=== PATIENT | male | born 1970 | race Two or more races ===

== ENCOUNTER 2020-05-08 11:28 | Outpatient (REF) | payer OTHER, SELFPAY ==
--- NOTE | 2020-05-08 14:18 | XR_ITS ---
EXAMINATION: XR SHOULDER, LEFT CLINICAL INFORMATION: Left shoulder pain. COMPARISON: None TECHNIQUE: Two views of the left shoulder. FINDINGS: The bones and soft tissues are normal. No fracture. Glenohumeral and acromioclavicular alignment is anatomic with normal joint space. No abnormal soft tissue calcifications. IMPRESSION: Unremarkable left shoulder.
== END 2020-05-08 11:29 | disposition home or self-care (01) ==
LOC: CF 11:28
PROVIDERS: PCP Internal Medicine; Referring Provider Internal Medicine; Visit Provider Dietitian, Registered
DX: E11.65 Type 2 diabetes mellitus with hyperglycemia (principal); Z79.4 Long term (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; Z71.3 Dietary counseling and surveillance; M25.512 Pain in left shoulder
CPT/HCPCS: 73030

== ENCOUNTER → 2020-07-10 10:30 | Outpatient (BNVA) | payer OTHER, SELFPAY | PROVIDERS: PCP Internal Medicine; Referring Provider Internal Medicine; Visit Provider Dietitian, Registered | DX: Z76.89 Persons encountering health services in other specified circumstances (principal) ==

== ENCOUNTER → 2020-07-25 12:12 | Outpatient (BNVA) | payer OTHER, SELFPAY | PROVIDERS: PCP Internal Medicine; Referring Provider Internal Medicine; Visit Provider Nurse Practitioner Gerontology | DX: Z13.89 Encounter for screening for other disorder (principal) | CPT/HCPCS: Q3014 ==

== ENCOUNTER 2020-07-31 09:31 | Emergency (ER) | payer OTHER, SELFPAY ==
[2020-07-31] VITALS (7 sets, daily range): BP systolic 119–150; BP diastolic 74–82; PULSE 72–89; RESP 12–18; TEMP 36.6–37.2; O2SAT 96–99; BMI 30.4
--- NOTE | 2020-07-31 10:34 | XR_ITS ---
EXAMINATION: XR CHEST CLINICAL INFORMATION: Seizure. COMPARISON: Chest 03/25/2013 TECHNIQUE: Frontal view of the chest was obtained. FINDINGS: The lungs are well-expanded with mild patchy reticular changes in both lungs but no confluent infiltrate seen. The heart size and pulmonary vascularity is normal. There is moderate spondylosis dorsal spine. XR/XR chest 1V IMPRESSION: Mild bilateral reticular interstitial prominence but no confluent infiltrate seen. Moderate spondylosis of dorsal spine.
--- NOTE | 2020-07-31 10:34 | ECG_ITS ---
Test Reason : SEIZURE Blood Pressure : / mmHG Vent. Rate : 080 BPM Atrial Rate : 080 BPM P-R Int : 176 ms QRS Dur : 102 ms QT Int : 428 ms P-R-T Axes : 016 -36 066 degrees QTc Int : 493 ms Normal sinus rhythm Left axis deviation Prolonged QT Abnormal ECG When compared with ECG of 01-JUN-2018 20:00, No significant change was found Referred By: Lissette Rodriguez Electronically Signed By:MARY BEVERLY
--- NOTE | 2020-07-31 10:34 | CT_ITS ---
EXAMINATION: CT HEAD WITHOUT CONTRAST CLINICAL INFORMATION: Seizure, head trauma COMPARISON: CT had noncontrast 08/10/2018. MR brain 02/13/2016. TECHNIQUE: Contiguous axial imaging was performed from the skull base to vertex without intravenous administration of contrast. This CT examination was performed using dose optimization techniques as appropriate, variously including the following: *Automated exposure control *Adjustment of mA and/or kV according to patient size (this includes techniques or standardized protocols for targeted exams where dose is matched to indication/reason for exam; i.e. extremities or head) *Use of iterative reconstruction technique DLP: 721 mGy-cm FINDINGS: There is no intracranial hemorrhage, hematoma, or extra-axial fluid collection. The ventricles are normal in size. There is no hydrocephalus, edema, or mass effect. The esquivel-white matter differentiation appears similar to prior exam. Again, there is focal atrophic change inferior frontal lobes, greater on right with accentuated cortical sulci and encephalomalacia, in retrospect similar to prior exam 2019 and described on MR brain 2015. There is no visible acute territorial infarct or mass lesion. The calvarium appears intact. There is no pneumocephalus or orbital emphysema. There is probable small retention cyst posterior left maxillary sinus 1.4 cm. No air-fluid levels sinuses or middle ears or mastoids. CT/CT head/brain wo con IMPRESSION: 1. No acute intracranial abnormality. 2. Atrophic changes bilateral inferior frontal lobes, greater on right similar to prior imaging.
[2020-07-31] MEDS: Acetaminophen 325 MG TABLET 650 MG PO (10:43)
--- NOTE | 2020-07-31 11:08 | ED.SEIZURE ---
HPI - Seizure General Chief Complaint: Seizure Stated Complaint: SZ 3-4 MINUTES Time Seen by Provider: 07/31/20 10:27 Source: patient and EMS Mode of arrival: EMS History of Present Illness HPI Narrative: 50-year-old male with past medical history of diabetes, hyperlipidemia, hypertension, schizoaffective disorder, asthma, epilepsy, CKD presenting to the ED with seizure at [facility] while on bike [employer]. Patient reports taking Lamictal and Zonisamide for his seizures, recently decreased dose of Zonisamide to 100 mg t.i.d. instead of q.i.d. denies missing any doses or having breakthrough seizure in the past 2-3 months. Reports residual headache at present, unknown head trauma after seizure but was on ground. Denies lightheadedness/dizziness at present, CP/SOB, fever/chills, recent illness or cough. Reports has follow-up with Dr. Gibson on Related Data Home Medications Medication Instructions Recorded Confirmed albuterol sulfate 90 mcg/actuation 2 puff INHALATION Q6H PRN 05/08/20 07/25/20 aerosol inhaler atorvastatin 10 mg tablet 10 mg PO BEDTIME 05/08/20 07/25/20 calcium polycarbophil 625 mg tablet 1,250 mg PO DAILY 05/08/20 07/25/20 cholecalciferol (vitamin D3) 1,250 1,250 mcg PO QWEEK 05/08/20 07/25/20 mcg (50,000 unit) capsule docusate sodium 100 mg capsule 100 mg PO BID 05/08/20 07/25/20 fluoxetine 20 mg capsule 20 mg PO DAILY 05/08/20 07/25/20 fluoxetine 40 mg capsule 40 mg PO QAM 05/08/20 07/25/20 fluticasone propionate 50 2 spray INTRANASAL DAILY 05/08/20 07/25/20 mcg/actuation nasal spray,suspension lamotrigine 200 mg tablet 200 mg PO BID 05/08/20 07/25/20 levothyroxine 125 mcg tablet 125 mcg PO DAILY 05/08/20 07/25/20 lisinopril 2.5 mg tablet 2.5 mg PO DAILY 05/08/20 07/25/20 lorazepam 0.5 mg tablet 0.5 mg PO TID PRN 05/08/20 07/25/20 meclizine 25 mg tablet 25 mg PO TID 05/08/20 07/25/20 melatonin 5 mg tablet 5 mg PO BEDTIME PRN 05/08/20 07/25/20 olanzapine 15 mg tablet 15 mg PO BEDTIME 05/08/20 07/25/20 omega-3 fatty acids 1,250 mg 1,250 mg PO DAILY 05/08/20 07/25/20 capsule omeprazole 20 mg tablet,delayed 20 mg PO DAILY 05/08/20 07/25/20 release polyethylene glycol 3350 17 17 g PO DAILY 05/08/20 07/25/20 gram/dose oral powder sennosides 8.6 mg tablet 8.6 mg PO DAILY 05/08/20 07/25/20 trazodone 50 mg tablet 50 mg PO BEDTIME PRN 05/08/20 07/25/20 zonisamide 100 mg capsule 100 mg PO BID 05/08/20 07/25/20 blood sugar diagnostic #10 ea 07/25/20 07/25/20 lancets 28 gauge #100 ea 07/25/20 07/25/20 pen needle, diabetic 32 gauge x #50 ea 07/25/20 07/25/20 Previous Rx's Medication Instructions Recorded fluticasone propionate 220 1 puff PO BID #36 g 07/05/20 mcg/actuation HFA aerosol inhaler tizanidine 4 mg tablet 4 mg PO TID PRN #90 tab 07/05/20 dulaglutide 0.75 mg/0.5 mL 0.75 mg SUBCUT QWEEK #6 ml 07/25/20 subcutaneous pen injector insulin glargine 100 unit/mL (3 11 unit SUBCUT QPM 90 Days #12 ml 07/25/20 mL) subcutaneous pen omega 6-vxe-bgh-fish oil 1,200 mg 1 cap PO DAILY #90 cap 07/29/20 (144 mg-216 mg) capsule Allergies Allergy/AdvReac Type Severity Reaction Status Date / Time No Known Allergies Allergy Unknown U Verified 07/25/20 14:15 Review of Systems Review of Systems: Constitutional: No Weight loss, No Fever, No Chills Eyes: No Eye Pain, No Vision Changes Cardiovascular: No Chest Pain, No SOB, No Palpitations Respiratory: No Cough, No Sputum, No Wheezing Gastrointestinal: No Nausea, No Vomiting, No Diarrhea, No Constipation, No Abdominal pain Genitourinary: No irregular bleeding, No Dysuria, No Urinary Frequency, No Hematuria Musculoskeletal: No joint pain, No Myalgias, No Joint Swelling Skin: No Skin Lesions, No rash Neuro: No Weakness, No Numbness, No Paresthesias, + Headache, No dizziness Yes all other systems are reviewed and are negative Neurologic: Denies Sensory deficit (Neuro) [facility] Past Medical History Attestation statement: The following information was validated with the patient. Medical History (Updated 07/31/20 @ 13:48 by JUSTIN Gonzalez) Anxiety Asthma Chronic kidney disease, stage 3 Epilepsy Essential hypertension Fatty liver GERD (gastroesophageal reflux disease) Hypothyroidism IBS (irritable colon syndrome) intermediate (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 Obesity (BMI 30-39.9) Pure hypercholesterolemia Schizoaffective disorder Seizures Type 2 diabetes mellitus with diabetic chronic kidney disease Vitamin D deficiency Surgical History (Updated 07/27/20 @ 06:43 by GABE Flynn) No pertinent past surgical history Family History Family History Father No problems noted. Mother Hypertension Social History Social History Smoking Status: Former smoker Advance Directives: No Advance Directives Information Provided: No Physical Exam Vital Signs: Vital Signs: Last Vital Signs Temp 98.9 F 07/31/20 11:24 Pulse 78 07/31/20 13:37 Resp 16 07/31/20 13:37 BP 141/82 H 07/31/20 13:37 Pulse Ox 98 07/31/20 13:37 Body Mass Index 30.4 Const: General: cooperative and healthy appearing Orientation/consciousness: patient oriented x3 Limitations: no limitations HENMT: Head: Yes normal to inspection Ears: hearing grossly normal bilaterally General nose exam: Normal external nose present Face and sinus: Yes normal facial exam Mouth: Normal oral and palatal mucosa present Throat: Yes posterior oropharynx normal Eyes: General: appearance normal, both eyes and all related structures Pupils: Equal, round and reactive pupils present EOM: EOMs intact bilaterally Neck: Neck: Yes normal visual inspection and Yes no meningeal signs Resp: Effort & Inspection: normal respiratory effort Auscultation: clear to auscultation bilaterally, no rales, no rhonchi and no wheezes Cardio: Rate: regular rate Heart sounds: S1 normal heart sound present and S2 normal heart sound present GI: Inspection: Yes normal to inspection Palpation (GI): Soft to palpation, nontender, no guarding and not rigid Skin: Rashes: no rashes Wounds: no wounds Neuro: General: patient oriented x3, tone normal, moves all extremities, no meningeal signs, no focal motor deficits and CN's II-XI intact bilaterally Cranial nerves: Yes Equal, round and reactive pupils present Cognition (Neuro): normal cognition Gait exam (Neuro): Normal gait present Motor exam (neuro): 5/5 motor strength present throughout Sensory Exam: No Sensory deficit (Neuro) Coordination: [id number] test normal and Romberg test negative Extrem: General: Yes normal to inspection Course Course Course Narrative: Labs at patient's baseline, UA negative CXR showing mild bilateral reticular interstitial prominence but no infiltrate seen > will obtain CT chest and test for COVID-[address] without acute intracranial abnormality. Atrophic changes bilateral inferior frontal lobes similar to prior imaging COVID-19/influenza/RSV negative > chest CT with subsegmental discoid atelectasis versus scarring. Otherwise lungs clear no airspace consolidation or ground-glass opacities. Spoke to patients Neurologist, Dr. Gibson, recommended keep patient at same medication dosages until his follow-up on . This was discussed with patient including worrisome signs and symptoms and strict return precautions. He verbalized understanding and feels safe for discharge home MDM - Seizure MDM Narrative Medical decision making narrative: 50-year-old male with past medical history of diabetes, hyperlipidemia, hypertension, schizoaffective disorder, asthma, epilepsy, CKD presenting to the ED with seizure at [facility] while on bike [employer]. On exam VSS, NAD/well-appearing, no focal neuro deficits. Likely breakthrough seizure due to medication change. Rule out infectious/metabolic etiology Plan: EKG, labs, UA, head CT, consult Dr. Gibson Lab Data Result diagrams: 07/31/20 11:17 07/31/20 11:17 Labs: Lab Results 07/31/20 07/31/20 07/31/20 Range/Units 11:13 11:17 11:17 WBC 9.2 (4.8-10.8) X10*3/uL RBC 3.90 L (4.60-5.80) X10*6/uL Hgb 11.3 L (14.0-18.0) g/dl Hct 34.7 L (42-52) % MCV 89.0 (80-98) fL MCH 29.0 (27.0-33.0) pg MCHC 32.6 (31.0-36.0) g/dl RDW 13.2 (11.0-16.0) % Plt Count 187 (160-400) X10*3/uL MPV 8.7 L (9.4-12.4) fL Immature Gran % (Auto) 0.7 H (0.0-0.4) % Neut % (Auto) 78.4 H (45-73) % Lymph % (Auto) 13.7 L (20-40) % [place] % (Auto) 6.5 (2-11) % Eos % (Auto) 0.4 (0-4) % Baso % (Auto) 0.3 (0-2) % Lymph # (Auto) 1.3 (1.2-4.9) X10*3/uL [place] # (Auto) 0.6 (0.1-1.2) X10*3/uL Eos # (Auto) 0.0 (0.0-0.4) X10*3/uL Baso # (Auto) 0.0 (0.0-0.2) X10*3/uL Abs Immat Gran (auto) 0.06 H (0.00-0.03) X10*3/uL Absolute Neuts (auto) 7.2 (2.0-8.3) X10*3/uL Absolute Nucleated RBC 0.000 (0.0-0.012) X10*3/uL Nucleated RBC % (auto) 0.0 (0.0-0.2) /100WBC PT 11.4 (10.8-13.0) SEC INR 1.0 (0.9-1.1) APTT (24.1-38.0) SEC Sodium (135-145) mmol/L Potassium (3.3-5.1) mmol/l Chloride (96-108) mmol/L Carbon Dioxide (22-29) mmol/L Anion Gap (12-20) BUN (9-16) mg/dL Creatinine (0.5-1.4) mg/dL Estim Creat Clear Calc Estimated GFR Random Glucose (60-115) mg/dL Calcium (8.4-10.2) mg/dL Magnesium (1.6-2.6) mg/dL Total Bilirubin (0.0-1.0) mg/dL Direct Bilirubin (0.0-0.5) mg/dL AST (5-37) U/L ALT (0-40) U/L Alkaline Phosphatase (39-117) U/L Total Protein (6.5-8.0) g/dL Albumin (3.5-5.0) g/dL Urine Color YELLOW Urine Appearance CLEAR Urine pH 6.5 (5.0-8.0) Ur Specific [place] <= 1.005 (1.005-1.025) Urine Protein NEG (NEG-TRACE) MG/DL Urine Glucose (UA) NEG (NEG) MG/DL Urine Ketones NEG (NEG) MG/DL Urine Blood NEG (NEG) Urine Nitrite NEG (NEG) Ur Leukocyte Esterase NEG (NEG) Coronavirus (PCR) (Negative) Influenza Type A (PCR) (Negative) Influenza Type B (PCR) (Negative) RSV RNA Qual (PCR) (Negative) 07/31/20 07/31/20 07/31/20 Range/Units 11:17 11:17 12:31 WBC (4.8-10.8) X10*3/uL RBC (4.60-5.80) X10*6/uL Hgb (14.0-18.0) g/dl Hct (42-52) % MCV (80-98) fL MCH (27.0-33.0) pg MCHC (31.0-36.0) g/dl RDW (11.0-16.0) % Plt Count (160-400) X10*3/uL MPV (9.4-12.4) fL Immature Gran % (Auto) (0.0-0.4) % Neut % (Auto) (45-73) % Lymph % (Auto) (20-40) % [place] % (Auto) (2-11) % Eos % (Auto) (0-4) % Baso % (Auto) (0-2) % Lymph # (Auto) (1.2-4.9) X10*3/uL [place] # (Auto) (0.1-1.2) X10*3/uL Eos # (Auto) (0.0-0.4) X10*3/uL Baso # (Auto) (0.0-0.2) X10*3/uL Abs Immat Gran (auto) (0.00-0.03) X10*3/uL Absolute Neuts (auto) (2.0-8.3) X10*3/uL Absolute Nucleated RBC (0.0-0.012) X10*3/uL Nucleated RBC % (auto) (0.0-0.2) /100WBC PT (10.8-13.0) SEC INR (0.9-1.1) APTT 33.9 (24.1-38.0) SEC Sodium 133 L (135-145) mmol/L Potassium 4.6 (3.3-5.1) mmol/l Chloride 100 (96-108) mmol/L Carbon Dioxide 26 (22-29) mmol/L Anion Gap 12 (12-20) BUN 18 H (9-16) mg/dL Creatinine 1.76 H (0.5-1.4) mg/dL Estim Creat Clear Calc 57.3 Estimated GFR 41 Random Glucose 127 H (60-115) mg/dL Calcium 8.3 L (8.4-10.2) mg/dL Magnesium 2.0 (1.6-2.6) mg/dL Total Bilirubin 0.4 (0.0-1.0) mg/dL Direct Bilirubin 0.2 (0.0-0.5) mg/dL AST 27 (5-37) U/L ALT 29 (0-40) U/L Alkaline Phosphatase 144 H (39-117) U/L Total Protein 6.6 (6.5-8.0) g/dL Albumin 4.3 (3.5-5.0) g/dL Urine Color Urine Appearance Urine pH (5.0-8.0) Ur Specific [place] (1.005-1.025) Urine Protein (NEG-TRACE) MG/DL Urine Glucose (UA) (NEG) MG/DL Urine Ketones (NEG) MG/DL Urine Blood (NEG) Urine Nitrite (NEG) Ur Leukocyte Esterase (NEG) Coronavirus (PCR) NEGATIVE (Negative) Influenza Type A (PCR) NEGATIVE (Negative) Influenza Type B (PCR) NEGATIVE (Negative) RSV RNA Qual (PCR) NEGATIVE (Negative) Discharge Plan Discharge Clinical Impression: Seizure Patient Disposition: Home, Self-Care Instructions: Epilepsy (ED) Additional Instructions: Continue taking your prescribed medications at the same dose until you follow-up with your neurologist, Dr. Gibson on Stay hydrated at home If you feel like you will have another seizure, or do have another seizure, or develops fever, chest pain, shortness of breath return to the ED Prescriptions: No Action fluticasone propionate [Flovent HFA] 220 mcg/actuation HFA aerosol inhaler 1 puff PO BID Qty: 36 RF: 1 tizanidine 4 mg tablet 4 mg PO TID PRN (Reason: for muscle spasm) Qty: 90 RF: 0 omega 2-lgo-wgg-fish oil [Fish Oil] 1,200 (144-216) mg capsule 1 cap PO DAILY Qty: 90 RF: 1 lorazepam 0.5 mg tablet 0.5 mg PO TID PRNRF: 0 olanzapine [Zyprexa] 15 mg tablet 15 mg PO BEDTIME RF: 0 lamotrigine 200 mg tablet 200 mg PO BID RF: 0 fluoxetine [Prozac] 20 mg capsule 20 mg PO DAILY RF: 0 atorvastatin 10 mg tablet 10 mg PO BEDTIME RF: 0 fluoxetine 40 mg capsule 40 mg PO QAM RF: 0 zonisamide 100 mg capsule 100 mg PO BID RF: 0 fluticasone propionate 50 mcg/actuation spray,suspension 2 spray intranasal DAILY RF: 0 melatonin 5 mg tablet 5 mg PO BEDTIME PRNRF: 0 omega-3 fatty acids 1,250 mg capsule 1,250 mg PO DAILY RF: 0 lisinopril 2.5 mg tablet 2.5 mg PO DAILY RF: 0 cholecalciferol (vitamin D3) 1,250 mcg (50,000 unit) capsule 1,250 mcg PO QWEEK RF: 0 omeprazole 20 mg tablet,delayed release (DR/EC) 20 mg PO DAILY RF: 0 meclizine 25 mg tablet 25 mg PO TID RF: 0 sennosides [senna] 8.6 mg tablet 8.6 mg PO DAILY RF: 0 polyethylene glycol 3350 [Miralax] 17 gram/dose powder 17 g PO DAILY RF: 0 docusate sodium [Colace] 100 mg capsule 100 mg PO BID RF: 0 calcium polycarbophil [Fiber Laxative (ca polycarbo)] 625 mg tablet 1,250 mg PO DAILY RF: 0 trazodone 50 mg tablet 50 mg PO BEDTIME PRNRF: 0 albuterol sulfate [ProAir HFA] 90 mcg/actuation HFA aerosol inhaler 2 puff inhalation Q6H PRNRF: 0 levothyroxine 125 mcg tablet 125 mcg PO DAILY RF: 0 (DME) lancets 28 gauge misc See Rx Instructions ea topical .MEDSUPPLY Qty: 100 RF: 0 (DME) pen needle, diabetic 32 gauge x 5/32 needle See Rx Instructions ea subcut .MEDSUPPLY Qty: 50 RF: 0 (DME) FreeStyle Lite Strips Strip See Rx Instructions ea Not Applicable BID Qty: 10 RF: 0 Lantus Solostar U-100 Insulin 100 unit/mL (3 mL) insulin pen 11 unit subcut QPM 90 Days Qty: 12 RF: 1 Trulicity 0.75 mg/0.5 mL pen injector 0.75 mg subcut QWEEK Qty: 6 RF: 2 Referrals: Shaun Gibson MD [Physician] - 3 days
[2020-07-31 11:22] LABS: MANUAL DIFF FLAG NO
[2020-07-31 11:24] LABS: Basophils Percent Auto 0.3 % (0-2); Eosinophils Percent Auto 0.4 % (0-4); Hematocrit 34.7 % (42-52); Hemoglobin 11.3 g/dl (14.0-18.0); Imm Gran Abs Auto 0.06 X10*3/uL (0.00-0.03); Imm Gran Pct Auto 0.7 % (0.0-0.4); Lymphocytes Absolute Auto 1.3 X10*3/uL (1.2-4.9); Lymphocytes Percent Auto 13.7 % (20-40); Mean Corpuscular HGB Conc 32.6 g/dl (31.0-36.0); Mean Platelet Volume 8.7 fL (9.4-12.4); Monocytes Absolute Auto 0.6 X10*3/uL (0.1-1.2); Monocytes Percent Auto 6.5 % (2-11); Neutrophils Absolute Auto 7.2 X10*3/uL (2.0-8.3); Neutrophils Percent Auto 78.4 % (45-73); Platelet Count 187 X10*3/uL (160-400); Red Cell Distribution Width 13.2 % (11.0-16.0); White Blood Count 9.2 X10*3/uL (4.8-10.8)
[2020-07-31 11:28] LABS: Glucose Urine UA NEG (NEG); Leukocyte Esterase Urine NEG (NEG); Nitrite Urine NEG (NEG); PH 6.5 (5.0-8.0); Specific Gravity - Urine <= 1.005 (1.005-1.025); Urine Blood NEG (NEG); Urine Ketones NEG (NEG); Urine Protein NEG (NEG-TRACE)
[2020-07-31 11:30] LABS: Appearance Urine CLEAR; Color Urine YELLOW
[2020-07-31 11:35] LABS: Prothrombin Time 11.4 SEC (10.8-13.0)
[2020-07-31 11:38] LABS: Partial Thromboplastin Time 33.9 SEC (24.1-38.0)
[2020-07-31 11:54] LABS: Alanine Aminotransferase 29 U/L (0-40); Albumin Level 4.3 g/dL (3.5-5.0); Alkaline Phosphatase 144 U/L (39-117); Anion Gap 12 (12-20); Aspartate Amino Transferase 27 U/L (5-37); Bilirubin Direct 0.2 mg/dL (0.0-0.5); Bilirubin Total 0.4 mg/dL (0.0-1.0); Blood Urea Nitrogen 18 mg/dL (9-16); Calcium 8.3 mg/dL (8.4-10.2); Carbon Dioxide 26 mmol/L (22-29); Chloride 100 mmol/L (96-108); Creatinine Clr Calc Pharmacy 57.3; Estimated Glomerular Filt Rate 41; Glucose Random 127 mg/dL (60-115); Potassium 4.6 mmol/l (3.3-5.1); Sodium 133 mmol/L (135-145); Total Protein 6.6 g/dL (6.5-8.0)
--- NOTE | 2020-07-31 12:22 | CT_ITS ---
EXAMINATION: CT CHEST WITHOUT CONTRAST CLINICAL INFORMATION: Seizure. Mild bilateral reticular interstitial prominence on chest radiograph. COMPARISON: Chest radiographs 07/31/2020, CT chest noncontrast 01/30/2016; renal ultrasound 08/20/2017 TECHNIQUE: Multidetector volumetric CT imaging of the chest was done. Axial MIP volume rendering provided. Sagittal and coronal reformatted images were obtained. This CT examination was performed using dose optimization techniques as appropriate, variously including the following: *Automated exposure control *Adjustment of mA and/or kV according to patient size (this includes techniques or standardized protocols for targeted exams where dose is matched to indication/reason for exam; i.e. extremities or head) *Use of iterative reconstruction technique DLP: 353 mGy-cm FINDINGS: LUNGS: The central airways are clear and there is no endobronchial lesion or bronchiectasis. There is no lobar or segmental airspace consolidation or groundglass opacities. Some fine linear disc atelectasis versus scarring is present right posterior base. There is no accentuated interstitial markings or fibrosis or honeycombing. MEDIASTINUM: Heart size normal. No pericardial effusion. Thoracic aorta normal in caliber. No hilar or mediastinal adenopathy. PLEURA: There is no pleural effusion. No pleural mass or thickening. AXILLA: No lymphadenopathy. UPPER ABDOMEN: Adrenal glands unremarkable. There are numerous bilateral cysts again seen in the kidneys. No hydronephrosis. OSSEOUS STRUCTURES: Unremarkable. CT/CT chest wo con IMPRESSION: 1. Subsegmental disc atelectasis versus linear scarring right posterior base. Lungs otherwise clear. 2. No airspace consolidation or suspicious groundglass opacities. No effusion. 3. No hilar or mediastinal adenopathy. 4. Chronic multiple bilateral renal cysts.
[2020-07-31 13:21] LABS: Influenza A PCR NEGATIVE (Negative); Influenza B PCR NEGATIVE (Negative); Resp Syncy Virus RNA Qual PCR NEGATIVE (Negative); SARS COV2 PCR INHOUSE NEGATIVE (Negative)
--- NOTE | 2020-07-31 13:35 | PC.NURSE ---
nad, no complaints, skin wpd, aware of care plan, ate a sandwich and soda
[2020-08-07 12:31] LABS: Zonisamide Zonegran <1.0 mcg/mL (10.0-40.0)
== END 2020-07-31 14:17 | disposition home or self-care (01) ==
PROVIDERS: Physician Assistant; Emergency Provider Emergency Medicine Emergency Medical Services; PCP Internal Medicine
DX: R56.9 Unspecified convulsions (principal); R51.9 Headache, unspecified; Z20.828 Contact with and (suspected) exposure to other viral communicable diseases; Z87.891 Personal history of nicotine dependence; Z79.899 Other long term (current) drug therapy
CPT/HCPCS: 0241U; 36415; 70450; 71045; 71250; 80048; 80076; 80175; 80203; 81003; 83735; 85025; 85610; 85730; 93005; 99284

== ENCOUNTER → 2020-09-15 10:26 | Outpatient (BNVA) | payer OTHER, SELFPAY | PROVIDERS: PCP Internal Medicine; Visit Provider Nurse Practitioner | DX: Z76.89 Persons encountering health services in other specified circumstances (principal) | CPT/HCPCS: Q3014 ==

== ENCOUNTER 2020-11-08 08:18 | Outpatient (REF) | payer OTHER, SELFPAY ==
[2020-11-08 09:15] LABS: MANUAL DIFF FLAG NO
[2020-11-08 09:24] LABS: Glucose Urine UA NEG (NEG); Leukocyte Esterase Urine NEG (NEG); Nitrite Urine NEG (NEG); Urine Blood NEG (NEG); Urine Ketones NEG (NEG); Urine Protein NEG (NEG-TRACE)
[2020-11-08 09:27] LABS: Appearance Urine CLEAR; Color Urine YELLOW
[2020-11-08 09:32] LABS: Basophils Percent Auto 0.6 % (0-2); Eosinophils Absolute Auto 0.1 X10*3/uL (0.0-0.4); Eosinophils Percent Auto 1.7 % (0-4); Hematocrit 37.3 % (42-52); Hemoglobin 11.9 g/dl (14.0-18.0); Imm Gran Abs Auto 0.02 X10*3/uL (0.00-0.03); Imm Gran Pct Auto 0.3 % (0.0-0.4); Lymphocytes Absolute Auto 1.8 X10*3/uL (1.2-4.9); Mean Corpuscular HGB Conc 31.9 g/dl (31.0-36.0); Monocytes Absolute Auto 0.5 X10*3/uL (0.1-1.2); Monocytes Percent Auto 6.4 % (2-11); Neutrophils Absolute Auto 4.6 X10*3/uL (2.0-8.3); Platelet Count 264 X10*3/uL (160-400); Red Cell Distribution Width 13.3 % (11.0-16.0); White Blood Count 7.1 X10*3/uL (4.8-10.8)
[2020-11-08 09:55] LABS: Alanine Aminotransferase 16 U/L (0-40); Albumin Level 4.3 g/dL (3.5-5.0); Alkaline Phosphatase 161 U/L (39-117); Anion Gap 13 (12-20); Aspartate Amino Transferase 17 U/L (5-37); Bilirubin Total 0.3 mg/dL (0.0-1.0); Carbon Dioxide 21 mmol/L (22-29); Chloride 111 mmol/L (96-108); Cholesterol 133 mg/dL; Estimated Glomerular Filt Rate 38; Glucose Fasting 105 mg/dL (60-99); HDL Cholesterol 36 mg/dL; LDL Cholesterol Calculated 67 mg/dl; Potassium 4.4 mmol/L (3.3-5.1); Sodium 141 mmol/L (135-145); Total Protein 6.9 g/dL (6.5-8.0); Triglycerides 152 mg/dL
[2020-11-08 10:03] LABS: Blood Urea Nitrogen 30 mg/dL (9-16)
[2020-11-08 10:07] LABS: TSH reflex Free T4 0.17 uIU/mL (0.32-4.0)
[2020-11-08 10:39] LABS: Creatinine Urine 48.23 mg/dL; Microalbum/Creatinine Ratio Ur 47.6 ug/mg cr
[2020-11-08 10:47] LABS: Free T4 (Free Thyroxine) 0.83 ng/dL (0.71-1.85)
[2020-11-12 19:06] LABS: Zonisamide Zonegran 6.5 mcg/mL (10.0-40.0)
== END 2020-11-08 08:19 | disposition home or self-care (01) ==
LOC: HO.LAB 08:18
PROVIDERS: Absent Provider Nurse Practitioner; PCP Internal Medicine; Visit Provider Internal Medicine
DX: E11.22 Type 2 diabetes mellitus with diabetic chronic kidney disease (principal); I12.9 Hypertensive chronic kidney disease with stage 1 through stage 4 chronic kidney disease, or unspecified chronic kidney disease; N18.30 Chronic kidney disease, stage 3 unspecified; E78.00 Pure hypercholesterolemia, unspecified; E66.9 Obesity, unspecified; G40.909 Epilepsy, unspecified, not intractable, without status epilepticus; Z79.4 Long term (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
CPT/HCPCS: 36415; 80053; 80061; 80203; 81003; 82043; 84439; 84443; 85025

== ENCOUNTER → 2021-01-08 10:22 | Outpatient (BNVA) | payer OTHER, SELFPAY | PROVIDERS: PCP Internal Medicine; Visit Provider Dietitian, Registered | DX: E11.65 Type 2 diabetes mellitus with hyperglycemia (principal); Z79.4 Long term (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 | CPT/HCPCS: 97803 ==

== ENCOUNTER → 2021-03-09 09:54 | Outpatient (BNVA) | payer OTHER, SELFPAY | PROVIDERS: Visit Provider Nurse Practitioner | DX: K58.2 Mixed irritable bowel syndrome (principal); Z12.11 Encounter for screening for malignant neoplasm of colon; K21.9 Gastro-esophageal reflux disease without esophagitis; R35.0 Frequency of micturition; J45.20 Mild intermittent asthma, uncomplicated | CPT/HCPCS: 99212 ==

== ENCOUNTER 2021-03-30 10:23 | Outpatient (REF) | payer OTHER, SELFPAY ==
--- NOTE | ~2021-03-30 | XR_ITS ---
EXAMINATION: XR SHOULDER, RIGHT CLINICAL INFORMATION: Shoulder pain COMPARISON: None TECHNIQUE: AP external rotation, Grashey, scapular Y, and axillary views of the right shoulder. FINDINGS: The bones and soft tissues are normal. No fracture. Glenohumeral and acromioclavicular alignment is anatomic with normal joint space. No abnormal soft tissue calcifications. XR/XR shoulder RT min 2V IMPRESSION: Normal right shoulder.
== END 2021-03-30 10:24 | disposition home or self-care (01) ==
LOC: HO.XRAY 10:23
PROVIDERS: PCP Internal Medicine; Visit Provider Internal Medicine
DX: M25.511 Pain in right shoulder (principal)
CPT/HCPCS: 73030

== ENCOUNTER 2021-04-11 08:43 | Outpatient (REF) | payer OTHER, SELFPAY ==
[2021-04-11 09:27] LABS: MANUAL DIFF FLAG NO
[2021-04-11 09:39] LABS: Basophils Percent Auto 0.3 % (0-2); Eosinophils Absolute Auto 0.1 X10*3/uL (0.0-0.4); Eosinophils Percent Auto 1.1 % (0-4); Hematocrit 37.1 % (42-52); Hemoglobin 11.8 g/dl (14.0-18.0); Imm Gran Abs Auto 0.04 X10*3/uL (0.00-0.03); Imm Gran Pct Auto 0.6 % (0.0-0.4); Lymphocytes Absolute Auto 1.5 X10*3/uL (1.2-4.9); Lymphocytes Percent Auto 23.8 % (20-40); Mean Corpuscular HGB Conc 31.8 g/dl (31.0-36.0); Mean Corpuscular Hemoglobin 28.8 pg (27.0-33.0); Mean Corpuscular Volume 90.5 fL (80-98); Monocytes Absolute Auto 0.4 X10*3/uL (0.1-1.2); Monocytes Percent Auto 5.6 % (2-11); Neutrophils Absolute Auto 4.5 X10*3/uL (2.0-8.3); Neutrophils Percent Auto 68.6 % (45-73); Platelet Count 250 X10*3/uL (160-400); Red Cell Distribution Width 13.3 % (11.0-16.0); White Blood Count 6.5 X10*3/uL (4.8-10.8)
[2021-04-11 10:15] LABS: Alanine Aminotransferase 25 U/L (0-40); Albumin Level 4.5 g/dL (3.5-5.0); Alkaline Phosphatase 190 U/L (39-117); Anion Gap 15 (12-20); Aspartate Amino Transferase 26 U/L (5-37); Bilirubin Total 0.4 mg/dL (0.0-1.0); Blood Urea Nitrogen 25 mg/dL (9-16); Calcium 9.5 mg/dL (8.4-10.2); Carbon Dioxide 22 mmol/L (22-29); Chloride 109 mmol/L (96-108); Cholesterol 145 mg/dL; Estimated Glomerular Filt Rate 30; Glucose Fasting 132 mg/dL (60-99); HDL Cholesterol 40 mg/dL; LDL Cholesterol Calculated 77 mg/dl; Potassium 5.4 mmol/L (3.3-5.1); Sodium 141 mmol/L (135-145); Triglycerides 142 mg/dL
[2021-04-11 10:21] LABS: Erythrocyte Sedimentation Rate 9 MM/HR (0-15)
[2021-04-11 10:37] LABS: TSH reflex Free T4 0.96 uIU/mL (0.32-4.0)
[2021-04-11 10:40] LABS: Appearance Urine CLEAR; Color Urine YELLOW; Glucose Urine UA NEG (NEG); Leukocyte Esterase Urine NEG (NEG); Nitrite Urine NEG (NEG); PH 6.5 (5.0-8.0); Urine Blood NEG (NEG); Urine Ketones NEG (NEG); Urine Protein NEG (NEG-TRACE)
[2021-04-11 10:52] LABS: Folate 15.5 ng/mL (> or = 4.0); Vitamin B12 547 pg/mL (200-900)
[2021-04-15 17:57] LABS: Zonisamide Zonegran 10.7 mcg/mL (10.0-40.0)
== END 2021-04-11 08:44 | disposition home or self-care (01) ==
LOC: HO.LAB 08:43
PROVIDERS: PCP Internal Medicine; Visit Provider Internal Medicine
DX: I12.9 Hypertensive chronic kidney disease with stage 1 through stage 4 chronic kidney disease, or unspecified chronic kidney disease (principal); N18.30 Chronic kidney disease, stage 3 unspecified; E11.22 Type 2 diabetes mellitus with diabetic chronic kidney disease; E78.00 Pure hypercholesterolemia, unspecified; G40.909 Epilepsy, unspecified, not intractable, without status epilepticus; R41.3 Other amnesia; E66.9 Obesity, unspecified; Z79.4 Long term (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; Z79.899 Other long term (current) drug therapy
CPT/HCPCS: 36415; 80053; 80061; 80203; 81003; 82043; 82607; 82746; 84443; 85025; 85652

== ENCOUNTER 2021-05-13 19:16 | Emergency (ER) | payer OTHER, SELFPAY ==
[2021-05-13 19:25] VITALS: BP 154/82; PULSE 85; RESP 16; TEMP 36.6; O2SAT 98; BMI 28.1
--- NOTE | 2021-05-13 20:17 | ED.ANXIETY ---
HPI - Anxiety General Chief Complaint: Anxiety Stated Complaint: ?POSSIBLE HOME MED ERROR T-1,WEAKNESS PER PT Time Seen by Provider: 05/13/21 20:05 Source: patient Mode of arrival: EMS Limitations: no limitations History of Present Illness HPI narrative: 51-year-old male who presents emergency department for evaluation of has a history of schizoaffective disorder and he is on multiple medications. He states that yesterday he accidentally took all of his morning medications twice . He states that he had no bad side effects from this medication air. He states that this morning after discussion with his nurse, he took his morning medications again as usual with no adverse effects. He states that he walked to the grocery store and then got into an argument with a information clerk cashier. He states that he was very upset by this argument. He states that he was then walking home and felt diaphoretic lightheaded and was having difficulty walking. States that his heart was racing. He states that he was very concerned about these symptoms and called an ambulance and was brought to the emergency department for evaluation. Here in the emergency department he states that his symptoms have resolved. The patient however is very upset that he is here in [place] and he is not sure how he can get back to his home in [place]. Related Data Home Medications Medication Instructions Recorded Confirmed albuterol sulfate 90 mcg/actuation 2 puff INHALATION Q6H PRN 05/08/20 04/30/21 aerosol inhaler (ProAir HFA) fluoxetine 40 mg capsule 40 mg PO QAM 05/08/20 04/30/21 lamotrigine 200 mg tablet 200 mg PO BID 05/08/20 04/30/21 lorazepam 0.5 mg tablet 0.5 mg PO TID PRN 05/08/20 04/30/21 meclizine 25 mg tablet 25 mg PO TID 05/08/20 04/30/21 melatonin 5 mg tablet 5 mg PO BEDTIME PRN 05/08/20 04/30/21 omega-3 fatty acids 1,250 mg 1,250 mg PO DAILY 05/08/20 03/25/21 capsule trazodone 50 mg tablet 50 mg PO BEDTIME PRN 05/08/20 04/30/21 zonisamide 100 mg capsule 100 mg PO BID 05/08/20 04/30/21 pen needle, diabetic 32 gauge x #50 ea 12/22/20 08/22/21 5/32 blood sugar diagnostic #10 ea 12/19/20 03/25/21 Previous Rx's Medication Instructions Recorded insulin glargine 100 unit/mL (3 11 unit SUBCUT QPM 90 Days #12 ml 07/25/20 mL) subcutaneous pen (Lantus Solostar U-100 Insulin) omega 5-ija-rel-fish oil 1,200 mg 1 cap PO DAILY #90 cap 07/29/20 (144 mg-216 mg) capsule (Fish Oil) tizanidine 4 mg tablet 4 mg PO TID PRN #90 tab 08/08/20 pen needle, diabetic 32 gauge x 1 ea SUBCUT DAILY #100 ea 11/11/20 (BD Ultra-Fine Leeanne Pen Needle) ergocalciferol (vitamin D2) 1,250 1,250 mcg PO QWEEK #12 cap 11/25/20 mcg (50,000 unit) capsule fluticasone propionate 220 1 puff PO BID #36 g 12/25/20 mcg/actuation HFA aerosol inhaler (Flovent HFA) fluticasone propionate 50 1 spray INTRANASAL DAILY #48 ml 12/27/20 mcg/actuation nasal spray,suspension levothyroxine 125 mcg tablet 125 mcg PO DAILY #90 tab 12/27/20 dulaglutide 0.75 mg/0.5 mL 0.75 mg SUBCUT QWEEK #6 ml 02/06/21 subcutaneous pen injector (Trulicity) bisacodyl 5 mg tablet,delayed 10 mg PO BEDTIME 2 Days #4 tab 03/09/21 release (Dulcolax (bisacodyl)) calcium polycarbophil 625 mg 625 mg PO BID PRN #60 tab 03/09/21 tablet (Fiber Laxative (calcium polycarbophil)) lisinopril 2.5 mg tablet 2.5 mg PO DAILY #90 tab 03/09/21 omeprazole 20 mg capsule,delayed 20 mg PO DAILY 30 Days #30 cap 03/09/21 release peg 3350-electrolytes 236 240 ml PO Q10M 1 Days #4000 ml 03/09/21 gram-22.74 gram-6.74 gram-5.86 gram solution (Golytely) polyethylene glycol 3350 17 17 g PO DAILY #510 g 03/09/21 gram/dose oral powder (Gavilax) atorvastatin 10 mg tablet 10 mg PO BEDTIME #90 tab 03/28/21 lancets 28 gauge (FreeStyle 28 gauge TOPICAL DAILY #100 cap 04/25/21 Lancets) Allergies Allergy/AdvReac Type Severity Reaction Status Date / Time No Known Allergies Allergy Unknown U Verified 03/25/21 23:24 Review of Systems Review of Systems: Yes all other systems are reviewed and are negative [facility] Past Medical History [facility] Narrative: Social history: He denies tobacco use. He states that he rarely drinks alcohol. He denies drug use. 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 Mother Hypertension Social History Social History Household Members: None Housing: Condominium Alcohol intake: current Alcohol intake frequency: does not drink Patient Tobacco Use Status: Former Tobacco user Second Hand Smoke Exposure: Yes Advance Directives: No Advance Directives Information Provided: No service: No Current occupational status: disabled Physical Exam Vital Signs: Vital Signs: Last Vital Signs Temp 98 F 05/13/21 19:25 Pulse 85 05/13/21 19:25 Resp 16 05/13/21 19:25 BP 154/82 H 05/13/21 19:25 Pulse Ox 98 05/13/21 19:25 Body Mass Index 28.1 Const: Other: Awake alert male patient, he does appear to be anxious but is otherwise cooperative. Orientation/consciousness: oriented to person and oriented to place HENMT: Head: Yes normal to inspection, Yes normocephalic and Yes atraumatic Ears: external ears normal General nose exam: Normal external nose present Face and sinus: Yes normal facial exam Mouth: Normal oral and palatal mucosa present Throat: Yes posterior oropharynx normal Eyes: General: appearance normal, both eyes and all related structures Pupils: Equal, round and reactive pupils present Neck: Neck: Yes normal visual inspection, Yes no lymphadenopathy, Yes trachea midline and Yes supple Chest: Chest palpation & inspection: normal inspection of the chest and normal palpation of entire chest wall Resp: Effort & Inspection: normal respiratory effort and able to speak in complete sentences Auscultation: clear to auscultation bilaterally Cardio: Rate: regular rate Rhythm: regular rhythm Heart sounds: S1 normal heart sound present, S2 normal heart sound present and no murmurs GI: Inspection: Yes normal to inspection Palpation (GI): Soft to palpation, nontender and no guarding Auscultation: normal bowel sounds : General: Yes no CVA tenderness Back/Spine/Pelvis: Back: no CVA tenderness Skin: General skin exam: no rashes or lesions noted Neuro: General: oriented to person and oriented to place Cranial nerves: Yes CN's II-XII intact bilaterally and Yes Equal, round and reactive pupils present Cognition (Neuro): normal cognition Motor exam (neuro): 5/5 motor strength present throughout Coordination: [id number] test normal, [id number] test normal and other (Able to walk in the emergency department without any difficulty) Extrem: General: Yes normal to inspection Psych: Appearance: grossly normal Speech and movement: Normal speech and movement present Affect: normal affect Attitude: cooperative Thought process: Normal thought process present Thought content: Normal thought content present Course Course Course Narrative: 51-year-old male with history of schizoaffective disorder who presents to the emergency department for evaluation diaphoresis, lightheadedness and difficulty walking after getting in an argument with the information clerk cashier at a [employer]. The patient was concerned about taking his psychiatric medications twice yesterday accidentally and the fact that he took his medications as usual today. On presentation the patient does appear to be anxious. Exam was otherwise unremarkable. Patient is able to walk in the emergency department without difficulty. At this time I suspect the patient's symptoms are consistent with hyperventilation/anxiety attack triggered by his argument with a information clerk cashier. I reassured the patient that taking a double dose of his medications yesterday morning did not caused his symptoms today . The patient will be discharged home. Discharge Plan Discharge Clinical Impression: Acute hyperventilation syndrome, Anxiety attack Patient Disposition: Home, Self-Care Instructions: Hyperventilation (ED) Additional Instructions: At this time, I do not think that your symptoms for related to the double dose of medications that you took yesterday or your usual dose of medications that you took today. Your symptoms are more consistent with hyperventilation/anxiety syndrome caused by your interaction with the information clerk cashier. At this time, your exam is normal and I think that it is okay to send you home. Continue taking medications as prescribed by your providers. Follow-up with your doctor in 2 days. Please return to the emergency department if your symptoms get worse or if you develop any symptoms that are concerning to you. Prescriptions: No Action omega 2-ria-wsx-fish oil [Fish Oil] 1,200 (144-216) mg capsule 1 cap PO DAILY Qty: 90 RF: 1 tizanidine 4 mg tablet 4 mg PO TID PRN (Reason: for muscle spasm) Qty: 90 RF: 0 pen needle, diabetic [BD Ultra-Fine Leeanne Pen Needle] 32 gauge x 5/32 needle 1 ea subcut DAILY Qty: 100 RF: 2 ergocalciferol (vitamin D2) 1,250 mcg (50,000 unit) capsule 1,250 mcg PO QWEEK Qty: 12 RF: 2 Flovent HFA 220 mcg/actuation HFA aerosol inhaler 1 puff PO BID Qty: 36 RF: 1 fluticasone propionate 50 mcg/actuation spray,suspension 1 spray intranasal DAILY Qty: 48 RF: 1 levothyroxine 125 mcg tablet 125 mcg PO DAILY Qty: 90 RF: 1 dulaglutide [Trulicity] 0.75 mg/0.5 mL pen injector 0.75 mg subcut QWEEK Qty: 6 RF: 3 lisinopril 2.5 mg tablet 2.5 mg PO DAILY Qty: 90 RF: 1 atorvastatin 10 mg tablet 10 mg PO BEDTIME Qty: 90 RF: 1 lancets [FreeStyle Lancets] 28 gauge misc 28 gauge topical DAILY Qty: 100 RF: 11 lorazepam 0.5 mg tablet 0.5 mg PO TID PRN (Reason: Anxiety) RF: 0 lamotrigine 200 mg tablet 200 mg PO BID RF: 0 fluoxetine 40 mg capsule 40 mg PO QAM RF: 0 zonisamide 100 mg capsule 100 mg PO BID RF: 0 melatonin 5 mg tablet 5 mg PO BEDTIME PRN (Reason: Insomnia) RF: 0 omega-3 fatty acids 1,250 mg capsule 1,250 mg PO DAILY RF: 0 meclizine 25 mg tablet 25 mg PO TID RF: 0 trazodone 50 mg tablet 50 mg PO BEDTIME PRN (Reason: Insomnia) RF: 0 albuterol sulfate [ProAir HFA] 90 mcg/actuation HFA aerosol inhaler 2 puff inhalation Q6H PRN (Reason: Wheezing) RF: 0 (DME) FreeStyle Lite Strips Strip See Rx Instructions ea Not Applicable BID Qty: 10 RF: 0 bisacodyl [Dulcolax (bisacodyl)] 5 mg tablet,delayed release (DR/EC) 10 mg PO BEDTIME 2 Days Qty: 4 RF: 0 peg 3350-electrolytes [Golytely] 236-22.74-6.74 -5.86 gram recon soln 240 ml PO Q10M 1 Days Qty: 4000 RF: 0 calcium polycarbophil [Fiber Laxative (ca polycarbo)] 625 mg tablet 625 mg PO BID PRN (Reason: constipation) Qty: 60 RF: 6 omeprazole 20 mg capsule,delayed release(DR/EC) 20 mg PO DAILY 30 Days Qty: 30 RF: 6 polyethylene glycol 3350 [Gavilax] 17 gram/dose powder 17 g PO DAILY Qty: 510 RF: 3 (DME) pen needle, diabetic 32 gauge x 5/32 needle See Rx Instructions ea subcut .MEDSUPPLY Qty: 50 RF: 0 Lantus Solostar U-100 Insulin 100 unit/mL (3 mL) insulin pen 11 unit subcut QPM 90 Days Qty: 12 RF: 1
== END 2021-05-13 20:48 | disposition home or self-care (01) ==
PROVIDERS: Emergency Provider Emergency Medicine Emergency Medical Services; PCP Internal Medicine
DX: F41.0 Panic disorder [episodic paroxysmal anxiety] (principal); F45.8 Other somatoform disorders; F25.9 Schizoaffective disorder, unspecified; Z79.899 Other long term (current) drug therapy
CPT/HCPCS: 99283

== ENCOUNTER → 2021-07-10 10:29 | Outpatient (BNVA) | payer OTHER, SELFPAY | PROVIDERS: PCP Internal Medicine; Visit Provider Dietitian, Registered | DX: E11.65 Type 2 diabetes mellitus with hyperglycemia (principal); Z79.4 Long term (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 | CPT/HCPCS: 97803 ==

== ENCOUNTER 2021-07-23 09:57 | Day surgery (SDC) | payer OTHER, SELFPAY ==
[2021-04-30 15:17] VITALS: BMI 31.6
--- NOTE | 2021-05-04 12:53 | HO.ANESPROP2 ---
HPI - Anesthesia Eval Consult details Narrative: 51 yo male patient for colonoscopy [facility] Active Problems Active Problems: All Active Problems (Updated 03/21/21 @ 13:26 by Zeb Ca MD) Right shoulder pain (Acute) Memory impairment (Acute) Colon cancer screening (Acute) Urinary frequency (Acute) Irritable bowel syndrome with both constipation and diarrhea (Acute) GERD (gastroesophageal reflux disease) (Acute) Type 2 diabetes mellitus with hyperglycemia (Acute) Type 2 diabetes mellitus with diabetic chronic kidney disease (Acute) Pure hypercholesterolemia (Acute) Essential hypertension (Acute) Obesity (BMI 30-39.9) (Acute) Left shoulder pain (Acute) Schizoaffective disorder (Acute) Asthma (Acute) Epilepsy (Acute) [facility] (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 (Acute) Chronic kidney disease, stage 3 (Acute) Past Medical History Medical History (Updated 03/21/21 @ 13:26 by Zeb Ca MD) Anxiety Asthma Chronic kidney disease, stage 3 Epilepsy Essential hypertension Fatty liver GERD (gastroesophageal reflux disease) Hypothyroidism IBS (irritable colon syndrome) 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 Mother Hypertension Surgical History Surgical History No pertinent past surgical history Social History Social History Household Members: None [facility] Alcohol intake: current Alcohol intake frequency: does not drink Patient Tobacco Use Status: Former Tobacco user Second Hand Smoke Exposure: Yes service: No Current occupational status: disabled Meds Allergies Allergy/AdvReac Type Severity Reaction Status Date / Time No Known Allergies Allergy Unknown U Verified 03/25/21 23:24 Home Medications Medication Instructions Recorded Confirmed Last Taken Type albuterol sulfate 90 mcg/actuation 2 puff INHALATION Q6H PRN 05/08/20 04/30/21 Unknown History aerosol inhaler (ProAir HFA) fluoxetine 40 mg capsule 40 mg PO QAM 05/08/20 04/30/21 Unknown History lamotrigine 200 mg tablet 200 mg PO BID 05/08/20 04/30/21 Unknown History lorazepam 0.5 mg tablet 0.5 mg PO TID PRN 05/08/20 04/30/21 Unknown History meclizine 25 mg tablet 25 mg PO TID 05/08/20 04/30/21 Unknown History melatonin 5 mg tablet 5 mg PO BEDTIME PRN 05/08/20 04/30/21 Unknown History omega-3 fatty acids 1,250 mg 1,250 mg PO DAILY 05/08/20 03/25/21 Unknown History capsule trazodone 50 mg tablet 50 mg PO BEDTIME PRN 05/08/20 04/30/21 Unknown History zonisamide 100 mg capsule 100 mg PO BID 05/08/20 04/30/21 Unknown History pen needle, diabetic 32 gauge x #50 ea 07/25/20 03/25/21 Unknown History blood sugar diagnostic #10 ea 12/19/20 03/25/21 Unknown History Exam Exam Date and Time: May 04, 2021 1253 Height,Weight and Vital Signs: Height 5 ft 9 in Weight 97.069 kg
[2021-07-23 11:08] VITALS: BP 140/72; PULSE 56; RESP 18; TEMP 36.5; O2SAT 98
[2021-07-23 11:12] LABS: Glucose, Whole Blood 119 mg/dL (60-115)
--- NOTE | 2021-07-23 11:18 | MHC.SHP ---
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 Obesity (BMI 30-39.9) Pure hypercholesterolemia Schizoaffective disorder Seizures Type 2 ) History of Previous Operations: No relevant previous surgery Allergies: Allergies Allergy/AdvReac Type Severity Reaction Status Date / Time No Known Allergies Allergy Unknown U Verified 07/16/21 13:47 Review of Systems Sugical H&P ROS: Negative: Constitution and Cardiovascular and Yes, Specify: Gastrointestinal (IBS) Exam Surgical H&P Exam: Normal: Heart, Normal: Lungs and Normal: Abdomen Plan Diagnosis/Plan: Unchanged I have reviewed the history and physical and performed a pertinent physical examination on my patient. No changes have occurred unless specified.
--- NOTE | 2021-07-23 11:24 | PM.OP ---
Brief Operative Note Date of Service: 07/23/21 Pre-op diagnosis: Colon cancer screening, IBS Post-op diagnosis: other (Colon polyps, diverticulosis, hemorrhoids) Procedure: COLONOSCOPY TILL CECUM WITH BIOPSIES Consent: Indications for the procedure and potential complications of bleeding, perforation, reaction to medications and missed diagnosis were discussed with the patient and informed consent was obtained. Instrument: Olympus PCF H 190 L variable stiffness pediatric colonoscope Monitoring: Vital signs and clinical assessment, intermittent blood pressure monitoring, continuous EKG monitoring, Pulse oximetry and Carbon Dioxide monitoring were done throughout the procedure. Colon withdrawl time was 20 minutes. Procedure: The patient was placed in the left lateral decubitis position and pre-procedure medications were administered. After a digital rectal examination of the ano-rectum, the video colonoscope was inserted into the rectum and advanced through the colon to the cecum. The colonoscope was slowly withdrawn in a retrograde panoramic fashion and the colon mucosa was carefully examined including a retroflexed view of the rectum. Findings and interventions are described below. Procedure Difficulty: Colon was long and tortuous and there was some formation loop formation. No manuvers were required Findings: Terminal Ileum: Not evaluated Cecum: Normal Ascending Colon: Normal Transverse Colon: Two 5-6 mm hyperplastic appearing polyps removed with a cold biopsy Descending Colon: Normal Sigmoid Colon: Moderate diverticulosis Rectum: A few 4-5 mm diminutive appearing polyps - 1 removed with a cold biopsy Ano-rectum: Small internal hemorrhoids Colon preparation: Excellent Impression and Post Procedure Diagnosis: Colonoscopy Findings: Three small polyps removed Moderate diverticulosis seen in the sigmoid colon Small hemorrhoids on retroflexed exam. Plan: Await pathology results Patient has an appointment on 08/06/21 in the GI Clinic with Yesica Sibley NP. Repeat Colonoscopy interval based on path - in 5 years if polyps are adenomatous and 10 years if polyps are hyperplastic. Above findings were reviewed with the patient and colon polyps and diverticulosis handouts were given in the discharge area Surgeon: Britney Lewis MD Anesthesia: MAC (Dr Brown & Sonia Braden CRNA) Was an Trial Paralegal used for this Procedure?: Yes Trial Paralegal: Sofia Vargas Estimated blood loss (mL): 0 Pathology: other (A. random colon bxs, R/O microscopic colitis B. transverse colon polyps (2) C. rectal polyp) Condition: stable Disposition: PACU
[2021-07-23] MEDS: Lactated Ringers 1,000 ML 50 ML IVCONT (11:27)
--- NOTE | 2021-07-23 11:37 | W.PM.OPN ---
Operative Note Operative Note Date of Service: 07/23/21 Narrative: Pre-op diagnosis:?Colon cancer screening, IBS Post-op diagnosis:?other (Colon polyps, diverticulosis, hemorrhoids) Procedure:? COLONOSCOPY TILL CECUM WITH BIOPSIES Consent: Indications for the procedure and potential complications of bleeding, perforation, reaction to medications and missed diagnosis were discussed with the patient and informed consent was obtained. Instrument: Olympus PCF H 190 L variable stiffness pediatric colonoscope Monitoring: Vital signs and clinical assessment, intermittent blood pressure monitoring, continuous EKG monitoring, Pulse oximetry and Carbon Dioxide monitoring were done throughout the procedure. Colon withdrawl time was 20 minutes. Procedure: The patient was placed in the left lateral decubitis position and pre-procedure medications were administered. After a digital rectal examination of the ano-rectum, the video colonoscope was inserted into the rectum and advanced through the colon to the cecum. The colonoscope was slowly withdrawn in a retrograde panoramic fashion and the colon mucosa was carefully examined including a retroflexed view of the rectum. Findings and interventions are described below. Procedure Difficulty:? Colon was long and tortuous and there was some formation loop formation.? No manuvers were required Findings: Terminal Ileum: Not evaluated Cecum:? Normal Ascending Colon:? Normal Transverse Colon:? Two 5-6 mm hyperplastic appearing polyps removed with a cold biopsy Descending Colon:? Normal Sigmoid Colon:? Moderate diverticulosis Rectum:? A few 4-5 mm diminutive appearing polyps - 1 removed with a cold biopsy Ano-rectum:? Small internal hemorrhoids Colon preparation: Excellent ? Impression and Post Procedure Diagnosis: Colonoscopy Findings: Three small polyps removed Moderate diverticulosis seen in the sigmoid colon Small hemorrhoids on retroflexed exam. Plan: Await pathology results Patient has an appointment on 08/06/21 in the GI Clinic with? Yesica Sibley NP. Repeat Colonoscopy interval based on path - in 5 years if polyps are adenomatous and 10 years if polyps are hyperplastic (adult colonoscope for future colonoscopies) Above findings were reviewed with the patient and colon polyps and diverticulosis handouts were given in the discharge area Surgeon:?Britney Lewis MD Anesthesia:?MAC (Dr Brown & Sonia Braden CRNA) Was an Capacity Management Specialist used for this Procedure?:?Yes Capacity Management Specialist:?Sofia Vargas Estimated blood loss (mL):?0 Pathology:?other (A. random colon bxs, R/O microscopic colitis? B. transverse colon polyps (2)? C. rectal polyp) Condition:?stable Disposition:?PACU
[2021-07-23 12:18] VITALS: BP 128/54; PULSE 61; RESP 18; TEMP 37; O2SAT 98
[2021-07-23 12:33] VITALS: BP 121/52; PULSE 60; RESP 18; O2SAT 100
[2021-07-23 12:48] VITALS: BP 146/79; PULSE 59; RESP 18; O2SAT 99
[2021-07-23 13:03] VITALS: BP 156/88; PULSE 57; RESP 18; O2SAT 99
[2021-07-23 13:18] VITALS: BP 135/75; PULSE 51; RESP 18; TEMP 37.1; O2SAT 100
[2021-07-23] MEDS: Acetaminophen 325 MG TABLET 650 MG PO (13:43)
== END 2021-07-23 14:45 | disposition home or self-care (01) ==
PROVIDERS: PCP Internal Medicine; Visit Provider Internal Medicine Gastroenterology
PROC: 0DJD8ZZ Inspection of Lower Intestinal Tract, Via Natural or Artificial Opening Endoscopic (ICD-10-PCS; CPT 45378; principal; 2021-07-23 13:50)
DX: Z12.11 Encounter for screening for malignant neoplasm of colon (principal); K63.5 Polyp of colon; K58.2 Mixed irritable bowel syndrome; K62.1 Rectal polyp; K57.30 Diverticulosis of large intestine without perforation or abscess without bleeding; K64.8 Other hemorrhoids; K21.9 Gastro-esophageal reflux disease without esophagitis; R35.0 Frequency of micturition; J45.20 Mild intermittent asthma, uncomplicated; E11.22 Type 2 diabetes mellitus with diabetic chronic kidney disease; I12.9 Hypertensive chronic kidney disease with stage 1 through stage 4 chronic kidney disease, or unspecified chronic kidney disease; N18.30 Chronic kidney disease, stage 3 unspecified; G40.909 Epilepsy, unspecified, not intractable, without status epilepticus; Z79.4 Long term (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; Z79.899 Other long term (current) drug therapy; Z87.891 Personal history of nicotine dependence
CPT/HCPCS: 45380; 82947; 88305

== ENCOUNTER → 2021-08-16 12:27 | Outpatient (BNVA) | payer OTHER, SELFPAY | PROVIDERS: PCP Internal Medicine; Referring Provider Internal Medicine; Visit Provider Nurse Practitioner | DX: Z12.11 Encounter for screening for malignant neoplasm of colon (principal); K21.9 Gastro-esophageal reflux disease without esophagitis; K58.2 Mixed irritable bowel syndrome | CPT/HCPCS: 99212 ==

== ENCOUNTER 2021-08-17 07:47 | Outpatient (REF) | payer OTHER, SELFPAY ==
[2021-08-17 08:14] LABS: MANUAL DIFF FLAG NO
[2021-08-17 08:22] LABS: Basophils Percent Auto 0.3 % (0-2); Eosinophils Absolute Auto 0.1 X10*3/uL (0.0-0.4); Eosinophils Percent Auto 1.4 % (0-4); Hematocrit 37.2 % (42.0-52.0); Hemoglobin 11.7 g/dl (14.0-18.0); Imm Gran Abs Auto 0.03 X10*3/uL (0.00-0.03); Imm Gran Pct Auto 0.5 % (0.0-0.4); Lymphocytes Absolute Auto 1.2 X10*3/uL (1.2-4.9); Lymphocytes Percent Auto 19.2 % (20-40); Mean Corpuscular HGB Conc 31.5 g/dl (31.0-36.0); Mean Corpuscular Hemoglobin 29.2 pg (27.0-33.0); Mean Corpuscular Volume 92.8 fL (80.0-98.0); Mean Platelet Volume 8.6 fL (9.4-12.4); Monocytes Absolute Auto 0.5 X10*3/uL (0.1-1.2); Monocytes Percent Auto 7.3 % (2-11); Neutrophils Absolute Auto 4.5 x10*3/uL (2.0-8.3); Neutrophils Percent Auto 71.3 % (45-73); Platelet Count 262 X10*3/uL (160-400); Red Blood Count 4.01 X10*6/uL (4.60-5.80); Red Cell Distribution Width 13.9 % (11.0-16.0); White Blood Count 6.3 X10*3/uL (4.8-10.8)
[2021-08-17 08:29] LABS: Estimated Average Glucose 166 mg/dL; Hemoglobin A1c % 7.4 %
[2021-08-17 08:47] LABS: Alanine Aminotransferase 29 U/L (0-40); Albumin Level 4.4 g/dL (3.5-5.0); Alkaline Phosphatase 201 U/L (39-117); Anion Gap 11 (12-20); Aspartate Amino Transferase 20 U/L (5-37); Bilirubin Total 0.2 mg/dL (0.0-1.0); Blood Urea Nitrogen 27 mg/dL (9-16); Calcium 9.3 mg/dL (8.4-10.2); Carbon Dioxide 22 mmol/L (22-29); Chloride 113 mmol/L (96-108); Cholesterol 137 mg/dL; Estimated Glomerular Filt Rate 31; Glucose Fasting 228 mg/dL (60-99); HDL Cholesterol 37 mg/dL; LDL Cholesterol Calculated 64 mg/dl; Potassium 5.5 mmol/L (3.3-5.1); Sodium 140 mmol/L (135-145); Total Protein 7.2 g/dL (6.5-8.0); Triglycerides 182 mg/dL
[2021-08-17 09:08] LABS: Thyroid Stimulating Hormone 0.49 uIU/mL (0.32-4.0); Vitamin D 25-OH Total 29.9 ng/mL (>30)
== END 2021-08-17 07:48 | disposition home or self-care (01) ==
LOC: HO.LAB 07:47
PROVIDERS: PCP Internal Medicine; Visit Provider Internal Medicine
DX: E11.9 Type 2 diabetes mellitus without complications (principal); E03.9 Hypothyroidism, unspecified; E78.00 Pure hypercholesterolemia, unspecified; E55.9 Vitamin D deficiency, unspecified; I10 Essential (primary) hypertension
CPT/HCPCS: 36415; 80053; 80061; 82306; 83036; 84443; 85025

== ENCOUNTER → 2021-09-06 12:49 | Outpatient (BNVA) | payer OTHER, SELFPAY | PROVIDERS: PCP Internal Medicine; Visit Provider Nurse Practitioner Gerontology | DX: E11.65 Type 2 diabetes mellitus with hyperglycemia (principal); E11.22 Type 2 diabetes mellitus with diabetic chronic kidney disease; I12.9 Hypertensive chronic kidney disease with stage 1 through stage 4 chronic kidney disease, or unspecified chronic kidney disease; N18.30 Chronic kidney disease, stage 3 unspecified; E78.00 Pure hypercholesterolemia, unspecified; E66.9 Obesity, unspecified; Z79.4 Long term (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; Z68.31 Body mass index [BMI] 31.0-31.9, adult | CPT/HCPCS: 82947; 99212 ==

== ENCOUNTER 2021-09-18 13:17 | Outpatient (REF) | payer OTHER, SELFPAY ==
[2021-09-18 13:26] LABS: MANUAL DIFF FLAG NO
--- NOTE | 2021-09-18 13:27 | ECG_ITS ---
Test Reason : abn ekg Blood Pressure : / mmHG Vent. Rate : 066 BPM Atrial Rate : 066 BPM P-R Int : 160 ms QRS Dur : 098 ms QT Int : 410 ms P-R-T Axes : 018 -32 063 degrees QTc Int : 429 ms Normal sinus rhythm Left axis deviation Abnormal ECG When compared with ECG of 31-JUL-2020 11:03, QT has shortened Referred By: Zeb Ca Electronically Signed By:CHEYENNE ACOSTA MD
[2021-09-18 13:54] LABS: Basophils Percent Auto 0.5 % (0-2); Eosinophils Absolute Auto 0.1 X10*3/uL (0.0-0.4); Eosinophils Percent Auto 1.3 % (0-4); Hematocrit 39.7 % (42.0-52.0); Hemoglobin 12.4 g/dl (14.0-18.0); Imm Gran Abs Auto 0.04 X10*3/uL (0.00-0.03); Imm Gran Pct Auto 0.5 % (0.0-0.4); Lymphocytes Absolute Auto 2.2 X10*3/uL (1.2-4.9); Lymphocytes Percent Auto 26.4 % (20-40); Mean Corpuscular HGB Conc 31.2 g/dl (31.0-36.0); Mean Corpuscular Hemoglobin 28.9 pg (27.0-33.0); Mean Corpuscular Volume 92.5 fL (80.0-98.0); Mean Platelet Volume 8.7 fL (9.4-12.4); Monocytes Absolute Auto 0.5 X10*3/uL (0.1-1.2); Monocytes Percent Auto 6.4 % (2-11); Neutrophils Absolute Auto 5.5 x10*3/uL (2.0-8.3); Neutrophils Percent Auto 64.9 % (45-73); Platelet Count 272 X10*3/uL (160-400); Red Blood Count 4.29 X10*6/uL (4.60-5.80); Red Cell Distribution Width 13.2 % (11.0-16.0); White Blood Count 8.5 X10*3/uL (4.8-10.8)
[2021-09-18 14:24] LABS: Alanine Aminotransferase 31 U/L (0-40); Albumin Level 4.5 g/dL (3.5-5.0); Alkaline Phosphatase 202 U/L (39-117); Anion Gap 13 (12-20); Aspartate Amino Transferase 22 U/L (5-37); Bilirubin Total 0.2 mg/dL (0.0-1.0); Blood Urea Nitrogen 29 mg/dL (9-16); Calcium 9.8 mg/dL (8.4-10.2); Carbon Dioxide 24 mmol/L (22-29); Chloride 108 mmol/L (96-108); Estimated Glomerular Filt Rate 30; Glucose Random 127 mg/dL (60-115); Sodium 140 mmol/L (135-145); Total Protein 7.5 g/dL (6.5-8.0)
== END 2021-09-18 13:18 | disposition home or self-care (01) ==
LOC: HO.LAB 13:17
PROVIDERS: PCP Internal Medicine; Visit Provider Internal Medicine
DX: E87.5 Hyperkalemia (principal); I12.9 Hypertensive chronic kidney disease with stage 1 through stage 4 chronic kidney disease, or unspecified chronic kidney disease; N18.30 Chronic kidney disease, stage 3 unspecified; R94.31 Abnormal electrocardiogram [ECG] [EKG]
CPT/HCPCS: 36415; 80053; 83735; 85025; 93005

== ENCOUNTER → 2021-10-09 13:56 | Outpatient (BNVA) | payer OTHER, SELFPAY | PROVIDERS: PCP Internal Medicine; Visit Provider Dietitian, Registered | DX: E11.9 Type 2 diabetes mellitus without complications (principal); Z79.84 Long term (current) use of oral hypoglycemic drugs | CPT/HCPCS: 97803 ==

== ENCOUNTER 2021-10-16 10:24 | Outpatient (REF) | payer OTHER, SELFPAY ==
[2021-10-16 10:41] LABS: MANUAL DIFF FLAG NO
[2021-10-16 10:49] LABS: Basophils Percent Auto 0.3 % (0-2); Eosinophils Absolute Auto 0.1 X10*3/uL (0.0-0.4); Eosinophils Percent Auto 0.8 % (0-4); Hematocrit 35.7 % (42.0-52.0); Hemoglobin 11.4 g/dl (14.0-18.0); Imm Gran Abs Auto 0.09 X10*3/uL (0.00-0.03); Lymphocytes Percent Auto 20.8 % (20-40); Mean Corpuscular HGB Conc 31.9 g/dl (31.0-36.0); Mean Corpuscular Hemoglobin 29.4 pg (27.0-33.0); Mean Platelet Volume 8.8 fL (9.4-12.4); Monocytes Absolute Auto 0.6 X10*3/uL (0.1-1.2); Monocytes Percent Auto 6.6 % (2-11); Neutrophils Absolute Auto 6.7 x10*3/uL (2.0-8.3); Neutrophils Percent Auto 70.5 % (45-73); Platelet Count 219 X10*3/uL (160-400); Red Blood Count 3.88 X10*6/uL (4.60-5.80); Red Cell Distribution Width 13.5 % (11.0-16.0); White Blood Count 9.4 X10*3/uL (4.8-10.8)
[2021-10-16 11:06] LABS: Estimated Average Glucose 157 mg/dL; Hemoglobin A1c % 7.1 %
[2021-10-16 11:25] LABS: Alanine Aminotransferase 38 U/L (0-40); Albumin Level 4.1 g/dL (3.5-5.0); Alkaline Phosphatase 172 U/L (39-117); Anion Gap 14 (12-20); Aspartate Amino Transferase 18 U/L (5-37); Bilirubin Total 0.2 mg/dL (0.0-1.0); Blood Urea Nitrogen 26 mg/dL (9-16); Calcium 8.7 mg/dL (8.4-10.2); Carbon Dioxide 22 mmol/L (22-29); Chloride 107 mmol/L (96-108); Cholesterol 133 mg/dL; Estimated Glomerular Filt Rate 27; Glucose Fasting 140 mg/dL (60-99); HDL Cholesterol 39 mg/dL; LDL Cholesterol Calculated 69 mg/dl; Potassium 4.5 mmol/L (3.3-5.1); Sodium 138 mmol/L (135-145); Total Protein 6.9 g/dL (6.5-8.0); Triglycerides 128 mg/dL
[2021-10-16 12:39] LABS: Creatinine Urine 76.65 mg/dL; Microalbum/Creatinine Ratio Ur 97.8 ug/mg cr
== END 2021-10-16 10:25 | disposition home or self-care (01) ==
LOC: HO.LAB 10:24
PROVIDERS: PCP Internal Medicine; Visit Provider Nurse Practitioner Acute Care
DX: E11.22 Type 2 diabetes mellitus with diabetic chronic kidney disease (principal)
CPT/HCPCS: 36415; 80053; 80061; 82043; 83036; 85025

== ENCOUNTER 2021-12-03 13:55 | Outpatient (REF) | payer OTHER, SELFPAY ==
[2021-12-03 15:05] LABS: Creatinine Urine 116.32 mg/dL; Microalbum/Creatinine Ratio Ur 183.9 ug/mg cr
[2021-12-03 15:06] LABS: Blood Urea Nitrogen 23 mg/dL (9-16); Estimated Glomerular Filt Rate 32
== END 2021-12-03 13:56 | disposition home or self-care (01) ==
LOC: HO.LAB 13:55
PROVIDERS: Nurse Practitioner Gerontology; PCP Internal Medicine; Visit Provider Internal Medicine
DX: R26.9 Unspecified abnormalities of gait and mobility (principal); E11.65 Type 2 diabetes mellitus with hyperglycemia; Z79.4 Long term (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
CPT/HCPCS: 36415; 82043; 82565; 84520

== ENCOUNTER 2021-12-24 12:28 | Outpatient (REF) | payer OTHER, SELFPAY ==
--- NOTE | ~2021-12-24 | MR_ITS ---
EXAMINATION: MR BRAIN WITHOUT CONTRAST CLINICAL INFORMATION: 51-year-old with unspecified abnormalities of gait and mobility. COMPARISON: 02/13/2016 MRI. TECHNIQUE: Multiplanar multisequence MR imaging of the brain was done. FINDINGS: Brain Volume: Overall, brain volume is unchanged when compared to the previous study with focally disproportionate brain parenchymal volume loss involving the anteroinferior frontal lobes, right more than left and just above the cribriform plate, similar in appearance to the previous exam. Structural: Partially empty sella, unchanged in appearance, anatomic variant. Brain and Meninges: DWI sequence demonstrates no restricted diffusion to suggest acute or subacute cerebral ischemia. Focal anterior inferior parasagittal encephalomalacia, right more than left, stable from previous exam consistent with remote trauma. A few punctate white matter T2 hyperintensities noted in the subcortical left frontal white matter near the frontal convexity are new since the previous exam and are nonspecific but could reflect tiny zones of chronic ischemic microangiopathy. Gradient refocused imaging demonstrates no evidence for hemorrhage, hemosiderin staining or abnormal mineral deposition within the limitations of the study (motion artifact). No extra-axial fluid collections, significant space-occupying process or mass effect are identified. Ventricles and Subarachnoid Spaces: The ventricular system and subarachnoid spaces are stable in appearance without hydrocephalus. 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 Orbital Structures: Limited assessment due to motion artifact. Vascular: Signal voids are noted in the visualized major intracranial vessels. Osseous Structures, Sinuses/Mastoids, Extracranial Soft Tissues: Limited assessment due to motion artifact. Minor mucosal thickening in the ethmoid complex with nasal septal deviation to the left and probable retention cysts in the left maxillary sinus. MR/MR head/brain wo con IMPRESSION: 1. Some limitations related to motion artifact. 2. No acute intracranial process. 3. No change in findings of encephalomalacia along the inferior frontal lobes bilaterally, right more than left suggesting remote trauma. A few new punctate left frontal subcortical white matter T2 hyperintensities are seen on the current exam which are nonspecific. 4. No hydrocephalus. 5. Paranasal sinus inflammatory changes on current study.
== END 2021-12-24 12:29 | disposition home or self-care (01) ==
LOC: HO.MRI 12:28
PROVIDERS: Visit Provider Internal Medicine
DX: R26.9 Unspecified abnormalities of gait and mobility (principal); R26.2 Difficulty in walking, not elsewhere classified
CPT/HCPCS: 70551

== ENCOUNTER 2022-01-10 10:33 | Outpatient (REF) | payer OTHER, SELFPAY ==
[2022-01-10 10:47] LABS: MANUAL DIFF FLAG NO
[2022-01-10 11:17] LABS: Basophils Percent Auto 0.2 % (0-2); Eosinophils Absolute Auto 0.1 X10*3/uL (0.0-0.4); Eosinophils Percent Auto 0.9 % (0-4); Hematocrit 40.3 % (42.0-52.0); Hemoglobin 12.5 g/dl (14.0-18.0); Imm Gran Abs Auto 0.03 X10*3/uL (0.00-0.03); Imm Gran Pct Auto 0.4 % (0.0-0.4); Lymphocytes Absolute Auto 1.6 X10*3/uL (1.2-4.9); Lymphocytes Percent Auto 18.8 % (20-40); Mean Corpuscular Hemoglobin 28.9 pg (27.0-33.0); Mean Corpuscular Volume 93.1 fL (80.0-98.0); Mean Platelet Volume 9.1 fL (9.4-12.4); Monocytes Absolute Auto 0.7 X10*3/uL (0.1-1.2); Monocytes Percent Auto 8.1 % (2-11); Neutrophils Absolute Auto 5.9 x10*3/uL (2.0-8.3); Neutrophils Percent Auto 71.6 % (45-73); Platelet Count 259 X10*3/uL (160-400); Red Blood Count 4.33 X10*6/uL (4.60-5.80); Red Cell Distribution Width 14.1 % (11.0-16.0); White Blood Count 8.2 X10*3/uL (4.8-10.8)
[2022-01-10 11:54] LABS: Appearance Urine CLEAR; Color Urine YELLOW; Glucose Urine UA NEG (NEG); Leukocyte Esterase Urine NEG (NEG); Nitrite Urine NEG (NEG); Specific Gravity - Urine 1.015 (1.005-1.025); Urine Blood NEG (NEG); Urine Ketones NEG (NEG); Urine Protein NEG (NEG-TRACE)
[2022-01-10 11:55] LABS: Alanine Aminotransferase 27 U/L (0-40); Albumin Level 4.5 g/dL (3.5-5.0); Alkaline Phosphatase 186 U/L (39-117); Anion Gap 12 (12-20); Aspartate Amino Transferase 21 U/L (5-37); Bilirubin Total 0.3 mg/dL (0.0-1.0); Blood Urea Nitrogen 28 mg/dL (9-16); Calcium 9.3 mg/dL (8.4-10.2); Carbon Dioxide 23 mmol/L (22-29); Chloride 111 mmol/L (96-108); Cholesterol 124 mg/dL; Estimated Glomerular Filt Rate 32; Glucose Fasting 92 mg/dL (60-99); HDL Cholesterol 36 mg/dL; LDL Cholesterol Calculated 71 mg/dl; Potassium 5.4 mmol/L (3.3-5.1); Sodium 141 mmol/L (135-145); Total Protein 7.1 g/dL (6.5-8.0); Triglycerides 89 mg/dL
[2022-01-10 12:16] LABS: Free T4 (Free Thyroxine) 0.96 ng/dL (0.71-1.85); Thyroid Stimulating Hormone 0.45 uIU/mL (0.32-4.0); Vitamin D 25-OH Total 34.6 ng/mL (>30)
[2022-01-10 12:22] LABS: Creatinine Urine 78.11 mg/dL; Microalbum/Creatinine Ratio Ur 43.5 ug/mg cr
== END 2022-01-10 10:34 | disposition home or self-care (01) ==
LOC: HO.LAB 10:33
PROVIDERS: PCP Internal Medicine; Visit Provider Internal Medicine
DX: E03.9 Hypothyroidism, unspecified (principal); E11.9 Type 2 diabetes mellitus without complications; E78.00 Pure hypercholesterolemia, unspecified; E55.9 Vitamin D deficiency, unspecified; I10 Essential (primary) hypertension
CPT/HCPCS: 36415; 80053; 80061; 81003; 82043; 82306; 84439; 84443; 85025

== ENCOUNTER → 2022-01-18 12:06 | Outpatient (BNVA) | payer OTHER, SELFPAY | PROVIDERS: PCP Internal Medicine; Visit Provider Dietitian, Registered | DX: E11.65 Type 2 diabetes mellitus with hyperglycemia (principal); Z79.4 Long term (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; Z71.3 Dietary counseling and surveillance | CPT/HCPCS: 97803 ==

== ENCOUNTER → 2022-03-13 14:34 | Outpatient (BNVA) | payer OTHER, SELFPAY | PROVIDERS: PCP Internal Medicine; Referring Provider Internal Medicine; Visit Provider Nurse Practitioner | DX: K21.9 Gastro-esophageal reflux disease without esophagitis (principal); K58.2 Mixed irritable bowel syndrome; N18.4 Chronic kidney disease, stage 4 (severe) | CPT/HCPCS: 99212 ==

== ENCOUNTER 2022-04-30 07:42 | Outpatient (REF) | payer OTHER, SELFPAY ==
[2022-04-30 07:56] LABS: MANUAL DIFF FLAG NO
[2022-04-30 07:59] LABS: Basophils Percent Auto 0.4 % (0-2); Eosinophils Absolute Auto 0.1 X10*3/uL (0.0-0.4); Eosinophils Percent Auto 0.8 % (0-4); Hematocrit 38.9 % (42.0-52.0); Hemoglobin 12.5 g/dl (14.0-18.0); Imm Gran Abs Auto 0.05 X10*3/uL (0.00-0.03); Imm Gran Pct Auto 0.5 % (0.0-0.4); Lymphocytes Absolute Auto 1.5 X10*3/uL (1.2-4.9); Lymphocytes Percent Auto 15.5 % (20-40); Mean Corpuscular HGB Conc 32.1 g/dl (31.0-36.0); Mean Corpuscular Hemoglobin 30.3 pg (27.0-33.0); Mean Corpuscular Volume 94.2 fL (80.0-98.0); Mean Platelet Volume 9.1 fL (9.4-12.4); Monocytes Absolute Auto 0.6 X10*3/uL (0.1-1.2); Monocytes Percent Auto 6.4 % (2-11); Neutrophils Absolute Auto 7.3 x10*3/uL (2.0-8.3); Neutrophils Percent Auto 76.4 % (45-73); Platelet Count 219 X10*3/uL (160-400); Red Blood Count 4.13 X10*6/uL (4.60-5.80); Red Cell Distribution Width 12.7 % (11.0-16.0); White Blood Count 9.5 X10*3/uL (4.8-10.8)
[2022-04-30 08:15] LABS: Estimated Average Glucose 105 mg/dL; Hemoglobin A1c % 5.3 %
[2022-04-30 08:28] LABS: Alanine Aminotransferase 36 U/L (0-40); Albumin Level 4.6 g/dL (3.5-5.0); Alkaline Phosphatase 233 U/L (39-117); Anion Gap 15 (12-20); Aspartate Amino Transferase 22 U/L (5-37); Bilirubin Total 0.2 mg/dL (0.0-1.0); Blood Urea Nitrogen 29 mg/dL (9-16); Calcium 9.2 mg/dL (8.4-10.2); Carbon Dioxide 23 mmol/L (22-29); Chloride 111 mmol/L (96-108); Cholesterol 110 mg/dL; Estimated Glomerular Filt Rate 30; Glucose Fasting 106 mg/dL (60-99); HDL Cholesterol 33 mg/dL; LDL Cholesterol Calculated 59 mg/dl; Potassium 5.6 mmol/L (3.3-5.1); Sodium 143 mmol/L (135-145); Total Protein 7.1 g/dL (6.5-8.0); Triglycerides 91 mg/dL
[2022-04-30 08:48] LABS: Free T4 (Free Thyroxine) 1.03 ng/dL (0.71-1.85); Thyroid Stimulating Hormone 0.09 uIU/mL (0.32-4.0); Vitamin D 25-OH Total 36.2 ng/mL (>30)
[2022-04-30 08:52] LABS: Appearance Urine Clear; Color Urine Yellow; Glucose Urine UA Negative (Negative); Leukocyte Esterase Urine Trace (Negative); Nitrite Urine Negative (Negative); PH 6.5 (5.0-9.0); UMIC TRIGGER UACC YES; Urine Blood Negative (Negative); Urine Ketones Negative (Negative); Urine Protein Negative (Neg-Trace)
[2022-04-30 08:57] LABS: Bacteria Urine None Seen (None Seen); Hyaline Casts Urine 0-2 /LPF (0-2); RBC Urine 0-2 /HPF (0-2); Squamous Epithelial Cell Urine 0-2 /HPF (0-2); WBC Urine 0-5 /HPF (0-5)
[2022-04-30 09:23] LABS: Creatinine Urine 64.53 mg/dL; Microalbum/Creatinine Ratio Ur 75.9 ug/mg cr
[2022-04-30 16:17] LABS: Folate 8.9 ng/mL (> or = 4.0); Vitamin B12 422 pg/mL (200-900)
[2022-05-04 14:27] LABS: Zonisamide Zonegran 10.7 mcg/mL (10.0-40.0)
== END 2022-04-30 07:43 | disposition home or self-care (01) ==
LOC: HO.LAB 07:42
PROVIDERS: PCP Internal Medicine; Visit Provider Internal Medicine
DX: I12.9 Hypertensive chronic kidney disease with stage 1 through stage 4 chronic kidney disease, or unspecified chronic kidney disease (principal); E11.22 Type 2 diabetes mellitus with diabetic chronic kidney disease; N18.9 Chronic kidney disease, unspecified; E78.00 Pure hypercholesterolemia, unspecified; E03.9 Hypothyroidism, unspecified; E55.9 Vitamin D deficiency, unspecified; G40.909 Epilepsy, unspecified, not intractable, without status epilepticus; E53.8 Deficiency of other specified B group vitamins; K58.2 Mixed irritable bowel syndrome; R26.2 Difficulty in walking, not elsewhere classified; Z79.899 Other long term (current) drug therapy
CPT/HCPCS: 36415; 80053; 80061; 80203; 81001; 82043; 82306; 82607; 82746; 83036; 84425; 84439; 84443; 85025

== ENCOUNTER 2022-06-07 07:44 | Outpatient (REF) | payer OTHER, SELFPAY | END 2022-06-07 07:45 | disposition home or self-care (01) | LOC: HO.HOSX 07:44 | PROVIDERS: Visit Provider Physician Assistant | DX: Z13.89 Encounter for screening for other disorder (principal) ==

== ENCOUNTER 2022-07-08 14:05 | Outpatient (REF) | payer OTHER, SELFPAY ==
[2022-07-08 14:19] LABS: MANUAL DIFF FLAG NO
[2022-07-08 15:17] LABS: Basophils Percent Auto 0.5 % (0-2); Eosinophils Absolute Auto 0.1 X10*3/uL (0.0-0.4); Eosinophils Percent Auto 1.7 % (0-4); Hematocrit 36.2 % (42.0-52.0); Hemoglobin 11.6 g/dl (14.0-18.0); Imm Gran Abs Auto 0.04 X10*3/uL (0.00-0.03); Imm Gran Pct Auto 0.5 % (0.0-0.4); Lymphocytes Absolute Auto 2.5 X10*3/uL (1.2-4.9); Lymphocytes Percent Auto 33.4 % (20-40); Mean Corpuscular Hemoglobin 30.1 pg (27.0-33.0); Mean Platelet Volume 9.5 fL (9.4-12.4); Monocytes Absolute Auto 0.5 X10*3/uL (0.1-1.2); Monocytes Percent Auto 6.9 % (2-11); Neutrophils Absolute Auto 4.3 x10*3/uL (2.0-8.3); Platelet Count 237 X10*3/uL (160-400); Red Blood Count 3.85 X10*6/uL (4.60-5.80); Red Cell Distribution Width 13.2 % (11.0-16.0); White Blood Count 7.5 X10*3/uL (4.8-10.8)
[2022-07-08 15:49] LABS: Appearance Urine Clear; Color Urine Yellow; Glucose Urine UA Negative (Negative); Leukocyte Esterase Urine Negative (Negative); Nitrite Urine Negative (Negative); Specific Gravity - Urine 1.015 (1.005-1.025); Urine Blood Negative (Negative); Urine Ketones Negative (Negative); Urine Protein Negative (Neg-Trace)
[2022-07-08 15:55] LABS: Bacteria Urine None Seen (None Seen); Hyaline Casts Urine 0-2 /LPF (0-2); RBC Urine 0-2 /HPF (0-2); Squamous Epithelial Cell Urine 0-2 /HPF (0-2); WBC Urine 0-5 /HPF (0-5)
[2022-07-08 16:03] LABS: Albumin Level 4.2 g/dL (3.5-5.0); Anion Gap 11 (12-20); Blood Urea Nitrogen 35 mg/dL (9-16); Calcium 8.6 mg/dL (8.4-10.2); Carbon Dioxide 25 mmol/L (22-29); Chloride 113 mmol/L (96-108); Estimated Glomerular Filt Rate 27; Magnesium 2.2 mg/dL (1.6-2.6); Phosphorus 3.5 mg/dL (2.7-4.5); Potassium 4.8 mmol/L (3.3-5.1); Sodium 144 mmol/L (135-145); Vitamin D 25-OH Total 33.6 ng/mL (>30)
[2022-07-08 16:11] LABS: Creatinine Urine 66.41 mg/dL; Microalbum/Creatinine Ratio Ur 72.2 ug/mg cr; Protein/Creatinine Ratio, Ur 0.14 (<0.2); Total Protein Urine Random 9 mg/dL (<12)
[2022-07-09 09:48] LABS: Calcium (PTHI) 8.8 mg/dL (8.6-10.3); PTHI 169 pg/mL (16-77)
== END 2022-07-08 14:06 | disposition home or self-care (01) ==
LOC: HO.LAB 14:05
PROVIDERS: PCP Internal Medicine; Visit Provider Internal Medicine Nephrology
DX: N18.4 Chronic kidney disease, stage 4 (severe) (principal); E11.21 Type 2 diabetes mellitus with diabetic nephropathy; N25.0 Renal osteodystrophy; R82.71 Bacteriuria
CPT/HCPCS: 36415; 80051; 81001; 82040; 82043; 82306; 82310; 82565; 83735; 83970; 84100; 84156; 84520; 85025; 87086; 87088; 87186

== ENCOUNTER 2022-07-11 | Outpatient (REF) | payer OTHER, SELFPAY ==
--- NOTE | ~2022-07-11 | XR_ITS ---
EXAMINATION: XR ELBOW, LEFT CLINICAL INFORMATION: Left elbow pain. COMPARISON: None TECHNIQUE: AP, lateral, and oblique views of the left elbow. FINDINGS: There is moderate soft tissue swelling of the posterior left elbow likely olecranon bursitis. There are posterior olecranon plate and screws from an old healed fracture. The fracture fragments are in alignment. No hardware abnormality seen No joint effusion seen. XR/XR elbow LT min 3V IMPRESSION: 1. Moderate soft tissue swelling posterior left elbow, likely olecranon bursitis. 2. There is no visible acute fracture or dislocation. There are posterior olecranon plate and screws from an old healed fracture.
== END 2022-07-11 00:01 ==
LOC: HO.HOSX
PROVIDERS: Visit Provider Physician Assistant
DX: M25.522 Pain in left elbow (principal); M70.22 Olecranon bursitis, left elbow
CPT/HCPCS: 73080; 99202; 99212

== ENCOUNTER → 2022-07-19 12:40 | Outpatient (BNVA) | payer OTHER, SELFPAY | PROVIDERS: PCP Internal Medicine; Visit Provider Dietitian, Registered | DX: E11.65 Type 2 diabetes mellitus with hyperglycemia (principal); Z79.4 Long term (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; Z71.3 Dietary counseling and surveillance | CPT/HCPCS: 97803 ==

== ENCOUNTER → 2022-10-16 14:14 | Outpatient (BNVA) | payer OTHER, SELFPAY | PROVIDERS: PCP Internal Medicine; Visit Provider Nurse Practitioner | DX: K21.9 Gastro-esophageal reflux disease without esophagitis (principal); K58.2 Mixed irritable bowel syndrome | CPT/HCPCS: 99212 ==

== ENCOUNTER 2022-11-12 14:20 | Outpatient (AMB) | payer OTHER, SELFPAY ==
[2022-11-12 14:44] VITALS: BP 102/68; PULSE 58; O2SAT 99; BMI 28.3
--- NOTE | 2022-11-12 14:44 | A.OFFPC_ITS ---
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 Health Required: No Allergies No Known Allergies Allergy (Unknown, Verified 04/10/23 13:35) U Medication List - Last Reconciled 11/12/22 by Zeb Ca MD albuterol sulfate 90 mcg/actuation (ProAir HFA) 2 puffs inhalation Q6H PRN aripiprazole 5 mg PO DAILY atorvastatin 10 mg PO BEDTIME blood sugar diagnostic (FreeStyle Lite Strips) 1 strip miscellaneous BID calcium polycarbophil (Fiber Laxative (calcium polycarbophil)) 625 mg PO BID PRN dapagliflozin (Farxiga) 10 mg PO DAILY dulaglutide (Trulicity) 1.5 mg (0.5 mL) subcut QWEEK 28 days ergocalciferol (vitamin D2) 1,250 mcg PO QWEEK fluticasone propionate 220 mcg/actuation (Flovent HFA) 1 puff PO BID insulin glargine (Lantus Solostar U-100 Insulin) 8 units (0.08 mL) subcut QPM 90 days lamotrigine 200 mg PO BID lancets (FreeStyle Lancets) 28 gauge topical DAILY levothyroxine 125 mcg PO DAILY lisinopril 2.5 mg PO BID lorazepam 0.5 mg PO TID PRN melatonin 5 mg PO BEDTIME olanzapine 5 mg PO BEDTIME omega 1-xtc-zkv-fish oil 1,200 (144-216) mg (Fish Oil) 1 cap PO DAILY omeprazole 20 mg PO DAILY 30 days pen needle, diabetic (BD Ultra-Fine Leeanne Pen Needle) 1 ea subcut DAILY pen needle, diabetic As directed polyethylene glycol 3350 (Gavilax) 17 grams PO DAILY sildenafil 50 mg PO DAILY PRN tizanidine 4 mg PO TID PRN trazodone 50 mg PO BEDTIME PRN zonisamide 100 mg PO BID Tobacco use date assessed: 11/12/22 HPI 3mth HPI Details Patient comes in today for his follow-up visit States that he feels okay Denies any headaches or dizziness Denies any chest pains, no shortness of breath No nausea/vomiting, no abdominal pain No change in bowel habits noted States that he was not able to get his follow-up labs done yet but can try to get them done tomorrow morning PFSH Medical History Overweight (BMI 25.0-29.9) Chronic kidney disease, stage 4 (severe) Prolonged QT interval Hyperkalemia Memory impairment Vitamin D deficiency Hypothyroidism Seizures Anxiety Fatty liver IBS (irritable colon syndrome) GERD (gastroesophageal reflux disease) Obesity (BMI 30-39.9) Schizoaffective disorder Asthma Epilepsy Essential hypertension Pure hypercholesterolemia 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 1. Little interest or pleasure in doing things: not at all 2. Feeling down, depressed, or hopeless: not at all 3. Trouble falling or staying asleep, or sleeping too much: not at all 4. Feeling tired or having little energy: not at all 5. Poor appetite or overeating: not at all 6. Feeling bad about yourself - or that you are a failure or have let yourself or your family down: not at all 7. Trouble concentrating on things, such as reading the newspaper or watching television: not at all 8. Moving or speaking so slowly that other people could have noticed. Or the opposite - being so fidgety or restless that you have been moving around a lot more than usual: not at all 9. Thoughts that you would be better off or of hurting yourself in some way: not at all Total score: 0 Depression Screening Interpretation: Negative 56447 - PHQ-9 Billing: Yes Source: Developed by Drs. Emiliano Ledezma, Ashly Pat, Rohit Tilley and colleagues, with an educational danette from [email or web address]. Thrive Questionnaire Declines Thrive assessment: No Date Thrive assessed: 11/12/22 I am a: Patient What is your living situation today?: I have a steady place to live Within the past 12 months, did the food you bought not last and you didn't have the money to get more?: Never true Within the past 12 months, did you worry whether your food would run out before you got money to buy more?: Never true Do you have trouble getting transportation to medical appointments?: No Do you have trouble paying your heating and electricity bill?: No Do you have trouble taking care of your child, family member or friend?: No Do you have trouble with day-to-day activities such as bathing, preparing meals, shopping, managing finances, etc.?: No Are you currently unemployed and looking for a job?: No Are you interested in more education?: No Currently or been in a relationship where the following occur: no concerns reported AUDIT C Alcohol Use Questionnaire (AUDIT-C) 1. How often do you have a drink containing alcohol?: Never 3. How often do you have six or more drinks on one occasion?: Never Total Score: 0 Score Reviewed/Action Taken: Yes ELEUTERIO-7 AMB Questionnaire ELEUTERIO-7 Date ELEUTERIO - 7 assessed: 11/12/22 Feeling nervous, anxious, or on edge: 0 = Not at all Not being able to stop or control worryin = Not at all Worrying too much about different things: 0 = Not at all Trouble relaxin = Not at all Being so restless that it is hard to sit still: 0 = Not at all Becoming easily annoyed or irritable: 0 = Not at all Feeling afraid as if something awful might happen: 0 = Not at all Total ELEUTERIO-7 score (0-4 normal; 5-9 mild; 10-14 moderate; 15-21 severe): 0 Source: Developed by Drs. Emiliano Ledezma, Ashly Pat, Rohit Tilley and colleagues, with an educational danette from [email or web address]. Review of Systems Const Denies fatigue, Denies fever(s) and Denies headache(s) ENT Denies dysphagia, Denies dizziness, Denies otalgia, Denies headache(s), Denies neck pain, Denies odynophagia and Denies sore throat Card Denies chest pain, Denies palpitations and Denies dyspnea Resp Denies cough, Denies dyspnea and Denies wheezing GI Denies abdominal pain, Denies constipation, Denies dysphagia, Denies heartburn, Denies diarrhea, Denies nausea, Denies odynophagia and Denies vomiting Denies dysuria, Denies nocturia and Denies urinary frequency Musc Reports abnormal gait (unsteady), Denies arthralgias and Denies neck pain Neuro Reports abnormal gait (unsteady), Denies dizziness and Denies headache(s) Endo Denies fatigue and Denies palpitations Aller/Immun Denies wheezing Physical exam (Primary Care) Vital Signs: Last Vital Signs Pulse 58 11/12/22 14:44 BP 102/68 11/12/22 14:44 Pulse Ox 99 11/12/22 14:44 Oxygen Delivery Method Room Air 11/12/22 14:44 BMI result Body Mass Index 28.3 Tobacco/Smoking Status: Tobacco use Status Tobacco use date assessed 11/12/22 11/12/22 14:47 Patient Tobacco Use Status Former Tobacco user 11/12/22 14:47 e-Cigarette/Vaping Use Never Used 11/12/22 14:47 PHQ-9: PHQ-9 Score PHQ-9: Total score 0 02/25/23 15:26 Depression Screening Interpretation: Negative Thrive Assessment: Date of Thrive Assessment Date Thrive assessed 11/12/22 11/12/22 14:47 Currently or been in a relationship where the following occur: no concerns reported Const General: no acute distress and alert HENMT Ears: TM's normal bilaterally and EAC's normal Throat: Yes posterior oropharynx normal and Yes tonsils normal (no TP congestion noted) Neck Neck: Yes no lymphadenopathy and Yes supple Resp Auscultation: clear to auscultation bilaterally, no rales and no wheezes Cardio Rate: regular rate Rhythm: regular rhythm Heart sounds: no murmurs GI Palpation (GI): Soft to palpation and nontender Auscultation: normal bowel sounds Skin Rashes: no rashes Extrem General: Yes no clubbing, cyanosis or edema Results AMB Hemoglobin A1c AMB Hemoglobin A1c 5.4 % Last Edit by GABE Lea on 11/12/22 15:04 Results Reviewed Results Reviewed: Laboratory Last Values Hgb A1c (Clinic) 5.4 % (4.0-6.0) 11/12/22 15:00 Assessment and Plan Assessment & Plan (1) Type 2 diabetes mellitus with diabetic chronic kidney disease: Code(s): E11.22 - Type 2 diabetes mellitus with diabetic chronic kidney disease Qualifiers: Chronic kidney disease stage: stage 3 (moderate) Chronic kidney disease stage 3 subtype: unspecified whether 3a or 3b Diabetes mellitus intermediate insulin use: with intermediate use Qualified Code(s): E11.22 - Type 2 diabetes mellitus with diabetic chronic kidney disease; N18.30 - Chronic kidney disease, stage 3 unspecified; Z79.4 - [facility] (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 Plan: In-office HgbA1c done today is at 5.4% (was at 5.6% a few months ago) - goal is <6.5% Reinforced diabetic diet Continue Lantus 8 units SQ Q HS and Trulicity 1.5 mg SQ once a week; was also started on Farxiga 10 mg QD by nephrology recently but this is more to help stabilize his CKD Follow up with endocrinology as scheduled (2) Chronic kidney disease, stage 4 (severe): Code(s): N18.4 - Chronic kidney disease, stage 4 (severe) Plan: Renal function appears stable currently Was seen by nephrology a couple of weeks ago and started additionally on Farxiga 10 mg QD Continue Lisinopril 2.5 mg QD and emphasized again complete avoidance of all NSAIDs and tight control of his BP and blood sugar Follow up with nephrology as scheduled (3) Vitamin D deficiency: Code(s): E55.9 - Vitamin D deficiency, unspecified Plan: Continue Vitamin D2 26713 units once a week (4) Pure hypercholesterolemia: Code(s): E78.00 - Pure hypercholesterolemia, unspecified Plan: Patient was not able to get his follow up labs done prior to his visit today - states that he can get them done tomorrow morning Reinforced low cholesterol diet Continue Atorvastatin 10 mg QD Will recheck his labs and fasting lipids in 3 months for follow up (5) Essential hypertension: Code(s): I10 - Essential (primary) hypertension Plan: Reinforced low-sodium diet -? goal is systolic BP of at least 120 to 130 mm or less Continue Lisinopril 2.5 mg QD (6) Hypothyroidism: Code(s): E03.9 - Hypothyroidism, unspecified Qualifiers: Hypothyroidism type: acquired Qualified Code(s): E03.9 - Hypothyroidism, unspecified Plan: Continue Levothyroxine 125 mcg QD Will recheck his TFTs in 3 months for follow up (7) Asthma: Code(s): J45.909 - Unspecified asthma, uncomplicated Qualifiers: Asthma complication type: uncomplicated Asthma persistence: intermittent Asthma severity: mild Qualified Code(s): J45.20 - Mild intermittent asthma, uncomplicated Plan: Stable - continue Albuterol HFA 2 puffs 4 times a day as needed Follow up with pulmonary as scheduled (8) GERD (gastroesophageal reflux disease): Code(s): K21.9 - Gastro-esophageal reflux disease without esophagitis Qualifiers: Esophagitis presence: without esophagitis Qualified Code(s): K21.9 - Gastro-esophageal reflux disease without esophagitis Plan: Dietary restrictions reinforced Continue Omeprazole 20 mg QD (9) Epilepsy: Code(s): G40.909 - Epilepsy, unspecified, not intractable, without status epilepticus Qualifiers: Epilepsy type: unspecified Intractability: not intractable Status epilepticus: without status epilepticus Qualified Code(s): G40.909 - Epilepsy, unspecified, not intractable, without status epilepticus Plan: EEG done in the past has showed findings consistent with partial complex seizure Patient states that he has not had any seizures lately Continue Zonisamide 100 mg BID Follow-up with neurology as scheduled (10) Schizoaffective disorder: Code(s): F25.9 - Schizoaffective disorder, unspecified Qualifiers: Schizoaffective disorder type: unspecified Qualified Code(s): F25.9 - Schizoaffective disorder, unspecified Plan: Continue Lamotrigine 200 mg twice a day, Zyprexa 5 mg daily at bedtime and Lorazepam 0.5 mg 3 times a day as needed Follow-up with Psychiatry (Dr. Kolby Leyva) as scheduled (11) Overweight (BMI 25.0-29.9): Code(s): E66.3 - Overweight Plan: Reinforced diet/exercise as tolerated/lose weight Plan Follow up in 3 months Orders: Orders AMB Hemoglobin A1c 11/12/22 E11.22 - Type 2 diabetes mellitus with diabetic chronic kidney disease Complete Blood Count Auto Diff 3 Months I10 - Essential (primary) hypertension Comprehensive [place]. Panel Fast 3 Months E78.00 - Pure hypercholesterolemia, unspecified Lipid Panel 3 Months E78.00 - Pure hypercholesterolemia, unspecified TSH reflex Free T4 3 Months E78.00 - Pure hypercholesterolemia, unspecified UA CC w/rflx Micro + Cult 3 Months R30.0 - Dysuria Vitamin D 25-OH Total 3 Months E55.9 - Vitamin D deficiency, unspecified Microalbumin, Random (w Creat) 3 Months E11.9 - Type 2 diabetes mellitus without complications Hemoglobin A1c 3 Months E11.9 - Type 2 diabetes mellitus without complications Coding Level of Care Code Est Pt Level 4 (08185) Diagnoses Type 2 diabetes mellitus with stage 3 chronic kidney disease, with long-term current use of insulin, unspecified whether stage 3a or 3b CKD E11.22; N18.30; Z79.4 Chronic kidney disease stage: stage 3 (moderate) Chronic kidney disease stage 3 subtype: unspecified whether 3a or 3b Diabetes mellitus intermediate insulin use: with 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 Chronic kidney disease, stage 4 (severe) N18.4 Vitamin D deficiency E55.9 Pure hypercholesterolemia E78.00 Essential hypertension I10 Acquired hypothyroidism E03.9 Hypothyroidism type: acquired Mild intermittent asthma without complication J45.20 Asthma complication type: uncomplicated Asthma persistence: intermittent Asthma severity: mild Gastroesophageal reflux disease without esophagitis K21.9 Esophagitis presence: without esophagitis Nonintractable epilepsy without status epilepticus, unspecified epilepsy type G40.909 Epilepsy type: unspecified Intractability: not intractable Status epilepticus: without status epilepticus Schizoaffective disorder, unspecified type F25.9 Schizoaffective disorder type: unspecified Overweight (BMI 25.0-29.9) E66.3
== END 2022-11-12 15:42 | disposition home or self-care (01) ==
LOC: HO.HMGH 14:20
PROVIDERS: PCP Internal Medicine; Visit Provider Internal Medicine
DX: E11.22 Type 2 diabetes mellitus with diabetic chronic kidney disease (principal); I12.9 Hypertensive chronic kidney disease with stage 1 through stage 4 chronic kidney disease, or unspecified chronic kidney disease; N18.4 Chronic kidney disease, stage 4 (severe); Z79.4 Long term (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; E55.9 Vitamin D deficiency, unspecified; E78.00 Pure hypercholesterolemia, unspecified; E03.9 Hypothyroidism, unspecified; J45.20 Mild intermittent asthma, uncomplicated; K21.9 Gastro-esophageal reflux disease without esophagitis; G40.909 Epilepsy, unspecified, not intractable, without status epilepticus; F25.9 Schizoaffective disorder, unspecified; E66.3 Overweight; N18.30 Chronic kidney disease, stage 3 unspecified; I10 Essential (primary) hypertension
CPT/HCPCS: 83036; 99214

== ENCOUNTER 2022-11-13 08:41 | Outpatient (REF) | payer OTHER, SELFPAY ==
[2022-11-13 08:53] LABS: MANUAL DIFF FLAG NO
[2022-11-13 09:05] LABS: Basophils Percent Auto 0.5 % (0-2); Eosinophils Absolute Auto 0.1 X10*3/uL (0.0-0.4); Eosinophils Percent Auto 1.2 % (0-4); Hematocrit 42.5 % (42.0-52.0); Hemoglobin 13.5 g/dl (14.0-18.0); Imm Gran Abs Auto 0.04 X10*3/uL (0.00-0.03); Imm Gran Pct Auto 0.5 % (0.0-0.4); Lymphocytes Absolute Auto 1.7 X10*3/uL (1.2-4.9); Lymphocytes Percent Auto 19.4 % (20-40); Mean Corpuscular HGB Conc 31.8 g/dl (31.0-36.0); Mean Corpuscular Hemoglobin 29.5 pg (27.0-33.0); Mean Corpuscular Volume 92.8 fL (80.0-98.0); Mean Platelet Volume 8.5 fL (9.4-12.4); Monocytes Absolute Auto 0.5 X10*3/uL (0.1-1.2); Monocytes Percent Auto 5.9 % (2-11); Neutrophils Absolute Auto 6.2 x10*3/uL (2.0-8.3); Neutrophils Percent Auto 72.5 % (45-73); Platelet Count 235 X10*3/uL (160-400); Red Blood Count 4.58 X10*6/uL (4.60-5.80); Red Cell Distribution Width 12.7 % (11.0-16.0); White Blood Count 8.5 X10*3/uL (4.8-10.8)
[2022-11-13 09:08] LABS: Estimated Average Glucose 111 mg/dL; Hemoglobin A1c % 5.5 %
[2022-11-13 09:38] LABS: Alanine Aminotransferase 22 U/L (0-40); Albumin Level 4.4 g/dL (3.5-5.0); Alkaline Phosphatase 188 U/L (39-117); Anion Gap 12 (12-20); Aspartate Amino Transferase 21 U/L (5-37); Bilirubin Total 0.6 mg/dL (0.0-1.0); Blood Urea Nitrogen 35 mg/dL (9-16); Calcium 9.1 mg/dL (8.4-10.2); Carbon Dioxide 26 mmol/L (22-29); Chloride 108 mmol/L (96-108); Cholesterol 124 mg/dL; Estimated Glomerular Filt Rate 27; Glucose Fasting 106 mg/dL (60-99); HDL Cholesterol 29 mg/dL; LDL Cholesterol Calculated 64 mg/dl; Potassium 4.8 mmol/L (3.3-5.1); Sodium 141 mmol/L (135-145); Total Protein 6.7 g/dL (6.5-8.0); Triglycerides 155 mg/dL
[2022-11-13 10:07] LABS: Free T4 (Free Thyroxine) 1.02 ng/dL (0.71-1.85); Thyroid Stimulating Hormone 1.07 uIU/mL (0.32-4.0)
[2022-11-13 10:18] LABS: Appearance Urine Clear; Color Urine Yellow; Glucose Urine UA 500 mg/dL (Negative); Leukocyte Esterase Urine Negative (Negative); Nitrite Urine Negative (Negative); PH 7.5 (5.0-9.0); Urine Blood Negative (Negative); Urine Ketones Negative (Negative); Urine Protein Negative (Neg-Trace)
[2022-11-13 10:45] LABS: Creatinine Urine 53.75 mg/dL; Microalbum/Creatinine Ratio Ur 89.3 ug/mg cr
[2022-11-13 11:46] LABS: Vitamin D 25-OH Total 53.1 ng/mL (>30)
== END 2022-11-13 08:42 | disposition home or self-care (01) ==
LOC: HO.LAB 08:41
PROVIDERS: PCP Internal Medicine; Visit Provider Internal Medicine
DX: I10 Essential (primary) hypertension (principal); E78.00 Pure hypercholesterolemia, unspecified; E03.9 Hypothyroidism, unspecified; E11.9 Type 2 diabetes mellitus without complications; R30.0 Dysuria; E55.9 Vitamin D deficiency, unspecified
CPT/HCPCS: 36415; 80053; 80061; 81003; 82043; 82306; 83036; 84439; 84443; 85025

== ENCOUNTER 2022-12-21 15:07 | Emergency (ER) | payer OTHER, SELFPAY ==
--- NOTE | 2022-12-21 15:14 | ECG_ITS ---
Test Reason : CHEST PAIN Blood Pressure : / mmHG Vent. Rate : 062 BPM Atrial Rate : 062 BPM P-R Int : 168 ms QRS Dur : 102 ms QT Int : 406 ms P-R-T Axes : 010 -07 051 degrees QTc Int : 412 ms Normal sinus rhythm Normal ECG When compared with ECG of 18-SEP-2021 13:36, No significant change was found Referred By: Generic ED Physician Electronically Signed By:Barrington Mccullough
[2022-12-21 15:15] VITALS: BP 117/61; BP 117/78; PULSE 61; PULSE 77; RESP 18; TEMP 36.7; O2SAT 100; BMI 12.4
[2022-12-21 15:24] VITALS: BP 117/61; PULSE 77; RESP 18; TEMP 36.7; O2SAT 100
--- NOTE | 2022-12-21 15:30 | PC.NURSE ---
ALert and oriented. states right sided chest pain start this morning before he went to work. States pain with intermittent but once at work lifted some boxes and then chest pain worsened. States pain radiates to right arm when he lifts it. no edema or sob noted. VSS. ekg obatined. States he has had this pain in the past but doesnt know what causes it. Reports pain as a 1/10 at this time.
[2022-12-21 15:33] LABS: MANUAL DIFF FLAG NO
[2022-12-21 15:35] LABS: Basophils Percent Auto 0.3 % (0-2); Eosinophils Absolute Auto 0.1 X10*3/uL (0.0-0.4); Eosinophils Percent Auto 0.9 % (0-4); Hemoglobin 12.2 g/dl (14.0-18.0); Imm Gran Abs Auto 0.03 X10*3/uL (0.00-0.03); Imm Gran Pct Auto 0.3 % (0.0-0.4); Lymphocytes Absolute Auto 2.4 X10*3/uL (1.2-4.9); Lymphocytes Percent Auto 26.8 % (20-40); Mean Corpuscular Hemoglobin 29.6 pg (27.0-33.0); Mean Corpuscular Volume 89.8 fL (80.0-98.0); Mean Platelet Volume 8.6 fL (9.4-12.4); Monocytes Absolute Auto 0.7 X10*3/uL (0.1-1.2); Monocytes Percent Auto 7.2 % (2-11); Neutrophils Absolute Auto 5.8 x10*3/uL (2.0-8.3); Neutrophils Percent Auto 64.5 % (45-73); Platelet Count 208 X10*3/uL (160-400); Red Blood Count 4.12 X10*6/uL (4.60-5.80); Red Cell Distribution Width 12.6 % (11.0-16.0)
[2022-12-21 15:38] LABS: Appearance Urine Clear; Color Urine Yellow; Glucose Urine UA 100 mg/dL (Negative); Leukocyte Esterase Urine Negative (Negative); Nitrite Urine Negative (Negative); Specific Gravity - Urine <= 1.005 (1.005-1.025); Urine Blood Negative (Negative); Urine Ketones Negative (Negative); Urine Protein Negative (Neg-Trace)
[2022-12-21 15:50] LABS: COVID-19 Test Negative (Negative); IDNOW Serial# 08D9AD1C
[2022-12-21 15:52] LABS: Alanine Aminotransferase 29 U/L (0-40); Albumin Level 4.2 g/dL (3.5-5.0); Alkaline Phosphatase 171 U/L (39-117); Anion Gap 10 (12-20); Aspartate Amino Transferase 29 U/L (5-37); Bilirubin Total 0.4 mg/dL (0.0-1.0); Blood Urea Nitrogen 31 mg/dL (9-16); Calcium 8.5 mg/dL (8.4-10.2); Carbon Dioxide 25 mmol/L (22-29); Chloride 100 mmol/L (96-108); Creatinine Clr Calc Pharmacy 44.9; Estimated Glomerular Filt Rate 27; Glucose Random 80 mg/dL (60-115); Magnesium 2.1 mg/dL (1.6-2.6); Potassium 4.3 mmol/L (3.3-5.1); Sodium 131 mmol/L (135-145); Total Protein 6.5 g/dL (6.5-8.0)
[2022-12-21 15:59] LABS: Troponin-I High Sensitivity 16.8 ng/L (<3.5-35.0)
[2022-12-21 16:23] VITALS: BP 119/69; PULSE 55; RESP 18; O2SAT 100
--- NOTE | 2022-12-21 16:27 | PC.NURSE ---
Alert and oriented. states no longer has right sided chest pain but the right side of his back hurts. VSS. no sob. no edema noted.
--- NOTE | 2022-12-21 16:35 | ED.CHESTPAIN ---
HPI - Chest Pain General Chief Complaint: Chest Pain Stated Complaint: CP FROM WORK PER EMS Time Seen by Provider: 12/21/22 16:23 Source: patient Mode of arrival: ambulatory Limitations: no limitations History of Present Illness HPI narrative: Patient is 52 years old with history of hypertension diabetes high cholesterol anxiety and depression and asthma comes in for right-sided chest pain off and on since 08:00 since patient woke up patient comes and goes states for few minutes sharp in character no nausea no vomiting no diaphoresis no shortness of breath does get worse when palpated mostly in the right upper back and get worse by right hand movement. Related Data Home Medications Medication Instructions Recorded Confirmed albuterol sulfate 90 mcg/actuation 2 puff inhalation Q6H PRN Wheezing 05/08/20 11/12/22 aerosol inhaler (ProAir HFA) lamotrigine 200 mg tablet 200 mg PO BID 05/08/20 11/12/22 lorazepam 0.5 mg tablet 0.5 mg PO TID PRN Anxiety 05/08/20 11/12/22 trazodone 50 mg tablet 50 mg PO BEDTIME PRN Insomnia 05/08/20 11/12/22 zonisamide 100 mg capsule 100 mg PO BID 05/08/20 11/12/22 pen needle, diabetic 32 gauge x #50 ea 07/25/20 11/12/22 olanzapine 5 mg tablet 5 mg PO BEDTIME 08/16/21 11/12/22 aripiprazole 5 mg tablet 5 mg PO DAILY 12/03/21 11/12/22 dapagliflozin 10 mg tablet 10 mg PO DAILY 07/30/22 11/12/22 (Farxiga) melatonin 5 mg tablet 5 mg PO BEDTIME 10/16/22 11/12/22 Previous Rx's Medication Instructions Recorded polyethylene glycol 3350 17 17 g PO DAILY #510 grams 08/16/21 gram/dose oral powder (Gavilax) insulin glargine 100 unit/mL (3 8 unit (0.08 mL) subcut QPM 90 01/18/22 mL) subcutaneous pen (Lantus days #12 mL Solostar U-100 Insulin) sildenafil 50 mg tablet 50 mg PO DAILY PRN sexual activity 02/08/22 #5 tabs pen needle, diabetic 32 gauge x 1 ea subcut DAILY #100 ea 03/01/22 (BD Ultra-Fine Leeanne Pen Needle) omega 7-jcs-[id number]-fish oil 1,200 mg 1 cap PO DAILY #90 caps 08/29/22 (144 mg-216 mg) capsule (Fish Oil) fluticasone propionate 220 1 puff PO BID #36 grams 09/13/22 mcg/actuation HFA aerosol inhaler (Flovent HFA) lancets 28 gauge (FreeStyle 28 gauge topical DAILY #100 caps 09/13/22 Lancets) levothyroxine 125 mcg tablet 125 mcg PO DAILY #90 tabs 10/08/22 omeprazole 20 mg capsule,delayed 20 mg PO DAILY 30 days #30 caps 10/16/22 release atorvastatin 10 mg tablet 10 mg PO BEDTIME #90 tabs 10/17/22 lisinopril 2.5 mg tablet 2.5 mg PO BID #90 tabs 10/17/22 calcium polycarbophil 625 mg 625 mg PO BID PRN constipation #60 10/28/22 tablet (Fiber Laxative (calcium tabs polycarbophil)) dulaglutide 1.5 mg/0.5 mL 1.5 mg (0.5 mL) subcut QWEEK 28 11/11/22 subcutaneous pen injector days #2 mL (Trulicity) tizanidine 4 mg tablet 4 mg PO TID PRN for muscle spasm 12/02/22 #90 tabs blood sugar diagnostic (FreeStyle 1 strip miscellaneous BID #100 12/19/22 Lite Strips) strips ergocalciferol (vitamin D2) 1,250 1,250 mcg PO QWEEK #12 caps 12/19/22 mcg (50,000 unit) capsule Allergies Allergy/AdvReac Type Severity Reaction Status Date / Time No Known Allergies Allergy Unknown U Verified 11/12/22 15:37 Review of Systems Review of Systems: Yes all other systems are reviewed and are negative [facility] Past Medical History Medical History Anxiety Asthma Chronic kidney disease, stage 4 (severe) Epilepsy Essential hypertension Fatty liver GERD (gastroesophageal reflux disease) Hyperkalemia Hypothyroidism IBS (irritable colon syndrome) [employer]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 Oriented X3. No acute distress. Eyes: No pallor ENT: Pharynx normal. Oral Mucosa moist Neck: Normal inspection. Neck supple. CVS: Normal heart rate and rhythm. Pulses normal. Respiratory: No respiratory distress. Equal air entry bilateral, no wheezing/rales/rhonchi tenderness right rhomboid Abdomen: Soft and nontender. Bowel sounds are present, no mass palpable, no CVA tenderness Skin: Skin warm and dry. Normal skin color. Normal skin turgor. Extremities: No lower extremity edema. No calf tenderness Neuro: Oriented X 3. No motor deficit. No sensory deficit.No cerebellar signs , cranial nerves II-XII intact Medications Administered Discontinued Medications Generic Name Dose Route Start Last Admin Trade Name Freq PRN Reason Stop Dose Admin Ketorolac Tromethamine 30 mg 12/21/22 16:47 12/21/22 16:52 Ketorolac Tromethamine 30 Mg/Ml Vial IVPUSH 12/21/22 16:48 30 mg ONCE ONE Administration Medical Decision Making Medical Decision Making [facility] Narrative: Patient With 2 sets of troponin negative no acute EKG changes patient symptom free with history of similar pain in the past discharge patient home advised to follow with PCP Lab Data [facility] Lab Attestation statement: I reviewed the patient's lab results. 12/21/22 15:28 12/21/22 15:28 Labs: Lab Results 12/21/22 12/21/22 12/21/22 Range/Units 15:28 15:28 15:28 WBC 9.0 (4.8-10.8) X10*3/uL RBC 4.12 L (4.60-5.80) X10*6/uL Hgb 12.2 L (14.0-18.0) g/dl Hct 37.0 L (42.0-52.0) % MCV 89.8 (80.0-98.0) fL MCH 29.6 (27.0-33.0) pg MCHC 33.0 (31.0-36.0) g/dl RDW 12.6 (11.0-16.0) % Plt Count 208 (160-400) X10*3/uL MPV 8.6 L (9.4-12.4) fL Immature Gran % (Auto) 0.3 (0.0-0.4) % Neut % (Auto) 64.5 (45-73) % Lymph % (Auto) 26.8 (20-40) % [place] % (Auto) 7.2 (2-11) % Eos % (Auto) 0.9 (0-4) % Baso % (Auto) 0.3 (0-2) % Lymph # (Auto) 2.4 (1.2-4.9) X10*3/uL [place] # (Auto) 0.7 (0.1-1.2) X10*3/uL Eos # (Auto) 0.1 (0.0-0.4) X10*3/uL Baso # (Auto) 0.0 (0.0-0.2) X10*3/uL Abs Immat Gran (auto) 0.03 (0.00-0.03) X10*3/uL Absolute Neuts (auto) 5.8 (2.0-8.3) x10*3/uL Absolute Nucleated RBC 0.000 (0.0-0.012) X10*3/uL Nucleated RBC % (auto) 0.0 (0.0-0.2) /100WBC Sodium 131 L (135-145) mmol/L Potassium 4.3 (3.3-5.1) mmol/L Chloride 100 (96-108) mmol/L Carbon Dioxide 25 (22-29) mmol/L Anion Gap 10 L (12-20) BUN 31 H (9-16) mg/dL Creatinine 2.57 H (0.5-1.4) mg/dL Estim Creat Clear Calc 44.9 Estimated GFR 27 Random Glucose 80 (60-115) mg/dL Calcium 8.5 D (8.4-10.2) mg/dL Magnesium 2.1 (1.6-2.6) mg/dL Total Bilirubin 0.4 (0.0-1.0) mg/dL AST 29 (5-37) U/L ALT 29 (0-40) U/L Alkaline Phosphatase 171 H (39-117) U/L Troponin I High Sens (<3.5-35.0) ng/L Total Protein 6.5 (6.5-8.0) g/dL Albumin 4.2 (3.5-5.0) g/dL Urine Color Urine Appearance Urine pH (5.0-9.0) Ur Specific [place] (1.005-1.025) Urine Protein (Neg-Trace) mg/dL Urine Glucose (UA) (Negative) mg/dL Urine Ketones (Negative) mg/dL Urine Blood (Negative) Urine Nitrite (Negative) Ur Leukocyte Esterase (Negative) COVID-19 ([facility]) Negative (Negative) COVID-19 Clin Com See Note 12/21/22 12/21/22 12/21/22 Range/Units 15:28 15:29 17:47 WBC (4.8-10.8) X10*3/uL RBC (4.60-5.80) X10*6/uL Hgb (14.0-18.0) g/dl Hct (42.0-52.0) % MCV (80.0-98.0) fL MCH (27.0-33.0) pg MCHC (31.0-36.0) g/dl RDW (11.0-16.0) % Plt Count (160-400) X10*3/uL MPV (9.4-12.4) fL Immature Gran % (Auto) (0.0-0.4) % Neut % (Auto) (45-73) % Lymph % (Auto) (20-40) % [place] % (Auto) (2-11) % Eos % (Auto) (0-4) % Baso % (Auto) (0-2) % Lymph # (Auto) (1.2-4.9) X10*3/uL [place] # (Auto) (0.1-1.2) X10*3/uL Eos # (Auto) (0.0-0.4) X10*3/uL Baso # (Auto) (0.0-0.2) X10*3/uL Abs Immat Gran (auto) (0.00-0.03) X10*3/uL Absolute Neuts (auto) (2.0-8.3) x10*3/uL Absolute Nucleated RBC (0.0-0.012) X10*3/uL Nucleated RBC % (auto) (0.0-0.2) /100WBC Sodium (135-145) mmol/L Potassium (3.3-5.1) mmol/L Chloride (96-108) mmol/L Carbon Dioxide (22-29) mmol/L Anion Gap (12-20) BUN (9-16) mg/dL Creatinine (0.5-1.4) mg/dL Estim Creat Clear Calc Estimated GFR Random Glucose (60-115) mg/dL Calcium (8.4-10.2) mg/dL Magnesium (1.6-2.6) mg/dL Total Bilirubin (0.0-1.0) mg/dL AST (5-37) U/L ALT (0-40) U/L Alkaline Phosphatase (39-117) U/L Troponin I High Sens 16.8 14.9 (<3.5-35.0) ng/L Total Protein (6.5-8.0) g/dL Albumin (3.5-5.0) g/dL Urine Color Yellow Urine Appearance Clear Urine pH 7.0 (5.0-9.0) Ur Specific [place] <= 1.005 (1.005-1.025) Urine Protein Negative (Neg-Trace) mg/dL Urine Glucose (UA) 100 H (Negative) mg/dL Urine Ketones Negative (Negative) mg/dL Urine Blood Negative (Negative) Urine Nitrite Negative (Negative) Ur Leukocyte Esterase Negative (Negative) COVID-19 ([facility]) (Negative) COVID-19 Clin Com Independent Interpretation I performed an independent interpretation of an: EKG Interpretation: Normal sinus rhythm heart rate 62 beats per minute normal interval normal axis no acute ST-T changes no acute ischemia Discharge Plan Discharge Clinical Impression: Chest wall pain Patient Disposition: Home, Self-Care Instructions: Chest Wall Pain (ED) Additional Instructions: Your chest pain is likely musculoskeletal Take Tylenol for pain Follow-up with PCP Prescriptions: No Action insulin glargine [Lantus Solostar U-100 Insulin] 100 unit/mL (3 mL) insulin pen 8 unit subcut QPM 90 Days Qty: 12 3RF sildenafil 50 mg tablet 50 mg PO DAILY PRN (Reason: sexual activity) Qty: 5 0RF Rx Instructions: administer 30 minutes to 4 hours before activity pen needle, diabetic [BD Ultra-Fine Leeanne Pen Needle] 32 gauge x 5/32 needle 1 ea subcut DAILY Qty: 100 2RF omega 9-jce-vox-fish oil [Fish Oil] 1,200 (144-216) mg capsule 1 cap PO DAILY Qty: 90 3RF Flovent HFA 220 mcg/actuation HFA aerosol inhaler 1 puff PO BID Qty: 36 1RF lancets [FreeStyle Lancets] 28 gauge misc 28 gauge topical DAILY Qty: 100 11RF levothyroxine 125 mcg tablet 125 mcg PO DAILY Qty: 90 0RF lisinopril 2.5 mg tablet 2.5 mg PO BID Qty: 90 1RF atorvastatin 10 mg tablet 10 mg PO BEDTIME Qty: 90 1RF calcium polycarbophil [Fiber Laxative (ca polycarbo)] 625 mg tablet 625 mg PO BID PRN (Reason: constipation) Qty: 60 6RF Trulicity 1.5 mg/0.5 mL pen injector 1.5 mg subcut QWEEK 28 Days Qty: 2 6RF tizanidine 4 mg tablet 4 mg PO TID PRN (Reason: for muscle spasm) Qty: 90 0RF FreeStyle Lite Strips Strip 1 strip miscellaneous BID Qty: 100 7RF ergocalciferol (vitamin D2) 1,250 mcg (50,000 unit) capsule 1,250 mcg PO QWEEK Qty: 12 2RF lorazepam 0.5 mg tablet 0.5 mg PO TID PRN (Reason: Anxiety) lamotrigine 200 mg tablet 200 mg PO BID zonisamide 100 mg capsule 100 mg PO BID trazodone 50 mg tablet 50 mg PO BEDTIME PRN (Reason: Insomnia) albuterol sulfate [ProAir HFA] 90 mcg/actuation HFA aerosol inhaler 2 puff inhalation Q6H PRN (Reason: Wheezing) Farxiga 10 mg tablet 10 mg PO DAILY aripiprazole 5 mg tablet 5 mg PO DAILY (DME) pen needle, diabetic 32 gauge x /32 needle See Rx Instructions subcut .MEDSUPPLY Qty: 50 Rx Instructions: As directed olanzapine 5 mg tablet 5 mg PO BEDTIME polyethylene glycol 3350 [Gavilax] 17 gram/dose powder 17 g PO DAILY Qty: 510 6RF melatonin 5 mg tablet 5 mg PO BEDTIME omeprazole 20 mg capsule,delayed release(DR/EC) 20 mg PO DAILY 30 Days Qty: 30 6RF Interventions: ED Discharge Assessment Last Done: 12/21/22 19:15 Discharge Date/Time: 12/21/22 19:16
[2022-12-21] MEDS: Ketorolac Tromethamine 30 MG/ML VIAL IVPUSH (16:52)
--- NOTE | 2022-12-21 16:57 | PC.NURSE ---
Alert and oriented. Medicated per order for complaints of right sided back pain that comes and goes.
[2022-12-21 18:29] LABS: Troponin-I High Sensitivity 14.9 ng/L (<3.5-35.0)
[2022-12-21 19:14] VITALS: BP 124/72; PULSE 64; RESP 20; O2SAT 100
== END 2022-12-21 19:16 | disposition home or self-care (01) ==
PROVIDERS: Physician Assistant Medical; Emergency Provider Internal Medicine; PCP Internal Medicine
DX: R07.89 Other chest pain (principal); Z20.822 Contact with and (suspected) exposure to COVID-19; E11.9 Type 2 diabetes mellitus without complications; I10 Essential (primary) hypertension; E78.5 Hyperlipidemia, unspecified; Z87.891 Personal history of nicotine dependence; Z79.4 Long term (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; Z79.899 Other long term (current) drug therapy; Z79.02 Long term (current) use of antithrombotics/antiplatelets
CPT/HCPCS: 36415; 80053; 81003; 83735; 84484; 85025; 87635; 93005; 96374; 99284; 99285; J1885

== ENCOUNTER 2023-01-07 13:49 | Outpatient (REF) | payer OTHER, SELFPAY ==
[2023-01-07 14:10] LABS: MANUAL DIFF FLAG NO
[2023-01-07 14:28] LABS: Basophils Percent Auto 0.4 % (0-2); Eosinophils Absolute Auto 0.1 X10*3/uL (0.0-0.4); Eosinophils Percent Auto 1.2 % (0-4); Hematocrit 39.8 % (42.0-52.0); Hemoglobin 12.9 g/dl (14.0-18.0); Imm Gran Abs Auto 0.08 X10*3/uL (0.00-0.03); Imm Gran Pct Auto 1.1 % (0.0-0.4); Lymphocytes Absolute Auto 2.1 X10*3/uL (1.2-4.9); Lymphocytes Percent Auto 28.1 % (20-40); Mean Corpuscular HGB Conc 32.4 g/dl (31.0-36.0); Mean Corpuscular Volume 92.6 fL (80.0-98.0); Monocytes Absolute Auto 0.5 X10*3/uL (0.1-1.2); Monocytes Percent Auto 6.5 % (2-11); Neutrophils Absolute Auto 4.8 x10*3/uL (2.0-8.3); Neutrophils Percent Auto 62.7 % (45-73); Platelet Count 232 X10*3/uL (160-400); White Blood Count 7.6 X10*3/uL (4.8-10.8)
[2023-01-07 15:38] LABS: Albumin Level 4.7 g/dL (3.5-5.0); Anion Gap 12 (12-20); Blood Urea Nitrogen 36 mg/dL (9-16); Calcium 9.8 mg/dL (8.4-10.2); Carbon Dioxide 24 mmol/L (22-29); Chloride 104 mmol/L (96-108); Estimated Glomerular Filt Rate 22; Magnesium 2.5 mg/dL (1.6-2.6); Phosphorus 5.1 mg/dL (2.7-4.5); Potassium 5.2 mmol/L (3.3-5.1); Sodium 135 mmol/L (135-145)
[2023-01-07 15:54] LABS: Vitamin D 25-OH Total 51.6 ng/mL (>30)
[2023-01-07 17:45] LABS: Appearance Urine Clear; Color Urine Yellow; Glucose Urine UA 250 mg/dL (Negative); Leukocyte Esterase Urine Negative (Negative); Nitrite Urine Negative (Negative); Specific Gravity - Urine <= 1.005 (1.005-1.025); Urine Blood Negative (Negative); Urine Ketones Negative (Negative); Urine Protein Negative (Neg-Trace)
[2023-01-07 17:57] LABS: Bacteria Urine None Seen (None Seen); Hyaline Casts Urine 0-2 /LPF (0-2); RBC Urine 0-2 /HPF (0-2); Squamous Epithelial Cell Urine 0-2 /HPF (0-2); WBC Urine 0-5 /HPF (0-5)
[2023-01-07 18:04] LABS: Creatinine Urine 17.72 mg/dL; Microalbum/Creatinine Ratio Ur 112.8 ug/mg cr; Total Protein Urine Random < 7 mg/dL (<12)
[2023-01-08 13:04] LABS: Calcium (PTHI) 9.5 mg/dL (8.6-10.3); PTHI 120 pg/mL (16-77)
== END 2023-01-07 13:50 | disposition home or self-care (01) ==
LOC: HO.LAB 13:49
PROVIDERS: PCP Internal Medicine; Visit Provider Internal Medicine Nephrology
DX: I12.9 Hypertensive chronic kidney disease with stage 1 through stage 4 chronic kidney disease, or unspecified chronic kidney disease (principal); E11.22 Type 2 diabetes mellitus with diabetic chronic kidney disease; N18.4 Chronic kidney disease, stage 4 (severe); N25.0 Renal osteodystrophy; R82.90 Unspecified abnormal findings in urine
CPT/HCPCS: 36415; 80051; 81001; 82040; 82043; 82306; 82310; 82565; 83735; 83970; 84100; 84156; 84520; 85025; 87086

== ENCOUNTER 2023-02-25 14:19 | Outpatient (AMB) | payer OTHER, SELFPAY ==
[2023-02-25 14:20] VITALS: BP 130/82; PULSE 69; O2SAT 99; BMI 27.5
--- NOTE | 2023-02-25 14:20 | MHC.PC.OV ---
Vital Signs 02/25/23 14:20 Height 5 ft 9 in Weight 186 lb 2 oz BMI 27.5 BP 130/82 Blood Pressure Location Lt brachial Position Sitting Pulse 69 Pulse Source Pulse Oximeter Pulse Oximetry (%) 99 Oxygen Delivery Method Room Air Intake Visit Reasons: CKD, DM [employer] Assistant Required: No Accompanied by: Self / Same As Patient Allergies No Known Allergies Allergy (Unknown, Verified 02/25/23 14:56) U Medication List - Last Reconciled 02/25/23 by Zeb Ca MD albuterol sulfate 90 mcg/actuation (ProAir HFA) 2 puffs inhalation Q6H PRN aripiprazole 5 mg PO DAILY atorvastatin 10 mg PO BEDTIME blood sugar diagnostic (FreeStyle Lite Strips) 1 strip miscellaneous BID calcium polycarbophil (Fiber Laxative (calcium polycarbophil)) 625 mg PO BID PRN dapagliflozin propanediol (Farxiga) 10 mg PO DAILY dulaglutide (Trulicity) 1.5 mg (0.5 mL) subcut QWEEK 28 days ergocalciferol (vitamin D2) 1,250 mcg PO QWEEK fluticasone propionate 220 mcg/actuation (Flovent HFA) 1 puff PO BID insulin glargine (Lantus Solostar U-100 Insulin) 8 units (0.08 mL) subcut QPM 90 days lamotrigine 200 mg PO BID lancets (FreeStyle Lancets) 28 gauge topical DAILY levothyroxine 125 mcg PO DAILY lisinopril 2.5 mg PO BID lorazepam 0.5 mg PO TID PRN melatonin 5 mg PO BEDTIME olanzapine 5 mg PO BEDTIME omega [id number]-fish oil 1,200 (144-216) mg (Fish Oil) 1 cap PO DAILY omeprazole 20 mg PO DAILY 30 days pen needle, diabetic (BD Ultra-Fine Leeanne Pen Needle) 1 ea subcut DAILY pen needle, diabetic As directed polyethylene glycol 3350 (Gavilax) 17 grams PO DAILY sildenafil 50 mg PO DAILY PRN tizanidine 4 mg PO TID PRN trazodone 50 mg PO BEDTIME PRN zonisamide 100 mg PO BID Tobacco use date assessed: 02/25/23 Dental Screening Dental Screen Date: 02/25/23 Did you have a dental visit in the last 12 months?: No Did you have a dental problem in the last 6 months where you did not have access to dental care?: No Was dental information given to patient?: Patient has dentist HPI CKD, DM HPI Details Patient comes in today for his follow up visit States that he feels okay Recalls that he went to the ER a couple of months ago in December 2022 for chest pains but was advised that his tests / work ups done all came back negative and that his chest pains at the time were most likely non-cardiac in origin States that he was advised to follow up with his PCP [facility] but states that he could not get an appointment scheduled until today States that he has not had any recurrence of his chest pains since He presently denies any headaches or dizziness Denies any SOB No nausea/vomiting, no abdominal pain No change in bowel habits noted Was seen by Dr. Knowles for nephrology evaluation last month and sent for some additional labs but states that no changes were made to his medications then Patient did not get his follow up labs done prior to his visit today although he did get the labs Dr. Knolwes ordered last month done [facility] Medical History Anxiety Asthma Chronic kidney disease, stage 4 (severe) Epilepsy Essential hypertension Fatty liver GERD (gastroesophageal reflux disease) Hyperkalemia Hypothyroidism IBS (irritable colon syndrome) FPC (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 Memory impairment Obesity (BMI 30-39.9) Overweight (BMI 25.0-29.9) Prolonged QT interval Pure hypercholesterolemia Schizoaffective disorder Seizures Type 2 diabetes mellitus with diabetic chronic kidney disease Vitamin D deficiency Surgical History H/O colonoscopy No pertinent past surgical history Family History Father No problems noted. 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 1. Little interest or pleasure in doing things: not at all 2. Feeling down, depressed, or hopeless: not at all 3. Trouble falling or staying asleep, or sleeping too much: not at all 4. Feeling tired or having little energy: not at all 5. Poor appetite or overeating: not at all 6. Feeling bad about yourself - or that you are a failure or have let yourself or your family down: not at all 7. Trouble concentrating on things, such as reading the newspaper or watching television: not at all 8. Moving or speaking so slowly that other people could have noticed. Or the opposite - being so fidgety or restless that you have been moving around a lot more than usual: not at all 9. Thoughts that you would be better off or of hurting yourself in some way: not at all Total score: 0 Depression Screening Interpretation: Negative 38383 - PHQ-9 Billing: Yes Source: Developed by Drs. Emiliano Ledezma, Ashly Pat, Rohit Tilley and colleagues, with an educational danette from [employer]. Thrive Questionnaire Date Thrive assessed: 02/25/23 I am a: Patient What is your living situation today?: I have a steady place to live Within the past 12 months, did the food you bought not last and you didn't have the money to get more?: Never true Within the past 12 months, did you worry whether your food would run out before you got money to buy more?: Never true Do you have trouble paying for medicines?: No Do you have trouble getting transportation to medical appointments?: No Do you have trouble paying your heating and electricity bill?: No Do you have trouble taking care of your child, family member or friend?: No Do you have trouble with day-to-day activities such as bathing, preparing meals, shopping, managing finances, etc.?: No Are you currently unemployed and looking for a job?: No Are you interested in more education?: No Please select the resources that you would like help with: None Currently or been in a relationship where the following occur: no concerns reported AUDIT C Alcohol Use Questionnaire (AUDIT-C) 1. How often do you have a drink containing alcohol?: Never 3. How often do you have six or more drinks on one occasion?: Never Total Score: 0 Score Reviewed/Action Taken: Yes ELEUTERIO-7 AMB Questionnaire ELEUTERIO-7 Date ELEUTERIO - 7 assessed: 02/25/23 Feeling nervous, anxious, or on edge: 0 = Not at all Not being able to stop or control worryin = Not at all Worrying too much about different things: 0 = Not at all Trouble relaxin = Not at all Being so restless that it is hard to sit still: 0 = Not at all Becoming easily annoyed or irritable: 0 = Not at all Feeling afraid as if something awful might happen: 0 = Not at all Total ELEUTERIO-7 score (0-4 normal; 5-9 mild; 10-14 moderate; 15-21 severe): 0 Source: Developed by Drs. Emiliano Ledezma, Ashly Pat, Rohit Tilley and colleagues, with an educational danette from [employer]. Review of Systems Const Denies chills, Denies fatigue, Denies fever(s) and Denies headache(s) ENT Denies dysphagia, Denies dizziness, Denies otalgia, Denies headache(s), Denies neck pain, Denies odynophagia and Denies sore throat Card Denies chest pain, Denies palpitations and Denies dyspnea Resp Denies cough, Denies dyspnea and Denies wheezing GI Denies abdominal pain, Denies constipation, Denies dysphagia, Denies heartburn, Denies diarrhea, Denies nausea, Denies odynophagia and Denies vomiting Denies dysuria and Denies nocturia Musc Reports abnormal gait (unsteady), Denies arthralgias and Denies neck pain Neuro Reports abnormal gait (unsteady), Denies dizziness and Denies headache(s) Endo Denies fatigue and Denies palpitations Aller/Immun Denies wheezing Physical exam (Primary Care) Vital Signs: Last Vital Signs Pulse 69 02/25/23 14:20 BP 130/82 02/25/23 14:20 Pulse Ox 99 02/25/23 14:20 Oxygen Delivery Method Room Air 02/25/23 14:20 BMI result Body Mass Index 27.5 Tobacco/Smoking Status: Tobacco use Status Tobacco use date assessed 02/25/23 02/25/23 14:26 Patient Tobacco Use Status Former Tobacco user 02/25/23 14:26 e-Cigarette/Vaping Use Never Used 02/25/23 14:26 PHQ-9: PHQ-9 Score PHQ-9: Total score 0 02/25/23 14:26 Depression Screening Interpretation: Negative Thrive Assessment: Date of Thrive Assessment Date Thrive assessed 02/25/23 02/25/23 14:26 Currently or been in a relationship where the following occur: no concerns reported Const General: no acute distress and alert HENMT Ears: TM's normal bilaterally and EAC's normal Throat: Yes posterior oropharynx normal and Yes tonsils normal (no TP congestion noted) Neck Neck: Yes no lymphadenopathy and Yes supple Resp Auscultation: clear to auscultation bilaterally, no rales and no wheezes Cardio Rate: regular rate Rhythm: regular rhythm Heart sounds: no murmurs GI Palpation (GI): Soft to palpation and nontender Auscultation: normal bowel sounds Extrem General: Yes no clubbing, cyanosis or edema Results AMB Hemoglobin A1c AMB Hemoglobin A1c 5.5 % Last Edit by GABE Gibson on 02/25/23 14:57 Results Reviewed Results Reviewed: Laboratory Tests 01/07/23 01/07/23 01/07/23 14:05 14:05 14:05 WBC 7.6 Hgb 12.9 L Hct 39.8 L Plt Count 232 Sodium 135 Potassium 5.2 H D Creatinine 3.00 H Estimated GFR 22 Calcium 9.8 D Phosphorus 5.1 H PTH Intact 120 H Calcium (PTH Intact) 9.5 Ur Specific [place] Urine Protein Urine Glucose (UA) Urine Blood Microalb/Creat Ratio 01/07/23 01/07/23 15:30 15:30 WBC Hgb Hct Plt Count Sodium Potassium Creatinine Estimated GFR Calcium Phosphorus PTH Intact Calcium (PTH Intact) Ur Specific [place] <= 1.005 Urine Protein Negative Urine Glucose (UA) 250 H Urine Blood Negative Microalb/Creat Ratio 112.8 Assessment and Plan Assessment & Plan (1) Type 2 diabetes mellitus with diabetic chronic kidney disease: Code(s): E11.22 - Type 2 diabetes mellitus with diabetic chronic kidney disease Qualifiers: Diabetes mellitus retirement insulin use: with retirement use Chronic kidney disease stage: stage 3 (moderate) Chronic kidney disease stage 3 subtype: unspecified whether 3a or 3b Qualified Code(s): E11.22 - Type 2 diabetes mellitus with diabetic chronic kidney disease; N18.30 - Chronic kidney disease, stage 3 unspecified; Z79.4 - terminal computer 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 Plan: In-office HgbA1c done today is at 5.5% (was also at 5.5% a few months ago) - goal is <6.5% Reinforced diabetic diet Continue Lantus 8 units SQ Q HS and Trulicity 1.5 mg SQ once a week; is also on Farxiga 10 mg QD but this was started by nephrology more to help stabilize his CKD Follow up with endocrinology as scheduled (2) Chronic kidney disease, stage 4 (severe): Code(s): N18.4 - Chronic kidney disease, stage 4 (severe) Plan: Renal function appears stable currently Was started additionally on Farxiga 10 mg QD by nephrology Continue Lisinopril 2.5 mg QD and emphasized again complete avoidance of all NSAIDs and tight control of his BP and blood sugar His recent labs also suggest possibility of hyperparathyroidism, likely primary Follow up with nephrology as scheduled (3) Vitamin D deficiency: Code(s): E55.9 - Vitamin D deficiency, unspecified Plan: Continue Vitamin D2 08627 units once a week (4) Pure hypercholesterolemia: Code(s): E78.00 - Pure hypercholesterolemia, unspecified Plan: Has no follow up fasting lipids done recently Reinforced low cholesterol diet Continue Atorvastatin 10 mg daily Will recheck labs in 3 months for follow-up (5) Essential hypertension: Code(s): I10 - Essential (primary) hypertension Plan: Reinforced low-sodium diet -? goal is systolic BP of at least 120 to 130 mm or less Continue Lisinopril 2.5 mg QD (6) Hypothyroidism: Code(s): E03.9 - Hypothyroidism, unspecified Qualifiers: Hypothyroidism type: acquired Qualified Code(s): E03.9 - Hypothyroidism, unspecified Plan: Continue Levothyroxine 125 mcg QD Will recheck TFTs in 3 months for follow up (7) Asthma: Code(s): J45.909 - Unspecified asthma, uncomplicated Qualifiers: Asthma severity: mild Asthma persistence: intermittent Asthma complication type: uncomplicated Qualified Code(s): J45.20 - Mild intermittent asthma, uncomplicated Plan: Stable - continue ProAir HFA 2 puffs 4 times a day as needed Follow up with pulmonary as scheduled (8) GERD (gastroesophageal reflux disease): Code(s): K21.9 - Gastro-esophageal reflux disease without esophagitis Qualifiers: Esophagitis presence: without esophagitis Qualified Code(s): K21.9 - Gastro-esophageal reflux disease without esophagitis Plan: Dietary restrictions reinforced Continue Omeprazole 20 mg QD (9) Epilepsy: Code(s): G40.909 - Epilepsy, unspecified, not intractable, without status epilepticus Qualifiers: Epilepsy type: unspecified Intractability: not intractable Status epilepticus: without status epilepticus Qualified Code(s): G40.909 - Epilepsy, unspecified, not intractable, without status epilepticus Plan: EEG done in the past has showed findings consistent with partial complex seizure; states that he has not had any seizures lately Continue Zonisamide 100 mg BID Follow-up with Neurology as scheduled (10) Schizoaffective disorder: Code(s): F25.9 - Schizoaffective disorder, unspecified Qualifiers: Schizoaffective disorder type: unspecified Qualified Code(s): F25.9 - Schizoaffective disorder, unspecified Plan: Continue Lamotrigine 200 mg twice a day, Zyprexa 5 mg daily at bedtime and Lorazepam 0.5 mg 3 times a day as needed Follow-up with Psychiatry as scheduled (11) Overweight (BMI 25.0-29.9): Code(s): E66.3 - Overweight Plan: Reinforced diet/exercise as tolerated/lose weight Plan Follow up in 3 months Orders: Orders Comprehensive [place]. Panel Fast 3 Months E78.00 - Pure hypercholesterolemia, unspecified Lipid Panel 3 Months E78.00 - Pure hypercholesterolemia, unspecified Hemoglobin A1c 3 Months E11.9 - Type 2 diabetes mellitus without complications Free T4 (Free Thyroxine) 3 Months E03.9 - Hypothyroidism, unspecified Thyroid Stimulating Hormone 3 Months E03.9 - Hypothyroidism, unspecified Vitamin D 25-OH Total 3 Months E55.9 - Vitamin D deficiency, unspecified Microalbumin, Random (w Creat) 3 Months E11.9 - Type 2 diabetes mellitus without complications Complete Blood Count Auto Diff 3 Months I10 - Essential (primary) hypertension UA CC w/rflx Micro + Cult 3 Months R30.0 - Dysuria PTHI 3 Months E21.3 - Hyperparathyroidism, unspecified, N18.30 - Chronic kidney disease, stage 3 unspecified AMB Hemoglobin A1c Today E11.65 - Type 2 diabetes mellitus with hyperglycemia Coding Level of Care Code Est Pt Level 4 (37161) Diagnoses Type 2 diabetes mellitus with diabetic chronic kidney disease E11.22; N18.30; Z79.4 Diabetes mellitus ad terminal makeup operator insulin use: with ad terminal makeup operator use Chronic kidney disease stage: stage 3 (moderate) Chronic kidney disease stage 3 subtype: unspecified whether 3a or 3b Chronic kidney disease, stage 4 (severe) N18.4 Vitamin D deficiency E55.9 Pure hypercholesterolemia E78.00 Essential hypertension I10 Hypothyroidism E03.9 Hypothyroidism type: acquired Asthma J45.20 Asthma severity: mild Asthma persistence: intermittent Asthma complication type: uncomplicated GERD (gastroesophageal reflux disease) K21.9 Esophagitis presence: without esophagitis Epilepsy G40.909 Epilepsy type: unspecified Intractability: not intractable Status epilepticus: without status epilepticus Schizoaffective disorder F25.9 Schizoaffective disorder type: unspecified Overweight (BMI 25.0-29.9) E66.3
== END 2023-02-25 14:59 | disposition home or self-care (01) ==
PROVIDERS: Visit Provider Internal Medicine
DX: E11.22 Type 2 diabetes mellitus with diabetic chronic kidney disease (principal); Z79.4 Long term (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; I12.9 Hypertensive chronic kidney disease with stage 1 through stage 4 chronic kidney disease, or unspecified chronic kidney disease; N18.4 Chronic kidney disease, stage 4 (severe); E55.9 Vitamin D deficiency, unspecified; E78.00 Pure hypercholesterolemia, unspecified; E03.9 Hypothyroidism, unspecified; J45.20 Mild intermittent asthma, uncomplicated; K21.9 Gastro-esophageal reflux disease without esophagitis; G40.909 Epilepsy, unspecified, not intractable, without status epilepticus; F25.9 Schizoaffective disorder, unspecified; E66.3 Overweight
CPT/HCPCS: 83036; 99214

== ENCOUNTER → 2023-03-03 10:00 | Outpatient (BNVA) | payer OTHER, SELFPAY | PROVIDERS: Visit Provider Dietitian, Registered | DX: E11.65 Type 2 diabetes mellitus with hyperglycemia (principal); Z79.4 Long term (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 | CPT/HCPCS: 97803 ==

== ENCOUNTER 2023-04-10 10:48 | Outpatient (AMB) | payer OTHER, SELFPAY ==
[2023-04-10 11:04] VITALS: BP 122/80; PULSE 74; O2SAT 98; BMI 26.2
--- NOTE | 2023-04-10 11:04 | A.OFFPC_ITS ---
Vital Signs 04/10/23 11:04 Height 5 ft 9 in Weight 177 lb 4 oz BMI 26.2 BP 122/80 Blood Pressure Location Lt brachial Position Sitting Pulse 74 Pulse Source Pulse Oximeter Pulse Oximetry (%) 98 Oxygen Delivery Method Room Air Intake Visit Reasons: Medication follow Catering Chef Required: No Accompanied by: Self / Same As Patient Allergies No Known Allergies Allergy (Unknown, Verified 04/10/23 13:35) U Medication List - Last Reconciled 04/10/23 by Zeb Ca MD albuterol sulfate 90 mcg/actuation (ProAir HFA) 2 puffs inhalation Q6H PRN aripiprazole 5 mg PO DAILY atorvastatin 10 mg PO BEDTIME blood sugar diagnostic (FreeStyle Lite Strips) 1 strip miscellaneous BID calcium polycarbophil (Fiber Laxative (calcium polycarbophil)) 625 mg PO BID PRN dapagliflozin propanediol (Farxiga) 10 mg PO DAILY dulaglutide (Trulicity) 1.5 mg (0.5 mL) subcut QWEEK 28 days ergocalciferol (vitamin D2) 1,250 mcg PO QWEEK fluticasone propionate 220 mcg/actuation (Flovent HFA) 1 puff PO BID insulin glargine (Lantus Solostar U-100 Insulin) 8 units (0.08 mL) subcut QPM 90 days lamotrigine 200 mg PO BID lancets (FreeStyle Lancets) 28 gauge topical DAILY levothyroxine 125 mcg PO DAILY lisinopril 2.5 mg PO BID lorazepam 0.5 mg PO TID PRN melatonin 5 mg PO BEDTIME olanzapine 5 mg PO BEDTIME omega 3-bmg-xxg-fish oil 1,200 (144-216) mg (Fish Oil) 1 cap PO DAILY omeprazole 20 mg PO DAILY 30 days pen needle, diabetic (BD Ultra-Fine Leeanne Pen Needle) 1 ea subcut DAILY pen needle, diabetic As directed polyethylene glycol 3350 (Gavilax) 17 grams PO DAILY sildenafil 50 mg PO DAILY PRN tizanidine 4 mg PO TID PRN trazodone 50 mg PO BEDTIME PRN zonisamide 100 mg PO BID Tobacco use date assessed: 04/10/23 Dental Screening Dental Screen Date: 04/10/23 Did you have a dental visit in the last 12 months?: No Did you have a dental problem in the last 6 months where you did not have access to dental care?: No Was dental information given to patient?: Patient has dentist HPI Medication follow HPI Details Patient comes in today for his follow up visit States that he feels okay but would like to see if he can request additional hours for [facility]NA assistance as he reportedly has been having trouble remembering to take his evening meds Would also like to know if his recent request for a jury duty letter to exempt him from jury duty is completed or not He denies any headaches or dizziness Denies any chest pains, no SOB No nausea/vomiting, no abdominal pain No change in bowel habits noted Adds that he was seen by the diabetic heavy duty truck mechanic about a month ago and was advised that he will need a new/updated referral before they can continue seeing him Is also wondering why he is no longer seeing endocrinology for his diabetes as he used to see Meron Diop a couple of years ago before she left the practice [facility] Medical History Overweight (BMI 25.0-29.9) Chronic kidney disease, stage 4 (severe) Prolonged QT interval Hyperkalemia Memory impairment Vitamin D deficiency Hypothyroidism Seizures Anxiety Fatty liver IBS (irritable colon syndrome) GERD (gastroesophageal reflux disease) Obesity (BMI 30-39.9) Schizoaffective disorder Asthma Epilepsy Essential hypertension Pure hypercholesterolemia 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 1. Little interest or pleasure in doing things: not at all 2. Feeling down, depressed, or hopeless: not at all 3. Trouble falling or staying asleep, or sleeping too much: not at all 4. Feeling tired or having little energy: not at all 5. Poor appetite or overeating: not at all 6. Feeling bad about yourself - or that you are a failure or have let yourself o r your family down: not at all 7. Trouble concentrating on things, such as reading the newspaper or watching television: not at all 8. Moving or speaking so slowly that other people could have noticed. Or the opposite - being so fidgety or restless that you have been moving around a lot more than usual: not at all 9. Thoughts that you would be better off or of hurting yourself in some way: not at all Total score: 0 Depression Screening Interpretation: Negative 37949 - PHQ-9 Billing: Yes Source: Developed by Drs. Emiliano Ledezma, Ashly Pat, Rohit Tilley and colleagues, with an educational danette from [employer]. Thrive Questionnaire Date Thrive assessed: 04/10/23 I am a: Patient What is your living situation today?: I have a steady place to live Within the past 12 months, did the food you bought not last and you didn't have the money to get more?: Never true Within the past 12 months, did you worry whether your food would run out before you got money to buy more?: Never true Do you have trouble paying for medicines?: No Do you have trouble getting transportation to medical appointments?: No Do you have trouble paying your heating and electricity bill?: No Do you have trouble taking care of your child, family member or friend?: No Do you have trouble with day-to-day activities such as bathing, preparing meals, shopping, managing finances, etc.?: No Are you currently unemployed and looking for a job?: No Are you interested in more education?: No Please select the resources that you would like help with: None Currently or been in a relationship where the following occur: no concerns reported AUDIT C Alcohol Use Questionnaire (AUDIT-C) 1. How often do you have a drink containing alcohol?: Never 3. How often do you have six or more drinks on one occasion?: Never Total Score: 0 Score Reviewed/Action Taken: Yes ELEUTERIO-7 AMB Questionnaire ELEUTERIO-7 Date ELEUTERIO - 7 assessed: 04/10/23 Feeling nervous, anxious, or on edge: 0 = Not at all Not being able to stop or control worryin = Not at all Worrying too much about different things: 0 = Not at all Trouble relaxin = Not at all Being so restless that it is hard to sit still: 0 = Not at all Becoming easily annoyed or irritable: 0 = Not at all Feeling afraid as if something awful might happen: 0 = Not at all Total ELEUTERIO-7 score (0-4 normal; 5-9 mild; 10-14 moderate; 15-21 severe): 0 Source: Developed by Drs. Emiliano Ledezma, Ashly Pat, Rohit Tilley and colleagues, with an educational danette from [employer]. Review of Systems Const Denies fatigue, Denies fever(s) and Denies headache(s) ENT Denies dysphagia, Denies dizziness, Denies otalgia, Denies headache(s), Denies neck pain, Denies odynophagia and Denies sore throat Card Denies chest pain, Denies palpitations and Denies dyspnea Resp Denies cough, Denies dyspnea and Denies wheezing GI Denies abdominal pain, Denies constipation, Denies dysphagia, Denies heartburn, Denies diarrhea, Denies nausea, Denies odynophagia and Denies vomiting Denies dysuria, Denies nocturia and Denies urinary frequency Musc Reports abnormal gait (unsteady), Denies arthralgias and Denies neck pain Neuro Reports abnormal gait (unsteady), Denies dizziness and Denies headache(s) Endo Denies fatigue and Denies palpitations Aller/Immun Denies wheezing Physical exam (Primary Care) Vital Signs: Last Vital Signs Pulse 74 04/10/23 11:04 BP 122/80 04/10/23 11:04 Pulse Ox 98 04/10/23 11:04 Oxygen Delivery Method Room Air 04/10/23 11:04 BMI result Body Mass Index 26.2 Tobacco/Smoking Status: Tobacco use Status Tobacco use date assessed 04/10/23 04/10/23 11:06 Patient Tobacco Use Status Former Tobacco user 04/10/23 11:06 e-Cigarette/Vaping Use Never Used 04/10/23 11:06 Depression Screening Interpretation: Negative Thrive Assessment: Date of Thrive Assessment Date Thrive assessed 04/10/23 04/10/23 11:06 Currently or been in a relationship where the following occur: no concerns reported Const General: no acute distress and alert HENMT Ears: TM's normal bilaterally and EAC's normal Throat: Yes posterior oropharynx normal and Yes tonsils normal (no TP congestion noted) Neck Neck: Yes no lymphadenopathy and Yes supple Resp Auscultation: clear to auscultation bilaterally, no rales and no wheezes Cardio Rate: regular rate Rhythm: regular rhythm Heart sounds: no murmurs GI Palpation (GI): Soft to palpation and nontender Auscultation: normal bowel sounds Skin Rashes: no rashes Extrem General: Yes no clubbing, cyanosis or edema Assessment and Plan Assessment & Plan (1) Type 2 diabetes mellitus with diabetic chronic kidney disease: Code(s): E11.22 - Type 2 diabetes mellitus with diabetic chronic kidney disease Qualifiers: Diabetes mellitus shelter insulin use: with shelter use Chronic kidney disease stage: stage 3 (moderate) Chronic kidney disease stage 3 subtype: unspecified whether 3a or 3b Qualified Code(s): E11.22 - Type 2 diabetes mellitus with diabetic chronic kidney disease; N18.30 - Chronic kidney disease, stage 3 unspecified; Z79.4 - senior living (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 Plan: In-office HgbA1c was at 5.5% about 6 weeks ago (was also at 5.5% previously) - goal is <6.5% Reinforced diabetic diet Continue Lantus 8 units SQ Q HS and Trulicity 1.5 mg SQ once a week; is also on Farxiga 10 mg QD but this was started by nephrology more to help stabilize his CKD Follow up with diabetic heavy duty truck mechanic as scheduled - referral updated/renewed Is advised that since his diabetes appears to be well-controlled, he does not need to see endocrinology at this time and they would not be able to see him even if we refer him right now as they are still short-staffed (2) Chronic kidney disease, stage 4 (severe): Code(s): N18.4 - Chronic kidney disease, stage 4 (severe) Plan: Renal function appears stable lately Was started additionally on Farxiga 10 mg QD by nephrology a couple of months ago Continue Lisinopril 2.5 mg QD and emphasized again complete avoidance of all NSAIDs and tight control of his BP and blood sugar His recent labs also suggest possibility of hyperparathyroidism, likely primary Follow up with nephrology as scheduled (3) Essential hypertension: Code(s): I10 - Essential (primary) hypertension Plan: Reinforced low-sodium diet -? goal is systolic BP of at least 120 to 130 mm or less Continue Lisinopril 2.5 mg QD (4) Vitamin D deficiency: Code(s): E55.9 - Vitamin D deficiency, unspecified Plan: Continue Vitamin D2 53119 units once a week (5) Pure hypercholesterolemia: Code(s): E78.00 - Pure hypercholesterolemia, unspecified Plan: Reinforced low cholesterol diet Continue Atorvastatin 10 mg QD He is reminded to get his repeat labs done before his follow-up next month (6) Hypothyroidism: Code(s): E03.9 - Hypothyroidism, unspecified Qualifiers: Hypothyroidism type: acquired Qualified Code(s): E03.9 - Hypothyroidism, unspecified Plan: Continue Levothyroxine 125 mcg QD Will recheck his TFTs as scheduled next month for follow up (7) Asthma: Code(s): J45.909 - Unspecified asthma, uncomplicated Qualifiers: Asthma severity: mild Asthma persistence: intermittent Asthma complication type: uncomplicated Qualified Code(s): J45.20 - Mild intermittent asthma, uncomplicated Plan: Stable - continue ProAir HFA 2 puffs 4 times a day as needed Follow up with pulmonary as scheduled (8) GERD (gastroesophageal reflux disease): Code(s): K21.9 - Gastro-esophageal reflux disease without esophagitis Qualifiers: Esophagitis presence: without esophagitis Qualified Code(s): K21.9 - Gastro-esophageal reflux disease without esophagitis Plan: Dietary restrictions reinforced Continue Omeprazole 20 mg QD (9) Epilepsy: Code(s): G40.909 - Epilepsy, unspecified, not intractable, without status epilepticus Qualifiers: Epilepsy type: unspecified Intractability: not intractable Status epilepticus: without status epilepticus Qualified Code(s): G40.909 - Epilepsy, unspecified, not intractable, without status epilepticus Plan: EEG done in the past has showed findings consistent with partial complex seizure; states that he has not had any seizures lately Continue Zonisamide 100 mg BID Follow-up with Neurology as scheduled (10) Schizoaffective disorder: Code(s): F25.9 - Schizoaffective disorder, unspecified Qualifiers: Schizoaffective disorder type: unspecified Qualified Code(s): F25.9 - Schizoaffective disorder, unspecified Plan: Continue Lamotrigine 200 mg twice a day, Zyprexa 5 mg daily at bedtime and Lorazepam 0.5 mg 3 times a day as needed Follow-up with Psychiatry as scheduled He is advised that he should speak with VNA about potentially increasing his hours but cautioned him that his insurance will still have the final say on how many hours they will reimburse VNA for helping him and providing their services to him (11) Overweight (BMI 25.0-29.9): Code(s): E66.3 - Overweight Plan: Reinforced diet/exercise as tolerated/lose weight Plan Follow up as scheduled next month Advised that his jury duty letter should be up at the front desk team member for him to pick and shovel man Orders: Referrals Hospice Music Therapist Nutrition Referral E11.65 - Type 2 diabetes mellitus with hyperglycemia Coding Level of Care Code Est Pt Level 3 (07524) Diagnoses Type 2 diabetes mellitus with stage 3 chronic kidney disease, with long-term current use of insulin, unspecified whether stage 3a or 3b CKD E11.22; N18.30; Z79.4 Diabetes mellitus superintendent container terminal insulin use: with shelter use Chronic kidney disease stage: stage 3 (moderate) Chronic kidney disease stage 3 subtype: unspecified whether 3a or 3b Chronic kidney disease, stage 4 (severe) N18.4 Essential hypertension I10 Vitamin D deficiency E55.9 Pure hypercholesterolemia E78.00 Acquired hypothyroidism E03.9 Hypothyroidism type: acquired Mild intermittent asthma without complication J45.20 Asthma severity: mild Asthma persistence: intermittent Asthma complication type: uncomplicated Gastroesophageal reflux disease without esophagitis K21.9 Esophagitis presence: without esophagitis Nonintractable epilepsy without status epilepticus, unspecified epilepsy type G40.909 Epilepsy type: unspecified Intractability: not intractable Status epilepticus: without status epilepticus Schizoaffective disorder, unspecified type F25.9 Schizoaffective disorder type: unspecified Overweight (BMI 25.0-29.9) E66.3
== END 2023-04-10 12:01 | disposition home or self-care (01) ==
PROVIDERS: PCP Internal Medicine; Visit Provider Internal Medicine
DX: I12.9 Hypertensive chronic kidney disease with stage 1 through stage 4 chronic kidney disease, or unspecified chronic kidney disease (principal); N18.4 Chronic kidney disease, stage 4 (severe); E11.22 Type 2 diabetes mellitus with diabetic chronic kidney disease; E03.9 Hypothyroidism, unspecified; E55.9 Vitamin D deficiency, unspecified; Z79.4 Long term (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; E78.00 Pure hypercholesterolemia, unspecified; N18.30 Chronic kidney disease, stage 3 unspecified; J45.20 Mild intermittent asthma, uncomplicated; K21.9 Gastro-esophageal reflux disease without esophagitis; G40.909 Epilepsy, unspecified, not intractable, without status epilepticus; F25.9 Schizoaffective disorder, unspecified
CPT/HCPCS: 99213

== ENCOUNTER 2023-05-22 12:48 | Outpatient (AMB) | payer OTHER, SELFPAY ==
--- NOTE | 2023-05-22 12:49 | MHC.OFFVIS ---
Intake Vital Signs 05/22/23 12:50 Height 5 ft 9 in Weight 185 lb 10.067 oz BMI 27.4 BP 116/78 Blood Pressure Location Rt brachial Position Sitting Pulse 69 Intake Visit Reasons: 6 months follow up Intake Note: Shaheen presents in the office as a 6 month follow up of GERD. CC: Patient reports he has been doing well and denies any new GI concerns today. Director Of Transportation Required: No Accompanied by: Self / Same As Patient Allergies No Known Allergies Allergy (Unknown, Verified 04/10/23 13:35) U HPI 6 months follow up HPI Details Assessment & Plan (1) GERD (gastroesophageal reflux disease): Code(s): K21.9 - Gastro-esophageal reflux disease without esophagitis Qualifiers: Esophagitis presence: without esophagitis Qualified Code(s): K21.9 - Gastro-esophageal reflux disease without esophagitis Plan: He continues to feel well on his omeprazole 20mg qd. It appears that his renal fxn has worsened, and he sees Dr. Knowles for this. He will be seeing him soon, so I suggest he ask Dr. Knowles if this is appropriate to continue - as sometimes it is contraindicated for renal patients. He continues to do well utilizing MiraLax and fiber for his bowel control. He will be having dental surgery and having propofol, so he will be seeing his nephologist for clearance. ROV 6 mos. (2) Irritable bowel syndrome with both constipation and diarrhea: Code(s): K58.2 - Mixed irritable bowel syndrome Medications: Refilled omeprazole 20 mg PO DAILY 30 days 30 caps 6RF K21.9 - Gastro-eso phageal reflux dis ease without esoph agitis TODAY'S VISIT He has been doing well. He has not yet seen Dr. Knowles to ask about the continuance of the omeprazole 2omg qd. He continues to do well utilizing MiraLax and fiber for his bowel control. He frequently has trouble getting good high fiber food sources because he people is on SSI and has a limited income. His insurance will not cover fiber therapy, but he tries to get store bread raisin bran when he can. He will be having dental surgery and having propofol, so he will be seeing his railroad operating engineer for clearance. He has multiple layers to organize including transportation, who he can stay with while recovering form anesthesia. ROV 6 mos. 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 Cognitive needs: No Hearing needs: No Vision needs: Yes (glasses) Review of Systems Const Denies fatigue, Denies fever(s), Denies night sweats, Denies poor appetite and Denies weight loss Eyes Details: glasses Reports requires corrective lenses ENT Reports Normal hearing present, Denies dental pain, Denies dysphagia, Denies hearing loss, Denies mouth pain, Denies odynophagia, Denies throat swelling, Denies tongue swelling and Reports other (Dentition adequate) Card Reports no additional complaints Resp Reports no additional complaints GI Denies abdominal pain, Denies melena, Denies bloating, Denies hematochezia, Reports constipation, Denies GI cramping, Denies dysphagia, Denies excessive flatus, Denies early satiety, Reports heartburn, Denies diarrhea, Denies nausea, Denies odynophagia, Denies vomiting and Denies hematemesis Skin/Breast Denies pruritus, Denies lesions, Denies rash and Denies jaundice Neuro Reports Normal hearing present and Denies Abnormal speech present Endo Denies fatigue Aller/Immun Denies throat swelling and Denies tongue swelling Physical Exam Vital Signs: BMI result Body Mass Index 27.4 Const General: cooperative, no acute distress, well developed and well groomed Nutritional Appearance: average body habitus and well nourished Orientation/consciousness: oriented to person, oriented to place and oriented to time Limitations: No language barrier HEENT Head: Yes normocephalic and Yes atraumatic Eyes General: appearance normal, both eyes and all related structures Pupils: Equal, round and reactive pupils present Neck Neck: Yes normal visual inspection and Yes no lymphadenopathy Thyroid: Thyroid normal Resp Effort & Inspection: normal respiratory effort and able to speak in complete sentences Auscultation: clear to auscultation bilaterally Cardio Rate: regular rate Rhythm: regular rhythm Heart sounds: Normal, physiologic split S2 sound present Peripheral pulses: radial pulses present and posterior tibial pulses present GI Inspection: No distended and No Abdominal panniculus present Palpation (GI): Soft to palpation, nontender, no guarding, not rigid and No hepatosplenomegaly present Percussion: Yes normal to percussion Auscultation: normal bowel sounds Rectal Exam - Male: Yes deferred Skin General skin exam: no rashes or lesions noted, turgor normal, skin not dry, no jaundice, No spider nevi and no striae Rashes: no rashes Nails: normal Neuro General: oriented to person, oriented to place and oriented to time Cranial nerves: Yes Equal, round and reactive pupils present and Yes Normal hearing present Speech: No Abnormal speech present Extrem General: Yes normal to inspection, No clubbing, No cyanosis and No edema Psych Appearance: grossly normal and well kempt Mental Status: mental status grossly normal Speech and movement: Normal speech and movement present Affect: normal affect Attitude: cooperative Thought process: Normal thought process present and not confabulating Thought content: Normal thought content present Insight: Good insight present (Psych) Judgement: Good judgement present (Psych) Assessment & Plan Assessment & Plan (1) GERD (gastroesophageal reflux disease): Code(s): K21.9 - Gastro-esophageal reflux disease without esophagitis Qualifiers: Esophagitis presence: without esophagitis Qualified Code(s): K21.9 - Gastro-esophageal reflux disease without esophagitis (2) Irritable bowel syndrome with both constipation and diarrhea: Code(s): K58.2 - Mixed irritable bowel syndrome Medications: Refilled omeprazole 20 mg PO DAILY 90 caps 2RF K21.9 - Gastro-esophageal reflux disease without esophagitis polyethylene glycol 3350 (Gavilax) 17 grams PO DAILY 510 grams 6RF K58.2 - Mixed irritable bowel syndrome Coding Level of Care Code Est Pt Level 3 (82890) Diagnoses Gastroesophageal reflux disease without esophagitis K21.9 Esophagitis presence: without esophagitis Irritable bowel syndrome with both constipation and diarrhea K58.2
[2023-05-22 12:50] VITALS: BP 116/78; PULSE 69; BMI 27.4
== END 2023-05-22 13:18 | disposition home or self-care (01) ==
PROVIDERS: Visit Provider Nurse Practitioner
DX: K21.9 Gastro-esophageal reflux disease without esophagitis (principal); K58.2 Mixed irritable bowel syndrome
CPT/HCPCS: 99213

== ENCOUNTER → 2023-05-22 12:48 | Outpatient (BNVA) | payer OTHER, SELFPAY | PROVIDERS: Visit Provider Nurse Practitioner | DX: K21.9 Gastro-esophageal reflux disease without esophagitis (principal); K58.2 Mixed irritable bowel syndrome | CPT/HCPCS: 99212 ==

== ENCOUNTER 2023-06-13 12:45 | Outpatient (AMB) | payer OTHER, SELFPAY ==
--- NOTE | 2023-06-13 12:50 | A.OFFPC_ITS ---
Vital Signs 06/13/23 12:51 Height 5 ft 9 in Weight 184 lb BMI 27.2 BP 124/82 Blood Pressure Location Lt brachial Position Sitting Pulse Source Pulse Oximeter Pulse Oximetry (%) 98 Oxygen Delivery Method Room Air Intake Visit Reasons: bleeding through his mouth gum disease Intake Note: Patient is here for a Pre-op for extraction of 6-8 teeth, scheduled with TBD with [facility] Fax: [phone]. 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 Accompanied by: Self / Same As Patient Allergies No Known Allergies Allergy (Unknown, Verified 06/13/23 13:13) U Medication List - Last Reconciled 06/13/23 by TESHA Andrews albuterol sulfate 90 mcg/actuation (ProAir HFA) 2 puffs inhalation Q6H PRN aripiprazole 5 mg PO DAILY atorvastatin 10 mg PO BEDTIME blood sugar diagnostic (FreeStyle Lite Strips) 1 strip miscellaneous BID calcium polycarbophil (Fiber (calcium polycarbophil)) 625 mg PO BID PRN dapagliflozin propanediol (Farxiga) 10 mg PO DAILY dulaglutide (Trulicity) 1.5 mg (0.5 mL) subcut QWEEK 28 days ergocalciferol (vitamin D2) 1,250 mcg PO QWEEK fluoxetine (Prozac) 20 mg PO DAILY fluticasone propionate 220 mcg/actuation (Flovent HFA) 1 puff PO BID insulin glargine (Lantus Solostar U-100 Insulin) 8 units (0.08 mL) subcut QPM 90 days lamotrigine 200 mg PO BID lancets (FreeStyle Lancets) 28 gauge topical DAILY levothyroxine 125 mcg PO DAILY lisinopril 2.5 mg PO BID lorazepam 0.5 mg PO TID PRN melatonin 5 mg PO BEDTIME olanzapine 5 mg PO BEDTIME omega 8-jfr-evk-fish oil 1,200 (144-216) mg (Fish Oil) 1 cap PO DAILY omeprazole 20 mg PO DAILY pen needle, diabetic (BD Ultra-Fine Leeanne Pen Needle) 1 ea subcut DAILY pen needle, diabetic As directed polyethylene glycol 3350 (Gavilax) 17 grams PO DAILY sildenafil 50 mg PO DAILY PRN tizanidine 4 mg PO TID PRN trazodone 50 mg PO BEDTIME PRN zonisamide 100 mg PO BID Tobacco use date assessed: 04/10/23 Dental Screening Dental Screen Date: 06/13/23 Did you have a dental visit in the last 12 months?: No Did you have a dental problem in the last 6 months where you did not have access to dental care?: No Was dental information given to patient?: Patient has dentist HPI HPI Comments History of Present Illness Details 53-year-old male past medical history si gnificant for CKD stage 3, epilepsy, schizoaffective disorder, hypertension, hypercholesteremia, type 2 diabetes mellitus, GERD, hypothyroidism. Patient Dr. Ca, patient presents today for preop appointment for pre-op for teeth extraction with [facility] by Olu Stuart. Patient denies chest pain, palpitations, shortness of breath and syncope. Patient denies prior complications to anesthesia. Preop labs ordered an EKG. Patient does not require any prophylact ic antibiotic therapy prior to tooth extraction surgery. Patient denies CP,palpitation etc. no anesthesia problems. 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 Emiliano Ledezma, Ashly Pat, Rohit Tilley and colleagues, with an educational danette from [email or web address]. Review of Systems Const Denies chills, Denies fatigue, Denies fever(s) and Denies poor appetite Eyes Denies no additional complaints ENT Reports Normal hearing present Card Denies chest pain, Denies syncope, Denies rapid heart rate and Denies dyspnea Resp Denies cough and Denies dyspnea GI Denies change in stool character, Denies constipation, Denies diarrhea, Denies nausea and Denies vomiting Denies dysuria, Denies urinary frequency and Denies urinary urgency Neuro Reports Normal hearing present, Denies confusion and Denies syncope Psych Denies confusion Endo Denies fatigue Physical exam (Primary Care) Vital Signs: Last Vital Signs BP 124/82 06/13/23 12:51 Pulse Ox 98 06/13/23 12:51 Oxygen Delivery Method Room Air 06/13/23 12:51 BMI result Body Mass Index 27.2 Tobacco/Smoking Status: Tobacco use Status Tobacco use date assessed 04/10/23 06/13/23 12:57 Patient Tobacco Use Status Former Tobacco user 06/13/23 12:57 e-Cigarette/Vaping Use Never Used 06/13/23 12:57 Thrive Assessment: Date of Thrive Assessment Date Thrive assessed 04/10/23 06/13/23 12:57 Const General: No confusion Orientation/consciousness: No confusion HENMT Head: Yes normocephalic and Yes atraumatic Eyes Conjunctivae: conjunctivae normal Chest Chest palpation & inspection: normal inspection of the chest Resp Effort & Inspection: normal respiratory effort Auscultation: clear to auscultation bilaterally, no crackles, no rhonchi and no wheezes Cardio Rate: regular rate Rhythm: regular rhythm Heart sounds: S1 normal heart sound present and S2 normal heart sound present GI Inspection: Yes normal to inspection Neuro General: No confusion Cranial nerves: Yes Normal hearing present Extrem General: No edema Assessment and Plan Assessment & Plan (1) Preoperative examination: Code(s): Z01.818 - Encounter for other preprocedural examination Plan: Preop labs and EKG ordered. Patient advised to have avoid any blood thinning medications such as aspirin or NSAIDs 1 week prior to procedure. Patient advised to continue on blood pressure medication with small supple water prior to procedure. Hold Fargixa 3 days prior to surgery. Plan Keep scheduled follow up with pcp. Orders: Orders Basic Metabolic Panel Today Z13.1 - Encounter for screening for diabetes mellitus Prothrombin Time INR Today Z01.818 - Encounter for other preprocedural examination Complete Blood Count Auto Diff Today Z13.0 - Encounter for screening for diseases of the blood and blood-forming organs and certain disorders involving the immune mechanism TSH reflex Free T4 Today Z13.29 - Encounter for screening for other suspected endocrine disorder ECG 12 lead EKG Today Z01.818 - Encounter for other preprocedural examination Hemoglobin A1c Today E11.65 - Type 2 diabetes mellitus with hyperglycemia Coding Level of Care Code Est Pt Level 3 (55659) Diagnoses Preoperative examination Z01.818
[2023-06-13 12:51] VITALS: BP 124/82; O2SAT 98; BMI 27.2
== END 2023-06-13 13:59 | disposition home or self-care (01) ==
PROVIDERS: PCP Internal Medicine; Visit Provider Nurse Practitioner Family
DX: Z01.818 Encounter for other preprocedural examination (principal)
CPT/HCPCS: 99213

== ENCOUNTER 2023-06-13 13:21 | Outpatient (REF) | payer OTHER, SELFPAY ==
--- NOTE | 2023-06-13 13:25 | ECG_ITS ---
Test Reason : preop Blood Pressure : / mmHG Vent. Rate : 060 BPM Atrial Rate : 060 BPM P-R Int : 186 ms QRS Dur : 102 ms QT Int : 398 ms P-R-T Axes : 047 015 064 degrees QTc Int : 398 ms Normal sinus rhythm Intra-ventricular conduction delay Nonspecific ST abnormality Inferior leads Abnormal ECG When compared with ECG of 21-DEC-2022 15:14, No significant change was found Referred By: Sofia Person Electronically Signed By:BRANDON MOREIRA MD
[2023-06-13 13:41] LABS: MANUAL DIFF FLAG NO
[2023-06-13 14:34] LABS: Basophils Percent Auto 0.5 % (0-2); Eosinophils Absolute Auto 0.1 X10*3/uL (0.0-0.4); Eosinophils Percent Auto 1.5 % (0-4); Hematocrit 37.6 % (42.0-52.0); Hemoglobin 12.1 g/dl (14.0-18.0); Imm Gran Abs Auto 0.02 X10*3/uL (0.00-0.03); Imm Gran Pct Auto 0.3 % (0.0-0.4); Lymphocytes Absolute Auto 2.5 X10*3/uL (1.2-4.9); Lymphocytes Percent Auto 31.6 % (20-40); Mean Corpuscular HGB Conc 32.2 g/dl (31.0-36.0); Mean Corpuscular Hemoglobin 30.4 pg (27.0-33.0); Mean Corpuscular Volume 94.5 fL (80.0-98.0); Monocytes Absolute Auto 0.5 X10*3/uL (0.1-1.2); Monocytes Percent Auto 6.3 % (2-11); Neutrophils Absolute Auto 4.7 x10*3/uL (2.0-8.3); Neutrophils Percent Auto 59.8 % (45-73); Platelet Count 208 X10*3/uL (160-400); Red Blood Count 3.98 X10*6/uL (4.60-5.80); Red Cell Distribution Width 12.5 % (11.0-16.0); White Blood Count 7.8 X10*3/uL (4.8-10.8)
[2023-06-13 14:38] LABS: INTERNATIONAL NORM RATIO 0.9 (0.9-1.1); Prothrombin Time 11.1 SEC (11.1-13.3)
[2023-06-13 15:07] LABS: Anion Gap 10 (12-20); Blood Urea Nitrogen 47 mg/dL (9-16); Carbon Dioxide 26 mmol/L (22-29); Chloride 104 mmol/L (96-108); Estimated Glomerular Filt Rate 26; Glucose Random 83 mg/dL (60-115); Sodium 135 mmol/L (135-145)
[2023-06-13 15:20] LABS: TSH reflex Free T4 0.89 uIU/mL (0.32-4.0)
== END 2023-06-13 13:22 | disposition home or self-care (01) ==
LOC: HO.LAB 13:21
PROVIDERS: PCP Internal Medicine; Visit Provider Nurse Practitioner Family
DX: Z01.818 Encounter for other preprocedural examination (principal); Z13.29 Encounter for screening for other suspected endocrine disorder; Z13.0 Encounter for screening for diseases of the blood and blood-forming organs and certain disorders involving the immune mechanism
CPT/HCPCS: 36415; 80048; 84443; 85025; 85610; 93005

== ENCOUNTER 2023-06-19 13:10 | Outpatient (AMB) | payer OTHER, SELFPAY ==
[2023-06-19 13:18] VITALS: BMI 26.8
--- NOTE | 2023-06-19 13:18 | MHC.AMNUTRGE ---
Intake VS Expanded 06/19/23 13:18 Height 5 ft 9 in Weight 181 lb 10.574 oz BMI 26.8 Intake Visit Reasons: DM Allergies No Known Allergies Allergy (Unknown, Verified 06/13/23 13:13) U HPI Nutrition Presentation Details Pt presents for MNT for T2DM Pt reports having good appetite, goes to the gym 4-5 x/wk and walks on treadmill for 30 minutes Reports having 3 meals per day B: oatmeal made with water or ham/cheese sand or fast food croissant with egg/ham/hash browns, coffee L Egg sand and or burger and diet soda D: rice/beans chicken and lettuce/tomato, soda food frequency fish : 0-1/wk fruits : 0-1/d dairy: mostly cheese 1-2 /d protein foods: poultry/beef/eggs vegetables: 1 serving/d starches: combination of starchy/non starchy veg etoh:denies smoking--- Most Recent Diabetes Results: Microalb/Creat Ratio 112.8 ug/mg cr 01/07/23 Cholesterol 124 mg/dL 11/13/22 HDL Cholesterol 29 mg/dL 11/13/22 Triglycerides 155 mg/dL 11/13/22 Creatinine 2.63 mg/dL (0.5-1.4) H 06/13/23 Blood Urea Nitrogen 47 mg/dL (9-16) H 06/13/23 Sodium 135 mmol/L (135-145) 06/13/23 Potassium 5.0 mmol/L (3.3-5.1) 06/13/23 Chloride 104 mmol/L (96-108) 06/13/23 Carbon Dioxide 26 mmol/L (22-29) 06/13/23 Calcium 9.0 mg/dL (8.4-10.2) 06/13/23 AST 29 U/L (5-37) 12/21/22 ALT 29 U/L (0-40) 12/21/22 Total Protein 6.5 g/dL (6.5-8.0) 12/21/22 Albumin 4.7 g/dL (3.5-5.0) 01/07/23 [facility] Medical History Overweight (BMI 25.0-29.9) Chronic kidney disease, stage 4 (severe) Prolonged QT interval Hyperkalemia Memory impairment Vitamin D deficiency Hypothyroidism Seizures Anxiety Fatty liver IBS (irritable colon syndrome) GERD (gastroesophageal reflux disease) Obesity (BMI 30-39.9) Schizoaffective disorder Asthma Epilepsy Essential hypertension Pure hypercholesterolemia longterm (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 Type 2 diabetes mellitus with diabetic chronic kidney disease Surgical History H/O colonoscopy No pertinent past surgical history Family History Father No problems noted. 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 Cognitive needs: No Hearing needs: No Vision needs: Yes (glasses) Assessment & Plan Assessment & Plan (1) Type 2 diabetes mellitus with hyperglycemia: Code(s): E11.65 - Type 2 diabetes mellitus with hyperglycemia Qualifiers: Diabetes mellitus penitentiary insulin use: with penitentiary use Qualified Code(s): E11.65 - Type 2 diabetes mellitus with hyperglycemia; 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4 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
== END 2023-06-19 13:45 | disposition home or self-care (01) ==
LOC: HO.ENCR 13:10
PROVIDERS: PCP Internal Medicine; Visit Provider Dietitian, Registered
DX: E11.65 Type 2 diabetes mellitus with hyperglycemia (principal); Z79.4 Long term (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

== ENCOUNTER → 2023-06-19 13:10 | Outpatient (BNVA) | payer OTHER, SELFPAY | PROVIDERS: PCP Internal Medicine; Visit Provider Dietitian, Registered | DX: E11.65 Type 2 diabetes mellitus with hyperglycemia (principal); Z79.4 Long term (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 | CPT/HCPCS: 97803 ==

== ENCOUNTER 2023-09-18 13:12 | Outpatient (AMB) | payer OTHER, SELFPAY ==
[2023-09-18 13:26] VITALS: BMI 27.1
--- NOTE | 2023-09-18 13:26 | A.OFFVIS_ITS ---
Intake VS Expanded 09/18/23 13:26 Height 5 ft 9 in Weight 183 lb 13.848 oz BMI 27.1 Intake Visit Reasons: T2DM/LVM Allergies No Known Allergies Allergy (Unknown, Verified 06/13/23 13:13) U [facility] Nutrition Presentation Details Pt presents for MNT for T2dm Pt reports choosing soft foods, he is in the process to get dentures walks to grocery once a week - 45 minutes Meals consist of B: peanut butter and jelly sand in AM, water L: rice/albert/chicken , water , coke dinner: ramen noodles , coke Pt did not bring glucometer to this appt, reports his blood sugars are in 80- 100s He reports waiting on Trulicity - has not had it for a week. ETOH: denies smoking: denies Most Recent Diabetes Results: Microalb/Creat Ratio 112.8 ug/mg cr 01/07/23 Creatinine 2.63 mg/dL (0.5-1.4) H 06/13/23 Blood Urea Nitrogen 47 mg/dL (9-16) H 06/13/23 Sodium 135 mmol/L (135-145) 06/13/23 Potassium 5.0 mmol/L (3.3-5.1) 06/13/23 Chloride 104 mmol/L (96-108) 06/13/23 Carbon Dioxide 26 mmol/L (22-29) 06/13/23 Calcium 9.0 mg/dL (8.4-10.2) 06/13/23 AST 29 U/L (5-37) 12/21/22 ALT 29 U/L (0-40) 12/21/22 Total Protein 6.5 g/dL (6.5-8.0) 12/21/22 Albumin 4.7 g/dL (3.5-5.0) 01/07/23 [facility] Medical History Overweight (BMI 25.0-29.9) Chronic kidney disease, stage 4 (severe) Prolonged QT interval Hyperkalemia Memory impairment Vitamin D deficiency Hypothyroidism Seizures Anxiety Fatty liver IBS (irritable colon syndrome) GERD (gastroesophageal reflux disease) Obesity (BMI 30-39.9) Schizoaffective disorder Asthma Epilepsy Essential hypertension Pure hypercholesterolemia prison (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 Type 2 diabetes mellitus with diabetic chronic kidney disease Surgical History H/O colonoscopy No pertinent past surgical history Family History Father No problems noted. 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 Cognitive needs: No Hearing needs: No Vision needs: Yes (glasses) Assessment & Plan Assessment & Plan (1) Type 2 diabetes mellitus with hyperglycemia: Code(s): E11.65 - Type 2 diabetes mellitus with hyperglycemia Qualifiers: Diabetes mellitus group home insulin use: with group home use Qualified Code(s): E11.65 - Type 2 diabetes mellitus with hyperglycemia; 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 Plan: wt as of 02/25/23 at 186 lbs , 182 lbs on 06/2023, 184 lbs (09/2023) Review low phosphorus beverages options, Estimated kilocalorie needs as per 25 kcal/kg bw (85 kg): 2100 (40% carb, 30% fats) Estimated protein needs as per 1.0 g/kg BW: 85 g Estimated fluid intake as per 25 mL/kg bw: 2100 ml/d Patient Instructions: Choose puree fruits at least once a day, working on including at least two servings of fruit daily Continue physically active as able Reduce on high salt/processed Choose beverages with less phosphorus (root beer diet or reg/ lemonade ) Coding Level of Care Code Nutr Indiv Subseq (50251) Diagnoses Type 2 diabetes mellitus with hyperglycemia, with long-term current use of insulin E11.65; Z79.4 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
== END 2023-09-18 14:18 | disposition home or self-care (01) ==
PROVIDERS: PCP Internal Medicine; Visit Provider Dietitian, Registered
DX: E11.65 Type 2 diabetes mellitus with hyperglycemia (principal); Z79.4 Long term (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

== ENCOUNTER → 2023-09-18 13:12 | Outpatient (BNVA) | payer OTHER, SELFPAY | PROVIDERS: PCP Internal Medicine; Visit Provider Dietitian, Registered | DX: E11.65 Type 2 diabetes mellitus with hyperglycemia (principal); Z79.4 Long term (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 | CPT/HCPCS: 97803 ==

== ENCOUNTER 2023-11-06 06:37 | Outpatient (REF) | payer OTHER, SELFPAY ==
[2023-11-06 06:51] LABS: MANUAL DIFF FLAG NO
[2023-11-06 07:17] LABS: Basophils Percent Auto 0.8 % (0-2); Eosinophils Absolute Auto 0.1 X10*3/uL (0.0-0.4); Hematocrit 35.2 % (42.0-52.0); Hemoglobin 11.9 g/dl (14.0-18.0); Imm Gran Abs Auto 0.01 X10*3/uL (0.00-0.03); Imm Gran Pct Auto 0.2 % (0.0-0.4); Lymphocytes Absolute Auto 1.4 X10*3/uL (1.2-4.9); Lymphocytes Percent Auto 28.8 % (20-40); Mean Corpuscular HGB Conc 33.8 g/dl (31.0-36.0); Mean Corpuscular Hemoglobin 30.6 pg (27.0-33.0); Mean Corpuscular Volume 90.5 fL (80.0-98.0); Mean Platelet Volume 8.7 fL (9.4-12.4); Monocytes Absolute Auto 0.3 X10*3/uL (0.1-1.2); Neutrophils Percent Auto 61.2 % (45-73); Platelet Count 219 X10*3/uL (160-400); Red Blood Count 3.89 X10*6/uL (4.60-5.80); Red Cell Distribution Width 12.3 % (11.0-16.0); White Blood Count 4.9 X10*3/uL (4.8-10.8)
[2023-11-06 07:47] LABS: Alanine Aminotransferase 61 U/L (0-40); Albumin Level 4.4 g/dL (3.5-5.0); Alkaline Phosphatase 153 U/L (39-117); Anion Gap 11 (12-20); Aspartate Amino Transferase 134 U/L (5-37); Bilirubin Total 0.4 mg/dL (0.0-1.0); Blood Urea Nitrogen 78 mg/dL (9-16); Calcium 9.2 mg/dL (8.4-10.2); Carbon Dioxide 22 mmol/L (22-29); Chloride 105 mmol/L (96-108); Cholesterol 107 mg/dL (<200); Estimated Glomerular Filt Rate 24; Glucose Fasting 97 mg/dL (60-99); HDL Cholesterol 50 mg/dL (>40); LDL Cholesterol Calculated 48 mg/dL (<100); Potassium 4.4 mmol/L (3.3-5.1); Sodium 134 mmol/L (135-145); Total Protein 7.1 g/dL (6.5-8.0); Triglycerides 46 mg/dL (<150)
[2023-11-06 07:54] LABS: Estimated Average Glucose 97 mg/dL
[2023-11-06 07:56] LABS: Parathyroid Hormone Intact 131.5 pg/mL (8.7-77.1)
[2023-11-06 08:00] LABS: Appearance Urine Clear; Color Urine Yellow; Glucose Urine UA 100 mg/dL (Negative); Leukocyte Esterase Urine Negative (Negative); Nitrite Urine Negative (Negative); PH 5.5 (5.0-9.0); Specific Gravity - Urine <= 1.005 (1.005-1.025); UMIC TRIGGER UACC YES; Urine Blood Trace (Negative); Urine Ketones Negative (Negative); Urine Protein Negative (Neg-Trace)
[2023-11-06 08:06] LABS: Free T4 (Free Thyroxine) 0.91 ng/dL (0.71-1.85); TSH reflex Free T4 0.76 uIU/mL (0.32-4.0); Thyroid Stimulating Hormone 0.76 uIU/mL (0.32-4.0); Vitamin D 25-OH Total 64.4 ng/mL (>30)
[2023-11-06 08:19] LABS: Creatinine Urine 12.25 mg/dL; Microalbum/Creatinine Ratio Ur 97.9 ug/mg cr (<30)
[2023-11-06 08:43] LABS: Bacteria Urine None Seen (None Seen); Hyaline Casts Urine 0-2 /LPF (0-2); RBC Urine 0-2 /HPF (0-2); Squamous Epithelial Cell Urine 0-2 /HPF (0-2); WBC Urine 0-5 /HPF (0-5)
== END 2023-11-06 06:38 | disposition home or self-care (01) ==
LOC: HO.LAB 06:37
PROVIDERS: PCP Internal Medicine; Visit Provider Internal Medicine
DX: I10 Essential (primary) hypertension (principal); E55.9 Vitamin D deficiency, unspecified; R30.0 Dysuria; E03.9 Hypothyroidism, unspecified; E11.9 Type 2 diabetes mellitus without complications; E78.00 Pure hypercholesterolemia, unspecified
CPT/HCPCS: 36415; 80053; 80061; 81001; 82043; 82306; 82570; 83036; 83970; 84439; 84443; 85025

== ENCOUNTER 2023-11-18 08:28 | Outpatient (AMB) | payer OTHER, SELFPAY ==
--- NOTE | 2023-11-18 09:00 | A.OFFPC_ITS ---
Vital Signs 11/18/23 09:02 Height 5 ft 9 in Weight 189 lb BMI 27.9 BP 110/72 Blood Pressure Location Lt brachial Position Sitting Pulse 44 L Pulse Source Pulse Oximeter Pulse Oximetry (%) 100 Oxygen Delivery Method Room Air Intake Visit Reasons: Low Blood Sugar/ Dizziness Intake Note: Patient is here to follow up on Low blood sugar, CKD. Rework Machine Operator Required: No Brushing Machine Operator: Not Required per policy Accompanied by: Self / Same As Patient Allergies No Known Allergies Allergy (Unknown, Verified 11/18/23 09:51) U Medication List - Last Reconciled 11/18/23 by Zeb Ca MD albuterol sulfate 90 mcg/actuation (ProAir HFA) 2 puffs inhalation Q6H PRN alcohol swabs 1 pad topical QID aripiprazole 5 mg PO DAILY atorvastatin 10 mg PO BEDTIME blood sugar diagnostic ([employer] Ultra Test strips) As directed once a day blood-glucose meter (GigParkTouch Ultra2 Meter kit) As directed calcium polycarbophil (Fiber (calcium polycarbophil)) 625 mg PO BID PRN dapagliflozin propanediol (Farxiga) 10 mg PO DAILY ergocalciferol (vitamin D2) 1,250 mcg PO QWEEK fluoxetine (Prozac) 20 mg PO DAILY fluticasone propionate 220 mcg/actuation 1 puff PO BID insulin glargine (Lantus Solostar U-100 Insulin) 8 units (0.08 mL) subcut QPM 90 days lamotrigine 200 mg PO BID levothyroxine 125 mcg PO DAILY lisinopril 2.5 mg PO BID lorazepam 0.5 mg PO TID PRN melatonin 5 mg PO BEDTIME olanzapine 5 mg PO BEDTIME omega 1-xjw-sam-fish oil 1,200 (144-216) mg (Fish Oil) 1 cap PO DAILY omeprazole 20 mg PO DAILY pen needle, diabetic (BD Ultra-Fine Leeanne Pen Needle) 1 ea subcut DAILY pen needle, diabetic As directed polyethylene glycol 3350 (Gavilax) 17 grams PO DAILY sildenafil 50 mg PO DAILY PRN tizanidine 4 mg PO TID PRN trazodone 50 mg PO BEDTIME PRN zonisamide 100 mg PO BID Tobacco use date assessed: 11/18/23 Dental Screening Dental Screen Date: 11/18/23 Did you have a dental visit in the last 12 months?: Yes Did you have a dental problem in the last 6 months where you did not have access to dental care?: No Was dental information given to patient?: Patient has dentist HPI Low Blood Sugar/ Dizziness HPI Details Patient comes in today for his follow up visit States that he feels okay Has not been able to get his Trulicity Rx filled (unavailable at the pharmacy) and he has not taken his Trulicity in a while now - is wondering if he even needs to be on it if his blood sugar is still doing well even when he has not been on it lately Also states that he has been drinking some OTC Whey protein supplements for the past few weeks - gets them from his local [employer] store He denies any headaches and states that he has not had any dizzy spells lately Denies any chest pains, no SOB No nausea/vomiting, no abdominal pain No change in bowel habits noted Had his follow up labs done a couple of weeks ago - to discuss his results [facility] Medical History Overweight (BMI 25.0-29.9) Chronic kidney disease, stage 4 (severe) Prolonged QT interval Hyperkalemia Memory impairment Vitamin D deficiency Hypothyroidism Seizures Anxiety Fatty liver IBS (irritable colon syndrome) GERD (gastroesophageal reflux disease) Obesity (BMI 30-39.9) Schizoaffective disorder Asthma Epilepsy Essential hypertension Pure hypercholesterolemia detention (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 Type 2 diabetes mellitus with diabetic chronic kidney disease Surgical History History of dental surgery H/O colonoscopy Family History Father No problems noted. 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 1. Little interest or pleasure in doing things: not at all 2. Feeling down, depressed, or hopeless: not at all 3. Trouble falling or staying asleep, or sleeping too much: not at all 4. Feeling tired or having little energy: not at all 5. Poor appetite or overeating: not at all 6. Feeling bad about yourself - or that you are a failure or have let yourself or your family down: not at all 7. Trouble concentrating on things, such as reading the newspaper or watching television: not at all 8. Moving or speaking so slowly that other people could have noticed. Or the opposite - being so fidgety or restless that you have been moving around a lot more than usual: not at all 9. Thoughts that you would be better off or of hurting yourself in some way: not at all Total score: 0 Depression Screening Interpretation: Negative (is on Rx) Depression Screening Done: Yes 36567 - PHQ-9 Billing: Yes Source: Developed by Drs. Emiliano Ledezma, Ashly Pat, Rohit Tilley and colleagues, with an educational danette from [email or web address]. Thrive Questionnaire Date Thrive assessed: 11/18/23 I am a: Patient What is your living situation today?: I have a steady place to live Within the past 12 months, did the food you bought not last and you didn't have the money to get more?: Never true Within the past 12 months, did you worry whether your food would run out before you got money to buy more?: Never true Do you have trouble paying for medicines?: No Do you have trouble getting transportation to medical appointments?: No Do you have trouble paying your heating and electricity bill?: No Do you have trouble taking care of your child, family member or friend?: No Do you have trouble with day-to-day activities such as bathing, preparing meals, shopping, managing finances, etc.?: No Are you currently unemployed and looking for a job?: No Are you interested in more education?: No Currently or been in a relationship where the following occur: no concerns reported THRIVE Score: 0 AUDIT C Alcohol Use Questionnaire (AUDIT-C) 1. How often do you have a drink containing alcohol?: Never 3. How often do you have six or more drinks on one occasion?: Never Total Score: 0 Score Reviewed/Action Taken: Yes ELEUTERIO-7 AMB Questionnaire ELEUTERIO-7 Date ELEUTERIO - 7 assessed: 11/18/23 Feeling nervous, anxious, or on edge: 0 = Not at all Not being able to stop or control worryin = Not at all Worrying too much about different things: 0 = Not at all Trouble relaxin = Not at all Being so restless that it is hard to sit still: 0 = Not at all Becoming easily annoyed or irritable: 0 = Not at all Feeling afraid as if something awful might happen: 0 = Not at all Total ELEUTERIO-7 score (0-4 normal; 5-9 mild; 10-14 moderate; 15-21 severe): 0 Source: Developed by Drs. Emiliano Ledezma, Ashly Pat, Rohit Tilley and colleagues, with an educational danette from [email or web address]. Review of Systems Const Denies chills, Denies fatigue, Denies fever(s) and Denies headache(s) ENT Denies dysphagia, Denies dizziness, Denies otalgia, Denies headache(s), Denies neck pain, Denies odynophagia and Denies sore throat Card Denies chest pain, Denies palpitations and Denies dyspnea Resp Denies chest congestion, Denies cough, Denies dyspnea and Denies wheezing GI Denies abdominal pain, Denies constipation, Denies dysphagia, Denies heartburn, Denies diarrhea, Denies nausea, Denies odynophagia and Denies vomiting Denies dysuria, Denies nocturia and Denies urinary frequency Musc Reports abnormal gait (unsteady), Denies back pain, Denies arthralgias and Denies neck pain Skin/Breast Denies rash Neuro Reports abnormal gait (unsteady), Denies dizziness and Denies headache(s) Endo Denies fatigue and Denies palpitations Aller/Immun Denies wheezing Physical exam (Primary Care) Vital Signs: Last Vital Signs Pulse 44 L 11/18/23 09:02 BP 110/72 11/18/23 09:02 Pulse Ox 100 11/18/23 09:02 Oxygen Delivery Method Room Air 11/18/23 09:02 BMI result Body Mass Index 27.9 Tobacco/Smoking Status: Tobacco use Status Tobacco use date assessed 11/18/23 11/18/23 09:09 Patient Tobacco Use Status Former Tobacco user 11/18/23 09:09 e-Cigarette/Vaping Use Never Used 11/18/23 09:09 PHQ-9: PHQ-9 Score PHQ-9: Total score 0 11/18/23 09:09 Depression Screening Interpretation: Negative (is on Rx) Thrive Assessment: Date of Thrive Assessment Date Thrive assessed 11/18/23 11/18/23 09:09 Currently or been in a relationship where the following occur: no concerns reported Const General: no acute distress and alert HENMT Ears: TM's normal bilaterally and EAC's normal Throat: Yes posterior oropharynx normal and Yes tonsils normal (no TP congestion noted) Neck Neck: Yes no lymphadenopathy and Yes supple Resp Auscultation: clear to auscultation bilaterally, no rales and no wheezes Cardio Rate: regular rate Rhythm: regular rhythm Heart sounds: no murmurs GI Palpation (GI): Soft to palpation and nontender Auscultation: normal bowel sounds General: Yes no CVA tenderness Back/Spine/Pelvis Back: no CVA tenderness Thoracic/Lumbar Spine: No lumbar spinal tenderness Skin Rashes: no rashes Extrem General: Yes no clubbing, cyanosis or edema Results Reviewed Results Reviewed: Laboratory Tests 11/06/23 11/06/23 06:49 06:50 WBC 4.9 Hgb 11.9 L Hct 35.2 L Plt Count 219 Sodium 134 L Potassium 4.4 Creatinine 2.80 H Estimated GFR 24 Fasting Glucose 97 Hemoglobin A1c % 5.0 Calcium 9.2 AST 134 H ALT 61 H Triglycerides 46 Cholesterol 107 LDL Cholesterol, Calc 48 HDL Cholesterol 50 25-OH Vitamin D Total 64.4 TSH 0.76 Free T4 0.91 PTH Intact 131.5 H Ur Specific [place] <= 1.005 Urine Protein Negative Urine Glucose (UA) 100 H Urine Blood Trace H Urine Nitrite Negative Ur Leukocyte Esterase Negative Microalb/Creat Ratio 97.9 H Assessment and Plan Assessment & Plan (1) Type 2 diabetes mellitus with diabetic chronic kidney disease: Code(s): E11.22 - Type 2 diabetes mellitus with diabetic chronic kidney disease Qualifiers: Diabetes mellitus shelter insulin use: with ferry terminal supervisor use Chronic kidney disease stage: stage 3 (moderate) Chronic kidney disease stage 3 subtype: unspecified whether 3a or 3b Qualified Code(s): E11.22 - Type 2 diabetes mellitus with diabetic chronic kidney disease; N18.30 - Chronic kidney disease, stage 3 unspecified; Z79.4 - detention (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 Plan: His HgbA1c was at 5.0% on his labs done a couple of weeks ago despite him not taking his Trulicity for a while now due to unavailability of his Rx (his in- office HgbA1c was previously at 5.5% last year) - goal is <6.5% Reinforced diabetic diet Continue Lantus 8 units SQ Q HS and Farxiga 10 mg QD (this was started by nephrology more for his CKD) As he has not been on Trulicity for a while now and his blood sugar remains well-controlled, will go ahead and take him off and STOP Trulicity completely Follow up with diabetic carpet cleaner as scheduled (2) Chronic kidney disease, stage 4 (severe): Code(s): N18.4 - Chronic kidney disease, stage 4 (severe) Plan: Renal function appears stable lately Was started additionally on Farxiga 10 mg QD by nephrology last year to help with his kidneys Continue Lisinopril 2.5 mg QD and emphasized again complete avoidance of all NSAIDs and tight control of his BP and blood sugar Follow up with nephrology as scheduled (3) Essential hypertension: Code(s): I10 - Essential (primary) hypertension Plan: Reinforced low-sodium diet -? goal is systolic BP of at least 120 to 130 mm or less Continue Lisinopril 2.5 mg QD (4) Vitamin D deficiency: Code(s): E55.9 - Vitamin D deficiency, unspecified Plan: Continue Vitamin D2 63946 units once a week (5) Pure hypercholesterolemia: Code(s): E78.00 - Pure hypercholesterolemia, unspecified Plan: Results of his labs done a couple of weeks ago reviewed and discussed with patient - his lipids are at goal BUT his LFTs have increased significantly from previous, including his alkaline phosphatase level Will have him HOLD his Atorvastatin 10 mg QD for now Reinforced low cholesterol diet Have also advised him that the Whey proteins that he has been consuming lately may also be contributing to his elevated LFTs so he should stop taking them for now Will have him recheck his labs and fasting lipids in 3 months for follow-up and if his cholesterol numbers go up again, may need to start him on an alternative Tx to Atorvastatin (due to elevated LFTs) (6) Elevated LFTs: Code(s): R79.89 - Other specified abnormal findings of blood chemistry Plan: Have advised patient that his LFTs have increased significantly from previous, including his alkaline phosphatase level Have also advised him that the Whey proteins that he has been consuming lately may also be contributing to his elevated LFTs so he should stop taking them for now; he is also instructed to HOLD his Atorvastatin for now Will have him recheck his LFTs in 1 month for follow up Will send him as well for abdominal US for further evaluation (7) Hypothyroidism: Code(s): E03.9 - Hypothyroidism, unspecified Qualifiers: Hypothyroidism type: acquired Qualified Code(s): E03.9 - Hypothyroidism, unspecified Plan: His TFTs are normal on his recentl labs done a couple of weeks ago Continue Levothyroxine 125 mcg QD (8) Hyperparathyroidism: Code(s): E21.3 - Hyperparathyroidism, unspecified Plan: Patient's intact PTH level has been elevated significantly every time it has been checked over the past couple of years His Vitamin D level is normal on his recent labs, so this is likely primary hyperparathyroidism and he may require surgical correction Will send him for a 24 urine calcium to complete his evaluation and if his resu lts come out consistent with primary hyperparathyroidism, will refer him to endocrinology for further management (9) Asthma: Code(s): J45.909 - Unspecified asthma, uncomplicated Qualifiers: Asthma severity: mild Asthma persistence: intermittent Asthma complication type: uncomplicated Qualified Code(s): J45.20 - Mild intermittent asthma, uncomplicated Plan: Stable - continue Albuterol HFA 2 inhalations up to 4 times a day as needed Follow up with pulmonary as scheduled (10) GERD (gastroesophageal reflux disease): Code(s): K21.9 - Gastro-esophageal reflux disease without esophagitis Qualifiers: Esophagitis presence: without esophagitis Qualified Code(s): K21.9 - Gastro-esophageal reflux disease without esophagitis Plan: Dietary restrictions reinforced Continue Omeprazole 20 mg QD (11) Epilepsy: Code(s): G40.909 - Epilepsy, unspecified, not intractable, without status epilepticus Qualifiers: Epilepsy type: unspecified Intractability: not intractable Status epilepticus: without status epilepticus Qualified Code(s): G40.909 - Epilepsy, unspecified, not intractable, without status epilepticus Plan: EEG done in the past has showed findings consistent with partial complex seizure; states that he has not had any seizures lately Continue Zonisamide 100 mg BID Follow-up with Neurology as scheduled (12) Schizoaffective disorder: Code(s): F25.9 - Schizoaffective disorder, unspecified Qualifiers: Schizoaffective disorder type: unspecified Qualified Code(s): F25.9 - Schizoaffective disorder, unspecified Plan: Continue Lamotrigine 200 mg twice a day, Zyprexa 5 mg daily at bedtime and Lorazepam 0.5 mg 3 times a day as needed Follow-up with Psychiatry as scheduled (13) Overweight (BMI 25.0-29.9): Code(s): E66.3 - Overweight Plan: Reinforced diet/exercise as tolerated/lose weight Plan Follow up in 3 months Orders: Orders US abdomen complete Today R79.89 - Other specified abnormal findings of blood chemistry Complete Blood Count Auto Diff 3 Months D64.9 - Anemia, unspecified Comprehensive [place]. Panel Fast 3 Months E78.00 - Pure hypercholesterolemia, unspecified Microalbumin, Random (w Creat) 3 Months E11.9 - Type 2 diabetes mellitus without complications Free T4 (Free Thyroxine) 3 Months E03.9 - Hypothyroidism, unspecified Vitamin D 25-OH Total 3 Months E55.9 - Vitamin D deficiency, unspecified Liver Panel 1 Month R79.89 - Other specified abnormal findings of blood chemistry Calcium, 24 Hr Ur Today E21.3 - Hyperparathyroidism, unspecified Lipid Panel 3 Months E78.00 - Pure hypercholesterolemia, unspecified UA CC w/rflx Micro + Cult 3 Months R30.0 - Dysuria Thyroid Stimulating Hormone 3 Months E03.9 - Hypothyroidism, unspecified Hemoglobin A1c 3 Months E11.9 - Type 2 diabetes mellitus without complications Coding Level of Care Code Est Pt Level 4 (58474) Diagnoses Type 2 diabetes mellitus with stage 3 chronic kidney disease, with long-term current use of insulin, unspecified whether stage 3a or 3b CKD E11.22; N18.30; Z79.4 Diabetes mellitus shelter insulin use: with ferry terminal supervisor use Chronic kidney disease stage: stage 3 (moderate) Chronic kidney disease stage 3 subtype: unspecified whether 3a or 3b Chronic kidney disease, stage 4 (severe) N18.4 Essential hypertension I10 Vitamin D deficiency E55.9 Pure hypercholesterolemia E78.00 Elevated LFTs R79.89 Acquired hypothyroidism E03.9 Hypothyroidism type: acquired Hyperparathyroidism E21.3 Mild intermittent asthma without complication J45.20 Asthma severity: mild Asthma persistence: intermittent Asthma complication type: uncomplicated Gastroesophageal reflux disease without esophagitis K21.9 Esophagitis presence: without esophagitis Nonintractable epilepsy without status epilepticus, unspecified epilepsy type G40.909 Epilepsy type: unspecified Intractability: not intractable Status epilepticus: without status epilepticus Schizoaffective disorder, unspecified type F25.9 Schizoaffective disorder type: unspecified Overweight (BMI 25.0-29.9) E66.3
[2023-11-18 09:02] VITALS: BP 110/72; PULSE 44; O2SAT 100; BMI 27.9
== END 2023-11-18 09:59 | disposition home or self-care (01) ==
PROVIDERS: PCP Internal Medicine; Visit Provider Internal Medicine
DX: E11.22 Type 2 diabetes mellitus with diabetic chronic kidney disease (principal); N18.30 Chronic kidney disease, stage 3 unspecified; Z79.4 Long term (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; N18.4 Chronic kidney disease, stage 4 (severe); E21.3 Hyperparathyroidism, unspecified; G40.909 Epilepsy, unspecified, not intractable, without status epilepticus; F25.9 Schizoaffective disorder, unspecified; I12.9 Hypertensive chronic kidney disease with stage 1 through stage 4 chronic kidney disease, or unspecified chronic kidney disease; E55.9 Vitamin D deficiency, unspecified; E78.00 Pure hypercholesterolemia, unspecified; R79.89 Other specified abnormal findings of blood chemistry; E03.9 Hypothyroidism, unspecified
CPT/HCPCS: 99214

== ENCOUNTER 2023-11-20 12:41 | Outpatient (AMB) | payer OTHER, SELFPAY ==
[2023-11-20 13:08] VITALS: BP 134/71; PULSE 73; BMI 28.5
--- NOTE | 2023-11-20 13:08 | A.OFFVIS_ITS ---
Vital Signs 11/20/23 13:08 Height 5 ft 9 in Weight 193 lb 1.999 oz BMI 28.5 BP 134/71 Blood Pressure Location Lt brachial Position Sitting Pulse 73 Intake Visit Reasons: 6 mnht follow up Intake Note: Patient here for 6m f/u GERD. Reports condition is stable omeprazole. Patient c/o: not taking Gavilax. Denies diarrhea, constipation. [employer] Required: No Accompanied by: Self / Same As Patient Allergies No Known Allergies Allergy (Unknown, Verified 11/20/23 13:15) U HPI HPI 6 mnht follow up: Details: He has been doing well. He has not yet seen Dr. Knowles to ask about the continuance of the omeprazole 2omg qd. He continues to do well utilizing MiraLax and fiber for his bowel control. He frequently has trouble getting good high fiber food sources because he people is on SSI and has a limited income. His insurance will not cover fiber therapy, but he tries to get store bread raisin bran when he can. He will be having dental surgery and having propofol, so he will be seeing his emotional disabilities teacher for clearance. He has multiple layers to organize including transportation, who he can stay with while recovering form anesthesia. ROV 6 mos. Assessment & Plan (1) GERD (gastroesophageal reflux disease): Code(s): K21.9 - Gastro-esophageal reflux disease without esophagitis Qualifiers: Esophagitis presence: without esophagitis Qualified Code(s): K21.9 - Gastro-esophageal reflux disease without esophagitis (2) Irritable bowel syndrome with both constipation and diarrhea: Code(s): K58.2 - Mixed irritable bowel syndrome Medications: Refilled omeprazole 20 mg PO DAILY 90 caps 2RF K21.9 - Gastro-esophageal reflux disease without esophagitis polyethylene glycol 3350 (Gavilax) 17 grams PO DAILY 510 grams 6RF K58.2 - Mixed irritable bowel syndrome TODAY'S VISIT He has multiple health challenges. He is having severe kidney disease and is working with Dr. Knowles to try to uncover the etiology of this. He will be having a 24 hour urine soon in this necessitate stopping most of his supplements and some of his medications. He also has extremely elevated liver function tests AST greater than ALT but he does not drink alcohol. 03/30/2020 HIS TOTAL BILIRUBIN WAS NORMAL, HIS ALK-PHOS WAS ELEVATED AT 165 IN HIS AST ALT WAS 27/34. I think we should do some extra blood work to see if we can uncover any reversible causes. It is possible that this is in response to poor renal flow. He has not upcoming ultrasound that was ordered by his primary care provider so I will simply add the liver labs. He was doing well with his constipation when he was on his kidney supplements but of course he had to stop them. He also has MiraLax but has not been using it. Again he has to stay off his medications for a while until he gets his urine tests. He has no FHX of liver disease or renal disseae. His emotional disabilities teacher that it was all right to continue on his 20 mg of omeprazole. 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 Cognitive needs: No Hearing needs: No Vision needs: Yes (glasses) Review of Systems Const Denies fatigue, Denies fever(s), Denies night sweats, Denies poor appetite and Denies weight loss Eyes Details: glasses Reports requires corrective lenses ENT Reports Normal hearing present, Denies dental pain, Denies dysphagia, Denies hearing loss, Denies mouth pain, Denies odynophagia, Denies throat swelling, Denies tongue swelling and Reports other (Dentition adequate) Card Reports no additional complaints Resp Reports no additional complaints GI Details: Denies abdominal pain, Denies melena, Denies bloating, Denies hematochezia, Reports constipation, Denies GI cramping, Denies dysphagia, Denies excessive flatus, Denies early satiety, Denies heartburn, Denies diarrhea, Denies nausea, Denies odynophagia, Denies vomiting and Denies hematemesis Skin/Breast Denies pruritus, Denies lesions, Denies rash and Denies jaundice Neuro Reports Normal hearing present and Denies Abnormal speech present Endo Denies fatigue Aller/Immun Denies throat swelling and Denies tongue swelling Physical Exam Vital Signs: Last Vital Signs Pulse 73 11/20/23 13:08 BP 134/71 11/20/23 13:08 BMI result Body Mass Index 28.5 Const General: cooperative, no acute distress, well developed and well groomed Nutritional Appearance: average body habitus and well nourished Orientation/consciousness: oriented to person, oriented to place and oriented to time Limitations: No language barrier HEENT Head: Yes normocephalic and Yes atraumatic Eyes General: appearance normal, both eyes and all related structures Pupils: Equal, round and reactive pupils present Neck Neck: Yes normal visual inspection and Yes no lymphadenopathy Thyroid: Thyroid normal Resp Effort & Inspection: normal respiratory effort and able to speak in complete sentences Auscultation: clear to auscultation bilaterally Cardio Rate: regular rate Rhythm: regular rhythm Heart sounds: Normal, physiologic split S2 sound present Peripheral pulses: radial pulses present and posterior tibial pulses present GI Inspection: No distended and No Abdominal panniculus present Palpation (GI): Soft to palpation, nontender, no guarding, not rigid and No hepatosplenomegaly present Percussion: Yes normal to percussion Auscultation: normal bowel sounds Rectal Exam - Male: Yes deferred Skin General skin exam: no rashes or lesions noted, turgor normal, skin not dry, no jaundice, No spider nevi and no striae Rashes: no rashes Nails: normal Neuro General: oriented to person, oriented to place and oriented to time Cranial nerves: Yes Equal, round and reactive pupils present and Yes Normal hearing present Speech: No Abnormal speech present Extrem General: Yes normal to inspection, No clubbing, No cyanosis and No edema Psych Appearance: grossly normal and well kempt Mental Status: mental status grossly normal Speech and movement: Normal speech and movement present Affect: normal affect Attitude: cooperative Thought process: Normal thought process present and not confabulating Thought content: Normal thought content present Insight: Limited insight present (Psych) Judgement: Limited judgement present (Psych) Results Reviewed Results Reviewed: Laboratory Tests 11/06/23 06:50 WBC 4.9 RBC 3.89 L Hgb 11.9 L Hct 35.2 L MCV 90.5 MCH 30.6 Plt Count 219 Estimated GFR 24 Total Bilirubin 0.4 AST 134 H ALT 61 H Alkaline Phosphatase 153 H TSH 0.76 PTH Intact 131.5 H His Cologuard test was negative so repeat this in 3 years Assessment & Plan Assessment & Plan (1) Elevated LFTs: Comment: BASELINE LABS;: 03/30/2020 total bili 0.4, alk-phos is 165, AST/ALT is 27/34 11/20/23 06:50 WBC 4.9 RBC 3.89 L Hgb 11.9 L Hct 35.2 L MCV 90.5 MCH 30.6 Plt Count 219 Estimated GFR 24 Total Bilirubin 0.4 AST 134 H ALT 61 H Alkaline Phosphatase 153 H TSH 0.76 PTH Intact 131.5 H CURRENT LABS ULTRASOUND OF THE ABDOMEN Code(s): R79.89 - Other specified abnormal findings of blood chemistry Category: Medical (2) Chronic kidney disease, stage 3: Code(s): N18.30 - Chronic kidney disease, stage 3 unspecified Category: Medical Qualifiers: Chronic kidney disease stage 3 subtype: unspecified whether 3a or 3b Qualified Code(s): N18.30 - Chronic kidney disease, stage 3 unspecified (3) Colon cancer screening: Comment: 11/2023= negative Cologuard repeat in 3 years; 2020 scope negative repeat 10 years Code(s): Z12.11 - Encounter for screening for malignant neoplasm of colon Category: Medical Plan He has multiple health challenges. He is having severe kidney disease and is working with Dr. Knowles to try to uncover the etiology of this. He will be having a 24 hour urine soon in this necessitate stopping most of his supplements and some of his medications. He also has extremely elevated liver function tests AST greater than ALT but he does not drink alcohol. 03/30/2020 HIS TOTAL BILIRUBIN WAS NORMAL, HIS ALK-PHOS WAS ELEVATED AT 165 IN HIS AST ALT WAS 27/34. I think we should do some extra blood work to see if we can uncover any reversible causes. It is possible that this is in response to poor renal flow. He has not upcoming ultrasound that was ordered by his primary care provider so I will simply add the liver labs. He was doing well with his constipation when he was on his kidney supplements but of course he had to stop them. He also has MiraLax but has not been using it. Again he has to stay off his medications for a while until he gets his urine tests. He has no FHX of liver disease or renal disease. His emotional disabilities teacher that it was all right to continue on his 20 mg of omeprazole. Return office visit 4 weeks Orders: Orders HIV Ab/Ag Today N18.30 - Chronic kidney disease, stage 3 unspecified, R79.89 - Other specified abnormal findings of blood chemistry Smooth Muscle Antibody Today N18.30 - Chronic kidney disease, stage 3 unspecified, R79.89 - Other specified abnormal findings of blood chemistry Ferritin Today N18.30 - Chronic kidney disease, stage 3 unspecified, R79.89 - Other specified abnormal findings of blood chemistry Liver Fibrosis Pnl Today N18.30 - Chronic kidney disease, stage 3 unspecified, R79.89 - Other specified abnormal findings of blood chemistry Alpha Fetoprotein Today N18.30 - Chronic kidney disease, stage 3 unspecified, R79.89 - Other specified abnormal findings of blood chemistry MONSE Reflex Titer and Pattern Today R79.89 - Other specified abnormal findings of blood chemistry Hepatitis A,B,C Profile Today N18.30 - Chronic kidney disease, stage 3 unspecified, R79.89 - Other specified abnormal findings of blood chemistry Gamma Glutamyl Transpeptidase Today N18.30 - Chronic kidney disease, stage 3 unspecified, R79.89 - Other specified abnormal findings of blood chemistry Mitochondrial Antibody Today N18.30 - Chronic kidney disease, stage 3 u nspecified, R79.89 - Other specified abnormal findings of blood chemistry Medications: On Hold atorvastatin Hold Comment: Doctor's Order 10 mg PO BEDTIME 90 tabs 1RF
== END 2023-11-20 13:46 | disposition home or self-care (01) ==
PROVIDERS: PCP Internal Medicine; Visit Provider Nurse Practitioner
DX: R79.89 Other specified abnormal findings of blood chemistry (principal); N18.30 Chronic kidney disease, stage 3 unspecified; Z12.11 Encounter for screening for malignant neoplasm of colon
CPT/HCPCS: 99214

== ENCOUNTER 2023-11-20 12:41 | Outpatient (REF) | payer OTHER, SELFPAY ==
[2023-11-20 15:11] LABS: Ferritin 19 ng/mL (20-250); Gamma Glutamyl Transpeptidase 34 U/L (11-51)
[2023-11-21 07:35] LABS: HBS Num1 2.24 mIU/mL (0-7.99); HBc Num1 0.08 S/CO (0.00-0.79); HBsAGNum1 0.36 S/CO (0.00-0.99); HIV AB/AG Nonreactive (Nonreactive); HIV Num 1 0.14 S/CO (0.00-0.99); Hepatitis A Antibody IgM 0.13 Index (0-0.79); Hepatitis B Core Antibody Nonreactive (Nonreactive); Hepatitis B Surface Antigen Negative (Negative); ~HepC Num1 0.06 S/CO (0.00-0.79); ~Hepatitis A Antibody IgM Nonreactive (Nonreactive); ~Hepatitis B Surface Antibody NONREACTIVE (Nonreactive); ~Hepatitis C Antibody Nonreactive (Nonreactive)
[2023-11-22 18:19] LABS: Anti Nuclear Antibody Screen NEGATIVE (NEGATIVE)
[2023-11-24 13:02] LABS: Alpha Fetoprotein 0.5 ng/mL (<6.1)
[2023-11-24 13:18] LABS: Mitochondrial Antibodies NEGATIVE (NEGATIVE)
[2023-11-25 13:57] LABS: Smooth Muscle Antibody <20 U (<20)
[2023-11-27 18:14] LABS: FIB-ALT 25 U/L (9-46); FIB-Alpha-2-Macroglobulin 218 mg/dL (106-279); FIB-Apolipoprotein A1 138 mg/dL (94-176); FIB-GGT 28 U/L (3-95); FIB-Haptoglobin 118 mg/dL (43-212); FIB-Total Bilirubin 0.3 mg/dL (0.2-1.2); Liver Fibrosis Score 0.22; Liver Fibrosis Stage F0-F1; Nec Inflam Act Grade A0
== END 2023-11-20 12:42 | disposition home or self-care (01) ==
LOC: HO.LAB 12:41
PROVIDERS: PCP Internal Medicine; Visit Provider Nurse Practitioner
DX: Z11.4 Encounter for screening for human immunodeficiency virus [HIV] (principal); R79.89 Other specified abnormal findings of blood chemistry; N18.30 Chronic kidney disease, stage 3 unspecified
CPT/HCPCS: 36415; 81596; 82105; 82728; 82977; 86015; 86038; 86381; 86704; 86706; 86709; 86803; 87340; 87389; 99212

== ENCOUNTER 2023-11-28 09:40 | Outpatient (REF) | payer OTHER, SELFPAY ==
--- NOTE | ~2023-11-28 | US_ITS ---
EXAMINATION: US ABDOMEN COMPLETE CLINICAL INFORMATION: Elevated LFTs. COMPARISON: None available. TECHNIQUE: Real-time imaging of the abdominal viscera. FINDINGS: PANCREAS: Normal. ABDOMINAL AORTA: The proximal and distal segments are normal in caliber. The mid aorta is obscured by bowel gas. INFERIOR VENA CAVA: Visualized portions are normal. LIVER: The liver is normal in size. The liver contour is normal. There is mildly increased liver parenchymal echogenicity suggesting hepatic steatosis. No focal hepatic lesion. There is no intrahepatic biliary duct dilatation seen. GALLBLADDER: At least one gallbladder polyp is noted measuring 2 x 2 by 4 mm. There is a question of an area of calcification in the wall of the gallbladder. The gallbladder is otherwise unremarkable, physiologically distended without evidence of stones, sludge, wall thickening or pericholecystic fluid. COMMON BILE DUCT: Normal in caliber measuring 0.4 cm in diameter. RIGHT KIDNEY: The kidney is grossly abnormal, replaced by innumerable cysts enlarged at 18.5 cm. Findings are consistent with autosomal dominant polycystic kidney disease. Multiple echogenic foci seen, the largest measuring 6 mm, which may represent nonobstructing stones. Difficult to assess for hydronephrosis, although no gross hydronephrosis is present. No definite solid renal masses are seen. LEFT KIDNEY: The kidney is grossly abnormal, replaced by innumerable cysts in the enlarged at 17.0 cm. Findings are consistent with autosomal dominant polycystic kidney disease. Multiple echogenic foci seen, the largest measuring 4 mm, which may represent nonobstructing stones. Difficult to assess for hydronephrosis, although no gross hydronephrosis is present. No definite solid renal masses are seen. SPLEEN: Normal. The spleen measures 10.8 cm in maximum dimension. FREE FLUID: None. BLADDER: Limited evaluation of the bladder demonstrates bilateral ureteral jets. US/US abdomen complete IMPRESSION: 1. Enlarged kidneys replaced by innumerable cysts consistent with autosomal dominant polycystic kidney disease. 2. Bilateral nonobstructing renal calculi. 3. Gallbladder polyp. 4. Hepatic steatosis.
== END 2023-11-28 09:41 | disposition home or self-care (01) ==
LOC: HO.US 09:40
PROVIDERS: PCP Internal Medicine; Visit Provider Internal Medicine
DX: Z13.89 Encounter for screening for other disorder (principal)
CPT/HCPCS: 76700

== ENCOUNTER 2023-11-28 13:03 | Outpatient (AMB) | payer OTHER, SELFPAY ==
[2023-11-28 13:07] VITALS: BP 110/68; PULSE 65; TEMP 36.6; O2SAT 98; BMI 27.3
--- NOTE | 2023-11-28 13:07 | AM.OFFWIN_ITS ---
Intake Vital Signs 11/28/23 13:07 Height 5 ft 9 in Weight 185 lb BMI 27.3 BP 110/68 Blood Pressure Location Lt brachial Position Sitting Pulse 65 Pulse Source Pulse Oximeter Temp 97.8 F Temp Source Temporal Artery Scan Pulse Oximetry (%) 98 Oxygen Delivery Method Room Air Intake Visit Reasons: EP Back pain Intake Note: pt is here today for back pain started 3 months ago Patient Tobacco Use Status: Former Tobacco user Allergies No Known Allergies Allergy (Unknown, Verified 11/28/23 13:15) U Do you need a note to return to daycare/school/sports/work: No HPI EP Back pain HPI Details Patient presents today with right sided mid-back pain for the past 3 months. Denies any injury, trauma, or inciting event to pain. Reports a stabbing pain which is present all the time. He states it is worse with bending. Denies any radiation down legs. Denies any leg weakness or numbness. Has tried muscle relaxers and tylenol without benefit. [facility] Medical History Overweight (BMI 25.0-29.9) Chronic kidney disease, stage 4 (severe) Prolonged QT interval Hyperkalemia Memory impairment Vitamin D deficiency Hypothyroidism Seizures Anxiety Fatty liver IBS (irritable colon syndrome) GERD (gastroesophageal reflux disease) Obesity (BMI 30-39.9) Schizoaffective disorder Asthma Epilepsy Essential hypertension Pure hypercholesterolemia [facility] (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 Type 2 diabetes mellitus with diabetic chronic kidney disease Surgical History History of dental surgery H/O colonoscopy Family History Father No problems noted. 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 Cognitive needs: No Hearing needs: No Vision needs: Yes (glasses) Review of Systems Const All systems reviewed & are unremarkable except as noted in HPI and below Physical Exam Vital Signs: Last Vital Signs Temp 97.8 F 11/28/23 13:07 Pulse 65 11/28/23 13:07 BP 110/68 11/28/23 13:07 Pulse Ox 98 11/28/23 13:07 Oxygen Delivery Method Room Air 11/28/23 13:07 BMI result Body Mass Index 27.3 Const General: cooperative and healthy appearing HEENT Head: Yes normal to inspection Resp Effort & Inspection: normal respiratory effort Cardio Rate: regular rate Rhythm: regular rhythm General: Yes no CVA tenderness Back/Spine/Pelvis Back: no CVA tenderness Cervical Spine: normal cervical lordosis and cervical ROM normal Thoracic/Lumbar Spine: thoracic and lumbar spine normal to inspection, straight leg raise negative bilaterally, pain with thoraco-lumbar ROM (no vertebral ttp, pain with flexion, side bending), paraspinal muscle tenderness on the right in the mid thoracic and in the lower thoracic and thoraco-lumbar spasm on the right in the mid thoracic and in the lower thoracic Skin General skin exam: no rashes or lesions noted Extrem General: Yes capillary refill normal and Yes no clubbing, cyanosis or edema Psych Appearance: grossly normal Mental Status: mental status grossly normal Speech and movement: Normal speech and movement present Assessment & Plan Assessment & Plan (1) Thoracic back pain: Code(s): M54.6 - Pain in thoracic spine Qualifiers: Back pain laterality: right Chronicity: acute Qualified Code(s): M54.6 - Pain in thoracic spine Plan: Patient has primarily right sided thoracic back pain. He previously had a lumbar XR ordered by PCP Dr. Ca. I have also ordered a thoracic spine XR. He is having both done today. He does have some significant muscle tautness/spasms in that mid-lower right thoracic region. I considered starting him on Cyclobenzaprine as he has not had any benefit from Tizanidine, however he has some elevated LFTs and so I will hold off on this. I will prescribe him Lidocaine patches, though we discussed these may not be covered by insurance. We reviewed indications and use of these. He cannot take NSAIDs/prednisone due to CKD. I advised he continue Tylenol, heat application, and some gentle stretching. I will await XR results and will discuss with patient once these are available. He may benefit from a course of PT. He agrees with plan. XR L-spine: 1. No acute compression deformity or subluxation. 2. Stable lumbar spondylosis leading to some degree of neural foraminal encroachment from L4 through S1. 3. Stable very prominent osteophytes in the upper lumbar spine. XR T-spine: Prominent multilevel endplate osteophytes with bridging osteophytes are present throughout the thoracic spine, similar to the prior examination. No acute osseous abnormality. Orders: Orders XR thoracic spine 2V Today M54.6 - Pain in thoracic spine Medications: New lidocaine 5% leave on most painful area for up to 12 hrs 2 patches topical DAILY 30 ea 0RF M54.6 - Pain in thoracic spine Coding Level of Care Code Est Pt Level 4 (46661) Diagnoses Acute right-sided thoracic back pain M54.6 Back pain laterality: right Chronicity: acute
== END 2023-11-28 14:14 | disposition home or self-care (01) ==
PROVIDERS: PCP Internal Medicine; Visit Provider Nurse Practitioner Family
DX: M54.6 Pain in thoracic spine (principal)
CPT/HCPCS: 99214

== ENCOUNTER 2023-11-28 13:31 | Outpatient (REF) | payer OTHER, SELFPAY ==
--- NOTE | ~2023-11-28 | XR_ITS ---
EXAMINATION: XR THORACOLUMBAR SPINE CLINICAL INFORMATION: Pain in thoracic spine. COMPARISON: Thoracic spine radiographs dated 11/30/2018. TECHNIQUE: 2 radiographs of the thoracic spine were performed. FINDINGS: Spinal alignment is anatomic in the sagittal projection. Vertebral body heights are preserved. Intervertebral disc space heights are preserved. There are prominent multilevel endplate osteophytes with bridging osteophytes present. The appearance is similar to the prior examination dated 11/30/2018. There is no acute fracture or subluxation. The visualized lungs are clear. The heart is normal in size. XR/XR thoracic spine 2V IMPRESSION: Prominent multilevel endplate osteophytes with bridging osteophytes are present throughout the thoracic spine, similar to the prior examination. No acute osseous abnormality.
--- NOTE | ~2023-11-28 | XR_ITS ---
EXAMINATION: XR LUMBOSACRAL SPINE CLINICAL INFORMATION: Low back pain. COMPARISON: Radiograph lumbar spine 11/30/2018. TECHNIQUE: Three views of the lumbosacral spine. FINDINGS: No evidence of acute compression deformity or subluxation. Unchanged very prominent osteophytes at L1-L2 and L2-L3. Stable multilevel spondylosis with intervertebral disc height loss and facet arthropathy leading to some degree of neural foraminal osseous encroachment from L4 through S1. Symmetric SI joints. No significant paraspinal soft tissue abnormality. XR/XR lumbar spine 2-3V IMPRESSION: 1. No acute compression deformity or subluxation. 2. Stable lumbar spondylosis leading to some degree of neural foraminal encroachment from L4 through S1. 3. Stable very prominent osteophytes in the upper lumbar spine.
== END 2023-11-28 13:32 | disposition home or self-care (01) ==
LOC: HO.HMGCX 13:31
PROVIDERS: PCP Internal Medicine; Visit Provider Nurse Practitioner Family
DX: M54.6 Pain in thoracic spine (principal); M54.50 Low back pain, unspecified; R79.89 Other specified abnormal findings of blood chemistry
CPT/HCPCS: 72070; 72100; 76700

== ENCOUNTER 2023-12-06 00:11 | Emergency (ER) | payer OTHER, SELFPAY ==
--- NOTE | 2023-12-06 | ECG_ITS ---
Test Reason : CHEST PAIN Blood Pressure : / mmHG Vent. Rate : 058 BPM Atrial Rate : 058 BPM P-R Int : 180 ms QRS Dur : 102 ms QT Int : 428 ms P-R-T Axes : 076 009 062 degrees QTc Int : 420 ms Sinus bradycardia Otherwise normal ECG When compared with ECG of 13-JUN-2023 13:22, No significant change was found Referred By: Jose Montelongo Electronically Signed By:MARY BEVERLY
--- NOTE | 2023-12-06 00:28 | ED_ITS ---
HPI - Chest Pain General Chief Complaint: Chest Pain Stated Complaint: chest pain Time Seen by Provider: 12/06/23 00:13 Source: patient and EMS Mode of arrival: EMS Limitations: no limitations History of Present Illness HPI narrative: 53-year-old male with a history of stage 4 chronic kidney disease, hypothyroidism, seizures, anxiety, GERD, schizoaffective disorder, asthma, hypertension, hypercholesterolemia, diabetes mellitus who presents emergency department for evaluation back pain and chest pain. Patient states he has been having mid to upper back pain x3 months. Patient denies any injury. He states that the pain has gotten worse over the past 2-3 weeks. Patient was seen by his PCP and was also seen in the urgent care clinic on 11/28/2023 for his back pain. He had x-rays of both his thoracic and lumbar spine. Radiology readings below: Thoracic spine radiology impression: Prominent multilevel endplate osteophytes with bridging osteophytes are present throughout the thoracic spine, similar to the prior examination. No acute osseous abnormality. Lumbar spine radiology impression: No acute compression deformity or subluxation. Stable lumbar spondylosis leading to some degree of neural foraminal encroachment from L4 through S1. Stable very prominent osteophytes in the upper lumbar spine. Patient states that he was prescribed medications but there were not available at the pharmacy. He states that his pain is gotten progressively worse. He states this evening he developed pain in his chest that radiated to his back. He describes the pain as a sharp pain which is constant, worse with movement. He denied fever, chills, cough, shortness of breath. The pain did not radiate to his neck, jaw or arms. He states the pain was 10/10 so called an ambulance and was brought to emergency department for evaluation. Related Data Home Medications ?Medication ?Instructions ?Recorded ?Confirmed albuterol sulfate 90 mcg/actuation 2 puff inhalation Q6H PRN Wheezing 05/08/20 11/18/23 aerosol inhaler (ProAir HFA) lamotrigine 200 mg tablet 200 mg PO BID 05/08/20 11/18/23 lorazepam 0.5 mg tablet 0.5 mg PO TID PRN Anxiety 05/08/20 11/18/23 trazodone 50 mg tablet 50 mg PO BEDTIME PRN Insomnia 05/08/20 11/18/23 zonisamide 100 mg capsule 100 mg PO BID 05/08/20 11/18/23 pen needle, diabetic 32 gauge x #50 ea 07/25/20 11/18/23 olanzapine 5 mg tablet 5 mg PO BEDTIME 08/16/21 11/18/23 aripiprazole 5 mg tablet 5 mg PO DAILY 12/03/21 11/18/23 dapagliflozin propanediol 10 mg 10 mg PO DAILY 07/30/22 11/18/23 tablet (Farxiga) melatonin 5 mg tablet 5 mg PO BEDTIME 10/16/22 11/18/23 fluoxetine 20 mg capsule (Prozac) 20 mg PO DAILY 06/13/23 11/18/23 Previous Rx's ?Medication ?Instructions ?Recorded sildenafil 50 mg tablet 50 mg PO DAILY PRN sexual activity 02/08/22 #5 tabs insulin glargine 100 unit/mL (3 8 unit (0.08 mL) subcut QPM 90 04/15/23 mL) subcutaneous pen ([employer] days #12 mL Solostar U-100 Insulin) levothyroxine 125 mcg tablet 125 mcg PO DAILY #90 tabs 05/15/23 omeprazole 20 mg capsule,delayed 20 mg PO DAILY #90 caps 05/22/23 release calcium polycarbophil 625 mg 625 mg PO BID PRN for constipation 05/30/23 tablet (Fiber (calcium #60 tabs polycarbophil)) alcohol swabs 1 pad topical QID #200 ea 07/16/23 blood sugar diagnostic (OneTouch #100 ea 07/16/23 Ultra Test strips) blood-glucose meter (OneTouch #1 ea 07/16/23 Ultra2 Meter kit) ergocalciferol (vitamin D2) 1,250 1,250 mcg PO QWEEK #12 caps 07/16/23 mcg (50,000 unit) capsule omega 8-hox-fvd-fish oil 1,200 mg 1 cap PO DAILY #90 caps 07/26/23 (144 mg-216 mg) capsule (Fish Oil) atorvastatin 10 mg tablet 10 mg PO BEDTIME #90 tabs 07/30/23 pen needle, diabetic 32 gauge x 1 ea subcut DAILY #100 ea 10/25/23 (BD Ultra-Fine Leeanne Pen Needle) fluticasone propionate 220 1 puff PO BID #36 grams 10/27/23 mcg/actuation HFA aerosol inhaler lisinopril 2.5 mg tablet 2.5 mg PO BID #180 tabs 10/28/23 bisacodyl 5 mg tablet,delayed 10 mg (2 x 5 mg) PO BEDTIME 30 11/27/23 release (Dulcolax (bisacodyl)) days #60 tabs lidocaine 5 % topical patch 2 patch topical DAILY #30 ea 11/28/23 tizanidine 4 mg tablet 4 mg PO TID PRN for muscle spasm 12/01/23 #90 tabs acetaminophen 500 mg tablet 500 mg PO Q6H PRN fever or pain 12/06/23 (Tylenol Extra Strength) #30 tabs cyclobenzaprine 10 mg tablet 10 mg PO TID PRN muscle pain or 12/06/23 spasm #20 tabs morphine 15 mg immediate release 15 mg PO Q6H PRN pain #10 tabs 12/06/23 tablet Allergies Allergy/AdvReac Type Severity Reaction Status Date / Time No Known Allergies Allergy Unknown U Verified 12/06/23 01:26 [facility] Past Medical History [facility] Narrative: Social history: Patient denies tobacco use. He states he has a former smoker. He denies alcohol use. He denies drug use. Medical History Overweight (BMI 25.0-29.9) Chronic kidney disease, stage 4 (severe) Prolonged QT interval Hyperkalemia Memory impairment Vitamin D deficiency Hypothyroidism Seizures Anxiety Fatty liver IBS (irritable colon syndrome) GERD (gastroesophageal reflux disease) Obesity (BMI 30-39.9) Schizoaffective disorder Asthma Epilepsy Essential hypertension Pure hypercholesterolemia custodial (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 Type 2 diabetes mellitus with diabetic chronic kidney disease Surgical History History of dental surgery H/O colonoscopy Family History Family History Father No problems noted. 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 Head: Normocephalic, atraumatic EENT: PERRL, Lids normal, sclera normal, conjunctiva normal, nose normal , ears normal, throat without erythema or exudates Neck: Supple, no adenopathy Lung: breath sounds symmetric, no wheezing, rales or rhonchi Chest: symmetric movement, nontender Heart: regular rate and rhythm, normal S1, S2 no murmurs or rubs Abdomen: soft, non-tender, nondistended, normal bowel sounds Back: Patient has tenderness palpation of his thoracic and lumbar vertebrae as well as tenderness palpation of the paraspinal muscles bilaterally and the thoracic and lumbar sacral areas. Extremities: no deformities, moves all extremities symmetrically Neuro: Awake, alert, oriented, normal speech, cranial nerves intact, moves all extremities symmetrically Psych: Pleasant, cooperative Medications Administered Discontinued Medications Generic Name Dose Route Start Last Admin Trade Name Freq PRN Reason Stop Dose Admin Sodium Chloride 1,000 mls @ 999 mls/hr 12/06/23 00:29 12/06/23 01:10 Ns IV 12/06/23 01:29 999 mls/hr .Q1H1M STA Administration Morphine Sulfate 4 mg 12/06/23 00:29 12/06/23 01:10 Morphine Sulfate 4 Mg/Ml Cartridge IVPUSH 12/06/23 00:30 4 mg ONCE STA Administration Protocol Ondansetron HCl 4 mg 12/06/23 00:29 12/06/23 01:10 Ondansetron Hcl 4 Mg/2 Ml Vial IVPUSH 12/06/23 00:30 4 mg ONCE ONE Administration Medical Decision Making Medical Decision Making [facility] Narrative: 53-year-old male with a history of stage 4 chronic kidney disease, hypothyroidism, seizures, anxiety, GERD, schizoaffective disorder, asthma, hypertension, hypercholesterolemia, diabetes mellitus who presents emergency department for evaluation back pain and chest pain. Patient has been experiencing thoracic and lumbar back pain for 3 months, worse over the last 2-3 weeks. Patient had x-rays of his thoracic and lumbar spine which were consistent with degenerative joint disease. Patient developed chest pain today which was new, worse with movement, 10/10. Patient's exam did reveal tenderness with palpation of his thoracic and lumbar spine vertebrae and paraspinal thoracic and lumbar sacral muscles. Differential diagnosis: ?Includes but is not limited to myocardial ischemia, myocardial infarction, thoracic and lumbar muscles sprain, degenerative joint disease, anemia, electrolyte abnormalities Following evaluation was ordered: CBC, CMP, CRP, ESR, PTT, lipase, troponin, EKG Patient was initially treated with the following: Morphine 4 mg IV, Zofran 4 mg IV, normal saline x1 L Course: 02:05 My independent interpretation patient's laboratory evaluation is as follows: WBC was normal 7200. Anemia with an H&H of 11.4 and 35.6-this is chronic. PTT was normal. Chloride high 115, bicarb low at 17, BUN and creatinine elevated 53 and 3.5 above baseline. GFR was 18 compared to a GFR of 24 on 11/06/2023. ESR was normal at 5. CRP was normal 0.27. High sensitive troponin I was detectable but not elevated at 3.0. Repeat troponin is due at 04:00 hours At this time I do not think that the patient has an infectious process is the cause of his back pain. Patient's elevated BUN creatinine and decreased GFR most likely related to dehydration/volume depletion. I ordered a 2 L of normal saline IV. Patient states that he got minimal improvement of his pain with his 1st dose of morphine. I ordered morphine 4 mg IV Q 20 minutes p.r.n. severe pain 7-10. Admission/Observation Consideration of admission/observation: Escalation of care including admission/observation considered Lab Data [facility] Lab Attestation statement: I reviewed the patient's lab results. 12/06/23 01:07 12/06/23 01:09 Labs: Lab Results 12/06/23 12/06/23 Range/Units 01:07 01:09 WBC 7.2 (4.8-10.8) X10*3/uL RBC 3.78 L (4.60-5.80) X10*6/uL Hgb 11.7 L (14.0-18.0) g/dl Hct 35.6 L (42.0-52.0) % MCV 94.2 (80.0-98.0) fL MCH 31.0 (27.0-33.0) pg MCHC 32.9 (31.0-36.0) g/dl RDW 12.5 (11.0-16.0) % Plt Count 208 (160-400) X10*3/uL MPV 9.0 L (9.4-12.4) fL Immature Gran % (Auto) 0.3 (0.0-0.4) % Neut % (Auto) 65.1 (45-73) % Lymph % (Auto) 26.1 (20-40) % [place] % (Auto) 6.9 (2-11) % Eos % (Auto) 1.2 (0-4) % Baso % (Auto) 0.4 (0-2) % Lymph # (Auto) 1.9 (1.2-4.9) X10*3/uL [place] # (Auto) 0.5 (0.1-1.2) X10*3/uL Eos # (Auto) 0.1 (0.0-0.4) X10*3/uL Baso # (Auto) 0.0 (0.0-0.2) X10*3/uL Abs Immat Gran (auto) 0.02 (0.00-0.03) X10*3/uL Absolute Neuts (auto) 4.7 (2.0-8.3) x10*3/uL Absolute Nucleated RBC 0.000 (0.0-0.012) X10*3/uL Nucleated RBC % (auto) 0.0 (0.0-0.2) /100WBC ESR 5 (0-15) MM/HR APTT 32.5 (26.0-36.8) SEC Sodium 142 (135-145) mmol/L Potassium 4.4 (3.3-5.1) mmol/L Chloride 115 H (96-108) mmol/L Carbon Dioxide 17 L (22-29) mmol/L Anion Gap 14 (12-20) BUN 53 H (9-16) mg/dL Creatinine 3.52 H (0.5-1.4) mg/dL Estim Creat Clear Calc 23.5 Estimated GFR 18 Random Glucose 96 (60-115) mg/dL Calcium 8.1 L D (8.4-10.2) mg/dL Total Bilirubin 0.2 (0.0-1.0) mg/dL AST 17 (5-37) U/L ALT 15 (0-40) U/L Alkaline Phosphatase 137 H (39-117) U/L Troponin I High Sens 3.0 D (<3.5-35.0) ng/L C-Reactive Protein 0.27 (< or = 0.50) mg/dL Total Protein 6.2 L (6.5-8.0) g/dL Albumin 3.8 (3.5-5.0) g/dL Lipase 65 (8-78) U/L Independent Interpretation I performed an independent interpretation of an: EKG Interpretation: My interpretation patient's 12 EKG done at 00:16 hours is as follows: Sinus bradycardia with a rate of 58, normal ND interval, prolonged QRS interval of 102 milliseconds, normal QTC interval, no ST segment elevation, no ST segment depression, no significant T-wave abnormalities, no PACs, no PVCs except for the bradycardia this is a normal EKG Discharge Plan Discharge Clinical Impression: Chest pain, Thoracic back pain, Lumbar back pain, Acute dehydration Patient Disposition: Still a Patient Instructions: Osteoarthritis (ED) Additional Instructions: Your blood work was unremarkable except for slight elevation in your kidney numbers which is most likely caused by dehydration. You were treated with 2 L of normal saline IV. You should increase your fluid intake over the next 3-4 days to prevent dehydration. The x-rays of your thoracic and lumbar back which were done as an outpatient are consistent with arthritis of the back joints. Take Tylenol (acetaminophen) 500 mg pills, take 1 pill every 6 hours as needed for pain. For pain not relieved by Tylenol take morphine 15 mg pills, 1 pill every 6 hours as needed for pain. This medication will make you sleepy, do not drive or work while taking this medication. Morphine is a narcotic medication and can be addicting. If you are concerned about addiction you can ask the pharmacist for less pills or do not get this prescription filled. Take Flexeril (cyclobenzaprine) 10 mg pills, 1 pill every 6-8 hours as needed for pain or spasm. ?This medication will make you sleepy. ?Do not drive or work while taking this medication. Follow-up with your doctor in 2 days. Please return to the emergency department if your symptoms get worse or if you develop any symptoms that are concerning to you. Prescriptions: New cyclobenzaprine 10 mg tablet 10 mg PO TID PRN (Reason: muscle pain or spasm) Qty: 20 0RF acetaminophen [Tylenol Extra Strength] 500 mg tablet 500 mg PO Q6H PRN (Reason: fever or pain) Qty: 30 0RF morphine 15 mg tablet 15 mg PO Q6H PRN (Reason: pain) Qty: 10 0RF Rx Instructions: The patient may ask for partial fill; Partial Fill upon patient request. No Action sildenafil 50 mg tablet 50 mg PO DAILY PRN (Reason: sexual activity) Qty: 5 0RF Rx Instructions: administer 30 minutes to 4 hours before activity insulin glargine [Lantus Solostar U-100 Insulin] 100 unit/mL (3 mL) insulin pen 8 unit subcut QPM 90 Days Qty: 12 3RF levothyroxine 125 mcg tablet 125 mcg PO DAILY Qty: 90 1RF calcium polycarbophil [Fiber (calcium polycarbophil)] 625 mg tablet 625 mg PO BID PRN (Reason: for constipation) Qty: 60 6RF ergocalciferol (vitamin D2) 1,250 mcg (50,000 unit) capsule 1,250 mcg PO QWEEK Qty: 12 2RF (DME) blood-glucose meter [OneTouch Ultra2 Meter] Kit See Rx Instructions .ROUTE .MEDSUPPLY Qty: 1 0RF Rx Instructions: As directed (DME) OneTouch Ultra Test Strip See Rx Instructions .ROUTE .MEDSUPPLY Qty: 100 5RF Rx Instructions: As directed once a day alcohol swabs Pads, Medicated 1 pad topical QID Qty: 200 12RF omega 9-uqo-fai-fish oil [Fish Oil] 1,200 (144-216) mg capsule 1 cap PO DAILY Qty: 90 3RF atorvastatin 10 mg tablet 10 mg PO BEDTIME Qty: 90 1RF Hold Instructions: Doctor's Order pen needle, diabetic [BD Ultra-Fine Leeanne Pen Needle] 32 gauge x 5/32 needle 1 ea subcut DAILY Qty: 100 2RF Flovent HFA 220 mcg/actuation HFA aerosol inhaler 1 puff PO BID Qty: 36 3RF lisinopril 2.5 mg tablet 2.5 mg PO BID Qty: 180 0RF bisacodyl [Dulcolax (bisacodyl)] 5 mg tablet,delayed release (DR/EC) 10 mg PO BEDTIME 30 Days Qty: 60 1RF tizanidine 4 mg tablet 4 mg PO TID PRN (Reason: for muscle spasm) Qty: 90 0RF lorazepam 0.5 mg tablet 0.5 mg PO TID PRN (Reason: Anxiety) lamotrigine 200 mg tablet 200 mg PO BID zonisamide 100 mg capsule 100 mg PO BID trazodone 50 mg tablet 50 mg PO BEDTIME PRN (Reason: Insomnia) albuterol sulfate [ProAir HFA] 90 mcg/actuation HFA aerosol inhaler 2 puff inhalation Q6H PRN (Reason: Wheezing) Farxiga 10 mg tablet 10 mg PO DAILY aripiprazole 5 mg tablet 5 mg PO DAILY fluoxetine [Prozac] 20 mg capsule 20 mg PO DAILY lidocaine 5 % adhesive patch,medicated 2 patch topical DAILY Qty: 30 0RF Rx Instructions: leave on most painful area for up to 12 hrs (DME) pen needle, diabetic 32 gauge x 5/32 needle See Rx Instructions subcut .MEDSUPPLY Qty: 50 Rx Instructions: As directed olanzapine 5 mg tablet 5 mg PO BEDTIME melatonin 5 mg tablet 5 mg PO BEDTIME omeprazole 20 mg capsule,delayed release(DR/EC) 20 mg PO DAILY Qty: 90 2RF Print Language: Greek
[2023-12-06] MEDS: Morphine Sulfate 4 MG/ML CARTRIDGE IVPUSH ×3 (01:10→05:37)
[2023-12-06] MEDS: 0.9 % Sodium Chloride 1,000 ML 999 ML IV ×2 (01:10→02:55)
[2023-12-06] MEDS: ondansetron HCL 4 MG/2 ML VIAL IVPUSH (01:10)
[2023-12-06 01:13] LABS: MANUAL DIFF FLAG NO
[2023-12-06 01:15] LABS: Basophils Percent Auto 0.4 % (0-2); Eosinophils Absolute Auto 0.1 X10*3/uL (0.0-0.4); Eosinophils Percent Auto 1.2 % (0-4); Hematocrit 35.6 % (42.0-52.0); Hemoglobin 11.7 g/dl (14.0-18.0); Imm Gran Abs Auto 0.02 X10*3/uL (0.00-0.03); Imm Gran Pct Auto 0.3 % (0.0-0.4); Lymphocytes Absolute Auto 1.9 X10*3/uL (1.2-4.9); Lymphocytes Percent Auto 26.1 % (20-40); Mean Corpuscular HGB Conc 32.9 g/dl (31.0-36.0); Mean Corpuscular Volume 94.2 fL (80.0-98.0); Monocytes Absolute Auto 0.5 X10*3/uL (0.1-1.2); Monocytes Percent Auto 6.9 % (2-11); Neutrophils Absolute Auto 4.7 x10*3/uL (2.0-8.3); Neutrophils Percent Auto 65.1 % (45-73); Platelet Count 208 X10*3/uL (160-400); Red Blood Count 3.78 X10*6/uL (4.60-5.80); Red Cell Distribution Width 12.5 % (11.0-16.0); White Blood Count 7.2 X10*3/uL (4.8-10.8)
[2023-12-06 01:17] VITALS: BP 110/87; BP 140/92; PULSE 57; PULSE 60; RESP 16; TEMP 36.2; O2SAT 93; O2SAT 99; BMI 28.3
[2023-12-06 01:29] LABS: Alanine Aminotransferase 15 U/L (0-40); Albumin Level 3.8 g/dL (3.5-5.0); Alkaline Phosphatase 137 U/L (39-117); Anion Gap 14 (12-20); Aspartate Amino Transferase 17 U/L (5-37); Bilirubin Total 0.2 mg/dL (0.0-1.0); Blood Urea Nitrogen 53 mg/dL (9-16); C Reactive Protein 0.27 mg/dL (< or = 0.50); Calcium 8.1 mg/dL (8.4-10.2); Carbon Dioxide 17 mmol/L (22-29); Chloride 115 mmol/L (96-108); Creatinine Clr Calc Pharmacy 23.5; Estimated Glomerular Filt Rate 18; Glucose Random 96 mg/dL (60-115); Lipase 65 U/L (8-78); Potassium 4.4 mmol/L (3.3-5.1); Sodium 142 mmol/L (135-145); Total Protein 6.2 g/dL (6.5-8.0)
[2023-12-06 01:32] LABS: Partial Thromboplastin Time 32.5 SEC (26.0-36.8)
[2023-12-06 01:50] LABS: Erythrocyte Sedimentation Rate 5 MM/HR (0-15)
--- NOTE | 2023-12-06 02:59 | PC.NURSE ---
pt c/o severe mid-back pain, medicated per MAR
[2023-12-06 03:39] VITALS: BP 97/55; PULSE 50; RESP 12; TEMP 36.6; O2SAT 97
[2023-12-06 03:51] LABS: Appearance Urine Clear; Color Urine Yellow; Glucose Urine UA 500 mg/dL (Negative); Leukocyte Esterase Urine Negative (Negative); Nitrite Urine Negative (Negative); PH 5.5 (5.0-9.0); Urine Blood Negative (Negative); Urine Ketones Negative (Negative); Urine Protein Negative (Neg-Trace)
[2023-12-06 04:16] LABS: Anion Gap 14 (12-20); Blood Urea Nitrogen 54 mg/dL (9-16); Calcium 8.6 mg/dL (8.4-10.2); Carbon Dioxide 19 mmol/L (22-29); Chloride 116 mmol/L (96-108); Creatinine Clr Calc Pharmacy 24.2; Estimated Glomerular Filt Rate 19; Glucose Random 92 mg/dL (60-115); Sodium 144 mmol/L (135-145)
--- NOTE | 2023-12-06 05:46 | PC.NURSE ---
pt assessed prior to D/C. pt reported 10/10 pain in back, medicated per mar
[2023-12-06 05:57] VITALS: BP 127/77; PULSE 65; RESP 12; TEMP 36.6; O2SAT 99
[2023-12-06 06:53] VITALS: BP 97/55; PULSE 66; RESP 14; TEMP 36.6; O2SAT 97
== END 2023-12-06 06:55 | disposition home or self-care (01) ==
PROVIDERS: Emergency Medicine Emergency Medical Services; Emergency Provider Emergency Medicine
DX: R07.9 Chest pain, unspecified (principal); M54.6 Pain in thoracic spine; M54.50 Low back pain, unspecified; E86.0 Dehydration; E11.9 Type 2 diabetes mellitus without complications; E78.00 Pure hypercholesterolemia, unspecified; I10 Essential (primary) hypertension; Z79.4 Long term (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; Z79.02 Long term (current) use of antithrombotics/antiplatelets; Z79.899 Other long term (current) drug therapy
CPT/HCPCS: 36415; 80048; 80053; 81003; 83690; 84484; 85025; 85652; 85730; 86140; 93005; 96361; 96374; 96375; 96376; 99284; 99285; J2270; J2405

== ENCOUNTER → 2023-12-06 00:16 | Outpatient (BNV) | payer OTHER, SELFPAY | PROVIDERS: Emergency Provider Emergency Medicine; Visit Provider Internal Medicine | DX: R07.9 Chest pain, unspecified (principal) | CPT/HCPCS: 93010 ==

== ENCOUNTER 2023-12-16 14:14 | Outpatient (AMB) | payer OTHER, SELFPAY ==
[2023-12-16 14:16] VITALS: BP 120/86; PULSE 90; O2SAT 98; BMI 28.6
--- NOTE | 2023-12-16 14:16 | MHC.PC.OV ---
Vital Signs 12/16/23 14:16 Height 5 ft 5 in Weight 172 lb BMI 28.6 BP 120/86 Blood Pressure Location Lt brachial Position Sitting Pulse 90 Pulse Source Pulse Oximeter Pulse Oximetry (%) 98 Oxygen Delivery Method Room Air Intake Visit Reasons: follow up Pharmacy Services Director Required: No Breaker Machine Operator: Not Required per policy Accompanied by: Self / Same As Patient Allergies No Known Allergies Allergy (Unknown, Verified 01/08/24 04:14) U Medication List - Last Reconciled 01/08/24 by Zeb Ca MD acetaminophen (Tylenol Extra Strength) 500 mg PO Q6H PRN albuterol sulfate 90 mcg/actuation (ProAir HFA) 2 puffs inhalation Q6H PRN alcohol swabs 1 pad topical QID aripiprazole 5 mg PO DAILY atorvastatin 10 mg PO BEDTIME bisacodyl (Dulcolax (bisacodyl)) 10 mg (2 x 5 mg) PO BEDTIME 30 days blood sugar diagnostic ([employer]uch Ultra Test strips) As directed once a day blood-glucose meter ([employer] Ultra2 Meter kit) As directed calcium polycarbophil (Fiber (calcium polycarbophil)) 625 mg PO BID PRN dapagliflozin propanediol (Farxiga) 10 mg PO DAILY ergocalciferol (vitamin D2) 1,250 mcg PO QWEEK fluoxetine 40 mg PO DAILY fluticasone propionate 220 mcg/actuation 1 puff PO BID insulin glargine (Lantus Solostar U-100 Insulin) 8 units (0.08 mL) subcut QPM 90 days lamotrigine 200 mg PO BID levothyroxine 125 mcg PO DAILY lisinopril 2.5 mg PO BID lorazepam 0.5 mg PO TID PRN melatonin 5 mg PO BEDTIME PRN methocarbamol 750 mg PO Q8H 30 days morphine 15 mg PO Q6H PRN olanzapine 5 mg PO BEDTIME omega 6-ofj-khm-fish oil 1,200 (144-216) mg (Fish Oil) 1 cap PO DAILY omeprazole 20 mg PO DAILY pen needle, diabetic (BD Ultra-Fine Leeanne Pen Needle) 1 ea subcut DAILY pen needle, diabetic As directed sildenafil 50 mg PO DAILY PRN trazodone 50 mg PO BEDTIME PRN zonisamide 100 mg PO QID Tobacco use date assessed: 11/18/23 Dental Screening Dental Screen Date: 11/18/23 HPI follow up HPI Details Patient comes in today for his follow up visit States that he continues to experience increased pain over his back and that he sometimes has difficulty moving and getting around due to his increasing back pain lately He also went to the ER about 10 days ago for acute chest pain and increasing back pain Cardiac work ups done in the ER came back negative States that he had x-rays done on his back a couple of weeks ago and would like to find out how his x-rays came out and what he has to do next to help with his increasing back pain States that his current Rx do not seem to be helping at all with his back pains Relates that he feels okay otherwise and his recent chest pains have not recurred since he was discharged from the ER a couple of weeks ago He denies any headaches or dizziness Denies any SOB No nausea/vomiting, no abdominal pain No change in bowel habits noted PFSH Medical History Polycystic kidney disease Lumbar spondylosis Degenerative joint disease of thoracic spine Overweight (BMI 25.0-29.9) Chronic kidney disease, stage 4 (severe) Prolonged QT interval Hyperkalemia Memory impairment Vitamin D deficiency Hypothyroidism Seizures Anxiety Fatty liver IBS (irritable colon syndrome) GERD (gastroesophageal reflux disease) Obesity (BMI 30-39.9) Schizoaffective disorder Asthma Epilepsy Essential hypertension Pure hypercholesterolemia alf (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 Type 2 diabetes mellitus with diabetic chronic kidney disease Surgical History History of dental surgery H/O colonoscopy Family History Father No problems noted. 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 Emiliano Ledezma, Ashly Pat, Rohit Tilley and colleagues, with an educational danette from [employer]. Review of Systems Const Denies chills, Denies fatigue, Denies fever(s) and Denies headache(s) ENT Denies dysphagia, Denies dizziness, Denies headache(s), Denies neck pain, Denies odynophagia and Denies sore throat Card Denies chest pain, Denies palpitations and Denies dyspnea Resp Denies cough, Denies dyspnea and Denies wheezing GI Denies abdominal pain, Denies constipation, Denies dysphagia, Denies heartburn, Denies diarrhea, Denies nausea, Denies odynophagia and Denies vomiting Denies dysuria, Denies nocturia and Denies urinary frequency Musc Reports abnormal gait (unsteady), Reports back pain (increasing - see HPI), Denies arthralgias and Denies neck pain Skin/Breast Denies rash Neuro Reports abnormal gait (unsteady), Denies dizziness and Denies headache(s) Endo Denies fatigue and Denies palpitations Aller/Immun Denies wheezing Physical exam (Primary Care) Vital Signs: Last Vital Signs Pulse 90 12/16/23 14:16 BP 120/86 12/16/23 14:16 Pulse Ox 98 12/16/23 14:16 Oxygen Delivery Method Room Air 12/16/23 14:16 BMI result Body Mass Index 28.6 Tobacco/Smoking Status: Tobacco use Status Tobacco use date assessed 11/18/23 12/16/23 14:22 Patient Tobacco Use Status Former Tobacco user 12/16/23 14:22 e-Cigarette/Vaping Use Never Used 12/16/23 14:22 Thrive Assessment: Date of Thrive Assessment Date Thrive assessed 11/18/23 12/16/23 14:22 Const General: no acute distress and alert Neck Neck: Yes no lymphadenopathy and Yes supple Resp Auscultation: clear to auscultation bilaterally, no rales and no wheezes Cardio Rate: regular rate Rhythm: regular rhythm Heart sounds: no murmurs GI Palpation (GI): Soft to palpation and nontender Auscultation: normal bowel sounds General: Yes no CVA tenderness Back/Spine/Pelvis Back: no CVA tenderness Thoracic/Lumbar Spine: thoracic spinal tenderness and lumbar spinal tenderness Skin Rashes: no rashes Extrem General: Yes no clubbing, cyanosis or edema Results Reviewed Results Reviewed: Laboratory Tests 11/06/23 11/06/23 12/06/23 06:49 06:50 01:07 WBC 7.2 Hgb 11.7 L Hct 35.6 L Plt Count 208 ESR 5 Sodium Potassium Creatinine Estimated GFR Random Glucose Calcium AST ALT Alkaline Phosphatase 25-OH Vitamin D Total 64.4 TSH 0.76 Free T4 0.91 PTH Intact 131.5 H Ur Specific [place] Urine Protein Urine Glucose (UA) Urine Blood Urine Nitrite Ur Leukocyte Esterase Microalb/Creat Ratio 97.9 H 12/06/23 12/06/23 12/06/23 01:09 03:45 03:57 WBC Hgb Hct Plt Count ESR Sodium 144 Potassium 5.0 Creatinine 3.42 H Estimated GFR 19 Random Glucose 92 Calcium 8.6 D AST 17 ALT 15 Alkaline Phosphatase 137 H 25-OH Vitamin D Total TSH Free T4 PTH Intact Ur Specific [place] 1.010 Urine Protein Negative Urine Glucose (UA) 500 H Urine Blood Negative Urine Nitrite Negative Ur Leukocyte Esterase Negative Microalb/Creat Ratio Assessment and Plan Assessment & Plan (1) Degenerative joint disease of thoracic spine: Code(s): M47.814 - Spondylosis without myelopathy or radiculopathy, thoracic region Qualifiers: Spinal osteoarthritis complication: other spinal osteoarthritis Qualified Code(s): M47.894 - Other spondylosis, thoracic region (2) Lumbar spondylosis: Code(s): M47.816 - Spondylosis without myelopathy or radiculopathy, lumbar region Plan Thoracic spine x-rays done a couple of weeks ago revealed (+) prominent multilevel endplate osteophytes with bridging osteophytes are present throughout the thoracic spine, similar to the prior examination, with no acute osseous abnormality noted Lumbar spine x-rays done recently revealed (+) stable lumbar spondylosis leading to some degree of neural foraminal encroachment from L4 through S1 and stable very prominent osteophytes in the upper lumbar spine, with no acute compression deformity or subluxation noted Will switch out his previous muscle relaxants and start him instead on Methocarbamol 750 mg TID PRN as he states that his previous Rx have not helped with his back pains Will also refer him to physical therapy for further management of his recently increasing back pain Follow up as scheduled in February 2024 Orders: Orders PT Evaluation and Treatment 12/16/23 M54.50 - Low back pain, unspecified Medications: New methocarbamol 750 mg PO Q8H 90 tabs 1RF low back pain 30 days Discontinued cyclobenzaprine Discontinued Reason: Doctor's Order 10 mg PO TID PRN 20 tabs 0RF muscle pain or spasm tizanidine Discontinued Reason: Doctor's Order 4 mg PO TID PRN 90 tabs 0RF for muscle spasm Coding Level of Care Code Est Pt Level 3 (30596) Diagnoses Other osteoarthritis of spine, thoracic region M47.894 Spinal osteoarthritis complication: other spinal osteoarthritis Lumbar spondylosis M47.816
== END 2023-12-16 15:05 | disposition home or self-care (01) ==
PROVIDERS: PCP Internal Medicine; Visit Provider Internal Medicine
DX: M47.894 Other spondylosis, thoracic region (principal); M47.816 Spondylosis without myelopathy or radiculopathy, lumbar region
CPT/HCPCS: 99213

== ENCOUNTER 2023-12-18 12:11 | Outpatient (AMB) | payer OTHER, SELFPAY ==
[2023-12-18 12:17] VITALS: BP 113/82; PULSE 59; BMI 28.7
--- NOTE | 2023-12-18 12:17 | MHC.OFFVIS ---
Vital Signs 12/18/23 12:17 Height 5 ft 5 in Weight 172 lb 6.424 oz BMI 28.7 BP 113/82 Blood Pressure Location Rt brachial Position Sitting Pulse 59 Intake Visit Reasons: 4 week follow up Intake Note: Shaheen presents in office today for follow up of labs. CC: Patient seen in the ER on 12/05 with back pain. Denies any GI symptoms today. Can Crimper Required: No Accompanied by: Self / Same As Patient Allergies No Known Allergies Allergy (Unknown, Verified 12/18/23 12:21) U HPI HPI 4 week follow up: Details: Assessment & Plan (1) Elevated LFTs: Comment: BASELINE LABS;: 03/30/2020 total bili 0.4, alk-phos is 165, AST/ALT is 27/34 11/20/23 06:50 WBC 4.9 RBC 3.89 L Hgb 11.9 L Hct 35.2 L MCV 90.5 MCH 30.6 Plt Count 219 Estimated GFR 24 Total Bilirubin 0.4 AST 134 H ALT 61 H Alkaline Phosphatase 153 H TSH 0.76 PTH Intact 131.5 H CURRENT LABS ULTRASOUND OF THE ABDOMEN Code(s): R79.89 - Other specified abnormal findings of blood chemistry Category: Medical (2) Chronic kidney disease, stage 3: Code(s): N18.30 - Chronic kidney disease, stage 3 unspecified Category: Medical Qualifiers: Chronic kidney disease stage 3 subtype: unspecified whether 3a or 3b Qualified Code(s): N18.30 - Chronic kidney disease, stage 3 unspecified (3) Colon cancer screening: Comment: 11/2023= negative Cologuard repeat in 3 years; 2020 scope negative repeat 10 years Code(s): Z12.11 - Encounter for screening for malignant neoplasm of colon Category: Medical Plan He has multiple health challenges. He is having severe kidney disease and is working with Dr. Knowles to try to uncover the etiology of this. He will be having a 24 hour urine soon in this necessitate stopping most of his supplements and some of his medications. He also has extremely elevated liver function tests AST greater than ALT but he does not drink alcohol. 03/30/2020 HIS TOTAL BILIRUBIN WAS NORMAL, HIS ALK-PHOS WAS ELEVATED AT 165 IN HIS AST ALT WAS 27/34. I think we should do some extra blood work to see if we can uncover any reversible causes. It is possible that this is in response to poor renal flow. He has not upcoming ultrasound that was ordered by his primary care provider so I will simply add the liver labs. He was doing well with his constipation when he was on his kidney supplements but of course he had to stop them. He also has MiraLax but has not been using it. Again he has to stay off his medications for a while until he gets his urine tests. He has no FHX of liver disease or renal disease. 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 Return office visit 4 weeks Orders: Orders HIV Ab/Ag Today N18.30 - Chronic kidney disease, stage 3 unspecified, R79.89 - Other specified abnormal findings of blood chemistry Smooth Muscle Antibody Today N18.30 - Chronic kidney disease, stage 3 unspecified, R79.89 - Other specified abnormal findings of blood chemistry Ferritin Today N18.30 - Chronic kidney disease, stage 3 unspecified, R79.89 - Other specified abnormal findings of blood chemistry Liver Fibrosis Pnl Today N18.30 - Chronic kidney disease, stage 3 unspecified, R79.89 - Other specified abnormal findings of blood chemistry Alpha Fetoprotein Today N18.30 - Chronic kidney disease, stage 3 unspecified, R79.89 - Other specified abnormal findings of blood chemistry MONSE Reflex Titer and Pattern Today R79.89 - Other specified abnormal findings of blood chemistry Hepatitis A,B,C Profile Today N18.30 - Chronic kidney disease, stage 3 unspecified, R79.89 - Other specified abnormal findings of blood chemistry Gamma Glutamyl Transpeptidase Today N18.30 - Chronic kidney disease, stage 3 unspecified, R79.89 - Other specified abnormal findings of blood chemistry Mitochondrial Antibody Today N18.30 - Chronic kidney disease, stage 3 unspecified, R79.89 - Other specified abnormal findings of blood chemistry Medications: On Hold atorvastatin Hold Comment: Doctor's Order 10 mg PO BEDTIME 90 tabs 1RF LABS: Laboratory Tests 11/20/23 12/06/23 12/06/23 14:04 01:09 03:57 Estimated GFR 19 Total Bilirubin 0.2 AST 17 ALT 15 Alkaline Phosphatase 137 H C-Reactive Protein 0.27 Lipase 65 MONSE Screen NEGATIVE Anti-Mitochondrial Ab NEGATIVE Anti-Smooth Muscle Ab <20 Hepatitis A IgM Ab Nonreactive Hep Bs Antigen Negative Hep Bs Antibody NONREACTIVE Hep B Core Total Ab Nonreactive Hepatitis C Ab (EIA) Nonreactive HIV 1&2 Ab/P24 Ag 4thGn Nonreactive LIVER FIBROSIS PANEL AND FERRITIN NOT OBTAINED TODAY'S VISIT He is rapidly losing weight, but was taken off of Trulicty and changed to Farxiga. This can be the cause, as his glucosurea has increased. He says his sugars have been well controlled. His liver appears to have improved, this was most likely r/t the atorvastatin although hepatorenal interplay could also effect this. The bisacodyl is working for his [facility] and he continues on his omeprazole. He is quite worried about his renal fxn, and needs to see his nephologist to best preserve his kidneys. ROV 6 mos. 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 Cognitive needs: No Hearing needs: No Vision needs: Yes (glasses) Review of Systems Const Denies fatigue, Denies fever(s), Denies night sweats, Denies poor appetite and Denies weight loss Eyes Details: glasses Reports requires corrective lenses ENT Reports Normal hearing present, Denies dental pain, Denies dysphagia, Denies hearing loss, Denies mouth pain, Denies odynophagia, Denies throat swelling, Denies tongue swelling and Reports other (Dentition adequate) Card Reports no additional complaints Resp Reports no additional complaints GI Details: Denies abdominal pain, Denies melena, Denies bloating, Denies hematochezia, Reports constipation, Denies GI cramping, Denies dysphagia, Denies excessive flatus, Denies early satiety, Reports heartburn, Denies diarrhea, Denies nausea, Denies odynophagia, Denies vomiting and Denies hematemesis Skin/Breast Denies pruritus, Denies lesions, Denies rash and Denies jaundice Neuro Reports Normal hearing present and Denies Abnormal speech present Endo Denies fatigue Aller/Immun Denies throat swelling and Denies tongue swelling Physical Exam Vital Signs: Last Vital Signs Pulse 59 12/18/23 12:17 BP 113/82 12/18/23 12:17 BMI result Body Mass Index 28.7 Const General: cooperative, no acute distress, well developed and well groomed Nutritional Appearance: average body habitus and well nourished Orientation/consciousness: oriented to person, oriented to place and oriented to time Limitations: No language barrier HEENT Head: Yes normocephalic and Yes atraumatic Eyes General: appearance normal, both eyes and all related structures Pupils: Equal, round and reactive pupils present Neck Neck: Yes normal visual inspection and Yes no lymphadenopathy Thyroid: Thyroid normal Resp Effort & Inspection: normal respiratory effort and able to speak in complete sentences Auscultation: clear to auscultation bilaterally Cardio Rate: regular rate Rhythm: regular rhythm Heart sounds: Normal, physiologic split S2 sound present Peripheral pulses: radial pulses present and posterior tibial pulses present GI Inspection: No distended and No Abdominal panniculus present Palpation (GI): Soft to palpation, nontender, no guarding, not rigid and No hepatosplenomegaly present Percussion: Yes normal to percussion Auscultation: normal bowel sounds Rectal Exam - Male: Yes deferred Skin General skin exam: no rashes or lesions noted, turgor normal, skin not dry, no jaundice, No spider nevi and no striae Rashes: no rashes Nails: normal Neuro General: oriented to person, oriented to place and oriented to time Cranial nerves: Yes Equal, round and reactive pupils present and Yes Normal hearing present Speech: No Abnormal speech present Extrem General: Yes normal to inspection, No clubbing, No cyanosis and No edema Psych Appearance: grossly normal and well kempt Mental Status: mental status grossly normal Speech and movement: Normal speech and movement present Affect: normal affect Attitude: cooperative Thought process: Normal thought process present and not confabulating Thought content: Normal thought content present Insight: Fair insight present (Psych) Judgement: Fair judgement present (Psych) Results Reviewed Results Reviewed: 11/20/23 12/06/23 12/06/23 14:04 01:09 03:57 Estimated GFR 19 Total Bilirubin 0.2 AST 17 ALT 15 Alkaline Phosphatase 137 H C-Reactive Protein 0.27 Lipase 65 MONSE Screen NEGATIVE Anti-Mitochondrial Ab NEGATIVE Anti-Smooth Muscle Ab <20 Hepatitis A IgM Ab Nonreactive Hep Bs Antigen Negative Hep Bs Antibody NONREACTIVE Hep B Core Total Ab Nonreactive Hepatitis C Ab (EIA) Nonreactive HIV 1&2 Ab/P24 Ag 4thGn Nonreactive LIVER FIBROSIS PANEL AND FERRITIN NOT OBTAINED Assessment & Plan Assessment & Plan (1) Elevated LFTs: Comment: BASELINE LABS;: 03/30/2020 total bili 0.4, alk-phos is 165, AST/ALT is 27/34 11/20/23 06:50 Plt Count 219 Estimated GFR 24 Total Bilirubin 0.4 AST 134 H ALT 61 H Alkaline Phosphatase 153 H TSH 0.76 MONSE Screen NEGATIVE Anti-Mitochondrial Ab NEGATIVE Anti-Smooth Muscle Ab <20 Hepatitis A IgM Ab Nonreactive Hep Bs Antigen Negative Hep Bs Antibody NONREACTIVE Hep B Core Total Ab Nonreactive Hepatitis C Ab (EIA) Nonreactive HIV 1&2 Ab/P24 Ag 4thGn Nonreactive CURRENT LABS 11/19/2404/11/2404 14:0401:0903:57 Estimated GFR 19 Total Bilirubin 0.2 AST 17 ALT 15 Alkaline Phosphatase 137 H C-Reactive Protein 0.27 Lipase 65 MONSE Screen NEGATIVE Anti-Mitochondrial Ab NEGATIVE Anti-Smooth Muscle Ab <20 Hepatitis A IgM Ab Nonreactive Hep Bs Antigen Negative Hep Bs Antibody NONREACTIVE Hep B Core Total Ab Nonreactive Hepatitis C Ab (EIA) Nonreactive HIV 1&2 Ab/P24 Ag 4thGn Nonreactive LIVER FIBROSIS PANEL AND FERRITIN NOT OBTAINED ULTRASOUND OF THE ABDOMEN Code(s): R79.89 - Other specified abnormal findings of blood chemistry Category: Medical (2) Chronic kidney disease, stage 4 (severe): Code(s): N18.4 - Chronic kidney disease, stage 4 (severe) Category: Medical (3) Prolonged QT interval: Code(s): R94.31 - Abnormal electrocardiogram [ECG] [EKG] Category: Medical (4) Irritable bowel syndrome with both constipation and diarrhea: Code(s): K58.2 - Mixed irritable bowel syndrome Category: Medical (5) GERD (gastroesophageal reflux disease): Code(s): K21.9 - Gastro-esophageal reflux disease without esophagitis Category: Medical Qualifiers: Esophagitis presence: without esophagitis Qualified Code(s): K21.9 - Gastro-esophageal reflux disease without esophagitis Plan He is rapidly losing weight, but was taken off of Trulicty and changed to Farxiga. This can be the cause, as his glucosurea has increased. He says his sugars have been well controlled. His liver appears to have improved, this was most likely r/t the atorvastatin although hepatorenal interplay could also effect this. The bisacodyl is working for his [facility] and he continues on his omeprazole. He is quite worried about his renal fxn, and needs to see his nephologist to best preserve his kidneys. ROV 6 mos. Coding Level of Care Code Est Pt Level 3 (84969) Diagnoses Elevated LFTs R79.89 Chronic kidney disease, stage 4 (severe) N18.4 Prolonged QT interval R94.31 Irritable bowel syndrome with both constipation and diarrhea K58.2 Gastroesophageal reflux disease without esophagitis K21.9 Esophagitis presence: without esophagitis
== END 2023-12-18 12:48 | disposition home or self-care (01) ==
PROVIDERS: PCP Internal Medicine; Visit Provider Nurse Practitioner
DX: R79.89 Other specified abnormal findings of blood chemistry (principal); N18.4 Chronic kidney disease, stage 4 (severe); R94.31 Abnormal electrocardiogram [ECG] [EKG]; K58.2 Mixed irritable bowel syndrome; K21.9 Gastro-esophageal reflux disease without esophagitis
CPT/HCPCS: 99213

== ENCOUNTER → 2023-12-18 12:11 | Outpatient (BNVA) | payer OTHER, SELFPAY | PROVIDERS: PCP Internal Medicine; Visit Provider Nurse Practitioner | DX: R79.89 Other specified abnormal findings of blood chemistry (principal); R94.31 Abnormal electrocardiogram [ECG] [EKG]; N18.4 Chronic kidney disease, stage 4 (severe); K58.2 Mixed irritable bowel syndrome; K21.9 Gastro-esophageal reflux disease without esophagitis | CPT/HCPCS: 99212 ==

== ENCOUNTER 2024-01-01 15:00 | Outpatient (REF) | payer OTHER, SELFPAY ==
[2024-01-03 19:14] LABS: Calcium, 24 Hr Urine 15 mg/24 h; Calcium/Creatinine Ratio 19 mg/g creat (30-210); Creatinine 24Hr Urine 0.78 g/24 h (0.50-2.15)
== END 2024-01-01 15:01 | disposition home or self-care (01) ==
LOC: HO.LNP 15:00
PROVIDERS: Visit Provider Internal Medicine
DX: E21.3 Hyperparathyroidism, unspecified (principal)
CPT/HCPCS: 82340

== ENCOUNTER 2024-02-06 07:45 | Outpatient (REF) | payer OTHER, SELFPAY ==
[2024-02-06 07:59] LABS: MANUAL DIFF FLAG NO
[2024-02-06 08:19] LABS: Appearance Urine Clear; Color Urine Yellow; Glucose Urine UA 500 mg/dL (Negative); Leukocyte Esterase Urine Negative (Negative); Nitrite Urine Negative (Negative); Specific Gravity - Urine <= 1.005 (1.005-1.025); Urine Blood Negative (Negative); Urine Ketones Negative (Negative); Urine Protein Negative (Neg-Trace)
[2024-02-06 08:33] LABS: Basophils Percent Auto 0.6 % (0-2); Eosinophils Absolute Auto 0.1 X10*3/uL (0.0-0.4); Eosinophils Percent Auto 1.9 % (0-4); Hematocrit 37.8 % (42.0-52.0); Hemoglobin 12.3 g/dl (14.0-18.0); Imm Gran Abs Auto 0.02 X10*3/uL (0.00-0.03); Imm Gran Pct Auto 0.4 % (0.0-0.4); Lymphocytes Absolute Auto 1.4 X10*3/uL (1.2-4.9); Lymphocytes Percent Auto 27.1 % (20-40); Mean Corpuscular HGB Conc 32.5 g/dl (31.0-36.0); Mean Corpuscular Volume 92.2 fL (80.0-98.0); Mean Platelet Volume 8.6 fL (9.4-12.4); Monocytes Absolute Auto 0.3 X10*3/uL (0.1-1.2); Neutrophils Absolute Auto 3.3 x10*3/uL (2.0-8.3); Platelet Count 235 X10*3/uL (160-400); Red Cell Distribution Width 12.9 % (11.0-16.0); White Blood Count 5.2 X10*3/uL (4.8-10.8)
[2024-02-06 08:39] LABS: Estimated Average Glucose 105 mg/dL; Hemoglobin A1c % 5.3 % (<6.0)
[2024-02-06 09:05] LABS: Creatinine Urine 31.21 mg/dL
[2024-02-06 09:06] LABS: Alanine Aminotransferase 22 U/L (0-40); Albumin Level 4.4 g/dL (3.5-5.0); Alkaline Phosphatase 163 U/L (39-117); Anion Gap 14 (12-20); Aspartate Amino Transferase 25 U/L (5-37); Bilirubin Direct 0.1 mg/dL (0.0-0.5); Bilirubin Total 0.3 mg/dL (0.0-1.0); Blood Urea Nitrogen 34 mg/dL (9-16); Carbon Dioxide 25 mmol/L (22-29); Chloride 108 mmol/L (96-108); Cholesterol 212 mg/dL (<200); Estimated Glomerular Filt Rate 25; Glucose Fasting 105 mg/dL (60-99); HDL Cholesterol 50 mg/dL (>40); LDL Cholesterol Calculated 150 mg/dL (<100); Potassium 4.9 mmol/L (3.3-5.1); Sodium 142 mmol/L (135-145); Total Protein 7.2 g/dL (6.5-8.0); Triglycerides 61 mg/dL (<150)
[2024-02-06 09:25] LABS: Free T4 (Free Thyroxine) 0.92 ng/dL (0.71-1.85); Thyroid Stimulating Hormone 0.33 uIU/mL (0.32-4.0); Vitamin D 25-OH Total 53.1 ng/mL (>30)
== END 2024-02-06 07:46 | disposition home or self-care (01) ==
LOC: HO.LAB 07:45
PROVIDERS: PCP Internal Medicine; Referring Provider Internal Medicine Nephrology; Visit Provider Internal Medicine
DX: E03.9 Hypothyroidism, unspecified (principal); E55.9 Vitamin D deficiency, unspecified; R30.0 Dysuria; E11.9 Type 2 diabetes mellitus without complications; E78.00 Pure hypercholesterolemia, unspecified; D64.9 Anemia, unspecified
CPT/HCPCS: 36415; 80053; 80061; 80076; 81003; 82043; 82248; 82306; 82570; 83036; 84439; 84443; 85025

== ENCOUNTER 2024-02-09 08:43 | Outpatient (REF) | payer OTHER, SELFPAY ==
[2024-02-09 09:09] LABS: MANUAL DIFF FLAG NO
[2024-02-09 09:32] LABS: Basophils Percent Auto 0.3 % (0-2); Eosinophils Absolute Auto 0.1 X10*3/uL (0.0-0.4); Eosinophils Percent Auto 1.2 % (0-4); Hematocrit 34.2 % (42.0-52.0); Hemoglobin 11.2 g/dl (14.0-18.0); Imm Gran Abs Auto 0.02 X10*3/uL (0.00-0.03); Imm Gran Pct Auto 0.3 % (0.0-0.4); Lymphocytes Absolute Auto 1.3 X10*3/uL (1.2-4.9); Lymphocytes Percent Auto 21.6 % (20-40); Mean Corpuscular HGB Conc 32.7 g/dl (31.0-36.0); Mean Corpuscular Hemoglobin 29.9 pg (27.0-33.0); Mean Corpuscular Volume 91.2 fL (80.0-98.0); Mean Platelet Volume 8.5 fL (9.4-12.4); Monocytes Absolute Auto 0.4 X10*3/uL (0.1-1.2); Monocytes Percent Auto 7.4 % (2-11); Neutrophils Percent Auto 69.2 % (45-73); Platelet Count 219 X10*3/uL (160-400); Red Blood Count 3.75 X10*6/uL (4.60-5.80); Red Cell Distribution Width 13.1 % (11.0-16.0); White Blood Count 5.8 X10*3/uL (4.8-10.8)
[2024-02-09 10:00] LABS: Anion Gap 13 (12-20); Blood Urea Nitrogen 37 mg/dL (9-16); Calcium 8.6 mg/dL (8.4-10.2); Carbon Dioxide 23 mmol/L (22-29); Chloride 106 mmol/L (96-108); Estimated Glomerular Filt Rate 26; Magnesium 2.2 mg/dL (1.6-2.6); Phosphorus 4.6 mg/dL (2.7-4.5); Potassium 5.5 mmol/L (3.3-5.1); Sodium 136 mmol/L (135-145)
[2024-02-09 10:11] LABS: Parathyroid Hormone Intact 302.5 pg/mL (8.7-77.1)
[2024-02-09 10:14] LABS: Vitamin D 25-OH Total 43.8 ng/mL (>30)
[2024-02-09 10:17] LABS: Appearance Urine Clear; Color Urine Yellow; Glucose Urine UA 250 mg/dL (Negative); Leukocyte Esterase Urine Negative (Negative); Nitrite Urine Negative (Negative); Specific Gravity - Urine <= 1.005 (1.005-1.025); Urine Blood Negative (Negative); Urine Ketones Negative (Negative); Urine Protein Negative (Neg-Trace)
[2024-02-09 12:27] LABS: Creatinine Urine 14.62 mg/dL; Microalbum/Creatinine Ratio Ur 61.5 ug/mg cr (<30); Total Protein Urine Random < 7 mg/dL (<12)
== END 2024-02-09 08:44 | disposition home or self-care (01) ==
LOC: HO.LAB 08:43
PROVIDERS: PCP Internal Medicine; Visit Provider Internal Medicine Nephrology
DX: E11.21 Type 2 diabetes mellitus with diabetic nephropathy (principal); E11.22 Type 2 diabetes mellitus with diabetic chronic kidney disease; E11.51 Type 2 diabetes mellitus with diabetic peripheral angiopathy without gangrene; I12.9 Hypertensive chronic kidney disease with stage 1 through stage 4 chronic kidney disease, or unspecified chronic kidney disease; N18.4 Chronic kidney disease, stage 4 (severe); N25.0 Renal osteodystrophy
CPT/HCPCS: 36415; 80051; 81003; 82040; 82043; 82306; 82310; 82565; 82570; 83735; 83970; 84100; 84156; 84520; 85025

== ENCOUNTER 2024-02-25 11:00 | Outpatient (RCR) | payer OTHER, SELFPAY ==
--- NOTE | 2024-01-08 14:44 | MHC.PT.EP ---
[facility] [place] [facility] [place] [facility] [place] [facility] [address] Eldon Escobar [address] [phone] F: [phone] F: [phone] F: [phone] F: [phone] Physical Therapy Plan of Care Date of Evaluation: 01/08/24 Date of Surgery: Diagnosis: low back pain and thoracic spine pain (bridging osteophytes seen on imaging thoracic and lumbar spine) Assessment: Patient is a 53 y.o. male who is referred to PT by Dr. Zeb Ca MD with Dx of low back pain. PT diagnosis is thoracic and lumbar pain. On imaging there is Prominent multilevel endplate osteophytes with bridging osteophytes are present throughout the thoracic spine. Unchanged very prominent osteophytes at L1-L2 and L2-L3. Stable multilevel spondylosis with intervertebral disc height loss and facet arthropathy leading to some degree of neural foraminal osseous encroachment from L4 through S1. Patient current functional limitations are poor posture, poor body mechanics, pain, limited ROM and strength in middle and lower trapezius. Patient will benefit from skilled PT to address aforementioned impairments and functional limitations to meet established goals. Frequency and Duration: The patient will be seen 1-2x/week for 4 weeks Short Term Goals: 2 weeks Patient demonstrates consistency and independence with HEP to self manage symptoms. 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 Patient presents with increased trunk rotation moderate limited, able to get in/out of bed without labored movement and pain in the morning. Treatment Plan: Modalities to reduce pain, spasms and effusion. Manual therapy to restore motion and function. Therapeutic exercise to improve strength and flexibility. Neuromuscular re-education for posture and balance. Therapeutic activities to return to functional activities of daily living. Electronically signed by: Samantha Ureña, PT, DPT Please sign and return to therapist. Thank you for your referral.
--- NOTE | 2024-04-19 16:18 | MHC.PT.DC ---
[facility] [place] Office [place] Office [place] Office [address] Eldon Escobar [address] [phone] F: [phone] F: [phone] F: [phone] F: [phone] Physical Therapy Discharge Report Diagnosis: low back pain and thoracic spine pain (bridging osteophytes seen on imaging thoracic and lumbar spine) Date of Surgery: Date of Evaluation: 01/08/24 Date of Discharge: 04/19/24 Treatments to Date: 6 Cancellations to Date: 6 No Shows to Date: 1 Discharge Status: Independent with HEP Visit Non-compliance Discharge Summary: Shaheen did not show to or cancelled his last scheduled PT sessions and is therefore discharged for non compliance with attendance. At his last PT session 02/25/24 the assessment reads, I reviewed what to avoid at gym to help reduce back pain. He does well with program, does need cues to recall some exercises. He is able to self correct poor posture in standing without cues. Shaheen continues to make progress with PT interventions. He does continue to need education and practice of program for HEP and for use of gym equipment to avoid reinjury. I recommend PT 1x/week for 4 weeks with plan to discharge at that point. Electronically signed by: Samantha Ureña, PT, DPT Please sign and return to therapist. Thank you for your referral.
== END 2024-04-19 16:19 | disposition home or self-care (01) ==
LOC: HO.PT 11:00
PROVIDERS: PCP Internal Medicine; Visit Provider Internal Medicine
DX: M54.50 Low back pain, unspecified (principal)
CPT/HCPCS: 97110; 97161; 97530

== ENCOUNTER 2024-03-02 09:46 | Outpatient (AMB) | payer OTHER, SELFPAY ==
[2024-03-02 09:51] VITALS: BP 128/72; PULSE 63; O2SAT 98; BMI 29.3
--- NOTE | 2024-03-02 09:51 | MHC.PC.OV ---
Vital Signs 03/02/24 09:51 Height 5 ft 5 in Weight 176 lb BMI 29.3 BP 128/72 Blood Pressure Location Lt brachial Position Sitting Pulse 63 Pulse Source Pulse Oximeter Pulse Oximetry (%) 98 Oxygen Delivery Method Room Air Intake Visit Reasons: 3mof\u Allergies atorvastatin Adverse Reaction (Intermediate, Verified 03/02/24 10:42) elevated LFTs Medication List - Last Reconciled 03/02/24 by Zeb Ca MD acetaminophen (Tylenol Extra Strength) 500 mg PO Q6H PRN albuterol sulfate 90 mcg/actuation (ProAir HFA) 2 puffs inhalation Q6H PRN 30 days alcohol swabs 1 pad topical QID aripiprazole 5 mg PO DAILY atorvastatin 10 mg PO BEDTIME bisacodyl (Dulcolax (bisacodyl)) 10 mg (2 x 5 mg) PO BEDTIME 30 days blood sugar diagnostic ([employer] Ultra Test strips) As directed once a day blood-glucose meter ([employer] Ultra2 Meter kit) As directed calcium polycarbophil (Fiber (calcium polycarbophil)) 625 mg PO BID PRN dapagliflozin propanediol (Farxiga) 10 mg PO DAILY ergocalciferol (vitamin D2) 1,250 mcg PO QWEEK fluoxetine 40 mg PO DAILY fluticasone propionate 220 mcg/actuation 1 puff PO BID insulin glargine (Lantus Solostar U-100 Insulin) 8 units (0.08 mL) subcut QPM 90 days lamotrigine 200 mg PO BID levothyroxine 125 mcg PO DAILY lisinopril 2.5 mg PO BID lorazepam 0.5 mg PO TID PRN melatonin 5 mg PO BEDTIME PRN methocarbamol 750 mg PO Q8H 30 days morphine 15 mg PO Q6H PRN olanzapine 5 mg PO BEDTIME omega 5-cze-hit-fish oil 1,200 (144-216) mg (Fish Oil) 1 cap PO DAILY omeprazole 20 mg PO DAILY pen needle, diabetic (BD Ultra-Fine Leeanne Pen Needle) 1 ea subcut DAILY pen needle, diabetic As directed sildenafil 50 mg PO DAILY PRN trazodone 50 mg PO BEDTIME PRN zonisamide 100 mg PO QID Tobacco use date assessed: 11/18/23 Dental Screening Dental Screen Date: 11/18/23 HPI 3mof\u HPI Details Patient comes in today for his follow up visit States that he feels okay He denies any headaches or dizziness Denies any chest pains, no SOB No nausea/vomiting, no abdominal pain No change in bowel habits noted States that he needs a referral to have his hearing checked as he has noticed a significant decline in his hearing lately He had his follow up labs done a few weeks ago - to discuss his results FORMERLY [facility], [facility]–1983 Medical History Polycystic kidney disease Lumbar spondylosis Degenerative joint disease of thoracic spine Overweight (BMI 25.0-29.9) Chronic kidney disease, stage 4 (severe) Prolonged QT interval Hyperkalemia Memory impairment Vitamin D deficiency Hypothyroidism Seizures Anxiety Fatty liver IBS (irritable colon syndrome) GERD (gastroesophageal reflux disease) Obesity (BMI 30-39.9) Schizoaffective disorder Asthma Epilepsy Essential hypertension Pure hypercholesterolemia [facility] (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 Type 2 diabetes mellitus with diabetic chronic kidney disease Surgical History History of dental surgery H/O colonoscopy Family History Father No problems noted. 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 1. Little interest or pleasure in doing things: not at all 2. Feeling down, depressed, or hopeless: not at all 3. Trouble falling or staying asleep, or sleeping too much: not at all 4. Feeling tired or having little energy: not at all 5. Poor appetite or overeating: not at all 6. Feeling bad about yourself - or that you are a failure or have let yourself or your family down: not at all 7. Trouble concentrating on things, such as reading the newspaper or watching television: not at all 8. Moving or speaking so slowly that other people could have noticed. Or the opposite - being so fidgety or restless that you have been moving around a lot more than usual: not at all 9. Thoughts that you would be better off or of hurting yourself in some way: not at all Total score: 0 Depression Screening Interpretation: Negative (is on Rx) Depression Screening Done: Yes 30278 - PHQ-9 Billing: Yes Source: Developed by Drs. Emiliano Ledezma, Ashly Pat, Rohit Tilley and colleagues, with an educational danette from [employer]. Thrive Questionnaire Date Thrive assessed: 11/18/23 AUDIT C Alcohol Use Questionnaire (AUDIT-C) 1. How often do you have a drink containing alcohol?: Never 3. How often do you have six or more drinks on one occasion?: Never Total Score: 0 Score Reviewed/Action Taken: Yes ELEUTERIO-7 AMB Questionnaire ELEUTERIO-7 Date ELEUTERIO - 7 assessed: 11/18/23 Source: Developed by Drs. Emiliano Ledezma, Ashly Pat, Rohit Tilley and colleagues, with an educational danette from [employer]. Review of Systems Const Denies chills, Denies fatigue, Denies fever(s) and Denies headache(s) ENT Denies dysphagia, Denies dizziness, Denies otalgia, Denies headache(s), Denies neck pain, Denies odynophagia and Denies sore throat Card Denies chest pain, Denies palpitations and Denies dyspnea Resp Denies cough, Denies dyspnea and Denies wheezing GI Denies abdominal pain, Denies constipation, Denies dysphagia, Denies heartburn, Denies diarrhea, Denies nausea, Denies odynophagia and Denies vomiting Denies dysuria, Denies nocturia and Denies urinary frequency Musc Reports back pain (on and off), Denies arthralgias, Denies joint swelling and Denies neck pain Skin/Breast Denies rash Neuro Denies dizziness and Denies headache(s) Psych Reports anxiety and Reports depression (Rx helping) Endo Denies fatigue and Denies palpitations Aller/Immun Denies wheezing Physical exam (Primary Care) Vital Signs: Last Vital Signs Pulse 63 03/02/24 09:51 BP 128/72 03/02/24 09:51 Pulse Ox 98 03/02/24 09:51 Oxygen Delivery Method Room Air 03/02/24 09:51 BMI result Body Mass Index 29.3 Tobacco/Smoking Status: Tobacco use Status Tobacco use date assessed 11/18/23 03/02/24 09:53 Patient Tobacco Use Status Former Tobacco user 03/02/24 09:53 Tobacco use type Cigarette 03/02/24 09:53 e-Cigarette/Vaping Use Never Used 03/02/24 09:53 PHQ-9: PHQ-9 Score PHQ-9: Total score 0 03/02/24 10:41 Depression Screening Interpretation: Negative (is on Rx) Thrive Assessment: Date of Thrive Assessment Date Thrive assessed 11/18/23 03/02/24 09:53 Const General: no acute distress and alert HENMT Ears: TM's normal bilaterally and EAC's normal Throat: Yes posterior oropharynx normal and Yes tonsils normal (no TP congestion noted) Neck Neck: Yes no lymphadenopathy and Yes supple Thyroid: Thyroid normal Resp Auscultation: clear to auscultation bilaterally, no rales and no wheezes Cardio Rate: regular rate Rhythm: regular rhythm Heart sounds: no murmurs GI Palpation (GI): Soft to palpation and nontender Auscultation: normal bowel sounds General: Yes no CVA tenderness Back/Spine/Pelvis Back: no CVA tenderness Thoracic/Lumbar Spine: No lumbar spinal tenderness Skin Rashes: no rashes Extrem General: Yes no clubbing, cyanosis or edema Results AMB Hemoglobin A1c AMB Hemoglobin A1c 5.2 % Last Edit by Samra Mcclelland CMA on 03/02/24 10:20 Results Reviewed Results Reviewed: Laboratory Last Values Hgb A1c (Clinic) 5.2 % (4.0-6.0) 03/02/24 09:53 Laboratory Tests 11/20/23 01/01/24 02/06/24 14:04 11:14 07:58 WBC Hgb Hct Plt Count Sodium Potassium Creatinine Estimated GFR Fasting Glucose 105 H Hgb A1c (Clinic) Hemoglobin A1c % 5.3 Calcium Phosphorus Magnesium GGT 34 AST 25 ALT 22 Triglycerides 61 Cholesterol 212 H LDL Cholesterol, Calc 150 H HDL Cholesterol 50 25-OH Vitamin D Total TSH 0.33 Free T4 0.92 PTH Intact Ur Specific [place] Urine Protein Urine Glucose (UA) Urine Blood Urine Nitrite Ur Leukocyte Esterase Microalb/Creat Ratio Ur Calcium 24 Hr 15 L Calcium/Creat 24 Hr 19 L 02/09/24 02/09/24 03/02/24 09:08 09:14 09:53 WBC 5.8 Hgb 11.2 L Hct 34.2 L Plt Count 219 Sodium 136 Potassium 5.5 H Creatinine 2.61 H Estimated GFR 26 Fasting Glucose Hgb A1c (Clinic) 5.2 Hemoglobin A1c % Calcium 8.6 Phosphorus 4.6 H Magnesium 2.2 GGT AST ALT Triglycerides Cholesterol LDL Cholesterol, Calc HDL Cholesterol 25-OH Vitamin D Total 43.8 TSH Free T4 PTH Intact 302.5 H Ur Specific [place] <= 1.005 Urine Protein Negative Urine Glucose (UA) 250 H Urine Blood Negative Urine Nitrite Negative Ur Leukocyte Esterase Negative Microalb/Creat Ratio 61.5 H Ur Calcium 24 Hr Calcium/Creat 24 Hr Assessment and Plan Assessment & Plan (1) Pure hypercholesterolemia: Code(s): E78.00 - Pure hypercholesterolemia, unspecified Plan: Results of his labs done a few weeks ago reviewed and discussed with patient - advised that his cholesterol levels have significantly increased from previous and his LDL cholesterol is now at 150 mg/dl His Atorvastatin was previously held a few months ago due to his elevated LFTs - these are now back to normal on his recent labs Reinforced low cholesterol diet Will try starting him back on statins for his high cholesterol but this time, will try him on low dose Rosuvastatin at 5 mg QD Will have him recheck his labs and fasting lipids in 3 months for follow-up (2) Hyperparathyroidism: Code(s): E21.3 - Hyperparathyroidism, unspecified Plan: His intact PTH level remains elevated and has gone up much higher than previous At this point, he will likely require parathyroidectomy but his advanced CKD may complicate his management Will refer him to endocrinology for further evaluation and management (3) Type 2 diabetes mellitus with diabetic chronic kidney disease: Code(s): E11.22 - Type 2 diabetes mellitus with diabetic chronic kidney disease Qualifiers: Chronic kidney disease stage: stage 3 (moderate) Chronic kidney disease stage 3 subtype: unspecified whether 3a or 3b Diabetes mellitus civilian jail officer insulin use: with detention use Qualified Code(s): E11.22 - Type 2 diabetes mellitus with diabetic chronic kidney disease; N18.30 - Chronic kidney disease, stage 3 unspecified; Z79.4 - mental health nurse (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 Plan: His HgbA1c was at 5.3% on his labs done a few weeks ago; in-office HgbA1c done today is at 5.2% (HgbA1c was previously at 5.0% a few months ago) - goal is <6.5% Reinforced diabetic diet Continue Lantus 8 units SQ Q HS and Farxiga 10 mg QD (this was started by nephrology for his CKD) Follow up with diabetic early childhood lead teacher as scheduled (4) Chronic kidney disease, stage 4 (severe): Code(s): N18.4 - Chronic kidney disease, stage 4 (severe) Plan: His renal function appears stable lately Continue Farxiga 10 mg QD and Lisinopril 2.5 mg QD Have emphasized again complete avoidance of all NSAIDs and tight control of his BP and blood sugar His abdominal US done in November 2023 also incidentally revealed (+) enlarged kidneys replaced by innumerable cysts consistent with autosomal dominant polycystic kidney disease and bilateral nonobstructing renal calculi Follow up with nephrology as scheduled (5) Essential hypertension: Code(s): I10 - Essential (primary) hypertension Plan: Reinforced low-sodium diet -? goal is systolic BP of at least 120 to 130 mm or less Continue Lisinopril 2.5 mg QD (6) Vitamin D deficiency: Code(s): E55.9 - Vitamin D deficiency, unspecified Plan: Continue Vitamin D2 02106 units once a week (7) Elevated LFTs: Comment: BASELINE LABS;: 03/30/2020 total bili 0.4, alk-phos is 165, AST/ALT is 27/34 11/20/23 06:50 Plt Count 219 Estimated GFR 24 Total Bilirubin 0.4 AST 134 H ALT 61 H Alkaline Phosphatase 153 H TSH 0.76 MONSE Screen NEGATIVE Anti-Mitochondrial Ab NEGATIVE Anti-Smooth Muscle Ab <20 Hepatitis A IgM Ab Nonreactive Hep Bs Antigen Negative Hep Bs Antibody NONREACTIVE Hep B Core Total Ab Nonreactive Hepatitis C Ab (EIA) Nonreactive HIV 1&2 Ab/P24 Ag 4thGn Nonreactive CURRENT LABS 11/19/2404/11/2404 14:0401:0903:57 Estimated GFR 19 Total Bilirubin 0.2 AST 17 ALT 15 Alkaline Phosphatase 137 H C-Reactive Protein 0.27 Lipase 65 MONSE Screen NEGATIVE Anti-Mitochondrial Ab NEGATIVE Anti-Smooth Muscle Ab <20 Hepatitis A IgM Ab Nonreactive Hep Bs Antigen Negative Hep Bs Antibody NONREACTIVE Hep B Core Total Ab Nonreactive Hepatitis C Ab (EIA) Nonreactive HIV 1&2 Ab/P24 Ag 4thGn Nonreactive LIVER FIBROSIS PANEL AND FERRITIN NOT OBTAINED ULTRASOUND OF THE ABDOMEN Code(s): R79.89 - Other specified abnormal findings of blood chemistry Plan: His LFTs are back to normal on his recent labs - was likely due to effects of his previous statin Rx (Atorvastatin) Abdominal US done in November 2023 revealed findings consistent with hepatic steatosis Advised again that losing weight can also help with his LFTs (8) Hypothyroidism: Code(s): E03.9 - Hypothyroidism, unspecified Qualifiers: Hypothyroidism type: acquired Qualified Code(s): E03.9 - Hypothyroidism, unspecified Plan: His TFTs remained normal on his recent labs Continue Levothyroxine 125 mcg QD (9) Asthma: Code(s): J45.909 - Unspecified asthma, uncomplicated Qualifiers: Asthma severity: mild Asthma persistence: intermittent Asthma complication type: uncomplicated Qualified Code(s): J45.20 - Mild intermittent asthma, uncomplicated Plan: Stable - continue Albuterol HFA 2 inhalations up to 4 times a day as needed Follow up with pulmonary as scheduled (10) GERD (gastroesophageal reflux disease): Code(s): K21.9 - Gastro-esophageal reflux disease without esophagitis Qualifiers: Esophagitis presence: without esophagitis Qualified Code(s): K21.9 - Gastro-esophageal reflux disease without esophagitis Plan: Dietary restrictions reinforced Continue Omeprazole 20 mg QD (11) Epilepsy: Code(s): G40.909 - Epilepsy, unspecified, not intractable, without status epilepticus Qualifiers: Epilepsy type: unspecified Intractability: not intractable Status epilepticus: without status epilepticus Qualified Code(s): G40.909 - Epilepsy, unspecified, not intractable, without status epilepticus Plan: EEG done in the past showed findings consistent with partial complex seizure - patient states that he has not had any seizures lately Continue Zonisamide 100 mg BID Follow-up with Neurology as scheduled (12) Hearing loss: Code(s): H91.90 - Unspecified hearing loss, unspecified ear Qualifiers: Hearing loss type: unspecified Laterality: unspecified laterality Qualified Code(s): H91.90 - Unspecified hearing loss, unspecified ear Plan: Per request, will refer for hearing evaluation (13) Schizoaffective disorder: Code(s): F25.9 - Schizoaffective disorder, unspecified Qualifiers: Schizoaffective disorder type: unspecified Qualified Code(s): F25.9 - Schizoaffective disorder, unspecified Plan: Continue Lamotrigine 200 mg twice a day, Zyprexa 5 mg daily at bedtime and Lorazepam 0.5 mg 3 times a day as needed Follow-up with Psychiatry as scheduled (14) Overweight (BMI 25.0-29.9): Code(s): E66.3 - Overweight Plan: Reinforced diet/exercise as tolerated/lose weight Plan Follow up in 3 months Orders: Orders AMB Hemoglobin A1c Today Z13.9 - Encounter for screening, unspecified Hemoglobin A1c 3 Months E11.9 - Type 2 diabetes mellitus without complications Lipid Panel 3 Months E78.00 - Pure hypercholesterolemia, unspecified TSH reflex Free T4 3 Months E78.00 - Pure hypercholesterolemia, unspecified UA CC w/rflx Micro + Cult 3 Months R30.0 - Dysuria Microalbumin, Random (w Creat) 3 Months E11.9 - Type 2 diabetes mellitus without complications Vitamin D 25-OH Total 3 Months E55.9 - Vitamin D deficiency, unspecified Vitamin B12 and Folate 3 Months E53.8 - Deficiency of other specified B group vitamins Complete Blood Count Auto Diff 3 Months D64.9 - Anemia, unspecified Comprehensive [place]. Panel Fast 3 Months E78.00 - Pure hypercholesterolemia, unspecified Referrals Speech and Hearing Referral H91.90 - Unspecified hearing loss, unspecified ear Endocrinology Referral E11.22 - Type 2 diabetes mellitus with diabetic chronic kidney disease, E21.3 - Hyperparathyroidism, unspecified, N18.30 - Chronic kidney disease, stage 3 unspecified, N18.4 - Chronic kidney disease, stage 4 (severe), Z79.4 - mental health nurse (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 Medications: New rosuvastatin 5 mg PO DAILY 30 days 30 tabs 3RF Discontinued atorvastatin Discontinued Reason: Doctor's Order 10 mg PO BEDTIME 90 tabs 1RF Coding Level of Care Code Est Pt Level 4 (85680) Complex EM visit Add On G2211 Diagnoses Pure hypercholesterolemia E78.00 Hyperparathyroidism E21.3 Type 2 diabetes mellitus with stage 3 chronic kidney disease, with long-term current use of insulin, unspecified whether stage 3a or 3b CKD E11.22; N18.30; Z79.4 Chronic kidney disease stage: stage 3 (moderate) Chronic kidney disease stage 3 subtype: unspecified whether 3a or 3b Diabetes mellitus civilian jail officer insulin use: with detention use Chronic kidney disease, stage 4 (severe) N18.4 Essential hypertension I10 Vitamin D deficiency E55.9 Elevated LFTs R79.89 Acquired hypothyroidism E03.9 Hypothyroidism type: acquired Mild intermittent asthma without complication J45.20 Asthma severity: mild Asthma persistence: intermittent Asthma complication type: uncomplicated Gastroesophageal reflux disease without esophagitis K21.9 Esophagitis presence: without esophagitis Nonintractable epilepsy without status epilepticus, unspecified epilepsy type G40.909 Epilepsy type: unspecified Intractability: not intractable Status epilepticus: without status epilepticus Hearing loss, unspecified hearing loss type, unspecified laterality H91.90 Hearing loss type: unspecified Laterality: unspecified laterality Schizoaffective disorder, unspecified type F25.9 Schizoaffective disorder type: unspecified Overweight (BMI 25.0-29.9) E66.3
== END 2024-03-02 10:48 | disposition home or self-care (01) ==
PROVIDERS: PCP Internal Medicine; Visit Provider Internal Medicine
DX: E78.00 Pure hypercholesterolemia, unspecified (principal); E21.3 Hyperparathyroidism, unspecified; E11.22 Type 2 diabetes mellitus with diabetic chronic kidney disease; N18.30 Chronic kidney disease, stage 3 unspecified; Z79.4 Long term (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; N18.4 Chronic kidney disease, stage 4 (severe); I12.9 Hypertensive chronic kidney disease with stage 1 through stage 4 chronic kidney disease, or unspecified chronic kidney disease; E55.9 Vitamin D deficiency, unspecified; R79.89 Other specified abnormal findings of blood chemistry; E03.9 Hypothyroidism, unspecified; G40.909 Epilepsy, unspecified, not intractable, without status epilepticus; F25.9 Schizoaffective disorder, unspecified; J45.20 Mild intermittent asthma, uncomplicated; K21.9 Gastro-esophageal reflux disease without esophagitis; H91.90 Unspecified hearing loss, unspecified ear; E66.3 Overweight; Z13.9 Encounter for screening, unspecified
CPT/HCPCS: 83036; 99214; G2211

== ENCOUNTER 2024-03-18 10:38 | Emergency (ER) | payer OTHER, SELFPAY ==
[2024-03-18 10:43] VITALS: BP 122/82; PULSE 61; O2SAT 98
[2024-03-18 10:48] VITALS: BP 115/66; PULSE 58; RESP 16; TEMP 36.9; O2SAT 99; BMI 26.8
--- NOTE | 2024-03-18 11:13 | ED.URI ---
HPI - URI/Sore Throat General Chief Complaint: Upper Respiratory Symptoms Stated Complaint: PT ?'S COVID,SOB,WEAK,RUNNY NOSE PER EMS Time Seen by Provider: 03/18/24 10:40 Source: patient Mode of arrival: EMS Limitations: no limitations History of Present Illness ED Provider: SHERRI DESHPANDE Narrative: 53 yo male with PMH of seizures, DM, asthma, HTN, CKD, HLD, hypothyroidism here with c/o COVID exposure at work yesterday started to feel ill with runny nose, body aches, loose stools has no chest pain or shortness of breath. Feels drained. Came in for COVID test. Has hx of 4 vaccines in past. MD elicited complaint: cough and rhinorrhea Pertinent past history: asthma Onset (ago): day(s) (1) Consistency: intermittent Severity: mild Description of mucous: clear Able to tolerate fluids by mouth: Yes Exacerbating factors: exertion Relieving factors: nothing Context: sick contacts Associated symptoms: myalgias, rhinorrhea and cough Treatments prior to arrival: none Related Data Home Medications ?Medication ?Instructions ?Recorded ?Confirmed lamotrigine 200 mg tablet 200 mg PO BID 05/08/20 03/02/24 lorazepam 0.5 mg tablet 0.5 mg PO TID PRN Anxiety 05/08/20 03/02/24 trazodone 50 mg tablet 50 mg PO BEDTIME PRN Insomnia 05/08/20 03/02/24 pen needle, diabetic 32 gauge x #50 ea 07/25/20 03/02/2432 olanzapine 5 mg tablet 5 mg PO BEDTIME 08/16/21 03/02/24 aripiprazole 5 mg tablet 5 mg PO DAILY 12/03/21 03/02/24 dapagliflozin propanediol 10 mg 10 mg PO DAILY 07/30/22 03/02/24 tablet (Farxiga) fluoxetine 40 mg capsule 40 mg PO DAILY 12/18/23 03/02/24 melatonin 5 mg tablet 5 mg PO BEDTIME PRN 12/18/23 03/02/24 zonisamide 100 mg capsule 100 mg PO QID 12/18/23 03/02/24 Previous Rx's ?Medication ?Instructions ?Recorded sildenafil 50 mg tablet 50 mg PO DAILY PRN sexual activity 02/08/22 #5 tabs insulin glargine 100 unit/mL (3 8 unit (0.08 mL) subcut QPM 90 04/15/23 mL) subcutaneous pen (Lantus days #12 mL Solostar U-100 Insulin) omeprazole 20 mg capsule,delayed 20 mg PO DAILY #90 caps 05/22/23 release alcohol swabs 1 pad topical QID #200 ea 07/16/23 blood sugar diagnostic (OneTouch #100 ea 07/16/23 Ultra Test strips) blood-glucose meter (OneTouch #1 ea 07/16/23 Ultra2 Meter kit) omega 0-diw-pel-fish oil 1,200 mg 1 cap PO DAILY #90 caps 07/26/23 (144 mg-216 mg) capsule (Fish Oil) pen needle, diabetic 32 gauge x 1 ea subcut DAILY #100 ea 10/25/23 (BD Ultra-Fine Leeanne Pen Needle) fluticasone propionate 220 1 puff PO BID #36 grams 10/27/23 mcg/actuation HFA aerosol inhaler bisacodyl 5 mg tablet,delayed 10 mg (2 x 5 mg) PO BEDTIME 30 11/27/23 release (Dulcolax (bisacodyl)) days #60 tabs acetaminophen 500 mg tablet 500 mg PO Q6H PRN fever or pain 12/06/23 (Tylenol Extra Strength) #30 tabs morphine 15 mg immediate release 15 mg PO Q6H PRN pain #10 tabs 12/06/23 tablet methocarbamol 750 mg tablet 750 mg PO Q8H low back pain 30 12/16/23 days #90 tabs calcium polycarbophil 625 mg 625 mg PO BID PRN for constipation 12/24/23 tablet (Fiber (calcium #60 tabs polycarbophil)) levothyroxine 125 mcg tablet 125 mcg PO DAILY #90 tabs 12/28/23 albuterol sulfate 90 mcg/actuation 2 puff inhalation Q6H PRN 01/14/24 aerosol inhaler (ProAir HFA) shortness of breath or wheezing 30 days #8.5 grams lisinopril 2.5 mg tablet 2.5 mg PO BID #180 tabs 01/24/24 ergocalciferol (vitamin D2) 1,250 1,250 mcg PO QWEEK #12 caps 01/26/24 mcg (50,000 unit) capsule rosuvastatin 5 mg tablet 5 mg PO DAILY 30 days #30 tabs 03/02/24 nirmatrelvir 150 mg-ritonavir 100 See Rx Instructions PO .COMPLEX 03/18/24 mg tablets in a dose pack #20 ea (Paxlovid) Allergies Allergy/AdvReac Type Severity Reaction Status Date / Time atorvastatin AdvReac Intermediate elevated Verified 03/18/24 11:04 LFTs Review of Systems Review of Systems: Constitutional : No Fever, No Chills, pos Fatigue ENT/Mouth : No sore throat, pos Rhinorrhea Eyes: No Eye Pain, No Swelling, No Redness Cardiovascular : No Chest Pain, No SOB, No Dyspnea on Exertion Respiratory : pos Cough, No Sputum Gastrointestinal : No Nausea, No Vomiting, No Diarrhea, No abdominal Pain Genitourinary : No Dysuria, No Urinary Frequency, No Hematuria, Musculoskeletal : No joint pain, pos Myalgias, No Joint Swelling Skin : No Skin Lesions, No rash Neuro : No Weakness, No Numbness, No Dizziness, no Headache Psych : No Anxiety/Panic, No Depression All other systems reviewed and are negative [facility] Past Medical History Attestation statement: The following information was validated with the patient. 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 Oriented X3. No acute distress. Eyes: Pupils equal, round and reactive to light. ENT: Pharynx normal. Neck: Normal inspection. Neck supple. CVS: Normal heart rate and rhythm. Pulses normal. Respiratory: No respiratory distress. Breath sounds normal. Abdomen: Soft and non-tender. Skin: Skin warm and dry. Normal skin color. Extremities: No lower extremity edema. Neuro: Oriented X 3. No motor deficit. No sensory deficit. Medical Decision Making Medical Decision Making MDM Narrative: 53 yo male with PMH of seizures, DM, asthma, HTN, CKD, HLD, hypothyroidism here with c/o feeling like he has COVID after exposure no chest pain or dyspne just feels lousy x 1 day. He is not toxic appearing. Has multiple medications he is vaccinated x 4. Would take paxlovid but needs to have his med interaction done. At this time COVID swab and Cr done. He has no chest pain/dyspnea to suggest PNA or VTE Differential Diagnosis Differential Diagnoses: The differential diagnosis associated with the presentation includes viral syndrome, COVID Admission/Observation Consideration of admission/observation: Escalation of care including admission/observation considered no hypoxia no signs of pneumonia can be DC home patient will speak to his provider about taking the medication Lab Data [facility] Lab Attestation statement: I reviewed the patient's lab results. 03/18/24 11:14 Labs: Lab Results 03/18/24 03/18/24 Range/Units 10:50 11:14 Sodium 141 (135-145) mmol/L Potassium 4.4 (3.3-5.1) mmol/L Chloride 108 (96-108) mmol/L Carbon Dioxide 26 (22-29) mmol/L Anion Gap 11 L (12-20) BUN 39 H (9-16) mg/dL Creatinine 2.73 H (0.5-1.4) mg/dL Estim Creat Clear Calc 31.6 Estimated GFR 25 Random Glucose 96 (60-115) mg/dL Calcium 8.2 L (8.4-10.2) mg/dL Influenza Type A (PCR) NEGATIVE (Negative) Influenza Type B (PCR) NEGATIVE (Negative) RSV RNA Qual (PCR) NEGATIVE (Negative) SARS-CoV-2 RNA (RT-PCR) POSITIVE A (Negative) Independent Historian Clinical information obtained from an independent historian. History obtained from or confirmed by: EMS External Record Review External record reviewed: Prior outpatient labs Prescription Management I considered prescription management with: Antiviral Discharge Plan Discharge Clinical Impression: COVID-19 Patient Disposition: Home, Self-Care Instructions: COVID-19 (Coronavirus Disease 2019) (ED) Additional Instructions: after review of your medications interactions with aripiprazole and trazodone can increase concentrations you would want to monitor side effects and likely cut your trazodone in half. you have normal oxygen levels buy a pulse oximeter if you can to monitor you are fully vaccinated and that is your best protection against severe covid your kidney function is right at the cusp for renal dosing but a 5 day course is unlikely to have an effect on your kidneys take care of yourself, monitor your breathing. return for oxygen levels below 92%, severe chest pain, confusion, unable to eat or drink, fainting, you are so short of breath you cannot walk to the bathroom talk to your doctor about the paxlovid as discussed HOLD YOUR ATORVASTATIN WHILE ON PAXLOVID AND FOR 5 DAYS AFTER Prescriptions: New Paxlovid 150-100 mg tablets,dose pack See Rx Instructions .ROUTE .COMPLEX Qty: 20 0RF Rx Instructions: take ONE 150 mg tablet of nirmatrelvir with ONE 100 mg tablet of ritonavir twice daily for 5 days No Action sildenafil 50 mg tablet 50 mg PO DAILY PRN (Reason: sexual activity) Qty: 5 0RF Rx Instructions: administer 30 minutes to 4 hours before activity insulin glargine [Lantus Solostar U-100 Insulin] 100 unit/mL (3 mL) insulin pen 8 unit subcut QPM 90 Days Qty: 12 3RF (DME) blood-glucose meter [OneTouch Ultra2 Meter] Kit See Rx Instructions .ROUTE .MEDSUPPLY Qty: 1 0RF Rx Instructions: As directed ([facility]) OneTouch Ultra Test Strip See Rx Instructions .ROUTE .MEDSUPPLY Qty: 100 5RF Rx Instructions: As directed once a day alcohol swabs Pads, Medicated 1 pad topical QID Qty: 200 12RF omega 1-aao-xub-fish oil [Fish Oil] 1,200 (144-216) mg capsule 1 cap PO DAILY Qty: 90 3RF pen needle, diabetic [BD Ultra-Fine Leeanne Pen Needle] 32 gauge x 5/32 needle 1 ea subcut DAILY Qty: 100 2RF Flovent HFA 220 mcg/actuation HFA aerosol inhaler 1 puff PO BID Qty: 36 3RF bisacodyl [Dulcolax (bisacodyl)] 5 mg tablet,delayed release (DR/EC) 10 mg PO BEDTIME 30 Days Qty: 60 1RF Fiber (calcium polycarbophil) 625 mg tablet 625 mg PO BID PRN (Reason: for constipation) Qty: 60 6RF levothyroxine 125 mcg tablet 125 mcg PO DAILY Qty: 90 1RF albuterol sulfate [ProAir HFA] 90 mcg/actuation HFA aerosol inhaler 2 puff inhalation Q6H PRN (Reason: shortness of breath or wheezing) 30 Days Qty: 8.5 3RF lisinopril 2.5 mg tablet 2.5 mg PO BID Qty: 180 0RF ergocalciferol (vitamin D2) 1,250 mcg (50,000 unit) capsule 1,250 mcg PO QWEEK Qty: 12 2RF acetaminophen [Tylenol Extra Strength] 500 mg tablet 500 mg PO Q6H PRN (Reason: fever or pain) Qty: 30 0RF morphine 15 mg tablet 15 mg PO Q6H PRN (Reason: pain) Qty: 10 0RF Rx Instructions: The patient may ask for partial fill; Partial Fill upon patient request. lorazepam 0.5 mg tablet 0.5 mg PO TID PRN (Reason: Anxiety) lamotrigine 200 mg tablet 200 mg PO BID trazodone 50 mg tablet 50 mg PO BEDTIME PRN (Reason: Insomnia) zonisamide 100 mg capsule 100 mg PO QID Farxiga 10 mg tablet 10 mg PO DAILY aripiprazole 5 mg tablet 5 mg PO DAILY methocarbamol 750 mg tablet 750 mg PO Q8H 30 Days Qty: 90 1RF rosuvastatin 5 mg tablet 5 mg PO DAILY 30 Days Qty: 30 3RF (DME) pen needle, diabetic 32 gauge x 5/32 needle See Rx Instructions subcut .MEDSUPPLY Qty: 50 Rx Instructions: As directed olanzapine 5 mg tablet 5 mg PO BEDTIME melatonin 5 mg tablet 5 mg PO BEDTIME PRN omeprazole 20 mg capsule,delayed release(DR/EC) 20 mg PO DAILY Qty: 90 2RF fluoxetine 40 mg capsule 40 mg PO DAILY Stand Alone Forms: Work/School Release Print Language: Liberian
[2024-03-18 11:36] VITALS: O2SAT 98
[2024-03-18 11:36] LABS: Anion Gap 11 (12-20); Blood Urea Nitrogen 39 mg/dL (9-16); Calcium 8.2 mg/dL (8.4-10.2); Carbon Dioxide 26 mmol/L (22-29); Chloride 108 mmol/L (96-108); Creatinine Clr Calc Pharmacy 31.6; Estimated Glomerular Filt Rate 25; Glucose Random 96 mg/dL (60-115); Potassium 4.4 mmol/L (3.3-5.1); Sodium 141 mmol/L (135-145)
[2024-03-18 11:39] LABS: Influenza A PCR NEGATIVE (Negative); Influenza B PCR NEGATIVE (Negative); Resp Syncy Virus RNA Qual PCR NEGATIVE (Negative); SARS COV2 PCR INHOUSE POSITIVE (Negative)
[2024-03-18 12:19] VITALS: BP 108/61; PULSE 54; RESP 16; TEMP 36.7; O2SAT 98
== END 2024-03-18 12:20 | disposition home or self-care (01) ==
PROVIDERS: Emergency Provider Emergency Medicine; PCP Internal Medicine
DX: U07.1 COVID-19 (principal); Z79.899 Other long term (current) drug therapy
CPT/HCPCS: 0241U; 36415; 80048; 99283; 99284

== ENCOUNTER → 2024-04-13 23:59 | Outpatient (BNV) | payer OTHER, SELFPAY | PROVIDERS: PCP Internal Medicine; Visit Provider Internal Medicine | DX: E11.65 Type 2 diabetes mellitus with hyperglycemia (principal); F25.9 Schizoaffective disorder, unspecified; G47.00 Insomnia, unspecified | CPT/HCPCS: G0179 ==

== ENCOUNTER 2024-04-15 10:09 | Outpatient (AMB) | payer OTHER, SELFPAY ==
--- NOTE | 2024-04-15 10:17 | A.OFFVIS_ITS ---
Vital Signs 04/15/24 10:20 Height 5 ft 9 in Weight 180 lb 5.41 oz BMI 26.6 BP 110/66 Blood Pressure Location Rt brachial Position Sitting Pulse 47 L Pulse Source Pulse Oximeter Intake Visit Reasons: [id number] Intake Note: New patient referred by PCP for Diabetes Mellitus Management. Last Diabetic Eye exam: Within the year Last Podiatry Visit: Patient was seen by Dr. Campos, needs a new referral to Dr. Serrano. Random Glucose: 93 mg/dl HgA1C: 5.2% 03/02/2024 Facilities Clerk Required: No Accompanied by: Self / Same As Patient Allergies atorvastatin Adverse Reaction (Intermediate, Verified 04/15/24 10:23) elevated LFTs HPI Comments Details: Patient is a 54 yo male with DM type 2 diagnosed at 22 years of age, who presents for continued management of diabetes. Patient was last seen by Meron Diop NP on 01/23/21 Past medical history: HTN, Vit D deficiency, bipolar disorder and schizophrenia, Chronic kidney disease, stage 3 Micro and macrovascular complications: + nephropathy, + neuropathy, Diabetes medications: Lantus 8 units, Farxiga 10 mg QD Blood glucose monitoring : Unfortunately, patient did not bring his log book or glucometer to follow-up visit Symptoms reported: no numbness, tingling, cramping in lower extremities Hypoglycemia: Denies, Hyperglycemia: denies polyuria, denies nocturia, Exercise: walking 2 hours every other day Eye exam: within a yr ago - reports no dm retinopathy, cararct Laboratory Tests 08/17/21 08/17/21 08:12 08:12 Creatinine 2.27 H Estimated GFR 31 Hemoglobin A1c % 7.4 Triglycerides 182 Cholesterol 137 LDL Cholesterol, Calc 64 HDL Cholesterol 37 25-OH Vitamin D Total 29.9 [facility].49 [facility] Medical History (Updated 03/18/24 @ 11:42 by Laurita Franco DO) Polycystic kidney disease Lumbar spondylosis Degenerative joint disease of thoracic spine Overweight (BMI 25.0-29.9) Chronic kidney disease, stage 4 (severe) Prolonged QT interval Hyperkalemia Memory impairment Vitamin D deficiency Hypothyroidism Seizures Anxiety Fatty liver IBS (irritable colon syndrome) GERD (gastroesophageal reflux disease) Obesity (BMI 30-39.9) Schizoaffective disorder Asthma Epilepsy Essential hypertension 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 Cognitive needs: No Hearing needs: No Vision needs: Yes (glasses) Physical Exam Absence of Cushingoid features. Absence of acromegalic features. Neck exam reveals nl size thyroid about 15 gms. No thyroid nodules palpable. No carotid bruits present. Lungs CTA. Heart S1 S2, Reg R/R. No M/R/ G. Skin exam reveals absence of vitiligo or acanthosis nigricans. Abdominal exam reveals Soft NT/ND with NA BS. No organomegaly present. Neck Other: . Extrem Other: Visual exam of foot performed. No ulcerations or open lesions. No onchomycosis, no callouses.Pulses 2 + distally Sensation intact to monofilament exam. 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 Will talk to the patient about starting a sensor. I gave him a prescription for Dexcom G7. We will refer the patient for diabetic Education. Can not make any changes to the patient's regimen because of lack of data. Will have patient follow up with primary care diabetes team here. 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
[2024-04-15 10:20] VITALS: BP 110/66; PULSE 47; BMI 26.6
[2024-04-15 10:35] LABS: Glucose, Whole Blood 93 mg/dL (60-115)
== END 2024-04-15 10:53 | disposition home or self-care (01) ==
PROVIDERS: PCP Internal Medicine; Visit Provider Internal Medicine Endocrinology, Diabetes & Metabolism
DX: E11.65 Type 2 diabetes mellitus with hyperglycemia (principal); Z79.4 Long term (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
CPT/HCPCS: 99214

== ENCOUNTER → 2024-04-15 10:09 | Outpatient (BNVA) | payer OTHER, SELFPAY | PROVIDERS: PCP Internal Medicine; Visit Provider Internal Medicine Endocrinology, Diabetes & Metabolism | DX: E11.65 Type 2 diabetes mellitus with hyperglycemia (principal); E11.21 Type 2 diabetes mellitus with diabetic nephropathy; E11.22 Type 2 diabetes mellitus with diabetic chronic kidney disease; E11.40 Type 2 diabetes mellitus with diabetic neuropathy, unspecified; N18.4 Chronic kidney disease, stage 4 (severe); Z79.4 Long term (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; Z79.84 Long term (current) use of oral hypoglycemic drugs | CPT/HCPCS: 82947; 99212 ==

== ENCOUNTER 2024-04-19 10:05 | Outpatient (AMB) | payer OTHER, SELFPAY ==
[2024-04-19 10:09] VITALS: BMI 25.9
--- NOTE | 2024-04-19 10:09 | A.OFFVIS_ITS ---
VS Expanded 04/19/24 10:09 04/20/24 14:30 Height 5 ft 9 in 5 ft 9 in Weight 175 lb 4.28 oz 175 lb BMI 25.9 25.8 Intake Visit Reasons: T2DM/CONFIRMED Allergies atorvastatin Adverse Reaction (Intermediate, Verified 04/15/24 10:23) elevated LFTs Nutrition Presentation Details: Pt presents for MNt f/u for T2DM Pt reports doing well, no concerns expressed food frequency fruits : 1-2/day or juice diluted with water choosing raspberries/grapes fish: once/a week vegetables: 2x/w starches : choosing variety whole grains dairy: 3 /day in cereal most of the time Brought Bg record and 14 d bg average at 132 mg/dl Pt has questions regarding foods and potassium content BS Monitoring Most Recent Diabetes Results: Microalb/Creat Ratio 61.5 ug/mg cr (<30) H 02/09/24 Cholesterol 212 mg/dL (<200) H 02/06/24 HDL Cholesterol 50 mg/dL (>40) 02/06/24 Triglycerides 61 mg/dL (<150) 02/06/24 Creatinine 2.73 mg/dL (0.5-1.4) H 03/18/24 Blood Urea Nitrogen 39 mg/dL (9-16) H 03/18/24 Sodium 141 mmol/L (135-145) 03/18/24 Potassium 4.4 mmol/L (3.3-5.1) 03/18/24 Chloride 108 mmol/L (96-108) 03/18/24 Carbon Dioxide 26 mmol/L (22-29) 03/18/24 Calcium 8.2 mg/dL (8.4-10.2) L 03/18/24 AST 25 U/L (5-37) 02/06/24 ALT 22 U/L (0-40) 02/06/24 Total Protein 7.2 g/dL (6.5-8.0) 02/06/24 Albumin 4.0 g/dL (3.5-5.0) 02/09/24 LKM-[id number]-Dv.Jeor Equation Height: 5 ft 9 in Weight: 175 lb Resting Metabolic Rate: 1632.61 Calculated Activity Level: Mild Activity Calories Needed to Maintain Weight: 2244.84 [facility] Medical History (Updated 03/18/24 @ 11:42 by Laurita Franco DO) Polycystic kidney disease Lumbar spondylosis Degenerative joint disease of thoracic spine Overweight (BMI 25.0-29.9) Chronic kidney disease, stage 4 (severe) Prolonged QT interval Hyperkalemia Memory impairment Vitamin D deficiency Hypothyroidism Seizures Anxiety Fatty liver IBS (irritable colon syndrome) GERD (gastroesophageal reflux disease) Obesity (BMI 30-39.9) Schizoaffective disorder Asthma Epilepsy Essential hypertension Pure hypercholesterolemia [facility] (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 Type 2 diabetes mellitus with diabetic chronic kidney disease Surgical History History of surgery on lower extremity History of dental surgery H/O colonoscopy Family History Father No problems noted. 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 Cognitive needs: No Hearing needs: No Vision needs: Yes (glasses) Assessment & Plan Assessment & Plan (1) Type 2 diabetes mellitus with hyperglycemia: Code(s): E11.65 - Type 2 diabetes mellitus with hyperglycemia Category: Medical Qualifiers: Diabetes mellitus custodial insulin use: with custodial use Qualified Code(s): E11.65 - Type 2 diabetes mellitus with hyperglycemia; Z79.4 - [facility] (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 Plan: Continue reinforcing healthy plate method, answered question regarding potassium content of foods per Pt's request Estimated kilocalorie needs as per 25-30 kcal/kg bw (85 kg): 2823-1047 (40% carb, 30% fats) Estimated protein needs as per 1.0 g/kg BW: 79 g Estimated fluid intake as per 30 mL/kg bw: 2300 ml/d, unless otherwise specified by MD sodium < 2300 mg/d unless otherwise specified by MD Medications: Discontinued blood-glucose sensor ([employer] G7 Sensor device) Discontinued Reason: Doctor's Order As directed change every 10 days 3 ea 5RF Coding Level of Care Code Nutr Indiv Subseq (47738) Diagnoses Type 2 diabetes mellitus with hyperglycemia, with long-term current use of insulin E11.65; Z79.4 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
[2024-04-21 08:41] VITALS: BMI 25.8
== END 2024-04-19 10:49 | disposition home or self-care (01) ==
PROVIDERS: PCP Internal Medicine; Visit Provider Dietitian, Registered
DX: E11.65 Type 2 diabetes mellitus with hyperglycemia (principal); Z79.4 Long term (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

== ENCOUNTER → 2024-04-19 10:05 | Outpatient (BNVA) | payer OTHER, SELFPAY | PROVIDERS: PCP Internal Medicine; Visit Provider Dietitian, Registered | DX: E11.65 Type 2 diabetes mellitus with hyperglycemia (principal); E11.22 Type 2 diabetes mellitus with diabetic chronic kidney disease; N18.4 Chronic kidney disease, stage 4 (severe); E66.09 Other obesity due to excess calories; Z68.25 Body mass index [BMI] 25.0-25.9, adult; Z79.4 Long term (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; Z71.3 Dietary counseling and surveillance | CPT/HCPCS: 97803 ==

== ENCOUNTER 2024-04-30 07:47 | Outpatient (REF) | payer OTHER, SELFPAY ==
[2024-04-30 07:59] LABS: MANUAL DIFF FLAG NO
[2024-04-30 08:29] LABS: Basophils Percent Auto 0.7 % (0-2); Eosinophils Absolute Auto 0.2 X10*3/uL (0.0-0.4); Eosinophils Percent Auto 3.2 % (0-4); Hematocrit 37.5 % (42.0-52.0); Hemoglobin 12.5 g/dl (14.0-18.0); Imm Gran Abs Auto 0.03 X10*3/uL (0.00-0.03); Imm Gran Pct Auto 0.5 % (0.0-0.4); Lymphocytes Absolute Auto 1.3 X10*3/uL (1.2-4.9); Mean Corpuscular HGB Conc 33.3 g/dl (31.0-36.0); Mean Corpuscular Hemoglobin 30.3 pg (27.0-33.0); Mean Corpuscular Volume 90.8 fL (80.0-98.0); Mean Platelet Volume 9.1 fL (9.4-12.4); Monocytes Absolute Auto 0.3 X10*3/uL (0.1-1.2); Monocytes Percent Auto 4.6 % (2-11); Neutrophils Absolute Auto 3.9 x10*3/uL (2.0-8.3); Platelet Count 202 X10*3/uL (160-400); Red Blood Count 4.13 X10*6/uL (4.60-5.80); Red Cell Distribution Width 13.1 % (11.0-16.0); White Blood Count 5.7 X10*3/uL (4.8-10.8)
[2024-04-30 08:32] LABS: Appearance Urine Clear; Color Urine Yellow; Glucose Urine UA 250 mg/dL (Negative); Leukocyte Esterase Urine Negative (Negative); Nitrite Urine Negative (Negative); PH 5.5 (5.0-9.0); Specific Gravity - Urine <= 1.005 (1.005-1.025); Urine Blood Negative (Negative); Urine Ketones Negative (Negative); Urine Protein Negative (Neg-Trace)
[2024-04-30 09:17] LABS: Alanine Aminotransferase 20 U/L (0-40); Albumin Level 4.4 g/dL (3.5-5.0); Alkaline Phosphatase 158 U/L (39-117); Anion Gap 12 (12-20); Aspartate Amino Transferase 22 U/L (5-37); Bilirubin Total 0.4 mg/dL (0.0-1.0); Blood Urea Nitrogen 55 mg/dL (9-16); Calcium 9.3 mg/dL (8.4-10.2); Carbon Dioxide 23 mmol/L (22-29); Chloride 112 mmol/L (96-108); Cholesterol 124 mg/dL (<200); Estimated Glomerular Filt Rate 22; Glucose Fasting 91 mg/dL (60-99); HDL Cholesterol 43 mg/dL (>40); LDL Cholesterol Calculated 63 mg/dL (<100); Potassium 4.6 mmol/L (3.3-5.1); Sodium 142 mmol/L (135-145); TSH reflex Free T4 0.25 uIU/mL (0.32-4.0); Total Protein 7.3 g/dL (6.5-8.0); Triglycerides 94 mg/dL (<150); Vitamin D 25-OH Total 58.5 ng/mL (>30)
[2024-04-30 09:19] LABS: Creatinine Urine 26.78 mg/dL; Microalbum/Creatinine Ratio Ur 67.2 ug/mg cr (<30)
[2024-04-30 09:30] LABS: Estimated Average Glucose 105 mg/dL; Hemoglobin A1c % 5.3 % (<6.0); Total Hemoglobin (HGBA1C) 3356.2691 umol/L
[2024-04-30 09:34] LABS: Folate 10.9 ng/mL (> or = 4.0); Vitamin B12 882 pg/mL (200-900)
[2024-04-30 11:03] LABS: Free T4 (Free Thyroxine) 0.95 ng/dL (0.71-1.85)
[2024-05-04 22:50] LABS: Glutamic acid decarboxylase Ab 14 IU/mL (<5)
== END 2024-04-30 07:48 | disposition home or self-care (01) ==
LOC: HO.LAB 07:47
PROVIDERS: Absent Provider Internal Medicine Endocrinology, Diabetes & Metabolism; PCP Internal Medicine; Visit Provider Internal Medicine
DX: D64.9 Anemia, unspecified (principal); E78.00 Pure hypercholesterolemia, unspecified; E55.9 Vitamin D deficiency, unspecified; E11.9 Type 2 diabetes mellitus without complications; R30.0 Dysuria; E53.8 Deficiency of other specified B group vitamins; E11.65 Type 2 diabetes mellitus with hyperglycemia; Z79.4 Long term (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
CPT/HCPCS: 36415; 80053; 80061; 81003; 82043; 82306; 82570; 82607; 82746; 83036; 84439; 84443; 85025; 86341

== ENCOUNTER 2024-05-06 10:35 | Outpatient (AMB) | payer OTHER, SELFPAY ==
--- NOTE | 2024-05-06 10:40 | A.OFFVIS_ITS ---
Vital Signs 05/06/24 10:45 Height 5 ft 9 in Weight 178 lb 9.191 oz BMI 26.4 BP 116/68 Blood Pressure Location Rt brachial Position Sitting Pulse 59 Pulse Source Pulse Oximeter Intake Visit Reasons: T2DM/CONFIRMED Intake Note: Patient presents today to re-establish treatment for Type 2 Diabetes Mellitus: Last Diabetic Eye exam: Within the year Last Podiatry Visit: Patient was seen by Dr. Campos, needs a new referral to Dr. Serrano. Most Recent HgA1C: 5.2% 03/02/2024 Random Glucose: 88 mg/dL, Today Machines Technician Required: No Accompanied by: Self / Same As Patient Allergies atorvastatin Adverse Reaction (Intermediate, Verified 05/06/24 10:41) elevated LFTs HPI Comments Details: Patient is a 54 yo male with diabetes with recent testing consistent with type 1 diabetes Past medical history: HTN, Vit D deficiency, bipolar disorder and schizophrenia, Chronic kidney disease stage 4, PCKD Diagnosed at age 22 Micro and macrovascular complications: + nephropathy, + neuropathy, Diabetes medications: Lantus 8 units, Farxiga 10 mg QD Blood glucose monitoring : Dexcom. A1C 5.3% 04/2024 Symptoms reported: Numbness, tinglinig bilateral feet Hypoglycemia: Denies, Hyperglycemia: denies polyuria, denies nocturia, Exercise: walking 90 minutes daily Eye exam: reports UTD- reports no dm retinopathy, cararct ROS CONSTITUTIONAL: Denies weight loss, fever and chills. HEENT: Denies changes in vision and hearing. RESPIRATORY: Denies SOB and cough. CV: Denies palpitations and CP GI: Denies abdominal pain, nausea, vomiting and diarrhea. : Denies dysuria and urinary frequency. MSK: Denies new myalgia and joint pain. SKIN: Denies rash and pruritus. NEUROLOGICAL: Denies headache PSYCHIATRIC: Denies recent changes in mood. PHYSICAL EXAM: GENERAL: Alert and oriented x 3. NAD EYES: EOMI. Anicteric. HENT: Moist mucous membranes. No scleral icterus. No cervical lymphadenopathy. LUNGS: Clear to auscultation bilaterally. CARDIOVASCULAR: Regular rate and rhythm. No murmur. No JVD. ABDOMEN: Soft, non-tender +bs EXTREMITIES: No edema. Non-tender. SKIN: No rashes or lesions. Warm. NEUROLOGIC: No focal neurological deficits. PSYCHIATRIC: Cooperative. 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 Cognitive needs: No Hearing needs: No Vision needs: Yes (glasses) Physical Exam Vital Signs: Last Vital Signs Pulse 59 05/06/24 10:45 BP 116/68 05/06/24 10:45 BMI result Body Mass Index 26.4 Results Reviewed Results Reviewed: Laboratory Last Values Glucose (Clinic) 88 mg/dL (60-115) 05/06/24 10:52 Assessment & Plan Assessment & Plan (1) Type 2 diabetes mellitus with diabetic chronic kidney disease: Code(s): E11.22 - Type 2 diabetes mellitus with diabetic chronic kidney disease Category: Medical Qualifiers: Diabetes mellitus longterm insulin use: with longterm use Chronic kidney disease stage: stage 3 (moderate) Chronic kidney disease stage 3 subtype: unspecified whether 3a or 3b Qualified Code(s): E11.22 - Type 2 diabetes mellitus with diabetic chronic kidney disease; N18.30 - Chronic kidney disease, stage 3 unspecified; Z79.4 - termination clerk (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 Plan: 56 y/o with type 1 diabetes, excellent control Continue current lantus dose. No hypoglycemia. 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
[2024-05-06 10:45] VITALS: BP 116/68; PULSE 59; BMI 26.4
[2024-05-06 10:56] LABS: Glucose, Whole Blood 88 mg/dL (60-115)
== END 2024-05-06 11:21 | disposition home or self-care (01) ==
PROVIDERS: PCP Internal Medicine; Visit Provider Internal Medicine
DX: E11.22 Type 2 diabetes mellitus with diabetic chronic kidney disease (principal); N18.30 Chronic kidney disease, stage 3 unspecified; Z79.4 Long term (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

== ENCOUNTER → 2024-05-06 10:35 | Outpatient (BNVA) | payer OTHER, SELFPAY | PROVIDERS: PCP Internal Medicine; Visit Provider Internal Medicine | DX: E10.22 Type 1 diabetes mellitus with diabetic chronic kidney disease (principal); N18.4 Chronic kidney disease, stage 4 (severe); Z79.4 Long term (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 | CPT/HCPCS: 82947; 99212 ==

== ENCOUNTER 2024-05-13 11:30 | Emergency (ER) | payer OTHER, SELFPAY ==
--- NOTE | ~2024-05-13 | XR_ITS ---
EXAMINATION: XR FOOT, LEFT CLINICAL INFORMATION: Fifth metatarsophalangeal joint pain. COMPARISON: Left foot radiographs dated 01/05/2013. TECHNIQUE: AP, lateral, and oblique views of the left foot. FINDINGS: Mild soft tissue swelling adjacent to the fifth metatarsophalangeal joint. No fracture or dislocation. No joint space narrowing or marginal osteophytes. No osseous erosion. Small plantar and dorsal calcaneal spurs. XR/XR foot LT min 3V IMPRESSION: 1. Mild soft tissue swelling adjacent to the fifth metatarsophalangeal joint. No acute osseous abnormality. 2. Small plantar and dorsal calcaneal spurs. Electronically signed by: Wilfredo Mckeon MD 05/13/2024 12:54 PM EDT
[2024-05-13 11:34] VITALS: BP 142/78; PULSE 76; O2SAT 97
[2024-05-13 11:42] VITALS: BP 120/79; PULSE 77; RESP 20; TEMP 36.9; O2SAT 96; BMI 26.3
--- NOTE | 2024-05-13 11:42 | ED_ITS ---
HPI - General Adult General Chief complaint: Extremity Problem Stated complaint: L FOOT CORN PAIN,NUMB/TINGLY PER EMS Time Seen by Provider: 05/13/24 12:25 Source: patient, EMS, RN notes reviewed and old records reviewed Mode of arrival: EMS Limitations: no limitations History of Present Illness ED Provider: DAVID VIEIRA PA-C HPI narrative: 54 year old male with pmhx significant for T1DM, polycystic kidney disease, hyperparathyroidism, CKD stage 4, HTN, memory impairment, schizoaffective disorder, asthma, epilepsy presents to the ED today via EMS for evaluation of left foot pain x years. Admits he has a callus under his left great toe right where is pain/ discomfort is however does not beleive this is related. reports pain with bearing weight on his left foot. denies injury/ trauma to foot. Patient was evaluated by his PCP for this, told it was related to his neuropathy. He was prescribed gabapentin which he has been taking at home without improvement. Reports trialing an orange pill yesterday which he believes to be flexeril without relief. Denies taking any OTC pain meds for this. Denies fever, chills, open wounds, new numbness/tingling/weakness to LLE. Related Data Home Medications ?Medication ?Instructions ?Recorded ?Confirmed lamotrigine 200 mg tablet 200 mg PO BID 05/08/20 03/02/24 lorazepam 0.5 mg tablet 0.5 mg PO TID PRN Anxiety 05/08/20 03/02/24 trazodone 50 mg tablet 50 mg PO BEDTIME PRN Insomnia 05/08/20 03/02/24 pen needle, diabetic 32 gauge x #50 ea 07/25/20 03/02/24 olanzapine 5 mg tablet 5 mg PO BEDTIME 08/16/21 03/02/24 aripiprazole 5 mg tablet 5 mg PO DAILY 12/03/21 03/02/24 dapagliflozin propanediol 10 mg 10 mg PO DAILY 07/30/22 03/02/24 tablet (Farxiga) fluoxetine 40 mg capsule 40 mg PO DAILY 12/18/23 03/02/24 melatonin 5 mg tablet 5 mg PO BEDTIME PRN 12/18/23 03/02/24 zonisamide 100 mg capsule 100 mg PO QID 12/18/23 03/02/24 sodium zirconium cyclosilicate 10 g PO 04/15/24 gram oral powder packet (Lokelnd) sodium bicarbonate 650 mg tablet mg PO BID 05/06/24 Previous Rx's ?Medication ?Instructions ?Recorded sildenafil 50 mg tablet 50 mg PO DAILY PRN sexual activity 02/08/22 #5 tabs omeprazole 20 mg capsule,delayed 20 mg PO DAILY #90 caps 05/22/23 release alcohol swabs 1 pad topical QID #200 ea 07/16/23 blood sugar diagnostic (OneTouch #100 ea 07/16/23 Ultra Test strips) blood-glucose meter (OneTouch #1 ea 07/16/23 Ultra2 Meter kit) omega 1-wcw-vio-fish oil 1,200 mg 1 cap PO DAILY #90 caps 07/26/23 (144 mg-216 mg) capsule (Fish Oil) pen needle, diabetic 32 gauge x 1 ea subcut DAILY #100 ea 10/25/23 (BD Ultra-Fine Leeanne Pen Needle) fluticasone propionate 220 1 puff PO BID #36 grams 10/27/23 mcg/actuation HFA aerosol inhaler bisacodyl 5 mg tablet,delayed 10 mg (2 x 5 mg) PO BEDTIME 30 11/27/23 release (Dulcolax (bisacodyl)) days #60 tabs acetaminophen 500 mg tablet 500 mg PO Q6H PRN fever or pain 12/06/23 (Tylenol Extra Strength) #30 tabs calcium polycarbophil 625 mg 625 mg PO BID PRN for constipation 12/24/23 tablet (Fiber (calcium #60 tabs polycarbophil)) albuterol sulfate 90 mcg/actuation 2 puff inhalation Q6H PRN 01/14/24 aerosol inhaler (ProAir HFA) shortness of breath or wheezing 30 days #8.5 grams ergocalciferol (vitamin D2) 1,250 1,250 mcg PO QWEEK #12 caps 01/26/24 mcg (50,000 unit) capsule rosuvastatin 5 mg tablet 5 mg PO DAILY 30 days #30 tabs 03/02/24 nirmatrelvir 150 mg-ritonavir 100 See Rx Instructions PO .COMPLEX 03/18/24 mg tablets in a dose pack #20 ea (Paxlovid) methocarbamol 750 mg tablet 750 mg PO Q8H low back pain 30 03/29/24 days #90 tabs levothyroxine 125 mcg tablet 125 mcg PO DAILY #90 tabs 04/05/24 insulin glargine 100 unit/mL (3 8 unit (0.08 mL) subcut QPM 90 04/11/24 mL) subcutaneous pen (Lantus days #12 mL Solostar U-100 Insulin) lisinopril 2.5 mg tablet 2.5 mg PO BID #180 tabs 05/03/24 blood-glucose sensor (Dexcom G7 #3 ea 05/05/24 Sensor device) gabapentin 300 mg capsule 300 mg PO BID 90 days #180 caps 05/06/24 Dexcom G7 Auto Bench Mechanic (blood-glucose #1 ea 05/10/24 meter,continuous) Allergies Allergy/AdvReac Type Severity Reaction Status Date / Time atorvastatin AdvReac Intermediate elevated Verified 05/13/24 11:44 LFTs Review of Systems 2 Review of Systems: Constitutional: No fever, chills, fatigue, night sweats, weight changes ENT/Mouth: No ear pain, hearing loss, nasal congestion, sinus pain, rhinorrhea, sore throat Eyes: No eye pain, swelling, redness, vision changes, discharge Cardio: No chest pain, palpitations, SHARMA, orthopnea, peripheral edema Pulm: No SOB, cough, sputum, wheezing, dyspnea, hemoptysis GI: No nausea, vomiting, hematemesis, abdominal pain, diarrhea, constipation, hematochezia, melena : No irregular bleeding, dysuria, frequency, urgency, hesitancy, hematuria, flank pain, urinary flow changes, urinary incontinence or retention MSK: No back pain, neck pain, joint pain, myalgias, +L foot pain Skin: No lesions, rashes Neuro: No weakness, numbness, paresthesias, LOC, dizziness, headache Psych: No anxiety/panic, depression, SI/HI, AH/VH All other systems reviewed and are negative. [facility] Past Medical History Attestation statement: The following information was validated with the patient. Source: old records reviewed and nursing notes reviewed Medical History Polycystic kidney disease Lumbar spondylosis Degenerative joint disease of thoracic spine Overweight (BMI 25.0-29.9) Chronic kidney disease, stage 4 (severe) Prolonged QT interval Hyperkalemia Memory impairment Vitamin D deficiency Hypothyroidism Seizures Anxiety Fatty liver IBS (irritable colon syndrome) GERD (gastroesophageal reflux disease) Obesity (BMI 30-39.9) Schizoaffective disorder Asthma Epilepsy Essential hypertension Pure hypercholesterolemia long-term (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 Type 2 diabetes mellitus with diabetic chronic kidney disease Surgical History History of surgery on lower extremity History of dental surgery H/O colonoscopy Family History Family History Father No problems noted. 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 Skin: Warm, dry, intact. No rashes or lesions. Head: Normocephalic, atraumatic. Cardiac: Chest wall symmetric. RRR. Lungs: Normal respiratory effort without accessory muscle use. CTA bilaterally. Ext: + left foot w/o obvious deformity or overlying skin changes. Noted callus to plantar aspect of foot proximal to left great toe. Tender to palpation. No fluctuance or warmth. No open wounds. Able to move all toes with full ROM intact to left ankle. 2+ PT/DP pulse intact. No calf tenderness. Ambulating with slight limping gait. Neuro: AOx3. Normal speech. Psych: Appropriate mood and affect. Responds appropriately to questions. Course Course Course Narrative: This is a rapid medical exam performed by Cornelius Davila NP: Additional HPI, ROS, PE not included below will be deferred to primary provider. Patient is a 54-year-old male with history of T1DM, polycystic kidney disease, hyperparathyroidism, CKD stage 4, HTN, memory impairment, schizoaffective disorder, asthma, epilepsy presenting via ambulance with complaint of pain to left foot for years. Was told by PCP pain was related to neuropathy, was prescribed a new medication but states it isn't helping. Plan: labs, xray Medications Administered Discontinued Medications Generic Name Dose Route Start Last Admin Trade Name Elverq PRN Reason Stop Dose Admin Acetaminophen 975 mg 05/13/24 13:58 05/13/24 14:09 Acetaminophen 325 Mg Tablet PO 05/13/24 13:59 975 mg ONCE ONE Administration Medical Decision Making Medical Decision Making [facility] Narrative: 54 year old male with pmhx significant for T1DM, polycystic kidney disease, hyperparathyroidism, CKD stage 4, HTN, memory impairment, schizoaffective disorder, asthma, epilepsy presents to the ED today via EMS for evaluation of left foot pain x years. Vital signs stable. afebrile. he is nontoxic appearing and in NAD. on exam of left foot, there is not obvious deformity or overlying skin changes. Noted callus to plantar aspect of foot proximal to left great toe. Tender to palpation. No fluctuance or warmth. No open wounds. Able to move all toes with full ROM intact to left ankle. 2+ PT/DP pulse intact. No calf tenderness. Ambulating with slight limping gait. Differential diagnosis includes callus, contusion, msk sprain, strain, arthritis. presentation not consistent with gout, pseudogout, cellulitis, osteomyelitis, fracture, dislocation. Plan for imaging, pain control, and re-evaluation. Differential Diagnosis Differential Diagnoses: The differential diagnosis associated with the presentation includes as above. Admission/Observation not indicated. Lab Data [facility] Lab Attestation statement: I reviewed the patient's lab results. as above. 05/13/24 12:28 05/13/24 12:28 Labs: Lab Results 05/13/24 Range/Units 12:28 WBC 6.2 (4.8-10.8) X10*3/uL RBC 3.73 L (4.60-5.80) X10*6/uL Hgb 11.4 L (14.0-18.0) g/dl Hct 34.4 L (42.0-52.0) % MCV 92.2 (80.0-98.0) fL MCH 30.6 (27.0-33.0) pg MCHC 33.1 (31.0-36.0) g/dl RDW 13.3 (11.0-16.0) % Plt Count 185 (160-400) X10*3/uL MPV 8.4 L (9.4-12.4) fL Immature Gran % (Auto) 0.2 (0.0-0.4) % Neut % (Auto) 58.9 (45-73) % Lymph % (Auto) 29.5 (20-40) % Anson % (Auto) 7.4 (2-11) % Eos % (Auto) 3.4 (0-4) % Baso % (Auto) 0.6 (0-2) % Lymph # (Auto) 1.8 (1.2-4.9) X10*3/uL Anson # (Auto) 0.5 (0.1-1.2) X10*3/uL Eos # (Auto) 0.2 (0.0-0.4) X10*3/uL Baso # (Auto) 0.0 (0.0-0.2) X10*3/uL Abs Immat Gran (auto) 0.01 (0.00-0.03) X10*3/uL Absolute Neuts (auto) 3.7 (2.0-8.3) x10*3/uL Absolute Nucleated RBC 0.000 (0.0-0.012) X10*3/uL Nucleated RBC % (auto) 0.0 (0.0-0.2) /100WBC ESR 5 (0-15) MM/HR Sodium 140 (135-145) mmol/L Potassium 5.2 H (3.3-5.1) mmol/L Chloride 109 H (96-108) mmol/L Carbon Dioxide 25 (22-29) mmol/L Anion Gap 11 L (12-20) BUN 66 H (9-16) mg/dL Creatinine 2.84 H (0.5-1.4) mg/dL Estim Creat Clear Calc 30.0 Estimated GFR 23 Random Glucose 81 (60-115) mg/dL Calcium 8.7 D (8.4-10.2) mg/dL Total Bilirubin 0.2 (0.0-1.0) mg/dL AST 25 (5-37) U/L ALT 20 (0-40) U/L Alkaline Phosphatase 141 H (39-117) U/L C-Reactive Protein 0.18 (< or = 0.50) mg/dL Total Protein 6.8 (6.5-8.0) g/dL Albumin 4.2 (3.5-5.0) g/dL Independent Interpretation I performed an independent interpretation of an: Plain X-Ray Interpretation: xr left foot without fracture, agree with radiologist's interpretation. Radiology Impression Discussion of test interpretation with radiology: I have reviewed the radiologist's reading. Radiologist Impression: EXAMINATION: XR FOOT, LEFT CLINICAL INFORMATION: Fifth metatarsophalangeal joint pain. COMPARISON: Left foot radiographs dated 01/05/2013. TECHNIQUE: AP, lateral, and oblique views of the left foot. FINDINGS: Mild soft tissue swelling adjacent to the fifth metatarsophalangeal joint. No fracture or dislocation. No joint space narrowing or marginal osteophytes. No osseous erosion. Small plantar and dorsal calcaneal spurs. XR/XR foot LT min 3V IMPRESSION: 1. Mild soft tissue swelling adjacent to the fifth metatarsophalangeal joint. No acute osseous abnormality. 2. Small plantar and dorsal calcaneal spurs. Electronically signed by: Wilfredo Mckeon MD 05/13/2024 12:54 PM EDT RP Prescription Management I considered prescription management with: Pain Medication Social Determinants Patient?s care significantly limited by Social Determinants of Health including: Other Social Determinant of Health Critical Care Time Critical Care Time Critical Care Time: No Discharge Plan Discharge Clinical Impression: Callus of foot Patient Disposition: Home, Self-Care Additional Instructions: Your work up today is reassuring. I recommend taking Tylenol 650mg every 6 hours as needed for pain You were provided with apost-op shoe for comfort. Please follow up with PCP. You have also been provided with a referral to a social services manager. Call them to establish care, they will not call you. Return with new or worsening symptoms. In the case of an emergency call 911. Prescriptions: No Action sildenafil 50 mg tablet 50 mg PO DAILY PRN (Reason: sexual activity) Qty: 5 0RF Rx Instructions: administer 30 minutes to 4 hours before activity (DME) blood-glucose meter [OneTouch Ultra2 Meter] Kit See Rx Instructions .ROUTE .MEDSUPPLY Qty: 1 0RF Rx Instructions: As directed (DME) OneTouch Ultra Test Strip See Rx Instructions .ROUTE .MEDSUPPLY Qty: 100 5RF Rx Instructions: As directed once a day alcohol swabs Pads, Medicated 1 pad topical QID Qty: 200 12RF omega 6-qzq-dzb-fish oil [Fish Oil] 1,200 (144-216) mg capsule 1 cap PO DAILY Qty: 90 3RF pen needle, diabetic [BD Ultra-Fine Leeanne Pen Needle] 32 gauge x 5/32 needle 1 ea subcut DAILY Qty: 100 2RF Flovent HFA 220 mcg/actuation HFA aerosol inhaler 1 puff PO BID Qty: 36 3RF bisacodyl [Dulcolax (bisacodyl)] 5 mg tablet,delayed release (DR/EC) 10 mg PO BEDTIME 30 Days Qty: 60 1RF Fiber (calcium polycarbophil) 625 mg tablet 625 mg PO BID PRN (Reason: for constipation) Qty: 60 6RF albuterol sulfate [ProAir HFA] 90 mcg/actuation HFA aerosol inhaler 2 puff inhalation Q6H PRN (Reason: shortness of breath or wheezing) 30 Days Qty: 8.5 3RF ergocalciferol (vitamin D2) 1,250 mcg (50,000 unit) capsule 1,250 mcg PO QWEEK Qty: 12 2RF methocarbamol 750 mg tablet 750 mg PO Q8H 30 Days Qty: 90 1RF levothyroxine 125 mcg tablet 125 mcg PO DAILY Qty: 90 1RF insulin glargine [Lantus Solostar U-100 Insulin] 100 unit/mL (3 mL) insulin pen 8 unit subcut QPM 90 Days Qty: 12 3RF lisinopril 2.5 mg tablet 2.5 mg PO BID Qty: 180 0RF (DME) Dexcom G7 Sensor Device See Rx Instructions .Route Qty: 3 5RF Rx Instructions: As directed change every 10 days (DME) Dexcom G7 Auto Bench Mechanic Misc See Rx Instructions .Route Qty: 1 3RF Rx Instructions: As directed acetaminophen [Tylenol Extra Strength] 500 mg tablet 500 mg PO Q6H PRN (Reason: fever or pain) Qty: 30 0RF Paxlovid 150-100 mg tablets,dose pack See Rx Instructions .ROUTE .COMPLEX Qty: 20 0RF Rx Instructions: take ONE 150 mg tablet of nirmatrelvir with ONE 100 mg tablet of ritonavir twice daily for 5 days lorazepam 0.5 mg tablet 0.5 mg PO TID PRN (Reason: Anxiety) lamotrigine 200 mg tablet 200 mg PO BID trazodone 50 mg tablet 50 mg PO BEDTIME PRN (Reason: Insomnia) zonisamide 100 mg capsule 100 mg PO QID Farxiga 10 mg tablet 10 mg PO DAILY aripiprazole 5 mg tablet 5 mg PO DAILY rosuvastatin 5 mg tablet 5 mg PO DAILY 30 Days Qty: 30 3RF (DME) pen needle, diabetic 32 gauge x needle See Rx Instructions subcut .MEDSUPPLY Qty: 50 Rx Instructions: As directed olanzapine 5 mg tablet 5 mg PO BEDTIME melatonin 5 mg tablet 5 mg PO BEDTIME PRN omeprazole 20 mg capsule,delayed release(DR/EC) 20 mg PO DAILY Qty: 90 2RF fluoxetine 40 mg capsule 40 mg PO DAILY Lokelma 10 gram powder in packet PO sodium bicarbonate 650 mg tablet PO BID gabapentin 300 mg capsule 300 mg PO BID 90 Days Qty: 180 3RF Referrals: Zeb Ca MD [Primary Care Provider] - Jean Pierre Mercedes MD [Physician] - Interventions: ED Discharge Assessment Last Done: 05/13/24 15:15 Discharge Date/Time: 05/13/24 15:19 Print Language: Venezuelan
[2024-05-13 12:35] LABS: Basophils Percent Auto 0.6 % (0-2); Eosinophils Absolute Auto 0.2 X10*3/uL (0.0-0.4); Eosinophils Percent Auto 3.4 % (0-4); Hematocrit 34.4 % (42.0-52.0); Hemoglobin 11.4 g/dl (14.0-18.0); Imm Gran Abs Auto 0.01 X10*3/uL (0.00-0.03); Imm Gran Pct Auto 0.2 % (0.0-0.4); Lymphocytes Absolute Auto 1.8 X10*3/uL (1.2-4.9); Lymphocytes Percent Auto 29.5 % (20-40); MANUAL DIFF FLAG NO; Mean Corpuscular HGB Conc 33.1 g/dl (31.0-36.0); Mean Corpuscular Hemoglobin 30.6 pg (27.0-33.0); Mean Corpuscular Volume 92.2 fL (80.0-98.0); Mean Platelet Volume 8.4 fL (9.4-12.4); Monocytes Absolute Auto 0.5 X10*3/uL (0.1-1.2); Monocytes Percent Auto 7.4 % (2-11); Neutrophils Absolute Auto 3.7 x10*3/uL (2.0-8.3); Neutrophils Percent Auto 58.9 % (45-73); Platelet Count 185 X10*3/uL (160-400); Red Blood Count 3.73 X10*6/uL (4.60-5.80); Red Cell Distribution Width 13.3 % (11.0-16.0); White Blood Count 6.2 X10*3/uL (4.8-10.8)
[2024-05-13 12:51] LABS: Alanine Aminotransferase 20 U/L (0-40); Albumin Level 4.2 g/dL (3.5-5.0); Alkaline Phosphatase 141 U/L (39-117); Anion Gap 11 (12-20); Aspartate Amino Transferase 25 U/L (5-37); Bilirubin Total 0.2 mg/dL (0.0-1.0); Blood Urea Nitrogen 66 mg/dL (9-16); C Reactive Protein 0.18 mg/dL (< or = 0.50); Calcium 8.7 mg/dL (8.4-10.2); Carbon Dioxide 25 mmol/L (22-29); Chloride 109 mmol/L (96-108); Estimated Glomerular Filt Rate 23; Glucose Random 81 mg/dL (60-115); Potassium 5.2 mmol/L (3.3-5.1); Sodium 140 mmol/L (135-145); Total Protein 6.8 g/dL (6.5-8.0)
[2024-05-13 13:13] LABS: Erythrocyte Sedimentation Rate 5 MM/HR (0-15)
[2024-05-13 13:44] VITALS: BP 118/65; PULSE 53; RESP 16; O2SAT 96
[2024-05-13] MEDS: Acetaminophen 325 MG TABLET 975 MG PO (14:09)
[2024-05-13 15:15] VITALS: BP 118/65; PULSE 53; RESP 18; TEMP 36.9; O2SAT 98
== END 2024-05-13 15:19 | disposition home or self-care (01) ==
PROVIDERS: Registered Nurse Emergency; Emergency Provider Emergency Medicine; PCP Internal Medicine
DX: L84 Corns and callosities (principal); M79.672 Pain in left foot; Z79.899 Other long term (current) drug therapy
CPT/HCPCS: 36415; 73630; 80053; 85025; 85652; 86140; 99283; 99284

== ENCOUNTER 2024-06-16 07:40 | Outpatient (REF) | payer OTHER, SELFPAY ==
[2024-06-16 08:49] LABS: Anion Gap 14 (12-20); Blood Urea Nitrogen 65 mg/dL (9-16); Calcium 9.4 mg/dL (8.4-10.2); Carbon Dioxide 23 mmol/L (22-29); Chloride 110 mmol/L (96-108); Estimated Glomerular Filt Rate 21; Potassium 5.5 mmol/L (3.3-5.1); Sodium 141 mmol/L (135-145)
== END 2024-06-16 07:41 | disposition home or self-care (01) ==
LOC: HO.LAB 07:40
PROVIDERS: PCP Internal Medicine; Visit Provider Internal Medicine Nephrology
DX: N18.4 Chronic kidney disease, stage 4 (severe) (principal); E11.29 Type 2 diabetes mellitus with other diabetic kidney complication; E87.5 Hyperkalemia; N25.0 Renal osteodystrophy
CPT/HCPCS: 36415; 80051; 82310; 82565; 84520

== ENCOUNTER 2024-07-08 07:31 | Outpatient (RCR) | payer OTHER, SELFPAY ==
[2024-06-28 10:03] VITALS: BP 117/54; PULSE 60
--- NOTE | 2024-06-28 10:43 | MHC.PT.EP ---
[facility] [place] [facility] [place] [facility] [place] [facility] [address] Eldon Escobar [address] [phone] F: [phone] F: [phone] F: [phone] F: [phone] Physical Therapy Plan of Care Date of Evaluation: 06/28/24 Date of Surgery: NA Diagnosis: Low back pain Assessment: Shaheen is a 54 year old male who is referred to PT for low back pain . He reports of having low back pain for several years and had PT for the same about 5 months back. He felt better with PT however his pain returned as he stopped exercising. He denies any trauma or injury. On PT examination he reports of having central low back pain with forward bending and sudden movements, TTP over thoraco-lumbar region and L4-5 spinous process, 5/10 pain in back with bending forward, all lumbar ROM WNL however painful, decreased B LE and core strength, altered posture and gait. He lives alone and is independent with all ADLS but has pain with them. He is unemployed. He would benefit from skilled PT to address the aforementioned impairments and improve tolerance to functional activities. Frequency and Duration: The patient will be seen 2/week for 5 weeks Short Term Goals: 1. Pt will demonstrate initiation of HEP in 2 weeks. 2. Pt will be able to move trunk through all planes of motion without pain which will enable him to dress his lower body without pain in 3 weeks. Director Of Solutions Architecture Goals: 1. Pt will demonstrate an increase in muscle strength by 1 grade which will enable him to perform all ADLS without pain in 5 weeks. 2. Pt will be independent with all HEP for symptom management and maintenance following d/c in 5 weeks. Treatment Plan: Modalities to reduce pain, spasms and effusion. Manual therapy to restore motion and function. Therapeutic exercise to improve strength and flexibility. Neuromuscular re-education for posture and balance. Therapeutic activities to return to functional activities of daily living. Electronically signed by: Celine Vazquez PT DPT Please sign and return to therapist. Thank you for your referral.
--- NOTE | 2024-07-29 11:25 | MHC.PT.DC ---
[facility] [place] Office [place] Office [place] Office [address] Eldon Escobar [address] [phone] F: [phone] F: [phone] F: [phone] F: [phone] Physical Therapy Discharge Report Diagnosis: Low back pain Date of Surgery: NA Date of Evaluation: 06/28/24 Date of Discharge: 07/29/24 Treatments to Date: 2 Cancellations to Date: 4 No Shows to Date: 2 Discharge Status: Visit Non-compliance Discharge Summary: Shaheen gabriel showed 2 appointments and canceled 4. He has not been in PT for about 3 weeks. He is therefore being d/c from PT for non compliance. Electronically signed by: Celine Vazquez PT DPT Please sign and return to therapist. Thank you for your referral.
== END 2024-07-29 11:25 | disposition home or self-care (01) ==
LOC: HO.PT 07:31
PROVIDERS: PCP Internal Medicine; Visit Provider Internal Medicine
DX: M54.50 Low back pain, unspecified (principal)
CPT/HCPCS: 97110; 97112; 97161

== ENCOUNTER 2024-07-18 11:14 | Observation (INO) | payer OTHER, SELFPAY ==
[2024-07-18 11:24] VITALS: BP 136/89; PULSE 60; RESP 18; TEMP 36.7; O2SAT 100; BMI 27.9
[2024-07-18] MEDS: diphenhydrAMINE HCL 25 MG CAPSULE PO (11:32)
--- NOTE | 2024-07-18 11:49 | ECG_ITS ---
Test Reason : QTC CHECK Blood Pressure : / mmHG Vent. Rate : 052 BPM Atrial Rate : 052 BPM P-R Int : 180 ms QRS Dur : 100 ms QT Int : 464 ms P-R-T Axes : 030 -25 052 degrees QTc Int : 431 ms Sinus bradycardia Otherwise normal ECG When compared with ECG of 06-DEC-2023 00:16, No significant change was found Referred By: Laurita Franco Electronically Signed By:MARY BEVERLY
[2024-07-18 11:51] LABS: MANUAL DIFF FLAG NO
[2024-07-18 11:53] LABS: Basophils Percent Auto 0.5 % (0-2); Eosinophils Absolute Auto 0.2 X10*3/uL (0.0-0.4); Eosinophils Percent Auto 2.3 % (0-4); Hematocrit 34.4 % (42.0-52.0); Hemoglobin 11.1 g/dl (14.0-18.0); Imm Gran Abs Auto 0.03 X10*3/uL (0.00-0.03); Imm Gran Pct Auto 0.4 % (0.0-0.4); Lymphocytes Absolute Auto 2.2 X10*3/uL (1.2-4.9); Lymphocytes Percent Auto 28.4 % (20-40); Mean Corpuscular HGB Conc 32.3 g/dl (31.0-36.0); Mean Corpuscular Hemoglobin 29.9 pg (27.0-33.0); Mean Corpuscular Volume 92.7 fL (80.0-98.0); Mean Platelet Volume 8.4 fL (9.4-12.4); Monocytes Absolute Auto 0.6 X10*3/uL (0.1-1.2); Monocytes Percent Auto 7.2 % (2-11); Neutrophils Absolute Auto 4.8 x10*3/uL (2.0-8.3); Neutrophils Percent Auto 61.2 % (45-73); Platelet Count 183 X10*3/uL (160-400); Red Blood Count 3.71 X10*6/uL (4.60-5.80); Red Cell Distribution Width 13.2 % (11.0-16.0); White Blood Count 7.9 X10*3/uL (4.8-10.8)
[2024-07-18] MEDS: LORazepam 2 MG/ML VIAL 1 MG IVPUSH (12:01)
--- NOTE | 2024-07-18 12:01 | ED.GENADULT ---
HPI - General Adult General Chief complaint: General Medical Stated complaint: TWITCHING X2W,?NEW MED CHANGE PER EMS Time Seen by Provider: 07/18/24 11:20 Source: patient and EMS Mode of arrival: ambulatory Limitations: no limitations History of Present Illness ED Provider: SHERRI DESHPANDE narrative: 54 yo male with seizures, polycystic kidney ds, DM1, hypthyroidism, prolonged Qt, anxiety and depression, schizoaffective disorder, asthma, CKD who notes he has had no new med changes even though EMS was told he had med change with zonisamide but he denies this. He notes 2 weeks of twitching face, arms, legs. He came today as he felt like he was going to fall and when he talks his face twitches. He notes his head is tingling. He has no n/v/d no other complaints. On arrival to room PA unclear if it was dystonic and ordered benadryl. He states he has never had twitching like before meds that could be involved include fluoxetine, lamictal, abilify, trazodone, zonisamide complaint: twitching Onset (ago): week(s) (2) Location: mouth, left, right, upper extremity and lower extremity Radiation: non-radiation Severity: moderate Relieving factors: none Exacerbating factors: movement Associated symptoms: denies other symptoms Treatments prior to arrival: none Related Data Home Medications ?Medication ?Instructions ?Recorded ?Confirmed lamotrigine 200 mg tablet 200 mg PO BID 05/08/20 03/02/24 lorazepam 0.5 mg tablet 0.5 mg PO TID PRN Anxiety 05/08/20 03/02/24 trazodone 50 mg tablet 50 mg PO BEDTIME PRN Insomnia 05/08/20 03/02/24 pen needle, diabetic 32 gauge x #50 ea 07/25/20 03/02/24 olanzapine 5 mg tablet 5 mg PO BEDTIME 08/16/21 03/02/24 aripiprazole 5 mg tablet 5 mg PO DAILY 12/03/21 03/02/24 dapagliflozin propanediol 10 mg 10 mg PO DAILY 07/30/22 03/02/24 tablet (Farxiga) fluoxetine 40 mg capsule 40 mg PO DAILY 12/18/23 03/02/24 melatonin 5 mg tablet 5 mg PO BEDTIME PRN 12/18/23 03/02/24 zonisamide 100 mg capsule 100 mg PO QID 12/18/23 03/02/24 sodium zirconium cyclosilicate 10 g PO 04/15/24 gram oral powder packet (Lokelma) sodium bicarbonate 650 mg tablet mg PO BID 05/06/24 Previous Rx's ?Medication ?Instructions ?Recorded sildenafil 50 mg tablet 50 mg PO DAILY PRN sexual activity 02/08/22 #5 tabs omeprazole 20 mg capsule,delayed 20 mg PO DAILY #90 caps 05/22/23 release alcohol swabs 1 pad topical QID #200 ea 07/16/23 blood sugar diagnostic (OneTouch #100 ea 07/16/23 Ultra Test strips) blood-glucose meter (OneTouch #1 ea 07/16/23 Ultra2 Meter kit) omega 1-qui-atr-fish oil 1,200 mg 1 cap PO DAILY #90 caps 07/26/23 (144 mg-216 mg) capsule (Fish Oil) pen needle, diabetic 32 gauge x 1 ea subcut DAILY #100 ea 10/25/23 (BD Ultra-Fine Leeanne Pen Needle) fluticasone propionate 220 1 puff PO BID #36 grams 10/27/23 mcg/actuation HFA aerosol inhaler bisacodyl 5 mg tablet,delayed 10 mg (2 x 5 mg) PO BEDTIME 30 11/27/23 release (Dulcolax (bisacodyl)) days #60 tabs acetaminophen 500 mg tablet 500 mg PO Q6H PRN fever or pain 12/06/23 (Tylenol Extra Strength) #30 tabs calcium polycarbophil 625 mg 625 mg PO BID PRN for constipation 12/24/23 tablet (Fiber (calcium #60 tabs polycarbophil)) albuterol sulfate 90 mcg/actuation 2 puff inhalation Q6H PRN 01/14/24 aerosol inhaler (ProAir HFA) shortness of breath or wheezing 30 days #8.5 grams ergocalciferol (vitamin D2) 1,250 1,250 mcg PO QWEEK #12 caps 01/26/24 mcg (50,000 unit) capsule nirmatrelvir 150 mg-ritonavir 100 See Rx Instructions PO .COMPLEX 03/18/24 mg tablets in a dose pack #20 ea (Paxlovid) methocarbamol 750 mg tablet 750 mg PO Q8H low back pain 30 03/29/24 days #90 tabs levothyroxine 125 mcg tablet 125 mcg PO DAILY #90 tabs 04/05/24 insulin glargine 100 unit/mL (3 8 unit (0.08 mL) subcut QPM 90 04/11/24 mL) subcutaneous pen (Lantus days #12 mL Solostar U-100 Insulin) lisinopril 2.5 mg tablet 2.5 mg PO BID #180 tabs 05/03/24 blood-glucose sensor (Dexcom G7 #3 ea 05/05/24 Sensor device) gabapentin 300 mg capsule 300 mg PO BID 90 days #180 caps 05/06/24 Dexcom G7 Intellectual Property Legal Assistant (blood-glucose #1 ea 05/10/24 meter,continuous) rosuvastatin 5 mg tablet 5 mg PO DAILY #90 tabs 05/28/24 tizanidine 4 mg tablet 4 mg PO Q8H PRN muscle spasms 30 06/23/24 days #90 tabs Allergies Allergy/AdvReac Type Severity Reaction Status Date / Time atorvastatin AdvReac Intermediate elevated Verified 07/18/24 11:26 LFTs Review of Systems Review of Systems: Constitutional : No Fever, No Chills, No Fatigue ENT/Mouth : No sore throat, No Rhinorrhea Eyes: No Eye Pain, No Swelling, No Redness Cardiovascular : No Chest Pain, No SOB, No Dyspnea on Exertion Respiratory : No Cough, No Sputum Gastrointestinal : No Nausea, No Vomiting, No Diarrhea, No abdominal Pain Genitourinary : No Dysuria, No Urinary Frequency, No Hematuria, Musculoskeletal : No joint pain, No Myalgias, No Joint Swelling Skin : No Skin Lesions, No rash Neuro : No Weakness, pos Numbness, No Dizziness, no Headache Psych : No Anxiety/Panic, No Depression All other systems reviewed and are negative [facility] Past Medical History Attestation statement: The following information was validated with the patient. 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 Oriented X3. No acute distress. Eyes: Pupils equal, round and reactive to light. no nystagmus ENT: Pharynx normal. Neck: Normal inspection. Neck supple. CVS: Normal heart rate and rhythm. Pulses normal. Respiratory: No respiratory distress. Breath sounds normal. Abdomen: Soft and non-tender. Skin: Skin warm and dry. Normal skin color. Normal skin turgor. Extremities: No lower extremity edema. Neuro: Oriented X 3. No motor deficit. No sensory deficit. hyperreflexia of DTRs arms, achilles, patella, 4 beat clonus both feet Medications Administered Discontinued Medications Generic Name Dose Route Start Last Admin Trade Name Freq PRN Reason Stop Dose Admin Diphenhydramine HCl 25 mg 07/18/24 11:16 07/18/24 11:32 Diphenhydramine Hcl 25 Mg Capsule PO 07/18/24 11:17 25 mg ONCE ONE Administration Lorazepam 1 mg 12/15/24 11:49 07/18/24 12:01 Lorazepam 2 Mg/Ml Vial IVPUSH 07/18/24 11:50 1 mg STAT STA Administration Medical Decision Making Medical Decision Making [facility] Narrative: 54 yo male with seizures, polycystic kidney ds, DM1, hypthyroidism, prolonged Qt, anxiety and depression, schizoaffective disorder, asthma, CKD here with twitching it is not dystonic on arrival and I cannot see the twitches at this time he has hyperreflexia and clonus no other signs such as nystagmus and his autonomics are stable. I am worried about serotonin syndrome. Will obtain labs, EKG, start on IV ativan Differential Diagnosis Differential Diagnoses: The differential diagnosis associated with the presentation includes med reaction, serotonin syndrome Admission/Observation Consideration of admission/observation: Escalation of care including admission/observation considered would admit for med washout and symptom observation Lab Data [facility] Lab Attestation statement: I reviewed the patient's lab results. 07/18/24 11:47 07/18/24 11:47 Labs: Lab Results 07/18/24 Range/Units 11:47 WBC 7.9 (4.8-10.8) X10*3/uL RBC 3.71 L (4.60-5.80) X10*6/uL Hgb 11.1 L (14.0-18.0) g/dl Hct 34.4 L (42.0-52.0) % MCV 92.7 (80.0-98.0) fL MCH 29.9 (27.0-33.0) pg MCHC 32.3 (31.0-36.0) g/dl RDW 13.2 (11.0-16.0) % Plt Count 183 (160-400) X10*3/uL MPV 8.4 L (9.4-12.4) fL Immature Gran % (Auto) 0.4 (0.0-0.4) % Neut % (Auto) 61.2 (45-73) % Lymph % (Auto) 28.4 (20-40) % Hyde % (Auto) 7.2 (2-11) % Eos % (Auto) 2.3 (0-4) % Baso % (Auto) 0.5 (0-2) % Lymph # (Auto) 2.2 (1.2-4.9) X10*3/uL Hyde # (Auto) 0.6 (0.1-1.2) X10*3/uL Eos # (Auto) 0.2 (0.0-0.4) X10*3/uL Baso # (Auto) 0.0 (0.0-0.2) X10*3/uL Abs Immat Gran (auto) 0.03 (0.00-0.03) X10*3/uL Absolute Neuts (auto) 4.8 (2.0-8.3) x10*3/uL Absolute Nucleated RBC 0.000 (0.0-0.012) X10*3/uL Nucleated RBC % (auto) 0.0 (0.0-0.2) /100WBC Sodium 137 (135-145) mmol/L Potassium 5.0 (3.3-5.1) mmol/L Chloride 106 (96-108) mmol/L Carbon Dioxide 24 (22-29) mmol/L Anion Gap 12 (12-20) BUN 55 H (9-16) mg/dL Creatinine 3.20 H (0.5-1.4) mg/dL Estim Creat Clear Calc 28.9 Estimated GFR 20 Random Glucose 64 (60-115) mg/dL Calcium 8.1 L D (8.4-10.2) mg/dL Magnesium 2.8 H (1.6-2.6) mg/dL Total Bilirubin 0.3 (0.0-1.0) mg/dL Direct Bilirubin 0.1 (0.0-0.5) mg/dL AST 29 (5-37) U/L ALT 26 (0-40) U/L Alkaline Phosphatase 168 H (39-117) U/L Total Protein 7.1 (6.5-8.0) g/dL Albumin 4.3 (3.5-5.0) g/dL TSH 0.38 (0.32-4.0) uIU/mL Independent Interpretation I performed an independent interpretation of an: EKG Interpretation: Rate: 52 Rhythm: sinus gavin [place]: normal Normal P waves. Normal MEGHANN. Normal QRS complex. ST T wave : no RU, inverted t waves aVL qTC: 431 prior studies: no acute ischemia The study has been interpreted contemporaneously by me. . Independent Historian Clinical information obtained from an independent historian. History obtained from or confirmed by: EMS External Record Review External record reviewed: Outpatient record Discharge Plan Discharge Clinical Impression: Serotonin syndrome Patient Disposition: Admitted As Inpatient Print Language: Slovak
[2024-07-18 12:07] LABS: Alanine Aminotransferase 26 U/L (0-40); Albumin Level 4.3 g/dL (3.5-5.0); Alkaline Phosphatase 168 U/L (39-117); Anion Gap 12 (12-20); Aspartate Amino Transferase 29 U/L (5-37); Bilirubin Direct 0.1 mg/dL (0.0-0.5); Bilirubin Total 0.3 mg/dL (0.0-1.0); Blood Urea Nitrogen 55 mg/dL (9-16); Calcium 8.1 mg/dL (8.4-10.2); Carbon Dioxide 24 mmol/L (22-29); Chloride 106 mmol/L (96-108); Creatinine Clr Calc Pharmacy 28.9; Estimated Glomerular Filt Rate 20; Glucose Random 64 mg/dL (60-115); Magnesium 2.8 mg/dL (1.6-2.6); Sodium 137 mmol/L (135-145); Total Protein 7.1 g/dL (6.5-8.0)
[2024-07-18 12:49] LABS: TSH reflex Free T4 0.38 uIU/mL (0.32-4.0)
[2024-07-18 13:11] VITALS: BP 113/70; PULSE 51; RESP 20; TEMP 36.7; O2SAT 97
--- NOTE | 2024-07-18 15:00 | PHA.MEDREC ---
Addendum entered by Michele Betts RPh 07/18/24 15:11: MED REC CHECKED BY [facility] Original Note: Pharmacy Consult ? Medication Reconciliation Pharmacy has completed the medication reconciliation. Spoke to pt to confirm meds and used med list pt was brought in with. Patient reports being on tizanidine PRN and methocarbamol PRN, miralax PRN, olanzapine 5 mg PM, lantus 8 units AM, and lorazepam 0.5 mg TID PRN, although they do not show up on the med list.
--- NOTE | 2024-07-18 15:01 | PM.IMHP ---
History of Present Illness Date of Service: 07/18/24 Attending physician on admission: Enzo Argueta Chief Complaint: intermittent twiching , hyperreflexia 54 yo male with seizures, polycystic kidney ds, DM1, hypthyroidism, prolonged Qt, anxiety and depression, schizoaffective disorder, asthma, CKD who notes he has had no new med changes (as per ed documentation-EMS was told he had med change with zonisamide but he denies it), patient is saying he is having twitching of his arms legs and face from 2-3 weeks , in ED patient also told that-he felt like he is going to fall, and he was also having facial twitches. He denies prior episode of twitching . When we saw the patient patient currently does not express twitching, question mild hyper reflexia but no clonus. Denies any confusion or any overt seizure. Patient denies any chest pain or shortness of breath or abdominal pain or fever or chills or nausea vomiting. Lab imaging reviewed: H&H stable around 11 Creatinine is around 3.2 near his baseline EKG sinus [place], qtc 431 ms . Patient received Ativan and Benadryl in the ED. admission was requested for post questionable twitching unclear etiology Review of Systems Review of Systems: As above. 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 Mother Hypertension Surgical History History of surgery on lower extremity History of dental surgery H/O colonoscopy Social History Household Members: None Housing: Condominium Alcohol intake: former Comment: pt med with tylenol Patient Tobacco Use Status: Former Tobacco user Tobacco use type: Cigarette Smoked in Last 30 Days: No e-Cigarette/Vaping Use: Never Used Second Hand Smoke Exposure: Yes Use of substances other than those prescribed or required for medical reasons: No Advance Directives: No Advance Directives Information Provided: Yes Do you have a plan to hurt others: No Plan service: No Current occupational status: disabled 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 Cognitive needs: No Hearing needs: No Vision needs: Yes (glasses) Meds Allergies Allergy/AdvReac Type Severity Reaction Status Date / Time atorvastatin AdvReac Intermediate elevated Verified 07/18/24 11:26 LFTs Active Medications: Current Medications Acetaminophen (Acetaminophen 325 Mg Tablet) 650 mg PO Q6H PRN PRN Reason: Pain, Mild (Pain Scale 1-3), fever or headache Calcium Carbonate (Calcium Carbonate 750 Mg Tab.Chew) 750 mg PO Q4H PRN PRN Reason: Heartburn Heparin Sodium (Porcine) (Heparin Sodium,Porcine 5,000 Unit/Ml Vial) 5,000 unit SUBCUT Q8H ANKIT Magnesium Hydroxide (Milk Of Magnesia 30 Ml Oral.Susp) 30 ml PO DAILY PRN PRN Reason: Constipation Melatonin (Melatonin 3 Mg Tablet) 6 mg PO BEDTIME PRN PRN Reason: Insomnia Sodium Chloride (0.9 % Sodium Chloride Flush 3 Ml Syringe) 3 ml IVFLUSH QSHIFT ANKIT Home Medications ?Medication ?Instructions ?Recorded ?Confirmed ?Last Taken ?Type lamotrigine 200 mg tablet 200 mg PO BID 05/08/20 07/18/24 07/18/24 09:00 History lorazepam 0.5 mg tablet 0.5 mg PO TID PRN Anxiety 05/08/20 07/18/24 Unknown History trazodone 50 mg tablet 50 mg PO BEDTIME PRN Insomnia 05/08/20 07/18/24 Unknown History pen needle, diabetic 32 gauge x #50 ea 07/25/20 03/02/24 Unknown History olanzapine 5 mg tablet 5 mg PO BEDTIME 08/16/21 07/18/24 Unknown History aripiprazole 5 mg tablet 5 mg PO DAILY 12/03/21 07/18/24 07/18/24 09:00 History dapagliflozin propanediol 10 mg 10 mg PO DAILY 07/30/22 07/18/2407/18/24 09:00 History tablet (Farxiga) fluoxetine 40 mg capsule 40 mg PO DAILY 12/18/23 07/18/24 07/18/24 09:00 History melatonin 5 mg tablet 5 mg PO BEDTIME 12/18/23 07/18/24 07/18/24 09:00 History zonisamide 100 mg capsule 100 mg PO QID 12/18/23 07/18/24 07/18/24 09:00 History sodium zirconium cyclosilicate 10 10 g PO MOWEFR@0904/15/24 07/18/24 Unknown History gram oral powder packet (Lokelri) sodium bicarbonate 650 mg tablet 650 mg PO QID 05/06/24 07/18/24 07/18/24 09:00 History acetaminophen 500 mg tablet 500 mg PO TID PRN fever or pain 07/18/24 07/18/24 Unknown History (Tylenol Extra Strength) albuterol sulfate 90 mcg/actuation 2 puff inhalation Q4H PRN wheezing 07/18/24 07/18/24 Unknown History aerosol inhaler calcium polycarbophil 625 mg 625 mg PO BID for constipation 07/18/24 07/18/24 07/18/24 09:00 History tablet (Fiber (calcium polycarbophil)) ergocalciferol (vitamin D2) 1,250 1,250 mcg PO WE@0907/18/24 07/18/24 Unknown History mcg (50,000 unit) capsule fluticasone propionate 220 1 puff PO DAILY 07/18/24 07/18/24 07/18/24 09:00 History mcg/actuation HFA aerosol inhaler insulin glargine 100 unit/mL (3 8 unit subcut DAILY 07/18/24 07/18/24 07/18/24 09:00 History mL) subcutaneous pen (Lantus Solostar U-100 Insulin) levothyroxine 125 mcg tablet 125 mcg PO DAILY@0600 07/18/24 07/18/24 07/18/24 09:00 History methocarbamol 750 mg tablet 750 mg PO Q8H PRN low back pain 07/18/24 07/18/24 Unknown History omeprazole 20 mg capsule,delayed 20 mg PO DAILY@0630 07/18/24 07/18/24 07/18/24 09:00 History release polyethylene glycol 3350 17 gram 17 g PO DAILY PRN Constipation 07/18/24 07/18/24 Unknown History oral powder packet (Miralax) Physical Exam Vital Signs and Narrative: Vital Signs: Last Vital Signs Temp 98.1 F 07/18/24 13:11 Pulse 51 07/18/24 13:11 Resp 20 07/18/24 13:11 BP 113/70 07/18/24 13:11 Pulse Ox 97 07/18/24 13:11 O2 Del Method Room Air 07/18/24 13:11 BMI result Body Mass Index 27.9 Appearance: Alert.? Oriented X3.? Eyes: Pupils equal, round and reactive to light.? cvs: rrr, [id number] . res: clear to auscultation ,no rhonchii or wheezing abd: no rebound or guarding ,nt, bs present. ext pulses present , no cyanosis . neuro: axo3 , nonfocal. psych: seems calm. Results Labs 07/18/24 11:47 07/18/24 11:47 Labs: Laboratory Results - last 24 hr 07/18/24 11:47 MCV 92.7 MCH 29.9 MCHC 32.3 RDW 13.2 Plt Count 183 MPV 8.4 L Immature Gran % (Auto) 0.4 Neut % (Auto) 61.2 Lymph % (Auto) 28.4 Jenkins % (Auto) 7.2 Eos % (Auto) 2.3 Baso % (Auto) 0.5 Lymph # (Auto) 2.2 Jenkins # (Auto) 0.6 Eos # (Auto) 0.2 Baso # (Auto) 0.0 Abs Immat Gran (auto) 0.03 Absolute Neuts (auto) 4.8 Absolute Nucleated RBC 0.000 Nucleated RBC % (auto) 0.0 Anion Gap 12 Estim Creat Clear Calc 28.9 Estimated GFR 20 Random Glucose 64 Calcium 8.1 L D Magnesium 2.8 H Total Bilirubin 0.3 Direct Bilirubin 0.1 AST 29 ALT 26 Alkaline Phosphatase 168 H Total Protein 7.1 Albumin 4.3 TSH 0.38 Assessment and Plan (1) Twitching: Status: Acute Plan 54 yo male with seizures, polycystic kidney ds, DM1, hypthyroidism, prolonged Qt, anxiety and depression, schizoaffective disorder, asthma, CKD : Patient was twitching 2-3 weeks, possible mild hyperreflexia. Twitching/questionable hyperreflexia: Differential diagnosis-possible related to psych medications-question tradative diskinesia vs ? seizure etc moniter on tele. neurochecks,seizure precautions received ativan and benadryl in ed. hold ablify,cut down prozac,also will add gentle hydration. neuro and psych eval. ckd stage 4 : stable dm: moniter fs with sliding scale coverage. anxiety depression, schizoaffective disorder:continue rest of meds expect hold ablify,cut down prozac to 20 mg(d/w psych Dr rutherford) asthma -mild intermittent -stable. continue home meds hypothyroidism: tsh 0.38 continue levothyroxine. dvt prophylax: s/c heparin patient will benefit at least observation stay-Twitching/questionable hyperreflexia: need neurochecks , tele monitering ,need neuro and psych eval. need close monitering Quality Stroke Does the patient have a stroke diagnosis?: No VTE Prior VTE?: No VTE Risk Level:: Medical - moderate - high VTE Device Contraindication: N/A - Device Ordered VTE Drug Contraindication: N/A - Med Ordered
[2024-07-18] MEDS: Heparin Sodium,Porcine 5,000 UNIT/ML VIAL 5000 UNIT SUBCUT ×2 (16:13→23:25)
[2024-07-18 16:16] VITALS: BP 126/74; PULSE 50; RESP 16; TEMP 36.8; O2SAT 98
[2024-07-18] MEDS: 0.9 % Sodium Chloride Flush 3 ML SYRINGE IVFLUSH ×2 (16:16→23:33)
[2024-07-18] MEDS: Sodium Bicarbonate 650 MG TABLET PO ×2 (18:06→23:25)
[2024-07-18] MEDS: Zonisamide 100 MG CAPSULE PO ×2 (18:06→23:24)
--- NOTE | 2024-07-18 19:46 | PC.NURSE ---
Took over care from Angelo Baptiste, pt requesting a sandwich and drink, pt is resting in bed with no sign of distress.
[2024-07-18 20:00] VITALS: BP 124/78; PULSE 67; RESP 18; TEMP 36.7; O2SAT 100
[2024-07-18] MEDS: lamoTRIgine 100 MG TABLET 200 MG PO (23:23)
[2024-07-18 23:24] VITALS: BP 125/63
[2024-07-18] MEDS: bisacodyL 5 MG TABLET.DR 10 MG PO (23:24)
[2024-07-18] MEDS: lisinopriL 2.5 MG TABLET PO (23:24)
[2024-07-18] MEDS: Gabapentin 300 MG CAPSULE PO (23:24)
[2024-07-18] MEDS: OLANZapine 5 MG TABLET PO (23:25)
[2024-07-18] MEDS: calcium polycarbophiL TABLET 1 TAB PO (23:25)
[2024-07-18] MEDS: Melatonin 3 MG TABLET 6 MG PO (23:25)
[2024-07-18 23:41] VITALS: BMI 29.4
[2024-07-18 23:57] VITALS: BP 105/67; PULSE 45; RESP 18; TEMP 36.1; O2SAT 99
[2024-07-19 03:42] VITALS: BP 104/58; PULSE 50; RESP 18; TEMP 36.3; O2SAT 96
[2024-07-19] MEDS: Levothyroxine Sodium 125 MCG TABLET PO (05:54)
[2024-07-19] MEDS: Heparin Sodium,Porcine 5,000 UNIT/ML VIAL 5000 UNIT SUBCUT ×3 (05:55→21:51)
[2024-07-19] MEDS: Omeprazole 20 MG CAPSULE.DR PO (05:55)
[2024-07-19] MEDS: Fluticasone Propionate 250 MCG BLST.W.DEV 1 PUFF INHALE (07:20)
[2024-07-19 07:22] VITALS: PULSE 50; RESP 14
[2024-07-19 07:44] VITALS: BP 117/61; PULSE 46; RESP 16; TEMP 36.3; O2SAT 98
[2024-07-19 08:41] LABS: Glucose, Whole Blood 119 mg/dL (60-115)
[2024-07-19] MEDS: Empagliflozin 10 MG TABLET PO (08:42)
[2024-07-19] MEDS: FLUoxetine HCl Oral Solution 20 MG/5 ML SOLUTION PO (08:42)
[2024-07-19] MEDS: Sodium Bicarbonate 650 MG TABLET PO ×3 (08:42→21:51)
[2024-07-19] MEDS: Gabapentin 300 MG CAPSULE PO (08:43)
[2024-07-19] MEDS: Sodium Zirconium Cyclosilicate 10 GM POWD.PACK PO (08:43)
[2024-07-19] MEDS: Zonisamide 100 MG CAPSULE PO ×3 (08:43→21:50)
[2024-07-19] MEDS: calcium polycarbophiL TABLET 1 TAB PO ×2 (08:43→21:50)
[2024-07-19] MEDS: lamoTRIgine 100 MG TABLET 200 MG PO ×2 (08:43→21:50)
[2024-07-19] MEDS: Atorvastatin Calcium 20 MG TABLET PO (08:43)
[2024-07-19] MEDS: Lactated Ringers 1,000 ML 80 ML IVCONT ×2 (08:49→21:47)
[2024-07-19] MEDS: 0.9 % Sodium Chloride Flush 3 ML SYRINGE IVFLUSH ×2 (08:54→21:51)
--- NOTE | 2024-07-19 09:22 | MHC.CM.PN ---
LYDIA 07/22/24, EMR REVIEWED PT ADMITTED W/TARDIVE DYSKINESIA VS CLONUS, CM MET W/PT WHO IS A&O, PT REPORTS HE LIVES IN AN APT ALONE, IS INDEP W/CARE/MOBILITY, GOES TO [facility] A [facility] DAY PROGRAM M-, PT REPORTS HIS GOAL FOR DC IS HOME AND RETURN TO DAY PROGRAM, PT REQUESTING CM CONTACT HIS FRIEDD/PRIMARY CONTACT MATEUS. PCP VERIFIED AND PT BELIEVES HE HAS A HCP AND THAT IS HIS FRIEND MATEUS, CM WILL FOLLOW UP W/MATEUS/[facility] IF NEEDED.
[2024-07-19 11:26] VITALS: BP 92/55; PULSE 56; RESP 16; TEMP 36; O2SAT 98
[2024-07-19 11:38] LABS: Glucose, Whole Blood 112 mg/dL (60-115)
--- NOTE | 2024-07-19 11:58 | PM.NEUROCN ---
History of Present Illness Data of Consult Service Date: 07/19/24 Primary Care Provider: Zeb Ca MD HPI Reason for consult: Twitches 54 yo male with seizures, polycystic kidney ds, DM1, hypthyroidism, prolonged Qt, anxiety and depression, schizoaffective disorder, asthma, CKD who notes he has had no new med changes (as per ed documentation-[facility] was told he had med change with zonisamide but he denies it), patient is saying he is having twitching of his arms legs and face from 2-3 weeks , in ED patient also told that-he felt like he is going to fall, and he was also having facial twitches. HE RECOGNIZE ME RIGHT AWAY AND STATED THAT HE WAS HAVING THESE TWITCHES FOR NO OBVIOUS REASON. No recent cold or flu-like illness he did not miss any doses Review of Systems Review of Systems: No recent trauma or cold or flu-like illness or missed doses. [facility] Past Medical History Medical History Polycystic kidney disease Lumbar spondylosis Degenerative joint disease of thoracic spine Overweight (BMI 25.0-29.9) Chronic kidney disease, stage 4 (severe) Prolonged QT interval Hyperkalemia Memory impairment Vitamin D deficiency Hypothyroidism Seizures Anxiety Fatty liver IBS (irritable colon syndrome) GERD (gastroesophageal reflux disease) Obesity (BMI 30-39.9) Schizoaffective disorder Asthma Epilepsy Essential hypertension Pure hypercholesterolemia FPC (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 Type 2 diabetes mellitus with diabetic chronic kidney disease Family History Family History Father No problems noted. Mother Hypertension Surgical History Surgical History History of surgery on lower extremity History of dental surgery H/O colonoscopy Social History Social History Household Members: None Housing: House Do you presently have visiting nurse or other home services: Yes (Medication administration) Alcohol intake: former Comment: pt med with tylenol Patient Tobacco Use Status: Former Tobacco user Tobacco use type: Cigarette Smoked in Last 30 Days: No e-Cigarette/Vaping Use: Never Used Patient Interested in Nicotine Replacement: No Patient Given Instructions on How to Stop Smoking: No Second Hand Smoke Exposure: No Use of substances other than those prescribed or required for medical reasons: No Currently Displaying Signs/Symptoms of Drug Intoxication Withdrawal: No Any prior treatment program specific to substance use: No Have you been hit, kicked, punched, or otherwise hurt by someone within the past year? 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 Cognitive needs: No Hearing needs: No Vision needs: Yes (glasses) Meds Allergies Allergy/AdvReac Type Severity Reaction Status Date / Time atorvastatin AdvReac Intermediate elevated Verified 07/18/24 11:26 LFTs Active Medications: Current Medications Acetaminophen (Acetaminophen 325 Mg Tablet) 650 mg PO Q6H PRN PRN Reason: Pain, Mild (Pain Scale 1-3), fever or headache Albuterol Sulfate (Albuterol Sulfate 90 Mcg 8 Gm Inhaler) 2 puff INHALE Q4H PRN PRN Reason: wheezing Atorvastatin Calcium (Atorvastatin Calcium 20 Mg Tablet) 20 mg PO DAILY [facility] Last Admin: 07/19/24 08:43 Dose: 20 mg Bisacodyl (Bisacodyl 5 Mg Tablet.Dr) 10 mg PO BEDTIME [facility] Last Admin: 07/18/24 23:24 Dose: 10 mg Calcium Carbonate (Calcium Carbonate 750 Mg Tab.Chew) 750 mg PO Q4H PRN PRN Reason: Heartburn Calcium Polycarbophil (Calcium Polycarbophil Tablet) 1 tab PO BID [facility] Last Admin: 07/19/24 08:43 Dose: 1 tab Empagliflozin (Empagliflozin 10 Mg Tablet) 10 mg PO DAILY [facility] Last Admin: 07/19/24 08:42 Dose: 10 mg Ergocalciferol (Ergocalciferol (Vitamin D2) 1,250 Mcg Capsule) 1,250 mcg PO WE@0900 [facility] Fluoxetine HCl (Fluoxetine Hcl Oral Solution 20 Mg/5 Ml Solution) 20 mg PO DAILY [facility] Last Admin: 07/19/24 08:42 Dose: 20 mg Fluticasone Propionate (Fluticasone Propionate 250 Mcg Blst.W.Dev) 1 puff INHALE RDAILY [facility] Last Admin: 07/19/24 07:20 Dose: 1 puff Gabapentin (Gabapentin 300 Mg Capsule) 300 mg PO BID [facility] Last Admin: 07/19/24 08:43 Dose: 300 mg Glucose (Glucose Gel 15 Gm Gel..Gram.) 15 gm PO Q15M PRN; Protocol PRN Reason: per Hypoglycemia Standing Ord. Heparin Sodium (Porcine) (Heparin Sodium,Porcine 5,000 Unit/Ml Vial) 5,000 unit SUBCUT Q8H [facility] Last Admin: 07/19/24 05:55 Dose: 5,000 unit Lactated Ringer's (Lr) 1,000 mls @ 80 mls/hr IVCONT .[id number] [facility] Last Admin: 07/19/24 08:49 Dose: 80 mls/hr Dextrose (D10) 250 mls @ 750 mls/hr IV Q15M PRN; Protocol PRN Reason: per Hypoglycemia Standing Ord. Insulin Glargine (Insulin Glargine,Hum.Rec.Anlog 100 Unit/Ml 10 Ml Vial) 8 unit SUBCUT DAILY [facility] Last Admin: 07/19/24 08:43 Dose: Not Given Insulin Human Lispro (Insulin Lispro 100 Unit/Ml 3 Ml Vial) 0 unit SUBCUT QIDACHS [facility]; Protocol Lamotrigine (Lamotrigine 100 Mg Tablet) 200 mg PO BID [facility] Last Admin: 07/19/24 08:43 Dose: 200 mg Levothyroxine Sodium (Levothyroxine Sodium 125 Mcg Tablet) 125 mcg PO DAILY@0600 [facility] Last Admin: 07/19/24 05:54 Dose: 125 mcg Lisinopril (Lisinopril 2.5 Mg Tablet) 2.5 mg PO BID [facility]; Protocol Last Admin: 07/18/24 23:24 Dose: 2.5 mg Lorazepam (Lorazepam 0.5 Mg Tablet) 0.5 mg PO TID PRN PRN Reason: Anxiety Lorazepam (Lorazepam 2 Mg/Ml Vial) 1 mg IVPUSH ONCE PRN PRN Reason: twitching Magnesium Hydroxide (Milk Of Magnesia 30 Ml Oral.Susp) 30 ml PO DAILY PRN PRN Reason: Constipation Melatonin (Melatonin 3 Mg Tablet) 6 mg PO BEDTIME [facility] Last Admin: 07/18/24 23:25 Dose: 6 mg Methocarbamol (Methocarbamol 750 Mg Tablet) 750 mg PO Q8H PRN PRN Reason: low back pain Olanzapine (Olanzapine 5 Mg Tablet) 5 mg PO BEDTIME [facility] Last Admin: 07/18/24 23:25 Dose: 5 mg Omeprazole (Omeprazole 20 Mg Capsule.Dr) 20 mg PO DAILY@0630 [facility] Last Admin: 07/19/24 05:55 Dose: 20 mg Polyethylene Glycol (Polyethylene Glycol 3350 17 Gm Powd.Pack) 17 gm PO DAILY PRN PRN Reason: Constipation Sodium Bicarbonate (Sodium Bicarbonate 650 Mg Tablet) 650 mg PO QID [facility] Last Admin: 07/19/24 08:42 Dose: 650 mg Sodium Chloride (0.9 % Sodium Chloride Flush 3 Ml Syringe) 3 ml IVFLUSH QSHIFT [facility] Last Admin: 07/19/24 08:54 Dose: 3 ml Sodium Zirconium Cyclosilicate (Sodium Zirconium Cyclosilicate 10 Gm Powd.Pack) 10 gm PO MOWEFR@0900 [facility] Last Admin: 07/19/24 08:43 Dose: 10 gm Tizanidine HCl (Tizanidine Hcl 4 Mg Tablet) 4 mg PO Q8H PRN PRN Reason: muscle spasms Trazodone HCl (Trazodone Hcl 50 Mg Tablet) 50 mg PO BEDTIME PRN PRN Reason: Insomnia Zonisamide (Zonisamide 100 Mg Capsule) 100 mg PO QID [facility] Last Admin: 07/19/24 08:43 Dose: 100 mg Home Medications ?Medication ?Instructions ?Recorded ?Confirmed ?Last Taken ?Type lamotrigine 200 mg tablet 200 mg PO BID 05/08/20 07/18/24 07/18/24 09:00 History lorazepam 0.5 mg tablet 0.5 mg PO TID PRN Anxiety 05/08/20 07/18/24 Unknown History trazodone 50 mg tablet 50 mg PO BEDTIME PRN Insomnia 05/08/20 07/18/24 Unknown History pen needle, diabetic 32 gauge x #50 ea 07/25/20 03/02/24 Unknown History olanzapine 5 mg tablet 5 mg PO BEDTIME 08/16/21 07/18/24 Unknown History aripiprazole 5 mg tablet 5 mg PO DAILY 12/03/21 07/18/24 07/18/24 09:00 History dapagliflozin propanediol 10 mg 10 mg PO DAILY 07/30/22 07/18/24 07/18/24 09:00 History tablet (Farxiga) fluoxetine 40 mg capsule 40 mg PO DAILY 12/18/23 07/18/24 07/18/24 09:00 History melatonin 5 mg tablet 5 mg PO BEDTIME 12/18/23 07/18/24 07/18/24 09:00 History zonisamide 100 mg capsule 100 mg PO QID 12/18/23 07/18/24 07/18/24 09:00 History sodium zirconium cyclosilicate 10 10 g PO MOWEFR@89904/15/24 07/18/24 Unknown History gram oral powder packet (Lokelmn) sodium bicarbonate 650 mg tablet 650 mg PO QID 05/06/24 07/18/24 07/18/24 09:00 History acetaminophen 500 mg tablet 500 mg PO TID PRN fever or pain 07/18/24 07/18/24 Unknown History (Tylenol Extra Strength) albuterol sulfate 90 mcg/actuation 2 puff inhalation Q4H PRN wheezing 07/18/24 07/18/24 Unknown History aerosol inhaler calcium polycarbophil 625 mg 625 mg PO BID for constipation 07/18/24 07/18/24 07/18/24 09:00 History tablet (Fiber (calcium polycarbophil)) ergocalciferol (vitamin D2) 1,250 1,250 mcg PO WE@0907/18/24 07/18/24 Unknown History mcg (50,000 unit) capsule fluticasone propionate 220 1 puff PO DAILY 07/18/24 07/18/24 07/18/24 09:00 History mcg/actuation HFA aerosol inhaler insulin glargine 100 unit/mL (3 8 unit subcut DAILY 07/18/24 07/18/24 07/18/24 09:00 History mL) subcutaneous pen (Lantus Solostar U-100 Insulin) levothyroxine 125 mcg tablet 125 mcg PO DAILY@0600 07/18/24 07/18/24 07/18/24 09:00 History methocarbamol 750 mg tablet 750 mg PO Q8H PRN low back pain 07/18/24 07/18/24 Unknown History omeprazole 20 mg capsule,delayed 20 mg PO DAILY@0630 07/18/24 07/18/24 07/18/24 09:00 History release polyethylene glycol 3350 17 gram 17 g PO DAILY PRN Constipation 07/18/24 07/18/24 Unknown History oral powder packet (Miralax) Physical Exam Vital Signs: Vital Signs: Last Vital Signs Temp 96.8 F 07/19/24 11:26 Pulse 56 07/19/24 11:26 Resp 16 07/19/24 11:26 BP 92/55 L 07/19/24 11:26 Pulse Ox 98 07/19/24 11:26 O2 Del Method Room Air 07/19/24 11:26 BMI result Body Mass Index 29.4 Neuro: Other: He was alert and awake with normal spontaneity of speech fluency comprehension and affect. Face was symmetrical. Visual chu are full. There was no obvious focal weakness. Plantars were flexor. 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 His seizure disorder have been well controlled with zonisamide for many years. Though frontal lobe seizure sometime can present as twitches or just motor phenomena without alteration of consciousness, I would also consider myoclonus related to metabolic toxic abnormality such as serotonin syndrome. At this time, continuation of underlying dose of zonisamide is recommended and attention to rest of his medicine profile. Procedures Date of Service Date of Service: 07/19/24
--- NOTE | 2024-07-19 13:59 | P.PNIM_ITS ---
Subjective Subjective Date of Service: 07/19/24 Interval History: body twiching Review of Systems no new episodes has boderline bp otherwise asymptomatic Physical Exam 2 Vital Signs: Vital Signs: Last Vital Signs Temp 96.8 F 07/19/24 11:26 Pulse 56 07/19/24 11:26 Resp 16 07/19/24 11:26 BP 92/55 L 07/19/24 11:26 Pulse Ox 98 07/19/24 11:26 O2 Del Method Room Air 07/19/24 11:26 BMI result Body Mass Index 29.4 Appearance: Alert.? Oriented X3.? Eyes: Pupils equal, round and reactive to light.? cvs: rrr, [id number] . res: clear to auscultation ,no rhonchii or wheezing abd: no rebound or guarding ,nt, bs present. ext pulses present , no cyanosis . neuro: axo3 , Face was symmetrical. Visual chu are full. There was no obvious focal weakness. Plantars were flexor. psych: seems calm. Objective Data Active Medications Acetaminophen (Acetaminophen 325 Mg Tablet) 650 mg PO Q6H PRN PRN Reason: Pain, Mild (Pain Scale 1-3), fever or headache Albuterol Sulfate (Albuterol Sulfate 90 Mcg 8 Gm Inhaler) 2 puff INHALE Q4H PRN PRN Reason: wheezing Atorvastatin Calcium (Atorvastatin Calcium 20 Mg Tablet) 20 mg PO DAILY [facility] Last Admin: 07/19/24 08:43 Dose: 20 mg Documented By: DEEDEE Bisacodyl (Bisacodyl 5 Mg Tablet.Dr) 10 mg PO BEDTIME [facility] Last Admin: 07/18/24 23:24 Dose: 10 mg Documented By: SALMOD Calcium Carbonate (Calcium Carbonate 750 Mg Tab.Chew) 750 mg PO Q4H PRN PRN Reason: Heartburn Calcium Polycarbophil (Calcium Polycarbophil Tablet) 1 tab PO BID [facility] Last Admin: 07/19/24 08:43 Dose: 1 tab Documented By: DEEDEE Empagliflozin (Empagliflozin 10 Mg Tablet) 10 mg PO DAILY [facility] Last Admin: 07/19/24 08:42 Dose: 10 mg Documented By: DEEDEE Ergocalciferol (Ergocalciferol (Vitamin D2) 1,250 Mcg Capsule) 1,250 mcg PO WE@0900 [facility] Fluoxetine HCl (Fluoxetine Hcl Oral Solution 20 Mg/5 Ml Solution) 20 mg PO DAILY [facility] Last Admin: 07/19/24 08:42 Dose: 20 mg Documented By: DEEDEE Fluticasone Propionate (Fluticasone Propionate 250 Mcg Blst.W.Dev) 1 puff INHALE RDAILY [facility] Last Admin: 07/19/24 07:20 Dose: 1 puff Documented By: GLUCARA Gabapentin (Gabapentin 300 Mg Capsule) 300 mg PO BID [facility] Last Admin: 07/19/24 08:43 Dose: 300 mg Documented By: DEEDEE Glucose (Glucose Gel 15 Gm Gel..Gram.) 15 gm PO Q15M PRN; Protocol PRN Reason: per Hypoglycemia Standing Ord. Heparin Sodium (Porcine) (Heparin Sodium,Porcine 5,000 Unit/Ml Vial) 5,000 unit SUBCUT Q8H [facility] Last Admin: 07/19/24 05:55 Dose: 5,000 unit Documented By: PEYMAN Lactated Ringer's (Lr) 1,000 mls @ 80 mls/hr IVCONT .[id number] [facility] Last Admin: 07/19/24 08:49 Dose: 80 mls/hr Documented By: DEEDEE Dextrose (D10) 250 mls @ 750 mls/hr IV Q15M PRN; Protocol PRN Reason: per Hypoglycemia Standing Ord. Insulin Glargine (Insulin Glargine,Hum.Rec.Anlog 100 Unit/Ml 10 Ml Vial) 8 unit SUBCUT DAILY [facility] Last Admin: 07/19/24 08:43 Dose: Not Given Documented By: DEEDEE Non-Admin Reason: Physician Held Med Insulin Human Lispro (Insulin Lispro 100 Unit/Ml 3 Ml Vial) 0 unit SUBCUT QIDACHS [facility]; Protocol Last Admin: 07/19/24 12:54 Dose: Not Given Documented By: DEEDEE Non-Admin Reason: No Insulin Coverage Lamotrigine (Lamotrigine 100 Mg Tablet) 200 mg PO BID [facility] Last Admin: 07/19/24 08:43 Dose: 200 mg Documented By: DEEDEE Levothyroxine Sodium (Levothyroxine Sodium 125 Mcg Tablet) 125 mcg PO DAILY@0600 [facility] Last Admin: 07/19/24 05:54 Dose: 125 mcg Documented By: PEYMAN Lisinopril (Lisinopril 2.5 Mg Tablet) 2.5 mg PO BID [facility]; Protocol Last Admin: 07/18/24 23:24 Dose: 2.5 mg Documented By: PEYMAN Lorazepam (Lorazepam 0.5 Mg Tablet) 0.5 mg PO TID PRN PRN Reason: Anxiety Lorazepam (Lorazepam 2 Mg/Ml Vial) 1 mg IVPUSH ONCE PRN PRN Reason: twitching Magnesium Hydroxide (Milk Of Magnesia 30 Ml Oral.Susp) 30 ml PO DAILY PRN PRN Reason: Constipation Melatonin (Melatonin 3 Mg Tablet) 6 mg PO BEDTIME [facility] Last Admin: 07/18/24 23:25 Dose: 6 mg Documented By: PEYMAN Methocarbamol (Methocarbamol 750 Mg Tablet) 750 mg PO Q8H PRN PRN Reason: low back pain Olanzapine (Olanzapine 5 Mg Tablet) 5 mg PO BEDTIME [facility] Last Admin: 07/18/24 23:25 Dose: 5 mg Documented By: PEYMAN Omeprazole (Omeprazole 20 Mg Capsule.Dr) 20 mg PO DAILY@0630 [facility] Last Admin: 07/19/24 05:55 Dose: 20 mg Documented By: PEYMAN Polyethylene Glycol (Polyethylene Glycol 3350 17 Gm Powd.Pack) 17 gm PO DAILY PRN PRN Reason: Constipation Sodium Bicarbonate (Sodium Bicarbonate 650 Mg Tablet) 650 mg PO QID [facility] Last Admin: 07/19/24 08:42 Dose: 650 mg Documented By: DEEDEE Sodium Chloride (0.9 % Sodium Chloride Flush 3 Ml Syringe) 3 ml IVFLUSH QSHIFT [facility] Last Admin: 07/19/24 08:54 Dose: 3 ml Documented By: DEEDEE Sodium Zirconium Cyclosilicate (Sodium Zirconium Cyclosilicate 10 Gm Powd.Pack) 10 gm PO MOWEFR@0900 [facility] Last Admin: 07/19/24 08:43 Dose: 10 gm Documented By: DEEDEE Tizanidine HCl (Tizanidine Hcl 4 Mg Tablet) 4 mg PO Q8H PRN PRN Reason: muscle spasms Trazodone HCl (Trazodone Hcl 50 Mg Tablet) 50 mg PO BEDTIME PRN PRN Reason: Insomnia Zonisamide (Zonisamide 100 Mg Capsule) 100 mg PO QID [facility] Last Admin: 07/19/24 08:43 Dose: 100 mg Documented By: DEEDEE Labs 07/18/24 11:47 07/18/24 11:47 Labs: Laboratory Results - last 24 hr 07/19/24 07/19/24 08:36 11:33 POC Glucose 119 H 112 Assessment and Plan (1) Twitching: Status: Acute Plan 54 yo male with seizures, polycystic kidney ds, DM1, hypthyroidism, prolonged Qt, anxiety and depression, schizoaffective disorder, asthma, CKD : Patient was twitching 2-3 weeks, possible mild hyperreflexia. Twitching/questionable hyperreflexia: Differential diagnosis-possible related to psych medications-question tradative diskinesia vs ? seizure moniter on tele. neurochecks,seizure precautions received ativan and benadryl in ed. hold ablify,cut down prozac,also will add gentle hydration. seen by neuro -myoclonus related to metabolic toxic abnormality such as serotonin syndrome ? psych eval pending -continue prn iv ativan if need for myoclonus vs twiching . boderline bp-hold [place] and added ivf Lr@100 ml/hr ckd stage 4 : stable dm: moniter fs with sliding scale coverage. anxiety depression, schizoaffective disorder:continue rest of meds expect hold ablify,cut down prozac to 20 mg(d/w psych Dr rutherford) asthma -mild intermittent -stable. continue home meds hypothyroidism: tsh 0.38 continue levothyroxine. dvt prophylax: s/c heparin patient will benefit at least observation stay-Twitching/questionable hyperreflexia: need neurochecks , tele monitering ,need neuro and psych eval. need close monitering Quality Stroke Does the patient have a stroke diagnosis?: No VTE Prior VTE?: No VTE Risk Level:: Medical - moderate - high VTE Device Contraindication: N/A - Device Ordered VTE Drug Contraindication: N/A - Med Ordered
[2024-07-19 15:20] VITALS: BP 112/61; PULSE 56; RESP 18; TEMP 36.1; O2SAT 100
--- NOTE | 2024-07-19 15:27 | P.CNPS_ITS ---
History of Present Illness Date of Service: 07/19/2024 Chief Complaint: Tardative dyskinesia vs clonus Reason for Consult: twitching face, legs Requesting physician: Enzo Argueta Discussed with referring provider: Yes Sources of Information: patient interviewed, chart reviewed and crisis/core team assessment reviewed HPI Narrative: Mr. Munoz is a 54 year-old male who came to ED due to 2-3week hx of twitching of face, tingling of the head and ultimately twitching of legs. In the ED, he was noted to have hyperreflexia. He was given ativan and benadryl. Pt seen in his room. He is resting comfortably, no signs of distress. On exam- upper extremities, no notable spontaneous clonus. slight feeling of spasm on right shoulder as this director underwriter sales asked pt to extend both arms, and pushed hand towards pt's body. Noted some muscle weakness again at the level of shoulder when he extended arms for brief seconds. No cogwheel nor rigidity noted on both arms. No twitching of face during examination. No noted involuntary perioral movements. No noted rigidity on lower extremities. No sweating nor hyperthermia reported during episodes, nor during my examinations. Pt presents alert, oriented to place, month, year, date and situation. He has been on prozac 40mg po daily for several years. On the dose for at least one year. He is not on any other serotonergic agents. [facility] Medical History Polycystic kidney disease Lumbar spondylosis Degenerative joint disease of thoracic spine Overweight (BMI 25.0-29.9) Chronic kidney disease, stage 4 (severe) Prolonged QT interval Hyperkalemia Memory impairment Vitamin D deficiency Hypothyroidism Seizures Anxiety Fatty liver IBS (irritable colon syndrome) GERD (gastroesophageal reflux disease) Obesity (BMI 30-39.9) Schizoaffective disorder Asthma Epilepsy Essential hypertension Pure hypercholesterolemia detention (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 Type 2 diabetes mellitus with diabetic chronic kidney disease Surgical History History of surgery on lower extremity History of dental surgery H/O colonoscopy Diagnostics Vital Signs (24Hr): Vital Signs - 24 hr 07/18/24 16:16 07/18/24 20:00 07/18/24 23:24 Temperature 98.3 F 98.0 F Pulse Rate 50 67 Respiratory Rate 16 18 Blood Pressure 126/74 124/78 125/63 Pulse Oximetry 98 100 Oxygen Delivery Method Room Air Room Air 07/18/24 23:57 07/19/24 03:42 07/19/24 07:22 Temperature 97.0 F 97.4 F Pulse Rate 45 L 50 50 Respiratory Rate 18 18 14 Blood Pressure 105/67 104/58 L Pulse Oximetry 99 96 Oxygen Delivery Method Room Air Room Air 07/19/24 07:44 07/19/24 11:26 07/19/24 15:20 Temperature 97.3 F 96.8 F 97.0 F Pulse Rate 46 L 56 56 Respiratory Rate 16 16 18 Blood Pressure 117/61 92/55 L 112/61 Pulse Oximetry 98 98 100 Oxygen Delivery Method Room Air Room Air Room Air BMI result Body Mass Index 29.4 Labs 07/18/24 11:47 07/18/24 11:47 Labs: Laboratory Results - last 48 hr 07/18/24 07/19/24 07/19/24 11:47 08:36 11:33 WBC 7.9 RBC 3.71 L Hgb 11.1 L Hct 34.4 L MCV 92.7 MCH 29.9 MCHC 32.3 RDW 13.2 Plt Count 183 MPV 8.4 L Immature Gran % (Auto) 0.4 Neut % (Auto) 61.2 Lymph % (Auto) 28.4 Fannin % (Auto) 7.2 Eos % (Auto) 2.3 Baso % (Auto) 0.5 Lymph # (Auto) 2.2 Fannin # (Auto) 0.6 Eos # (Auto) 0.2 Baso # (Auto) 0.0 Abs Immat Gran (auto) 0.03 Absolute Neuts (auto) 4.8 Absolute Nucleated RBC 0.000 Nucleated RBC % (auto) 0.0 Sodium 137 Potassium 5.0 Chloride 106 Carbon Dioxide 24 Anion Gap 12 BUN 55 H Creatinine 3.20 H Estim Creat Clear Calc 28.9 Estimated GFR 20 POC Glucose 119 H 112 Random Glucose 64 Calcium 8.1 L D Magnesium 2.8 H Total Bilirubin 0.3 Direct Bilirubin 0.1 AST 29 ALT 26 Alkaline Phosphatase 168 H Total Protein 7.1 Albumin 4.3 TSH 0.38 Medications Medications Current Medications Acetaminophen (Acetaminophen 325 Mg Tablet) 650 mg PO Q6H PRN PRN Reason: Pain, Mild (Pain Scale 1-3), fever or headache Albuterol Sulfate (Albuterol Sulfate 90 Mcg 8 Gm Inhaler) 2 puff INHALE Q4H PRN PRN Reason: wheezing Atorvastatin Calcium (Atorvastatin Calcium 20 Mg Tablet) 20 mg PO DAILY [facility] Last Admin: 07/19/24 08:43 Dose: 20 mg Bisacodyl (Bisacodyl 5 Mg Tablet.Dr) 10 mg PO BEDTIME [facility] Last Admin: 07/18/24 23:24 Dose: 10 mg Calcium Carbonate (Calcium Carbonate 750 Mg Tab.Chew) 750 mg PO Q4H PRN PRN Reason: Heartburn Calcium Polycarbophil (Calcium Polycarbophil Tablet) 1 tab PO BID [facility] Last Admin: 07/19/24 08:43 Dose: 1 tab Empagliflozin (Empagliflozin 10 Mg Tablet) 10 mg PO DAILY [facility] Last Admin: 07/19/24 08:42 Dose: 10 mg Ergocalciferol (Ergocalciferol (Vitamin D2) 1,250 Mcg Capsule) 1,250 mcg PO WE@0900 [facility] Fluoxetine HCl (Fluoxetine Hcl Oral Solution 20 Mg/5 Ml Solution) 20 mg PO DAILY [facility] Last Admin: 07/19/24 08:42 Dose: 20 mg Fluticasone Propionate (Fluticasone Propionate 250 Mcg Blst.W.Dev) 1 puff INHALE RDAILY [facility] Last Admin: 07/19/24 07:20 Dose: 1 puff Gabapentin (Gabapentin 300 Mg Capsule) 300 mg PO BID [facility] Last Admin: 07/19/24 08:43 Dose: 300 mg Glucose (Glucose Gel 15 Gm Gel..Gram.) 15 gm PO Q15M PRN; Protocol PRN Reason: per Hypoglycemia Standing Ord. Heparin Sodium (Porcine) (Heparin Sodium,Porcine 5,000 Unit/Ml Vial) 5,000 unit SUBCUT Q8H [facility] Last Admin: 07/19/24 14:48 Dose: 5,000 unit Lactated Ringer's (Lr) 1,000 mls @ 100 mls/hr IVCONT .Q10H [facility] Last Admin: 07/19/24 08:49 Dose: 80 mls/hr Dextrose (D10) 250 mls @ 750 mls/hr IV Q15M PRN; Protocol PRN Reason: per Hypoglycemia Standing Ord. Insulin Glargine (Insulin Glargine,Hum.Rec.Anlog 100 Unit/Ml 10 Ml Vial) 8 unit SUBCUT DAILY [facility] Last Admin: 07/19/24 08:43 Dose: Not Given Insulin Human Lispro (Insulin Lispro 100 Unit/Ml 3 Ml Vial) 0 unit SUBCUT QIDACHS [facility]; Protocol Last Admin: 07/19/24 12:54 Dose: Not Given Lamotrigine (Lamotrigine 100 Mg Tablet) 200 mg PO BID [facility] Last Admin: 07/19/24 08:43 Dose: 200 mg Levothyroxine Sodium (Levothyroxine Sodium 125 Mcg Tablet) 125 mcg PO DAILY@0600 [facility] Last Admin: 07/19/24 05:54 Dose: 125 mcg Lisinopril (Lisinopril 2.5 Mg Tablet) 2.5 mg PO BID [facility]; Protocol Last Admin: 07/18/24 23:24 Dose: 2.5 mg Lorazepam (Lorazepam 0.5 Mg Tablet) 0.5 mg PO TID PRN PRN Reason: Anxiety Lorazepam (Lorazepam 2 Mg/Ml Vial) 1 mg IVPUSH Q12H PRN PRN Reason: twitching Magnesium Hydroxide (Milk Of Magnesia 30 Ml Oral.Susp) 30 ml PO DAILY PRN PRN Reason: Constipation Melatonin (Melatonin 3 Mg Tablet) 6 mg PO BEDTIME [facility] Last Admin: 07/18/24 23:25 Dose: 6 mg Methocarbamol (Methocarbamol 750 Mg Tablet) 750 mg PO Q8H PRN PRN Reason: low back pain Olanzapine (Olanzapine 5 Mg Tablet) 5 mg PO BEDTIME [facility] Last Admin: 07/18/24 23:25 Dose: 5 mg Omeprazole (Omeprazole 20 Mg Capsule.Dr) 20 mg PO DAILY@0630 [facility] Last Admin: 07/19/24 05:55 Dose: 20 mg Polyethylene Glycol (Polyethylene Glycol 3350 17 Gm Powd.Pack) 17 gm PO DAILY PRN PRN Reason: Constipation Sodium Bicarbonate (Sodium Bicarbonate 650 Mg Tablet) 650 mg PO QID [facility] Last Admin: 07/19/24 14:47 Dose: 650 mg Sodium Chloride (0.9 % Sodium Chloride Flush 3 Ml Syringe) 3 ml IVFLUSH QSHIFT [facility] Last Admin: 07/19/24 08:54 Dose: 3 ml Sodium Zirconium Cyclosilicate (Sodium Zirconium Cyclosilicate 10 Gm Powd.Pack) 10 gm PO MOWEFR@0900 [facility] Last Admin: 07/19/24 08:43 Dose: 10 gm Tizanidine HCl (Tizanidine Hcl 4 Mg Tablet) 4 mg PO Q8H PRN PRN Reason: muscle spasms Trazodone HCl (Trazodone Hcl 50 Mg Tablet) 50 mg PO BEDTIME PRN PRN Reason: Insomnia Zonisamide (Zonisamide 100 Mg Capsule) 100 mg PO QID [facility] Last Admin: 07/19/24 14:47 Dose: 100 mg Allergies Allergies Allergy/AdvReac Type Severity Reaction Status Date / Time atorvastatin AdvReac Intermediate elevated Verified 07/18/24 11:26 LFTs Assessment & Plan Assessment & Plan (1) Twitching: Status: Acute Code(s): R25.3 - Fasciculation Plan Mr. Munoz is a 54 year-old male who self presented [place] [facility] [place] due to facial twitching, feeling of head tingling, eventually twitching of legs. He is currently not displaying lower extremity clonus. Noted shoulder spams when he extends both arms, mild feeling of clonus on left side, non on right. No rigidity. No sweatiness nor hyperthermia. No feeling of restlessness. I do not suspect serotonin syndrome due to 1) most twitching seems to have been of the face (serotonin syndrome is usually lower extremity clonus- although noted in ED, not present today) with no associated restlessness (or even akathisia seen in serotonin syndrome) nor hyperthermia nor sweating 2) he has been on prozac for several years, current dose for at least one year, no other serotonergic agents. Usually, serotonin syndrome develops within 24 hrs of initiation or change in dose or addition of another serotonergic syndrome. Also, it has resolved and he is still on prozac, although lower dose but without any medication like periactin to block serotonin. Most symptoms seem to have resolved- although pt does report some residual intermittent twitching of arms, and face, not so much at this point legs. No sweating as mentioned before. Nor sense of restlessness. PLAN - other considerations myoclonus in chronic renal disease, hemifacial spasm, gabapentin toxicity causing myoclonus in renal disease - can try stopping prozac- it does have a long half life, therefore, less risk of discontinuation syndrome. If in fact serotonin is cause of clonus, can add periactin 2mg po tid- monitor resolution of clonus and over sedation. once resolve d/c periactin. - gabapentin toxicity in renal disease- can try lowering to 200mg po daily given that his creatinine clearance is less than 30. Total time managing care of this patient today ____ minutes.
[2024-07-19 16:13] LABS: Glucose, Whole Blood 94 mg/dL (60-115)
[2024-07-19 19:30] VITALS: BP 146/84; PULSE 54; TEMP 36.5; O2SAT 94
[2024-07-19 21:05] LABS: Glucose, Whole Blood 123 mg/dL (60-115)
[2024-07-19] MEDS: OLANZapine 5 MG TABLET PO (21:50)
[2024-07-19] MEDS: bisacodyL 5 MG TABLET.DR 10 MG PO (21:51)
[2024-07-19] MEDS: Melatonin 3 MG TABLET 6 MG PO (21:51)
[2024-07-20] VITALS: BP 133/66; PULSE 44; RESP 19; TEMP 36.6; O2SAT 97
[2024-07-20 03:22] VITALS: BP 120/59; PULSE 44; RESP 16; TEMP 36.1; O2SAT 99
[2024-07-20] MEDS: Omeprazole 20 MG CAPSULE.DR PO (05:32)
[2024-07-20] MEDS: Levothyroxine Sodium 125 MCG TABLET PO (05:32)
[2024-07-20] MEDS: Heparin Sodium,Porcine 5,000 UNIT/ML VIAL 5000 UNIT SUBCUT (05:32)
[2024-07-20 07:02] LABS: Anion Gap 12 (12-20); Blood Urea Nitrogen 66 mg/dL (9-16); Calcium 8.9 mg/dL (8.4-10.2); Carbon Dioxide 22 mmol/L (22-29); Chloride 114 mmol/L (96-108); Creatinine Clr Calc Pharmacy 25.7; Estimated Glomerular Filt Rate 17; Glucose Random 102 mg/dL (60-115); Potassium 5.1 mmol/L (3.3-5.1); Sodium 143 mmol/L (135-145)
[2024-07-20 07:27] LABS: Glucose, Whole Blood 101 mg/dL (60-115)
[2024-07-20] MEDS: Fluticasone Propionate 250 MCG BLST.W.DEV 1 PUFF INHALE (07:58)
[2024-07-20 07:59] VITALS: PULSE 54; RESP 16; O2SAT 100
[2024-07-20 08:00] VITALS: BP 136/71; PULSE 51; RESP 20; TEMP 36.6; O2SAT 100
[2024-07-20] MEDS: Lactated Ringers 1,000 ML 80 ML IVCONT (09:50)
[2024-07-20] MEDS: Insulin Glargine,Hum.rec.anlog 100 UNIT/ML 10 ML VIAL 8 UNIT SUBCUT (09:51)
[2024-07-20] MEDS: Sodium Bicarbonate 650 MG TABLET PO (09:52)
[2024-07-20] MEDS: Zonisamide 100 MG CAPSULE PO (09:52)
[2024-07-20] MEDS: calcium polycarbophiL TABLET 1 TAB PO (09:52)
[2024-07-20] MEDS: Gabapentin 100 MG CAPSULE 200 MG PO (09:52)
[2024-07-20] MEDS: Empagliflozin 10 MG TABLET PO (09:52)
[2024-07-20] MEDS: Atorvastatin Calcium 20 MG TABLET PO (09:52)
[2024-07-20] MEDS: lamoTRIgine 100 MG TABLET 200 MG PO (09:52)
[2024-07-20 11:17] LABS: Glucose, Whole Blood 118 mg/dL (60-115)
--- NOTE | 2024-07-20 12:18 | PM.DS ---
DS: Providers Provider Date of Service: 07/20/24 Date of admission: 07/18/24 14:51 Date of discharge: 07/20/24 Primary care physician: Zeb Ca MD Consults: 07/18/24 14:59 Consult to Neurology Routine Consulting Provider: [facility] Reason for consultation: ?seizure ,intermittwnt twiching/mild hyperreflexia Has provider been notified: No 07/18/24 15:37 Consult to Psychiatry Routine Consulting Provider: [facility] Psych Covering Reason for consultation: Twitching/questionable hyperreflexia-?medication related. Has provider been notified: No DS: Diagnosis Discharge Diagnosis (1) Twitching: Status: Acute DS: Summary Hospital Course Hospital Course: Chief Complaint: intermittent twiching , hyperreflexia 54 yo male with seizures, polycystic kidney ds, DM1, hypthyroidism, prolonged Qt, anxiety and depression, schizoaffective disorder, asthma, CKD who notes he has had no new med changes (as per ed documentation-[facility] was told he had med change with zonisamide but he denies it), patient is saying he is having twitching of his arms legs and face from 2-3 weeks , in ED patient also told that-he felt like he is going to fall, and he was also having facial twitches. He denies prior episode of twitching . When we saw the patient patient currently does not express twitching, question mild hyper reflexia but no clonus. Denies any confusion or any overt seizure. Patient denies any chest pain or shortness of breath or abdominal pain or fever or chills or nausea vomiting. Lab imaging reviewed: H&H stable around 11 Creatinine is around 3.2 near his baseline EKG sinus Kodi, qtc 431 ms . Patient received Ativan and Benadryl in the ED. admission was requested for post questionable twitching unclear etiology Hospital course: The patient was admitted for unusual twitching movements of unclear etiology. Neurology evaluated the patient and raised a possible concern for serotonin syndrome. Psychiatry was also consulted and deemed serotonin syndrome less likely but recommended discontinuing Prozac, which has now been stopped. The patient has not experienced any further twitching in nearly 24 hours While awaiting further evaluation, the patient elected to leave AMA (Against Medical Advice) and declined to wait for additional advice or instructions. The nurse advised the patient to stop taking Prozac and to follow up with his healthcare providers. I did not have sufficient time to advise him directly . Time Attestation Discharge Coordination Time (in mins): 30 Quality: Safe Use of Opioids Does Pt have an Active Cancer Diagnosis on the Problem List?: No Quality: Stroke Does the patient have a stroke diagnosis?: No Physical Exam Vital Signs: Vital Signs: Last Vital Signs Temp 97.8 F 07/20/24 08:00 Pulse 51 07/20/24 08:00 Resp 20 07/20/24 08:00 BP 136/71 07/20/24 08:00 Pulse Ox 100 07/20/24 08:00 O2 Del Method Room Air 07/20/24 11:47 BMI result Body Mass Index 29.4 DS: Data Data Completed and Pending Labs on day of discharge: Laboratory Results - last 24 hr 07/19/24 07/19/24 07/20/24 16:05 20:09 06:00 Sodium 143 Potassium 5.1 Chloride 114 H Carbon Dioxide 22 Anion Gap 12 BUN 66 H Creatinine 3.69 H Estim Creat Clear Calc 25.7 Estimated GFR 17 POC Glucose 94 123 H Random Glucose 102 Calcium 8.9 D 07/20/24 07/20/24 07:23 11:01 Sodium Potassium Chloride Carbon Dioxide Anion Gap BUN Creatinine Estim Creat Clear Calc Estimated GFR POC Glucose 101 118 H Random Glucose Calcium Discharge Plan Discharge Anticipated Discharge Date/Time: 07/20/24 12:18 Patient Disposition: Left Against Medical Advice Discharge Diagnosis: Twicthing Referrals: Zeb Ca MD [Primary Care Provider] - 1 Week Discharge Medications: Continued (DME) blood-glucose meter [OneTouch Ultra2 Meter] Kit See Rx Instructions .ROUTE .MEDSUPPLY Qty: 1 0RF Rx Instructions: As directed (DME) OneTouch Ultra Test Strip See Rx Instructions .ROUTE .MEDSUPPLY Qty: 100 5RF Rx Instructions: As directed once a day omega 3-xoi-dez-fish oil [Fish Oil] 1,200 (144-216) mg capsule 1 cap PO DAILY Qty: 90 3RF bisacodyl [Dulcolax (bisacodyl)] 5 mg tablet,delayed release (DR/EC) 10 mg PO BEDTIME 30 Days Qty: 60 1RF lisinopril 2.5 mg tablet 2.5 mg PO BID Qty: 180 0RF (DME) Dexcom G7 Sensor Device See Rx Instructions .Route Qty: 3 5RF Rx Instructions: As directed change every 10 days (DME) Dexcom G7 Feather Curling Machine Operator Misc See Rx Instructions .Route Qty: 1 3RF Rx Instructions: As directed rosuvastatin 5 mg tablet 5 mg PO DAILY Qty: 90 1RF tizanidine 4 mg tablet 4 mg PO Q8H PRN (Reason: muscle spasms) 30 Days Qty: 90 0RF albuterol sulfate 90 mcg/actuation HFA aerosol inhaler 2 puff inhalation Q4H PRN (Reason: wheezing) levothyroxine 125 mcg tablet 125 mcg PO DAILY@0600 omeprazole 20 mg capsule,delayed release(DR/EC) 20 mg PO DAILY@0630 polyethylene glycol 3350 [Miralax] 17 gram Powder In Packet 17 g PO DAILY PRN (Reason: Constipation) methocarbamol 750 mg tablet 750 mg PO Q8H PRN (Reason: low back pain) acetaminophen [Tylenol Extra Strength] 500 mg tablet 500 mg PO TID PRN (Reason: fever or pain) calcium polycarbophil [Fiber (calcium polycarbophil)] 625 mg tablet 625 mg PO BID fluticasone propionate [Flovent HFA] 220 mcg/actuation HFA aerosol inhaler 1 puff PO DAILY ergocalciferol (vitamin D2) 1,250 mcg (50,000 unit) capsule 1,250 mcg PO WE@0900 insulin glargine [Lantus Solostar U-100 Insulin] 100 unit/mL (3 mL) insulin pen 8 unit subcut DAILY lorazepam 0.5 mg tablet 0.5 mg PO TID PRN (Reason: Anxiety) lamotrigine 200 mg tablet 200 mg PO BID trazodone 50 mg tablet 50 mg PO BEDTIME PRN (Reason: Insomnia) zonisamide 100 mg capsule 100 mg PO QID Farxiga 10 mg tablet 10 mg PO DAILY aripiprazole 5 mg tablet 5 mg PO DAILY (DME) pen needle, diabetic 32 gauge x needle See Rx Instructions subcut .MEDSUPPLY Qty: 50 Rx Instructions: As directed olanzapine 5 mg tablet 5 mg PO BEDTIME melatonin 5 mg tablet 5 mg PO BEDTIME Lokelma 10 gram powder in packet 10 g PO MOWEFR@0900 sodium bicarbonate 650 mg tablet 650 mg PO QID gabapentin 300 mg capsule 300 mg PO BID 90 Days Qty: 180 3RF Discontinued fluoxetine 40 mg capsule 40 mg PO DAILY Discharge Orders: Discharge Order (Routine); Ordered 07/20/24 Ordered By: Cody Rodriguez Diet: Advance to usual diet Activity on Discharge: As tolerated Print Language: Portuguese Care Plan Goals: Left AMA Health Concerns: Left AMA Plan of Treatment: Left AMA Assessment: Left AMA
--- NOTE | 2024-07-20 13:10 | MHC.CM.PN ---
PT DISCHARGED AMA
== END 2024-07-20 12:27 | disposition left against medical advice (07) ==
LOC: HO.ED 12:32 → HO.EDOVER 15:52 → HO.IMC 17:41
PROVIDERS: Admitting Provider Internal Medicine; Emergency Provider Emergency Medicine; PCP Internal Medicine; Visit Provider Internal Medicine
DX: R25.3 Fasciculation (principal); E10.22 Type 1 diabetes mellitus with diabetic chronic kidney disease; I12.9 Hypertensive chronic kidney disease with stage 1 through stage 4 chronic kidney disease, or unspecified chronic kidney disease; N18.4 Chronic kidney disease, stage 4 (severe); G40.909 Epilepsy, unspecified, not intractable, without status epilepticus; R94.31 Abnormal electrocardiogram [ECG] [EKG]; J45.20 Mild intermittent asthma, uncomplicated; E03.9 Hypothyroidism, unspecified; F25.9 Schizoaffective disorder, unspecified; Z79.4 Long term (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; Z79.899 Other long term (current) drug therapy
CPT/HCPCS: 36415; 80048; 80076; 82947; 83735; 84443; 85025; 93005; 94640; 96361; 96372; 96374; 99222; 99285; J1644; J2060; J7120

== ENCOUNTER → 2024-07-18 11:49 | Outpatient (BNV) | payer OTHER, SELFPAY | PROVIDERS: Admitting Provider Internal Medicine; Emergency Provider Emergency Medicine; PCP Internal Medicine; Visit Provider Internal Medicine | DX: R00.1 Bradycardia, unspecified (principal) | CPT/HCPCS: 93010 ==

== ENCOUNTER → 2024-07-18 12:03 | Outpatient (BNV) | payer OTHER, SELFPAY | PROVIDERS: Emergency Provider Emergency Medicine; PCP Internal Medicine; Visit Provider Internal Medicine | DX: R25.3 Fasciculation (principal) | CPT/HCPCS: 99222; 99231; 99239 ==

== ENCOUNTER → 2024-07-18 14:51 | Outpatient (BNV) | payer OTHER, SELFPAY | PROVIDERS: Admitting Provider Internal Medicine; Emergency Provider Emergency Medicine; PCP Internal Medicine; Visit Provider Social Worker | DX: F41.9 Anxiety disorder, unspecified (principal); R25.3 Fasciculation | CPT/HCPCS: 99232 ==

== ENCOUNTER → 2024-07-18 14:51 | Outpatient (BNV) | payer OTHER, SELFPAY | PROVIDERS: Admitting Provider Internal Medicine; Emergency Provider Emergency Medicine; PCP Internal Medicine; Visit Provider Psychiatry & Neurology Neurology | DX: R25.3 Fasciculation (principal) | CPT/HCPCS: 99222 ==

== ENCOUNTER 2024-09-01 08:12 | Outpatient (AMB) | payer OTHER, SELFPAY ==
[2024-09-01 08:49] VITALS: BP 130/82; PULSE 92; BMI 30.3
--- NOTE | 2024-09-01 08:49 | MHC.OFFVIS ---
Vital Signs 09/01/24 08:49 Height 5 ft 9 in Weight 205 lb 7.533 oz BMI 30.3 BP 130/82 Pulse 92 Pulse Source Pulse Oximeter Intake Visit Reasons: T2DM Intake Note: Patient present today for Type 2 Diabetes Mellitus Last Diabetic eye exam: 2023 Last Podiatry Visit: Has appt 09/02/24 Random Glucose: 90 mg/dl HgA1C: 5.5% Runstitching Machine Operator Required: No Accompanied by: Self / Same As Patient Allergies atorvastatin Adverse Reaction (Intermediate, Verified 09/01/24 08:55) elevated LFTs HPI Comments Details: Patient is a 54 yo male with diabetes with recent testing consistent with type 1 diabetes Past medical history: HTN, Vit D deficiency, bipolar disorder and schizophrenia, Chronic kidney disease stage 4, PCKD Diagnosed at age 22 Micro and macrovascular complications: + nephropathy, + neuropathy, Diabetes medications: Lantus 8 units, Farxiga 10 mg QD Blood glucose monitoring : Dexcom.POC A1C 5.5% today, 5.3% 04/2024. Denies hypoglycemia Symptoms reported: Numbness, tingling bilateral feet. Tried gabapentin but caused tremulousness Hypoglycemia: Denies, Hyperglycemia: denies polyuria, denies nocturia, Exercise: walking 90 minutes daily Eye exam: reports UTD- reports no dm retinopathy, cararct ROS CONSTITUTIONAL: Denies weight loss, fever and chills. HEENT: Denies changes in vision and hearing. RESPIRATORY: Denies SOB and cough. CV: Denies palpitations and CP GI: Denies abdominal pain, nausea, vomiting and diarrhea. : Denies dysuria and urinary frequency. MSK: Denies new myalgia and joint pain. SKIN: Denies rash and pruritus. NEUROLOGICAL: Denies headache PSYCHIATRIC: Denies recent changes in mood. PHYSICAL EXAM: GENERAL: Alert and oriented x 3. NAD EYES: EOMI. Anicteric. HENT: Moist mucous membranes. No scleral icterus. No cervical lymphadenopathy. LUNGS: Clear to auscultation bilaterally. CARDIOVASCULAR: Regular rate and rhythm. No murmur. No JVD. ABDOMEN: Soft, non-tender +bs EXTREMITIES: No edema. Non-tender. SKIN: No rashes or lesions. Warm. NEUROLOGIC: No focal neurological deficits. PSYCHIATRIC: Cooperative. Appropriate mood and affect [facility] Medical History Polycystic kidney disease Lumbar spondylosis Degenerative joint disease of thoracic spine Overweight (BMI 25.0-29.9) Chronic kidney disease, stage 4 (severe) Prolonged QT interval Hyperkalemia Memory impairment Vitamin D deficiency Hypothyroidism Seizures Anxiety Fatty liver IBS (irritable colon syndrome) GERD (gastroesophageal reflux disease) Obesity (BMI 30-39.9) Schizoaffective disorder Asthma Epilepsy Essential hypertension Pure hypercholesterolemia shelter (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 Type 2 diabetes mellitus with diabetic chronic kidney disease Surgical History History of surgery on lower extremity History of dental surgery H/O colonoscopy Family History Father No problems noted. 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 Cognitive needs: No Hearing needs: No Vision needs: Yes (glasses) Physical Exam Vital Signs: Last Vital Signs Pulse 92 09/01/24 08:49 BP 130/82 09/01/24 08:49 BMI result Body Mass Index 30.3 Results AMB Hemoglobin A1c AMB Hemoglobin A1c 5.5 % Last Edit by GABE Sullivan on 09/01/24 09:46 Results Reviewed Results Reviewed: Laboratory Last Values Glucose (Clinic) 90 mg/dL (60-115) 09/01/24 08:58 Hgb A1c (Clinic) 5.5 % (4.0-6.0) 09/01/24 09:45 Assessment & Plan Assessment & Plan (1) Type 1 diabetes: Code(s): E10.9 - Type 1 diabetes mellitus without complications Category: Medical Qualifiers: Diabetes mellitus complication status: with neurologic complications Diabetes mellitus complication detail: with polyneuropathy Qualified Code(s): E10.42 - Type 1 diabetes mellitus with diabetic polyneuropathy Plan: Wants to see glucose off lantus. He will restart if having hyperglycemia and make the office aware. continue farxiga Orders: Orders AMB Hemoglobin A1c Today E10.9 - Type 1 diabetes mellitus without complications, Z13.9 - Encounter for screening, unspecified Medications: Discontinued gabapentin Discontinued Reason: Doctor's Order 300 mg PO BID 90 days 180 caps 3RF Coding Level of Care Code Est Pt Level 4 (64748) Diagnoses Type 1 diabetes mellitus with diabetic polyneuropathy E10.42 Diabetes mellitus complication status: with neurologic complications Diabetes mellitus complication detail: with polyneuropathy
[2024-09-01 09:02] LABS: Glucose, Whole Blood 90 mg/dL (60-115)
== END 2024-09-01 09:30 | disposition home or self-care (01) ==
PROVIDERS: PCP Internal Medicine; Visit Provider Internal Medicine
DX: Z13.9 Encounter for screening, unspecified (principal); E10.9 Type 1 diabetes mellitus without complications; E10.42 Type 1 diabetes mellitus with diabetic polyneuropathy

== ENCOUNTER → 2024-09-01 08:12 | Outpatient (BNVA) | payer OTHER, SELFPAY | PROVIDERS: PCP Internal Medicine; Visit Provider Internal Medicine | DX: E10.42 Type 1 diabetes mellitus with diabetic polyneuropathy (principal) | CPT/HCPCS: 82947; 83036; 99212 ==

== ENCOUNTER 2024-09-06 08:41 | Outpatient (REF) | payer OTHER, SELFPAY ==
[2024-09-06 08:54] LABS: MANUAL DIFF FLAG NO
--- OUTSIDE RECORDS SUMMARY | 2024-09-06 09:02 | XMS_ITS | Encounter Summary ---
Author Organization [facility] Address [address] [address] Phone Care Team Providers Care Bad Cloth Checker Name Role Phone Zeb Ca MD Primary Care Provider +1- [phone] Encounter Details Date Type Department Care Team (Late Contact Info) Description 06/16/2024 Office Communication [facility] [address] [address] Nelson Knowles MD [address] [address] Social History Tobacco Use Types Packs/Day Years Used Date Smoking Tobacco: Former Cigarettes Q uit: 08/04/2014 Alcohol Use Standard Drinks/Week Comments No 0 (1 standard drink = 0.6 oz pur e alcohol) Sex and Gender Information Value Date Recorded Sex Assigned at Not on file Legal Sex Male 5:06 PM EST Gender Identity Not on file Sexual Orientation Not on file documented as of this encounter Plan of Treatment Upcoming Encounters Date Type Department Care Team (Late Contact Info) Description 09/06/2024 1:30 PM EST Office Visit [facility] [address] [place] [address] Nelson Knowles MD [address] [address] documented as of this encounter Visit Diagnoses Not on filedocumented in this encounter Care Teams Bad Cloth Checker Relationship Specialty Start Date End Date Zeb Ca MD [address] [place] [id number] PCP - General Internal Medicine 09/21/21 documented as of this encounter
--- OUTSIDE RECORDS SUMMARY | 2024-09-06 09:02 | XMS_ITS | Clinical Summary ---
Author Organization [facility] Address [address] [place] [address] Phone Care Team Providers Care Mechanical Design Engineer Name Role Phone Zeb Ca MD Primary Care Provider +1- [phone] Allergies No known active allergies Medications zonisamide (ZONEGRAN) 100 MG capsule Take 1 capsule by mouth in the morning and 1 capsule at noon and 1 capsule in the evening and 1 capsule before bedtime. Active traZODone (DESYREL) 50 MG tablet if needed Active tamsulosin (FLOMAX) 0.4 MG 24 hr capsule Take 1 capsule by mouth 1 (one) time each day Active Sennosides 8.6 MG capsule Take 1 capsule by mouth 1 (one) time each day Active omeprazole (PriLOSEC) [address] capsule Take 1 capsule by mouth 1 (one) time each day Active OLANZapine (ZyPREXA) 15 MG tablet Take 1 tablet by mouth 1 (one) time each day Active lisinopril 2.5 MG tablet Take 1 tablet by mouth 1 (one) time each day Active levothyroxine (SYNTHROID, LEVOTHROID) 125 MCG tablet Take 1 tablet by mouth 1 (one) time each day Active lamoTRIgine (LaMICtal) 150 MG tablet Take 1 tablet by mouth in the morning and 1 tablet in the evening. Active fluticasone (Flovent Diskus) 50 MCG/BLIST diskus inhaler Activ e ergocalciferol 1.25 MG (47560 UT) capsule Take 1 capsule by mouth 1 (one) time per week Active Calcium Polycarbophil (Fiber) 625 MG tablet Active clonazePAM (KlonoPIN) 1 MG tablet Take 1 tablet by mouth in the morning and 1 tablet in the evening and 1 tablet before bedtime. Active Multiple Vitamin (multivitamin) capsule Take 1 capsule by mouth 1 (one) time each day Active FLUoxetine (PROzac) 40 MG capsule Take 40 mg by mouth 1 (one) time each day Active sodium bicarbonate 650 MG tablet TAKE 1 TABLET BY MOUTH IN THE MORNING, 1 TAB AT NOON, 1 TAB IN EVENING, AND 1 TAB AT BEDTIME DAILY 360 tablet 4 Active Farxiga 10 MG tablet TAKE 1 TABLET BY MOUTH EVERY DAY 90 tablet 3 4 Active gabapentin (NEURONTIN) 300 MG capsule 300 mg in the morning and 300 mg in the evening. Take with meals. 4 Active Sodium Zirconium Cyclosilicate (Lokelma) 10 g pack Take 10 g by mouth 5 (five) times a week Take 10 mg by mouth 5 ( five) time a week 30 each 3 4 08/12/19 25 Active Problems Problem Noted Date Diagnosed Date Hyperkalemia 02/09/2024 Chronic kidney disease, stage 4 (severe) 022 Renal osteodystrophy 05/27/2022 Chronic kidney disease stage 3 11/29/2021 Essential hypertension 11/29/2021 Renal disorder due to type 2 diabetes mellitus 0 11/29/2021 Type 2 diabetes mellitus with peripheral angiopa thy 11/29/2021 Encounters Date Type Department Care Team Description 08/01/2024 [facility]ill [facility] [address] [address] Nelson Knowles MD 07/29/2024 [facility] [address] [place] [address] Nelson Knowles MD 06/19/2024 [facility]ill [facility] [address] [place] [address] Nelson Knowles MD 06/16/2024 Office Communication [facility] [address] [place] [address] [address] [place] [phone] Nelson Knowles MD from Last 3 Months Social History Tobacco Use Types Packs/Day Years Used Date Smoking Tobacco: Former Cigarettes Q uit: 08/04/2014 Tobacco Cessation:Counseling Given: Not Answered Alcohol Use Standard Drinks/Week Comments No 0 (1 standard drink = 0.6 oz pur e alcohol) Sex and Gender Information Value Date Recorded Sex Assigned at Not on file Legal Sex Male 5:06 PM EST Gender Identity Not on file Sexual Orientation Not on file Last Filed Vital Signs Vital Sign Reading Time Taken Comments Blood Pressure 110/65 02/09/2024 1:53 PM EDT Pulse 53 02/09/2024 1:53 PM EDT Temperature - - Respiratory Rate - - Oxygen Saturation 99% 02/09/2024 1:53 PM EDT Inhaled Oxygen Concentration - - Weight 84.6 kg (186 lb 9.6 oz) 02/09/2024 1:53 P M EDT Height - - Body Mass Index - - Plan of Treatment Upcoming Encounters Date Type Department Care Team (Late st Contact Info) Description 09/06/2024 1:30 PM EST Office Visit [facility] [address] [place] [address] Nelson Knowles MD [address] [facility] [address] [place] [phone] Health Maintenance Due Date Last Done Comments Pneumococcal Vaccine: Pediat rics (0 to 5 Years) and At-Risk Patients (6 to 64 Years) (1 of 2 - PCV) 1977 Hepatitis B Vaccine (1 of 3 - 19+ 3-dose series) 1990 Colorectal Cancer Screening: Annual FOBT 2020 Colorectal Cancer Screening: Colonoscopy 2020 Colorectal Cancer Screening: Sigmoidoscopy 2020 Diabetes: Ophthalmology Exam 09/04/2020 Diabetes: Pedal Pulse Checked 09/04/2020 Diabetes: Sensory Foot Exam 09/04/2020 Diabetes: Visual Foot Exam 09/04/2020 Influenza Vaccine (#1) 2024 Diabetes: Hemoglobin A1C 11/30/2024 025, 02/06/2024, 11/06/2023, Additional history exists Procedures Procedure Name Priority Date/Time Associated Diagnosis Comments ALT EXT LABS Routine 09/01/2024 CALCIUM Routine 06/16/2024 7:51 AM EST CREATININE, BLOOD Routine 06/16/2024 7:5 1 AM EST BUN Routine 06/16/2024 7:51 AM EST ELECTROLYTE PANEL Routine 06/16/2024 7:5 1 AM EST from Last 3 Months Results * ALT EXT LABS (09/01/2024) Hemoglobin A1C 5.5 4.0 - 6.0 09/01/2024 Rashid Duke MD LAB BLOOD ORDERABLES Lizbeth l Result * (ABNORMAL) Creatinine (06/16/2024 7:51 AM EST) Creatinine Serum 3.13(H) 0.5 - 1.4 mg/dL See order comments eGFR 21 See order comments Comment: Chronic Kidney Disease: ??Estimated GFR < 60 mL/min/1.73m2 Severe Kidney Disease: ??Estimated GFR < 15 mL/min/1.73m2 06/16/2024 7:51 AM EST 06/16/2024 7:51 AM EST Nelson Knowles MD LAB BLOOD ORDERABLES Final Re sult Performing Organization Address City/State/[facility] Co de Phone Number [place] See order comments [place] [address] * (ABNORMAL) BUN (06/16/2024 7:51 AM EST) BUN 65(H) 9 - 16 mg/dL See order comments 06/16/2024 7:51 AM EST 06/16/2024 7:51 AM EST Nelson Knowles MD LAB BLOOD ORDERABLES Final Re sult [place] See order comments [place] [address] * Calcium (06/16/2024 7:51 AM EST) Calcium 9.4 8.4 - 10.2 mg/dL See order comments 06/16/2024 7:51 AM EST 06/16/2024 7:51 AM EST Nelson Knowles MD LAB BLOOD ORDERABLES Final Re sult Performing Organization Address City/[facility] Co de Phone Number [place] See order comments [place] [address] * (ABNORMAL) Electrolyte panel (06/16/2024 7:51 AM EST) Sodium 141 135 - 145 mmol/L See order comments Potassium 5.5(H) 3.3 - 5.1 mmol/L See order comments Chloride 110(H) 96 - 108 mmol/L See order comments Bicarbonate (CO2) 23 22 - 29 mmol/L See order comments Anion Gap 14 12 - 20 See order comments 06/16/2024 7:51 AM EST 06/16/2024 7:51 AM EST Nelson Knowles MD LAB BLOOD ORDERABLES Final Re sult Performing Organization Address [facility] Co de Phone Number [place] See order comments [place] [address] from Last 3 Months Insurance [facility] ([id number]) [place] [id number] [facility] ([id number]) [place] [id number] Care Teams Mechanical Design Engineer Relationship Specialty Start Date End Date Zeb Ca MD [address] [place], [place] [phone] PCP - General Internal Medicine 09/21/21
--- OUTSIDE RECORDS SUMMARY | 2024-09-06 09:02 | XMS_ITS | Clinical Summary ---
Author Organization [facility] Address 175 [place] [address] Phone Care Team Providers Care Market Gardener Name Role Phone Zeb Ca MD Primary Care Provider + [phone] Allergies No known active allergies Medications Medication Sig Dispensed Refills Start Date End Date Status albuterol HFA (PROAIR HFA ; PROVENTIL HFA ; VENTOLIN HFA) 90 mcg/actuation inhaler Inhale 2 puffs by mouth every 6 (six) hours if needed for wheezing. Active acetaminophen (TYLENOL) 500 mg tablet Take 1 tablet (500 mg total) by mouth every 6 (six) hours if needed for mild pain. Active lamoTRIgine (LaMICtal XR) 200 mg tablet extended release 24hr 24 hr tablet Take 1 tablet (200 mg total) by mouth 1 (one) time each day. Active insulin glargine (LANTUS) 100 unit/mL injection Inject 100 Units under the skin at bedtime. Active fluticasone HFA (FLOVENT HFA) 220 mcg/actuation inhaler Inhale 1 puff by mouth 2 (two) times a day. Rinse mouth with water after use to reduce aftertaste and incidence of candidiasis. Do not swallow. Active FLUoxetine (PROzac) 40 mg capsule Take 1 capsule (40 mg total) by mouth 1 (one) time each day. Active dapagliflozin propanediol (FARXIGA) 10 mg tablet Take 1 tablet (10 mg total) by mouth 1 (one) time each day. Active polycarbophil (FIBERCON) 625 mg tablet Take 1 tablet (625 mg total) by mouth 1 (one) time each day. Active atorvastatin (LIPITOR) 10 mg tablet Take 1 tablet (10 mg total) by mouth at bedtime. Active ARIPiprazole (ABILIFY) 5 mg tablet Take 1 tablet (5 mg total) by mouth 1 (one) time each day. Active levothyroxine (SYNTHROID, LEVOTHROID) 125 mcg tablet Take 1 tablet (125 mcg total) by mouth 1 (one) time each day before breakfast. Active lisinopriL (PRINIVIL,ZESTRIL) 2.5 mg tablet Take 1 tablet (2.5 mg total) by mouth 1 (one) time each day. Active LORazepam (ATIVAN) 0.5 mg tablet Take 1 tablet (0.5 mg total) by mouth every 6 (six) hours if needed for anxiety. Max Daily Amount: 2 mg Active melatonin 3 mg tablet Take 1 tablet (3 mg total) by mouth. Active methocarbamoL (ROBAXIN) 750 mg tablet Take 1 tablet (750 mg total) by mouth 4 (four) times a day. Active morphine (MSIR) 15 mg tablet Take 1 tablet (15 mg total) by mouth. Active OLANZapine (ZyPREXA ZYDIS) 5 mg disintegrating tablet Dissolve 1 tablet (5 mg total) on top of the tongue at bedtime. Active sildenafiL (VIAGRA) 50 mg tablet Take 1 tablet (50 mg total) by mouth 1 (one) time each day if needed for erectile dysfunction. Active zonisamide (ZONEGRAN) 100 mg capsule Take 1 capsule (100 mg total) by mouth 1 (one) time each day. Active Active Problems Problem Noted Date Diagnosed Date Type 2 diabetes mellitus with hyperglycemia 01/2024 Polycystic kidney disease 06/09/2024 GERD (gastroesophageal reflux disease) IBS (irritable bowel syndrome) 06/09/2024 Fatty liver 06/09/2024 Prolonged QT interval 06/09/2024 Encounters Date Type Department Care Team Description 06/09/2024 3:15 PM EST Office Visit Orthopedic Surgery - [address] [address] Michael Mercedes, DPM Tendonitis, Achilles, left (Primary Dx); Diabetic mononeuropathy simplex (CMS/HCC); Dermatophytosis of nail; Corns and callosities; Pain in toe of right foot; Pain in toe of left foot; Metatarsalgia of both feet from Last 3 Months Social History Tobacco Use Types Packs/Day Years Used Date Smoking Tobacco: Never Assessed Sex and Gender Information Value Date Recorded Sex Assigned at Not on file Gender Identity Not on file Sexual Orientation Not on file Job Start Date Occupation Industry Not on file Not on file Not on file Last Filed Vital Signs Vital Sign Reading Time Taken Comments Blood Pressure - - Pulse - - Temperature - - Respiratory Rate - - Oxygen Saturation - - Inhaled Oxygen Concentration - - Weight 85.1 kg (187 lb 9.6 oz) 06/09/2024 3:10 P M EST Height 175.3 cm (5' 9 ) 06/09/2024 3:10 PM EST Body Mass Index 27.7 06/09/2024 3:10 PM EST Plan of Treatment Upcoming Encounters Date Type Department Care Team ([facility] st Contact Info) Description 09/08/2024 10:15 AM EST Office Visit Orthopedic Surgery - [place] [address] [phone] Michael Mercedes, DPM [address] [address] Health Maintenance Due Date Last Done Comments Diabetes: Annual GFR (Glomer ular Filtration Rate) 1971 Pneumococcal Vaccine: Pediat rics (0 to 5 Years) and At-Risk Patients (6 to 64 Years) (1 of 2 - PCV) 1977 Diabetes: Annual Foot Exam 1981 Diabetes: Annual Retina Eye Exam 1981 DTaP,Tdap,and Td Vaccines (1 - Tdap) 1990 Hepatitis B Vaccines (1 of 3 - 19+ 3-dose series) 1990 Zoster Vaccines (1 of 2) 2021 Cholesterol Screening (Lipid Panel) 03/05/2024 Colorectal Cancer Screening: Colonoscopy 03/05/2024 Depression Screening 03/05/2024 HIV Screening 03/05/2024 Hepatitis C Screening 03/05/2024 Medicare Annual Wellness Visit 03/05/2024 Social Influencers of Health Screening 03/05/2024 COVID-19 Vaccine (1 - 2023-2 5 season) 2024 Influenza Vaccine (#1) 2024 Diabetes: Annual Urine Albumin-Creatinine Ratio (uACR) 06/09/2024 Diabetes: Blood Sugar Contro l Test (HGBA1C) 06/09/2024 Hypertension/CHF/CAD Annual BMP Blood Test 06/09/2024 HIB Vaccines Aged Out No longer eligi ble based on patient's age to complete this topic HPV Vaccines Aged Out No longer eligi ble based on patient's age to complete this topic Hepatitis A Vaccines Aged Out No long er eligible based on patient's age to complete this topic IPV Vaccines Aged Out No longer eligi ble based on patient's age to complete this topic MMR Vaccines Aged Out No longer eligi ble based on patient's age to complete this topic Meningococcal ACWY Vaccine Aged Out N o longer eligible based on patient's age to complete this topic RSV Immunization Patients Un luz 20 months Aged Out No longer eligible b ased on patient's age to complete this topic Varicella Vaccines Aged Out No longer eligible based on patient's age to complete this topic Care Teams Market Gardener Relationship Specialty Start Date End Date Zeb Ca MD [address] [place] [address] Dr [address] [place] PCP - General Internal Medicine 05/07/24
[2024-09-06 09:41] LABS: Basophils Percent Auto 0.4 % (0-2); Eosinophils Absolute Auto 0.1 X10*3/uL (0.0-0.4); Eosinophils Percent Auto 1.4 % (0-4); Hematocrit 35.7 % (42.0-52.0); Hemoglobin 11.7 g/dl (14.0-18.0); Imm Gran Abs Auto 0.03 X10*3/uL (0.00-0.03); Imm Gran Pct Auto 0.4 % (0.0-0.4); Lymphocytes Absolute Auto 1.5 X10*3/uL (1.2-4.9); Lymphocytes Percent Auto 21.2 % (20-40); Mean Corpuscular HGB Conc 32.8 g/dl (31.0-36.0); Mean Corpuscular Hemoglobin 29.9 pg (27.0-33.0); Mean Corpuscular Volume 91.3 fL (80.0-98.0); Mean Platelet Volume 9.1 fL (9.4-12.4); Monocytes Absolute Auto 0.5 X10*3/uL (0.1-1.2); Monocytes Percent Auto 6.9 % (2-11); Neutrophils Absolute Auto 4.9 x10*3/uL (2.0-8.3); Neutrophils Percent Auto 69.7 % (45-73); Platelet Count 203 X10*3/uL (160-400); Red Blood Count 3.91 X10*6/uL (4.60-5.80); Red Cell Distribution Width 13.2 % (11.0-16.0)
[2024-09-06 10:57] LABS: Anion Gap 12 (12-20); Blood Urea Nitrogen 46 mg/dL (9-16); Calcium 8.7 mg/dL (8.4-10.2); Carbon Dioxide 20 mmol/L (22-29); Chloride 109 mmol/L (96-108); Estimated Glomerular Filt Rate 23; Potassium 4.5 mmol/L (3.3-5.1); Sodium 136 mmol/L (135-145)
== END 2024-09-06 08:42 | disposition home or self-care (01) ==
LOC: HO.LAB 08:41
PROVIDERS: PCP Internal Medicine; Visit Provider Internal Medicine Nephrology
DX: N18.4 Chronic kidney disease, stage 4 (severe) (principal)
CPT/HCPCS: 36415; 80051; 82310; 82565; 84520; 85025

== ENCOUNTER 2024-09-13 07:23 | Emergency (ER) | payer OTHER, SELFPAY ==
--- NOTE | 2024-09-13 | ECG_ITS ---
Test Reason : accidental od Blood Pressure : */* mmHG Vent. Rate : 67 BPM Atrial Rate : 67 BPM P-R Int : 186 ms QRS Dur : 100 ms QT Int : 426 ms P-R-T Axes : 27 -33 49 degrees QTcB Int : 450 ms Normal sinus rhythm Left axis deviation Abnormal ECG When compared with ECG of 18-Jul-2024 12:43, No significant change was found Referred By: Generic ED Physician Electronically Signed By: CHEYENNE ACOSTA MD
--- NOTE | ~2024-09-13 | CT_ITS ---
EXAMINATION: CT HEAD WITHOUT IV CONTRAST HISTORY: headache, anti-coag use. TECHNIQUE: Unenhanced helical CT of the head was performed per standard departmental protocol. Coronal and sagittal reformats of the head were also evaluated. One or more of the following techniques was used for dose reduction: Automated exposure control, adjustment of the mA and/or kV according to patient size, use of iterative reconstruction technique. DLP: 653 mGy-cm COMPARISON: Comparison is made with the prior examination dated 07/31/2020. Correlation is also made with MRI of the brain dated 12/24/2021. 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 There is artifact in the right cerebellum. Pinon/white differentiation is normal. There is no mass effect or midline shift. The ventricular system is normal in size and configuration. No intra- or extra-axial fluid collections are identified. SINUSES: The visualized paranasal sinuses are clear. The mastoid air cells and middle ear cavities are well pneumatized. ORBITS: The visualized orbits are unremarkable. BONES/SOFT TISSUES: The extracranial soft tissues are unremarkable. The calvarium is intact. No suspicious lytic or sclerotic lesions. CT/CT head/brain wo IV con IMPRESSION: No acute intracranial abnormality. Electronically signed by: Emiliano Melgar MD 09/13/2024 11:00 AM [facility] [place]
[2024-09-13 07:55] VITALS: BP 142/82; PULSE 76; O2SAT 99
[2024-09-13 07:59] VITALS: BP 134/82; PULSE 72; RESP 18; TEMP 37; O2SAT 97; BMI 28.9
--- OUTSIDE RECORDS SUMMARY | 2024-09-13 08:22 | XMS_ITS | Clinical Summary ---
Author Organization 175 [facility] Address 175 [place] [address] Phone Care Team Providers Care Crystalizer Name Role Phone Zeb Ca MD Primary Care Provider + [phone] Allergies No known active allergies Medications albuterol HFA (PROAIR HFA ; PROVENTIL HFA [...] 6 (six) hours if needed for anxiety. Active melatonin 3 mg tablet Take 1 [...] Encounters Date Type Department Care Team Description 09/08/2024 10:15 AM EST Office Visit Orthopedic Surgery - [address] [phone] Michael Mercedes, DPM Tendonitis, Achilles, left (Primary Dx); Follow-up exam; Diabetic mononeuropathy simplex (CMS/HCC); Dermatophytosis of nail; Corns and callosities; Pain in toe of right foot; Pain in toe of left foot; Metatarsalgia of both feet; Type II diabetes mellitus with peripheral circulatory disorder (CMS/HCC) from Last 3 Months Social History Tobacco Use Types Packs/Day Years Used Date Smoking Tobacco: Never Assessed Sex and Gender Information Value Date Recorded Sex Assigned at Not on file Legal Sex Male 11:07 AM EDT Gender Identity Not on file Sexual Orientation Not on file Last Filed Vital Signs Vital Sign Reading Time Taken Comments Blood Pressure - - Pulse - - Temperature - - Respiratory Rate - - Oxygen Saturation - - Inhaled Oxygen Concentration - - Weight 84.8 kg (187 lb) 09/08/2024 9:59 AM EST Height 175.3 cm (5' 9.02 ) 09/08/2024 9:59 AM ES T Body Mass Index 27.6 09/08/2024 9:59 AM EST Plan of Treatment Upcoming Encounters Date Type Department Care Team (Late st Contact Info) Description 09/29/2024 12:30 PM EST Evaluation [facility] [place] [address] [phone] Nicole Eubanks PT 12/06/2024 10:15 AM EDT Office Visit Orthopedic Surgery [facility] [address] [facility] [address] [place] [phone] Michael Mercedes, DPM [address] [facility] [address] [place] [address] Health Maintenance Due Date Last Done Comments Diabetes: Annual GFR (Glomerular Filtration Rate) 1971 Diabetes: Annual Foot Exam 1981 Diabetes: Annual Retina Eye Exam 1981 Hepatitis B Vaccines (1 of 3 - 19+ 3-dose series) 1990 Pneumococcal Vaccine: Pediatrics (0 to 5 Years) and At-Risk Patients (6 to 64 Years) (2 of 2 - PCV) 05/03/2020 05/03/2019, 02/01/2016 Zoster Vaccines (2 of 2) 07/29/2022 06/03/2022 DTaP,Tdap,and Td Vaccines (2 - Td or Tdap) 01/28/2023 01/28/2013 Cholesterol Screening (Lipid Panel) 03/05/2024 Colorectal Cancer Screening: Colonoscopy 03/05/2024 Depression Screening 03/05/2024 HIV Screening 03/05/2024 Hepatitis C Screening 03/05/2024 Medicare Annual Wellness Visit 03/05/2024 Social Influencers of Health Screening 03/05/2024 COVID-19 Vaccine ( season) 2024 05/12/2023, 06/03/2022, 06/19/2021, Additional history exists Influenza Vaccine (#1) 2024 , 04/30/2022, 09/18/2021, Additional history exists Diabetes: Annual Urine Albumin-Creatinine Ratio (uACR) 06/09/2024 Diabetes: Blood Sugar Control Test (HGBA1C) 06/09/2024 Hypertension/CHF/CAD Annual BMP Blood [...] to complete this topic RSV Immunization Patients Under 20 months Aged Out No longer eligible based on patient's age to complete this topic Varicella Vaccines Aged Out No longer eligible based on patient's age to complete this topic Insurance [facility] MEDICARE Member Subscriber Plan / Payer (Ef fective 2015-Present) Name:Shaheen Munoz Relation to Subscriber:Self Name:Shaheen Munoz Payer ID:[id number] Group ID:[id number] Type:Not on file Address: [place] [address] [place] [id number] Care Teams Crystalizer Relationship Specialty Start Date End Date Zeb Ca MD [address] [facility] [address] [place] PCP - General Internal Medicine 05/07/24
--- OUTSIDE RECORDS SUMMARY | 2024-09-13 08:22 | XMS_ITS | Encounter Summary ---
Author Organization [facility] Address [address] [address] Phone Care Team Providers Care Electrician Front Name Role Phone Zeb Ca MD Primary Care Provider +1- [phone] Encounter Details Date Type Department Care Team (Late Contact Info) Description 09/06/2024 Orders Only [facility] [address] [address] Nelson Knowles MD [address] [address] Social History Tobacco Use Types [...] Care Team (Late st Contact Info) Description 12/09/2024 4:15 PM EDT Office Visit [facility] [address] [place] [address] Nelson Knowles MD [address] [address] documented as of this encounter Procedures Procedure Name Priority Date/Time Associated Diagnosis Comments CREATININE, BLOOD Routine 09/06/2024 8:5 3 AM EST CBC AND DIFFERENTIAL Routine 09/06/2024 8:53 AM EST BUN Routine 09/06/2024 8:53 AM EST CALCIUM Routine 09/06/2024 8:53 AM EST ELECTROLYTE PANEL Routine 09/06/2024 8:5 3 AM EST documented in this encounter Results * Calcium (09/06/2024 8:53 AM EST) Calcium 8.7 8.4 - 10.2 mg/dL See order comments 09/06/2024 8:53 AM EST 09/06/2024 8:53 AM EST us Nelson Knowles MD LAB BLOOD ORDERABLES Final Re sult Performing Organization Address [facility] Co de Phone Number [place] See order comments [place] [address] * (ABNORMAL) Creatinine (09/06/2024 8:53 AM EST) Creatinine Serum 2.94(H) 0.5 - 1.4 mg/dL See order comments eGFR 23 See order comments Comment: Chronic Kidney Disease: ??Estimated GFR < 60 mL/min/1.73m2 Severe Kidney Disease: ??Estimated GFR < 15 mL/min/1.73m2 09/06/2024 8:53 AM EST 09/06/2024 8:53 AM EST us Nelson Knowles MD LAB BLOOD ORDERABLES Final Re sult Performing Organization Address [facility] Co de Phone Number [place] See order comments [place] [address] * (ABNORMAL) BUN (09/06/2024 8:53 AM EST) BUN 46(H) 9 - 16 mg/dL See order comments 09/06/2024 8:53 AM EST 09/06/2024 8:53 AM EST us Nelson Knowles MD LAB BLOOD ORDERABLES Final Re sult [place] See order comments [place] [address] * (ABNORMAL) Electrolyte panel (09/06/2024 8:53 AM EST) Sodium 136 135 - 145 mmol/L See order comments Potassium 4.5 3.3 - 5.1 mmol/L See order comments Chloride 109(H) 96 - 108 mmol/L See order comments Bicarbonate (CO2) 20(L) 22 - 29 mmol/L See order comments Anion Gap 12 12 - 20 See order comments 09/06/2024 8:53 AM EST 09/06/2024 8:53 AM EST Nelson Knowles MD LAB BLOOD ORDERABLES Final Re sult Performing Organization Address [facility] Co de Phone Number [place] See order comments [place] [address] * (ABNORMAL) CBC and Differential (09/06/2024 8:53 AM EST) WBC 7.0 4.8 - 10.8 X10*3/uL See order comments RBC 3.91(L) 4.60 - 5.80 X10*6/uL See order comments Hgb 11.7(L) 14.0 - 18.0 g/dl See order comments Hematocrit 35.7(L) 42.0 - 52.0 % See order comments MCV 91.3 80.0 - 98.0 fL See order comments MCH 29.9 27.0 - 33.0 pg See order comments MCHC 32.8 31.0 - 36.0 g/dl See order comments RDW 13.2 11.0 - 16.0 % See order comments Platelets 203 160 - 400 X10*3/uL See order comments MPV 9.1(L) 9.4 - 12.4 fL See order comments Neutrophils % Auto 69.7 45 - 73 % See order comments Immature Granulocytes 0.4 0.0 - 0.4 % See order comments Lymphocytes Relative 21.2 20 - 40 % See order comments Monocytes 6.9 2 - 11 % See order comments Eosinophils Relative 1.4 0 - 4 % See order comments Basophils Relative 0.4 0 - 2 % See order comments nRBC Count 0.0 0.0 - 0.2 /100WBC See order comments Neutrophils Absolute 4.9 2.0 - 8.3 x10*3/uL See order comments Immature Grans (Absolute) 0.03 0.00 - 0.03 X10*3/uL See order comments Lymphocytes Absolute 1.5 1.2 - 4.9 X10*3/uL See order comments Monocytes Absolute 0.5 0.1 - 1.2 X10*3/uL See order comments Eosinophils Absolute 0.1 0.0 - 0.4 X10*3/uL See order comments Basophils Absolute 0.0 0.0 - 0.2 X10*3/uL See order comments NRBC Absolute 0.000 0.0 - 0.012 X10*3/uL See order comments 09/06/2024 8:53 AM EST 09/06/2024 8:53 AM EST us Nelson Knowles MD LAB BLOOD ORDERABLES Final Re sult [place] See order comments [place] [address] documented in this encounter Visit Diagnoses Not on filedocumented in this encounter Care Teams Electrician Front Relationship Specialty Start Date End Date Zeb Ca MD [address] [place] [address] PCP - General Internal Medicine 09/21/21 documented as of this encounter
--- OUTSIDE RECORDS SUMMARY | 2024-09-13 08:22 | XMS_ITS | Encounter Summary ---
Author Organization [facility] Address [address] [address] Phone Care Team Providers Care School Examiner Name Role Phone Zeb Ca MD Primary Care Provider +1- [phone] Encounter Details Date Type Department Care Team (Late Contact Info) Description 06/16/2024 Office Communication [facility] [address] [address] Nelson Knowles MD [address] [address] Social History Tobacco Use Types [...] Department Care Team (Late Contact Info) Description 12/09/2024 4:15 PM EDT Office Visit [facility] [address] [place] [address] Nelson Knowles MD [address] [address] documented as of this encounter Visit Diagnoses Not on filedocumented in this encounter Care Teams School Examiner Relationship Specialty Start Date End Date Zeb Ca MD [address] [place] [id number] PCP - General Internal Medicine 09/21/21 documented as of this encounter
--- OUTSIDE RECORDS SUMMARY | 2024-09-13 08:22 | XMS_ITS | Encounter Summary ---
Author Organization [facility] Address [address] [place] [address] Care Team Providers Care Carpet Or Rug Layer Helper Name Role Phone Zeb Ca MD Primary Care Provider + [phone] Reason for Referral * Consultation (Routine) - Authorized Specialty Diagnoses / Procedures Referred By Tai pate Referred To Contact Physical Therapy Diagnoses Tendonitis, Achilles, left Michael Mercedes DPM [address] [address] Phone: tel: fax: Referral ID Status Reason Start Date Expiration Date Visits Requested Visits Authorized [id number] Authorized Specialty Services Required 09/08/2024 09/08/2025 20 20 Reason for Visit * Reason Comments Follow-up Diabetic foot exam Encounter Details Date Type Department Care Team (Late st Contact Info) Description 09/08/2024 10:15 AM EST Office Visit Orthopedic Surgery - [place] [address] [address] Michael Mercedes DPM [address] [address] Tendonitis, Achilles, left (Primary Dx); Follow-up exam; Diabetic mononeuropathy simplex (CMS/HCC); Dermatophytosis of nail; Corns and callosities; Pain in toe of right foot; Pain in toe of left foot; Metatarsalgia of both feet; Type II diabetes mellitus with peripheral circulatory disorder (CMS/HCC) Social History Tobacco Use Types Packs/Day Years Used Date Smoking Tobacco: Never Assessed Sex and Gender Information Value Date Recorded Sex Assigned at Not on file Legal Sex Male 11:07 AM EDT Gender Identity Not on file Sexual Orientation Not on file documented as of this encounter Last Filed Vital Signs Vital Sign Reading Time Taken Comments Blood Pressure - - Pulse - - Temperature - - Respiratory Rate - - Oxygen Saturation - - Inhaled Oxygen Concentration - - Weight 84.8 kg (187 lb) 09/08/2024 9:59 AM EST Height 175.3 cm (5' 9.02 ) 09/08/2024 9:59 AM ES T Body Mass Index 27.6 09/08/2024 9:59 AM EST documented in this encounter Progress Notes * Michael Mercedes DPM - 09/08/2024 10:15 AM EST Last PCP visit:Referring MD: 04/16/24 Dr Roby GUTIERREZ S Presents for multiple complaints his type II diabetic is worsening thickening skin of his balls of both feet right and left foot he is worried about ulcer formation has a very long painful thickened nails makes difficult for him to walk reports that he also has pain in the back of his left heels been coming and going since February states for about the last 6 months been throbbing achy pain that comes and goes he is heavily active with seat and walks regularly reports he is trying a wider shoe gearstates that he has a throbbing deep pain is a 2 or 3 out of 10 on a visual analog scale denies acute trauma to the area Patient says Achilles tendon continues to throb ache and painful he like to know what other treatment options are available to him for his left ankle pain ROS: GENERAL: Pt denies nausea, fever, vomiting, chills, or shortness of breath. Pt in NAD. CARDIOLOGY: pt denies chest pain, palpitations LUNGS: pt denies shortness of breath MUSCULOSKELETAL: See HPI, otherwise no joint pain or swelling, back pain, or muscle pain. SKIN: see HPI, otherwise no lesions, rash or itching NEURO: No persistent headache, weakness or numbness The remainder of the review of systems is noncontributory PAST MEDICAL HISTORY: Patient Active Problem List Diagnosis Type 2 diabetes mellitus with hyperglycemia (CMS/HCC) Polycystic kidney disease GERD (gastroesophageal reflux disease) IBS (irritable bowel syndrome) Fatty liver Prolonged QT interval SOCIAL HISTORY: Social History Tobacco Use Smoking status: Not on file Smokeless tobacco: Not on file Substance Use Topics Alcohol use: Not on file ACTIVE MEDICATIONS: Outpatient Medications Marked as Taking for the 09/08/24 encounter (Office Visit) with Michael Mercedes DPM Medication Sig Dispense Refill acetaminophen (TYLENOL) 500 mg tablet Take 1 tablet (500 mg total) by mouth every 6 (six) hours if needed for mild pain. albuterol HFA (PROAIR HFA ; PROVENTIL HFA ; VENTOLIN HFA) 90 mcg/actuation inhaler Inhale 2 puffs by mouth every 6 (six) hours if needed for wheezing. ARIPiprazole (ABILIFY) 5 mg tablet Take 1 tablet (5 mg total) by mouth 1 (one) time each day. atorvastatin (LIPITOR) 10 mg tablet Take 1 tablet (10 mg total) by mouth at bedtime. dapagliflozin propanediol (FARXIGA) 10 mg tablet Take 1 tablet (10 mg total) by mouth 1 (one) time each day. FLUoxetine (PROzac) 40 mg capsule Take 1 capsule (40 mg total) by mouth 1 (one) time each day. fluticasone HFA (FLOVENT HFA) 220 mcg/actuation inhaler Inhale 1 puff by mouth 2 (two) times a day.Rinse mouth with water after use to reduce aftertaste and incidence of candidiasis. Do not swallow. lamoTRIgine (LaMICtal XR) 200 mg tablet extended release 24hr 24 hr tablet Take 1 tablet (200 mg total) by mouth 1 (one) time each day. levothyroxine (SYNTHROID, LEVOTHROID) 125 mcg tablet Take 1 tablet (125 mcg total) by mouth 1 (one)time each day before breakfast. lisinopriL (PRINIVIL,ZESTRIL) 2.5 mg tablet Take 1 tablet (2.5 mg total) by mouth 1 (one) time eachday. LORazepam (ATIVAN) 0.5 mg tablet Take 1 tablet (0.5 mg total) by mouth every 6 (six) hours if needed for anxiety. melatonin 3 mg tablet Take 1 tablet (3 mg total) by mouth. methocarbamoL (ROBAXIN) 750 mg tablet Take 1 tablet (750 mg total) by mouth 4 (four) times a day. morphine (MSIR) 15 mg tablet Take 1 tablet (15 mg total) by mouth. OLANZapine (ZyPREXA ZYDIS) 5 mg disintegrating tablet Dissolve 1 tablet (5 mg total) on top of the tongue at bedtime. polycarbophil (FIBERCON) 625 mg tablet Take 1 tablet (625 mg total) by mouth 1 (one) time each day. sildenafiL (VIAGRA) 50 mg tablet Take 1 tablet (50 mg total) by mouth 1 (one) time each day if needed for erectile dysfunction. zonisamide (ZONEGRAN) 100 mg capsule Take 1 capsule (100 mg total) by mouth 1 (one) time each day. ALLERGIES: No Known Allergies PHYSICAL EXAM: Visit Vitals Ht 1.753 m (69.02 ) Wt 84.8 kg (187 lb) BMI 27.60 kg/m?? BSA 2.01 m?? PODIATRIC EXAMINATION: GENERAL: Patient appears well nourished, with NAD. VASCULAR: Dorsalis pedis pulses are 2/4 bilaterally and Posterior tibial pulses are 2/4 bilaterally. Capillary filling time within normal limits the digits. No pallor on elevation or rubor on dependency. Positive hair growth. No varicosities. Denies rest pain or claudication pain. NEUROLOGICAL: Sharp/dull sensation , protective sensation 9/10 with 5.07 semmes saad bilaterally, vibratory sensation with tuning fork intact to the tibial tuberosity. ORTHOPEDIC: Good muscle strength 5/5 of all flexors and extensors. Dorsi flexion of ankle ,10 degrees, plantar flexion WNL. No muscle atrophy. negative palpable fibromas Equinus with 5 degrees dorsiflexion with knee bent 0 degrees with knee extended positive service occult test No pain on palpation of the posterior tibial tendon, patient to perform single and double heel raise Positive pain on palpation of the Achilles tendon. Negative palpable deficits of the Achilles tendon Normal range of motion of the ankle joint and subtalar joint DERMATOLOGICAL:. Toenails: Left Toenail(s) 1-5: Crumbling upon debridement, subungual debris, discoloration, dystrophy, elongation, mycotic appearance, onychomycosis, pain and thickening. Right Toenail(s) 1-5: Crumbling upon debridement, subungual debris, discoloration, dystrophy, elongation, mycotic appearance, onychomycosis, pain and thickening. Annular scaling bilateral feet moccasin distribution Hyperkeratotic tissue subfirst metatarsal second metatarsal bilaterally BIOMECHANICS: STJ ROM wnl, MTJ ROM wnl, 1st MPJ ROM wnl. IMAGING: IMPRESSION: 1. Tendonitis, Achilles, left 2. Follow-up exam 3. Diabetic mononeuropathy simplex (CMS/HCC) 4. Dermatophytosis of nail 5. Corns and callosities 6. Pain in toe of right foot 7. Pain in toe of left foot 8. Metatarsalgia of both feet 9. Type II diabetes mellitus with peripheral circulatory disorder (CMS/HCC) PLAN: Pt was seen and examined, history reviewed. Referral placed to physical therapy encourage patient to go Revisited options unfortunately patient is not a good candidate for NSAIDs due to chronic kidney disease GERD he is also not a good candidate for steroids secondary to being diabetic although steroidoption including measure Dosepak were discussed which she declined Discussed with patient regarding proper glucose control, exercise, and diet. Explained to patient proper shoe gear, and importance of daily foot checks. I reviewed neuropathy and why it occurs in diabetics. I educated the patient on proper blood sugar control and the importance of an HgBA1c of less than 7.0%. I reviewed the signs and symptoms of neuropathy with the patient Prescription given for diabetic shoes and inserts Treatment options were discussed and reviewed including stretching exercises demonstrated for patient anti-inflammatory medications steroid injections orthotics and insoles Recommendations given for prefabricated insoles Follow-up in 4 to 6 weeks Debridement of mycotic toenails 6-10: Verbal informed consent was obtained from the patient. Greater than 6 nails were aseptically debrided in thickness and length with nail nippers Hyperkeratotic tissue debrided pared with a number #15 scalpel blade x2 Michael Mercedes DPM documented in this encounter Plan of Treatment Upcoming Encounters Date Type Department Care Team (Late st Contact Info) Description 09/29/2024 12:30 PM EST Evaluation [address] [address] Nicole Eubanks, PT 12/06/2024 10:15 AM EDT Office Visit Orthopedic Surgery - [place] [address] [phone] Michael Mercedes, DPM [address] [address] Scheduled Referrals Name Type Priority Associated Diagnoses Order Schedule Ambulatory referral to Physical Therapy and Athletic Training Outpatient Referral Routine Tendonitis, Achilles, left 1 Occurrences starting 09/08/2024 until 09/08/2025 documented as of this encounter Visit Diagnoses Diagnosis Tendonitis, Achilles, left- Primary Follow-up exam Unspecified follow-up examination Diabetic mononeuropathy simplex (CMS/HCC) Type II or unspecified type diabetes mellitus with neurological manifestations, not stated as uncontrolled Dermatophytosis of nail Corns and callosities Pain in toe of right foot Pain in soft tissues of limb Pain in toe of left foot Pain in soft tissues of limb Metatarsalgia of both feet Type II diabetes mellitus with peripheral circulatory disorder (CMS/HCC) Type II or unspecified type diabetes mellitus with peripheral circulatory disorders, not stated as uncontrolled documented in this encounter Orders Imaging Orders Without Results Count Last Order ed Date First Ordered Date XR FOOT 3+ VIEWS LEFT 1 09/08/2024 documented in this encounter Care Teams Carpet Or Rug Layer Helper Relationship Specialty Start Date End Date Zeb Ca MD [address] [place] [address] PCP - General Internal Medicine 05/07/24 documented as of this encounter
--- OUTSIDE RECORDS SUMMARY | 2024-09-13 08:22 | XMS_ITS | Clinical Summary ---
Author Organization [facility] Address [address] [place] [address] Phone Care Team Providers Care Treasury Consultant Name Role Phone Zeb Ca MD Primary Care Provider +1- [phone] Allergies No known active allergies Medications zonisamide [...] diskus inhaler Activ e ergocalciferol 1.25 MG (16292 UT) capsule Take 1 capsule by mouth [...] BY MOUTH EVERY DAY 90 tablet 3 Active gabapentin (NEURONTIN) 300 MG capsule 300 mg in the morning and 300 mg in the evening. Take with meals. 4 Active Active Problems Problem Noted Date Diagnosed Date Hyperkalemia 02/09/2024 Chronic kidney disease, stage 4 (severe) 022 Renal osteodystrophy 05/27/2022 Chronic kidney disease stage 3 11/29/2021 Essential hypertension 11/29/2021 Renal disorder due to type 2 diabetes mellitus 0 11/29/2021 Type 2 diabetes mellitus with peripheral angiopa thy 11/29/2021 Encounters Date Type Department Care Team Description 09/06/2024 Orders Only [facility] [address] [phone] Nelson Knowles MD 08/01/2024 [facility]ill [facility] [address] [address] Nelson Knowles MD 07/29/2024 Refill [facility] [address] [place] [address] Nelson Knowels MD 06/19/2024 Refill [facility] [address] [place] [address] Nelson Knowles MD 06/16/2024 Office Communication [facility] [address] [phone] Nelson Knowles MD from Last 3 Months [...] Visit [facility] the [address] [place] [address] Nelsno Knowles MD [address] [facility] [address] [place] [address] Health Maintenance Due Date Last Done Comments [...] Procedure Name Priority Date/Time Associated Diagnosis Comments CALCIUM Routine 09/06/2024 8:53 AM EST CREATININE, BLOOD Routine 09/06/2024 8:5 3 AM EST BUN Routine 09/06/2024 8:53 AM EST ELECTROLYTE PANEL Routine 09/06/2024 8:5 3 AM EST CBC AND DIFFERENTIAL Routine 09/06/2024 8:53 AM EST ALT EXT LABS Routine 09/01/2024 CALCIUM Routine 06/16/2024 7:51 AM EST CREATININE, BLOOD Routine 06/16/2024 7:5 1 AM EST BUN Routine 06/16/2024 7:51 AM EST ELECTROLYTE PANEL Routine 06/16/2024 7:5 1 AM EST from Last 3 Months Results * (ABNORMAL) Creatinine (09/06/2024 8:53 AM EST) Only the most recent of2 resultswithin the time period is included. Creatinine Serum 2.94(H) 0.5 - 1.4 mg/dL See order comments eGFR 23 See order comments Comment: Chronic Kidney Disease: ??Estimated GFR < 60 mL/min/1.73m2 Severe Kidney Disease: ??Estimated GFR < 15 mL/min/1.73m2 09/06/2024 8:53 AM EST 09/06/2024 8:53 AM EST us Nelson Knowles MD LAB BLOOD ORDERABLES Final Re sult [place] See order comments [place] [address] * (ABNORMAL) CBC and Differential (09/06/2024 8:53 [...] MD LAB BLOOD ORDERABLES Final Re sult [place] See order comments [place] [address] * (ABNORMAL) BUN (09/06/2024 8:53 AM EST) Only the most recent of2 resultswithin the time period is included. BUN 46(H) 9 - 16 mg/dL See order comments 09/06/2024 8:53 AM EST 09/06/2024 8:53 AM EST us Nelson Knowles MD LAB BLOOD ORDERABLES Final Re sult Performing Organization Address [facility] de Phone Number [place] See order comments [place] [address] * Calcium (09/06/2024 8:53 AM EST) Only the most recent of2 resultswithin the time period is included. Calcium 8.7 8.4 - 10.2 mg/dL See order comments 09/06/2024 8:53 AM EST 09/06/2024 8:53 AM EST us Nelson Knowles MD LAB BLOOD ORDERABLES Final Re sult Performing Organization Address [facility] Phone Number [place] See order comments [place] [address] * (ABNORMAL) Electrolyte panel (09/06/2024 8:53 AM EST) Only the most recent of2 resultswithin the time period is included. Sodium 136 135 - 145 mmol/L See [...] ORDERABLES Final Re sult Performing Organization Address [facility] Co de Phone Number [place] See order comments [place] [address] * ALT EXT LABS (09/01/2024) Hemoglobin A1C 5.5 4.0 - 6.0 09/01/2024 us Historical Provider LAB BLOOD ORDERABLES Lizbeth l Result from Last 3 Months Insurance [facility] ([id number]) [facility] ([id number]) Care Teams Treasury Consultant Relationship Specialty Start Date End Date Zeb Ca MD [address] [place] [address] PCP - General Internal Medicine 09/21/21
[2024-09-13 08:46] LABS: Hematocrit 36.9 % (42.0-52.0); Hemoglobin 12.1 g/dl (14.0-18.0); Mean Corpuscular HGB Conc 32.8 g/dl (31.0-36.0); Mean Corpuscular Hemoglobin 30.2 pg (27.0-33.0); Mean Platelet Volume 8.9 fL (9.4-12.4); Platelet Count 193 X10*3/uL (160-400); Red Blood Count 4.01 X10*6/uL (4.60-5.80); Red Cell Distribution Width 13.2 % (11.0-16.0); White Blood Count 7.8 X10*3/uL (4.8-10.8)
[2024-09-13 08:59] LABS: Alanine Aminotransferase 21 U/L (0-40); Albumin Level 4.5 g/dL (3.5-5.0); Alkaline Phosphatase 205 U/L (39-117); Anion Gap 14 (12-20); Aspartate Amino Transferase 25 U/L (5-37); Bilirubin Total 0.2 mg/dL (0.0-1.0); Blood Urea Nitrogen 51 mg/dL (9-16); Carbon Dioxide 18 mmol/L (22-29); Chloride 115 mmol/L (96-108); Estimated Glomerular Filt Rate 19; Glucose Random 116 mg/dL (60-115); Sodium 142 mmol/L (135-145); Total Protein 7.8 g/dL (6.5-8.0)
--- NOTE | 2024-09-13 09:12 | ED_ITS ---
HPI - General Adult General Chief complaint: Overdose Stated complaint: ACC TOOK EXTRA MUSCLE RELAXER,N/V,WEAK Time Seen by Provider: 09/13/24 09:11 Source: patient and EMS Mode of arrival: EMS Limitations: no limitations History of Present Illness ED Provider: Deanna Geller PA-C HPI narrative: Patient is a 54 year old assigned male at with a history of DM, polycystic kidney disease, CKD stage 4, asthma, and epilepsy presenting to the emergency department today with increased unsteadiness after accidentally taking an extra dose of his muscle relaxer. Patient states that he took his muscle relaxer as directed last night and then accidentally took an additional dose today and he felt more unsteady on his feet so he came into the hospital. Patient denies any dizziness, lightheadedness, abdominal pain, nausea, vomiting, fever, chills, blurry vision, double vision, loss of vision, chest pain, difficulty breathing, shortness of breath, back pain, night sweats, pain with urination, increased urinary frequency, increased urinary urgency, blood in his urine or stool, syncope or a near syncopal episode, recent trauma or falls, bowel incontinence, bladder incontinence, or any other complaints at this time. Relieving factors: none Exacerbating factors: none Associated symptoms: denies other symptoms Treatments prior to arrival: none Related Data Home Medications ?Medication ?Instructions ?Recorded ?Confirmed lamotrigine 200 mg tablet 200 mg PO BID 05/08/20 07/18/24 lorazepam 0.5 mg tablet 0.5 mg PO TID PRN Anxiety 05/08/20 07/18/24 trazodone 50 mg tablet 50 mg PO BEDTIME PRN Insomnia 05/08/20 07/18/24 pen needle, diabetic 32 gauge x #50 ea 07/25/20 03/02/2432 olanzapine 5 mg tablet 5 mg PO BEDTIME 08/16/21 07/18/24 aripiprazole 5 mg tablet 5 mg PO DAILY 12/03/21 07/18/24 dapagliflozin propanediol 10 mg 10 mg PO DAILY 07/30/22 07/18/24 tablet (Farxiga) fluoxetine 40 mg capsule 40 mg PO DAILY 12/18/23 07/18/24 melatonin 5 mg tablet 5 mg PO BEDTIME 12/18/23 07/18/24 zonisamide 100 mg capsule 100 mg PO QID 12/18/23 07/18/24 sodium zirconium cyclosilicate 10 10 g PO MOWEFR@0900 04/15/24 07/18/24 gram oral powder packet (Lokelma) sodium bicarbonate 650 mg tablet 650 mg PO QID 05/06/24 07/18/24 acetaminophen 500 mg tablet 500 mg PO TID PRN fever or pain 07/18/24 07/18/24 (Tylenol Extra Strength) ergocalciferol (vitamin D2) 1,250 1,250 mcg PO WE@0900 07/18/24 07/18/24 mcg (50,000 unit) capsule fluticasone propionate 220 1 puff PO DAILY 07/18/24 07/18/24 mcg/actuation HFA aerosol inhaler levothyroxine 125 mcg tablet 125 mcg PO DAILY@0600 07/18/24 07/18/24 methocarbamol 750 mg tablet 750 mg PO Q8H PRN low back pain 07/18/24 07/18/24 polyethylene glycol 3350 17 gram 17 g PO DAILY PRN Constipation 07/18/24 07/18/24 oral powder packet (Miralax) Previous Rx's ?Medication ?Instructions ?Recorded blood-glucose meter (Ometrics #1 ea 07/16/23 Ultra2 Meter kit) bisacodyl 5 mg tablet,delayed 10 mg (2 x 5 mg) PO BEDTIME 30 11/27/23 release (Dulcolax (bisacodyl)) days #60 tabs blood-glucose sensor (Dexcom G7 #3 ea 05/05/24 Sensor device) Dexcom G7 Senior International Tax Manager (blood-glucose #1 ea 05/10/24 meter,continuous) rosuvastatin 5 mg tablet 5 mg PO DAILY #90 tabs 05/28/24 tizanidine 4 mg tablet 4 mg PO Q8H PRN muscle spasms 30 06/23/24 days #90 tabs lisinopril 2.5 mg tablet 2.5 mg PO BID #180 tabs 08/01/24 calcium polycarbophil 625 mg 625 mg PO BID PRN for constipation 08/05/24 tablet (Fiber (calcium #60 tabs polycarbophil)) omeprazole 20 mg capsule,delayed 20 mg PO DAILY #90 caps 08/05/24 release albuterol sulfate 90 mcg/actuation 2 puff inhalation Q4H PRN wheezing 08/13/24 aerosol inhaler #8.5 grams blood sugar diagnostic (OneTouch #100 ea 08/15/24 Ultra Test strips) omega 5-uix-wpw-fish oil 1,200 mg 1 cap PO DAILY #90 caps 09/09/24 (144 mg-216 mg) capsule (Fish Oil) Allergies Allergy/AdvReac Type Severity Reaction Status Date / Time atorvastatin AdvReac Intermediate elevated Verified 09/13/24 08:03 LFTs Review of Systems 2 Constitutional: Constitutional: Reports no additional constitutional complaints, Denies chills, Denies fever(s) and Denies night sweats Eyes: Eyes: Reports no additional eye complaints, Denies blurry vision, Denies change in vision, Denies diplopia, Denies eye discharge, Denies loss of vision and Denies eye pain ENT: Denies dizziness Cardiovascular: Cardiovascular: Reports no additional cardiovascular complaints, Denies chest pain, Denies lightheadedness, Denies Loss of Consciousness and Denies dyspnea Respiratory: Respiratory: Reports no additional respiratory complaints and Denies dyspnea Gastrointestinal: Gastrointestinal: Reports no additional gastrointestinal complaints, Denies abdominal pain, Denies melena, Denies hematochezia, Denies change in bowel habits and Denies change in stool character Genitourinary: Genitourinary: Reports no additional male genitourinary complaints, Denies hematuria, Denies oliguria, Denies difficulty urinating, Denies dysuria, Denies urinary frequency, Denies urinary hesitancy, Denies urinary incontinence and Denies urinary urgency Musculoskeletal: Musculoskeletal: Reports no additional musculoskeletal complaints, Denies numbness and Denies tingling Neurologic: Denies dizziness, Denies loss of vision, Denies numbness and Denies tingling Psychiatric: Psychiatric: Reports no additional psychiatric complaints Endocrine: Endocrine: Reports no additional endocrine complaints Hematologic/Lymphatic: Hematologic/Lymphatic: Reports no additional hematologic/lymphatic complaints Allergic/Immunologic: Allergic/Immunologic: Reports no additional allergic/immunologic complaints PMFSH Past Medical History Attestation statement: The following information was validated with the patient. Source: old records reviewed and nursing notes reviewed Medical History Polycystic kidney disease Lumbar spondylosis Degenerative joint disease of thoracic spine Overweight (BMI 25.0-29.9) Chronic kidney disease, stage 4 (severe) Prolonged QT interval Hyperkalemia Memory impairment Vitamin D deficiency Hypothyroidism Seizures Anxiety Fatty liver IBS (irritable colon syndrome) GERD (gastroesophageal reflux disease) Obesity (BMI 30-39.9) Schizoaffective disorder Asthma Epilepsy Essential hypertension Pure hypercholesterolemia jail (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 Type 2 diabetes mellitus with diabetic chronic kidney disease Surgical History History of surgery on lower extremity History of dental surgery H/O colonoscopy Family History Family History Father No problems noted. 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 Cognitive needs: No Hearing needs: No Vision needs: Yes (glasses) Physical Exam ED Vital Signs: Vital Signs - 24 hr 09/13/24 07:59 09/13/24 12:09 Temperature 98.6 F 98.6 F Pulse Rate 72 72 Respiratory Rate 18 18 Blood Pressure 134/82 134/82 Pulse Oximetry 97 97 Oxygen Delivery Method Room Air Room Air BMI result Body Mass Index 28.9 Const General: cooperative, no acute distress, alert and awake Nutritional Appearance: well nourished Orientation/consciousness: patient oriented x3 Limitations: no limitations HENMT Head: Yes normal to inspection and Yes atraumatic Ears: hearing grossly normal bilaterally and external ears normal General nose exam: Normal external nose present, no nasal discharge noted and no epistaxis Face and sinus: Yes normal facial exam, No abrasion and No laceration Mouth: Normal oral and palatal mucosa present, no drooling and no muffled voice Eyes General: appearance normal, both eyes and all related structures Periorbital: periorbital findings normal Eyelids: Yes eyelids normal Conjunctivae: conjunctivae normal Pupils: Equal, round and reactive pupils present EOM: EOMs intact bilaterally Neck Neck: Yes normal visual inspection, Yes full ROM and Yes no lymphadenopathy Chest Chest palpation & inspection: normal inspection of the chest Resp Effort & Inspection: normal respiratory effort and able to speak in complete sentences GI Inspection: Yes normal to inspection Neuro General: patient oriented x3, moves all extremities and CN's II-XI intact bilaterally Cranial nerves: Yes Equal, round and reactive pupils present Cognition (Neuro): normal cognition Extrem General: Yes normal to inspection, Yes full ROM and Yes capillary refill normal Psych Appearance: grossly normal Mental Status: mental status grossly normal Affect: normal affect Attitude: cooperative Thought process: Normal thought process present Thought content: Normal thought content present Insight: Good insight present (Psych) Medications Administered Discontinued Medications Generic Name Dose Route Start Last Admin Trade Name Freq PRN Reason Stop Dose Admin Ondansetron HCl 4 mg 09/13/24 09:14 09/13/24 09:54 Ondansetron Odt 4 Mg Tab.Rapdis TRANSLINGU 09/13/24 09:15 4 mg ONCE ONE Administration Medical Decision Making Medical Decision Making [facility] Narrative: Patient is a 54 year old assigned male at with a history of DM, polycystic kidney disease, CKD stage 4, asthma, and epilepsy presenting to the emergency department today with increased unsteadiness after accidentally taking an extra dose of his muscle relaxer. Patient's physical exam was unremarkable. Patient's blood work was unremarkable and consistent with his baseline. Patient's EKG was unremarkable. Patient's head CT showed no acute process. Patient was able to ambulate per his baseline. I explained my physical exam findings as well as all test results to the patient. I answered all questions asked by the patient. I stressed the importance of the patient taking his medication as directed (either prescribed or as the over the counter packaging recommends). I stressed the importance of the patient following up with his primary care provider. I stressed the importance of the patient returning to the emergency department immediately if his symptoms were to worsen or if he were to develop any dizziness, shortness of breath, difficulty breathing, chest pain, blurry vision, loss of vision, nausea, vomiting, abdominal pain, fever, chills, back pain, or any other complaints. Patient verbalized agreement and understanding with this treatment plan and discharge. Differential Diagnosis Differential Diagnoses: The differential diagnosis associated with the presentation includes Accidental overdose Admission/Observation Consideration of admission/observation: Escalation of care including admission/observation considered Patient would have been admitted to the hospital had his work up had any findings where hospital admission was appropriate and his clinical presentation warranted hospital admission. Lab Data [facility] Lab Attestation statement: I reviewed the patient's lab results. My interpretation of these results are in the MDM Rationale portion of this note. 09/13/24 08:40 09/13/24 08:40 Labs: Lab Results 09/13/24 09/13/24 Range/Units 08:40 10:37 WBC 7.8 (4.8-10.8) X10*3/uL RBC 4.01 L (4.60-5.80) X10*6/uL Hgb 12.1 L (14.0-18.0) g/dl Hct 36.9 L (42.0-52.0) % MCV 92.0 (80.0-98.0) fL MCH 30.2 (27.0-33.0) pg MCHC 32.8 (31.0-36.0) g/dl RDW 13.2 (11.0-16.0) % Plt Count 193 (160-400) X10*3/uL MPV 8.9 L (9.4-12.4) fL Absolute Nucleated RBC 0.000 (0.0-0.012) X10*3/uL Nucleated RBC % (auto) 0.0 (0.0-0.2) /100WBC Sodium 142 (135-145) mmol/L Potassium 5.0 (3.3-5.1) mmol/L Chloride 115 H (96-108) mmol/L Carbon Dioxide 18 L (22-29) mmol/L Anion Gap 14 (12-20) BUN 51 H (9-16) mg/dL Creatinine 3.37 H (0.5-1.4) mg/dL Estim Creat Clear Calc 27.0 Estimated GFR 19 Random Glucose 116 H (60-115) mg/dL Calcium 9.0 (8.4-10.2) mg/dL Magnesium 2.7 H (1.6-2.6) mg/dL Total Bilirubin 0.2 (0.0-1.0) mg/dL AST 25 (5-37) U/L ALT 21 (0-40) U/L Alkaline Phosphatase 205 H (39-117) U/L Total Creatine Kinase 149 (38-174) U/L Total Protein 7.8 (6.5-8.0) g/dL Albumin 4.5 (3.5-5.0) g/dL Influenza Type A (PCR) NEGATIVE (Negative) Influenza Type B (PCR) NEGATIVE (Negative) RSV RNA Qual (PCR) NEGATIVE (Negative) SARS-CoV-2 RNA (RT-PCR) NEGATIVE (Negative) Independent Interpretation I performed an independent interpretation of an: EKG and CT Scan Interpretation: My interpretation is in agreement with the radiologist's impression of this imaging study. L Report Number: [id number]: Total DLP = 653.00 mGy-cm EXAMINATION: CT HEAD WITHOUT IV CONTRAST HISTORY: headache, anti-coag use. TECHNIQUE: Unenhanced helical CT of the head was performed per standard departmental protocol. Coronal and sagittal reformats of the head were also evaluated. One or more of the following techniques was used for dose reduction: Automated exposure control, adjustment of the mA and/or kV according to patient size, use of iterative reconstruction technique. DLP: 653 mGy-cm COMPARISON: Comparison is made with the prior examination dated 07/31/2020. Correlation is also made with MRI of the brain dated 12/24/2021. 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 There is artifact in the right cerebellum. Pinon/white differentiation is normal. There is no mass effect or midline shift. The ventricular system is normal in size and configuration. No intra- or extra- axial fluid collections are identified. SINUSES: The visualized paranasal sinuses are clear. The mastoid air cells and middle ear cavities are well pneumatized. ORBITS: The visualized orbits are unremarkable. BONES/SOFT TISSUES: The extracranial soft tissues are unremarkable. The calvarium is intact. No suspicious lytic or sclerotic lesions. CT/CT head/brain wo IV con IMPRESSION: No acute intracranial abnormality. Electronically signed by: Emiliano Melgar MD 09/13/2024 11:00 AM [facility] [place] Dictated By: Emiliano Melgar MD Signed By: Electronically signed by Emiliano Melgar MD 09/13/24 1100 Vent. Rate: 67 BPM Atrial Rate: 67 BPM P-R Int: 186 ms QRS Dur: 100 ms QT Int: 426 ms P-R-T Axes: 27 -33 49 degrees QTcB Int: 450 ms Normal sinus rhythm Left axis deviation When compared with ECG of 18-Jul-2024 12:43, No significant change was found Electronically Signed By: ALEC ACOSTA MD Dictated By: Alec Acosta MD Signed By: Electronically signed by Alec Acosta MD 09/13/24 1007 Radiology Impression Discussion of test interpretation with radiology: I have reviewed the radiologist's reading. Independent Historian Clinical information obtained from an independent historian. History obtained from or confirmed by: EMS (EMS provided additional history and confirmed the history provided by the patient.) Discharge Plan Discharge Clinical Impression: Accidental overdose Patient Disposition: Home, Self-Care Instructions: Adult Overdose (ED) Additional Instructions: Follow up with your primary care provider. Return to the emergency department immediately if your symptoms worsen or if you develop any dizziness, shortness of breath, difficulty breathing, chest pain, blurry vision, loss of vision, nausea, vomiting, abdominal pain, fever, chills, back pain, or any other complaints. Prescriptions: No Action (DME) blood-glucose meter [OneTouch Ultra2 Meter] Kit See Rx Instructions .ROUTE .MEDSUPPLY Qty: 1 0RF Rx Instructions: As directed bisacodyl [Dulcolax (bisacodyl)] 5 mg tablet,delayed release (DR/EC) 10 mg PO BEDTIME 30 Days Qty: 60 1RF (DME) Dexcom G7 Sensor Device See Rx Instructions .Route Qty: 3 5RF Rx Instructions: As directed change every 10 days (DME) Dexcom G7 Senior International Tax Manager Misc See Rx Instructions .Route Qty: 1 3RF Rx Instructions: As directed rosuvastatin 5 mg tablet 5 mg PO DAILY Qty: 90 1RF tizanidine 4 mg tablet 4 mg PO Q8H PRN (Reason: muscle spasms) 30 Days Qty: 90 0RF lisinopril 2.5 mg tablet 2.5 mg PO BID Qty: 180 0RF calcium polycarbophil [Fiber (calcium polycarbophil)] 625 mg tablet 625 mg PO BID PRN (Reason: for constipation) Qty: 60 6RF omeprazole 20 mg capsule,delayed release(DR/EC) 20 mg PO DAILY Qty: 90 2RF albuterol sulfate 90 mcg/actuation HFA aerosol inhaler 2 puff inhalation Q4H PRN (Reason: wheezing) Qty: 8.5 3RF (DME) OneTouch Ultra Test Strip See Rx Instructions .ROUTE .MEDSUPPLY Qty: 100 5RF Rx Instructions: As directed once a day omega 9-sza-beo-fish oil [Fish Oil] 1,200 (144-216) mg capsule 1 cap PO DAILY Qty: 90 3RF levothyroxine 125 mcg tablet 125 mcg PO DAILY@0600 polyethylene glycol 3350 [Miralax] 17 gram Powder In Packet 17 g PO DAILY PRN (Reason: Constipation) methocarbamol 750 mg tablet 750 mg PO Q8H PRN (Reason: low back pain) acetaminophen [Tylenol Extra Strength] 500 mg tablet 500 mg PO TID PRN (Reason: fever or pain) fluticasone propionate [Flovent HFA] 220 mcg/actuation HFA aerosol inhaler 1 puff PO DAILY ergocalciferol (vitamin D2) 1,250 mcg (50,000 unit) capsule 1,250 mcg PO WE@0900 lorazepam 0.5 mg tablet 0.5 mg PO TID PRN (Reason: Anxiety) lamotrigine 200 mg tablet 200 mg PO BID trazodone 50 mg tablet 50 mg PO BEDTIME PRN (Reason: Insomnia) zonisamide 100 mg capsule 100 mg PO QID Farxiga 10 mg tablet 10 mg PO DAILY aripiprazole 5 mg tablet 5 mg PO DAILY (DME) pen needle, diabetic 32 gauge x needle See Rx Instructions subcut .MEDSUPPLY Qty: 50 Rx Instructions: As directed olanzapine 5 mg tablet 5 mg PO BEDTIME melatonin 5 mg tablet 5 mg PO BEDTIME fluoxetine 40 mg capsule 40 mg PO DAILY Lokelma 10 gram powder in packet 10 g PO MOWEFR@0900 sodium bicarbonate 650 mg tablet 650 mg PO QID Referrals: Zeb Ca MD [Primary Care Provider] - Interventions: ED Discharge Assessment Last Done: 09/13/24 12:09 Discharge Date/Time: 09/13/24 12:09 Print Language: Zambian
[2024-09-13 09:32] LABS: Magnesium 2.7 mg/dL (1.6-2.6)
[2024-09-13] MEDS: Ondansetron ODT 4 MG TAB.RAPDIS TRANSLINGU (09:54)
[2024-09-13 11:20] LABS: Influenza A PCR NEGATIVE (Negative); Influenza B PCR NEGATIVE (Negative); Resp Syncy Virus RNA Qual PCR NEGATIVE (Negative); SARS COV2 PCR INHOUSE NEGATIVE (Negative)
[2024-09-13 12:09] VITALS: BP 134/82; PULSE 72; RESP 18; TEMP 37; O2SAT 97
== END 2024-09-13 12:09 | disposition home or self-care (01) ==
PROVIDERS: Emergency Medicine Emergency Medical Services; Physician Assistant Medical; Emergency Provider Emergency Medicine; PCP Internal Medicine
DX: T48.201A Poisoning by unspecified drugs acting on muscles, accidental (unintentional), initial encounter (principal); R26.81 Unsteadiness on feet; Y92.9 Unspecified place or not applicable; E11.22 Type 2 diabetes mellitus with diabetic chronic kidney disease; I12.9 Hypertensive chronic kidney disease with stage 1 through stage 4 chronic kidney disease, or unspecified chronic kidney disease; N18.4 Chronic kidney disease, stage 4 (severe); G40.909 Epilepsy, unspecified, not intractable, without status epilepticus; R51.9 Headache, unspecified; Z79.01 Long term (current) use of anticoagulants; Z79.899 Other long term (current) drug therapy; Z03.818 Encounter for observation for suspected exposure to other biological agents ruled out
CPT/HCPCS: 0241U; 36415; 70450; 80053; 82550; 83735; 85027; 93005; 99283; 99284

== ENCOUNTER → 2024-09-13 08:27 | Outpatient (BNV) | payer OTHER, SELFPAY | PROVIDERS: Emergency Provider Emergency Medicine; PCP Internal Medicine; Visit Provider Internal Medicine Cardiovascular Disease | DX: R94.31 Abnormal electrocardiogram [ECG] [EKG] (principal) | CPT/HCPCS: 93010 ==

== ENCOUNTER → 2024-09-13 09:17 | Outpatient (BNV) | payer OTHER, SELFPAY | PROVIDERS: Emergency Provider Emergency Medicine; PCP Internal Medicine; Visit Provider Radiology Diagnostic Radiology | DX: R51.9 Headache, unspecified (principal); Z79.01 Long term (current) use of anticoagulants | CPT/HCPCS: 70450 ==

== ENCOUNTER 2024-09-14 05:38 | Emergency (ER) | payer OTHER, SELFPAY ==
--- NOTE | ~2024-09-14 | CT_ITS ---
EXAMINATION: CT CERVICAL SPINE WITHOUT CONTRAST CLINICAL INFORMATION: Neck pain. COMPARISON: None available. TECHNIQUE: Axial 3 mm thin and reformatted 2 mm thin sagittal and coronal images of cervical spine were obtained without contrast. This CT examination was performed using dose optimization techniques as appropriate, variously including the following: *Automated exposure control *Adjustment of mA and/or kV according to patient size (this includes techniques or standardized protocols for targeted exams where dose is matched to indication/reason for exam; i.e. extremities or head) *Use of iterative reconstruction technique DLP: 1797 mGy/cm. FINDINGS: There is normal cervical lordosis. The vertebral heights, alignment and disc heights are normal. There is mild ventral spondylosis C3-4, C4-5 and C5-6 disc levels. Rest the disc heights are normal. The craniovertebral junction and the C1-C2 alignment is normal. There is no visible acute fracture, dislocation or subluxation seen. No visible disc bulge, herniation or spinal stenosis. The neural foramina patent bilaterally. The prevertebral and paravertebral soft tissues are normal. The airway is widely patent. The lung apices are clear except for minimal bilateral apical scarring. CT/CT cervical spine wo IV con IMPRESSION: No acute fracture or dislocation seen. Mild ventral spondylosis. Fleischner guidelines were followed. Electronically signed by: Bennett Smith MD 09/14/2024 10:09 AM SUNIL
--- NOTE | ~2024-09-14 | CT_ITS ---
EXAMINATION: CT ABDOMEN AND PELVIS WITHOUT CONTRAST CLINICAL INFORMATION: Upper abdominal pain COMPARISON: None available. TECHNIQUE: Multidetector volumetric imaging was performed from the superior aspect of the liver through the pubic symphysis. Sagittal and coronal reformatted images were obtained on the technologist's workstation. This CT examination was performed using dose optimization techniques as appropriate, variously including the following: *Automated exposure control *Adjustment of mA and/or kV according to patient size (this includes techniques or standardized protocols for targeted exams where dose is matched to indication/reason for exam; i.e. extremities or head) *Use of iterative reconstruction technique DLP: 1797 mGy/cm. FINDINGS: LUNG BASES: The visualized lung bases are unremarkable. LIVER, GALLBLADDER, AND BILIARY TREE: The liver is normal in size, shape, and attenuation. No focal hepatic lesion or biliary ductal dilatation is present. The gallbladder is unremarkable with no evidence of radiopaque gallstones, gallbladder wall thickening, or obvious pericholecystic inflammatory changes. PANCREAS: Unremarkable. SPLEEN: Unremarkable. ADRENAL GLANDS: Unremarkable. KIDNEYS AND URETERS: There is bilateral polycystic kidneys with most of the cyst being hypodense. There are a few scattered hypodense cysts in the left kidney with scattered calcifications as well. There is no hydronephrosis noted. BLADDER: The bladder is moderately distended and appears unremarkable. GASTROINTESTINAL TRACT: There is scattered stool and gas seen throughout the colon without distention. The small bowel loops are normal caliber. Appendix is normal caliber. There is no free air or free fluid. ABDOMINAL WALL: No significant hernia is appreciated. LYMPH NODES: Normal. VASCULAR: Unremarkable. PELVIC VISCERA: Unremarkable. OSSEOUS STRUCTURES: No aggressive lytic or sclerotic process seen. There is mild ventral spondylosis lower dorsal and mid lumbar spine. CT/CT abdomen pelvis wo IV con IMPRESSION: No acute intra-abdominal process seen. Polycystic kidney disease. Moderately distended urinary bladder. Mild constipation. Fleischner guidelines were followed. Electronically signed by: Bennett Smith MD 09/14/2024 09:57 AM EST
--- NOTE | ~2024-09-14 | MR_ITS ---
EXAMINATION: MR BRAIN WITHOUT IV CONTRAST HISTORY: ? cerebellar CVA unsteady gait TECHNIQUE: Sagittal T1, and axial T1, FLAIR, T2, gradient echo, and diffusion weighted MR images of the brain were obtained. COMPARISON: Comparison is made with the prior examination dated 12/24/2021. Correlation is also made with an unenhanced head CT performed earlier in the day. FINDINGS: There is mild motion artifact. Again seen is encephalomalacia in the right frontal lobe which may be due to prior infarct or trauma. Pinon/white differentiation is otherwise normal. There is no mass effect or midline shift. The ventricular system is normal in size and configuration. No intra or extra-axial fluid collections are identified. There are no foci of restricted diffusion. Normal vascular flow voids are noted in the basilar and carotid arteries. There is a polyp versus mucous retention cyst in the left maxillary sinus. MR/MR head/brain wo con IMPRESSION: No acute intracranial abnormality. No evidence of an acute infarct. Electronically signed by: Emiliano Melgar MD 09/14/2024 03:08 PM [facility]
--- NOTE | ~2024-09-14 | CT_ITS ---
EXAMINATION: CT HEAD WITHOUT CONTRAST CLINICAL INFORMATION: Headache. COMPARISON: None available. TECHNIQUE: Contiguous axial imaging was performed from the skull base to vertex without intravenous administration of contrast. This CT examination was performed using dose optimization techniques as appropriate, variously including the following: *Automated exposure control *Adjustment of mA and/or kV according to patient size (this includes techniques or standardized protocols for targeted exams where dose is matched to indication/reason for exam; i.e. extremities or head) *Use of iterative reconstruction technique DLP 1797 mGy/cm. FINDINGS: There is no acute intra-axial, extra-axial bleed, masses or midline shift. There is no acute infarction evolution. There is no edema. The garcia to white matter differentiation is maintained normal. The lateral ventricles are symmetrical in size and configuration without enlargement. Bone windows reveal no calvarial abnormality. There is no scalp soft tissue abnormality. Bilateral paranasal sinuses and mastoid air cells are well-aerated. Small polyp or retention cysts left maxillary sinus. CT/CT head/brain wo IV con IMPRESSION: No acute intracranial process seen. Electronically signed by: Bennett Smith MD 09/14/2024 10:03 AM [facility]
[2024-09-14 05:43] VITALS: BP 138/98; PULSE 98; O2SAT 95
[2024-09-14 06:07] VITALS: BP 126/66; PULSE 61; RESP 16; TEMP 36.7; O2SAT 96; BMI 31.0
--- OUTSIDE RECORDS SUMMARY | 2024-09-14 06:22 | XMS_ITS | Encounter Summary ---
Author Organization [facility] Address [address] [place] [address] Care Team Providers Care Pipe Fitter Supervisor Maintenance Name Role Phone Zeb Ca MD Primary Care Provider + [phone] Reason for Referral * Consultation (Routine) - Authorized Specialty Diagnoses / Procedures Referred By Tai pate Referred To Contact Physical Therapy Diagnoses Tendonitis, Achilles, left Michael Mercedes DPM [address] [address] Phone: tel: fax: Referral ID Status Reason Start Date Expiration Date Visits Requested Visits Authorized [id number] Authorized Specialty Services Required 09/08/2024 09/08/2025 20 20 Reason for Visit * Reason Comments Follow-up Diabetic foot exam Encounter Details Date Type Department Care Team (Late st Contact Info) Description 09/08/2024 10:15 AM EST Office Visit Orthopedic Surgery - [place] [id number] [phone] Michael Mercedes DPM [address] [address] Tendonitis, Achilles, left (Primary Dx); Follow-up exam; [...] Info) Description 09/29/2024 12:30 PM EST Evaluation [address] [phone] Nicole Eubanks, PT 12/06/2024 10:15 AM EDT Office Visit Orthopedic Surgery - [place] [address] [phone] Michael Mercedes, DPM [address] [address] Scheduled Referrals Name Type Priority Associated Diagnoses [...] 09/08/2024 documented in this encounter Care Teams Pipe Fitter Supervisor Maintenance Relationship Specialty Start Date End Date Zeb Ca MD [address] [place] [address] PCP - General Internal Medicine 05/07/24 documented as of this encounter
--- OUTSIDE RECORDS SUMMARY | 2024-09-14 06:22 | XMS_ITS | Clinical Summary ---
Author Organization [facility] Address [address] [place] [address] Phone Care Team Providers Care Head Mixer Name Role Phone Zeb Ca MD Primary Care Provider [phone]- [phone] Allergies No known active allergies Medications zonisamide [...] diskus inhaler Activ e ergocalciferol 1.25 MG (81497 UT) capsule Take 1 capsule by mouth [...] Orders Only [facility] [address] [phone] Nelson Knowles MD 08/01/2024 Refill [facility] [address] [address] Nelson Knowles MD 07/29/2024 Refill [facility] [address] [place] [address] Nelson Knowles MD 06/19/2024 Refill [facility] [address] [place] [address] Nelson Knowles MD 06/16/2024 Office Communication [facility] [address] [phone] Nelson Knowles MD from Last 3 Months [...] Visit [facility] [address] [place] [address] Nelson Knowles MD [address] [facility] [address] [place] [address] Health Maintenance Due Date Last Done Comments [...] order comments [place] [address] * (ABNORMAL) CBC and Differential (09/06/2024 8:53 [...] order comments [place] [address] * (ABNORMAL) BUN (09/06/2024 8:53 AM EST) Only the most recent of2 resultswithin the time period is included. BUN 46(H) 9 - 16 mg/dL See order comments 09/06/2024 8:53 AM EST 09/06/2024 8:53 AM EST us Nelson Knowles MD LAB BLOOD ORDERABLES Final Re sult Performing Organization Address [facility] de Phone Number [place] See order comments [place] [address] * Calcium (09/06/2024 8:53 AM EST) Only the most recent of2 resultswithin the time period is included. Calcium 8.7 8.4 - 10.2 mg/dL See order comments 09/06/2024 8:53 AM EST 09/06/2024 8:53 AM EST us Nelson Knowles MD LAB BLOOD ORDERABLES Final Re sult Performing Organization Address [facility] Phone Number [place] See order comments [place] [address] * (ABNORMAL) Electrolyte panel (09/06/2024 8:53 AM [...] ORDERABLES Final Re sult Performing Organization Address [facility] Co de Phone Number [place] See order comments [place] [address] * ALT EXT LABS (09/01/2024) Hemoglobin A1C 5.5 4.0 - 6.0 09/01/2024 us Historical Provider LAB BLOOD ORDERABLES Lizbeth l Result from Last 3 Months Insurance [facility] ([id number]) [facility] ([id number]) Care Teams Head Mixer Relationship Specialty Start Date End Date Zeb Ca MD [address] [place] [address] PCP - General Internal Medicine 09/21/21
--- OUTSIDE RECORDS SUMMARY | 2024-09-14 06:22 | XMS_ITS | Encounter Summary ---
Author Organization [facility] Address [address] [address] Phone Care Team Providers Care Laborer Brush Clearing Name Role Phone Zeb Ca MD Primary Care Provider [phone] Encounter Details Date Type Department Care Team (Late Contact Info) Description 09/06/2024 Orders Only [facility] [address] [address] Nelson Knowles MD [address] [address] Social History Tobacco Use Types [...] Office Visit [facility] [address] [place] [address] Nelson Knowles MD [address] [address] documented as of this encounter [...] ORDERABLES Final Re sult Performing Organization Address [facility] Co de Phone Number [place] See order comments [place] [address] * (ABNORMAL) Creatinine (09/06/2024 8:53 AM EST) Creatinine Serum 2.94(H) 0.5 - 1.4 mg/dL See order comments eGFR 23 See order comments Comment: Chronic Kidney Disease: ??Estimated GFR < 60 mL/min/1.73m2 Severe Kidney Disease: ??Estimated GFR < 15 mL/min/1.73m2 09/06/2024 8:53 AM EST 09/06/2024 8:53 AM EST us Nelson Knowles MD LAB BLOOD ORDERABLES Final Re sult Performing Organization Address [facility] Co de Phone Number [place] See order comments [place] [address] * (ABNORMAL) BUN (09/06/2024 8:53 AM EST) BUN 46(H) 9 - 16 mg/dL See order comments 09/06/2024 8:53 AM EST 09/06/2024 8:53 AM EST us Nelson Knowles MD LAB BLOOD ORDERABLES Final Re sult [place] See order comments [place] [address] * (ABNORMAL) Electrolyte panel (09/06/2024 8:53 AM [...] ORDERABLES Final Re sult Performing Organization Address [facility] Co de Phone Number [place] See order comments [place] [address] * (ABNORMAL) CBC and Differential (09/06/2024 8:53 [...] MD LAB BLOOD ORDERABLES Final Re sult [place] See order comments [place] [address] documented in this encounter Visit Diagnoses Not on filedocumented in this encounter Care Teams Laborer Brush Clearing Relationship Specialty Start Date End Date Zeb Ca MD [address] [place] [address] PCP - General Internal Medicine 09/21/21 documented as of this encounter
--- OUTSIDE RECORDS SUMMARY | 2024-09-14 06:22 | XMS_ITS | Clinical Summary ---
Author Organization [address] [facility] Address [address] [place] [address] Phone Care Team Providers Care Supervisor Transferring And Boxing Name Role Phone Zeb Ca MD Primary Care Provider + [phone] Allergies No known active allergies Medications albuterol [...] AM EST Office Visit Orthopedic Surgery - [address] [phone] Michael Mercedes, DPM Tendonitis, Achilles, left (Primary [...] Info) Description 09/29/2024 12:30 PM EST Evaluation [facility] [place] [address] [phone] Nicole Eubanks PT 12/06/2024 10:15 AM EDT Office Visit Orthopedic Surgery [facility] [address] [facility] [address] [place] [phone] Michael Mercedes, DPM [address] [facility] [address] [place] [address] Health Maintenance Due Date Last Done Comments [...] patient's age to complete this topic Insurance [facility] [employer] MEDICARE Member Subscriber Plan / Payer (Ef fective 2015-Present) Name:Shaheen Munoz Relation to Subscriber:Self Name:Shaheen Munoz Payer ID:[id number] Group ID:[id number] Type:Not on file Address: [place] [address] [address] [address] Care Teams Supervisor Transferring And Boxing Relationship Specialty Start Date End Date Zeb Ca MD [address] [place] PCP - General Internal Medicine 05/07/24
[2024-09-14] MEDS: 0.9 % Sodium Chloride 1,000 ML 999 ML IVCONT ×2 (07:50→07:58)
--- NOTE | 2024-09-14 07:50 | ED_ITS ---
HPI - Nausea/Vomiting/Diarrhea General Chief complaint: Nausea/Vomiting/Diarrhea Stated complaint: WEAKNESS/VOMITTING Time Seen by Provider: 09/14/24 07:40 Source: patient Limitations: no limitations History of Present Illness HPI Narrative: This is a 54 years old the patient presented to the emergency department complaining of nausea vomiting generalized weakness dizziness. Patient has history of chronic kidney disease, he has a history of schizoaffective disorder seizure disorder. He was evaluated yesterday had blood work yesterday bicarb was 18. Denies any fever and chills MD elicited complaint: nausea and vomiting Onset (ago): day(s) (2) Description of vomiting: watery Description of diarrhea: watery Associated nausea: Yes Associated abdominal pain: Yes Location of pain: epigastric Radiation: periumbilical Pain consistency: intermittent Quality: cramping Exacerbating factors: none Relieving factors: none Associated symptoms: denies other symptoms Related Data Home Medications ?Medication ?Instructions ?Recorded ?Confirmed lamotrigine 200 mg tablet 200 mg PO BID 05/08/20 07/18/24 lorazepam 0.5 mg tablet 0.5 mg PO TID PRN Anxiety 05/08/20 07/18/24 trazodone 50 mg tablet 50 mg PO BEDTIME PRN Insomnia 05/08/20 07/18/24 pen needle, diabetic 32 gauge x #50 ea 07/25/20 03/02/24 olanzapine 5 mg tablet 5 mg PO BEDTIME 08/16/21 07/18/24 aripiprazole 5 mg tablet 5 mg PO DAILY 12/03/21 07/18/24 dapagliflozin propanediol 10 mg 10 mg PO DAILY 07/30/22 07/18/24 tablet (Farxiga) fluoxetine 40 mg capsule 40 mg PO DAILY 12/18/23 07/18/24 melatonin 5 mg tablet 5 mg PO BEDTIME 12/18/23 07/18/24 zonisamide 100 mg capsule 100 mg PO QID 12/18/23 07/18/24 sodium zirconium cyclosilicate 10 10 g PO MOWEFR@0900 04/15/24 07/18/24 gram oral powder packet (Lokelma) sodium bicarbonate 650 mg tablet 650 mg PO QID 05/06/24 07/18/24 acetaminophen 500 mg tablet 500 mg PO TID PRN fever or pain 07/18/24 07/18/24 (Tylenol Extra Strength) ergocalciferol (vitamin D2) 1,250 1,250 mcg PO WE@0900 07/18/24 07/18/24 mcg (50,000 unit) capsule fluticasone propionate 220 1 puff PO DAILY 07/18/24 07/18/24 mcg/actuation HFA aerosol inhaler levothyroxine 125 mcg tablet 125 mcg PO DAILY@0600 07/18/24 07/18/24 methocarbamol 750 mg tablet 750 mg PO Q8H PRN low back pain 07/18/24 07/18/24 polyethylene glycol 3350 17 gram 17 g PO DAILY PRN Constipation 07/18/24 07/18/24 oral powder packet (Miralax) Previous Rx's ?Medication ?Instructions ?Recorded blood-glucose meter (BombfellTouch #1 ea 07/16/23 Ultra2 Meter kit) bisacodyl 5 mg tablet,delayed 10 mg (2 x 5 mg) PO BEDTIME 30 11/27/23 release (Dulcolax (bisacodyl)) days #60 tabs blood-glucose sensor (Dexcom G7 #3 ea 05/05/24 Sensor device) Dexcom G7 Strap Setter (blood-glucose #1 ea 05/10/24 meter,continuous) rosuvastatin 5 mg tablet 5 mg PO DAILY #90 tabs 05/28/24 tizanidine 4 mg tablet 4 mg PO Q8H PRN muscle spasms 30 06/23/24 days #90 tabs lisinopril 2.5 mg tablet 2.5 mg PO BID #180 tabs 08/01/24 calcium polycarbophil 625 mg 625 mg PO BID PRN for constipation 08/05/24 tablet (Fiber (calcium #60 tabs polycarbophil)) omeprazole 20 mg capsule,delayed 20 mg PO DAILY #90 caps 08/05/24 release albuterol sulfate 90 mcg/actuation 2 puff inhalation Q4H PRN wheezing 08/13/24 aerosol inhaler #8.5 grams blood sugar diagnostic (BombfellTouch #100 ea 08/15/24 Ultra Test strips) omega 3-uqo-qct-fish oil 1,200 mg 1 cap PO DAILY #90 caps 09/09/24 (144 mg-216 mg) capsule (Fish Oil) Allergies Allergy/AdvReac Type Severity Reaction Status Date / Time atorvastatin AdvReac Intermediate elevated Verified 09/14/24 06:08 LFTs Review of Systems 2 Eyes: Eyes: Reports no additional eye complaints Gastrointestinal: Gastrointestinal: Reports nausea Integumentary/Breasts: Skin/Breast: Reports system reviewed and no additional complaints, except as docu PMFSH Past Medical History Attestation statement: The following information was validated with the patient. Medical History Polycystic kidney disease Lumbar spondylosis Degenerative joint disease of thoracic spine Overweight (BMI 25.0-29.9) Chronic kidney disease, stage 4 (severe) Prolonged QT interval Hyperkalemia Memory impairment Vitamin D deficiency Hypothyroidism Seizures Anxiety Fatty liver IBS (irritable colon syndrome) GERD (gastroesophageal reflux disease) Obesity (BMI 30-39.9) Schizoaffective disorder Asthma Epilepsy Essential hypertension Pure hypercholesterolemia skilled nursing (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 Type 2 diabetes mellitus with diabetic chronic kidney disease Surgical History History of surgery on lower extremity History of dental surgery H/O colonoscopy Family History Family History Father No problems noted. 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 Cognitive needs: No Hearing needs: No Vision needs: Yes (glasses) Physical Exam 2 Vital Signs: Vital Signs: Last Vital Signs Temp 98.2 F 09/14/24 11:48 Pulse 71 09/14/24 11:48 Resp 15 09/14/24 11:48 BP 135/73 09/14/24 11:48 Pulse Ox 98 09/14/24 11:48 O2 Del Method Room Air 09/14/24 11:48 BMI result Body Mass Index 31.0 Patient is anxious appearing but not acute distress Const: General: cooperative Orientation/consciousness: patient oriented x3 HEENT: Head: Yes normal to inspection General nose exam: Normal external nose present Face and sinus: Yes normal facial exam Neck: Neck: Yes normal visual inspection and Yes full ROM Chest: Chest palpation & inspection: normal inspection of the chest Resp: Effort & Inspection: normal respiratory effort Auscultation: clear to auscultation bilaterally Cardio: Jugular venous distension: no JVD Rate: regular rate Rhythm: r egular rhythm GI: Inspection: Yes normal to inspection Palpation (GI): Soft to palpation, not firm, nontender and no guarding Percussion: Yes normal to percussion : General: Yes no CVA tenderness Back/Spine/Pelvis: Back: no CVA tenderness Skin: General skin exam: no rashes or lesions noted and elasticity normal L esions: no lesions Rashes: no rashes Neuro: General: patient oriented x3 Cranial nerves: Yes CN's II-XII intact bilaterally Cognition (Neuro): normal cognition Course Reevaluation(s) Reevaluation #2: MRI of the brain was negative CVA, I re-examined the patient at 15:46 he was able to ambulate without assistance in the emergency room he was able turn around. Review in the chart Dr Ca note of 04/30/22 listed in his note abnormal gait. At this point I think it we could discharge the patient home. Time: 15:49 Medications Administered Discontinued Medications Generic Name Dose Route Start Last Admin Trade Name Freq PRN Reason Stop Dose Admin Acetaminophen 975 mg 09/14/24 09:03 09/14/24 09:11 Acetaminophen 325 Mg Tablet PO 09/14/24 09:04 975 mg ONCE ONE Administration Sodium Chloride 1,000 mls @ 999 mls/hr 09/14/24 07:45 09/14/24 08:51 Ns IVCONT 09/14/24 08:45 Infused .Q1H1M ANKIT Infusion Sodium Chloride 1,000 mls @ 999 mls/hr 09/14/24 07:45 09/14/24 08:59 Ns IVCONT 09/14/24 08:45 Infused .Q1H1M ANKIT Infusion Ondansetron HCl 4 mg 09/14/24 07:43 09/14/24 07:58 Ondansetron Hcl 4 Mg/2 Ml Vial IVPUSH 09/14/24 07:44 4 mg ONCE ONE Administration Medical Decision Making Medical Decision Making [facility] Narrative: Patient presented any nausea vomiting we will check labs administer fluid he had metabolic acidosis yesterday with mild VALE Differential Diagnosis Differential Diagnoses: The differential diagnosis associated with the presentation includes Dehydration/viral syndrome Admission/Observation Consideration of admission/observation: Escalation of care including admission/observation considered Lab Data [facility] Lab Attestation statement: I reviewed the patient's lab results. 09/14/24 07:55 09/14/24 07:55 Labs: Lab Results 09/14/24 Range/Units 07:55 WBC 10.7 (4.8-10.8) X10*3/uL RBC 4.01 L (4.60-5.80) X10*6/uL Hgb 12.2 L (14.0-18.0) g/dl Hct 36.4 L (42.0-52.0) % MCV 90.8 (80.0-98.0) fL MCH 30.4 (27.0-33.0) pg MCHC 33.5 (31.0-36.0) g/dl RDW 13.3 (11.0-16.0) % Plt Count 189 (160-400) X10*3/uL MPV 8.9 L (9.4-12.4) fL Immature Gran % (Auto) 0.4 (0.0-0.4) % Neut % (Auto) 88.8 H (45-73) % Lymph % (Auto) 7.0 L (20-40) % [place] % (Auto) 3.4 (2-11) % Eos % (Auto) 0.2 (0-4) % Baso % (Auto) 0.2 (0-2) % Lymph # (Auto) 0.8 L (1.2-4.9) X10*3/uL [place] # (Auto) 0.4 (0.1-1.2) X10*3/uL Eos # (Auto) 0.0 (0.0-0.4) X10*3/uL Baso # (Auto) 0.0 (0.0-0.2) X10*3/uL Abs Immat Gran (auto) 0.04 H (0.00-0.03) X10*3/uL Absolute Neuts (auto) 9.6 H (2.0-8.3) x10*3/uL Absolute Nucleated RBC 0.000 (0.0-0.012) X10*3/uL Nucleated RBC % (auto) 0.0 (0.0-0.2) /100WBC Sodium 137 (135-145) mmol/L Potassium 5.3 H (3.3-5.1) mmol/L Chloride 112 H (96-108) mmol/L Carbon Dioxide 20 L (22-29) mmol/L Anion Gap 10 L (12-20) BUN 57 H (9-16) mg/dL Creatinine 3.39 H (0.5-1.4) mg/dL Estim Creat Clear Calc 28.7 Estimated GFR 19 Random Glucose 137 H (60-115) mg/dL Calcium 9.0 (8.4-10.2) mg/dL Total Bilirubin 0.3 (0.0-1.0) mg/dL AST 30 (5-37) U/L ALT 23 (0-40) U/L Alkaline Phosphatase 208 H (39-117) U/L Troponin I High Sens 3.9 (<3.5-35.0) ng/L Total Protein 7.7 (6.5-8.0) g/dL Albumin 4.5 (3.5-5.0) g/dL Lipase 40 (8-78) U/L Independent Interpretation I performed an independent interpretation of an: CT Scan Radiology Impression Discussion of test interpretation with radiology: I have reviewed the radiologist's reading. External Record Review External record reviewed: Inpatient record and Office record Chronic Conditions seizure/bipolar Discharge Plan Discharge Clinical Impression: Abnormal gait Vomiting Qualifiers: Vomiting type: unspecified Nausea presence: with nausea Qualified Code(s): R 11.2 - Nausea with vomiting, unspecified Patient Disposition: Home, Self-Care Instructions: Acute Nausea and Vomiting (ED) Additional Instructions: Follow-up with your primary care physician return to emergency room if you worse any concern Prescriptions: No Action (DME) blood-glucose meter [OneTouch Ultra2 Meter] Kit See Rx Instructions .ROUTE .MEDSUPPLY Qty: 1 0RF Rx Instructions: As directed bisacodyl [Dulcolax (bisacodyl)] 5 mg tablet,delayed release (DR/EC) 10 mg PO BEDTIME 30 Days Qty: 60 1RF (DME) Dexcom G7 Sensor Device See Rx Instructions .Route Qty: 3 5RF Rx Instructions: As directed change every 10 days (DME) Dexcom G7 Strap Setter Misc See Rx Instructions .Route Qty: 1 3RF Rx Instructions: As directed rosuvastatin 5 mg tablet 5 mg PO DAILY Qty: 90 1RF tizanidine 4 mg tablet 4 mg PO Q8H PRN (Reason: muscle spasms) 30 Days Qty: 90 0RF lisinopril 2.5 mg tablet 2.5 mg PO BID Qty: 180 0RF calcium polycarbophil [Fiber (calcium polycarbophil)] 625 mg tablet 625 mg PO BID PRN (Reason: for constipation) Qty: 60 6RF omeprazole 20 mg capsule,delayed release(DR/EC) 20 mg PO DAILY Qty: 90 2RF albuterol sulfate 90 mcg/actuation HFA aerosol inhaler 2 puff inhalation Q4H PRN (Reason: wheezing) Qty: 8.5 3RF (DME) OneTouch Ultra Test Strip See Rx Instructions .ROUTE .MEDSUPPLY Qty: 100 5RF Rx Instructions: As directed once a day omega 1-sqv-sxx-fish oil [Fish Oil] 1,200 (144-216) mg capsule 1 cap PO DAILY Qty: 90 3RF levothyroxine 125 mcg tablet 125 mcg PO DAILY@0600 polyethylene glycol 3350 [Miralax] 17 gram Powder In Packet 17 g PO DAILY PRN (Reason: Constipation) methocarbamol 750 mg tablet 750 mg PO Q8H PRN (Reason: low back pain) acetaminophen [Tylenol Extra Strength] 500 mg tablet 500 mg PO TID PRN (Reason: fever or pain) fluticasone propionate [Flovent HFA] 220 mcg/actuation HFA aerosol inhaler 1 puff PO DAILY ergocalciferol (vitamin D2) 1,250 mcg (50,000 unit) capsule 1,250 mcg PO WE@0900 lorazepam 0.5 mg tablet 0.5 mg PO TID PRN (Reason: Anxiety) lamotrigine 200 mg tablet 200 mg PO BID trazodone 50 mg tablet 50 mg PO BEDTIME PRN (Reason: Insomnia) zonisamide 100 mg capsule 100 mg PO QID Farxiga 10 mg tablet 10 mg PO DAILY aripiprazole 5 mg tablet 5 mg PO DAILY (DME) pen needle, diabetic 32 gauge x needle See Rx Instructions subcut .MEDSUPPLY Qty: 50 Rx Instructions: As directed olanzapine 5 mg tablet 5 mg PO BEDTIME melatonin 5 mg tablet 5 mg PO BEDTIME fluoxetine 40 mg capsule 40 mg PO DAILY Lokelma 10 gram powder in packet 10 g PO MOWEFR@0900 sodium bicarbonate 650 mg tablet 650 mg PO QID Print Language: Slovak
[2024-09-14] MEDS: ondansetron HCL 4 MG/2 ML VIAL IVPUSH (07:58)
[2024-09-14 08:01] LABS: MANUAL DIFF FLAG NO
[2024-09-14 08:04] LABS: Basophils Percent Auto 0.2 % (0-2); Eosinophils Percent Auto 0.2 % (0-4); Hematocrit 36.4 % (42.0-52.0); Hemoglobin 12.2 g/dl (14.0-18.0); Imm Gran Abs Auto 0.04 X10*3/uL (0.00-0.03); Imm Gran Pct Auto 0.4 % (0.0-0.4); Lymphocytes Absolute Auto 0.8 X10*3/uL (1.2-4.9); Mean Corpuscular HGB Conc 33.5 g/dl (31.0-36.0); Mean Corpuscular Hemoglobin 30.4 pg (27.0-33.0); Mean Corpuscular Volume 90.8 fL (80.0-98.0); Mean Platelet Volume 8.9 fL (9.4-12.4); Monocytes Absolute Auto 0.4 X10*3/uL (0.1-1.2); Monocytes Percent Auto 3.4 % (2-11); Neutrophils Absolute Auto 9.6 x10*3/uL (2.0-8.3); Neutrophils Percent Auto 88.8 % (45-73); Platelet Count 189 X10*3/uL (160-400); Red Blood Count 4.01 X10*6/uL (4.60-5.80); Red Cell Distribution Width 13.3 % (11.0-16.0); White Blood Count 10.7 X10*3/uL (4.8-10.8)
--- NOTE | 2024-09-14 08:13 | PC.NURSE ---
20gIV placed in the right AC - labs obtained/sent to lab. medication/IVF administered per provider order. effectiveness pending. pt waiting to go to CT at this time.
[2024-09-14 08:28] LABS: Alanine Aminotransferase 23 U/L (0-40); Albumin Level 4.5 g/dL (3.5-5.0); Alkaline Phosphatase 208 U/L (39-117); Anion Gap 10 (12-20); Aspartate Amino Transferase 30 U/L (5-37); Bilirubin Total 0.3 mg/dL (0.0-1.0); Blood Urea Nitrogen 57 mg/dL (9-16); Carbon Dioxide 20 mmol/L (22-29); Chloride 112 mmol/L (96-108); Creatinine Clr Calc Pharmacy 28.7; Estimated Glomerular Filt Rate 19; Glucose Random 137 mg/dL (60-115); Lipase 40 U/L (8-78); Potassium 5.3 mmol/L (3.3-5.1); Sodium 137 mmol/L (135-145); Total Protein 7.7 g/dL (6.5-8.0)
[2024-09-14 08:35] LABS: Troponin-I High Sensitivity 3.9 ng/L (<3.5-35.0)
--- NOTE | 2024-09-14 08:48 | PC.NURSE ---
pt to CT at this time.
[2024-09-14] MEDS: Acetaminophen 325 MG TABLET 975 MG PO (09:11)
--- NOTE | 2024-09-14 09:11 | PC.NURSE ---
pt c/o headache. neuros intact. pt medicated w/ one time dose of Tylenol per provider order. pt continues to wait for CT results at this time. plan of care ongoing.
[2024-09-14 11:48] VITALS: BP 135/73; PULSE 71; RESP 15; TEMP 36.8; O2SAT 98
--- NOTE | 2024-09-14 14:16 | PC.NURSE ---
pt to MRI at this time.
--- NOTE | 2024-09-14 15:32 | PC.NURSE ---
pt returned from MRI at this time. requesting to go to the bathroom. 1:1 assist needed as pt has an extremely unsteady gait. pt assisted back to bed. repositioned to comfort. pt now pending PT/CM evaluation. no sob/wob noted. respirations even/unlabored. plan of care ongoing.
[2024-09-14 16:09] VITALS: BP 116/74; PULSE 88; RESP 20; TEMP 36.9; O2SAT 97
[2024-09-14 16:23] VITALS: BP 116/74; PULSE 88; RESP 20; TEMP 36.9; O2SAT 97
--- NOTE | 2024-09-14 16:28 | PC.NURSE ---
pt returned from MRI/cleared by MD/pending PT/CM [place]. pt requesting food. provider aware/approved. provider had lunch tray verbalizing he feels much better. pt then able to ambulate independently w/o any use of assistive devices. requesting to leave. pt then up for discharge.
== END 2024-09-14 16:30 | disposition home or self-care (01) ==
PROVIDERS: Emergency Provider Emergency Medicine; PCP Internal Medicine
DX: R11.2 Nausea with vomiting, unspecified (principal); R26.81 Unsteadiness on feet; F25.9 Schizoaffective disorder, unspecified; M54.2 Cervicalgia; R51.9 Headache, unspecified; R10.13 Epigastric pain; Z87.891 Personal history of nicotine dependence; Z79.899 Other long term (current) drug therapy
CPT/HCPCS: 36415; 70450; 70551; 72125; 74176; 80053; 83690; 84484; 85025; 96361; 96374; 99284; 99285; J2405

== ENCOUNTER → 2024-09-14 07:55 | Outpatient (BNV) | payer OTHER, SELFPAY | PROVIDERS: Emergency Provider Emergency Medicine; Visit Provider Radiology Diagnostic Radiology | DX: Q61.2 Polycystic kidney, adult type (principal); R26.81 Unsteadiness on feet; M54.2 Cervicalgia; R51.9 Headache, unspecified | CPT/HCPCS: 70450; 70551; 72125; 74176 ==

== ENCOUNTER 2024-09-17 09:10 | Emergency (ER) | payer OTHER, SELFPAY ==
--- NOTE | ~2024-09-17 | CT_ITS ---
EXAMINATION: CT HEAD WITHOUT CONTRAST CLINICAL INFORMATION: Fall, head strike, pain COMPARISON: 09/14/2024 CT and MRI brain. TECHNIQUE: Contiguous axial imaging was performed from the skull base to vertex without intravenous administration of contrast. This CT examination was performed using dose optimization techniques as appropriate, variously including the following: *Automated exposure control *Adjustment of mA and/or kV according to patient size (this includes techniques or standardized protocols for targeted exams where dose is matched to indication/reason for exam; i.e. extremities or head) *Use of iterative reconstruction technique FINDINGS: There is no evidence of intracranial hemorrhage or extra-axial fluid collection. There is no mass effect, or edema. No CT evidence of acute territorial infarct. Ventricles, sulci, and cisterns are normal in size and configuration for patient age. No hydrocephalus. No midline shift. 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 Negative hyperdense MCA sign. Negative insular ribbon sign. Old lacunar type infarct left anterior thalamus. Otherwise, no significant white matter abnormality. Normal pituitary. Mild atheromatous calcification of the bilateral carotid siphons and V4 segments vertebral arteries bilaterally. Globes and orbital contents image normally. No extracranial soft tissue abnormalities. Tiny mucous retention cysts left maxillary antrum. The paranasal sinuses, mastoid air cells, and tympanic cavities are otherwise normally aerated. No suspicious bony abnormalities. There are no acute fractures evident. CT/CT head/brain wo IV con IMPRESSION: No acute intracranial abnormalities. No fractures evident. Mild chronic changes. Electronically signed by: Kolby Garcia MD 09/17/2024 10:45 AM [facility]
--- NOTE | ~2024-09-17 | CT_ITS ---
EXAMINATION: CT CERVICAL SPINE WITHOUT CONTRAST CLINICAL INFORMATION: Fall, head strike, neck pain. COMPARISON: 09/14/2024, and dating back to 01/30/2016. TECHNIQUE: Spiral CT imaging of the cervical spine performed in axial plane without contrast. Multiplanar reformatted images were constructed from the axial data set. This CT examination was performed using dose optimization techniques as appropriate, variously including the following: *Automated exposure control *Adjustment of mA and/or kV according to patient size (this includes techniques or standardized protocols for targeted exams where dose is matched to indication/reason for exam; i.e. extremities or head) *Use of iterative reconstruction technique FINDINGS: CORONAL ALIGNMENT: -Normal SAGITTAL ALIGNMENT: -Normal lordosis. No subluxations. C1-C2 AND CRANIOCERVICAL JUNCTION: -Intact and aligned normally. There are C1 due to degenerative changes. VERTEBRAL BODIES AND FACETS: -No fracture, traumatic subluxation, compression deformity, or suspicious bone lesion. -Lucent foci in C3 and C5, unchanged from 2016, consistent with vertebral hemangiomas. DISCS: -Mild to moderate diffuse loss of disc height. Mild disc osteophytic spurs ventrally at C5 and C6. PREVERTEBRAL AND PARAVERTEBRAL SOFT TISSUES: -Normal. No prevertebral abnormalities. -Thyroid is diminutive. -No masses or abnormal lymph nodes within the neck. LUNG APICES: -Mild paraseptal emphysematous change, with minimal biapical scarring. Otherwise clear. CT/CT cervical spine wo IV con IMPRESSION: 1. No CT evidence of acute cervical spine fracture or injury. Stable examination from priors. Electronically signed by: Kolby Garcia MD 09/17/2024 10:55 AM EST
--- NOTE | ~2024-09-17 | CT_ITS ---
EXAMINATION: CT THORACIC SPINE WITHOUT CONTRAST CLINICAL INFORMATION: [Fall, back pain. COMPARISON: None. Correlation made with CT abdomen and pelvis 09/14/2024. TECHNIQUE: Spiral CT examination thoracic spine was performed in axial plane without IV contrast. Multiplanar reformatted images were constructed from the axial data set. This CT examination was performed using dose optimization techniques as appropriate, variously including the following: *Automated exposure control *Adjustment of mA and/or kV according to patient size (this includes techniques or standardized protocols for targeted exams where dose is matched to indication/reason for exam; i.e. extremities or head) *Use of iterative reconstruction technique FINDINGS: Mild right convex scoliosis. Mildly exaggerated thoracic lordosis. No acute fracture, compression deformity, subluxation, or suspicious bone lesion. There is an old fracture of the right posterior seventh rib. The remaining ribs appear intact. Mild diffuse disc space narrowing present. There are bulky ventral fused and flowing disc osteophytes spanning T3-T12, with relative preservation of the disc spaces, findings in keeping with DISH. There is normal facet alignment. There are mild multilevel degenerative facet changes. Remainder the imaged osseous structures are intact without acute fracture. Paravertebral soft tissues are normal. There is mild cardiac enlargement. The aorta and mediastinal contents appear normal. There are no pleural effusions. The imaged lungs demonstrate mild paraseptal emphysematous changes, with moderate respiratory motion degradation. No discrete consolidation or suspicious opacity. No discrete nodule identified. Small type I hiatus hernia suspected The kidneys are replaced by innumerable cysts, in keeping with polycystic kidney disease. No hematoma or abnormal fluid collection. There is some residual oral contrast within the colon, likely from recent examination. CT/CT thoracic spine wo IV con IMPRESSION: 1. No acute thoracic spine fracture or evidence of injury. 2. Bulky ventral disc osteophytes throughout the thoracic spine with relative preservation of disc spaces, findings in keeping with DISH. 3. Old fracture of the right fifth rib. No acute fractures evident. 4. Mild cardiomegaly. Imaged lungs are clear allowing for respiratory motion. 5. Innumerable bilateral renal cysts bilaterally in keeping with autosomal dominant polycystic kidney disease. Electronically signed by: Kolby Garcia MD 09/17/2024 11:05 AM [facility]
--- NOTE | 2024-09-17 09:24 | ED_ITS ---
HPI - General Adult General Chief complaint: Fall Stated complaint: Fall, back pain, no head strike, weak, N/V per EMS Time Seen by Provider: 09/17/24 09:24 Source: patient and EMS Mode of arrival: EMS Limitations: no limitations History of Present Illness ED Provider: Deanna Geller PA-C HPI narrative: Patient is a 54 year old assigned male at with a history of DM, polycystic kidney disease, CKD stage 4, asthma, and epilepsy presenting to the emergency department with upper back pain after a slip and fall. Patient states that he was on his way to [facility] when he slipped on ice and fell, hitting his mid back. Patient denies any head strike or loss of consciousness. Patient denies any dizziness, lightheadedness, abdominal pain, nausea, vomiting, fever, chills, blurry vision, double vision, loss of vision, chest pain, difficulty breathing, shortness of breath, night sweats, pain with urination, increased urinary frequency, increased urinary urgency, blood in his urine or stool, syncope or a near syncopal episode, bowel incontinence, bladder incontinence, or any other complaints at this time. Relieving factors: none Exacerbating factors: none Associated symptoms: denies other symptoms Treatments prior to arrival: none Related Data Home Medications ?Medication ?Instructions ?Recorded ?Confirmed lamotrigine 200 mg tablet 200 mg PO BID 05/08/20 07/18/24 lorazepam 0.5 mg tablet 0.5 mg PO TID PRN Anxiety 05/08/20 07/18/24 trazodone 50 mg tablet 50 mg PO BEDTIME PRN Insomnia 05/08/20 07/18/24 pen needle, diabetic 32 gauge x #50 ea 07/25/20 03/02/24 olanzapine 5 mg tablet 5 mg PO BEDTIME 08/16/21 07/18/24 aripiprazole 5 mg tablet 5 mg PO DAILY 12/03/21 07/18/24 dapagliflozin propanediol 10 mg 10 mg PO DAILY 07/30/22 07/18/24 tablet (Farxiga) fluoxetine 40 mg capsule 40 mg PO DAILY 12/18/23 07/18/24 melatonin 5 mg tablet 5 mg PO BEDTIME 12/18/23 07/18/24 zonisamide 100 mg capsule 100 mg PO QID 12/18/23 07/18/24 sodium zirconium cyclosilicate 10 10 g PO MOWEFR@0900 04/15/24 07/18/24 gram oral powder packet (Lokelma) sodium bicarbonate 650 mg tablet 650 mg PO QID 05/06/24 07/18/24 acetaminophen 500 mg tablet 500 mg PO TID PRN fever or pain 07/18/24 07/18/24 (Tylenol Extra Strength) ergocalciferol (vitamin D2) 1,250 1,250 mcg PO WE@0900 07/18/24 07/18/24 mcg (50,000 unit) capsule fluticasone propionate 220 1 puff PO DAILY 07/18/24 07/18/24 mcg/actuation HFA aerosol inhaler levothyroxine 125 mcg tablet 125 mcg PO DAILY@0600 07/18/24 07/18/24 methocarbamol 750 mg tablet 750 mg PO Q8H PRN low back pain 07/18/24 07/18/24 polyethylene glycol 3350 17 gram 17 g PO DAILY PRN Constipation 07/18/24 07/18/24 oral powder packet (Miralax) Previous Rx's ?Medication ?Instructions ?Recorded blood-glucose meter (DxUpClose #1 ea 07/16/23 Ultra2 Meter kit) bisacodyl 5 mg tablet,delayed 10 mg (2 x 5 mg) PO BEDTIME 30 11/27/23 release (Dulcolax (bisacodyl)) days #60 tabs blood-glucose sensor (Dexcom G7 #3 ea 05/05/24 Sensor device) Dexcom G7 Nut Cracker (blood-glucose #1 ea 05/10/24 meter,continuous) rosuvastatin 5 mg tablet 5 mg PO DAILY #90 tabs 05/28/24 tizanidine 4 mg tablet 4 mg PO Q8H PRN muscle spasms 30 06/23/24 days #90 tabs lisinopril 2.5 mg tablet 2.5 mg PO BID #180 tabs 08/01/24 calcium polycarbophil 625 mg 625 mg PO BID PRN for constipation 08/05/24 tablet (Fiber (calcium #60 tabs polycarbophil)) omeprazole 20 mg capsule,delayed 20 mg PO DAILY #90 caps 08/05/24 release albuterol sulfate 90 mcg/actuation 2 puff inhalation Q4H PRN wheezing 08/13/24 aerosol inhaler #8.5 grams blood sugar diagnostic (OneTouch #100 ea 08/15/24 Ultra Test strips) omega 0-gdx-lur-fish oil 1,200 mg 1 cap PO DAILY #90 caps 09/09/24 (144 mg-216 mg) capsule (Fish Oil) Allergies Allergy/AdvReac Type Severity Reaction Status Date / Time atorvastatin AdvReac Intermediate elevated Verified 09/17/24 09:36 LFTs Review of Systems 2 Constitutional: Constitutional: Reports no additional constitutional complaints, Denies chills, Denies fever(s) and Denies night sweats Eyes: Eyes: Reports no additional eye complaints, Denies blurry vision, Denies change in vision, Denies diplopia, Denies eye discharge, Denies loss of vision and Denies eye pain ENT: Denies dizziness Cardiovascular: Cardiovascular: Reports no additional cardiovascular complaints, Denies chest pain, Denies lightheadedness, Denies Loss of Consciousness and Denies dyspnea Respiratory: Respiratory: Reports no additional respiratory complaints and Denies dyspnea Gastrointestinal: Gastrointestinal: Reports no additional gastrointestinal complaints, Denies abdominal pain, Denies melena, Denies hematochezia, Denies change in bowel habits and Denies change in stool character Genitourinary: Genitourinary: Reports no additional male genitourinary complaints, Denies hematuria, Denies oliguria, Denies difficulty urinating, Denies dysuria, Denies urinary frequency, Denies urinary hesitancy, Denies urinary incontinence and Denies urinary urgency Musculoskeletal: Musculoskeletal: Reports no additional musculoskeletal complaints, Reports back pain, Denies numbness and Denies tingling Neurologic: Denies dizziness, Denies loss of vision, Denies numbness and Denies tingling Psychiatric: Psychiatric: Reports no additional psychiatric complaints Endocrine: Endocrine: Reports no additional endocrine complaints Hematologic/Lymphatic: Hematologic/Lymphatic: Reports no additional hematologic/lymphatic complaints Allergic/Immunologic: Allergic/Immunologic: Reports no additional allergic/immunologic complaints PMFSH Past Medical History Attestation statement: The following information was validated with the patient. 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 Mother Hypertension Social History Social History Household Members: None Housing: House Do you presently have visiting nurse or other home services: Yes (Medication administration) Alcohol intake: former Comment: pt med with tylenol Patient Tobacco Use Status: Former Tobacco user Tobacco use type: Cigarette Smoked in Last 30 Days: No e-Cigarette/Vaping Use: Never Used Second Hand Smoke Exposure: No Use of substances other than those prescribed or required for medical reasons: No Advance Directives: No Advance Directives Information Provided: Yes Do you have a plan to hurt others: No Plan service: No Current occupational status: disabled 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 Cognitive needs: No Hearing needs: No Vision needs: Yes (glasses) Physical Exam ED Vital Signs: Vital Signs - 24 hr 09/17/24 09:27 09/17/24 12:37 Temperature 98.0 F 98.1 F Pulse Rate 70 70 Respiratory Rate 18 18 Blood Pressure 133/65 128/68 Pulse Oximetry 98 98 Oxygen Delivery Method Room Air Room Air BMI result Body Mass Index 27.2 Const General: cooperative, no acute distress, alert and awake Nutritional Appearance: well nourished Orientation/consciousness: patient oriented x3 Limitations: no limitations HENMT Head: Yes normal to inspection and Yes atraumatic Ears: hearing grossly normal bilaterally and external ears normal General nose exam: Normal external nose present, no nasal discharge noted and no epistaxis Face and sinus: Yes normal facial exam, No abrasion and No laceration Mouth: Normal oral and palatal mucosa present, no drooling and no muffled voice Eyes General: appearance normal, both eyes and all related structures Periorbital: periorbital findings normal Eyelids: Yes eyelids normal Conjunctivae: conjunctivae normal Pupils: Equal, round and reactive pupils present EOM: EOMs intact bilaterally Neck Neck: Yes normal visual inspection, Yes full ROM and Yes no lymphadenopathy Chest Chest palpation & inspection: normal inspection of the chest Resp Effort & Inspection: normal respiratory effort and able to speak in complete sentences GI Inspection: Yes normal to inspection Neuro General: patient oriented x3, moves all extremities and CN's II-XI intact bilaterally Cranial nerves: Yes Equal, round and reactive pupils present Cognition (Neuro): normal cognition Extrem General: Yes normal to inspection, Yes full ROM and Yes capillary refill normal Psych Appearance: grossly normal Mental Status: mental status grossly normal Affect: normal affect Attitude: cooperative Thought process: Normal thought process present Thought content: Normal thought content present Insight: Good insight present (Psych) Medical Decision Making Medical Decision Making MDM Narrative: Patient is a 54 year old assigned male at with a history of DM, polycystic kidney disease, CKD stage 4, asthma, and epilepsy presenting to the emergency department with upper back pain after a slip and fall. Patient's physical exam was unremarkable. Patient's blood work was unremarkable, consistent with his baseline, and improved from the most recent visits. Patient's CT head, c-spine, and thoracic spine showed no acute process. I explained my physical exam findings as well as all test results to the patient. I answered all questions asked by the patient. I stressed the importance of the patient taking his medication as directed (either prescribed or as the over the counter packaging recommends). I stressed the importance of the patient following up with his primary care provider. I stressed the importance of the patient returning to the emergency department immediately if his symptoms were to worsen or if he were to develop any dizziness, shortness of breath, difficulty breathing, chest pain, blurry vision, loss of vision, nausea, vomiting, abdominal pain, fever, chills, back pain, or any other complaints. Patient verbalized agreement and understanding with this treatment plan and discharge. 09/17/2024 1207 --> Patient got up to discharge and felt like he was unsteady on his feet. I witnessed a normal gait. Patient states that he has no idea what is going on but does not feel safe for home. Physical therapy and case management orders placed. 09/17/2024 1245 ---> Patient eloped from the department before physical therapy or case management could evaluate the patient. Patient had signed the discharge paperwork and verbalized understanding with his discharge prior to expressing he felt unsteady on his feet. Differential Diagnosis Differential Diagnoses: The differential diagnosis associated with the presentation includes Slip and fall Upper back pain Admission/Observation Consideration of admission/observation: Escalation of care including admission/observation considered Patient would have been admitted to the hospital had his work up had any findings where hospital admission was appropriate and his clinical presentation warranted hospital admission. Lab Data [facility] Lab Attestation statement: I reviewed the patient's lab results. My interpretation of these results are in the [facility] Rationale portion of this note. 09/17/24 09:56 09/17/24 09:56 Labs: Lab Results 09/17/24 Range/Units 09:56 WBC 6.0 (4.8-10.8) X10*3/uL RBC 4.09 L (4.60-5.80) X10*6/uL Hgb 12.0 L (14.0-18.0) g/dl Hct 36.9 L (42.0-52.0) % MCV 90.2 (80.0-98.0) fL MCH 29.3 (27.0-33.0) pg MCHC 32.5 (31.0-36.0) g/dl RDW 13.2 (11.0-16.0) % Plt Count 184 (160-400) X10*3/uL MPV 8.7 L (9.4-12.4) fL Immature Gran % (Auto) 0.3 (0.0-0.4) % Neut % (Auto) 70.2 (45-73) % Lymph % (Auto) 21.5 (20-40) % Harmon % (Auto) 6.2 (2-11) % Eos % (Auto) 1.3 (0-4) % Baso % (Auto) 0.5 (0-2) % Lymph # (Auto) 1.3 (1.2-4.9) X10*3/uL Harmon # (Auto) 0.4 (0.1-1.2) X10*3/uL Eos # (Auto) 0.1 (0.0-0.4) X10*3/uL Baso # (Auto) 0.0 (0.0-0.2) X10*3/uL Abs Immat Gran (auto) 0.02 (0.00-0.03) X10*3/uL Absolute Neuts (auto) 4.2 (2.0-8.3) x10*3/uL Absolute Nucleated RBC 0.000 (0.0-0.012) X10*3/uL Nucleated RBC % (auto) 0.0 (0.0-0.2) /100WBC Sodium 139 (135-145) mmol/L Potassium 5.0 (3.3-5.1) mmol/L Chloride 111 H (96-108) mmol/L Carbon Dioxide 20 L (22-29) mmol/L Anion Gap 13 (12-20) BUN 44 H (9-16) mg/dL Creatinine 2.85 H (0.5-1.4) mg/dL Estim Creat Clear Calc 29.9 Estimated GFR 23 Random Glucose 114 (60-115) mg/dL Calcium 9.2 (8.4-10.2) mg/dL Magnesium 2.7 H (1.6-2.6) mg/dL Total Bilirubin 0.4 (0.0-1.0) mg/dL AST 30 (5-37) U/L ALT 24 (0-40) U/L Alkaline Phosphatase 193 H (39-117) U/L Total Protein 7.6 (6.5-8.0) g/dL Albumin 4.4 (3.5-5.0) g/dL Independent Interpretation I performed an independent interpretation of an: CT Scan Interpretation: My interpretation is in agreement with the radiologist's impression of these imaging studies. L Report Number: [id number]: Total DLP = 779.04 mGy-cm EXAMINATION: CT HEAD WITHOUT CONTRAST CLINICAL INFORMATION: Fall, head strike, pain COMPARISON: 09/14/2024 CT and MRI brain. TECHNIQUE: Contiguous axial imaging was performed from the skull base to vertex without intravenous administration of contrast. This CT examination was performed using dose optimization techniques as appropriate, variously including the following: *Automated exposure control *Adjustment of mA and/or kV according to patient size (this includes techniques or standardized protocols for targeted exams where dose is matched to indication/reason for exam; i.e. extremities or head) *Use of iterative reconstruction technique FINDINGS: There is no evidence of intracranial hemorrhage or extra-axial fluid collection. There is no mass effect, or edema. No CT evidence of acute territorial infarct. Ventricles, sulci, and cisterns are normal in size and configuration for patient age. No hydrocephalus. No midline shift. 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 Negative hyperdense MCA sign. Negative insular ribbon sign. Old lacunar type infarct left anterior thalamus. Otherwise, no significant white matter abnormality. Normal pituitary. Mild atheromatous calcification of the bilateral carotid siphons and V4 segments vertebral arteries bilaterally. Globes and orbital contents image normally. No extracranial soft tissue abnormalities. Tiny mucous retention cysts left maxillary antrum. The paranasal sinuses, mastoid air cells, and tympanic cavities are otherwise normally aerated. No suspicious bony abnormalities. There are no acute fractures evident. CT/CT head/brain wo IV con IMPRESSION: No acute intracranial abnormalities. No fractures evident. Mild chronic changes. Electronically signed by: Kolby Garcia MD 09/17/2024 10:[address] [facility] Dictated By: Kolby Garcia MD Signed By: Electronically signed by Kolby Garcia MD 09/17/24 1045 Report Number: [id number]: Total DLP = 1145.42 mGy-cm EXAMINATION: CT THORACIC SPINE WITHOUT CONTRAST CLINICAL INFORMATION: [Fall, back pain. COMPARISON: None. Correlation made with CT abdomen and pelvis 09/14/2024. TECHNIQUE: Spiral CT examination thoracic spine was performed in axial plane without IV contrast. Multiplanar reformatted images were constructed from the axial data set. This CT examination was performed using dose optimization techniques as appropriate, variously including the following: *Automated exposure control *Adjustment of mA and/or kV according to patient size (this includes techniques or standardized protocols for targeted exams where dose is matched to indication/reason for exam; i.e. extremities or head) *Use of iterative reconstruction technique FINDINGS: Mild right convex scoliosis. Mildly exaggerated thoracic lordosis. No acute fracture, compression deformity, subluxation, or suspicious bone lesion. There is an old fracture of the right posterior seventh rib. The remaining ribs appear intact. Mild diffuse disc space narrowing present. There are bulky ventral fused and flowing disc osteophytes spanning T3-T12, with relative preservation of the disc spaces, findings in keeping with DISH. There is normal facet alignment. There are mild multilevel degenerative facet changes. Remainder the imaged osseous structures are intact without acute fracture. Paravertebral soft tissues are normal. There is mild cardiac enlargement. The aorta and mediastinal contents appear normal. There are no pleural effusions. The imaged lungs demonstrate mild paraseptal emphysematous changes, with moderate respiratory motion degradation. No discrete consolidation or suspicious opacity. No discrete nodule identified. Small type I hiatus hernia suspected The kidneys are replaced by innumerable cysts, in keeping with polycystic kidney disease. No hematoma or abnormal fluid collection. There is some residual oral contrast within the colon, likely from recent examination. CT/CT thoracic spine wo IV con IMPRESSION: 1. No acute thoracic spine fracture or evidence of injury. 2. Bulky ventral disc osteophytes throughout the thoracic spine with relative preservation of disc spaces, findings in keeping with DISH. 3. Old fracture of the right fifth rib. No acute fractures evident. 4. Mild cardiomegaly. Imaged lungs are clear allowing for respiratory motion. 5. Innumerable bilateral renal cysts bilaterally in keeping with autosomal dominant polycystic kidney disease. Electronically signed by: Kolby Garcia MD 09/17/2024 11:[address] [facility] Dictated By: Kolby Garcia MD Signed By: Electronically signed by Kolby Garcia MD 09/17/24 1105 Report Number: [id number]: Total DLP = 437.74 mGy-cm EXAMINATION: CT CERVICAL SPINE WITHOUT CONTRAST CLINICAL INFORMATION: Fall, head strike, neck pain. COMPARISON: 09/14/2024, and dating back to 01/30/2016. TECHNIQUE: Spiral CT imaging of the cervical spine performed in axial plane without contrast. Multiplanar reformatted images were constructed from the axial data set. This CT examination was performed using dose optimization techniques as appropriate, variously including the following: *Automated exposure control *Adjustment of mA and/or kV according to patient size (this includes techniques or standardized protocols for targeted exams where dose is matched to indication/reason for exam; i.e. extremities or head) *Use of iterative reconstruction technique FINDINGS: CORONAL ALIGNMENT: -Normal SAGITTAL ALIGNMENT: -Normal lordosis. No subluxations. C1-C2 AND CRANIOCERVICAL JUNCTION: -Intact and aligned normally. There are C1 due to degenerative changes. VERTEBRAL BODIES AND FACETS: -No fracture, traumatic subluxation, compression deformity, or suspicious bone lesion. -Lucent foci in C3 and C5, unchanged from 2016, consistent with vertebral hemangiomas. DISCS: -Mild to moderate diffuse loss of disc height. Mild disc osteophytic spurs ventrally at C5 and C6. PREVERTEBRAL AND PARAVERTEBRAL SOFT TISSUES: -Normal. No prevertebral abnormalities. -Thyroid is diminutive. -No masses or abnormal lymph nodes within the neck. LUNG APICES: -Mild paraseptal emphysematous change, with minimal biapical scarring. Otherwise clear. CT/CT cervical spine wo IV con IMPRESSION: 1. No CT evidence of acute cervical spine fracture or injury. Stable examination from priors. Electronically signed by: Kolby Garcia MD 09/17/2024 10:[address] [facility] Dictated By: Kolby Garcia MD Signed By: Electronically signed by Kolby Garcia MD 09/17/24 1055 Radiology Impression Discussion of test interpretation with radiology: I have reviewed the radiologist's reading. Independent Historian Clinical information obtained from an independent historian. History obtained from or confirmed by: EMS (EMS provided additional history and confirmed the history provided by the patient.) Discharge Plan Discharge Clinical Impression: Fall from slipping, Back pain Patient Disposition: Elopement Instructions: Back Pain (ED) Additional Instructions: Follow up with your primary care provider. Return to the emergency department immediately if your symptoms worsen or if you develop any dizziness, shortness of breath, difficulty breathing, chest pain, blurry vision, loss of vision, nausea, vomiting, abdominal pain, fever, chills, back pain, or any other complaints. Prescriptions: No Action (DME) blood-glucose meter [OneTouch Ultra2 Meter] Kit See Rx Instructions .ROUTE .MEDSUPPLY Qty: 1 0RF Rx Instructions: As directed bisacodyl [Dulcolax (bisacodyl)] 5 mg tablet,delayed release (DR/EC) 10 mg PO BEDTIME 30 Days Qty: 60 1RF (DME) Dexcom G7 Sensor Device See Rx Instructions .Route Qty: 3 5RF Rx Instructions: As directed change every 10 days (DME) Dexcom G7 Nut Cracker Misc See Rx Instructions .Route Qty: 1 3RF Rx Instructions: As directed rosuvastatin 5 mg tablet 5 mg PO DAILY Qty: 90 1RF tizanidine 4 mg tablet 4 mg PO Q8H PRN (Reason: muscle spasms) 30 Days Qty: 90 0RF lisinopril 2.5 mg tablet 2.5 mg PO BID Qty: 180 0RF calcium polycarbophil [Fiber (calcium polycarbophil)] 625 mg tablet 625 mg PO BID PRN (Reason: for constipation) Qty: 60 6RF omeprazole 20 mg capsule,delayed release(DR/EC) 20 mg PO DAILY Qty: 90 2RF albuterol sulfate 90 mcg/actuation HFA aerosol inhaler 2 puff inhalation Q4H PRN (Reason: wheezing) Qty: 8.5 3RF (DME) OneTouch Ultra Test Strip See Rx Instructions .ROUTE .MEDSUPPLY Qty: 100 5RF Rx Instructions: As directed once a day omega 1-vmt-spp-fish oil [Fish Oil] 1,200 (144-216) mg capsule 1 cap PO DAILY Qty: 90 3RF levothyroxine 125 mcg tablet 125 mcg PO DAILY@0600 polyethylene glycol 3350 [Miralax] 17 gram Powder In Packet 17 g PO DAILY PRN (Reason: Constipation) methocarbamol 750 mg tablet 750 mg PO Q8H PRN (Reason: low back pain) acetaminophen [Tylenol Extra Strength] 500 mg tablet 500 mg PO TID PRN (Reason: fever or pain) fluticasone propionate [Flovent HFA] 220 mcg/actuation HFA aerosol inhaler 1 puff PO DAILY ergocalciferol (vitamin D2) 1,250 mcg (50,000 unit) capsule 1,250 mcg PO WE@0900 lorazepam 0.5 mg tablet 0.5 mg PO TID PRN (Reason: Anxiety) lamotrigine 200 mg tablet 200 mg PO BID trazodone 50 mg tablet 50 mg PO BEDTIME PRN (Reason: Insomnia) zonisamide 100 mg capsule 100 mg PO QID Farxiga 10 mg tablet 10 mg PO DAILY aripiprazole 5 mg tablet 5 mg PO DAILY (DME) pen needle, diabetic 32 gauge x / needle See Rx Instructions subcut .MEDSUPPLY Qty: 50 Rx Instructions: As directed olanzapine 5 mg tablet 5 mg PO BEDTIME melatonin 5 mg tablet 5 mg PO BEDTIME fluoxetine 40 mg capsule 40 mg PO DAILY Lokelma 10 gram powder in packet 10 g PO MOWEFR@0900 sodium bicarbonate 650 mg tablet 650 mg PO QID Referrals: Zeb Ca MD [Primary Care Provider] - Interventions: ED Discharge Assessment Last Done: 09/17/24 12:37 Discharge Date/Time: 09/17/24 12:37 Print Language: Portuguese
[2024-09-17 09:26] VITALS: BP 145/98; PULSE 78; O2SAT 99
[2024-09-17 09:27] VITALS: BP 133/65; PULSE 70; RESP 18; TEMP 36.7; O2SAT 98; BMI 27.2
[2024-09-17 10:00] LABS: MANUAL DIFF FLAG NO
[2024-09-17 10:07] LABS: Basophils Percent Auto 0.5 % (0-2); Eosinophils Absolute Auto 0.1 X10*3/uL (0.0-0.4); Eosinophils Percent Auto 1.3 % (0-4); Hematocrit 36.9 % (42.0-52.0); Imm Gran Abs Auto 0.02 X10*3/uL (0.00-0.03); Imm Gran Pct Auto 0.3 % (0.0-0.4); Lymphocytes Absolute Auto 1.3 X10*3/uL (1.2-4.9); Lymphocytes Percent Auto 21.5 % (20-40); Mean Corpuscular HGB Conc 32.5 g/dl (31.0-36.0); Mean Corpuscular Hemoglobin 29.3 pg (27.0-33.0); Mean Corpuscular Volume 90.2 fL (80.0-98.0); Mean Platelet Volume 8.7 fL (9.4-12.4); Monocytes Absolute Auto 0.4 X10*3/uL (0.1-1.2); Monocytes Percent Auto 6.2 % (2-11); Neutrophils Absolute Auto 4.2 x10*3/uL (2.0-8.3); Neutrophils Percent Auto 70.2 % (45-73); Platelet Count 184 X10*3/uL (160-400); Red Blood Count 4.09 X10*6/uL (4.60-5.80); Red Cell Distribution Width 13.2 % (11.0-16.0)
--- NOTE | 2024-09-17 10:09 | PC.NURSE ---
pt to radiology for ct scan, labs drawn
[2024-09-17 10:16] LABS: Alanine Aminotransferase 24 U/L (0-40); Albumin Level 4.4 g/dL (3.5-5.0); Alkaline Phosphatase 193 U/L (39-117); Anion Gap 13 (12-20); Aspartate Amino Transferase 30 U/L (5-37); Bilirubin Total 0.4 mg/dL (0.0-1.0); Blood Urea Nitrogen 44 mg/dL (9-16); Calcium 9.2 mg/dL (8.4-10.2); Carbon Dioxide 20 mmol/L (22-29); Chloride 111 mmol/L (96-108); Creatinine Clr Calc Pharmacy 29.9; Estimated Glomerular Filt Rate 23; Glucose Random 114 mg/dL (60-115); Magnesium 2.7 mg/dL (1.6-2.6); Sodium 139 mmol/L (135-145); Total Protein 7.6 g/dL (6.5-8.0)
--- OUTSIDE RECORDS SUMMARY | 2024-09-17 10:20 | XMS_ITS | Encounter Summary ---
Author Organization [facility] Address [address] [place] [address] Care Team Providers Care Manager Retirement Name Role Phone Zeb Ca MD Primary Care Provider + [phone] Reason for Referral * Consultation (Routine) - Authorized Specialty Diagnoses / Procedures Referred By Tai pate Referred To Contact Physical Therapy Diagnoses Tendonitis, Achilles, left Michael Mercedes DPM [address] [address] Phone: tel: fax: Referral ID Status Reason Start Date Expiration Date Visits Requested Visits Authorized [id number] Authorized Specialty Services Required 09/08/2024 09/08/2025 20 20 Reason for Visit * Reason Comments Follow-up Diabetic foot exam Encounter Details Date Type Department Care Team (Late st Contact Info) Description 09/08/2024 10:15 AM EST Office Visit Orthopedic Surgery - [place] [address] [address] Michael Mercedes DPM [address] [address] Tendonitis, Achilles, left (Primary Dx); Follow-up exam; [...] Info) Description 09/29/2024 12:30 PM EST Evaluation [address] [address] Nicole Eubanks, PT 12/06/2024 10:15 AM EDT Office Visit Orthopedic Surgery - [place] [address] [address] Michael Mercedes, DPM [address] [address] Scheduled Referrals Name Type Priority Associated Diagnoses [...] 09/08/2024 documented in this encounter Care Teams Manager Retirement Relationship Specialty Start Date End Date Zeb Ca MD [address] [place] [address] PCP - General Internal Medicine 05/07/24 documented as of this encounter
--- OUTSIDE RECORDS SUMMARY | 2024-09-17 10:20 | XMS_ITS | Encounter Summary ---
Author Organization [facility] Address [address] [address] Phone Care Team Providers Care Tamping Machine Operator Name Role Phone Zeb Ca MD Primary Care Provider +1- [phone] Encounter Details Date Type Department Care Team (Late Contact Info) Description 09/06/2024 Orders Only [facility] [address] [address] Nelson Knowles MD [address] [address] Social History Tobacco Use Types [...] Visit [facility] [address] [place] [address] Nelson Knowles MD [address] [address] documented as of this encounter [...] ORDERABLES Final Re sult Performing Organization Address [facility] Co de Phone Number [place] See order comments [place] [address] * (ABNORMAL) Creatinine (09/06/2024 8:53 AM EST) Creatinine Serum 2.94(H) 0.5 - 1.4 mg/dL See order comments eGFR 23 See order comments Comment: Chronic Kidney Disease: ??Estimated GFR < 60 mL/min/1.73m2 Severe Kidney Disease: ??Estimated GFR < 15 mL/min/1.73m2 09/06/2024 8:53 AM EST 09/06/2024 8:53 AM EST us Nelson Knowles MD LAB BLOOD ORDERABLES Final Re sult Performing Organization Address [facility] Co de Phone Number [place] See order comments [place] [address] * (ABNORMAL) BUN (09/06/2024 8:53 AM EST) BUN 46(H) 9 - 16 mg/dL See order comments 09/06/2024 8:53 AM EST 09/06/2024 8:53 AM EST us Nelson Knowles MD LAB BLOOD ORDERABLES Final Re sult [place] See order comments [place] [address] * (ABNORMAL) Electrolyte panel (09/06/2024 8:53 AM [...] ORDERABLES Final Re sult Performing Organization Address City/[facility] Co de Phone Number [place] See order comments [place] [address] * (ABNORMAL) CBC and Differential (09/06/2024 8:53 [...] MD LAB BLOOD ORDERABLES Final Re sult [place] See order comments [place] [address] documented in this encounter Visit Diagnoses Not on filedocumented in this encounter Care Teams Tamping Machine Operator Relationship Specialty Start Date End Date Zeb Ca MD [address] [place] [address] PCP - General Internal Medicine 09/21/21 documented as of this encounter
--- OUTSIDE RECORDS SUMMARY | 2024-09-17 10:20 | XMS_ITS | Encounter Summary ---
Author Organization [facility] Address [address] [address] Phone Care Team Providers Care Sales Market Leader Name Role Phone Zeb Ca MD Primary Care Provider +1- [phone] Encounter Details Date Type Department Care Team (Late Contact Info) Description 06/16/2024 Office Communication [facility] [address] [address] Nelson Knowles MD [address] [address] Social History Tobacco Use Types [...] Office Visit [facility] [address] [place] [address] Nelson Knowles MD [address] [address] documented as of this encounter Visit Diagnoses Not on filedocumented in this encounter Care Teams Sales Market Leader Relationship Specialty Start Date End Date Zeb Ca MD [address] [place] [id number] PCP - General Internal Medicine 09/21/21 documented as of this encounter
--- OUTSIDE RECORDS SUMMARY | 2024-09-17 10:20 | XMS_ITS | Clinical Summary ---
Author Organization [facility] Address [address] [place] [address] Phone Care Team Providers Care Social Media Marketing Specialist Name Role Phone Zeb Ca MD Primary Care Provider +1- [phone] Allergies No known active allergies Medications zonisamide [...] diskus inhaler Activ e ergocalciferol 1.25 MG (82760 UT) capsule Take 1 capsule by mouth [...] Orders Only [facility] [address] [address] Nelson Knowles MD 08/01/2024 Refill [facility] [address] [address] Nelson Knowles MD 07/29/2024 Refill [facility] Of [address] [place] [address] Nelson Knowles MD 06/19/2024 Refill [facility] Of [address] [place] [address] Nelson Knowles MD from Last 3 Months [...] Visit [facility] the [address] [place] [address] Nelson Knowles MD [address] [facility] [address] [place] [address] Health Maintenance Due Date Last Done Comments [...] AM EST ALT EXT LABS Routine 09/01/2024 from Last 3 Months Results * (ABNORMAL) [...] order comments [place] [address] * (ABNORMAL) CBC and Differential (09/06/2024 8:53 [...] order comments [place] [address] * (ABNORMAL) BUN (09/06/2024 8:53 AM EST) BUN 46(H) 9 - 16 mg/dL See order comments 09/06/2024 8:53 AM EST 09/06/2024 8:53 AM EST Nelson Knowles MD LAB BLOOD ORDERABLES Final Re sult [place] See order comments [place] [address] * Calcium (09/06/2024 8:53 AM EST) Calcium 8.7 8.4 - 10.2 mg/dL See order comments 09/06/2024 8:53 AM EST 09/06/2024 8:53 AM EST Nelson Knowles MD LAB BLOOD ORDERABLES Final Re sult [place] See order comments [place] [address] * (ABNORMAL) Electrolyte panel (09/06/2024 8:53 AM [...] MD LAB BLOOD ORDERABLES Final Re sult [place] See order comments [place] [address] * ALT EXT LABS (09/01/2024) Hemoglobin A1C 5.5 4.0 - 6.0 09/01/2024 Historical Provider LAB BLOOD ORDERABLES Lizbeth l Result from Last 3 Months Insurance [facility] ([id number]) [place] [id number] [facility] ([id number]) [place] [id number] Care Teams Social Media Marketing Specialist Relationship Specialty Start Date End Date Zeb Ca MD [address] [place] [address] PCP - General Internal Medicine 09/21/21
--- NOTE | 2024-09-17 12:35 | PC.NURSE ---
pt signed discharge paperwork, had requested to see provider. pt/cm was requested. prior to PT coming to see the patient he left. provider is aware.
[2024-09-17 12:37] VITALS: BP 128/68; PULSE 70; RESP 18; TEMP 36.7; O2SAT 98
--- NOTE | 2024-09-17 12:40 | MHC.CM.ED ---
Received case management consult. Patient was d/c'd before being seen by case management.
== END 2024-09-17 12:37 | disposition left against medical advice (07) ==
PROVIDERS: Physician Assistant Medical; Emergency Provider Emergency Medicine; PCP Internal Medicine
DX: S39.92XA Unspecified injury of lower back, initial encounter (principal); W00.0XXA Fall on same level due to ice and snow, initial encounter; Y93.9 Activity, unspecified; Y92.9 Unspecified place or not applicable; Y99.8 Other external cause status
CPT/HCPCS: 36415; 70450; 72125; 72128; 80053; 83735; 85025; 99284

== ENCOUNTER → 2024-09-17 09:28 | Outpatient (BNV) | payer OTHER, SELFPAY | PROVIDERS: Emergency Provider Emergency Medicine; PCP Internal Medicine; Visit Provider Radiology Diagnostic Radiology | DX: R51.9 Headache, unspecified (principal); M54.6 Pain in thoracic spine; M54.2 Cervicalgia | CPT/HCPCS: 70450; 72125; 72128 ==

== ENCOUNTER 2024-09-17 13:44 | Emergency (ER) | payer OTHER, SELFPAY ==
--- NOTE | ~2024-09-17 | CT_ITS ---
EXAMINATION: CT CERVICAL SPINE WITHOUT IV CONTRAST HISTORY: fall with head strike, collared. TECHNIQUE: Helical CT of the cervical spine was performed per standard departmental protocol. Coronal and sagittal reformatted images were also evaluated. One or more of the following techniques was used for dose reduction: Automated exposure control, adjustment of the mA and/or kV according to patient size, use of iterative reconstruction technique. DLP: 463.48 mGy-cm COMPARISON: Comparison is made with the prior examination performed earlier in the day. FINDINGS: CERVICAL SPINE: There are stable lucencies in the C3 C5 vertebral bodies compatible with hemangiomas. The vertebral bodies maintain normal height and alignment without evidence of fracture or subluxation. There is diffuse mild degenerative disc disease with disc space narrowing and osteophyte formation. Evaluation for disc pathology is limited by lack of intrathecal contrast material, however. BRAIN: The visualized portion of the brain is unremarkable. SINUSES: The visualized paranasal sinuses, mastoid air cells and middle ear cavities are unremarkable. LUNG APICES: The visualized lung apices are clear. SOFT TISSUES: The visualized paraspinal soft tissues are unremarkable. CT/CT cervical spine wo IV con IMPRESSION: No evidence of fracture or malalignment of the cervical spine. Electronically signed by: Emiliano Melgar MD 09/17/2024 03:45 PM EST
--- NOTE | ~2024-09-17 | CT_ITS ---
EXAMINATION: CT HEAD WITHOUT IV CONTRAST HISTORY: fall with head strike. TECHNIQUE: Unenhanced helical CT of the head was performed per standard departmental protocol. Coronal and sagittal reformats of the head were also evaluated. One or more of the following techniques was used for dose reduction: Automated exposure control, adjustment of the mA and/or kV according to patient size, use of iterative reconstruction technique. DLP: 7-7.67 mGy-cm COMPARISON: Comparison is made with the prior examination performed earlier in the day at 9:47 AM. FINDINGS: BRAIN: The brain parenchyma is unremarkable. There is normal esquivel/white differentiation. The ventricular system is normal in size and configuration. There is no mass effect or midline shift. No intra- or extra-axial fluid collections are identified. SINUSES: There are polyps versus mucous retention cysts in the left maxillary sinus. The mastoid air cells and middle ear cavities are well pneumatized. ORBITS: The visualized orbits are unremarkable. BONES/SOFT TISSUES: The extracranial soft tissues are unremarkable. The calvarium is intact. No suspicious lytic or sclerotic lesions. CT/CT head/brain wo IV con IMPRESSION: No acute intracranial abnormality. Electronically signed by: Emiliano Melgar MD 09/17/2024 03:42 PM [facility]
--- NOTE | 2024-09-17 13:57 | ED_ITS ---
HPI - General Adult General Chief complaint: Fall Stated complaint: LEFT THIS AM, FALL PER EMS Time Seen by Provider: 09/17/24 13:57 Source: patient, EMS, RN notes reviewed and old records reviewed Mode of arrival: EMS Limitations: no limitations History of Present Illness ED Provider: Lloa HPI narrative: Patient is a 54-year-old male with history of DM, polycystic kidney disease, CKD stage 4, asthma, epilepsy presenting to the emergency department with neck pain after a slip and fall. Patient was evaluated in this emergency department this morning for upper back pain related to a slip and fall. He has a history of frequent falls. Workup was essentially unremarkable, however, patient eloped from the emergency department prior to physical therapy evaluation to determine if he qualifies for a walker. He now complains neck pain and arrives in C- collar from EMS. He reports positive head strike, denies loss of consciousness. He is not anticoagulated. He denies any other pain/complaints. MD complaint: neck pain Onset (ago): minute(s) Location: neck Radiation: non-radiation Severity scale (1-10): 5 Quality: aching Related Data Home Medications ?Medication ?Instructions ?Recorded ?Confirmed lamotrigine 200 mg tablet 200 mg PO BID 05/08/20 07/18/24 lorazepam 0.5 mg tablet 0.5 mg PO TID PRN Anxiety 05/08/20 07/18/24 trazodone 50 mg tablet 50 mg PO BEDTIME PRN Insomnia 05/08/20 07/18/24 pen needle, diabetic 32 gauge x #50 ea 07/25/20 03/02/24 olanzapine 5 mg tablet 5 mg PO BEDTIME 08/16/21 07/18/24 aripiprazole 5 mg tablet 5 mg PO DAILY 12/03/21 07/18/24 dapagliflozin propanediol 10 mg 10 mg PO DAILY 07/30/22 07/18/24 tablet (Farxiga) fluoxetine 40 mg capsule 40 mg PO DAILY 12/18/23 07/18/24 melatonin 5 mg tablet 5 mg PO BEDTIME 12/18/23 07/18/24 zonisamide 100 mg capsule 100 mg PO QID 12/18/23 07/18/24 sodium zirconium cyclosilicate 10 10 g PO MOWEFR@0900 04/15/24 07/18/24 gram oral powder packet (Lokelma) sodium bicarbonate 650 mg tablet 650 mg PO QID 05/06/24 07/18/24 acetaminophen 500 mg tablet 500 mg PO TID PRN fever or pain 07/18/24 07/18/24 (Tylenol Extra Strength) ergocalciferol (vitamin D2) 1,250 1,250 mcg PO WE@0900 07/18/24 07/18/24 mcg (50,000 unit) capsule fluticasone propionate 220 1 puff PO DAILY 07/18/24 07/18/24 mcg/actuation HFA aerosol inhaler levothyroxine 125 mcg tablet 125 mcg PO DAILY@0600 07/18/24 07/18/24 methocarbamol 750 mg tablet 750 mg PO Q8H PRN low back pain 07/18/24 07/18/24 polyethylene glycol 3350 17 gram 17 g PO DAILY PRN Constipation 07/18/24 07/18/24 oral powder packet (Miralax) Previous Rx's ?Medication ?Instructions ?Recorded blood-glucose meter (Roamz #1 ea 07/16/23 Ultra2 Meter kit) bisacodyl 5 mg tablet,delayed 10 mg (2 x 5 mg) PO BEDTIME 30 11/27/23 release (Dulcolax (bisacodyl)) days #60 tabs blood-glucose sensor (Dexcom G7 #3 ea 05/05/24 Sensor device) Dexcom G7 Lawn Care Worker (blood-glucose #1 ea 05/10/24 meter,continuous) rosuvastatin 5 mg tablet 5 mg PO DAILY #90 tabs 05/28/24 tizanidine 4 mg tablet 4 mg PO Q8H PRN muscle spasms 30 06/23/24 days #90 tabs lisinopril 2.5 mg tablet 2.5 mg PO BID #180 tabs 08/01/24 calcium polycarbophil 625 mg 625 mg PO BID PRN for constipation 08/05/24 tablet (Fiber (calcium #60 tabs polycarbophil)) omeprazole 20 mg capsule,delayed 20 mg PO DAILY #90 caps 08/05/24 release albuterol sulfate 90 mcg/actuation 2 puff inhalation Q4H PRN wheezing 08/13/24 aerosol inhaler #8.5 grams blood sugar diagnostic (Roamz #100 ea 01/12/25 Ultra Test strips) omega 9-ebu-cgr-fish oil 1,200 mg 1 cap PO DAILY #90 caps 09/09/24 (144 mg-216 mg) capsule (Fish Oil) Allergies Allergy/AdvReac Type Severity Reaction Status Date / Time atorvastatin AdvReac Intermediate elevated Verified 09/17/24 14:03 LFTs Review of Systems 2 Review of Systems: As per HPI. Yes all other systems are reviewed and are negative Constitutional: Constitutional: Reports 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 Mother Hypertension Social History Social History Household Members: None Housing: House Do you presently have visiting nurse or other home services: Yes (Medication administration) Alcohol intake: former Comment: pt med with tylenol Patient Tobacco Use Status: Former Tobacco user Tobacco use type: Cigarette Smoked in Last 30 Days: No e-Cigarette/Vaping Use: Never Used Second Hand Smoke Exposure: No Use of substances other than those prescribed or required for medical reasons: No Advance Directives: No Advance Directives Information Provided: Yes Do you have a plan to hurt others: No Plan service: No Current occupational status: disabled 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 Cognitive needs: No Hearing needs: No Vision needs: Yes (glasses) Physical Exam ED Vital Signs: Vital Signs - 24 hr 09/17/24 13:59 Temperature 98.1 F Pulse Rate 63 Respiratory Rate 18 Blood Pressure 138/88 Pulse Oximetry 98 Oxygen Delivery Method Room Air BMI result Body Mass Index 27.2 Const General: cooperative, healthy appearing and no acute distress Orientation/consciousness: oriented to person, oriented to place, oriented to time and patient oriented x3 Limitations: no limitations HENMT Head: Yes normocephalic and Yes atraumatic Ears: external ears normal General nose exam: Normal external nose present Face and sinus: Yes face symmetric Mouth: oropharynx normal and moist mucous membranes Mouth/tongue images: 2 1. minor laceration/bite to left lateral tongue no active bleeding, dried blood on tongue Throat: Yes uvula midline Eyes Pupils: Equal, round and reactive pupils present Neck Neck: Yes normal visual inspection and Yes trachea midline Chest Chest palpation & inspection: normal inspection of the chest and normal palpation of entire chest wall Resp Effort & Inspection: normal respiratory effort and able to speak in complete sentences Auscultation: clear to auscultation bilaterally Cardio Rate: regular rate Rhythm: regular rhythm Heart sounds: S1 normal heart sound present and S2 normal heart sound present GI Palpation (GI): Soft to palpation and nontender Auscultation: normoactive bowel sounds General: Yes no CVA tenderness Back/Spine/Pelvis Back: no CVA tenderness Cervical Spine: collar present Pelvis: no pain with anterior-posterior compression and no pain with lateral compression Skin General skin exam: elasticity normal and turgor normal Neuro General: oriented to person, oriented to place, oriented to time, patient oriented x3, moves all extremities, no focal motor deficits and CN's II-XI intact bilaterally Cranial nerves: Yes Equal, round and reactive pupils present Cognition (Neuro): normal cognition Extrem General: Yes full ROM, Yes no pedal edema and Yes no calf tenderness Psych Mental Status: mental status grossly normal Affect: normal affect Thought process: Normal thought process present Medical Decision Making Medical Decision Making MDM Narrative: Patient is a 54-year-old male with history of DM, polycystic kidney disease, CKD stage 4, asthma, epilepsy presenting to the emergency department with neck pain after a slip and fall. On exam patient is awake, A+Ox3, VS WNL, afebrile, normal neurological exam without focal deficits, physical exam findings as above. Given reported symptoms and physical exam findings, initial differential includes but is not limited to cervical strain, cervical vertebral fracture or subluxation, ICH, skull fracture, seizure, tongue laceration. Given that patient eloped from this ED within the past few hours, will obtain CT head and c-spine, check lactic to assess for possible seizure. Patient's earlier workup was unremarkable and he was only waiting to be seen by PT to determine if he should be ambulating with a walker to prevent falls. Lactic normal, seizure unlikely. CT head and c-spine notable for no evidence of ICH, skull or cervical vertebral fracture or subluxation. My interpretation is in agreement with the radiologist's interpretation. Discussed with patient if he is agreeable to stay for PT eval this time, and he states that his primary concern is that he is unable to robledo his social security check for 6 weeks and is unable to pay for food. Will place patient on physician observation at this time, pending PT/CM evals. Patient states that he is agreeable to this. Differential Diagnosis Differential Diagnoses: The differential diagnosis associated with the presentation includes As per [facility] Admission/Observation Consideration of admission/observation: Escalation of care including admission/observation considered Patient would have been admitted to the hospital had their work up had any findings where hospital admission was appropriate and their clinical presentation warranted hospital admission. Lab Data [facility] Lab Attestation statement: I reviewed the patient's lab results. As per [facility] Labs: Lab Results 09/17/24 Range/Units 14:40 Lactic Acid 0.5 (0.5-2.0) mmol/L Independent Interpretation I performed an independent interpretation of an: CT Scan Interpretation: CT head and c-spine notable for no evidence of ICH, skull or cervical vertebral fracture or subluxation. Radiology Impression Discussion of test interpretation with radiology: I have reviewed the radiologist's reading. Radiologist Impression: CT/CT cervical spine wo IV con IMPRESSION: No evidence of fracture or malalignment of the cervical spine. CT/CT head/brain wo IV con IMPRESSION: No acute intracranial abnormality. External Record Review External record reviewed: Inpatient record, Office record and Outpatient record Discharge Plan Discharge Clinical Impression: Fall Patient Disposition: Still a Patient Prescriptions: No Action (DME) blood-glucose meter [OneTouch Ultra2 Meter] Kit See Rx Instructions .ROUTE .MEDSUPPLY Qty: 1 0RF Rx Instructions: As directed bisacodyl [Dulcolax (bisacodyl)] 5 mg tablet,delayed release (DR/EC) 10 mg PO BEDTIME 30 Days Qty: 60 1RF (DME) Dexcom G7 Sensor Device See Rx Instructions .Route Qty: 3 5RF Rx Instructions: As directed change every 10 days (DME) Dexcom G7 Lawn Care Worker Misc See Rx Instructions .Route Qty: 1 3RF Rx Instructions: As directed rosuvastatin 5 mg tablet 5 mg PO DAILY Qty: 90 1RF tizanidine 4 mg tablet 4 mg PO Q8H PRN (Reason: muscle spasms) 30 Days Qty: 90 0RF lisinopril 2.5 mg tablet 2.5 mg PO BID Qty: 180 0RF calcium polycarbophil [Fiber (calcium polycarbophil)] 625 mg tablet 625 mg PO BID PRN (Reason: for constipation) Qty: 60 6RF omeprazole 20 mg capsule,delayed release(DR/EC) 20 mg PO DAILY Qty: 90 2RF albuterol sulfate 90 mcg/actuation HFA aerosol inhaler 2 puff inhalation Q4H PRN (Reason: wheezing) Qty: 8.5 3RF (DME) OneTouch Ultra Test Strip See Rx Instructions .ROUTE .MEDSUPPLY Qty: 100 5RF Rx Instructions: As directed once a day omega 5-rdg-myn-fish oil [Fish Oil] 1,200 (144-216) mg capsule 1 cap PO DAILY Qty: 90 3RF levothyroxine 125 mcg tablet 125 mcg PO DAILY@0600 polyethylene glycol 3350 [Miralax] 17 gram Powder In Packet 17 g PO DAILY PRN (Reason: Constipation) methocarbamol 750 mg tablet 750 mg PO Q8H PRN (Reason: low back pain) acetaminophen [Tylenol Extra Strength] 500 mg tablet 500 mg PO TID PRN (Reason: fever or pain) fluticasone propionate [Flovent HFA] 220 mcg/actuation HFA aerosol inhaler 1 puff PO DAILY ergocalciferol (vitamin D2) 1,250 mcg (50,000 unit) capsule 1,250 mcg PO WE@0900 lorazepam 0.5 mg tablet 0.5 mg PO TID PRN (Reason: Anxiety) lamotrigine 200 mg tablet 200 mg PO BID trazodone 50 mg tablet 50 mg PO BEDTIME PRN (Reason: Insomnia) zonisamide 100 mg capsule 100 mg PO QID Farxiga 10 mg tablet 10 mg PO DAILY aripiprazole 5 mg tablet 5 mg PO DAILY (DME) pen needle, diabetic 32 gauge x needle See Rx Instructions subcut .MEDSUPPLY Qty: 50 Rx Instructions: As directed olanzapine 5 mg tablet 5 mg PO BEDTIME melatonin 5 mg tablet 5 mg PO BEDTIME fluoxetine 40 mg capsule 40 mg PO DAILY Lokelma 10 gram powder in packet 10 g PO MOWEFR@0900 sodium bicarbonate 650 mg tablet 650 mg PO QID Print Language: Congolese
[2024-09-17 13:59] VITALS: BP 138/88; PULSE 63; RESP 18; TEMP 36.7; O2SAT 98; BMI 27.2
--- OUTSIDE RECORDS SUMMARY | 2024-09-17 14:10 | XMS_ITS | Clinical Summary ---
Author Organization [facility] Address [address] [place] [address] Phone Care Team Providers Care Voice Network Engineer Name Role Phone Zeb Ca MD Primary Care Provider +1- [phone] Allergies No known active allergies Medications zonisamide [...] diskus inhaler Activ e ergocalciferol 1.25 MG (12608 UT) capsule Take 1 capsule by mouth [...] Orders Only [facility] [address] [address] Nelson Knowles MD 08/01/2024 Ref[facility] [address] [address] Nelson Knowles MD 07/29/2024 Refill [facility] [address] [place] [address] Nelson Knwoles MD 06/19/2024 Refill [facility] Of [address] [place] [address] Nelson Knowles MD from Last 3 Months [...] Visit [facility] the [address] [place] [address] Nelson Knowles MD [address] [facility] [address] [place] [address] Health Maintenance Due Date Last [...] order comments [place] [address] * (ABNORMAL) CBC and Differential (09/06/2024 8:53 [...] order comments [place] [address] * (ABNORMAL) BUN (09/06/2024 8:53 AM EST) BUN 46(H) 9 - 16 mg/dL See order comments 09/06/2024 8:53 AM EST 09/06/2024 8:53 AM EST Nelson Knowles MD LAB BLOOD ORDERABLES Final Re sult [place] See order comments [place] [address] * Calcium (09/06/2024 8:53 AM EST) Calcium 8.7 8.4 - 10.2 mg/dL See order comments 09/06/2024 8:53 AM EST 09/06/2024 8:53 AM EST Nelson Knowles MD LAB BLOOD ORDERABLES Final Re sult [place] See order comments [place] [address] * (ABNORMAL) Electrolyte panel (09/06/2024 8:53 AM [...] order comments [place] [address] * ALT EXT LABS (09/01/2024) Hemoglobin A1C 5.5 4.0 - 6.0 09/01/2024 Historical Provider LAB BLOOD ORDERABLES Lizbeth l Result from Last 3 Months Insurance [facility] ([id number]) [place] [id number] [facility] ([id number]) [place] [id number] Care Teams Voice Network Engineer Relationship Specialty Start Date End Date Zeb Ca MD [address] [place] [address] PCP - General Internal Medicine 09/21/21
--- OUTSIDE RECORDS SUMMARY | 2024-09-17 14:10 | XMS_ITS | Encounter Summary ---
Author Organization [facility] Address [address] [address] Phone Care Team Providers Care Boat Painter Name Role Phone Zeb Ca MD Primary Care Provider [phone] Encounter Details Date Type Department Care Team (Late Contact Info) Description 09/06/2024 Orders Only [facility] [address] [address] Nelson Knowles MD [address] [address] Social History Tobacco Use Types [...] Office Visit [facility] [address] [place] [address] Nelson Knowles MD [address] [address] documented as of this encounter [...] ORDERABLES Final Re sult Performing Organization Address [facility] Co de Phone Number [place] See order comments [place] [address] * (ABNORMAL) Creatinine (09/06/2024 8:53 AM EST) Creatinine Serum 2.94(H) 0.5 - 1.4 mg/dL See order comments eGFR 23 See order comments Comment: Chronic Kidney Disease: ??Estimated GFR < 60 mL/min/1.73m2 Severe Kidney Disease: ??Estimated GFR < 15 mL/min/1.73m2 09/06/2024 8:53 AM EST 09/06/2024 8:53 AM EST us Nelson Knowles MD LAB BLOOD ORDERABLES Final Re sult Performing Organization Address [facility] Co de Phone Number [place] See order comments [place] [address] * (ABNORMAL) BUN (09/06/2024 8:53 AM EST) BUN 46(H) 9 - 16 mg/dL See order comments 09/06/2024 8:53 AM EST 09/06/2024 8:53 AM EST us Nelson Knowles MD LAB BLOOD ORDERABLES Final Re sult [place] See order comments [place] [address] * (ABNORMAL) Electrolyte panel (09/06/2024 8:53 AM [...] ORDERABLES Final Re sult Performing Organization Address [facility] Co de Phone Number [place] See order comments [place] [address] * (ABNORMAL) CBC and Differential (09/06/2024 8:53 [...] MD LAB BLOOD ORDERABLES Final Re sult [place] See order comments [place] [address] documented in this encounter Visit Diagnoses Not on filedocumented in this encounter Care Teams Boat Painter Relationship Specialty Start Date End Date Zeb Ca MD [address] [place] [address] PCP - General Internal Medicine 09/21/21 documented as of this encounter
--- OUTSIDE RECORDS SUMMARY | 2024-09-17 14:10 | XMS_ITS | Encounter Summary ---
Author Organization [facility] Address [address] [place] [address] Care Team Providers Care Chocolate Refining Roller Name Role Phone Zeb Ca MD Primary Care Provider + [phone] Reason for Referral * Consultation (Routine) - Authorized Specialty Diagnoses / Procedures Referred By Tai pate Referred To Contact Physical Therapy Diagnoses Tendonitis, Achilles, left Michael Mercedes DPM [address] [address] Phone: tel: fax: Referral ID Status Reason Start Date Expiration Date Visits Requested Visits Authorized [id number] Authorized Specialty Services Required 09/08/2024 09/08/2025 20 20 Reason for Visit * Reason Comments Follow-up Diabetic foot exam Encounter Details Date Type Department Care Team (Late st Contact Info) Description 09/08/2024 10:15 AM EST Office Visit Orthopedic Surgery - [place] [address] [address] Michael Mercedes DPM [address] [address] Tendonitis, Achilles, left (Primary Dx); Follow-up exam; [...] Info) Description 09/29/2024 12:30 PM EST Evaluation [address] [address] Nicole Eubanks, PT 12/06/2024 10:15 AM EDT Office Visit Orthopedic Surgery - [place] [address] [phone] Michael Mercedes, DPM [address] [address] Scheduled Referrals Name Type Priority Associated Diagnoses [...] 09/08/2024 documented in this encounter Care Teams Chocolate Refining Roller Relationship Specialty Start Date End Date Zeb Ca MD [address] [place] [address] PCP - General Internal Medicine 05/07/24 documented as of this encounter
--- OUTSIDE RECORDS SUMMARY | 2024-09-17 14:10 | XMS_ITS | Clinical Summary ---
Author Organization [address] [facility] Address [address] [place] [address] Phone Care Team Providers Care Salad Bar Clerk Name Role Phone Zeb Ca MD Primary Care Provider + [phone] Allergies No known active allergies Medications albuterol [...] AM EST Office Visit Orthopedic Surgery - [address] [phone] Michael Mercedes, DPM Tendonitis, Achilles, left (Primary [...] Info) Description 09/29/2024 12:30 PM EST Evaluation [facility] [place] [address] [phone] Nicole Eubanks PT 12/06/2024 10:15 AM EDT Office Visit Orthopedic Surgery - [place] [address] [facility] [address] [place] [phone] Michael Mercedes, DPM 175 [facility] [address] [place] [address] Health Maintenance Due Date Last Done Comments Diabetes: Annual GFR (Glomerular Filtration Rate) 1971 Diabetes: Annual Foot Exam 1981 Diabetes: Annual Retina Eye Exam 1981 Hepatitis B Vaccines (1 of 3 - 19+ 3-dose series) 1990 Pneumococcal Vaccine: 50+ Years (2 of 2 - PCV) 05/03/2020 05/03/2019, 02/01/2016 Pneumococcal Vaccine: Pediatrics (0 to 5 Years) [...] patient's age to complete this topic Meningococcal B Vacine Aged Out No lo nger eligible based on patient's age to complete this topic RSV Immunization Patients Under 20 months Aged Out No longer eligible based on patient's age to complete this topic Varicella Vaccines Aged Out No longer eligible based on patient's age to complete this topic Insurance [facility] MEDICARE Member Subscriber Plan / Payer (Ef fective 2015-Present) Name:Shaheen Munoz Relation to Subscriber:Self Name:Shaheen Munoz Payer ID:[id number] Group ID:[id number] Type:Not on file Address: [address] [place] [address] Care Teams Salad Bar Clerk Relationship Specialty Start Date End Date Zeb Ca MD [address] [place] [address] [address] CHELA Cevallos PCP - General Internal Medicine 05/07/24
[2024-09-17 15:01] LABS: Lactic Acid 0.5 mmol/L (0.5-2.0)
[2024-09-17 18:41] VITALS: BP 141/76; PULSE 68; RESP 18; TEMP 36.7; O2SAT 98
--- NOTE | 2024-09-17 18:42 | PC.NURSE ---
pt a&ox3, vss, pt awaiting pt eval, report given to overflow pt to go to overflow for the night. plan of care ongoing
[2024-09-18 06:46] VITALS: BP 120/64; PULSE 64; RESP 16; TEMP 37; O2SAT 97
--- NOTE | 2024-09-18 08:33 | MHC.EDTECH ---
Patient ate 100% of breakfast. Call kim placed within reach.
[2024-09-18 09:03] VITALS: BP 120/64; PULSE 64; O2SAT 97
--- NOTE | 2024-09-18 09:35 | MHC.CM.PN ---
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 HE SAYS HE ALSO DOES NOT HAVE MUCH FOOD AT HOME CM OFFERED JAIL PLACEMENT IN A SNF, HOWEVER PT STATES HE HAS A CAT AT HOME AND HAS TO PAY HIS BILLS HE STATES HE WOULD LIKE TO GO HOME BUT THE BUSES ARE NOT RUNNING TO HIS AREA CM INFORMED HIM LYFT TRANSPORT COULD BE ARRANGED PT WILL RETURN HOME TODAY WITH SANDWICHES, SNACKS AND A PLAN TO GO TO THE FOOD PANTRY NEAR HIS HOME AND FOLLOW UP WITH HIS [facility] CM FRIDAY LYFT TRANSPORT ARRANGED FOR 1030 HOURS
[2024-09-18 09:39] VITALS: BP 129/82
[2024-09-18] MEDS: lisinopriL 2.5 MG TABLET PO (09:39)
[2024-09-18] MEDS: FLUoxetine HCl 20 MG CAPSULE 40 MG PO (09:39)
[2024-09-18] MEDS: Levothyroxine Sodium 125 MCG TABLET PO (09:41)
[2024-09-18] MEDS: ARIPiprazole 5 MG TABLET PO (09:41)
[2024-09-18] MEDS: lamoTRIgine 100 MG TABLET 200 MG PO (09:42)
[2024-09-18] MEDS: Zonisamide 100 MG CAPSULE PO (09:42)
[2024-09-18 09:53] VITALS: BP 129/82; PULSE 80; RESP 16; TEMP 36.8; O2SAT 97
[2024-09-18] MEDS: Sodium Bicarbonate 650 MG TABLET PO (10:20)
[2024-09-18] MEDS: Acetaminophen 325 MG TABLET 650 MG PO (10:20)
[2024-09-18 10:28] VITALS: BP 129/82; PULSE 80; RESP 16; TEMP 36.8; O2SAT 97
== END 2024-09-18 10:36 | disposition home or self-care (01) ==
PROVIDERS: Registered Nurse Emergency; Emergency Provider Emergency Medicine; PCP Internal Medicine
DX: S19.9XXA Unspecified injury of neck, initial encounter (principal); S01.512A Laceration without foreign body of oral cavity, initial encounter; M54.6 Pain in thoracic spine; R51.9 Headache, unspecified; R26.81 Unsteadiness on feet; R07.89 Other chest pain; W18.30XA Fall on same level, unspecified, initial encounter; Y93.9 Activity, unspecified; Y92.9 Unspecified place or not applicable; Y99.8 Other external cause status; Z91.81 History of falling; Z79.899 Other long term (current) drug therapy
CPT/HCPCS: 36415; 70450; 72125; 72128; 80053; 83605; 83735; 85025; 97161; 99284

== ENCOUNTER 2024-09-20 10:22 | Emergency (ER) | payer OTHER, SELFPAY ==
[2024-09-20 10:28] VITALS: BP 140/86; PULSE 84; O2SAT 97
--- NOTE | 2024-09-20 10:35 | ED.FALL ---
HPI - Fall General Chief Complaint: Fall Stated Complaint: FALL Time Seen by Provider: 09/20/24 10:26 Source: patient, EMS and old records reviewed Mode of arrival: EMS Limitations: no limitations History of Present Illness ED Provider: SHERRI HPI Narrative: 54 yo male with PMH of low back pain, polycystic kidney disease, hypothyroidism, seizures, difficulty walking who refuses to use a walker, food insecurity, CKD, prolonged qT, IBS, GERD, HLD, HTN, schizoaffective disorder, not on blood thinners just seen 3 times this month for fall on ice refuses to use a walker and refuses rehab here AGAIN with fall in snow but no injuries and I see no signs of trauma on exam. He just had multiple CT scans of head last week for the same complaint. He is hypersexual, hyperverbal, he is talking to someone on the phone but I see no signs that there is actually someoneon on the other end. At this time he tried to expose himself to our staff. 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) Fall from: standing Fall witnessed: no Place fall occurred: street Loss of consciousness: none Prolonged down time: no Symptoms prior to fall: none Context: history of frequent falls Location of injury: other (HE DENIES he states he does not have back pain and that he did not injure it) Associated symptoms (after fall): denies Related Data Home Medications ?Medication ?Instructions ?Recorded ?Confirmed lamotrigine 200 mg tablet 200 mg PO BID 05/08/20 09/20/24 (Lamictal) trazodone 50 mg tablet 50 mg PO BEDTIME PRN Insomnia 05/08/20 09/20/24 aripiprazole 5 mg tablet 5 mg PO DAILY 12/03/21 09/20/24 dapagliflozin propanediol 10 mg 10 mg PO DAILY 07/30/22 09/20/24 tablet (Farxiga) fluoxetine 40 mg capsule 40 mg PO DAILY 12/18/23 09/20/24 melatonin 5 mg tablet 5 mg PO BEDTIME 12/18/23 09/20/24 zonisamide 100 mg capsule 100 mg PO QID 12/18/23 09/20/24 sodium zirconium cyclosilicate 10 10 g PO MOWEFR@0900 04/15/24 09/20/24 gram oral powder packet (Lokelma) sodium bicarbonate 650 mg tablet 650 mg PO QID 05/06/24 09/20/24 ergocalciferol (vitamin D2) 1,250 1,250 mcg PO WE@0900 07/18/24 09/20/24 mcg (50,000 unit) capsule fluticasone propionate 220 1 puff PO BID 07/18/24 09/20/24 mcg/actuation HFA aerosol inhaler levothyroxine 125 mcg tablet 125 mcg PO DAILY@0600 07/18/24 09/20/24 Previous Rx's ?Medication ?Instructions ?Recorded rosuvastatin 5 mg tablet 5 mg PO DAILY #90 tabs 05/28/24 omeprazole 20 mg capsule,delayed 20 mg PO DAILY #90 caps 08/05/24 release albuterol sulfate 90 mcg/actuation 2 puff inhalation Q4H PRN wheezing 08/13/24 aerosol inhaler #8.5 grams omega 3-bfq-zqh-fish oil 1,200 mg 1 cap PO DAILY #90 caps 09/09/24 (144 mg-216 mg) capsule (Fish Oil) Allergies Allergy/AdvReac Type Severity Reaction Status Date / Time atorvastatin AdvReac Intermediate elevated Verified 09/20/24 10:39 LFTs Review of Systems Review of Systems: Constitutional : No Fever, No Chills, No Fatigue ENT/Mouth : No sore throat, No Rhinorrhea Eyes: No Eye Pain, No Swelling, No Redness Cardiovascular : No Chest Pain, No SOB, No Dyspnea on Exertion Respiratory : No Cough, No Sputum Gastrointestinal : No Nausea, No Vomiting, No Diarrhea, No abdominal Pain Genitourinary : No Dysuria, No Urinary Frequency, No Hematuria, Musculoskeletal : No joint pain, No Myalgias, No Joint Swelling Skin : No Skin Lesions, No rash Neuro : No Weakness, No Numbness, No Dizziness, no Headache Psych : No Anxiety/Panic, No Depression All other systems reviewed and are negative [facility] Past Medical History Attestation statement: The following information was validated with the patient. 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 Mother Hypertension Social History Social History Household Members: None Housing: House Do you presently have visiting nurse or other home services: Yes (Medication administration) Alcohol intake: former Comment: pt med with tylenol Patient Tobacco Use Status: Former Tobacco user Tobacco use type: Cigarette Smoked in Last 30 Days: No e-Cigarette/Vaping Use: Never Used Second Hand Smoke Exposure: No Use of substances other than those prescribed or required for medical reasons: No Advance Directives: No Advance Directives Information Provided: No Do you have a plan to hurt others: No Plan service: No Current occupational status: disabled 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 Oriented X3. No acute distress. hyperverbal, tried to expose himself to female staff, he is talking to his phone but no one is there. He was seen last week and 3 times this week and he seems acutely decompensated. Eyes: Pupils equal, round and reactive to light. ENT: Pharynx normal. atraumatic no signs of trauma Neck: Normal inspection. Neck supple. CVS: Normal heart rate and rhythm. Pulses normal. Respiratory: No respiratory distress. Breath sounds normal. Abdomen: Soft and nontender. Back: no ttp on back and no step offs Skin: Skin warm and dry. Normal skin color. Normal skin turgor. Extremities: No lower extremity edema. No calf ttp Neuro: Oriented X 3. No motor deficit. No sensory deficit. CN2-12 intact Medical Decision Making Medical Decision Making [facility] Narrative: 54 yo male with PMH of low back pain, polycystic kidney disease, hypothyroidism, seizures now here with reported additional fall without trauma he just had multiple neg CT head/cspine from recent falls and I see no trauma on his person. I am going to observe him but I am worried about his mental health he has a hx of schizoaffective disorder - he is hyperverbal seems to be responding to internal stimuli - labs and CARE team consult Differential Diagnosis Differential Diagnoses: The differential diagnosis associated with the presentation includes decompensation, gait instability, drug use Admission/Observation Consideration of admission/observation: Escalation of care including admission/observation considered physician observation started 1148am pending CARE team observation ended 203pm per CARE team and his mom he is okay and there is no reason to hold him they have cleared him for DC Consult Healthcare Provider Management of the patient was discussed with: Behavioral Health Provider Lab Data [facility] Lab Attestation statement: I reviewed the patient's lab results. Independent Historian Clinical information obtained from an independent historian. History obtained from or confirmed by: EMS External Record Review External record reviewed: Inpatient record and Outpatient record Discharge Plan Discharge Clinical Impression: Recurrent falls Patient Disposition: Home, Self-Care Instructions: Fall Prevention (ED) Additional Instructions: return for any worsening symptoms or concerns follow up with your outpatient providers Prescriptions: No Action rosuvastatin 5 mg tablet 5 mg PO DAILY Qty: 90 1RF omeprazole 20 mg capsule,delayed release(DR/EC) 20 mg PO DAILY Qty: 90 2RF albuterol sulfate 90 mcg/actuation HFA aerosol inhaler 2 puff inhalation Q4H PRN (Reason: wheezing) Qty: 8.5 3RF omega 1-qcv-xlr-fish oil [Fish Oil] 1,200 (144-216) mg capsule 1 cap PO DAILY Qty: 90 3RF levothyroxine 125 mcg tablet 125 mcg PO DAILY@0600 fluticasone propionate [Flovent HFA] 220 mcg/actuation HFA aerosol inhaler 1 puff PO BID ergocalciferol (vitamin D2) 1,250 mcg (50,000 unit) capsule 1,250 mcg PO WE@0900 lamotrigine [Lamictal] 200 mg tablet 200 mg PO BID trazodone 50 mg tablet 50 mg PO BEDTIME PRN (Reason: Insomnia) zonisamide 100 mg capsule 100 mg PO QID Farxiga 10 mg tablet 10 mg PO DAILY aripiprazole 5 mg tablet 5 mg PO DAILY melatonin 5 mg tablet 5 mg PO BEDTIME fluoxetine 40 mg capsule 40 mg PO DAILY Lokelma 10 gram powder in packet 10 g PO MOWEFR@0900 sodium bicarbonate 650 mg tablet 650 mg PO QID Print Language: Tajik
[2024-09-20 10:36] VITALS: BP 119/70; PULSE 72; RESP 16; TEMP 36.4; O2SAT 95; BMI 27.2
--- NOTE | 2024-09-20 11:20 | PC.NURSE ---
ths nurse assumed care of pt at 1100, pt comes in via ems s/p fall- pt requests this nurse to look at his junk motioning towards his groin. pt not answering if he is experiencing pain in area. pt sts you're supposed to do a thorough assessment . notified
--- NOTE | 2024-09-20 11:31 | PC.NURSE ---
pt refusing lab work at this time sts I'm not doing bloodwork notified
--- NOTE | 2024-09-20 12:02 | PC.NURSE ---
security at bedside assisting with changeover- pt placed under sec 12 per MD Franco
[2024-09-20 12:20] VITALS: RESP 16
--- NOTE | 2024-09-20 12:23 | PC.NURSE ---
patient brought over to pod at 1210, patient originally agitated, stating that he does not need to be here, refusing to give up his watch. This RN sat down with patient and explained the process of being seen. patient continues to be agitated, frustrated that he is not being seen immediately. This RN again validated his feelings but explained that it is a process that takes time, patient expressed displeasure with this. Patient did willingly give watch to this RN after some more conversation. Patient refusing blood draws, refusing to give urine. reporting that he is not registered here . patient is alert and oriented x4 though, understands who he is, where he is, what day it is, why he is here and what the situation is that led him here. He reports multiple falls recently due to slips and falls on ice, denies headstrike, denies any injury other body parts
--- NOTE | 2024-09-20 12:42 | MHC.EDTECH ---
This tech attempted to obtain ordered blood work. Patient agitated and uncooperative, unable to deescalate patient. Patient states You're holding me agains my will, this is illegal, I am not registered and I am not a patient, I would like my one phone call. This tech explained that there was a phone outside his door that he could call as many people as he would like, but that we would still need to collect his blood so that he can be medically cleared. Patient still refusing. RN aware
[2024-09-20 14:57] VITALS: BP 106/84; PULSE 67; RESP 16; TEMP 37.2; O2SAT 97
== END 2024-09-20 14:59 | disposition home or self-care (01) ==
PROVIDERS: Emergency Provider Emergency Medicine; PCP Internal Medicine
DX: F25.9 Schizoaffective disorder, unspecified (principal); Z87.891 Personal history of nicotine dependence; Z91.81 History of falling
CPT/HCPCS: 99284; S9485

== ENCOUNTER 2024-09-28 08:07 | Outpatient (REF) | payer OTHER, SELFPAY ==
--- OUTSIDE RECORDS SUMMARY | 2024-09-28 08:18 | XMS_ITS | Encounter Summary ---
Author Organization [facility] Address [address] [address] Phone Care Team Providers Care Mailroom Supervisor Name Role Phone Zeb Ca MD Primary Care Provider [phone]- [phone] Encounter Details Date Type Department Care Team (Late Contact Info) Description 06/16/2024 Office Communication [facility] [address] [address] Nelson Knowles MD [address] [address] Social History Tobacco Use Types [...] Office Visit [facility] [address] [place] [address] Nelson Knowles MD [address] [address] documented as of this encounter Visit Diagnoses Not on filedocumented in this encounter Care Teams Mailroom Supervisor Relationship Specialty Start Date End Date Zeb Ca MD [address] [place] [id number] PCP - General Internal Medicine 09/21/21 documented as of this encounter
--- OUTSIDE RECORDS SUMMARY | 2024-09-28 08:19 | XMS_ITS | Clinical Summary ---
Author Organization 175 [facility] Address [address] [place] [address] Phone Care Team Providers Care Corrugator Operator Helper Name Role Phone Zeb Ca MD Primary Care Provider + [phone] Allergies No known active allergies Medications albuterol [...] AM EST Office Visit Orthopedic Surgery - [address] [phone] Michael Mercedes, DPM Tendonitis, Achilles, left (Primary [...] Info) Description 09/29/2024 12:30 PM EST Evaluation [facility] [place] [address] [address] Nicole Eubanks PT 12/06/2024 10:15 AM EDT Office Visit Orthopedic Surgery - [place] [address] [facility] [address] [place] [phone] Michael Mercedes, DPM 175 [facility] [address] [place] [address] Health Maintenance Due Date Last Done Comments [...] patient's age to complete this topic Insurance [facility] MEDICARE Member Subscriber Plan / Payer (Ef fective 2015-Present) Name:Shaheen Munoz Relation to Subscriber:Self Name:Shaheen Munoz Payer ID:[id number] Group ID:[id number] Type:Not on file Address: [address] [place] [id number] Care Teams Corrugator Operator Helper Relationship Specialty Start Date End Date Zeb Ca MD [address] [place] [address] [address] [place] PCP - General Internal Medicine 05/07/24
--- OUTSIDE RECORDS SUMMARY | 2024-09-28 08:19 | XMS_ITS | Clinical Summary ---
Author Organization [facility] Address [address] [place] [address] Phone Care Team Providers Care Hand Rigger Name Role Phone Zeb Ca MD Primary Care Provider [phone]- [phone] Allergies No known active allergies Medications zonisamide [...] diskus inhaler Activ e ergocalciferol 1.25 MG (64377 UT) capsule Take 1 capsule by mouth [...] Orders Only [facility] [address]. [address] [place] [phone] Nelson Knowles MD 08/01/2024 Refill [facility] [address] [address] Nelson Knowles MD 07/29/2024 Refill [facility] [address] [place] [address] Nelson Knowles MD from Last 3 Months [...] Visit [facility] [address] [place] [address] Nelson Knowles MD [address] [facility] [address] [place] [address] Health Maintenance Due Date Last [...] * (ABNORMAL) Creatinine (09/06/2024 8:53 AM EST) Pathologist [facility] Creatinine Serum 2.94(H) 0.5 - 1.4 mg/dL See order comments eGFR 23 See order comments Comment: Chronic Kidney Disease: ??Estimated GFR < 60 mL/min/1.73m2 Severe Kidney Disease: ??Estimated GFR < 15 mL/min/1.73m2 09/06/2024 8:53 AM EST 09/06/2024 8:53 AM EST us Nelson Knowles MD LAB BLOOD ORDERABLES Final Re sult [place] See order comments [place] [address] * (ABNORMAL) CBC and Differential (09/06/2024 8:53 AM EST) Pathologist [facility] WBC 7.0 4.8 - 10.8 X10*3/uL See [...] AM EST 09/06/2024 8:53 AM EST Nelson Knwoles MD LAB BLOOD ORDERABLES Final Re sult Performing Organization Address [facility] Co de Phone Number [place] See order comments [place] [address] * (ABNORMAL) BUN (09/06/2024 8:53 AM EST) BUN 46(H) 9 - 16 mg/dL See order comments 09/06/2024 8:53 AM EST 09/06/2024 8:53 AM EST Nelson Knowles MD LAB BLOOD ORDERABLES Final Re sult Performing Organization Address [facility] Co de Phone Number [facility] See order comments [place] [address] * Calcium (09/06/2024 8:53 AM EST) Calcium 8.7 8.4 - 10.2 mg/dL See order comments 09/06/2024 8:53 AM EST 09/06/2024 8:53 AM EST us Nelson Knowles MD LAB BLOOD ORDERABLES Final Re sult Performing Organization Address [facility]/ZIP Co de Phone Number [facility] See order comments [place] [address] * (ABNORMAL) Electrolyte panel (09/06/2024 8:53 AM [...] order comments [place] [address] * ALT EXT LABS (09/01/2024) Hemoglobin A1C 5.5 4.0 - 6.0 09/01/2024 [facility] Provider LAB BLOOD ORDERABLES Lizbeth l Result from Last 3 Months Insurance [facility] ([id number]) [facility] ([id number]) [place] [phone] Care Teams Hand Rigger Relationship Specialty Start Date End Date Zeb Ca MD [address] [place] [address] PCP - General Internal Medicine 09/21/21
--- OUTSIDE RECORDS SUMMARY | 2024-09-28 08:19 | XMS_ITS | Encounter Summary ---
Author Organization [facility] Address [address] [address] Phone Care Team Providers Care Revit Drafter Name Role Phone Zeb Ca MD Primary Care Provider [phone] Encounter Details Date Type Department Care Team (Late Contact Info) Description 09/06/2024 Orders Only [facility] [address] [address] Nelson Knowles MD [address] [address] Social History Tobacco Use Types [...] Office Visit [facility] [address] [place] [address] Nelson Knowles MD [address] [address] documented as of this encounter [...] ORDERABLES Final Re sult Performing Organization Address [facility] Co de Phone Number [place] See order comments [place] [address] * (ABNORMAL) Creatinine (09/06/2024 8:53 AM EST) Creatinine Serum 2.94(H) 0.5 - 1.4 mg/dL See order comments eGFR 23 See order comments Comment: Chronic Kidney Disease: ??Estimated GFR < 60 mL/min/1.73m2 Severe Kidney Disease: ??Estimated GFR < 15 mL/min/1.73m2 09/06/2024 8:53 AM EST 09/06/2024 8:53 AM EST us Nelson Knowles MD LAB BLOOD ORDERABLES Final Re sult Performing Organization Address [facility] Co de Phone Number [place] See order comments [place] [address] * (ABNORMAL) BUN (09/06/2024 8:53 AM EST) BUN 46(H) 9 - 16 mg/dL See order comments 09/06/2024 8:53 AM EST 09/06/2024 8:53 AM EST us Nelson Knowles MD LAB BLOOD ORDERABLES Final Re sult [place] See order comments [place] [address] * (ABNORMAL) Electrolyte panel (09/06/2024 8:53 AM [...] ORDERABLES Final Re sult Performing Organization Address City/[facility] Co de Phone Number [place] See order comments [place] [address] * (ABNORMAL) CBC and Differential (09/06/2024 8:53 [...] MD LAB BLOOD ORDERABLES Final Re sult [place] See order comments [place] [address] documented in this encounter Visit Diagnoses Not on filedocumented in this encounter Care Teams Revit Drafter Relationship Specialty Start Date End Date eZb Ca MD [address] [place] [address] PCP - General Internal Medicine 09/21/21 documented as of this encounter
--- OUTSIDE RECORDS SUMMARY | 2024-09-28 08:19 | XMS_ITS | Encounter Summary ---
Author Organization [facility] Address [address] [place] [address] Care Team Providers Care Napper Tender Name Role Phone Zeb Ca MD Primary Care Provider + [phone] Reason for Referral * Consultation (Routine) - Authorized Specialty Diagnoses / Procedures Referred By Tai pate Referred To Contact Physical Therapy Diagnoses Tendonitis, Achilles, left Michael Mercedes DPM [address] [address] Phone: tel: fax: Referral ID Status Reason Start Date Expiration Date Visits Requested Visits Authorized [id number] Authorized Specialty Services Required 09/08/2024 09/08/2025 20 20 Reason for Visit * Reason Comments Follow-up Diabetic foot exam Encounter Details Date Type Department Care Team (Late st Contact Info) Description 09/08/2024 10:15 AM EST Office Visit Orthopedic Surgery - [place] [address] [address] Michael Mercedes DPM [address] [address] Tendonitis, Achilles, left (Primary Dx); Follow-up exam; [...] Info) Description 09/29/2024 12:30 PM EST Evaluation [address] [address] Nicole Eubanks, PT 12/06/2024 10:15 AM EDT Office Visit Orthopedic Surgery - [place] [address] [phone] Michael Mercedes, DPM [address] [address] Scheduled Referrals Name Type Priority Associated Diagnoses [...] 09/08/2024 documented in this encounter Care Teams Napper Tender Relationship Specialty Start Date End Date Zeb Ca MD [address] [place] [address] PCP - General Internal Medicine 05/07/24 documented as of this encounter
[2024-09-28 08:27] LABS: MANUAL DIFF FLAG NO
[2024-09-28 09:06] LABS: Basophils Percent Auto 0.5 % (0-2); Eosinophils Absolute Auto 0.1 X10*3/uL (0.0-0.4); Eosinophils Percent Auto 1.8 % (0-4); Hematocrit 37.3 % (42.0-52.0); Imm Gran Abs Auto 0.03 X10*3/uL (0.00-0.03); Imm Gran Pct Auto 0.5 % (0.0-0.4); Lymphocytes Absolute Auto 1.3 X10*3/uL (1.2-4.9); Lymphocytes Percent Auto 21.2 % (20-40); Mean Corpuscular HGB Conc 32.2 g/dl (31.0-36.0); Mean Corpuscular Hemoglobin 29.8 pg (27.0-33.0); Mean Corpuscular Volume 92.6 fL (80.0-98.0); Mean Platelet Volume 9.2 fL (9.4-12.4); Monocytes Absolute Auto 0.4 X10*3/uL (0.1-1.2); Monocytes Percent Auto 5.7 % (2-11); Neutrophils Absolute Auto 4.4 x10*3/uL (2.0-8.3); Neutrophils Percent Auto 70.3 % (45-73); Platelet Count 221 X10*3/uL (160-400); Red Blood Count 4.03 X10*6/uL (4.60-5.80); Red Cell Distribution Width 13.2 % (11.0-16.0); White Blood Count 6.2 X10*3/uL (4.8-10.8)
[2024-09-28 09:18] LABS: Estimated Average Glucose 108 mg/dL; Hemoglobin A1C 114.9162 umol/L; Hemoglobin A1c % 5.4 % (<6.0)
[2024-09-28 09:19] LABS: Appearance Urine Clear; Color Urine Yellow; Glucose Urine UA 500 mg/dL (Negative); Leukocyte Esterase Urine Negative (Negative); Nitrite Urine Negative (Negative); Urine Blood Negative (Negative); Urine Ketones Negative (Negative); Urine Protein Negative (Neg-Trace)
[2024-09-28 09:44] LABS: Alanine Aminotransferase 34 U/L (0-40); Albumin Level 4.4 g/dL (3.5-5.0); Alkaline Phosphatase 200 U/L (39-117); Anion Gap 12 (12-20); Aspartate Amino Transferase 28 U/L (5-37); Bilirubin Total 0.3 mg/dL (0.0-1.0); Blood Urea Nitrogen 53 mg/dL (9-16); Calcium 9.2 mg/dL (8.4-10.2); Carbon Dioxide 22 mmol/L (22-29); Chloride 112 mmol/L (96-108); Cholesterol 130 mg/dL (<200); Estimated Glomerular Filt Rate 22; Glucose Fasting 100 mg/dL (60-99); HDL Cholesterol 38 mg/dL (>40); LDL Cholesterol Calculated 70 mg/dL (<100); Potassium 5.3 mmol/L (3.3-5.1); Sodium 141 mmol/L (135-145); Total Protein 7.6 g/dL (6.5-8.0); Triglycerides 111 mg/dL (<150)
[2024-09-28 09:48] LABS: Creatinine Urine 37.92 mg/dL; Microalbum/Creatinine Ratio Ur 76.4 ug/mg cr (<30)
[2024-09-28 10:03] LABS: Free T4 (Free Thyroxine) 1.05 ng/dL (0.71-1.85)
[2024-09-28 10:08] LABS: Folate 14.6 ng/mL (> or = 4.0); Vitamin B12 949 pg/mL (200-900)
[2024-09-28 10:32] LABS: Parathyroid Hormone Intact 294.8 pg/mL (8.7-77.1)
== END 2024-09-28 08:08 | disposition home or self-care (01) ==
LOC: HO.LAB 08:07
PROVIDERS: PCP Internal Medicine; Visit Provider Internal Medicine
DX: E78.00 Pure hypercholesterolemia, unspecified (principal); E55.9 Vitamin D deficiency, unspecified; E03.9 Hypothyroidism, unspecified; E53.8 Deficiency of other specified B group vitamins; E11.9 Type 2 diabetes mellitus without complications; D64.9 Anemia, unspecified; R30.0 Dysuria; E83.52 Hypercalcemia
CPT/HCPCS: 36415; 80053; 80061; 81003; 82043; 82306; 82570; 82607; 82746; 83036; 83970; 84439; 84443; 85025

== ENCOUNTER 2024-09-30 09:29 | Outpatient (AMB) | payer OTHER, SELFPAY ==
[2024-09-30 10:10] VITALS: BP 100/62; PULSE 44; O2SAT 99; BMI 28.8
--- NOTE | 2024-09-30 10:10 | MHC.PC.OV ---
Vital Signs 09/30/24 10:10 Height 5 ft 9 in Weight 195 lb 4 oz BMI 28.8 BP 100/62 Blood Pressure Location Lt brachial Position Sitting Pulse 44 L Pulse Source Pulse Oximeter Pulse Oximetry (%) 99 Oxygen Delivery Method Room Air Intake Visit Reasons: [facility] Camelid Fiber Sorter Required: No Accompanied by: Self / Same As Patient Allergies atorvastatin Adverse Reaction (Intermediate, Verified 09/30/24 10:49) elevated LFTs Medication List - Last Reconciled 09/30/24 by Zeb Ca MD albuterol sulfate 90 mcg/actuation 2 puffs inhalation Q4H PRN aripiprazole 5 mg PO DAILY dapagliflozin propanediol (Farxiga) 10 mg PO DAILY ergocalciferol (vitamin D2) 1,250 mcg PO WE@0900 fluoxetine 40 mg PO DAILY fluticasone propionate 220 mcg/actuation 1 puff PO BID lamotrigine (Lamictal) 200 mg PO BID levothyroxine 125 mcg PO DAILY@0600 melatonin 5 mg PO BEDTIME omega 6-mxt-tbe-fish oil 1,200 (144-216) mg (Fish Oil) 1 cap PO DAILY omeprazole 20 mg PO DAILY rosuvastatin 5 mg PO DAILY sodium bicarbonate 650 mg PO QID sodium zirconium cyclosilicate (Lokelma) 10 grams PO MOWEFR@0900 trazodone 50 mg PO BEDTIME PRN zonisamide 100 mg PO QID Tobacco use date assessed: 09/30/24 Dental Screening Dental Screen Date: 09/30/24 Did you have a dental visit in the last 12 months?: No Did you have a dental problem in the last 6 months where you did not have access to dental care?: No Was dental information given to patient?: Patient has dentist HPI [facility] low HPI Details Patient comes in today for his follow-up visit States that he has not been able to get his diabetes medications for the past couple of month now as he has not been able to get his benefits/money as well as food States that he is being required to provide proof of his identity before his benefits can be renewed and he is not able to do so States that he needs to produce a certificate but as he was born in [place], he is unable to produce one States that he has been estranged from his family in [place] for many years now and does not have anybody there he can reach out to for help Relates that he has tried everything he can think of without any success and was advised that there is no other way to get this resolved except to get a copy of his certificate and he does not really know how he is going to manage without his medications going forward Adds that the only place where he can get his food over the past week or so has been at the local food pantry States that he has been experiencing increased fatigue, urinary frequency and nocturia for over a week now He denies any headaches or dizziness Denies any chest pains, no increased shortness of breath No nausea/vomiting, no abdominal pain No change in bowel habits noted He had his follow-up labs done a few days ago - to discuss his results [facility] Medical History (Updated 10/01/24 @ 03:35 by Zeb Ca MD) Type 1 diabetes mellitus Polycystic kidney disease Lumbar spondylosis Degenerative joint disease of thoracic spine Overweight (BMI 25.0-29.9) Chronic kidney disease, stage 4 (severe) Prolonged QT interval Hyperkalemia Memory impairment Vitamin D deficiency Hypothyroidism Seizures Anxiety Fatty liver IBS (irritable colon syndrome) GERD (gastroesophageal reflux disease) Obesity (BMI 30-39.9) Schizoaffective disorder Asthma Epilepsy Essential hypertension Pure hypercholesterolemia 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 1. Little interest or pleasure in doing things: not at all 2. Feeling down, depressed, or hopeless: not at all 3. Trouble falling or staying asleep, or sleeping too much: not at all 4. Feeling tired or having little energy: not at all 5. Poor appetite or overeating: not at all 6. Feeling bad about yourself - or that you are a failure or have let yourself or your family down: not at all 7. Trouble concentrating on things, such as reading the newspaper or watching television: not at all 8. Moving or speaking so slowly that other people could have noticed. Or the opposite - being so fidgety or restless that you have been moving around a lot more than usual: not at all 9. Thoughts that you would be better off or of hurting yourself in some way: not at all Total score: 0 Depression Screening Interpretation: Negative (is on Rx) Depression Screening Done: Yes 23605 - PHQ-9 Billing: Yes Source: Developed by Drs. Emiliano Ledezma, Ashly Pat, Rohit Tilley and colleagues, with an educational danette from [employer]. Thrive Questionnaire Date Thrive assessed: 09/30/24 I am a: Patient What is your living situation today?: I have a steady place to live Within the past 12 months, did the food you bought not last and you didn't have the money to get more?: Sometimes True Within the past 12 months, did you worry whether your food would run out before you got money to buy more?: Often true Do you have trouble paying for medicines?: Yes Do you have trouble getting transportation to medical appointments?: No Do you have trouble paying your heating and electricity bill?: No Do you have trouble taking care of your child, family member or friend?: No Do you have trouble with day-to-day activities such as bathing, preparing meals, shopping, managing finances, etc.?: No Are you currently unemployed and looking for a job?: No Are you interested in more education?: No Please select the resources that you would like help with: Food Currently or been in a relationship where the following occur: No concerns reported THRIVE Score: 2 AUDIT C Alcohol Use Questionnaire (AUDIT-C) 1. How often do you have a drink containing alcohol?: Never 3. How often do you have six or more drinks on one occasion?: Never Total Score: 0 Score Reviewed/Action Taken: Yes ELEUTERIO-7 AMB Questionnaire ELEUTERIO-7 Date ELEUTERIO - 7 assessed: 09/30/24 Feeling nervous, anxious, or on edge: 0 = Not at all Not being able to stop or control worryin = Not at all Worrying too much about different things: 0 = Not at all Trouble relaxin = Not at all Being so restless that it is hard to sit still: 0 = Not at all Becoming easily annoyed or irritable: 0 = Not at all Feeling afraid as if something awful might happen: 0 = Not at all Total ELEUTERIO-7 score (0-4 normal; 5-9 mild; 10-14 moderate; 15-21 severe): 0 Source: Developed by Drs. Emiliano Ledezma, Ashly Pat, Rohit Tilley and colleagues, with an educational danette from [employer]. Review of Systems Const Denies chills, Reports fatigue, Denies fever(s) and Denies headache(s) ENT Denies dysphagia, Denies dizziness, Denies otalgia, Denies headache(s), Denies neck pain, Denies odynophagia and Denies sore throat Card Denies chest pain, Denies palpitations and Denies dyspnea Resp Denies chest congestion, Denies cough and Denies dyspnea GI Denies abdominal pain, Denies constipation, Denies dysphagia, Denies heartburn, Denies diarrhea, Denies nausea, Denies odynophagia and Denies vomiting Denies dysuria, Denies nocturia and Denies urinary frequency Musc Reports back pain (on and off), Denies arthralgias, Denies joint swelling and Denies neck pain Skin/Breast Denies rash Neuro Denies dizziness and Denies headache(s) Psych Reports anxiety and Reports depression (Rx helping) Endo Reports fatigue and Denies palpitations Physical exam (Primary Care) Vital Signs: Last Vital Signs Pulse 44 L 09/30/24 10:10 BP 100/62 09/30/24 10:10 Pulse Ox 99 09/30/24 10:10 Oxygen Delivery Method Room Air 09/30/24 10:10 BMI result Body Mass Index 28.8 Tobacco/Smoking Status: Tobacco use Status Tobacco use date assessed 09/30/24 09/30/24 10:13 Patient Tobacco Use Status Former Tobacco user 09/30/24 10:13 Tobacco use type Cigarette 09/30/24 10:13 e-Cigarette/Vaping Use Never Used 09/30/24 10:13 PHQ-9: PHQ-9 Score PHQ-9: Total score 0 09/30/24 10:53 Depression Screening Interpretation: Negative (is on Rx) Thrive Assessment: Date of Thrive Assessment Date Thrive assessed 09/30/24 09/30/24 10:13 Currently or been in a relationship where the following occur: No concerns reported Const General: no acute distress and alert HENMT Ears: TM's normal bilaterally and EAC's normal Throat: Yes posterior oropharynx normal and Yes tonsils normal (no TP congestion noted) Neck Neck: Yes supple and No lymphadenopathy Thyroid: Thyroid normal Resp Auscultation: clear to auscultation bilaterally, no rales and no wheezes Cardio Rate: regular rate Rhythm: regular rhythm Heart sounds: no murmurs GI Palpation (GI): Soft to palpation and nontender Auscultation: normal bowel sounds General: Yes no CVA tenderness Back/Spine/Pelvis Back: no CVA tenderness Thoracic/Lumbar Spine: No lumbar spinal tenderness Skin Rashes: no rashes Extrem General: Yes no clubbing, cyanosis or edema Results Reviewed Results Reviewed: Laboratory Tests 09/28/24 09/28/24 08:18 08:25 WBC 6.2 Hgb 12.0 L Hct 37.3 L Plt Count 221 Sodium 141 Potassium 5.3 H Creatinine 3.00 H Estimated GFR 22 Fasting Glucose 100 H Hemoglobin A1c % 5.4 Calcium 9.2 AST 28 ALT 34 Triglycerides 111 Cholesterol 130 LDL Cholesterol, Calc 70 HDL Cholesterol 38 L Vitamin B12 949 H 25-OH Vitamin D Total 52.0 TSH 0.60 Free T4 1.05 PTH Intact 294.8 H Ur Specific [place] 1.010 Urine Protein Negative Urine Glucose (UA) 500 H Urine Blood Negative Urine Nitrite Negative Ur Leukocyte Esterase Negative Microalb/Creat Ratio 76.4 H Coding Level of Care Code Est Pt Level 4 (54179) Diagnoses Type 1 diabetes mellitus with stage 4 chronic kidney disease E10.22; N18.4 Diabetes mellitus complication status: with kidney complications Diabetes mellitus complication detail: with chronic kidney disease Chronic kidney disease stage: stage 4 (GFR 15-29) Chronic kidney disease, stage 4 (severe) N18.4 Pure hypercholesterolemia E78.00 Hyperparathyroidism E21.3 Essential hypertension I10 Elevated LFTs R79.89 Vitamin D deficiency E55.9 Acquired hypothyroidism E03.9 Hypothyroidism type: acquired Mild intermittent asthma without complication J45.20 Asthma severity: mild Asthma persistence: intermittent Asthma complication type: uncomplicated Nonintractable epilepsy without status epilepticus, unspecified epilepsy type G40.909 Epilepsy type: unspecified Intractability: not intractable Status epilepticus: without status epilepticus Gastroesophageal reflux disease without esophagitis K21.9 Esophagitis presence: without esophagitis Schizoaffective disorder, unspecified type F25.9 Schizoaffective disorder type: unspecified Additional Codes PHQ-9 - 77664 - PHQ-9 Billing: Yes ([id number]) Assessment & Plan Assessment & Plan (1) Type 1 diabetes mellitus: Code(s): E10.9 - Type 1 diabetes mellitus without complications Category: Medical Qualifiers: Diabetes mellitus complication status: with kidney complications Diabetes mellitus complication detail: with chronic kidney disease Chronic kidney disease stage: stage 4 (GFR 15-29) Qualified Code(s): E10.22 - Type 1 diabetes mellitus with diabetic chronic kidney disease; N18.4 - Chronic kidney disease, stage 4 (severe) Plan: Patient has diabetes for years and recent testing (elevated CLAIR Ab in April 2024) indicate that he is a type 1 diabetic Reinforced diabetic diet - goal is HgbA1c of at least <7.0% His HgbA1c was at 5.4% on his labs done a couple of days ago Continue Lantus 8 units SQ Q HS and Farxiga 10 mg QD (this was started by nephrology for his CKD) Follow up with diabetic supply chain technician and with endocrinology as scheduled (2) Chronic kidney disease, stage 4 (severe): Code(s): N18.4 - Chronic kidney disease, stage 4 (severe) Category: Medical Plan: His renal function appears stable lately Continue Farxiga 10 mg QD and Lisinopril 2.5 mg QD Have emphasized again complete avoidance of all NSAIDs and tight control of his BP and blood sugar His abdominal US done in November 2023 also incidentally revealed (+) enlarged kidneys replaced by innumerable cysts consistent with autosomal dominant polycystic kidney disease and bilateral nonobstructing renal calculi (3) Pure hypercholesterolemia: Code(s): E78.00 - Pure hypercholesterolemia, unspecified Category: Medical Plan: Results of his labs done a couple of days ago reviewed and discussed with patient Reinforced low cholesterol diet Continue Rosuvastatin at 5 mg QD Will have him recheck his labs and fasting lipids in 3 months for follow-up (4) Hyperparathyroidism: Code(s): E21.3 - Hyperparathyroidism, unspecified Category: Medical Plan: His intact PTH level remains elevated and has gone up much higher than previous At this point, he will likely require parathyroidectomy but his advanced CKD may complicate his management Follow-up with endocrinology as scheduled (5) Essential hypertension: Code(s): I10 - Essential (primary) hypertension Category: Medical Plan: Reinforced low-sodium diet -? goal is systolic BP of at least 120 to 130 mm or less Continue Lisinopril 2.5 mg QD (6) Elevated LFTs: Comment: BASELINE LABS;: 03/30/2020 total bili 0.4, alk-phos is 165, AST/ALT is 27/34 11/20/23 06:50 Plt Count 219 Estimated GFR 24 Total Bilirubin 0.4 AST 134 H ALT 61 H Alkaline Phosphatase 153 H TSH 0.76 MONSE Screen NEGATIVE Anti-Mitochondrial Ab NEGATIVE Anti-Smooth Muscle Ab <20 Hepatitis A IgM Ab Nonreactive Hep Bs Antigen Negative Hep Bs Antibody NONREACTIVE Hep B Core Total Ab Nonreactive Hepatitis C Ab (EIA) Nonreactive HIV 1&2 Ab/P24 Ag 4thGn Nonreactive CURRENT LABS 11/19/2404/11/2404 14:0401:0903:57 Estimated GFR 19 Total Bilirubin 0.2 AST 17 ALT 15 Alkaline Phosphatase 137 H C-Reactive Protein 0.27 Lipase 65 MONSE Screen NEGATIVE Anti-Mitochondrial Ab NEGATIVE Anti-Smooth Muscle Ab <20 Hepatitis A IgM Ab Nonreactive Hep Bs Antigen Negative Hep Bs Antibody NONREACTIVE Hep B Core Total Ab Nonreactive Hepatitis C Ab (EIA) Nonreactive HIV 1&2 Ab/P24 Ag 4thGn Nonreactive LIVER FIBROSIS PANEL AND FERRITIN NOT OBTAINED ULTRASOUND OF THE ABDOMEN Code(s): R79.89 - Other specified abnormal findings of blood chemistry Category: Medical Plan: His LFTs have remained normal on his recent labs - this was likely due to effects of his previous statin Rx (Atorvastatin) Abdominal US done in November 2023 revealed findings consistent with hepatic steatosis Patient is advised again that losing weight will help with his LFTs (7) Vitamin D deficiency: Code(s): E55.9 - Vitamin D deficiency, unspecified Category: Medical Plan: Continue Vitamin D2 96494 units once a week (8) Hypothyroidism: Code(s): E03.9 - Hypothyroidism, unspecified Category: Medical Qualifiers: Hypothyroidism type: acquired Qualified Code(s): E03.9 - Hypothyroidism, unspecified Plan: His TFTs remained normal on his recent labs Continue Levothyroxine 125 mcg QD (9) Asthma: Code(s): J45.909 - Unspecified asthma, uncomplicated Category: Medical Qualifiers: Asthma severity: mild Asthma persistence: intermittent Asthma complication type: uncomplicated Qualified Code(s): J45.20 - Mild intermittent asthma, uncomplicated Plan: Controlled Continue Albuterol HFA 2 inhalations up to 4 times a day as needed Follow up with pulmonary as scheduled (10) Epilepsy: Code(s): G40.909 - Epilepsy, unspecified, not intractable, without status epilepticus Category: Medical Qualifiers: Epilepsy type: unspecified Intractability: not intractable Status epilepticus: without status epilepticus Qualified Code(s): G40.909 - Epilepsy, unspecified, not intractable, without status epilepticus Plan: EEG done in the past showed findings consistent with partial complex seizure - patient states that he has not had any seizures lately Continue Zonisamide 100 mg BID Follow-up with Neurology as scheduled (11) GERD (gastroesophageal reflux disease): Code(s): K21.9 - Gastro-esophageal reflux disease without esophagitis Category: Medical Qualifiers: Esophagitis presence: without esophagitis Qualified Code(s): K21.9 - Gastro-esophageal reflux disease without esophagitis Plan: Dietary restrictions reinforced Continue Omeprazole 20 mg QD (12) Schizoaffective disorder: Code(s): F25.9 - Schizoaffective disorder, unspecified Category: Medical Qualifiers: Schizoaffective disorder type: unspecified Qualified Code(s): F25.9 - Schizoaffective disorder, unspecified Plan: Continue Lamotrigine 200 mg twice a day, Zyprexa 5 mg daily at bedtime and Lorazepam 0.5 mg 3 times a day as needed Follow-up with Psychiatry as scheduled Plan Follow-up in 4 months Orders: Orders Comprehensive [place]. Panel Fast 4 Months E78.00 - Pure hypercholesterolemia, unspecified Lipid Panel 4 Months E78.00 - Pure hypercholesterolemia, unspecified TSH reflex Free T4 4 Months E78.00 - Pure hypercholesterolemia, unspecified Complete Blood Count Auto Diff 4 Months D64.9 - Anemia, unspecified UA CC w/rflx Micro + Cult 4 Months R30.0 - Dysuria Microalbumin, Random (w Creat) 4 Months E11.9 - Type 2 diabetes mellitus without complications Vitamin D 25-OH Total 4 Months E55.9 - Vitamin D deficiency, unspecified Medications: Refilled rosuvastatin 5 mg PO DAILY 90 tabs 1RF
--- OUTSIDE RECORDS SUMMARY | 2024-09-30 10:43 | XMS_ITS | Clinical Summary ---
Author Organization [address] [facility] Address [address] [place] [address] Phone Care Team Providers Care Lodge Sales Associate Name Role Phone Zeb Ca MD Primary Care Provider + [phone] Allergies No known active allergies Medications albuterol [...] AM EST Office Visit Orthopedic Surgery - [address] [phone] Michael Mercedes, DPM Tendonitis, Achilles, left (Primary [...] Care Team (Late st Contact Info) Description 10/07/2024 12:30 PM EST Evaluation [facility] - [place] [address] [phone] Nicole Eubanks PT 12/06/2024 10:15 AM EDT Office Visit Orthopedic Surgery - [place] [address] [facility] [address] [place] [phone] Michael Mercedes, DPM [address] [facility] [address] [place] [address] Health Maintenance Due Date Last Done Comments [...] patient's age to complete this topic Insurance [facility] MEDICARE Member Subscriber Plan / Payer (Ef fective 2015-Present) Name:Shaheen Munoz Relation to Subscriber:Self Name:Shaheen Munoz Payer ID:[id number] Group ID:[id number] Type:Not on file Address: [address] [place] [address] Care Teams Lodge Sales Associate Relationship Specialty Start Date End Date Zeb Ca MD [address] [place] [address] [address] [place]LA Cevallos PCP - General Internal Medicine 05/07/24
--- OUTSIDE RECORDS SUMMARY | 2024-09-30 10:43 | XMS_ITS | Encounter Summary ---
Author Organization [facility] Address [address] [place] [address] Care Team Providers Care Cook Jelly Name Role Phone Zeb Ca MD Primary Care Provider + [phone] Reason for Referral * Consultation (Routine) - Authorized Specialty Diagnoses / Procedures Referred By Tai pate Referred To Contact Physical Therapy Diagnoses Tendonitis, Achilles, left Michael Mercedes DPM [address] [address] Phone: tel: fax: Referral ID Status Reason Start Date Expiration Date Visits Requested Visits Authorized [id number] Authorized Specialty Services Required 09/08/2024 09/08/2025 20 20 Reason for Visit * Reason Comments Follow-up Diabetic foot exam Encounter Details Date Type Department Care Team (Late st Contact Info) Description 09/08/2024 10:15 AM EST Office Visit Orthopedic Surgery - [place] [address] [phone] Michael Mercedes DPM [address] [address] Tendonitis, Achilles, left (Primary Dx); Follow-up exam; [...] Info) Description 10/07/2024 12:30 PM EST Evaluation [address] [phone] Nicole Eubanks, PT 12/06/2024 10:15 AM EDT Office Visit Orthopedic Surgery - [place] [address] [phone] Michael Mercedes, DPM [address] [address] Scheduled Referrals Name Type Priority Associated Diagnoses [...] 09/08/2024 documented in this encounter Care Teams Cook Jelly Relationship Specialty Start Date End Date Zeb Ca MD [address] [place] [address] PCP - General Internal Medicine 05/07/24 documented as of this encounter
--- OUTSIDE RECORDS SUMMARY | 2024-09-30 10:43 | XMS_ITS | Encounter Summary ---
Author Organization [facility] Address [address] [address] Phone Care Team Providers Care Quality Eng Name Role Phone Zeb Ca MD Primary Care Provider [phone] Encounter Details Date Type Department Care Team (Late Contact Info) Description 06/16/2024 Office Communication [facility] [address] [phone] Nelson Knowles MD [address] [address] Social History Tobacco Use Types [...] Office Visit [facility] [address] [place] [phone] Nelson Knowles MD [address] [phone] documented as of this encounter Visit Diagnoses Not on filedocumented in this encounter Care Teams Quality Eng Relationship Specialty Start Date End Date Zeb Ca MD [address] [place] [id number] PCP - General Internal Medicine 09/21/21 documented as of this encounter
--- OUTSIDE RECORDS SUMMARY | 2024-09-30 10:43 | XMS_ITS | Encounter Summary ---
Author Organization [facility] Address [address] [address] Phone Care Team Providers Care Plastic Joint Maker Name Role Phone Zeb Ca MD Primary Care Provider +1- [phone] Encounter Details Date Type Department Care Team (Late Contact Info) Description 09/06/2024 Orders Only [facility] [address] [address] Nelson Knowles MD [address] [address] Social History Tobacco Use [...] Office Visit [facility] [address] [place] [address] Nelson Knowles MD [address] [address] documented as of this [...] Final Re sult Performing Organization Address [facility] Co de Phone Number [place] See order comments [place] [address] * (ABNORMAL) Creatinine (09/06/2024 8:53 AM EST) Creatinine Serum 2.94(H) 0.5 - 1.4 mg/dL See order comments eGFR 23 See order comments Comment: Chronic Kidney Disease: ??Estimated GFR < 60 mL/min/1.73m2 Severe Kidney Disease: ??Estimated GFR < 15 mL/min/1.73m2 09/06/2024 8:53 AM EST 09/06/2024 8:53 AM EST us Nelson Knowles MD LAB BLOOD ORDERABLES Final Re sult Performing Organization Address [facility] Co de Phone Number [place] See order comments [place] [address] * (ABNORMAL) BUN (09/06/2024 8:53 AM EST) BUN 46(H) 9 - 16 mg/dL See order comments 09/06/2024 8:53 AM EST 09/06/2024 8:53 AM EST us Nelson Knowles MD LAB BLOOD ORDERABLES Final Re sult [place] See order comments [place] [address] * (ABNORMAL) Electrolyte panel (09/06/2024 8:53 AM [...] ORDERABLES Final Re sult Performing Organization Address [facility] Co de Phone Number [place] See order comments [place] [address] * (ABNORMAL) CBC and Differential (09/06/2024 8:53 [...] MD LAB BLOOD ORDERABLES Final Re sult [place] See order comments [place] [address] documented in this encounter Visit Diagnoses Not on filedocumented in this encounter Care Teams Plastic Joint Maker Relationship Specialty Start Date End Date Zeb Ca MD [address] [place] [address] PCP - General Internal Medicine 09/21/21 documented as of this encounter
--- OUTSIDE RECORDS SUMMARY | 2024-09-30 10:43 | XMS_ITS | Clinical Summary ---
Author Organization [facility] Address [address] [place] [address] Phone Care Team Providers Care Research And Development Tester Name Role Phone Zeb Ca MD Primary Care Provider +1- [phone] Allergies No known active allergies Medications zonisamide [...] diskus inhaler Activ e ergocalciferol 1.25 MG (52319 UT) capsule Take 1 capsule by mouth [...] Orders Only [facility] [address]. [address] [place] [address] Nelson Knowles MD 08/01/2024 Refill [facility] [address] [address] Nelson Knowles MD 07/29/2024 Refill [facility] [address] [place] [address] Nelson Knowles MD from Last 3 Months [...] Visit [facility] [address] [place] [address] Nelson Knowles MD [address] [facility] [address] [place] [address] Health Maintenance Due Date Last [...] (ABNORMAL) Creatinine (09/06/2024 8:53 AM EST) Pathologist [facility] Creatinine Serum 2.94(H) 0.5 - 1.4 mg/dL See order comments eGFR 23 See order comments Comment: Chronic Kidney Disease: ??Estimated GFR < 60 mL/min/1.73m2 Severe Kidney Disease: ??Estimated GFR < 15 mL/min/1.73m2 09/06/2024 8:53 AM EST 09/06/2024 8:53 AM EST us Nelson Knowles MD LAB BLOOD ORDERABLES Final Re sult [place] See order comments [place] [address] * (ABNORMAL) CBC and Differential (09/06/2024 8:53 AM EST) Pathologist [facility] WBC 7.0 4.8 - 10.8 X10*3/uL See [...] ORDERABLES Final Re sult Performing Organization Address [facility] Co de Phone Number [place] See order comments [place] [address] * (ABNORMAL) BUN (09/06/2024 8:53 AM EST) BUN 46(H) 9 - 16 mg/dL See order comments 09/06/2024 8:53 AM EST 09/06/2024 8:53 AM EST Nelson Knowles MD LAB BLOOD ORDERABLES Final Re sult Performing Organization Address [facility] Co de Phone Number [facility] See order comments [place] [address] * Calcium (09/06/2024 8:53 AM EST) Calcium 8.7 8.4 - 10.2 mg/dL See order comments 09/06/2024 8:53 AM EST 09/06/2024 8:53 AM EST us Nelson Knowles MD LAB BLOOD ORDERABLES Final Re sult Performing Organization Address [facility]/ZIP Co de Phone Number [facility] See order comments [place] [address] * (ABNORMAL) Electrolyte panel (09/06/2024 8:53 AM [...] order comments [place] [address] * ALT EXT LABS (09/01/2024) Hemoglobin A1C 5.5 4.0 - 6.0 09/01/2024 [facility] Provider LAB BLOOD ORDERABLES Lizbeth l Result from Last 3 Months Insurance [facility] ([id number]) [facility] ([id number]) [place] [id number] Care Teams Research And Development Tester Relationship Specialty Start Date End Date Zeb Ca MD [address] [place] [address] PCP - General Internal Medicine 09/21/21
== END 2024-09-30 11:04 | disposition home or self-care (01) ==
PROVIDERS: PCP Internal Medicine; Visit Provider Internal Medicine
DX: I12.9 Hypertensive chronic kidney disease with stage 1 through stage 4 chronic kidney disease, or unspecified chronic kidney disease (principal); E10.22 Type 1 diabetes mellitus with diabetic chronic kidney disease; N18.4 Chronic kidney disease, stage 4 (severe); E21.3 Hyperparathyroidism, unspecified; G40.909 Epilepsy, unspecified, not intractable, without status epilepticus; F25.9 Schizoaffective disorder, unspecified; E78.00 Pure hypercholesterolemia, unspecified; R79.89 Other specified abnormal findings of blood chemistry; E55.9 Vitamin D deficiency, unspecified; E03.9 Hypothyroidism, unspecified; J45.20 Mild intermittent asthma, uncomplicated; K21.9 Gastro-esophageal reflux disease without esophagitis

== ENCOUNTER → 2024-09-30 09:29 | Outpatient (BNVA) | payer OTHER, SELFPAY | PROVIDERS: PCP Internal Medicine; Visit Provider Internal Medicine | DX: I12.9 Hypertensive chronic kidney disease with stage 1 through stage 4 chronic kidney disease, or unspecified chronic kidney disease (principal); E10.22 Type 1 diabetes mellitus with diabetic chronic kidney disease; N18.4 Chronic kidney disease, stage 4 (severe); E78.00 Pure hypercholesterolemia, unspecified; E21.3 Hyperparathyroidism, unspecified; R79.89 Other specified abnormal findings of blood chemistry; E55.9 Vitamin D deficiency, unspecified; E03.9 Hypothyroidism, unspecified; J45.20 Mild intermittent asthma, uncomplicated; K21.9 Gastro-esophageal reflux disease without esophagitis; F25.9 Schizoaffective disorder, unspecified | CPT/HCPCS: 96127; 99212 ==

== ENCOUNTER 2024-11-08 11:10 | Outpatient (AMB) | payer OTHER, SELFPAY ==
[2024-11-08 11:29] VITALS: BMI 29.0
--- NOTE | 2024-11-08 11:29 | A.OFFVIS_ITS ---
VS Expanded 11/08/24 11:29 Height 5 ft 9 in Weight 196 lb 10.437 oz BMI 29.0 Intake Visit Reasons: T2DM Allergies atorvastatin Adverse Reaction (Intermediate, Verified 09/30/24 10:49) elevated LFTs Nutrition Presentation Details: Pt presents for MNT flu for T2DM Pt reports doing well, eating a variety of foods Reports having 3 meal/day combination of starch/protein/veg Beverages: water, diet lemonade Reports physical activity has lessened Reports having 3 meals per day B: oatmeal made with water or ham/cheese sand or fast food croissant with egg/ham/hash browns, coffee L Egg sand or burger and diet lemonade D: rice/beans chicken and lettuce/tomato, diet lemonade or bowl of salad with bowl of fruit snack on fruit or crackers iwth peanut butter, chips unsalted BS Monitoring Most Recent Diabetes Results: Microalb/Creat Ratio 76.4 ug/mg cr (<30) H 09/28/24 Cholesterol 130 mg/dL (<200) 09/28/24 HDL Cholesterol 38 mg/dL (>40) L 09/28/24 Triglycerides 111 mg/dL (<150) 09/28/24 Creatinine 3.00 mg/dL (0.5-1.4) H 09/28/24 Blood Urea Nitrogen 53 mg/dL (9-16) H 09/28/24 Sodium 141 mmol/L (135-145) 09/28/24 Potassium 5.3 mmol/L (3.3-5.1) H 09/28/24 Chloride 112 mmol/L (96-108) H 09/28/24 Carbon Dioxide 22 mmol/L (22-29) 09/28/24 Calcium 9.2 mg/dL (8.4-10.2) 09/28/24 AST 28 U/L (5-37) 09/28/24 ALT 34 U/L (0-40) 09/28/24 Total Protein 7.6 g/dL (6.5-8.0) 09/28/24 Albumin 4.4 g/dL (3.5-5.0) 09/28/24 [facility] Medical History (Updated 10/01/24 @ 03:35 by Zeb Ca MD) Type 1 diabetes mellitus Polycystic kidney disease Lumbar spondylosis Degenerative joint disease of thoracic spine Overweight (BMI 25.0-29.9) Chronic kidney disease, stage 4 (severe) Prolonged QT interval Hyperkalemia Memory impairment Vitamin D deficiency Hypothyroidism Seizures Anxiety Fatty liver IBS (irritable colon syndrome) GERD (gastroesophageal reflux disease) Obesity (BMI 30-39.9) Schizoaffective disorder Asthma Epilepsy Essential hypertension Pure hypercholesterolemia 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 Cognitive needs: No Hearing needs: No Vision needs: Yes (glasses) Assessment & Plan Assessment & Plan (1) Type 2 diabetes mellitus with hyperglycemia: Code(s): E11.65 - Type 2 diabetes mellitus with hyperglycemia Category: Medical Qualifiers: Diabetes mellitus assisted insulin use: with intermediate manager use Qualified Code(s): E11.65 - Type 2 diabetes mellitus with hyperglycemia; Z79.4 - 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 principal (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 Plan: Wt: 98kg Kg ( 11/26 ) Est kcal needs as per 25kcal/kg bw: 2500 (40% carb, 30% protein/fat) Est fluid needs as per 25-30 ml/d: 2500 Est prot per day as per 1 g/kg bw: 100 Recommend fiber intake : 8-10 g per day and gradually increase to 25-28 g per day for women and 35-38 g for men or as tolerated Recommend sodium intake per day : less than 2000 mg Educated patient on: ( R = reviewed V = verbalizes understanding N/R = needs review N/A = not applicable * Food sources of carbohydrate, adequate serving sizes and its role in various health conditions: R ,v * Differences between complex carbohydrates a simple carbohydrates, role of fiber in diet: R * Lean protein sources of foods: R V * Differences between types of fats and role in diet (mono on saturated fat fatty acids, saturated fatty acids, trans fats): R V N/R * Food sources of sodium in salt and healthy modifications for heart health in kidney health: RFollo * Healthy plate method concept: R V * Physical activity: Benefits a precaution: R V N/R * Hypoglycemia protocol (rule of 15): R V N/R * Dietary prevention of Hyperglycemia: R V R/V Patient Instructions: Follow healthy plate method Have milk/dairy at least 2 cup per day continue choosing foods low in salt Coding Level of Care Code Nutr Indiv Subseq (30226) Diagnoses Type 2 diabetes mellitus with hyperglycemia, with long-term current use of insulin E11.65; Z79.4 Diabetes mellitus intermediate manager insulin use: with assisted use Time Spent (min) 30
--- OUTSIDE RECORDS SUMMARY | 2024-11-08 13:25 | XMS_ITS | Clinical Summary ---
Author Organization [facility] Address [address] [place] [address] Phone Care Team Providers Care Applications Consultant Name Role Phone Zeb Ca MD Primary Care Provider +1- [phone] Allergies No known active allergies Medications zonisamide [...] diskus inhaler Activ e ergocalciferol 1.25 MG (60255 UT) capsule Take 1 capsule by mouth [...] Orders Only [facility] [address] [address] Nelson Knowles MD from Last 3 Months [...] Visit [facility] [address] [place] [address] Nelson Knowles MD [address] [facility] [address] [place] [address] Health Maintenance Due Date Last [...] Exam 09/04/2020 Diabetes: Visual Foot Exam 09/04/2020 Diabetes: Hemoglobin A1C 11/30/2024 025, 02/06/2024, 11/06/2023, Additional history exists Influenza Vaccine (Season Ended) 2025 Procedures Procedure Name Priority Date/Time Associated Diagnosis [...] MD LAB BLOOD ORDERABLES Final Re sult [place] See order comments [place] [address] * (ABNORMAL) CBC and Differential (09/06/2024 8:53 [...] ORDERABLES Final Re sult Performing Organization Address [facility] de Phone Number [place] See order comments [place] [address] * (ABNORMAL) BUN (09/06/2024 8:53 AM EST) BUN 46(H) 9 - 16 mg/dL See order comments 09/06/2024 8:53 AM EST 09/06/2024 8:53 AM EST us Nelson Knowles MD LAB BLOOD ORDERABLES Final Re sult Performing Organization Address [facility] de Phone Number [place] See order comments [place] [address] * Calcium (09/06/2024 8:53 AM EST) Calcium 8.7 8.4 - 10.2 mg/dL See order comments 09/06/2024 8:53 AM EST 09/06/2024 8:53 AM EST us Nelson Knowles MD LAB BLOOD ORDERABLES Final Re sult Performing Organization Address [facility] de Phone Number [place] See order comments [place] [address] * (ABNORMAL) Electrolyte panel (09/06/2024 8:53 AM [...] MD LAB BLOOD ORDERABLES Final Re sult [place] See order comments [place] [address] * ALT EXT LABS (09/01/2024) Hemoglobin A1C 5.5 4.0 - 6.0 09/01/2024 us Historical Provider LAB BLOOD ORDERABLES Lizbeth l Result from Last 3 Months Insurance [facility] ([id number]) [place] [id number] [facility] ([id number]) [place] [id number] Care Teams Applications Consultant Relationship Specialty Start Date End Date Zeb Ca MD [address] [place] [address] DRIVE [address] [place] [address] PCP - General Internal Medicine 09/21/21
--- OUTSIDE RECORDS SUMMARY | 2024-11-08 13:25 | XMS_ITS | Clinical Summary ---
Author Organization 175 [facility] Address 175 [place] [address] Phone Care Team Providers Care Building Architectural Designer Name Role Phone Zeb Ca MD Primary Care Provider Allergies No known active allergies Medications albuterol [...] Encounters Date Type Department Care Team Description 11/01/2024 11:00 AM EDT Evaluation [facility] [place] [address] [facility] [address] [place] [address] Prosper De La Fuente M, PT Tendonitis, Achilles, left (Primary Dx) 09/08/2024 10:15 AM EST Office Visit Orthopedic Surgery - [place] [address] [phone] Michael Mercedes, DPM Tendonitis, Achilles, left (Primary [...] Care Team (Late st Contact Info) Description 11/10/2024 12:30 PM EDT Treatment [address] [phone] Prosper De La Fuente, PT 175 [place] [address] 11/15/2024 12:30 PM EDT Treatment [facility] [address] [phone] Jayro Powell, BILINGUAL INSTRUCTOR 11/17/2024 12:30 PM EDT Treatment [address] [phone] Jayro Powell, BILINGUAL INSTRUCTOR 11/22/2024 12:30 PM EDT Treatment [address] [phone] Jayro Powell, BILINGUAL INSTRUCTOR 11/24/2024 11:15 AM EDT Treatment [facility] [address] [phone] Prosper De La Fuente, PT 175 [place] [address] 11/29/2024 12:30 PM EDT Treatment [facility] [address] [phone] Jayro Powell, BILINGUAL INSTRUCTOR 12/01/2024 12:30 PM EDT Treatment [facility] [address] [phone] Jayro Powell, BILINGUAL INSTRUCTOR 12/06/2024 9:30 AM EDT Treatment [facility] [address] [phone] Prosper De La Fuente, PT 175 [place] [address] 12/06/2024 10:15 AM EDT Office Visit Orthopedic Surgery [facility] [address] [phone] Micheal Mercedes, DPM [address] [address] Health Maintenance Due Date Last Done Comments [...] 2024 05/12/2023, 06/03/2022, 06/19/2021, Additional history exists Diabetes: Annual Urine Albumin-Creatinine Ratio (uACR) 06/09/2024 Diabetes: Blood Sugar Control Test (HGBA1C) 06/09/2024 Hypertension/CHF/CAD Annual BMP Blood Test 06/09/2024 Influenza Vaccine (Season Ended) 2025 05/12/2023, 04/30/2022, 09/18/2021, Additional history exists HIB Vaccines Aged Out No longer eligi [...] on patient's age to complete this topic Goals Goal Patient Goal Type Associated Problems Recent Progress Patient-Stated? Author No pain General Yes Prosper De La Fuente, PT PT STG x 8 visits from 11/01/2024 General No Prosper De La Fuente, PT Note: [] Pt will increase hip abd strength to 4-/5 [] Pt will increase hip add to >3/5 [] Pt will increase ability to walk >40 min without being limited by pain [] Pt will be able to SLS x 10 sec [] Pt will report a 2/10 pain level decrease PT LTG x 15 visits from 11/01/2024 Prosper Stanley M, PT Note: [] Pt will increase walking capacity to 2 hrs Insurance [facility] MEDICARE Member Subscriber Plan / Payer (Ef fective 2015-Present) Name:Shaheen Munoz Relation to Subscriber:Self Name:Shaheen Munoz Payer ID:[id number] Group ID:[id number] Type:Not on file Address: [facility] [address] [place] [phone] MEDICAID - [place] Care Teams Building Architectural Designer Relationship Specialty Start Date End Date Zeb Ca MD [address] [place] [address] [address] [place] PCP - General Internal Medicine 05/07/24
== END 2024-11-08 11:42 | disposition home or self-care (01) ==
LOC: HO.ENCR 11:11
PROVIDERS: PCP Internal Medicine; Visit Provider Dietitian, Registered
DX: E11.65 Type 2 diabetes mellitus with hyperglycemia (principal); Z79.4 Long term (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

== ENCOUNTER → 2024-11-08 11:10 | Outpatient (BNVA) | payer OTHER, SELFPAY | PROVIDERS: PCP Internal Medicine; Visit Provider Dietitian, Registered | DX: E11.65 Type 2 diabetes mellitus with hyperglycemia (principal); Z79.4 Long term (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 | CPT/HCPCS: 97803 ==

== ENCOUNTER 2024-11-22 13:42 | Outpatient (AMB) | payer OTHER, SELFPAY ==
--- OUTSIDE RECORDS SUMMARY | 2024-11-22 13:45 | XMS_ITS | Clinical Summary ---
Author Organization 175 [facility] Address 175 [place] [address] Phone Care Team Providers Care Biomedical Engineering Internship Name Role Phone Zeb Ca MD Primary [...] Date Diagnosed Date Type 2 diabetes mellitus wit h hyperglycemia ([facility] V24, [facility] V28) 06/09/2024 Polycystic kidney disease 06/09/2024 GERD (gastroesophageal reflux disease) IBS (irritable bowel syndrome) 06/09/2024 Fatty liver 06/09/2024 Prolonged QT interval 06/09/2024 Encounters Date Type Department Care Team Description 11/15/2024 12:30 PM EDT Treatment [facility] [address] [phone] Jayro Powell, SUPERVISOR SAWMILL Tendonitis, Achilles, left (Primary Dx) 11/01/2024 11:00 AM EDT Evaluation [facility] [address] [phone] Prosper De La Fuente, PT Tendonitis, Achilles, left (Primary Dx) 09/08/2024 10:15 AM EST Office Visit Orthopedic Surgery [facility] 250 175 [facility] 250 [place] [phone] Michael Mercedes, DPM Tendonitis, Achilles, left (Primary Dx); Follow-up exam; Diabetic mononeuropathy simplex ([facility] V24, [facility] V28); Dermatophytosis of nail; Corns and callosities; Pain in toe of right foot; Pain in toe of left foot; Metatarsalgia of both feet; Type II diabetes mellitus with peripheral circulatory disorder ([facility] V24, [facility] V28) from Last 3 Months Social History Tobacco [...] Care Team (Late st Contact Info) Description 11/24/2024 11:15 AM EDT Treatment [facility] [address] [phone] Prosper De La Fuente, PT 175 [place] [address] 11/29/2024 12:30 PM EDT Treatment [facility] [address] [phone] Jayro Powell, SUPERVISOR SAWMILL 12/01/2024 12:30 PM EDT Treatment [facility] [address] [phone] Jayro Powell, SUPERVISOR SAWMILL 12/06/2024 9:30 AM EDT Treatment [facility] [address] [phone] Prosper De La Fuente, PT 175 [place] [address] 12/06/2024 10:15 AM EDT Office Visit Orthopedic Surgery [facility] [address] [phone] Michael Mercedes, DPM [address] [address] Health Maintenance Due Date Last Done Comments [...] age to complete this topic Meningococcal B Vaccine Aged Out No l onger eligible based on patient's age to complete [...] PT LTG x 15 visits from 11/01/2024 General No Prosper De La Fuente, PT Note: [] Pt will increase walking capacity to 2 hrs Insurance [facility] MEDICARE Member Subscriber Plan / Payer (Ef fective 2015-Present) Name:Shaheen Munoz Elsy Relation to Subscriber:Self Name:Shaheen Munoz Payer ID:[id number] Group ID:[id number] Type:Not on file Address: [address] [place] [phone] MED[place] - [place] Care Teams Biomedical Engineering Internship Relationship Specialty Start Date End Date Zeb Ca MD [address] [place] [address] [address] [place], [place] PCP - General Internal Medicine 05/07/24
[2024-11-22 13:58] VITALS: BP 118/76; PULSE 72; O2SAT 97; BMI 28.8
--- NOTE | 2024-11-22 13:58 | A.OFFPC_ITS ---
Vital Signs 11/22/24 13:58 Height 5 ft 9 in Weight 195 lb BMI 28.8 BP 118/76 Blood Pressure Location Lt brachial Position Sitting Pulse 72 Pulse Source Pulse Oximeter Pulse Oximetry (%) 97 Oxygen Delivery Method Room Air Intake Visit Reasons: Pain Financial Planning Advisor Required: No Accompanied by: Self / Same As Patient Allergies atorvastatin Adverse Reaction (Intermediate, Verified 11/22/24 14:30) elevated LFTs Medication List - Last Reconciled 11/22/24 by Zeb Ca MD albuterol sulfate 90 mcg/actuation 2 puffs inhalation Q4H PRN aripiprazole 5 mg PO DAILY dapagliflozin propanediol (Farxiga) 10 mg PO DAILY ergocalciferol (vitamin D2) 1,250 mcg PO WE@0900 fluoxetine 40 mg PO DAILY fluticasone propionate 220 mcg/actuation 1 puff PO BID lamotrigine (Lamictal) 200 mg PO BID levothyroxine 125 mcg PO DAILY@0600 melatonin 5 mg PO BEDTIME omega 5-syo-tmm-fish oil 1,200 (144-216) mg (Fish Oil) 1 cap PO DAILY omeprazole 20 mg PO DAILY rosuvastatin 5 mg PO DAILY sodium bicarbonate 650 mg PO QID sodium zirconium cyclosilicate (Lokelma) 10 grams PO MOWEFR@0900 trazodone 50 mg PO BEDTIME PRN zonisamide 100 mg PO QID Tobacco use date assessed: 11/22/24 Dental Screening Dental Screen Date: 11/22/24 Did you have a dental visit in the last 12 months?: Yes Did you have a dental problem in the last 6 months where you did not have access to dental care?: No Was dental information given to patient?: Patient has dentist HPI Pain HPI Details Patient comes in today complaining of worsening symptoms of sensation of pins and needles on both his feet, which he states started a couple weeks ago Notes that the symptoms on his feet feels worse when he is walking Recalls that he had some problems tolerating Gabapentin in the past and would like to try something else to help with his symptoms States that he currently has no other acute issues or complaints FORMERLY [facility], [facility] Medical History (Updated 11/22/24 @ 14:38 by Zeb Ca MD) Type 1 diabetes mellitus Polycystic kidney disease Lumbar spondylosis Degenerative joint disease of thoracic spine Overweight (BMI 25.0-29.9) Chronic kidney disease, stage 4 (severe) Prolonged QT interval Hyperkalemia Memory impairment Vitamin D deficiency Hypothyroidism Seizures Anxiety Fatty liver IBS (irritable colon syndrome) GERD (gastroesophageal reflux disease) Obesity (BMI 30-39.9) Schizoaffective disorder Asthma Epilepsy Essential hypertension 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 1. Little interest or pleasure in doing things: not at all 2. Feeling down, depressed, or hopeless: not at all 3. Trouble falling or staying asleep, or sleeping too much: not at all 4. Feeling tired or having little energy: not at all 5. Poor appetite or overeating: not at all 6. Feeling bad about yourself - or that you are a failure or have let yourself or your family down: not at all 7. Trouble concentrating on things, such as reading the newspaper or watching television: not at all 8. Moving or speaking so slowly that other people could have noticed. Or the opposite - being so fidgety or restless that you have been moving around a lot more than usual: not at all 9. Thoughts that you would be better off or of hurting yourself in some way: not at all Total score: 0 Depression Screening Interpretation: Negative (is on Rx) Depression Screening Done: Yes 64028 - PHQ-9 Billing: Yes Source: Developed by Ashly Canela Kurt Kroenke and colleagues, with an educational danette from [employer]. Thrive Questionnaire Date Thrive assessed: 11/22/24 I am a: Patient What is your living situation today?: I have a steady place to live Within the past 12 months, did the food you bought not last and you didn't have the money to get more?: Sometimes True Within the past 12 months, did you worry whether your food would run out before you got money to buy more?: Often true Do you have trouble paying for medicines?: Yes Do you have trouble getting transportation to medical appointments?: No Do you have trouble paying your heating and electricity bill?: No Do you have trouble taking care of your child, family member or friend?: No Do you have trouble with day-to-day activities such as bathing, preparing meals, shopping, managing finances, etc.?: No Are you currently unemployed and looking for a job?: No Are you interested in more education?: No Please select the resources that you would like help with: Food Currently or been in a relationship where the following occur: No concerns reported THRIVE Score: 2 AUDIT C Alcohol Use Questionnaire (AUDIT-C) 1. How often do you have a drink containing alcohol?: Never 3. How often do you have six or more drinks on one occasion?: Never Total Score: 0 Score Reviewed/Action Taken: Yes ELEUTERIO-7 AMB Questionnaire ELEUTERIO-7 Date ELEUTERIO - 7 assessed: 11/22/24 Feeling nervous, anxious, or on edge: 0 = Not at all Not being able to stop or control worryin = Not at all Worrying too much about different things: 0 = Not at all Trouble relaxin = Not at all Being so restless that it is hard to sit still: 0 = Not at all Becoming easily annoyed or irritable: 0 = Not at all Feeling afraid as if something awful might happen: 0 = Not at all Total ELEUTERIO-7 score (0-4 normal; 5-9 mild; 10-14 moderate; 15-21 severe): 0 Source: Developed by Ashly Canela [employer]en[employer] and colleagues, with an educational danette from [employer]. Review of Systems Const Denies chills, Reports fatigue, Denies fever(s) and Denies headache(s) ENT Denies dysphagia, Denies dizziness, Denies otalgia, Denies headache(s), Denies neck pain, Denies odynophagia and Denies sore throat Card Denies chest pain, Denies palpitations and Denies dyspnea Resp Denies chest congestion, Denies cough and Denies dyspnea GI Denies abdominal pain, Denies constipation, Denies dysphagia, Denies heartburn, Denies diarrhea, Denies nausea, Denies odynophagia and Denies vomiting Denies dysuria, Denies nocturia and Denies urinary frequency Musc Reports back pain (on and off), Denies arthralgias, Denies joint swelling and Denies neck pain Skin/Breast Denies rash Neuro Denies dizziness, Denies headache(s) and Reports paresthesias (in both feet - see HPI) Psych Reports anxiety and Reports depression (Rx helping) Endo Reports fatigue and Denies palpitations Physical exam (Primary Care) Vital Signs: Last Vital Signs Pulse 72 11/22/24 13:58 BP 118/76 11/22/24 13:58 Pulse Ox 97 11/22/24 13:58 Oxygen Delivery Method Room Air 11/22/24 13:58 BMI result Body Mass Index 28.8 Tobacco/Smoking Status: Tobacco use Status Tobacco use date assessed 11/22/24 11/22/24 14:01 Patient Tobacco Use Status Former Tobacco user 11/22/24 14:01 Tobacco use type Cigarette 11/22/24 14:01 e-Cigarette/Vaping Use Never Used 11/22/24 14:01 PHQ-9: PHQ-9 Score PHQ-9: Total score 0 11/22/24 14:32 Depression Screening Interpretation: Negative (is on Rx) Thrive Assessment: Date of Thrive Assessment Date Thrive assessed 11/22/24 11/22/24 14:01 Currently or been in a relationship where the following occur: No concerns reported Const General: no acute distress and alert HENMT Ears: TM's normal bilaterally and EAC's normal Throat: Yes posterior oropharynx normal and Yes tonsils normal (no TP congestion noted) Neck Neck: Yes supple and No lymphadenopathy Thyroid: Thyroid normal Resp Auscultation: clear to auscultation bilaterally, no rales and no wheezes Cardio Rate: regular rate Rhythm: regular rhythm Heart sounds: no murmurs GI Palpation (GI): Soft to palpation and nontender Auscultation: normal bowel sounds General: Yes no CVA tenderness Back/Spine/Pelvis Back: no CVA tenderness Thoracic/Lumbar Spine: No lumbar spinal tenderness Skin Rashes: no rashes Extrem General: Yes no clubbing, cyanosis or edema Coding Level of Care Code Est Pt Level 4 (97549) Diagnoses Paresthesia of both lower extremities R20.2 Additional Codes PHQ-9 - 99391 - PHQ-9 Billing: Yes ([id number]) Assessment & Plan Assessment & Plan (1) Paresthesia of both lower extremities: Code(s): R20.2 - Paresthesia of skin Category: Medical Plan: Have advised patient had his recent symptoms are highly suggestive of neuropathy Will send patient for EMG and NCV extremities for further evaluation For now, will start him on some Lidocaine topical ointment 5% QID PRN for symptomatic relief Plan Follow-up as scheduled in February 2025 Orders: Orders NE nerve conduction velocity 11/22/24 R20.2 - Paresthesia of skin NE electromyogram (EMG) 11/22/24 R20.2 - Paresthesia of skin Medications: New lidocaine 5% 1 appl topical QID PRN 60 grams 1RF pain 15 days
== END 2024-11-22 14:41 | disposition home or self-care (01) ==
LOC: HO.HMCH 13:43
PROVIDERS: PCP Internal Medicine; Visit Provider Internal Medicine
DX: R20.2 Paresthesia of skin (principal)

== ENCOUNTER → 2024-11-22 13:42 | Outpatient (BNVA) | payer OTHER, SELFPAY | PROVIDERS: PCP Internal Medicine; Visit Provider Internal Medicine | DX: R20.2 Paresthesia of skin (principal) | CPT/HCPCS: 96127; 99212 ==

== ENCOUNTER 2024-12-01 09:28 | Outpatient (AMB) | payer OTHER, SELFPAY ==
[2024-12-01 09:38] VITALS: BP 112/68; PULSE 76; O2SAT 98; BMI 28.3
--- NOTE | 2024-12-01 09:38 | A.OFFVIS_ITS ---
Vital Signs 12/01/24 09:38 Height 5 ft 9 in Weight 191 lb 12.835 oz BMI 28.3 BP 112/68 Blood Pressure Location Rt brachial Position Sitting Pulse 76 Pulse Source Pulse Oximeter Pulse Oximetry (%) 98 Oxygen Delivery Method Room Air Intake Visit Reasons: DM Intake Note: Patient presents today for a follow-up on Type 1 Diabetes Mellitus: Last Diabetic eye exam was on: 10/15/2024, [facility]. Last Podiatry exam was on: Patient does not see a Manager Engagement Most recent HbA1c: 5.9%, 12/01/2024 Random Glucose- 115 mg/dL, Today Physics Department Chair Required: No Accompanied by: Self / Same As Patient Allergies atorvastatin Adverse Reaction (Intermediate, Verified 12/01/24 09:41) elevated LFTs HPI Comments Details: Patient is a 54 yo male with diabetes presenting for follow up Past medical history: HTN, Vit D deficiency, bipolar disorder and schizophrenia, Chronic kidney disease stage 4, PCKD Diagnosed at age 22 Micro and macrovascular complications: + nephropathy, + neuropathy, Diabetes medications: OFF-Lantus 8 units, continues, Farxiga 10 mg QD Blood glucose monitoring : POC A1C today is 5.9%. A1C in 09/2024 5.4% Symptoms reported: Numbness, tingling bilateral feet. Tried gabapentin but caused tremulousness. Using OTC lidocaine Hypoglycemia: Denies, Hyperglycemia: denies polyuria, denies nocturia, Exercise: walking 90 minutes daily Eye exam: reports UTD- reports no dm retinopathy, cararct ROS CONSTITUTIONAL: Denies weight loss, fever and chills. HEENT: Denies changes in vision and hearing. RESPIRATORY: Denies SOB and cough. CV: Denies palpitations and CP GI: Denies abdominal pain, nausea, vomiting and diarrhea. : Denies dysuria and urinary frequency. MSK: Denies new myalgia and joint pain. SKIN: Denies rash and pruritus. NEUROLOGICAL: see HPI PSYCHIATRIC: Denies recent changes in mood. PHYSICAL EXAM: GENERAL: Alert and oriented x 3. NAD EYES: EOMI. Anicteric. HENT: Moist mucous membranes. No scleral icterus. No cervical lymphadenopathy. LUNGS: Clear to auscultation bilaterally. CARDIOVASCULAR: Regular rate and rhythm. No murmur. No JVD. ABDOMEN: Soft, non-tender +bs EXTREMITIES: No edema. Non-tender. SKIN: No rashes or lesions. Warm. NEUROLOGIC: No focal neurological deficits. PSYCHIATRIC: Cooperative. 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 Cognitive needs: No Hearing needs: No Vision needs: Yes (glasses) Physical Exam Vital Signs: Last Vital Signs Pulse 76 12/01/24 09:38 BP 112/68 12/01/24 09:38 Pulse Ox 98 12/01/24 09:38 Oxygen Delivery Method Room Air 12/01/24 09:38 BMI result Body Mass Index 28.3 Results AMB Hemoglobin A1c AMB Hemoglobin A1c 5.9 % Last Edit by GABE Mota on 12/01/24 09:55 Results Reviewed Results Reviewed: Laboratory Last Values Glucose (Clinic) 115 mg/dL (60-115) 12/01/24 09:46 Assessment & Plan Assessment & Plan (1) Type 1 diabetes: Code(s): E10.9 - Type 1 diabetes mellitus without complications Category: Medical Qualifiers: Diabetes mellitus complication detail: with polyneuropathy Diabetes mellitus complication status: with neurologic complications Qualified Code(s): E10.42 - Type 1 diabetes mellitus with diabetic polyneuropathy (2) Neuropathy: Code(s): G62.9 - Polyneuropathy, unspecified Category: Medical (3) Polycystic kidney disease: Comment: abdominal US done on 11/28/2023 revealed (+) enlarged kidneys replaced by 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 He can continue farxiga given kidney disease He has follow up with PCP in 3 months. A1C ordered in anticipation of that visit He can follow up here in 6 months Orders: Orders AMB Hemoglobin A1c Today E10.22 - Type 1 diabetes mellitus with diabetic chronic kidney disease, N18.4 - Chronic kidney disease, stage 4 (severe) Hemoglobin A1c 2 Months E10.42 - Type 1 diabetes mellitus with diabetic polyneuropathy Vitamin B12 Today E10.22 - Type 1 diabetes mellitus with diabetic chronic kidney disease, G62.9 - Polyneuropathy, unspecified, N18.4 - Chronic kidney disease, stage 4 (severe) Medications: New pregabalin (Lyrica) 100 mg PO BID 180 caps 3RF lidocaine 5% 1 appl topical BEDTIME PRN 50 grams 0RF pain Coding Level of Care Code Est Pt Level 4 (35638) Complex EM visit Add On G2211 Diagnoses Type 1 diabetes mellitus with diabetic polyneuropathy E10.42 Diabetes mellitus complication detail: with polyneuropathy Diabetes mellitus complication status: with neurologic complications Neuropathy G62.9 Polycystic kidney disease Q61.3
[2024-12-01 09:52] LABS: Glucose, Whole Blood 115 mg/dL (60-115)
--- OUTSIDE RECORDS SUMMARY | 2024-12-01 10:11 | XMS_ITS | Clinical Summary ---
Author Organization [facility] Address [address] [place] [address] Phone Care Team Providers Care Loom Control Chain Builder Name Role Phone Zeb Ca MD Primary Care Provider [phone]- [phone] Allergies No known active allergies Medications zonisamide [...] diskus inhaler Activ e ergocalciferol 1.25 MG (01057 UT) capsule Take 1 capsule by mouth [...] Encounters Date Type Department Care Team Description 11/30/2024 Refill [facility] [address] [place] [address] Nelson Knowles MD 09/06/2024 Orders Only [facility] [address] [place] [address] Nelson Knowles MD from Last 3 Months [...] Visit [facility] [address] [place] [address] Nelson Knowles MD [address] [facility] [address] [place] [address] Health Maintenance Due Date Last Done Comments Hepatitis B Vaccine (1 of 3 - 19+ 3-dose series) 1990 Pneumococcal Vaccine: 50+ Ye ars (1 of 2 - PCV) 1990 Colorectal Cancer Screening: Annual FOBT 2020 [...] LABS Routine 09/01/2024 from Last 3 Months or Most Recently Relevant to Health Maintenance Results * (ABNORMAL) Creatinine (09/06/2024 8:53 AM [...] order comments [place] [address] * (ABNORMAL) CBC and Differential (09/06/2024 8:53 AM EST) Pathologist [facility] WBC 7.0 4.8 - 10.8 X10*3/uL See [...] Final Re sult Performing Organization Address [facility] Phone Number [place] See order comments [place] [address] * (ABNORMAL) BUN (09/06/2024 8:53 AM EST) BUN 46(H) 9 - 16 mg/dL See order comments 09/06/2024 8:53 AM EST 09/06/2024 8:53 AM EST us Nelson Knowles MD LAB BLOOD ORDERABLES Final Re sult Performing Organization Address [facility] Phone Number [place] See order comments [place] [address] * Calcium (09/06/2024 8:53 AM EST) Calcium 8.7 8.4 - 10.2 mg/dL See order comments 09/06/2024 8:53 AM EST 09/06/2024 8:53 AM EST us Nelson Knowles MD LAB BLOOD ORDERABLES Final Re sult Performing Organization Address [facility] Phone Number [facility] See order comments [place] [address] * (ABNORMAL) Electrolyte panel (09/06/2024 8:53 AM [...] order comments [place] [address] * ALT EXT LABS (09/01/2024) Hemoglobin A1C 5.5 4.0 - 6.0 09/01/2024 us Historical Provider LAB BLOOD ORDERABLES Lizbeth l Result from Last 3 Months or Most Recently Relevant to Health Maintenance Insurance [facility] ([id number]) [place] [id number] [facility] ([id number]) Care Teams Loom Control Chain Builder Relationship Specialty Start Date End Date Zeb Ca MD [address] [place] [address] PCP - General Internal Medicine 09/21/21
--- OUTSIDE RECORDS SUMMARY | 2024-12-01 10:11 | XMS_ITS | Encounter Summary ---
Author Organization [facility] Address [address] [facility] [address] [place] [address] Phone Care Team Providers Care Maintenance Technician 2Nd Shift Name Role Phone Zeb Ca MD Primary Care Provider +1- [phone] Reason for Visit * Reason Comments Med Refill Encounter Details Date Type Department Care Team (Late Contact Info) Description 11/30/2024 Refill [facility] [address] [place] [address] Nelson Knowles MD [address] [facility] [address] [place] [address] Social History Tobacco Use Types Packs/Day [...] Office Visit [facility] [address] [place] [address] Nelson Knowles MD [address] [facility] [address] [place] [address] documented as of this encounter Visit Diagnoses Not on filedocumented in this encounter Care Teams Maintenance Technician 2Nd Shift Relationship Specialty Start Date End Date Zeb Ca MD [address] [place] [address] PCP - General Internal Medicine 09/21/21 documented as of this encounter
--- OUTSIDE RECORDS SUMMARY | 2024-12-01 10:11 | XMS_ITS | Clinical Summary ---
Author Organization [facility] Address [address] [place] [address] Phone Care Team Providers Care Requirements Analyst Name Role Phone Zeb Ca MD Primary [...] Type 2 diabetes mellitus wit h hyperglycemia ([facility] V24, [facility] V28) 06/09/2024 Polycystic kidney disease 06/09/2024 GERD (gastroesophageal reflux disease) IBS (irritable bowel syndrome) 06/09/2024 Fatty liver 06/09/2024 Prolonged QT interval 06/09/2024 Encounters Date Type Department Care Team Description 11/15/2024 12:30 PM EDT Treatment [facility] [address] [address] Jayro Powell, TENNIS BALL COVERER HAND Tendonitis, Achilles, left (Primary Dx) 11/01/2024 11:00 AM EDT Evaluation [facility] [address] [phone] Prosper De La Fuente M, PT Tendonitis, Achilles, left (Primary Dx) 09/08/2024 10:15 AM EST Office Visit Orthopedic Surgery [facility] 250 [address] [facility] [address] [place] [phone] Michael Mercedes, DPM Tendonitis, Achilles, left (Primary Dx); Follow-up exam; Diabetic mononeuropathy simplex ([facility] V24, [facility] V28); Dermatophytosis of nail; Corns and callosities; Pain in toe of right foot; Pain in toe of left foot; Metatarsalgia of both feet; Type II diabetes mellitus with peripheral circulatory disorder ([facility] V24, [facility] V28) from Last 3 Months Social History [...] Care Team (Late st Contact Info) Description 12/01/2024 12:30 PM EDT Treatment [facility] [address] [phone] Jayro Powell, TENNIS BALL COVERER HAND 12/06/2024 9:30 AM EDT Treatment [facility] [address] [address] Prosper De La Fuente, PT 175 [place] [address] 12/06/2024 10:15 AM EDT Office Visit Orthopedic Surgery - [place] 250 175 [facility] [address] [place] [phone] Michael Mercedes, DPM [address] [address] Health Maintenance Due Date Last Done Comments [...] increase walking capacity to [address] [facility] MEDICARE Member Subscriber Plan / Payer (Ef fective 2015-Present) Name:Shaheen Munoz Relation to Subscriber:Self Name:Shaheen Munoz Payer ID:[id number] Group ID:[id number] Type:Not on file Address: [place] [address] [place] [id number] MEDICA[place] - [place] Care Teams Requirements Analyst Relationship Specialty Start Date End Date Zeb Ca MD [address] [place] [address] [place] [address] PCP - General Internal Medicine 05/07/24
== END 2024-12-01 10:09 | disposition home or self-care (01) ==
LOC: HO.ENCR 09:29
PROVIDERS: PCP Internal Medicine; Visit Provider Internal Medicine
DX: E10.42 Type 1 diabetes mellitus with diabetic polyneuropathy (principal); G62.9 Polyneuropathy, unspecified; Q61.3 Polycystic kidney, unspecified; E10.22 Type 1 diabetes mellitus with diabetic chronic kidney disease; N18.4 Chronic kidney disease, stage 4 (severe)

== ENCOUNTER → 2024-12-01 09:28 | Outpatient (BNVA) | payer OTHER, SELFPAY | PROVIDERS: PCP Internal Medicine; Visit Provider Internal Medicine | DX: E10.42 Type 1 diabetes mellitus with diabetic polyneuropathy (principal); E10.21 Type 1 diabetes mellitus with diabetic nephropathy; E10.22 Type 1 diabetes mellitus with diabetic chronic kidney disease; I12.9 Hypertensive chronic kidney disease with stage 1 through stage 4 chronic kidney disease, or unspecified chronic kidney disease; N18.4 Chronic kidney disease, stage 4 (severe); E55.9 Vitamin D deficiency, unspecified; Q61.3 Polycystic kidney, unspecified | CPT/HCPCS: 82947; 83036; 99212 ==

== ENCOUNTER 2024-12-03 11:09 | Outpatient (AMB) | payer OTHER, SELFPAY ==
[2024-12-03 11:12] VITALS: BP 136/73; PULSE 68; O2SAT 95; BMI 30.5
--- NOTE | 2024-12-03 11:12 | MHC.OFFVIS ---
Vital Signs 12/03/24 11:12 Height 5 ft 9 in Weight 206 lb 12.697 oz BMI 30.5 BP 136/73 Blood Pressure Location Rt brachial Position Sitting Pulse 68 Pulse Source Pulse Oximeter Pulse Oximetry (%) 95 Oxygen Delivery Method Room Air Intake Visit Reasons: Follow up GERD Intake Note: Patient yearly follow up for GERD & Chronic kidney disease, stage 4 (severe) Allergies atorvastatin Adverse Reaction (Intermediate, Verified 12/03/24 11:13) elevated LFTs HPI HPI Follow up GERD: Details: Assessment & Plan (1) Elevated LFTs: [facility];: 03/30/2020 total bili 0.4, alk-phos is 165, AST/ALT is 11/20/23 06:50 Plt Count 219 Estimated GFR 24 Total Bilirubin 0.4 AST 134 H ALT 61 H Alkaline Phosphatase 153 H TSH 0.76 MONSE Screen NEGATIVE Anti-Mitochondrial Ab NEGATIVE Anti-Smooth Muscle Ab <20 Hepatitis A IgM Ab Nonreactive Hep Bs Antigen Negative Hep Bs Antibody NONREACTIVE Hep B Core Total Ab Nonreactive Hepatitis C Ab (EIA) Nonreactive HIV 1&2 Ab/P24 Ag 4thGn Nonreactive CURRENT LABS 11/19/2404/11/2404 14:0401:0903:57 Estimated GFR 19 Total Bilirubin 0.2 AST 17 ALT 15 Alkaline Phosphatase 137 H C-Reactive Protein 0.27 Lipase 65 MONSE Screen NEGATIVE Anti-Mitochondrial Ab NEGATIVE Anti-Smooth Muscle Ab <20 Hepatitis A IgM Ab Nonreactive Hep Bs Antigen Negative Hep Bs Antibody NONREACTIVE Hep B Core Total Ab Nonreactive Hepatitis C Ab (EIA) Nonreactive HIV 1&2 Ab/P24 Ag 4thGn Nonreactive LIVER FIBROSIS PANEL AND FERRITIN NOT OBTAINED ULTRASOUND OF THE ABDOMEN Code(s): R79.89 - Other specified abnormal findings of blood chemistry Category: Medical (2) Chronic kidney disease, stage 4 (severe): Code(s): N18.4 - Chronic kidney disease, stage 4 (severe) Category: Medical (3) Prolonged QT interval: Code(s): R94.31 - Abnormal electrocardiogram [ECG] [EKG] Category: Medical (4) Irritable bowel syndrome with both constipation and diarrhea: Code(s): K58.2 - Mixed irritable bowel syndrome Category: Medical (5) GERD (gastroesophageal reflux disease): Code(s): K21.9 - Gastro-esophageal reflux disease without esophagitis Category: Medical Qualifiers: Esophagitis presence: without esophagitis Qualified Code(s): K21.9 - Gastro-esophageal reflux disease without esophagitis Plan He is rapidly losing weight, but was taken off of Trulicty and changed to Farxiga. This can be the cause, as his glucosurea has increased. He says his sugars have been well controlled. His liver appears to have improved, this was most likely r/t the atorvastatin although hepatorenal interplay could also effect this. The bisacodyl is working for his CIC and he continues on his omeprazole. He is quite worried about his renal fxn, and needs to see his nephologist to best preserve his kidneys. ROV 6 mos. TODAY'S VISIT He is doing well on his omeprazole, his focus has been on his renal status. He has not happen constipated recently and when he does have trouble he simply increases the fiber in his diet. Needs TINEO updates, getting labs and US. May have an element of hepatorenal syndrome in play. ROV 3 mos. [facility] Medical History (Updated 12/03/24 @ 11:34 by GILSON Simpson) Essential hypertension Right shoulder pain Paresthesia of both lower extremities Type 2 diabetes mellitus with diabetic chronic kidney disease Type 2 diabetes mellitus with hyperglycemia Left shoulder pain Chronic kidney disease, stage 3 Difficulty walking Dental caries Preoperative examination Synovial cyst of elbow COVID-19 Type 1 diabetes Type 1 diabetes mellitus Polycystic kidney disease Lumbar spondylosis Degenerative joint disease of thoracic spine Overweight (BMI 25.0-29.9) Chronic kidney disease, stage 4 (severe) Prolonged QT interval Hyperkalemia Memory impairment Vitamin D deficiency Hypothyroidism Seizures Anxiety Fatty liver IBS (irritable colon syndrome) GERD (gastroesophageal reflux disease) Obesity (BMI 30-39.9) Schizoaffective disorder Asthma Epilepsy Pure hypercholesterolemia intermediate (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 Surgical History History of surgery on lower extremity History of dental surgery H/O colonoscopy Family History Father No problems noted. 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 Cognitive needs: No Hearing needs: No Vision needs: Yes (glasses) Review of Systems Const Denies fatigue, Denies fever(s), Denies night sweats, Denies poor appetite and Denies weight loss Eyes Details: glasses Reports requires corrective lenses ENT Reports Normal hearing present, Denies dental pain, Denies dysphagia, Denies hearing loss, Denies mouth pain, Denies odynophagia, Denies throat swelling, Denies tongue swelling and Reports other (Dentition adequate) Card Reports no additional complaints Resp Reports no additional complaints GI Details: Denies abdominal pain, Denies melena, Denies bloating, Denies hematochezia, Reports constipation, Denies GI cramping, Denies dysphagia, Denies excessive flatus, Denies early satiety, Reports heartburn, Denies diarrhea, Denies nausea, Denies odynophagia, Denies vomiting and Denies hematemesis Skin/Breast Denies pruritus, Denies lesions, Denies rash and Denies jaundice Neuro Reports Normal hearing present and Denies Abnormal speech present Endo Denies fatigue Aller/Immun Denies throat swelling and Denies tongue swelling Physical Exam Vital Signs: Last Vital Signs Pulse 68 12/03/24 11:12 BP 136/73 12/03/24 11:12 Pulse Ox 95 12/03/24 11:12 Oxygen Delivery Method Room Air 12/03/24 11:12 BMI result Body Mass Index 30.5 Const General: cooperative, no acute distress, well developed and well groomed Nutritional Appearance: well nourished and obese Orientation/consciousness: oriented to person, oriented to place and oriented to time Limitations: No language barrier and other limitations (Psychiatric status) HEENT Head: Yes normocephalic and Yes atraumatic Eyes General: appearance normal, both eyes and all related structures Pupils: Equal, round and reactive pupils present Neck Neck: Yes normal visual inspection and Yes no lymphadenopathy Thyroid: Thyroid normal Resp Effort & Inspection: normal respiratory effort and able to speak in complete sentences Auscultation: clear to auscultation bilaterally Cardio Rate: regular rate Rhythm: regular rhythm Heart sounds: Normal, physiologic split S2 sound present Peripheral pulses: radial pulses present and posterior tibial pulses present GI Inspection: No distended and No Abdominal panniculus present Palpation (GI): Soft to palpation, nontender, no guarding, not rigid and No hepatosplenomegaly present Percussion: Yes normal to percussion Auscultation: normal bowel sounds Rectal Exam - Male: Yes deferred Skin General skin exam: no rashes or lesions noted, turgor normal, skin not dry, no jaundice, No spider nevi and no striae Rashes: no rashes Nails: normal Neuro General: oriented to person, oriented to place and oriented to time Cranial nerves: Yes Equal, round and reactive pupils present and Yes Normal hearing present Speech: No Abnormal speech present Extrem General: Yes normal to inspection, No clubbing, No cyanosis and No edema Psych Appearance: grossly normal and well kempt Mental Status: mental status grossly normal Speech and movement: Normal speech and movement present Affect: Animated affect present Attitude: cooperative Thought process: Circumstantial thought process present and not confabulating Thought content: Normal thought content present Insight: Limited insight present (Psych) Judgement: Limited judgement present (Psych) Assessment & Plan Assessment & Plan (1) GERD (gastroesophageal reflux disease): Code(s): K21.9 - Gastro-esophageal reflux disease without esophagitis Category: Medical Qualifiers: Esophagitis presence: without esophagitis Qualified Code(s): K21.9 - Gastro-esophageal reflux disease without esophagitis (2) Irritable bowel syndrome with both constipation and diarrhea: Code(s): K58.2 - Mixed irritable bowel syndrome Category: Medical (3) Elevated LFTs: Comment: BASELINE LABS;: 03/30/2020 total bili 0.4, alk-phos is 165, AST/ALT is 27/34 11/20/23 06:50 Plt Count 219 Estimated GFR 24 Total Bilirubin 0.4 AST 134 H ALT 61 H Alkaline Phosphatase 153 H TSH 0.76 MONSE Screen NEGATIVE Anti-Mitochondrial Ab NEGATIVE Anti-Smooth Muscle Ab <20 Hepatitis A IgM Ab Nonreactive Hep Bs Antigen Negative Hep Bs Antibody NONREACTIVE Hep B Core Total Ab Nonreactive Hepatitis C Ab (EIA) Nonreactive HIV 1&2 Ab/P24 Ag 4thGn Nonreactive CURRENT LABS 11/19/2404/11/2404 14:0401:0903:57 Estimated GFR 19 Total Bilirubin 0.2 AST 17 ALT 15 Alkaline Phosphatase 137 H C-Reactive Protein 0.27 Lipase 65 MONSE Screen NEGATIVE Anti-Mitochondrial Ab NEGATIVE Anti-Smooth Muscle Ab <20 Hepatitis A IgM Ab Nonreactive Hep Bs Antigen Negative Hep Bs Antibody NONREACTIVE Hep B Core Total Ab Nonreactive Hepatitis C Ab (EIA) Nonreactive HIV 1&2 Ab/P24 Ag 4thGn Nonreactive LIVER FIBROSIS PANEL AND FERRITIN NOT OBTAINED ULTRASOUND OF THE ABDOMEN Code(s): R79.89 - Other specified abnormal findings of blood chemistry Category: Medical (4) Diabetic nephropathy: Code(s): E11.21 - Type 2 diabetes mellitus with diabetic nephropathy Category: Medical (5) Polycystic kidney disease: Comment: abdominal US done on 11/28/2023 revealed (+) enlarged kidneys replaced by innumerable cysts consistent with autosomal dominant polycystic kidney disease Code(s): Q61.3 - Polycystic kidney, unspecified Category: Medical Plan He is doing well on his omeprazole, his focus has been on his renal status. He has not happen constipated recently and when he does have trouble he simply increases the fiber in his diet. Needs TINEO updates, getting labs and US. May have an element of hepatorenal syndrome in play. ROV 3 mos. Orders: Orders US abdomen complete Today R79.89 - Other specified abnormal findings of blood chemistry Comprehensive Met. Panel Today R79.89 - Other specified abnormal findings of blood chemistry Medications: Refilled omeprazole 20 mg PO DAILY 90 caps 2RF Coding Level of Care Code Est Pt Level 3 (53805) Diagnoses Gastroesophageal reflux disease without esophagitis K21.9 Esophagitis presence: without esophagitis Irritable bowel syndrome with both constipation and diarrhea K58.2 Elevated LFTs R79.89 Diabetic nephropathy E11.21 Polycystic kidney disease Q61.3
--- OUTSIDE RECORDS SUMMARY | 2024-12-03 12:13 | XMS_ITS | Clinical Summary ---
Author Organization [facility] Address [address] [place] [address] Phone Care Team Providers Care Pcas Name Role Phone Zeb Ca MD Primary Care Provider [phone]- [phone] Allergies No known active allergies Medications zonisamide [...] diskus inhaler Activ e ergocalciferol 1.25 MG (96967 UT) capsule Take 1 capsule by mouth [...] mouth 1 (one) time each day Active Farxiga 10 MG tablet TAKE 1 TABLET BY MOUTH EVERY DAY 90 tablet 3 08/02/20 24 Active gabapentin (NEURONTIN) 300 MG capsule 300 mg in the morning and 300 mg in the evening. Take with meals. 07/22/20 24 Active sodium bicarbonate 650 MG tablet TAKE 1 TABLET BY MOUTH IN THE MORNING, 1 TAB AT NOON, 1 TAB IN EVENING, AND 1 TAB AT BEDTIME DAILY 360 tablet 12/02/19 25 Active sodium bicarbonate 650 MG tablet TAKE 1 TABLET BY MOUTH IN THE MORNING, 1 TAB AT NOON, 1 TAB IN EVENING, AND 1 TAB AT BEDTIME DAILY 360 tablet 07/29/20 24 025 Discontinued Active Problems Problem Noted Date Diagnosed Date Hyperkalemia 02/09/2024 Chronic kidney disease, stage 4 (severe) 022 Renal osteodystrophy 05/27/2022 Chronic kidney disease stage 3 11/29/2021 Essential hypertension 11/29/2021 Renal disorder due to type 2 diabetes mellitus 0 11/29/2021 Type 2 diabetes mellitus with peripheral angiopa thy 11/29/2021 Encounters Date Type Department Care Team Description 11/30/2024 Refill [facility] [address] [place] [address] Nelson Knowles MD 09/06/2024 Orders Only [facility] [address] [place] [phone] Nelson Knowles MD from Last 3 Months [...] Visit [facility] [address] [place] [address] Nelson Knowles MD [address] [facility] [address] [place] [address] Health Maintenance Due Date Last [...] order comments [place] [address] * (ABNORMAL) CBC and Differential (09/06/2024 8:53 [...] ORDERABLES Final Re sult Performing Organization Address [facility] de Phone Number [place] See order comments [place] [address] * (ABNORMAL) BUN (09/06/2024 8:53 AM EST) BUN 46(H) 9 - 16 mg/dL See order comments 09/06/2024 8:53 AM EST 09/06/2024 8:53 AM EST us Nelson Knowles MD LAB BLOOD ORDERABLES Final Re sult Performing Organization Address [facility] de Phone Number [facility] See order comments [place] [address] * Calcium (09/06/2024 8:53 AM EST) Calcium 8.7 8.4 - 10.2 mg/dL See order comments 09/06/2024 8:53 AM EST 09/06/2024 8:53 AM EST us Nelson Knowles MD LAB BLOOD ORDERABLES Final Re sult Performing Organization Address [facility] de Phone Number [place] See order comments [place] [address] * (ABNORMAL) Electrolyte panel (09/06/2024 8:53 AM [...] order comments [place] [address] * ALT EXT LABS (09/01/2024) Hemoglobin A1C 5.5 4.0 - 6.0 09/01/2024 Historical Provider LAB BLOOD ORDERABLES Lizbeth l Result from Last 3 Months or Most Recently Relevant to Health Maintenance Insurance [facility] ([id number]) [facility] ([id number]) [place] [phone] Care Teams Pcas Relationship Specialty Start Date End Date Zeb aC MD [address] [place] [address] PCP - General Internal Medicine 09/21/21
--- OUTSIDE RECORDS SUMMARY | 2024-12-03 12:13 | XMS_ITS | Encounter Summary ---
Author Organization [facility] Address [address] [facility] [address] [place] [address] Phone Care Team Providers Care Water Softener Servicer Name Role Phone Zeb Ca MD Primary Care Provider +1- [phone] Reason for Visit * Reason Comments Med Refill Encounter Details Date Type Department Care Team (Late Contact Info) Description 11/30/2024 Refill [facility] [address] [place] [address] Nelson Knowles MD [address] [facility] [address] [place] [address] Social History Tobacco Use Types [...] Visit [facility] [address] [place] [address] Nelson Knowles MD [address] [facility] [address] [place] [address] documented as of this encounter Visit Diagnoses Not on filedocumented in this encounter Care Teams Water Softener Servicer Relationship Specialty Start Date End Date Zeb Ca MD [address] [place] [address] PCP - General Internal Medicine 09/21/21 documented as of this encounter
--- OUTSIDE RECORDS SUMMARY | 2024-12-03 12:13 | XMS_ITS | Clinical Summary ---
Author Organization 175 [facility] Address 175 [place] [address] Phone Care Team Providers Care Expanding Machine Operator Name Role Phone Zeb Ca [...] Type 2 diabetes mellitus wit h hyperglycemia ([facility] V24, [facility] V28) 06/09/2024 Polycystic kidney disease 06/09/2024 GERD (gastroesophageal reflux disease) IBS (irritable bowel syndrome) 06/09/2024 Fatty liver 06/09/2024 Prolonged QT interval 06/09/2024 Encounters Date Type Department Care Team Description 11/15/2024 12:30 PM EDT Treatment [facility] [address] [phone] Jayro Powell, RANCH SUPERVISOR Tendonitis, Achilles, left (Primary Dx) 11/01/2024 11:00 AM EDT Evaluation [facility] [address] [phone] Prosper De La Fuente, PT Tendonitis, Achilles, left (Primary Dx) 09/08/2024 10:15 AM EST Office Visit [facility] [address] [phone] Michael Mercedes DPM Tendonitis, Achilles, left (Primary Dx); Follow-up exam; Diabetic mononeuropathy simplex ([facility] V24, [facility] V28); Dermatophytosis of nail; Corns and callosities; Pain in toe of right foot; Pain in toe of left foot; Metatarsalgia of both feet; Type II diabetes mellitus with peripheral circulatory disorder ([facility] V24, [facility] V28) from Last 3 Months [...] Care Team (Late st Contact Info) Description 12/06/2024 9:30 AM EDT Treatment [facility] [address] [phone] Prosper De La Fuente, PT 175 [place] [address] 12/06/2024 10:15 AM EDT Office Visit [facility] [address] [phone] Michael Mercedes DPM [address] [address] Health Maintenance Due Date Last Done Comments [...] increase walking capacity to 2 hrs Insurance [facility] MEDICARE Member Subscriber Plan / Payer (Ef fective 2015-Present) Name:Shaheen Munoz Relation to Subscriber:Self Name:Shaheen Munoz Payer ID:[id number] Group ID:[id number] Type:Not on file Address: [address] [place] [phone] MEDICAID - [place] Care Teams Expanding Machine Operator Relationship Specialty Start Date End Date Zeb Ca MD [address] [place] [address] [address] [place], [place] PCP - General Internal Medicine 05/07/24
== END 2024-12-03 11:33 | disposition home or self-care (01) ==
LOC: HO.HGI 11:10
PROVIDERS: Visit Provider Nurse Practitioner
DX: K21.9 Gastro-esophageal reflux disease without esophagitis (principal); K58.2 Mixed irritable bowel syndrome; R79.89 Other specified abnormal findings of blood chemistry; E11.21 Type 2 diabetes mellitus with diabetic nephropathy; Q61.3 Polycystic kidney, unspecified
CPT/HCPCS: 99213

== ENCOUNTER 2024-12-03 11:09 | Outpatient (REF) | payer OTHER, SELFPAY ==
[2024-12-03 12:25] LABS: Alanine Aminotransferase 30 U/L (0-40); Albumin Level 4.2 g/dL (3.5-5.0); Alkaline Phosphatase 170 U/L (39-117); Anion Gap 13 (12-20); Aspartate Amino Transferase 32 U/L (5-37); Bilirubin Total 0.2 mg/dL (0.0-1.0); Blood Urea Nitrogen 65 mg/dL (9-16); Calcium 8.5 mg/dL (8.4-10.2); Carbon Dioxide 25 mmol/L (22-29); Chloride 107 mmol/L (96-108); Estimated Glomerular Filt Rate 23; Glucose Random 108 mg/dL (60-115); Potassium 4.7 mmol/L (3.3-5.1); Sodium 140 mmol/L (135-145); Total Protein 6.7 g/dL (6.5-8.0)
--- OUTSIDE RECORDS SUMMARY | 2024-12-03 12:36 | XMS_ITS | Encounter Summary ---
Author Organization [facility] Address [address] [facility] [address] [place] [address] Phone Care Team Providers Care Filenet P8 Developer Name Role Phone Zeb Ca MD Primary Care Provider +1- [phone] Reason for Visit * Reason Comments Med Refill Encounter Details Date Type Department Care Team (Late Contact Info) Description 11/30/2024 Refill [facility] [address] [place] [address] Nelson Knowles MD [address] [facility] [address] [place] [address] Social History Tobacco Use Types [...] Office Visit [facility] [address] [place] [address] Nelson Knowles MD [address] [facility] [address] [place] [address] documented as of this encounter Visit Diagnoses Not on filedocumented in this encounter Care Teams Filenet P8 Developer Relationship Specialty Start Date End Date Zeb Ca MD [address] [place] [address] PCP - General Internal Medicine 09/21/21 documented as of this encounter
--- OUTSIDE RECORDS SUMMARY | 2024-12-03 12:36 | XMS_ITS | Clinical Summary ---
Author Organization 175 [facility] Address [address] [place] [address] Phone Care Team Providers Care Public Safety Officer Name Role Phone Zeb Ca MD Primary Care Provider [phone] Allergies No known active allergies Medications albuterol [...] Type 2 diabetes mellitus wit h hyperglycemia ([facility] V24, [facility] V28) 06/09/2024 Polycystic kidney disease 06/09/2024 GERD (gastroesophageal reflux disease) IBS (irritable bowel syndrome) 06/09/2024 Fatty liver 06/09/2024 Prolonged QT interval 06/09/2024 Encounters Date Type Department Care Team Description 11/15/2024 12:30 PM EDT Treatment [facility] [address] [phone] Jayro Powell, COMMERCIAL SEWING INSTRUCTOR Tendonitis, Achilles, left (Primary Dx) 11/01/2024 11:00 AM EDT Evaluation [facility] [address] [phone] Prosper De La Fuente, PT Tendonitis, Achilles, left (Primary Dx) 09/08/2024 10:15 AM EST Office Visit [facility] [address] [phone] Michael Mercedes DPM Tendonitis, Achilles, left (Primary Dx); Follow-up exam; Diabetic mononeuropathy simplex ([facility] V24, [facility] V28); Dermatophytosis of nail; Corns and callosities; Pain in toe of right foot; Pain in toe of left foot; Metatarsalgia of both feet; Type II diabetes mellitus with peripheral circulatory disorder ([facility] V24, [facility] V28) from Last 3 Months Social History [...] Info) Description 12/06/2024 9:30 AM EDT Treatment [facility] [address] [phone] Prosper De La Fuente, PT 175 [place] [address] 12/06/2024 10:15 AM EDT Office Visit [facility] [address] [phone] Michael Mercedes DPM [address] [address] Health Maintenance Due Date Last Done Comments [...] increase walking capacity to 2 hrs Insurance [facility] MEDICARE Member Subscriber Plan / Payer (Ef fective 2015-Present) Name:Shaheen Munoz Relation to Subscriber:Self Name:Shaheen Munoz Payer ID:[id number] Group ID:[id number] Type:Not on file Address: [address] [place] [phone] MEDICAID - [place] Care Teams Public Safety Officer Relationship Specialty Start Date End Date Zeb Ca MD [address] [place] [address] [address] [place], [place] PCP - General Internal Medicine 05/07/24
--- OUTSIDE RECORDS SUMMARY | 2024-12-03 12:36 | XMS_ITS | Clinical Summary ---
Author Organization [facility] Address [address] [place] [address] Phone Care Team Providers Care Sales Compensation Analyst Name Role Phone Zeb Ca MD Primary Care Provider +1- [phone] Allergies No known active allergies Medications zonisamide [...] diskus inhaler Activ e ergocalciferol 1.25 MG (90109 UT) capsule Take 1 capsule by mouth [...] 11/30/2024 Refill [facility] [address] [place] [address] Nelson Knowles MD 09/06/2024 Orders Only [facility] [address] [place] [phone] Nelson Knowles MD from Last 3 Months [...] Visit [facility] [address] [place] [address] Nelson Knowles MD [address] [facility] [address] [place] [address] Health Maintenance Due Date Last [...] order comments [place] [address] * (ABNORMAL) CBC and Differential (09/06/2024 8:53 [...] ORDERABLES Final Re sult Performing Organization Address [facility] de Phone Number [place] See order comments [place] [address] * (ABNORMAL) BUN (09/06/2024 8:53 AM EST) BUN 46(H) 9 - 16 mg/dL See order comments 09/06/2024 8:53 AM EST 09/06/2024 8:53 AM EST us Nelson Knowles MD LAB BLOOD ORDERABLES Final Re sult Performing Organization Address [facility] de Phone Number [facility] See order comments [place] [address] * Calcium (09/06/2024 8:53 AM EST) Calcium 8.7 8.4 - 10.2 mg/dL See order comments 09/06/2024 8:53 AM EST 09/06/2024 8:53 AM EST us Nelson Knowles MD LAB BLOOD ORDERABLES Final Re sult Performing Organization Address [facility] de Phone Number [place] See order comments [place] [address] * (ABNORMAL) Electrolyte panel (09/06/2024 8:53 AM [...] order comments [place] [address] * ALT EXT LABS (09/01/2024) Hemoglobin A1C 5.5 4.0 - 6.0 09/01/2024 Historical Provider LAB BLOOD ORDERABLES Lizbeth l Result from Last 3 Months or Most Recently Relevant to Health Maintenance Insurance [facility] ([id number]) [facility] ([id number]) [place] [phone] Care Teams Sales Compensation Analyst Relationship Specialty Start Date End Date Zeb Ca MD [address] [place] [address] PCP - General Internal Medicine 09/21/21
== END 2024-12-03 11:10 | disposition home or self-care (01) ==
LOC: HO.LAB 11:09
PROVIDERS: PCP Internal Medicine; Visit Provider Nurse Practitioner
DX: R79.89 Other specified abnormal findings of blood chemistry (principal); K21.9 Gastro-esophageal reflux disease without esophagitis; K58.2 Mixed irritable bowel syndrome; E11.21 Type 2 diabetes mellitus with diabetic nephropathy; Q61.3 Polycystic kidney, unspecified
CPT/HCPCS: 36415; 80053; 99212

== ENCOUNTER 2024-12-09 15:14 | Outpatient (REF) | payer OTHER, SELFPAY ==
[2024-12-09 15:33] LABS: MANUAL DIFF FLAG NO
--- OUTSIDE RECORDS SUMMARY | 2024-12-09 15:48 | XMS_ITS | Clinical Summary ---
Author Organization [facility] Address [address] [place] [address] Phone Care Team Providers Care Rehabilitation Therapy Technician Name Role Phone Zeb Ca MD Primary Care Provider +1- [phone] Allergies No known active allergies Medications zonisamide [...] diskus inhaler Activ e ergocalciferol 1.25 MG (78688 UT) capsule Take 1 capsule by mouth [...] BEDTIME DAILY 360 tablet 12/02/19 25 Active pregabalin (LYRICA) 100 MG capsule Take 100 mg by mouth 12/04/19 25 Active rosuvastatin (CRESTOR) 5 MG tablet Take 5 mg by mouth 1 (one) time each day 11/22/19 25 Active Lokelma 10 g pack TAKE 10 G BY MOUTH 5 (FIVE) TIMES A WEEK TAKE 10 MG BY MOUTH 5 ( FIVE) TIME A WEEK 11/17/19 25 Active LORazepam (ATIVAN) 0.5 MG tablet Take 0.5 mg by mouth every 6 hours as needed Active calcitriol (Rocaltrol) 0.25 MCG capsule Take 1 capsule (0.25 mcg total) by mouth every other day 45 capsule 3 12/10/19 25 026 Active sodium bicarbonate 650 MG tablet TAKE [...] Encounters Date Type Department Care Team Description 12/09/2024 4:15 PM EDT Office Visit [facility] [address] [place] [address] Nelson Knowles MD Chronic kidney disease, stage 4 (severe) ([facility]) (Primary Dx); Renal osteodystrophy 11/30/2024 Refill [facility] [address] [place] [address] Nelson Knowles MD from Last 3 Months [...] Sign Reading Time Taken Comments Blood Pressure 110/60 12/09/2024 2:45 PM EDT Pulse 66 12/09/2024 2:45 PM EDT Temperature - - Respiratory Rate - - Oxygen Saturation 99% 02/09/2024 1:53 PM EDT Inhaled Oxygen Concentration - - Weight 92.1 kg (203 lb) 12/09/2024 2:45 PM EDT Height - - Body Mass Index - - Plan of Treatment Upcoming Encounters Date Type Department Care Team (Latest Contact Info) Description 12/09/2024 4:15 PM EDT Office Visit [facility] [address] [place] [address] Nelson Knowles MD [address] [address] Chronic kidney disease, stage 4 (severe) (HCC) (Primary Dx); Renal osteodystrophy 06/27/2025 1:00 PM EST Office Visit [facility] [address] [place] [address] Nelson Knowles MD [address] [address] Health Maintenance Due Date Last Done [...] Diagnosis Comments ALT EXT LABS Routine 09/01/2024 from Last 3 Months or Most Recently Relevant to Health Maintenance Results * ALT EXT LABS (09/01/2024) Hemoglobin A1C 5.5 4.0 - 6.0 09/01/2024 [facility] Provider LAB BLOOD ORDERABLES Lizbeth l Result from Last 3 Months or Most Recently Relevant to Health Maintenance Insurance [facility] ([id number]) [facility] ([id number]) [place] [phone] Care Teams Rehabilitation Therapy Technician Relationship Specialty Start Date End Date Zeb Ca MD [address] [place] [address] [place] [id number] PCP - General Internal Medicine 09/21/21
--- OUTSIDE RECORDS SUMMARY | 2024-12-09 15:48 | XMS_ITS | Encounter Summary ---
Author Organization [facility] Address [address] [address] Phone Care Team Providers Care Family Health Nurse Practitioner Name Role Phone Zeb Ca MD Primary Care Provider +1- [phone] Reason for Referral * Consultation (Routine) - Pending Review Specialty Diagnoses / Procedures Referred By Tai paet Referred To Contact Transplant Surgery Diagnoses Chronic kidney disease, stage 4 (severe) (HCC) Renal osteodystrophy Nelson Knowles MD [address] [address] Phone: tel: fax: Referral ID Status Reason Start Date Expiration Date Visits Requested Visits Authorized [id number] Pending Review Specialty Services Required 12/09/2024 12/09/2025 1 1 Reason for Visit * Reason Comments Chronic Kidney Disease Encounter Details Date Type Department Care Team (Latest Contact Info) Description 12/09/2024 4:15 PM EDT Office Visit [facility] [address] [place] [phone] Nelson Knowles MD [address] [address] Chronic kidney disease, stage 4 (severe) (HCC) (Primary Dx); Renal osteodystrophy Social History Tobacco Use Types Packs/Day Years [...] - Inhaled Oxygen Concentration - - Weight 92.1 kg (203 lb) 12/09/2024 2:45 PM EDT Height - - Body Mass Index - - documented in this encounter Patient Instructions * Patient Instructions* Nelson Knowles MD - 12/09/2024 4:15 PM EDT No NSAIDS - Do not take non-steroidal anti-inflammatory medications (NSAIDS) such as Ibuprofen (Advil, Motrin, etc), Naproxen (Aleve, etc), Celecoxib (Celebrex) or Ketoprofen. These common arthritis medications can cause permanent kidney damage or worsen your kidney damage. For mild occasional pain, Acetaminophen (Tylenol, etc) is safe for your kidneys. Sodium and Your CKD Diet: How to Spice Up Your Cooking What is sodium? Sodium is a mineral found naturally in foods and is the major part of table salt. What are the effects of eating too much sodium? When your kidneys are not healthy, extra sodium and fluid build up in your body. This can cause swollen ankles, puffiness, a rise in blood pressure, shortness of breath, and/or fluid around your heart and lungs. See the following table for suggestions on how to reduce sodium in your diet. LIMIT THE [AMOUNT OF... FOOD TO LIMIT BECAUSE OF THEIR HIGH SODIUM CONTENT ACCEPTABLE SUBSTITUTES SALT & SALT SEASONINGS Table salt Seasoning salt Garlic salt Onion salt Celery salt Lemon pepper Lite salt Meat tenderizer Bouillon cubes Flavor enhancers Fresh garlic, fresh onion, garlic powder, onion powder, black [pepper, lemon juice, low-sodium/salt-free seasoning blends, vinegar SALTY FOODS Barbecue sauce Steak sauce Soy sauce Teriaky sauce Oyster sauce Salted Snacks such as Crackers Potato chips [place] chips Pretzels Tortilla chips Nuts Popcorn [place] seeds Homemade or low- sodium sauces and salad dressings; Vinegar, dry mustard, unsalted popcorn, pretzels, tortilla or corn chips Cured Foods Ham Salt pork Arcos Sauerkraut Pickles, pickle relish Lox & [place] Olives Fresh beef, veal, pork, poultry, fish, eggs [place] MEATS Hot Dogs Cold cuts, deli meats Pastrami Sausage Corned beef Spam Low-salt deli meats PROCESSED FOODS Buttermilk Cheese Canned: Soups Tomato products Vegetable juices Canned vegetables Convenience Foods such as: TV Dinners Canned raviolis [place] Macaroni & Cheese Spaghetti Frozen prepared foods Fast foods Natural cheese (1-2 oz Per week) Homemade or keyla,1- sodium soups, canned food without added salt Homemade casseroles without added salt, made with fresh or raw vegetables, fresh meat, hollis, pasta, or unsalted canned vegetables Some salt or sodium is needed for body water balance. But when your kidneys lose the ability to control sodium and water balance, you may experience the following: thirst fluid gain high blood pressure discomfort during dialysis By using less sodium in your diet, you can control these problems. Hints to keep your sodium intake down Cook with herbs and spices instead of salt. (Refer to Spice Up Your Cooking section for further suggestions.) Read food labels and choose those foods low in sodium. Avoid salt substitutes and specialty low-sodium foods made with salt substitutes because they are high in potassium. When eating out, ask for meat or fish without salt. Ask for gravy or sauce on the side; these may contain large amounts of salt and should be used in small amounts . Limit use of canned, processed and frozen foods. Some information about reading labels Understanding the terms: Sodium Free - Only a trivial amount of sodium per serving. Very Low Sodium - 35 mg or less per serving. Low Sodium - 140 mg or less per serving. Reduced Sodium - Foods in which the level of sodium is reduced by 25%. Light or Lite in Sodium - Foods in which the sodium is reduced by at least 50% . Simple rule of thumb : If salt is listed in the first five ingredients, the item is probably too high in sodium to use. All food labels now have milligrams (mg) of sodium listed. Follow these steps when reading the sodiwn information on the label: 1. Know how much sodium you are allowed each day. Remember that there are 1000 milligrams (mg) in 1gram. For [id number], if your diet prescription is 2 grams of sodium , your limit is 2000 milligrams per day. Consider the sodium value or other food to be eaten during the day. 2. Look at the package label. Check the serving size. Nutrition values are expressed per walter g. How does this compare to your total daily allowance? If the sodium level is 500 mg or more per serving, the item is not a good choice. 3. Compare labels of similar products. Select the lowest sodium level for the same serving size. How to Spice Up Your Cooking Giving up salt does not mean giving up flavor. Learn to season your food with herbs and spices. Be creative and experiment for a new and exciting flavor. What kinds of spices and herbs should I use instead of salt to add flavor? Try the following spices with the foods listed. Allspice: Use with beef, fish, beets, cabbage, canots, peas, fruit. Basil: Use with beef, pork, most vegetables. [place]: Use with beef, pork, most vegetables. [place]: Use with beef, pork, green beans, cauliflower, cabbage, beets, asparagus, and in dips and marinades. Cardamom: Use with fruit and in baked goods. Thomas: Use with beef, chicken, pork, fish, green beans, carrots and in marinades. Dill: Use with beef, chicken, green beans, cabbage, carrots, peas and in dips. Raiza: Use with beef, chicken, pork, green beans, cauliflower and eggplant. Marjoram: Use with beef, chicken, pork, green beans, cauliflower and eggplant. Cori: Use with chicken, pork, cauliflower, peas and in marinades. Thyme: Use with beef, chicken, pork, fish, green beans, beets and carrots. Arnoldo: Use with chicken, pork, eggplant and in dressing. Tarragon: Use with fish, chicken, asparagus, beets, cabbage, cauliflower and in marinades. Tips for cooking with herbs and spices Purchase spices and herbs in small amounts . When they sit on the shelf for years they lose their flavor. Use no more than ?? teaspoon of dried spice (?? of fresh) per pound of meat. Add ground spices to food about 15 minutes before the end of the cooking period. Add whole spices to food at least one hour before the end of the cooking period. Combine herbs with oil or butter, set for 30 minutes to bring out their flavor, then brush on foodswhile they cook, or brush meat with oil and sprinkle herbs one hour before coolcing. Crush dried herbs before adding to foods. Can I use salt substitutes? Caution! If you are told to limit potassium in your diet, be very cautious about using salt substitutes because most of them contain some form of potassium. Check with your doctor or dietitian beforeusing and salt substitute. [place] and create your own seasoning containing those spices that you like. If you would like to become a volunteer and find out more about what's happening where you live, contact your local [facility] Affiliate. Blood pressure monitoring education: Monitor home blood pressure values after sitting for 5 minutes with back and arm support. Keep a log. Bring your log and blood pressure cuff to your next visit. documented in this encounter Plan of Treatment Upcoming Encounters Date Type Department Care Team (Late st Contact Info) Description 06/27/2025 1:00 PM EST Office Visit [facility] [address] [place] [phone] Nelson Knowles MD [address] [facility] [address] [place] [address] Scheduled Orders Name Type Priority Associated Diagnoses Orde r Schedule PTH, Intact Lab Routine Chronic kidney disease, stage 4 (severe) (HCC) Renal osteodystrophy Expected: 05/11/2025, Expires: 01/09/2026 Renal Function Panel Lab Routine Chronic kidney disease, stage 4 (severe) (HCC) Renal osteodystrophy Expected: 05/11/2025, Expires: 01/09/2026 Urinalysis with microscopic Lab Routine Chronic kidney disease, stage 4 (severe) (HCC) Renal osteodystrophy Expected: 05/11/2025, Expires: 01/09/2026 Urine Albumin / Creatinine Ratio Lab Routine Chronic kidney disease, stage 4 (severe) (HCC) Renal osteodystrophy Expected: 05/11/2025, Expires: 01/09/2026 Urine Culture Lab Routine Chronic kidney disease, stage 4 (severe) (HCC) Renal osteodystrophy Expected: 05/11/2025, Expires: 01/09/2026 Protein, Total, Random Urine w/Creatinine (Protein/Creat Ratio) Lab Routine Chronic kidney disease, stage 4 (severe) (HCC) Renal osteodystrophy Expected: 05/11/2025, Expires: 01/09/2026 Vitamin D 25 Hydroxy Lab Routine Chronic kidney disease, stage 4 (severe) (HCC) Renal osteodystrophy Expected: 05/11/2025, Expires: 01/09/2026 CBC Lab Routine Chronic kidney disease, stage 4 (severe) (HCC) Renal osteodystrophy Expected: 05/11/2025, Expires: 01/09/2026 Phosphorus Lab Routine Chronic kidney disease, stage 4 (severe) (HCC) Renal osteodystrophy Expected: 05/11/2025, Expires: 01/09/2026 Magnesium Lab Routine Chronic kidney disease, stage 4 (severe) (HCC) Renal osteodystrophy Expected: 05/11/2025, Expires: 01/09/2026 Albumin Lab Routine Chronic kidney disease, stage 4 (severe) (HCC) Renal osteodystrophy Expected: 05/11/2025, Expires: 01/09/2026 Calcium Lab Routine Chronic kidney disease, stage 4 (severe) (HCC) Renal osteodystrophy Expected: 05/11/2025, Expires: 01/09/2026 Scheduled Referrals Name Type Priority Associated Diagnoses Orde r Schedule Ambulatory referral to Solid Organ Transplant Team Outpatient Referral Routine Chronic kidney disease, stage 4 (severe) (HCC) Renal osteodystrophy Expected: 12/09/2024, Expires: 01/09/2026 documented as of this encounter Visit Diagnoses Diagnosis Chronic kidney disease, stage 4 (severe) (HCC)- Primary Renal osteodystrophy documented in this encounter Care Teams Family Health Nurse Practitioner Relationship Specialty Start Date End Date Zeb Ca MD [address] [place] [address] DRIVE [address] [place] [address] PCP - General Internal Medicine 09/21/21 documented as of this encounter
--- OUTSIDE RECORDS SUMMARY | 2024-12-09 15:48 | XMS_ITS | Clinical Summary ---
Author Organization [address] [facility] Address 175 [place] [address] Phone Care Team Providers Care Data Modeling Specialist Name Role Phone Zeb Ca MD [...] mouth 1 (one) time each day. Active Hospital, Clinic, or Other Facility Administered Medication Ordered Dose Route Frequency Start Date End Date Status lidocaine (PF) (XYLOCAINE-MPF) 1 % injection 0.5 mLIndications:Bursit is of left foot .5 mL inj Once PRN Procedure 12/06/2024 12/06/2024 Ended triamcinolone acetonide (KENALOG-40) 40 mg/mL injection 20 mgIndications:Bursit is of left foot 20 mg IAtc Once PRN Procedure 12/06/2024 12/06/2024 Ended Active Problems Problem Noted Date Diagnosed Date Type 2 diabetes mellitus wit h hyperglycemia ([facility] V24, [facility] V28) 06/09/2024 Polycystic kidney disease 06/09/2024 GERD (gastroesophageal reflux disease) IBS (irritable bowel syndrome) 06/09/2024 Fatty liver 06/09/2024 Prolonged QT interval 06/09/2024 Encounters Date Type Department Care Team Description 12/06/2024 10:15 AM EDT Office Visit Orthopedic Surgery [facility] [address] [facility] [address] [place] [phone] Michael Mercedes, DPM Tendonitis, Achilles, left (Primary Dx); Bursitis of left foot; Dermatophytosis of nail; Corns and callosities; Type II diabetes mellitus with peripheral circulatory disorder ([facility] V24, [facility] V28); Metatarsalgia of both feet; Diabetic mononeuropathy simplex ([facility] V24, [facility] V28); Pain in toe of left foot; Pain in toe of right foot 11/15/2024 12:30 PM EDT Treatment [address] [phone] Jayro Powell, FANCY STITCHER Tendonitis, Achilles, left (Primary Dx) 11/01/2024 11:00 AM EDT Evaluation [address] [phone] Prosper De La Fuente, PT Tendonitis, Achilles, left (Primary Dx) from Last 3 Months Social History Tobacco [...] Care Team (Late st Contact Info) Description 03/09/2025 9:30 AM EDT Office Visit Orthopedic Surgery [facility] [address] [phone] Michael Mercedse, DPM [address] [address] Health Maintenance Due Date Last Done Comments [...] 03/05/2024 Social Influencers of Health Screening 03/05/2024 Diabetes: Annual Urine Albumin-Creatinine Ratio (uACR) 06/09/2024 Diabetes: Blood Sugar Control Test (HGBA1C) 06/09/2024 Hypertension/CHF/CAD Annual BMP Blood Test 06/09/2024 Influenza Vaccine (Season Ended) 2025 05/12/2023, 04/30/2022, 09/18/2021, Additional history exists COVID-19 Vaccine Completed 11/24/2024, 04/2023, 06/03/2022, Additional history exists HIB Vaccines Aged Out [...] will increase walking capacity to 2 hrs Procedures Procedure Name Priority Date/Time Associated Diagnosis Comments INJECTION TENDON OR LIGAMENT Routine 12/06/2024 10:15 AM EDT Bursitis of left foot from Last 3 Months Results * Injection tendon or ligament (12/06/2024 10:15 AM EDT) Narrative Michael Mercedes DPM - 12/06/2024 10:15 AM EDT Michael Mercedes DPM ? 12/06/2024 12:36 PM Injection tendon or ligament Indications: pain Details: 25 G needle Medications: 0.5 mL lidocaine (PF) 1 %; 20 mg triamcinolone acetonide 40 mg/mL Informed Consent: ??Site: ??Foot ligament tendon us Michael Mercedes DPM IN CLINIC/BEDSIDE ORDERAB LES Final Result from Last 3 Months Insurance [facility] Member Subscriber Plan / Payer (Ef fective 2015-Present) Name:Alexander Shaheen Chin Relation to Subscriber:Self Name:Shaheen Munoz Payer ID:[id number] Group ID:[id number] Type:Not on file Address: [facility] [address] [place] [phone] MEDICAID - [place] Care Teams Data Modeling Specialist Relationship Specialty Start Date End Date Zeb Ca MD [address] [place] [address] [address] [place] PCP - General Internal Medicine 05/07/24
--- OUTSIDE RECORDS SUMMARY | 2024-12-09 15:48 | XMS_ITS | Encounter Summary ---
Author [place] [address] Care Team Providers Care Clinical Phlebotomist Name Role Phone Zeb Ca MD Primary Care Provider [phone] Encounter Details Date Type Department Care Team (Late st Contact Info) Description 12/06/2024 10:15 AM EDT Office Visit Orthopedic Surgery - [place] [address] [phone] Michael Mercedes DPM [address] [address] Tendonitis, Achilles, left (Primary Dx); Bursitis of left foot; Dermatophytosis of nail; Corns and callosities; Type II diabetes mellitus with peripheral circulatory disorder (CMS/HCC V24, CMS/HCC V28); Metatarsalgia of both feet; Diabetic mononeuropathy simplex (CMS/HCC V24, CMS/HCC V28); Pain in toe of left foot; Pain in toe of right foot Social History Tobacco Use Types Packs/Day Years Used Date Smoking Tobacco: Never Assessed Sex and Gender Information Value Date Recorded Sex Assigned at Not on file Legal Sex Male 11:07 AM EDT Gender Identity Not on file Sexual Orientation Not on file documented as of this encounter Progress Notes * Michael Mercedes DPM - 12/06/2024 10:15 AM EDTAssociated Order(s): Injection tendon or ligament Post-Procedure Diagnose(s): Bursitis of left foot Last PCP visit:Referring MD: 04/16/24 Dr Roby [...] to him for his left ankle pain Patient also is getting lots of pain in the back of the ankle to he states his has tried exercises and stretching at home he states he is also tried some insoles and is a type II diabetic and needs new prescription for orthotics and insoles ROS: GENERAL: Pt denies nausea, fever, vomiting, [...] Diagnosis Type 2 diabetes mellitus with hyperglycemia ([facility] V24, [facility] V28) Polycystic kidney disease GERD (gastroesophageal reflux disease) IBS (irritable bowel syndrome) Fatty liver Prolonged QT interval SOCIAL HISTORY: Social History Tobacco Use Smoking status: Not on file Smokeless tobacco: Not on file Substance Use Topics Alcohol use: Not on file ACTIVE MEDICATIONS: No outpatient medications have been marked as taking for the 12/06/24 encounter (Appointment) with Michael Mercedes DPM. ALLERGIES: No Known Allergies PHYSICAL EXAM: There were no vitals taken for this visit. PODIATRIC EXAMINATION: GENERAL: Patient appears well nourished, [...] of the ankle joint and subtalar joint Pain with Palpation of retrocalcaneal bursa left DERMATOLOGICAL:. Toenails: Left Toenail(s) 1-5: Crumbling upon [...] IMAGING: IMPRESSION: 1. Tendonitis, Achilles, left 2. Bursitis of left foot 3. Dermatophytosis of nail 4. Corns and callosities 5. Type II diabetes mellitus with peripheral circulatory disorder (CMS/HCC V24, CMS/HCC V28) 6. Metatarsalgia of both feet 7. Diabetic mononeuropathy simplex (CMS/HCC V24, CMS/HCC V28) 8. Pain in toe of left foot 9. Pain in toe of right foot PLAN: Pt was seen and examined, history reviewed. Patient is going to physical therapy several visits states he is not willing to go additional visits Revisited options unfortunately patient is not a good candidate for NSAIDs due to chronic kidney disease GERD he is also not a good candidate for steroids secondary to being diabetic although steroidoption including measure Dosepak were discussed which he declined Discussed in detail retrocalcaneal bursa injection discussed risks of injection as it is in close proximity to the Achilles tendon and does bear risk of compromising tendon weakening of tendon rupture of tendon amongst other risks including infection patient is willing to pursue elective procedure r etrocalcaneal bursa he is declining continue physical therapy fracture boot immobilization measure Dosepak New prescription for diabetic shoes and inserts provided Treatment options were discussed and reviewed including [...] with a number #15 scalpel blade x2 Injection of retrocalcaneal bursitis was performed after consent was obtained. Risks and benefits discussed in detail with patient and include but are not limited to risk of infection risk of recurrence . Injection given of half cc 1% lidocaine half cc of Kenalog 40 Injection tendon or ligament Indications: pain Details: 25 G needle Medications: 0.5 mL lidocaine (PF) 1 %; 20 mg triamcinolone acetonide 40 mg/mL Informed Consent: Site: Foot ligament tendon Michael Mercedes DPM documented in this encounter Plan of Treatment Upcoming Encounters Date Type Department Care Team (Late st Contact Info) Description 03/09/2025 9:30 AM EDT Office Visit Orthopedic Surgery - [place] [address] [phone] Michael Mercedes DPM [address] [address] documented as of this encounter Goals Goal Patient Goal Type Associated Problems Recent Progress Patient-Stated? Author No pain General Yes Prosper De La Fuente, PT PT STG x 8 visits from 11/01/2024 General No Prosper De La Fuente PT Note: [] Pt will increase hip abd strength to 4-/5 [] Pt will increase hip add to >3/5 [] Pt will increase ability to walk >40 min without being limited by pain [] Pt will be able to SLS x 10 sec [] Pt will report a 2/10 pain level decrease PT LTG x 15 visits from 11/01/2024 Prosper Stanley, PT Note: [] Pt will increase walking capacity to 2 hrs documented as of this encounter Procedures Procedure Name Priority Date/Time Associated Diagnosis Comments INJECTION TENDON OR LIGAMENT Routine 12/06/2024 10:15 AM EDT Bursitis of left foot documented in this encounter Results * Injection tendon or ligament (12/06/2024 10:15 AM EDT) Michael Romo DPM - 12/06/2024 10:15 AM EDT Michael Mercedes DPM ? 12/06/2024 12:36 PM Injection tendon or ligament Indications: pain Details: 25 G needle Medications: 0.5 mL lidocaine (PF) 1 %; 20 mg triamcinolone acetonide 40 mg/mL Informed Consent: ??Site: ??Foot ligament tendon us Michael Mercedes DPM IN CLINIC/BEDSIDE ORDERAB LES Final Result documented in this encounter Visit Diagnoses Diagnosis Tendonitis, Achilles, left- Primary Bursitis of left foot Dermatophytosis of nail Corns and callosities Type II diabetes mellitus with peripheral circulatory disorder ([facility] V24, [facility] V28) Type II or unspecified type diabetes mellitus with peripheral circulatory disorders, not stated as uncontrolled Metatarsalgia of both feet Diabetic mononeuropathy simplex ([facility] V24, [facility] V28) Type II or unspecified type diabetes mellitus with neurological manifestations, not stated as uncontrolled Pain in toe of left foot Pain in soft tissues of limb Pain in toe of right foot Pain in soft tissues of limb documented in this encounter Administered Medications Inactive Administered Medications - up to 3 most recent administrations Medication Order MAR Action Action Date Dose Rate Site lidocaine (PF) (XYLOCAINE-MPF) 1 % injection 0.5 mL 0.5 mL, injection, Once PRN Procedure, Starting on Fri12/06/24 at 1015, For 1 doseIndications:Bursitis of left foot Given 12/06/2024 10:15 AM EDT 0.5 mL triamcinolone acetonide (KENALOG-40) 40 mg/mL injection 20 mg 20 mg, intra-articular, Once PRN Procedure, Starting on Fri12/06/24 at 1015, For 1 doseIndications:Bursitis of left foot Given 12/06/2024 10:15 AM EDT 20 mg documented in this encounter Care Teams Clinical Phlebotomist Relationship Specialty Start Date End Date Zeb Ca MD [address] [place] [address] Dr [address] [place] PCP - General Internal Medicine 05/07/24 documented as of this encounter
[2024-12-09 17:16] LABS: Basophils Percent Auto 0.3 % (0-2); Eosinophils Absolute Auto 0.1 X10*3/uL (0.0-0.4); Eosinophils Percent Auto 1.9 % (0-4); Hematocrit 32.2 % (42.0-52.0); Hemoglobin 10.6 g/dl (14.0-18.0); Imm Gran Abs Auto 0.04 X10*3/uL (0.00-0.03); Imm Gran Pct Auto 0.5 % (0.0-0.4); Lymphocytes Percent Auto 27.7 % (20-40); Mean Corpuscular HGB Conc 32.9 g/dl (31.0-36.0); Mean Corpuscular Hemoglobin 29.4 pg (27.0-33.0); Mean Corpuscular Volume 89.2 fL (80.0-98.0); Mean Platelet Volume 9.5 fL (9.4-12.4); Monocytes Absolute Auto 0.6 X10*3/uL (0.1-1.2); Neutrophils Absolute Auto 4.5 x10*3/uL (2.0-8.3); Neutrophils Percent Auto 61.6 % (45-73); Platelet Count 215 X10*3/uL (160-400); Red Blood Count 3.61 X10*6/uL (4.60-5.80); Red Cell Distribution Width 13.5 % (11.0-16.0); White Blood Count 7.3 X10*3/uL (4.8-10.8)
[2024-12-09 17:51] LABS: Appearance Urine Clear; Color Urine Yellow; Glucose Urine UA 100 mg/dL (Negative); Leukocyte Esterase Urine Negative (Negative); Nitrite Urine Negative (Negative); PH 5.5 (5.0-9.0); Specific Gravity - Urine <= 1.005 (1.005-1.025); Urine Blood Negative (Negative); Urine Ketones Negative (Negative); Urine Protein Negative (Neg-Trace)
[2024-12-09 17:53] LABS: Parathyroid Hormone Intact 349.6 pg/mL (8.7-77.1)
[2024-12-09 17:57] LABS: Albumin Level 4.2 g/dL (3.5-5.0); Anion Gap 14 (12-20); Blood Urea Nitrogen 79 mg/dL (9-16); Calcium 8.4 mg/dL (8.4-10.2); Carbon Dioxide 19 mmol/L (22-29); Chloride 108 mmol/L (96-108); Estimated Glomerular Filt Rate 24; Magnesium 2.8 mg/dL (1.6-2.6); Sodium 136 mmol/L (135-145)
[2024-12-09 17:59] LABS: Creatinine Urine 20.36 mg/dL; Microalbum/Creatinine Ratio Ur 83.4 ug/mg cr (<30); Total Protein Urine Random < 7 mg/dL (<12)
[2024-12-09 18:06] LABS: Vitamin D 25-OH Total 47.9 ng/mL (>30)
== END 2024-12-09 15:15 | disposition home or self-care (01) ==
LOC: HO.LAB 15:14
PROVIDERS: PCP Internal Medicine; Visit Provider Internal Medicine Nephrology
DX: N18.4 Chronic kidney disease, stage 4 (severe) (principal); N25.0 Renal osteodystrophy
CPT/HCPCS: 36415; 80051; 81003; 82040; 82043; 82306; 82310; 82565; 82570; 83735; 83970; 84100; 84156; 84520; 85025; 87086

== ENCOUNTER → 2024-12-28 10:43 | Outpatient (BNVA) | payer OTHER, SELFPAY | PROVIDERS: PCP Internal Medicine; Visit Provider Dietitian, Registered ==

== ENCOUNTER 2025-01-18 07:48 | Outpatient (REF) | payer OTHER, SELFPAY ==
--- OUTSIDE RECORDS SUMMARY | 2025-01-18 07:53 | XMS_ITS | Clinical Summary ---
Author Organization [facility] Address [address] [place] [address] Phone Care Team Providers Care Pulp Drier Firer Name Role Phone Zeb Ca MD Primary Care Provider [phone] Allergies No known active allergies Medications zonisamide [...] diskus inhaler Activ e ergocalciferol 1.25 MG (70508 UT) capsule Take 1 capsule by mouth [...] the evening. Take with meals. 4 Active sodium bicarbonate 650 MG tablet TAKE 1 TABLET BY MOUTH IN THE MORNING, 1 TAB AT NOON, 1 TAB IN EVENING, AND 1 TAB AT BEDTIME DAILY 360 tablet 5 Active pregabalin (LYRICA) 100 MG capsule Take 100 mg by mouth 5 Active rosuvastatin (CRESTOR) 5 MG tablet Take 5 mg by mouth 1 (one) time each day 5 Active Lokelma 10 g pack TAKE 10 G BY MOUTH 5 (FIVE) TIMES A WEEK TAKE 10 MG BY MOUTH 5 ( FIVE) TIME A WEEK 5 Active LORazepam (ATIVAN) 0.5 MG tablet Take 0.5 mg by mouth every 6 hours as needed Active calcitriol (Rocaltrol) 0.25 MCG capsule Take 1 capsule (0.25 mcg total) by mouth every other day 45 capsule 3 5 12/10/19 26 Active Active Problems Problem Noted Date Diagnosed [...] Visit [facility] [address] [place] [address] Nelson Knowles MD Chronic kidney disease, stage 4 (severe) ([facility]) (Primary Dx); Renal osteodystrophy 11/30/2024 Refill [facility] [address] [place] [address] Nelson Knowles [...] Upcoming Encounters Date Type Department Care Team ([facility] st Contact Info) Description 06/27/2025 1:00 PM EST Office [facility] [address] [place] [address] Nelson Knowles MD [address] [facility] [address] [place] [address] Health Maintenance Due Date Last [...] Procedure Name Priority Date/Time Associated Diagnosis Comments URINALYSIS Routine 12/09/2024 5:08 PM EDT PROTEIN / CREATININE RATIO, URINE Routine 12/09/2024 5:08 PM EDT ALBUMIN, URINE, RANDOM Routine 12/09/2024 5:08 PM EDT VITAMIN D 25 HYDROXY Routine 12/09/2024 3:32 PM EDT ALBUMIN Routine 12/09/2024 3:32 PM EDT MAGNESIUM Routine 12/09/2024 3:32 PM EDT PHOSPHATE ( PHOSPHORUS) Routine 12/09/2024 3:32 PM EDT CALCIUM Routine 12/09/2024 3:32 PM EDT CREATININE, BLOOD Routine 12/09/2024 3:3 2 PM EDT BUN Routine 12/09/2024 3:32 PM EDT ELECTROLYTE PANEL Routine 12/09/2024 3:3 2 PM EDT PTH, INTACT (HC) Routine 12/09/2024 3:32 PM EDT CBC AND DIFFERENTIAL Routine 12/09/2024 3:32 PM EDT ALT EXT LABS Routine 09/01/2024 from Last 3 Months or Most Recently Relevant to Health Maintenance Results * Protein, Total, Random Urine w/Creatinine (Protein/Creat Ratio) (12/09/2024 5:08 PM EDT) Protein Urine Random <7 <12 mg/dL See order comments Protein/Creatin ine Ratio, Urine TNP <0.2 See order comments Comment: Unable to calculate urine protein creatinine ratio due to low creatinine or protein result. 12/09/2024 5:08 PM EDT 12/09/2024 5:08 PM EDT Nelson Knowles MD LAB URINE ORDERABLES Final Re sult Performing Organization Address [facility] de Phone Number [place] See order comments [place] [address] * (ABNORMAL) Albumin, urine, random (12/09/2024 5:08 PM EDT) Creatinine, Urine 20.36 mg/dL Se e order comments Urine Microalbumin 17.0 mg/L See order comments Microalbumin/Crea tinine Ratio 83.4(H) <30 ug/mg cr See order comments Comment: ?Albumin/Creatinine Ratio Reference Ranges: ?Normal: < 30 ug/mg creatinine ?Microalbuminuria: ??30 - 300 ug/mg creatinine Clinical Albuminuria: ??> 300 ug/mg creatinine 12/09/2024 5:08 PM EDT 12/09/2024 5:08 PM EDT Nelson Knowles MD LAB URINE ORDERABLES Final Re sult Performing Organization Address [facility] de Phone Number [place]EV[place] See order comments [place] [address] * (ABNORMAL) Urinalysis (12/09/2024 5:08 PM EDT) Color Urine Yellow See orde r comments Appearance Urine Clear See order comments pH Urine 5.5 5.0 - 9.0 See order comments Glucose Urine 100(A) Negative mg/dL See order comments Blood, Urine Negative Negative See ord er comments Specific [place] Urine <=1.005 1.005 - 1.025 See order comments Protein Urine Negative Neg-Trace mg/dL See order comments Ketones, Urine Negative Negative mg/dL See order comments Nitrite, Urine Negative Negative See o rder comments Leukocyte Esterase Urine Negative Negative See order comments 12/09/2024 5:08 PM EDT 12/09/2024 5:08 PM EDT Nelson Knowles MD LAB URINE ORDERABLES Final Re sult Performing Organization Address [facility] Phone Number [place] See order comments [place] [address] * (ABNORMAL) Creatinine (12/09/2024 3:32 PM EDT) Creatinine Serum 2.74(H) 0.5 - 1.4 mg/dL See order comments eGFR (Calc) 24 See orde r comments Comment: Chronic Kidney Disease: ??Estimated GFR < 60 mL/min/1.73m2 Severe Kidney Disease: ??Estimated GFR < 15 mL/min/1.73m2 12/09/2024 3:32 PM EDT 12/09/2024 3:32 PM EDT Nelson Knowles MD LAB BLOOD ORDERABLES Final Re sult Performing Organization Address [facility] Phone Number [place] See order comments [place] [address] * (ABNORMAL) PTH, Intact (12/09/2024 3:32 PM EDT) Parathyroid Hormone, Intact 349.6(H) 8.7 - 77.1 pg/mL See order comments 12/09/2024 3:32 PM EDT 12/09/2024 3:32 PM EDT Nelson Knowles MD LAB [id number] SOLICITED RESULTS Final Result Performing Organization Address [facility] Phone Number [facility] [place]SA See order comments [place] [address] * Vitamin D 25 Hydroxy (12/09/2024 3:32 PM EDT) Vitamin D, 25-Hydroxy 47.9 >30 ng/mL See order comments Comment: Health Based Reference Values* < 20 ??ng/mL ??Deficient 20-30 ng/mL ??Insufficient > 30 ??ng/mL ??Sufficient *Bola ODEN. N Engl J Med. 2007;357:266-280 There is no well-established upper level of normal vitamin D levels. Some laboratories use 50 ng/mL as an upper limit of normal. However, toxicity is patient-dependent and may occur at any level. Careful correlation with the patient's presentation is necessary and, if there is concern for vitamin D toxicity, treatment should be considered irrespective of the serum level. Care must be taken in interpreting Vitamin D results from different laboratories and methodologies. ??Published data demonstrated that results from patients undergoing hemodialysis may show a negative bias when tested with various automated 25-OH vitamin D assays when compared to LC-MS/MS. When testing samples from patients whose predominant form of Vitamin D is Vitamin D2, such as patients receiving Vitamin D2 supplementation, results that are subtherapeutic should be confirmed with another method such as LC-MS/MS. 12/09/2024 3:32 PM EDT 12/09/2024 3:32 PM EDT us Nelson Knowles MD LAB BLOOD ORDERABLES Final Re sult [place] See order comments [place] [address] * (ABNORMAL) CBC and Differential (12/09/2024 3:32 PM EDT) WBC 7.3 4.8 - 10.8 X10*3/uL See order comments RBC 3.61(L) 4.60 - 5.80 X10*6/uL See order comments Hgb 10.6(L) 14.0 - 18.0 g/dl See order comments Hematocrit 32.2(L) 42.0 - 52.0 % See order comments MCV 89.2 80.0 - 98.0 fL See order comments MCH 29.4 27.0 - 33.0 pg See order comments MCHC 32.9 31.0 - 36.0 g/dl See order comments RDW 13.5 11.0 - 16.0 % See order comments Platelets 215 160 - 400 X10*3/uL See order comments MPV 9.5 9.4 - 12.4 fL See order comments Neutrophils % Auto 61.6 45 - 73 % See order comments Immature Granulocytes 0.5(H) 0.0 - 0.4 % See order comments Lymphocytes Relative 27.7 20 - 40 % See order comments Monocytes 8.0 2 - 11 % See order comments Eosinophils Relative 1.9 0 - 4 % See order comments Basophils Relative 0.3 0 - 2 % See order comments nRBC Count 0.0 0.0 - 0.2 /100WBC See order comments Neutrophils Absolute 4.5 2.0 - 8.3 x10*3/uL See order comments Immature Grans (Absolute) 0.04(H) 0.00 - 0.03 X10*3/uL See order comments Lymphocytes Absolute 2.0 1.2 - 4.9 X10*3/uL See order comments Monocytes Absolute 0.6 0.1 - 1.2 X10*3/uL See order comments Eosinophils Absolute 0.1 0.0 - 0.4 X10*3/uL See order comments Basophils Absolute 0.0 0.0 - 0.2 X10*3/uL See order comments NRBC Absolute 0.000 0.0 - 0.012 X10*3/uL See order comments 12/09/2024 3:32 PM EDT 12/09/2024 3:32 PM EDT Nelson Knowles MD LAB BLOOD ORDERABLES Final Re sult Performing Organization Address [facility] Co de Phone Number [place] See order comments [place] [address] * (ABNORMAL) BUN (12/09/2024 3:32 PM EDT) BUN 79(H) 9 - 16 mg/dL See order comments 12/09/2024 3:32 PM EDT 12/09/2024 3:32 PM EDT Nelson Knowles MD LAB BLOOD ORDERABLES Final Re sult Performing Organization Address [facility] Co de Phone Number [place] See order comments [place] [address] * (ABNORMAL) Phosphorus (12/09/2024 3:32 PM EDT) Phosphorus, Serum 5.0(H) 2.7 - 4.5 mg/dL See order comments 12/09/2024 3:32 PM EDT 12/09/2024 3:32 PM EDT us Nelson Knowles MD LAB BLOOD ORDERABLES Final Re sult Performing Organization Address [facility] Phone Number [place] See order comments [place] [address] * (ABNORMAL) Magnesium (12/09/2024 3:32 PM EDT) Magnesium 2.8(H) 1.6 - 2.6 mg/dL See order comments 12/09/2024 3:32 PM EDT 12/09/2024 3:32 PM EDT us Nelson Knowles MD LAB BLOOD ORDERABLES Final Re sult Performing Organization Address [facility] Number [place] See order comments [place] [address] * Calcium (12/09/2024 3:32 PM EDT) Calcium 8.4 8.4 - 10.2 mg/dL See order comments 12/09/2024 3:32 PM EDT 12/09/2024 3:32 PM EDT us Nelson Knowles MD LAB BLOOD ORDERABLES Final Re sult Performing Organization Address [facility] Phone Number [place] See order comments [place] [address] * Albumin (12/09/2024 3:32 PM EDT) Albumin 4.2 3.5 - 5.0 g/dL See order comments 12/09/2024 3:32 PM EDT 12/09/2024 3:32 PM EDT us Nelson Knowles MD LAB BLOOD ORDERABLES Final Re sult Performing Organization Address [facility] Phone Number [place] See order comments [place] [address] * (ABNORMAL) Electrolyte panel (12/09/2024 3:32 PM EDT) Sodium 136 135 - 145 mmol/L See order comments Potassium 5.0 3.3 - 5.1 mmol/L See order comments Chloride 108 96 - 108 mmol/L See order comments Bicarbonate (CO2) 19(L) 22 - 29 mmol/L See order comments Anion Gap 14 12 - 20 See order comments 12/09/2024 3:32 PM EDT 12/09/2024 3:32 PM EDT Nelson Knowles MD LAB BLOOD ORDERABLES Final Re sult [place] See order comments [place] [address] * ALT EXT LABS (09/01/2024) Pathologist [facility] Hemoglobin A1C 5.5 4.0 - 6.0 09/01/2024 Historical Provider LAB BLOOD ORDERABLES Lizbeth l Result from Last 3 Months or Most Recently Relevant to Health Maintenance Insurance [facility] ([id number]) JUST[place] ROSALES [id number] [facility] ([id number]) Care Teams Pulp Drier Firer Relationship Specialty Start Date End Date Zeb Ca MD [address] [place] [id number] PCP - General Internal Medicine 09/21/21
--- NOTE | 2025-01-18 08:10 | EMG_ITS ---
FINDINGS: Left tibial and peroneal motor studies were performed. Left superficial peroneal, sural, and median and lateral mixed plantar sensory studies were performed. Tibial H-reflex was obtained and paraspinal muscles were tested with a needle. IMPRESSION: Moderately severe sensory and motor chronic peripheral neuropathy with features of demyelination and axonal loss. MD DESMOND Sutherland/STEPHANI / [phone]
== END 2025-01-18 07:49 | disposition home or self-care (01) ==
LOC: HO.NEURO 07:48
PROVIDERS: PCP Internal Medicine; Visit Provider Internal Medicine
DX: G60.8 Other hereditary and idiopathic neuropathies (principal); R20.2 Paresthesia of skin
CPT/HCPCS: 95886; 95910

== ENCOUNTER 2025-02-03 09:33 | Outpatient (REF) | payer OTHER, SELFPAY ==
--- NOTE | ~2025-02-03 | US_ITS ---
CLINICAL HISTORY: R79.89 - Other specified abnormal findings of blood chemistry US abdomen Comparison: None Findings: The visualized pancreatic head, aorta, and inferior vena cava are unremarkable. The liver is not well seen due to limited acoustic window, normal in size, grossly normal in echogenicity, no focal lesion is seen in the visualized liver. No bile duct dilatation. Common duct 3 mm diameter. Physiologic distention of the gallbladder, no stone is seen, avascular nonshadowing echogenic focus 4 mm along the gallbladder wall may reflect small polyp. No gallbladder wall thickening. Negative sonographic Moss's sign. Main portal vein shows antegrade flow. Bilateral kidneys are not well seen due to bowel gas shadowing, they appear enlarged with diffusely increased echogenicity, right kidney measures 16.3 cm in length, left kidney 16.6 cm in length, no apparent calculus or hydronephrosis. Numerous simple and septated cysts of the bilateral kidneys, dominant cyst of the each kidney is simple, 6.2 cm on the right, 5.0 cm on the left, please note multiple cysts including the septated cyst are not well visualized. Spleen is partially visualized, grossly normal, 10.6 cm in length. No free fluid in the right upper quadrant of the abdomen. Impression: 1. Suggestion of medical renal disease and polycystic kidney disease, renal cysts are not well visualized. 2. Probable 4 mm gallbladder polyp. This document has been electronically signed by: Teresa James MD on 02/04/2025 12:11:38
--- OUTSIDE RECORDS SUMMARY | 2025-02-03 09:54 | XMS_ITS | Patient Health Record ---
Author Organization [facility] Address [address] [place] [address] Care Team Providers Care Physicist [place] Name Role Phone Roby GUTIERREZ, [place] Primary Care Provider Unava Emiliano Miller Unavailable [phone] Reason For Referral No Information Plan Of Treatment No Information Insurance Providers Payer Name Payer Address Payer Phone Subscriber Number Group Number Insured Name Patient Relationship to Insured Coverage Start Date Coverage End Date [facility] [address] [place] [address] [id number] SAMEER HERR Self - patient is the insured
--- OUTSIDE RECORDS SUMMARY | 2025-02-03 09:54 | XMS_ITS | Clinical Summary ---
Author Organization [facility] Address [address] [place] [address] Phone Care Team Providers Care Tool Maintenance Worker Name Role Phone Zeb Ca MD Primary Care Provider [phone] Allergies No known active allergies Medications zonisamide [...] diskus inhaler Activ e ergocalciferol 1.25 MG (97143 UT) capsule Take 1 capsule by mouth [...] (one) time each day 11/22/19 25 Active LORazepam (ATIVAN) 0.5 MG tablet Take 0.5 mg by mouth every 6 hours as needed Active Sodium Zirconium Cyclosilicate (Lokelma) 10 g pack TAKE 10 G BY MOUTH 5 (FIVE) TIMES A WEEK TAKE 90 each 01/20/20 25 025 Active calcitriol (Rocaltrol) 0.25 MCG capsule Take 1 capsule (0.25 mcg total) by mouth every other day 45 capsule 3 01/28/20 25 026 Active Lokelma 10 g pack TAKE 10 G BY MOUTH 5 (FIVE) TIMES A WEEK TAKE 10 MG BY MOUTH 5 ( FIVE) TIME A WEEK 11/17/19 25 025 Discontinued calcitriol (Rocaltrol) 0.25 MCG capsule Take 1 capsule (0.25 mcg total) by mouth every other day 45 capsule 3 12/10/19 25 025 Discontinued(Re order (does not appear on AVS)) Active Problems Problem Noted Date Diagnosed Date Hyperkalemia 02/09/2024 Chronic kidney disease, stage 4 (severe) 022 Renal osteodystrophy 05/27/2022 Chronic kidney disease stage 3 11/29/2021 Essential hypertension 11/29/2021 Renal disorder due to type 2 diabetes mellitus 0 11/29/2021 Type 2 diabetes mellitus with peripheral angiopa thy 11/29/2021 Encounters Date Type Department Care Team Description 01/27/2025 Refill [facility] [address] [place] [phone] Shelley Grubbs 01/18/2025 Refill [facility] [address] [address] Nelson Knowles MD 12/09/2024 4:15 PM EDT Office Visit [facility] [address] [place] [address] Nelson Knowles MD Chronic kidney disease, stage 4 (severe) (HCC) (Primary Dx); Renal osteodystrophy 11/30/2024 Refill [facility] [address] [place] [address] Nelson Knowles [...] [facility] [address] [place] [address] Nelson Knowles MD [address] [address] Health Maintenance Due Date Last [...] 02/06/2024, 11/06/2023, Additional history exists Influenza Vaccine (#1) 2025 Procedures Procedure Name Priority Date/Time Associated [...] 5:08 PM EDT 12/09/2024 5:08 PM EDT us Nelson Knowles MD LAB URINE ORDERABLES Final Re sult Performing Organization Address [facility] de Phone Number [facility] See order comments [place] [address] * (ABNORMAL) Albumin, urine, random (12/09/2024 5:08 PM EDT) Creatinine, Urine 20.36 mg/dL Se e order comments Urine Microalbumin 17.0 mg/L See order comments Microalbumin/Crea tinine Ratio 83.4(H) <30 ug/mg cr See order comments Comment: Albumin/Creatinine Ratio Reference Ranges: Normal: < 30 ug/mg creatinine Microalbuminuria: 30 - 300 ug/mg creatinine Clinical Albuminuria: > 300 ug/mg creatinine 12/09/2024 5:08 PM EDT 12/09/2024 5:08 PM EDT us Nelson Knowles MD LAB URINE ORDERABLES Final Re sult Performing Organization Address [facility] Co de Phone Number [facility] See order comments [place] [address] * (ABNORMAL) Urinalysis (12/09/2024 5:08 PM EDT) Color Urine Yellow See orde r comments Appearance Urine Clear See order comments pH Urine 5.5 5.0 - 9.0 See order comments Glucose Urine 100(A) Negative mg/dL See order comments Blood, Urine Negative Negative See ord er comments Specific [place] Urine <=1.005 1.005 - 1.025 See order comments Protein Urine Negative Neg-Trace mg/dL See order comments Ketones, Urine Negative Negative mg/dL See order comments Nitrite, Urine Negative Negative See o rder comments Leukocyte Esterase Urine Negative Negative See order comments 12/09/2024 5:08 PM EDT 12/09/2024 5:08 PM EDT Nelson Knowles MD LAB URINE ORDERABLES Final Re sult Performing Organization Address [facility] Co de Phone Number [place] See order comments [place] [address] * (ABNORMAL) Creatinine (12/09/2024 3:32 PM EDT) Creatinine Serum 2.74(H) 0.5 - 1.4 mg/dL See order comments eGFR (Calc) 24 See orde r comments Comment: Chronic Kidney Disease: Estimated GFR < 60 mL/min/1.73m2 Severe Kidney Disease: Estimated GFR < 15 mL/min/1.73m2 12/09/2024 3:32 PM EDT 12/09/2024 3:32 PM EDT Nelson Knowles MD LAB BLOOD ORDERABLES Final Re sult Performing Organization Address [facility] Co de Phone Number [place] See order comments [place] [address] * (ABNORMAL) PTH, Intact (12/09/2024 3:32 PM EDT) Parathyroid Hormone, Intact 349.6(H) 8.7 - 77.1 pg/mL See order comments 12/09/2024 3:32 PM EDT 12/09/2024 3:32 PM EDT Nelson Knowles MD LAB [id number] SOLICITED RESULTS Final Result Performing Organization Address [facility] Co de Phone Number [place] See order comments [place] [address] * Vitamin D 25 Hydroxy (12/09/2024 3:32 PM EDT) Vitamin D, 25-Hydroxy 47.9 >30 ng/mL See order comments Comment: Health Based Reference Values* < 20 ng/mL Deficient 20-30 ng/mL Insufficient > 30 ng/mL Sufficient *Bola ODEN. N Engl J Med. 2007;357:266-280 [...] D results from different laboratories and methodologies. Published data demonstrated that results from patients undergoing [...] ORDERABLES Final Re sult Performing Organization Address [facility] Co de Phone Number [place] See order comments [place] [address] * (ABNORMAL) CBC and Differential (12/09/2024 3:32 [...] order comments [place] [address] * (ABNORMAL) BUN (12/09/2024 3:32 PM EDT) BUN 79(H) 9 - 16 mg/dL See order comments 12/09/2024 3:32 PM EDT 12/09/2024 3:32 PM EDT us Nelson Knowles MD LAB BLOOD ORDERABLES Final Re sult Performing Organization Address [facility] Phone Number [place] See order comments [place] [address] * (ABNORMAL) Phosphorus (12/09/2024 3:32 PM EDT) Phosphorus, Serum 5.0(H) 2.7 - 4.5 mg/dL See order comments 12/09/2024 3:32 PM EDT 12/09/2024 3:32 PM EDT us Nelson Knowles MD LAB BLOOD ORDERABLES Final Re sult Performing Organization Address [facility] Phone Number [place] See order comments [place] [address] * (ABNORMAL) Magnesium (12/09/2024 3:32 PM EDT) Magnesium 2.8(H) 1.6 - 2.6 mg/dL See order comments 12/09/2024 3:32 PM EDT 12/09/2024 3:32 PM EDT us Nelson Knowles MD LAB BLOOD ORDERABLES Final Re sult Performing Organization Address [facility] Phone Number [place] See order comments [place] [address] * Calcium (12/09/2024 3:32 PM EDT) Calcium 8.4 8.4 - 10.2 mg/dL See order comments 12/09/2024 3:32 PM EDT 12/09/2024 3:32 PM EDT us Nelson Knowles MD LAB BLOOD ORDERABLES Final Re sult Performing Organization Address [facility] de Phone Number [place] See order comments [place] [address] * Albumin (12/09/2024 3:32 PM EDT) Albumin 4.2 3.5 - 5.0 g/dL See order comments 12/09/2024 3:32 PM EDT 12/09/2024 3:32 PM EDT Nelson Knowles MD LAB BLOOD ORDERABLES Final Re sult Performing Organization Address [facility] Co de Phone Number [facility] See order comments [place] [address] * (ABNORMAL) Electrolyte panel (12/09/2024 3:32 PM [...] ORDERABLES Final Re sult Performing Organization Address [facility] Co de Phone Number [place] See order comments [place] [address] * ALT EXT LABS (09/01/2024) Hemoglobin A1C 5.5 4.0 - 6.0 09/01/2024 Historical Provider LAB BLOOD ORDERABLES Lizbeth l Result from Last 3 Months or Most Recently Relevant to Health Maintenance Insurance [facility] ([id number]) [facility] ([id number]) Care Teams Tool Maintenance Worker Relationship Specialty Start Date End Date Zeb Ca MD [address] [place] [address] PCP - General Internal Medicine 09/21/21
--- OUTSIDE RECORDS SUMMARY | 2025-02-03 09:54 | XMS_ITS | Clinical Summary ---
Author Organization 175 [facility] Address [address] [place] [address] Phone Care Team Providers Care Batch Records Clerk Name Role Phone Zeb Ca MD [...] Type 2 diabetes mellitus wit h hyperglycemia ([facility] V24, CMS/[facility] V28) 06/09/2024 Polycystic kidney disease 06/09/2024 GERD (gastroesophageal reflux disease) IBS (irritable bowel syndrome) 06/09/2024 Fatty liver 06/09/2024 Prolonged QT interval 06/09/2024 Encounters Date Type Department Care Team Description 12/06/2024 10:15 AM EDT Office Visit Orthopedic Surgery - [address] [phone] Michael Mercedes, DPM Tendonitis, Achilles, left (Primary Dx); Bursitis of left foot; Dermatophytosis of nail; Corns and callosities; Type II diabetes mellitus with peripheral circulatory disorder ([facility] V24, [facility] V28); Metatarsalgia of both feet; Diabetic mononeuropathy simplex ([facility] V24, [facility] V28); Pain in toe of left foot; Pain in toe of right foot 11/15/2024 12:30 PM EDT Treatment [facility] [address] [facility] [address] [place] [phone] Jayro Powell, [employer] AND STILL OPERATOR Tendonitis, Achilles, left (Primary Dx) from Last [...] Upcoming Encounters Date Type Department Care Team ([facility] st Contact Info) Description 03/09/2025 9:30 AM EDT Office Visit Orthopedic Surgery [facility] [address] [phone] Michael Mercedes, DPM [address] [address] Health Maintenance Due Date Last Done Comments [...] LTG x 15 visits from 11/01/2024 General Prosper Romano, PT Note: [] Pt will increase walking capacity to 2 hrs Procedures Procedure Name Priority Date/Time Associated Diagnosis Comments INJECTION TENDON OR LIGAMENT Routine 12/06/2024 10:15 AM EDT Bursitis of left foot from Last 3 Months Results * Injection tendon or ligament (12/06/2024 10:15 AM EDT) Michael Romo DPM - 12/06/2024 10:15 AM EDT Michael Mercedes DPM 12/06/2024 12:36 PM Injection tendon or ligament Indications: pain Details: 25 G needle Medications: 0.5 mL lidocaine (PF) 1 %; 20 mg triamcinolone acetonide 40 mg/mL Informed Consent: Site: Foot ligament tendon us Michael Mercedes DPM IN CLINIC/BEDSIDE ORDERAB LES Final Result from Last 3 Months Insurance [facility] MEDICARE Member Subscriber Plan / Payer (Ef fective 2015-Present) Name:Shaheen Munoz Relation to Subscriber:Self Name:Shaheen Munoz Payer ID:[id number] Group ID:[id number] Type:Not on file Address: [facility] [address] [address] MEDICAID - [place] Care Teams Batch Records Clerk Relationship Specialty Start Date End Date Zeb Ca MD [address] [place] [address] [address] [place], [place] PCP - General Internal Medicine 05/07/24
== END 2025-02-03 09:34 | disposition home or self-care (01) ==
LOC: HO.US 09:33
PROVIDERS: PCP Internal Medicine; Visit Provider Nurse Practitioner
DX: R79.89 Other specified abnormal findings of blood chemistry (principal)
CPT/HCPCS: 76700

== ENCOUNTER → 2025-02-03 09:34 | Outpatient (BNV) | payer OTHER, SELFPAY | PROVIDERS: PCP Internal Medicine; Visit Provider Radiology Diagnostic Radiology | DX: R79.89 Other specified abnormal findings of blood chemistry (principal) | CPT/HCPCS: 76700 ==

== ENCOUNTER 2025-02-07 09:42 | Outpatient (AMB) | payer OTHER, SELFPAY ==
--- NOTE | 2025-02-07 09:57 | A.OFFVIS_ITS ---
VS Expanded 02/07/25 09:58 Height 5 ft 9 in Weight 197 lb 12.074 oz BMI 29.2 Intake Visit Reasons: T2DM Allergies atorvastatin Adverse Reaction (Intermediate, Verified 02/16/25 10:53) elevated LFTs Nutrition Presentation Details: Pt presents for MNT f/u for T2DM Pt reports participating in mom's meal program, 2 meals/day Reports having a good appetite Breakfast: sausage meal or donut or bread with p.b jelly , diet soda Lunch: pasta/chicken or sandw from mom's meal Dinner: pasta meal with meatball, green beans snack: mixed fruits food frequency fruits: 1-2/d dairy : 2-3 /day, 1% milk or 2%/cheese mostly vegetables: 2 serving/daily fish 1x/wk , beef 2x/wk poultry 4-5 , eggs 3x/wk , beans 1 x/wk i Beverages: juice/water, diet sprite Physical activity : has gym membership , participates 2 times a week (stationary bike 45-60 min) A1c at 5.9 % on 11/2024 Pt denies hypoglycemia symptoms declines and refuses to use a glucometer BS Monitoring Most Recent Diabetes Results: Microalb/Creat Ratio, (<30) 83.4 ug/mg cr H 12/09/24 Creatinine, (0.5-1.4) 2.74 mg/dL H 12/09/24 BUN, (9-16) 79 mg/dL H 12/09/24 Sodium, (135-145) 136 mmol/L 12/09/24 Potassium, (3.3-5.1) 5.0 mmol/L 12/09/24 Chloride, (96-108) 108 mmol/L 12/09/24 Carbon Dioxide, (22-29) 19 mmol/L L 12/09/24 Calcium, (8.4-10.2) 8.4 mg/dL 12/09/24 Albumin, (3.5-5.0) 4.2 g/dL 12/09/24 [facility] Medical History (Updated 02/16/25 @ 12:16 by Zeb Ca MD) Peripheral neuropathy Essential hypertension Right shoulder pain Paresthesia of both lower extremities Type 2 diabetes mellitus with diabetic chronic kidney disease Type 2 diabetes mellitus with hyperglycemia Left shoulder pain Chronic kidney disease, stage 3 Difficulty walking Dental caries Preoperative examination Synovial cyst of elbow COVID-19 Type 1 diabetes Type 1 diabetes mellitus Polycystic kidney disease Lumbar spondylosis Degenerative joint disease of thoracic spine Overweight (BMI 25.0-29.9) Chronic kidney disease, stage 4 (severe) Prolonged QT interval Hyperkalemia Memory impairment Vitamin D deficiency Hypothyroidism Seizures Anxiety Fatty liver IBS (irritable colon syndrome) GERD (gastroesophageal reflux disease) Obesity (BMI 30-39.9) Schizoaffective disorder Asthma Epilepsy Pure hypercholesterolemia terminal carman (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 Surgical History History of surgery on lower extremity History of dental surgery H/O colonoscopy Family History Father No problems noted. 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 Cognitive needs: No Hearing needs: No Vision needs: Yes (glasses) Assessment & Plan Assessment & Plan (1) Type 2 diabetes mellitus with hyperglycemia: Code(s): E11.65 - Type 2 diabetes mellitus with hyperglycemia Category: Medical Qualifiers: Diabetes mellitus chcf insulin use: with superintendent marine oil terminal use Qualified Code(s): E11.65 - Type 2 diabetes mellitus with hyperglycemia; Z79.4 - assisted (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 Plan: Wt: 98kg Kg ( 11/26 ), 99kg (02/25) Est kcal needs as per 25kcal/kg bw: 2500 (40% carb, 30% protein/fat) Est fluid needs as per 25-30 ml/d: 2500 Est prot per day as per 1 g/kg bw: 100 Recommend fiber intake : 8-10 g per day and gradually increase to 25-28 g per day for women and 35-38 g for men or as tolerated Recommend sodium intake per day : less than 2000 mg Educated patient on: ( R = reviewed V = verbalizes understanding N/R = needs review N/A = not applicable * Food sources of carbohydrate, adequate serving sizes and its role in various health conditions: R ,v * Differences between complex carbohydrates a simple carbohydrates, role of fiber in diet: R * Lean protein sources of foods: R V * Differences between types of fats and role in diet (mono on saturated fat fatty acids, saturated fatty acids, trans fats): R * Food sources of sodium in salt and healthy modifications for heart health in kidney health: R,V * Healthy plate method concept: R V * Physical activity: Benefits a precaution: R * Hypoglycemia protocol (rule of 15): R V N/R * Dietary prevention of Hyperglycemia: R Patient Instructions: Include lean protein in your breakfast meal: 1-2 eggs follow healthy plate method Choose low sodium food options Coding Level of Care Code Nutr Indiv Subseq (16732) Diagnoses Type 2 diabetes mellitus with hyperglycemia, with long-term current use of insulin E11.65; Z79.4 Diabetes mellitus chcf insulin use: with superintendent marine oil terminal use Time Spent (min) 30
[2025-02-07 09:58] VITALS: BMI 29.2
--- OUTSIDE RECORDS SUMMARY | 2025-02-07 10:15 | XMS_ITS | Clinical Summary ---
Author Organization 175 [facility] Address [address] [place] [address] Phone Care Team Providers Care Exterminator Termite Name Role Phone Zeb Ca MD Primary Care Provider [phone] Allergies No known active allergies Medications albuterol [...] Type 2 diabetes mellitus wit h hyperglycemia ([facility] V24, [facility] V28) 06/09/2024 Polycystic kidney disease 06/09/2024 GERD (gastroesophageal reflux disease) IBS (irritable bowel syndrome) 06/09/2024 Fatty liver 06/09/2024 Prolonged QT interval 06/09/2024 Encounters Date Type Department Care Team Description 12/06/2024 10:15 AM EDT Office Visit Orthopedic Surgery - [address] [phone] Michael Mercedes, DPM Tendonitis, Achilles, left (Primary Dx); Bursitis of left foot; Dermatophytosis of nail; Corns and callosities; Type II diabetes mellitus with peripheral circulatory disorder ([facility] V24, [facility] V28); Metatarsalgia of both feet; Diabetic mononeuropathy simplex ([facility] V24, [facility] V28); Pain in toe of left foot; Pain in toe of right foot 11/15/2024 12:30 PM EDT Treatment [facility] 175 [facility] [address] [place] [phone] Jayro Powell, ROUTE SALESPERSON Tendonitis, Achilles, left (Primary Dx) from Last [...] Upcoming Encounters Date Type Department Care Team ([facility] st Contact Info) Description 03/09/2025 9:30 AM EDT Office Visit Orthopedic Surgery [facility] [address] [phone] Michael Mercedes, DPM [address] [address] Health Maintenance Due Date Last Done Comments [...] Final Result from Last 3 Months Insurance [facility] MEDICARE Member Subscriber Plan / Payer (Ef fective 2015-Present) Name:Shaheen Munoz Relation to Subscriber:Self Name:Shaheen Munoz Payer ID:[id number] Group ID:[id number] Type:Not on file Address: [facility] [address] [address] MEDICA[place] - [place] Care Teams Exterminator Termite Relationship Specialty Start Date End Date Zeb Ca MD [address] [place] [address] [address] [place], [place] PCP - General Internal Medicine 05/07/24
--- OUTSIDE RECORDS SUMMARY | 2025-02-07 10:15 | XMS_ITS | Patient Health Record ---
Author Organization [facility] Address [address] [place] [address] Care Team Providers Care Ground Helper Street Railway Name Role Phone Roby GUTIERREZ, [place] Primary Care Provider Unava Emiliano Miller Unavailable [phone] Reason For Referral No Information Plan Of Treatment No Information Insurance Providers Payer Name Payer Address Payer Phone Subscriber Number Group Number Insured Name Patient Relationship to Insured Coverage Start Date Coverage End Date [facility] [address] [place] [address] [id number] SAMEER HERR Self - patient is the insured
== END 2025-02-07 10:56 | disposition home or self-care (01) ==
LOC: HO.ENCR 09:43
PROVIDERS: PCP Internal Medicine; Visit Provider Dietitian, Registered
DX: E11.65 Type 2 diabetes mellitus with hyperglycemia (principal); Z79.4 Long term (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

== ENCOUNTER → 2025-02-07 09:42 | Outpatient (BNVA) | payer OTHER, SELFPAY | PROVIDERS: PCP Internal Medicine; Visit Provider Dietitian, Registered | DX: E11.65 Type 2 diabetes mellitus with hyperglycemia (principal); E11.22 Type 2 diabetes mellitus with diabetic chronic kidney disease; N18.4 Chronic kidney disease, stage 4 (severe); Z79.4 Long term (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; Z71.3 Dietary counseling and surveillance | CPT/HCPCS: 97803 ==

== ENCOUNTER → 2025-02-07 23:59 | Outpatient (BNV) | payer OTHER, SELFPAY | PROVIDERS: PCP Internal Medicine; Visit Provider Internal Medicine | DX: F25.9 Schizoaffective disorder, unspecified (principal); G40.909 Epilepsy, unspecified, not intractable, without status epilepticus; F43.10 Post-traumatic stress disorder, unspecified | CPT/HCPCS: G0179 ==

== ENCOUNTER 2025-02-16 09:38 | Outpatient (AMB) | payer OTHER, SELFPAY ==
--- NOTE | 2025-02-16 10:01 | MHC.PC.OV ---
Vital Signs 02/16/25 10:02 Height 5 ft 9 in Weight 195 lb BMI 28.8 BP 118/86 Blood Pressure Location Lt brachial Position Sitting Pulse 57 Pulse Source Pulse Oximeter Pulse Oximetry (%) 99 Oxygen Delivery Method Room Air Intake Visit Reasons: Follow up Cpr Instructor Required: No Accompanied by: Self / Same As Patient Allergies atorvastatin Adverse Reaction (Intermediate, Verified 02/16/25 10:53) elevated LFTs Medication List - Last Reconciled 02/16/25 by Zeb Ca MD albuterol sulfate 90 mcg/actuation 2 puffs inhalation Q4H PRN aripiprazole 5 mg PO DAILY dapagliflozin propanediol (Farxiga) 10 mg PO DAILY ergocalciferol (vitamin D2) 1,250 mcg PO WE@0900 fluoxetine 40 mg PO DAILY fluticasone propionate 220 mcg/actuation 1 puff PO BID lamotrigine (Lamictal) 200 mg PO BID levothyroxine 125 mcg PO DAILY@0600 lidocaine 5% 1 appl topical BEDTIME PRN lidocaine 5% 1 appl topical QID PRN 15 days lidocaine-prilocaine 2.5-2.5 % 1 appl topical TID PRN lisinopril 2.5 mg PO BID 90 days melatonin 5 mg PO BEDTIME omega 0-gpc-toe-fish oil 1,200 (144-216) mg (Fish Oil) 1 cap PO DAILY omeprazole 20 mg PO DAILY pregabalin (Lyrica) 100 mg PO BID rosuvastatin 5 mg PO DAILY sodium bicarbonate 650 mg PO QID sodium zirconium cyclosilicate (Lokelma) 10 grams PO MOWEFR@0900 trazodone 50 mg PO BEDTIME PRN zonisamide 100 mg PO QID Tobacco use date assessed: 02/16/25 Dental Screening Dental Screen Date: 02/16/25 Did you have a dental visit in the last 12 months?: Yes Did you have a dental problem in the last 6 months where you did not have access to dental care?: No Was dental information given to patient?: Patient has dentist HPI Follow up HPI Details Patient comes in today for his follow up visit States that he is currently planning to relocate to the [facility] sometime in March 2025 and wants to know what he needs to do about his medical issues going forward States that he was reportedly advised by one of his visiting nurses that he needs to get an approval from his PCP Patient states that he currently feels okay He denies any headaches or dizziness Denies any chest pains, no increased SOB No nausea/vomiting, no abdominal pain No change in bowel habits noted States that he had some labs done a couple of months ago and also had an abdominal US done about 2 weeks ago and he would like to know how his tests all came out [facility] Medical History (Updated 02/16/25 @ 12:16 by Zeb Ca MD) Peripheral neuropathy Essential hypertension Right shoulder pain Paresthesia of both lower extremities Type 2 diabetes mellitus with diabetic chronic kidney disease Type 2 diabetes mellitus with hyperglycemia Left shoulder pain Chronic kidney disease, stage 3 Difficulty walking Dental caries Preoperative examination Synovial cyst of elbow COVID-19 Type 1 diabetes Type 1 diabetes mellitus Polycystic kidney disease Lumbar spondylosis Degenerative joint disease of thoracic spine Overweight (BMI 25.0-29.9) Chronic kidney disease, stage 4 (severe) Prolonged QT interval Hyperkalemia Memory impairment Vitamin D deficiency Hypothyroidism Seizures Anxiety Fatty liver IBS (irritable colon syndrome) GERD (gastroesophageal reflux disease) Obesity (BMI 30-39.9) Schizoaffective disorder Asthma Epilepsy Pure hypercholesterolemia skilled nursing (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 Surgical History History of surgery on lower extremity History of dental surgery H/O colonoscopy Family History Father No problems noted. 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 1. Little interest or pleasure in doing things: nearly every day 2. Feeling down, depressed, or hopeless: nearly every day 3. Trouble falling or staying asleep, or sleeping too much: nearly every day 4. Feeling tired or having little energy: nearly every day 5. Poor appetite or overeating: nearly every day 6. Feeling bad about yourself - or that you are a failure or have let yourself or your family down: nearly every day 7. Trouble concentrating on things, such as reading the newspaper or watching television: nearly every day 8. Moving or speaking so slowly that other people could have noticed. Or the opposite - being so fidgety or restless that you have been moving around a lot more than usual: nearly every day 9. Thoughts that you would be better off or of hurting yourself in some way: nearly every day Total score: 27 Depression Screening Interpretation: Positive Depression Screening Follow-up: Existing condition and In treatment Depression Screening Done: Yes 52059 - PHQ-9 Billing: Yes Source: Developed by Drs. Emiliano Ledezma, Ashly Pat, Rohit Tilley and colleagues, with an educational danette from [employer]. Thrive Questionnaire Date Thrive assessed: 02/16/25 I am a: Patient What is your living situation today?: I have a steady place to live Within the past 12 months, did the food you bought not last and you didn't have the money to get more?: I choose not to answer this question Within the past 12 months, did you worry whether your food would run out before you got money to buy more?: I choose not to answer this question Do you have trouble paying for medicines?: No Do you have trouble getting transportation to medical appointments?: No Do you have trouble paying your heating and electricity bill?: No Do you have trouble taking care of your child, family member or friend?: No Currently or been in a relationship where the following occur: No concerns reported THRIVE Score: 0 AUDIT C Alcohol Use Questionnaire (AUDIT-C) 1. How often do you have a drink containing alcohol?: Never 3. How often do you have six or more drinks on one occasion?: Never Total Score: 0 Score Reviewed/Action Taken: Yes ELEUTERIO-7 AMB Questionnaire ELEUTREIO-7 Date ELEUTERIO - 7 assessed: 02/16/25 Feeling nervous, anxious, or on edge: 0 = Not at all Not being able to stop or control worryin = Not at all Worrying too much about different things: 0 = Not at all Trouble relaxin = Not at all Being so restless that it is hard to sit still: 0 = Not at all Becoming easily annoyed or irritable: 0 = Not at all Feeling afraid as if something awful might happen: 0 = Not at all Total ELEUTERIO-7 score (0-4 normal; 5-9 mild; 10-14 moderate; 15-21 severe): 0 Source: Developed by Drs. Emiliano Ledezma, Ashly Pat, Rohit Tilley and colleagues, with an educational danette from [employer]. Review of Systems Const Denies chills, Reports fatigue, Denies fever(s) and Denies headache(s) ENT Denies dysphagia, Denies dizziness, Denies otalgia, Denies headache(s), Denies neck pain, Denies odynophagia and Denies sore throat Card Denies chest pain, Denies palpitations and Denies dyspnea Resp Denies chest congestion, Denies cough and Denies dyspnea GI Denies abdominal pain, Denies constipation, Denies dysphagia, Denies heartburn, Denies diarrhea, Denies nausea, Denies odynophagia and Denies vomiting Denies difficulty urinating, Denies dysuria, Denies nocturia and Denies urinary frequency Musc Reports back pain (on and off), Denies arthralgias, Denies joint swelling and Denies neck pain Skin/Breast Denies rash Neuro Denies dizziness, Denies headache(s) and Reports paresthesias (in both feet - see HPI) Psych Reports anxiety and Reports depression (Rx helping) Endo Reports fatigue and Denies palpitations Physical exam (Primary Care) Vital Signs: Last Vital Signs Pulse 57 02/16/25 10:02 BP 118/86 02/16/25 10:02 Pulse Ox 99 02/16/25 10:02 Oxygen Delivery Method Room Air 02/16/25 10:02 BMI result Body Mass Index 28.8 Tobacco/Smoking Status: Tobacco use Status Tobacco use date assessed 02/16/25 02/16/25 10:06 Patient Tobacco Use Status Former Tobacco user 02/16/25 10:06 Tobacco use type Cigarette 02/16/25 10:06 e-Cigarette/Vaping Use Never Used 07/16/25 10:06 PHQ-9: PHQ-9 Score PHQ-9: Total score 27 02/16/25 10:06 Depression Screening Interpretation: Positive Depression Screening Follow-up: Existing condition and In treatment Thrive Assessment: Date of Thrive Assessment Date Thrive assessed 02/16/25 02/16/25 10:06 Currently or been in a relationship where the following occur: No concerns reported Const General: no acute distress and alert HENMT Ears: TM's normal bilaterally and EAC's normal Throat: Yes posterior oropharynx normal and Yes tonsils normal (no TP congestion noted) Neck Neck: Yes supple and No lymphadenopathy Thyroid: Thyroid normal Resp Auscultation: clear to auscultation bilaterally, no rales and no wheezes Cardio Rate: regular rate Rhythm: regular rhythm Heart sounds: no murmurs GI Palpation (GI): Soft to palpation and nontender Auscultation: normal bowel sounds General: Yes no CVA tenderness Back/Spine/Pelvis Back: no CVA tenderness Thoracic/Lumbar Spine: No lumbar spinal tenderness Skin Rashes: no rashes Extrem General: Yes no clubbing, cyanosis or edema Results Reviewed Results Reviewed: Laboratory Tests 12/01/24 12/03/24 12/09/24 09:49 11:46 15:28 WBC Hgb Hct Plt Count Sodium Potassium Creatinine Estimated GFR Hgb A1c (Clinic) 5.9 Calcium Phosphorus Magnesium AST 32 ALT 30 25-OH Vitamin D Total PTH Intact Ur Specific [place] <= 1.005 Urine Protein Negative Urine Glucose (UA) 100 H Urine Blood Negative Urine Nitrite Negative Ur Leukocyte Esterase Negative Microalb/Creat Ratio 83.4 H 12/09/24 15:32 WBC 7.3 Hgb 10.6 L Hct 32.2 L Plt Count 215 Sodium 136 Potassium 5.0 Creatinine 2.74 H Estimated GFR 24 Hgb A1c (Clinic) Calcium 8.4 Phosphorus 5.0 H Magnesium 2.8 H AST ALT 25-OH Vitamin D Total 47.9 PTH Intact 349.6 H Ur Specific [place] Urine Protein Urine Glucose (UA) Urine Blood Urine Nitrite Ur Leukocyte Esterase Microalb/Creat Ratio Coding Level of Care Code Est Pt Level 4 (21343) Complex EM visit Add On G2211 Diagnoses Type 1 diabetes mellitus with stage 4 chronic kidney disease E10.22; N18.4 Diabetes mellitus complication status: with kidney complications Diabetes mellitus complication detail: with chronic kidney disease Chronic kidney disease stage: stage 4 (GFR 15-29) Chronic kidney disease, stage 4 (severe) N18.4 Pure hypercholesterolemia E78.00 Hyperparathyroidism E21.3 Essential hypertension I10 Elevated LFTs R79.89 Polyneuropathy associated with underlying disease G63 Peripheral neuropathy type: polyneuropathy associated with underlying disease Vitamin D deficiency E55.9 Acquired hypothyroidism E03.9 Hypothyroidism type: acquired Mild intermittent asthma without complication J45.20 Asthma severity: mild Asthma persistence: intermittent Asthma complication type: uncomplicated Nonintractable epilepsy without status epilepticus, unspecified epilepsy type G40.909 Epilepsy type: unspecified Intractability: not intractable Status epilepticus: without status epilepticus Gastroesophageal reflux disease without esophagitis K21.9 Esophagitis presence: without esophagitis Schizoaffective disorder, unspecified type F25.9 Schizoaffective disorder type: unspecified Additional Codes PHQ-9 - 66911 - PHQ-9 Billing: Yes ([id number]) Assessment & Plan Assessment & Plan (1) Type 1 diabetes mellitus: Code(s): E10.9 - Type 1 diabetes mellitus without complications Category: Medical Qualifiers: Diabetes mellitus complication status: with kidney complications Diabetes mellitus complication detail: with chronic kidney disease Chronic kidney disease stage: stage 4 (GFR 15-29) Qualified Code(s): E10.22 - Type 1 diabetes mellitus with diabetic chronic kidney disease; N18.4 - Chronic kidney disease, stage 4 (severe) Plan: Patient has diabetes for years and recent testing (elevated CLAIR Ab in April 2024) indicate that he is a type 1 diabetic Reinforced diabetic diet - goal is HgbA1c of at least <7.0% His in-office HgbA1c was last recorded at 5.9% back on 12/01/2024 (HgbA1c was previously at 5.4% a few months ago) Continue Lantus 8 units SQ Q HS and Farxiga 10 mg QD (this was started by nephrology for his CKD) 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 and with endocrinology as scheduled (2) Chronic kidney disease, stage 4 (severe): Code(s): N18.4 - Chronic kidney disease, stage 4 (severe) Category: Medical Plan: His renal function appears stable on his most recent labs Continue Farxiga 10 mg QD and Lisinopril 2.5 mg QD Have emphasized again complete avoidance of all NSAIDs and tight control of his BP and blood sugar to slow down progression of his kidney disease His abdominal US done in November 2023 also incidentally revealed (+) enlarged kidneys replaced by innumerable cysts consistent with autosomal dominant polycystic kidney disease and bilateral nonobstructing renal calculi (3) Pure hypercholesterolemia: Code(s): E78.00 - Pure hypercholesterolemia, unspecified Category: Medical Plan: Results of his labs done a couple of months ago reviewed and discussed with patient Reinforced low cholesterol diet Continue Rosuvastatin at 5 mg QD Will not order any follow up labs at this time as patient is planning to relocate out of the [facility] next month He is instructed to call for lab orders in case his plan to move falls through and he is returning in a few months for his follow up visit (4) Hyperparathyroidism: Code(s): E21.3 - Hyperparathyroidism, unspecified Category: Medical Plan: His intact PTH level remains elevated and has gone up much higher than previous on his recent labs At this point, he will likely require parathyroidectomy but his advanced CKD may complicate his management Follow-up with endocrinology and with nephrology as scheduled (5) Essential hypertension: Code(s): I10 - Essential (primary) hypertension Category: Medical Plan: Reinforced low-sodium diet -? goal is systolic BP of at least 120 to 130 mm or less Continue Lisinopril 2.5 mg QD (6) Elevated LFTs: Comment: BASELINE LABS;: 03/30/2020 total bili 0.4, alk-phos is 165, AST/ALT is 27/34 11/20/23 06:50 Plt Count 219 Estimated GFR 24 Total Bilirubin 0.4 AST 134 H ALT 61 H Alkaline Phosphatase 153 H TSH 0.76 MONSE Screen NEGATIVE Anti-Mitochondrial Ab NEGATIVE Anti-Smooth Muscle Ab <20 Hepatitis A IgM Ab Nonreactive Hep Bs Antigen Negative Hep Bs Antibody NONREACTIVE Hep B Core Total Ab Nonreactive Hepatitis C Ab (EIA) Nonreactive HIV 1&2 Ab/P24 Ag 4thGn Nonreactive CURRENT LABS 11/19/2404/11/2404 14:0401:0903:57 Estimated GFR 19 Total Bilirubin 0.2 AST 17 ALT 15 Alkaline Phosphatase 137 H C-Reactive Protein 0.27 Lipase 65 MONSE Screen NEGATIVE Anti-Mitochondrial Ab NEGATIVE Anti-Smooth Muscle Ab <20 Hepatitis A IgM Ab Nonreactive Hep Bs Antigen Negative Hep Bs Antibody NONREACTIVE Hep B Core Total Ab Nonreactive Hepatitis C Ab (EIA) Nonreactive HIV 1&2 Ab/P24 Ag 4thGn Nonreactive LIVER FIBROSIS PANEL AND FERRITIN NOT OBTAINED ULTRASOUND OF THE ABDOMEN Code(s): R79.89 - Other specified abnormal findings of blood chemistry Category: Medical Plan: His LFTs have remained normal on his most recent labs - this was likely due to effects of his previous statin Rx (Atorvastatin) Abdominal US done in November 2023 revealed findings consistent with hepatic steatosis Patient is advised again that losing weight will help with his LFTs Patient had a repeat abdominal US done a couple of weeks ago (ordered by GI) that showed findings of medical renal disease and polycystic kidney disease although the renal cysts are supposedly not well visualized. The view of the liver was also limited but there does not appear to be any abnormalities at this time. There is also a probable 4 mm gallbladder polyp seen incidentally (7) Peripheral neuropathy: Code(s): G62.9 - Polyneuropathy, unspecified Category: Medical Qualifiers: Peripheral neuropathy type: polyneuropathy associated with underlying disease Qualified Code(s): G63 - Polyneuropathy in diseases classified elsewhere Plan: Have advised patient that this is primarily the reason for the recurrent symptoms of paresthesia in his extremities MG and NCV extremities done last month (January 2025) revealed findings of moderately severe sensory and motor chronic peripheral neuropathy with features of demyelination and axonal loss Continue topical Lidocaine ointment 5% QID PRN for symptomatic reliefand Pregabalin 100 mg BID (8) Vitamin D deficiency: Code(s): E55.9 - Vitamin D deficiency, unspecified Category: Medical Plan: Continue Vitamin D2 60451 units once a week (9) Hypothyroidism: Code(s): E03.9 - Hypothyroidism, unspecified Category: Medical Qualifiers: Hypothyroidism type: acquired Qualified Code(s): E03.9 - Hypothyroidism, unspecified Plan: His TFTs remained normal on his recent labs Continue Levothyroxine 125 mcg QD (10) Asthma: Code(s): J45.909 - Unspecified asthma, uncomplicated Category: Medical Qualifiers: Asthma severity: mild Asthma persistence: intermittent Asthma complication type: uncomplicated Qualified Code(s): J45.20 - Mild intermittent asthma, uncomplicated Plan: Controlled Continue Albuterol HFA 2 inhalations up to 4 times a day as needed Follow up with pulmonary as scheduled (11) Epilepsy: Code(s): G40.909 - Epilepsy, unspecified, not intractable, without status epilepticus Category: Medical Qualifiers: Epilepsy type: unspecified Intractability: not intractable Status epilepticus: without status epilepticus Qualified Code(s): G40.909 - Epilepsy, unspecified, not intractable, without status epilepticus Plan: EEG done in the past showed findings consistent with partial complex seizure - patient states that he has not had any seizures lately Continue Zonisamide 100 mg QID Follow-up with Neurology as scheduled (12) GERD (gastroesophageal reflux disease): Code(s): K21.9 - Gastro-esophageal reflux disease without esophagitis Category: Medical Qualifiers: Esophagitis presence: without esophagitis Qualified Code(s): K21.9 - Gastro-esophageal reflux disease without esophagitis Plan: Dietary restrictions reinforced Continue Omeprazole 20 mg QD (13) Schizoaffective disorder: Code(s): F25.9 - Schizoaffective disorder, unspecified Category: Medical Qualifiers: Schizoaffective disorder type: unspecified Qualified Code(s): F25.9 - Schizoaffective disorder, unspecified Plan: Continue Lamotrigine 200 mg twice a day, Zyprexa 5 mg daily at bedtime and Fluoxetine 40 mg QD Continue Trazodone 50 mg Q HS and Melatonin 5 mg Q HS Follow-up with Psychiatry as scheduled Plan Follow up in 4 months IF patient's plan to relocate to the [facility] falls through He is otherwise encouraged to look for a PCP in the [facility] as soon as possible to take over his medical care once he finishes relocating
[2025-02-16 10:02] VITALS: BP 118/86; PULSE 57; O2SAT 99; BMI 28.8
--- OUTSIDE RECORDS SUMMARY | 2025-02-16 10:12 | XMS_ITS | Clinical Summary ---
Author Organization [facility] Address [address] [place] [address] Phone Care Team Providers Care Pipe Bender Name Role Phone Zeb Ca MD Primary Care Provider [phone]- [phone] Allergies No known active allergies Medications zonisamide [...] diskus inhaler Activ e ergocalciferol 1.25 MG (29274 UT) capsule Take 1 capsule by mouth [...] Encounters Date Type Department Care Team Description 02/08/2025 Office Communication [facility] P.CLula [address] [place] [phone] Brenda Jiménez 01/27/2025 Refill [facility] [address] [phone] Shelley Grubbs 01/18/2025 Refill [facility] [address] [phone] Nelson Knowles MD 12/09/2024 4:15 PM EDT Office Visit [facility] [address] [place] [address] Nelson Knowles MD Chronic kidney disease, stage 4 (severe) (HCC) (Primary Dx); Renal osteodystrophy 11/30/2024 Refill [facility] [address] [place] [address] Nelson Knowles MD from Last 3 Months [...] Care Team (Late st Contact Info) Description 02/17/2025 10:45 AM EDT Office Visit [facility] [address] [phone] Nelson Knowles MD [address] [facility] [address] [place] [address] 06/27/2025 1:00 PM EST Office Visit [facility] [address] [place] [address] Nelson Knowles MD [address] [facility] [address] [place] [address] Health Maintenance Due Date Last [...] MD LAB URINE ORDERABLES Final Re sult [place] See order comments [place] [address] * (ABNORMAL) Albumin, urine, random (12/09/2024 5:08 [...] 5:08 PM EDT 12/09/2024 5:[address] [facility] Nelson Knowles MD LAB URINE ORDERABLES Final Re sult Performing Organization Address [facility] de Phone Number [place] See order comments [place] [address] * (ABNORMAL) Urinalysis (12/09/2024 5:08 PM EDT) Color Urine Yellow See orde r comments Appearance Urine Clear See order comments pH Urine 5.5 5.0 - 9.0 See order comments Glucose Urine 100(A) Negative mg/dL See order comments Blood, Urine Negative Negative See ord er comments Specific [place] Urine <=1.005 1.005 - 1.025 See order comments Protein Urine Negative Neg-Trace mg/dL See order comments Ketones, Urine Negative Negative mg/dL See order comments Nitrite, Urine Negative Negative See o rder comments Leukocyte Esterase Urine Negative Negative See order comments 12/09/2024 5:08 PM EDT 12/09/2024 5:08 PM EDT Result [facility] us Nelson Knowles MD LAB URINE ORDERABLES Final Re sult Performing Organization Address [facility] de Phone Number [place] See order comments [place] [address] * (ABNORMAL) Creatinine (12/09/2024 3:32 PM EDT) [...] sult Performing Organization Address [facility] Co de Phone Number LEVI See order comments [place] [address] * (ABNORMAL) PTH, Intact (12/09/2024 3:32 PM EDT) Parathyroid Hormone, Intact 349.6(H) 8.7 - 77.1 pg/mL See order comments 12/09/2024 3:32 PM EDT 12/09/2024 3:32 PM EDT Nelson Knowles MD LAB [id number] SOLICITED RESULTS Final Result Performing Organization Address [facility] Co de Phone Number [place]EV[place] See order comments [place] [address] * Vitamin D 25 Hydroxy (12/09/2024 3:32 [...] order comments [place] [address] * (ABNORMAL) CBC and Differential (12/09/2024 3:32 [...] sult Performing Organization Address [facility] Phone Number [place] See order comments [place] [address] * (ABNORMAL) BUN (12/09/2024 3:32 PM EDT) BUN 79(H) 9 - 16 mg/dL See order comments 12/09/2024 3:32 PM EDT 12/09/2024 3:32 PM EDT us Nelson Knowles MD LAB BLOOD ORDERABLES Final Re sult Performing Organization Address [facility] Phone [facility] See order comments [place] [address] * (ABNORMAL) Phosphorus (12/09/2024 3:32 PM EDT) Phosphorus, Serum 5.0(H) 2.7 - 4.5 mg/dL See order comments 12/09/2024 3:32 PM EDT 12/09/2024 3:32 PM EDT us Nelson Knowles MD LAB BLOOD ORDERABLES Final Re sult Performing Organization Address [facility] Phone Number [place] See order comments [place] [address] * (ABNORMAL) Magnesium (12/09/2024 3:32 PM EDT) Magnesium 2.8(H) 1.6 - 2.6 mg/dL See order comments 12/09/2024 3:32 PM EDT 12/09/2024 3:32 PM EDT us Nelson Knowles MD LAB BLOOD ORDERABLES Final Re sult Performing Organization Address [facility] de Phone Number [place] See order comments [place] [address] * Calcium (12/09/2024 3:32 PM EDT) Calcium 8.4 8.4 - 10.2 mg/dL See order comments 12/09/2024 3:32 PM EDT 12/09/2024 3:32 PM EDT us Nelson Knowles MD LAB BLOOD ORDERABLES Final Re sult Performing Organization Address [facility] de Phone Number [place] See order comments [place] [address] * Albumin (12/09/2024 3:32 PM EDT) Albumin 4.2 3.5 - 5.0 g/dL See order comments 12/09/2024 3:32 PM EDT 12/09/2024 3:32 PM EDT us Nelson Knowles MD LAB BLOOD ORDERABLES Final Re sult Performing Organization Address [facility] Phone Number [facility] See order comments [place] [address] * (ABNORMAL) Electrolyte panel (12/09/2024 3:32 PM [...] sult Performing Organization Address [facility] de Phone Number [place] See order comments [place] [address] * ALT EXT LABS (09/01/2024) Hemoglobin A1C 5.5 4.0 - 6.0 09/01/2024 Historical Provider LAB BLOOD ORDERABLES Lizbeth l Result from Last 3 Months or Most Recently Relevant to Health Maintenance Insurance [facility] ([id number]) [facility] ([id number]) Care Teams Pipe Bender Relationship Specialty Start Date End Date Zeb Ca MD [address] [place] [address] PCP - General Internal Medicine 09/21/21
--- OUTSIDE RECORDS SUMMARY | 2025-02-16 10:12 | XMS_ITS | Clinical Summary ---
Author Organization [facility] Address 175 [place] [address] Phone Care Team Providers Care Biztalk Architect Name Role Phone Zeb Ca MD Primary [...] Type 2 diabetes mellitus wit h hyperglycemia ([facility] V24, [facility] V28) 06/09/2024 Polycystic kidney disease 06/09/2024 GERD (gastroesophageal reflux disease) IBS (irritable bowel syndrome) 06/09/2024 Fatty liver 06/09/2024 Prolonged QT interval 06/09/2024 Encounters Date Type Department Care Team Description 12/06/2024 10:15 AM EDT Office Visit Orthopedic Surgery - [address] [phone] Michael Mercedes, DPM Tendonitis, Achilles, left (Primary Dx); Bursitis of left foot; Dermatophytosis of nail; Corns and callosities; Type II diabetes mellitus with peripheral circulatory disorder ([facility] V24, [facility] V28); Metatarsalgia of both feet; Diabetic mononeuropathy simplex ([facility] V24, [facility] V28); Pain in toe of left foot; Pain in toe of right foot from Last 3 Months Social History Tobacco [...] AM EDT Office Visit Orthopedic Surgery - [place] [address] [phone] Michael Mercedes, DPM [address] [address] Health Maintenance Due Date Last Done Comments [...] Annual BMP Blood Test 06/09/2024 Influenza Vaccine (#1) 2025 , 04/30/2022, 09/18/2021, Additional history exists COVID-19 Vaccine [...] Final Result from Last 3 Months Insurance [employer] MEDICARE Member Subscriber Plan / Payer (Ef fective 2015-Present) Name:Shaheen Munoz Relation to Subscriber:Self Name:Shaheen Munoz Payer ID:[id number] Group ID:[id number] Type:Not on file Address: [address] [place] [address] [place] - [place] Care Teams Biztalk Architect Relationship Specialty Start Date End Date Zeb Ca MD [address] [place] [address] [place] [address] PCP - General Internal Medicine 05/07/24
--- OUTSIDE RECORDS SUMMARY | 2025-02-16 10:12 | XMS_ITS | Patient Health Record ---
Author Organization [facility] Address [address] [place] [address] Care Team Providers Care Kiln Placer Name Role Phone Roby GUTIERREZ, [place] Primary Care Provider Unava Emiliano Miller Unavailable [phone] Reason For Referral No Information Plan Of Treatment No Information Insurance Providers Payer Name Payer Address Payer Phone Subscriber Number Group Number Insured Name Patient Relationship to Insured Coverage Start Date Coverage End Date [address] [place] [address] [id number] SAMEER HERR Self - patient is the insured
== END 2025-02-16 10:59 | disposition home or self-care (01) ==
LOC: HO.HMCH 09:38
PROVIDERS: PCP Internal Medicine; Visit Provider Internal Medicine
DX: E10.22 Type 1 diabetes mellitus with diabetic chronic kidney disease (principal); N18.4 Chronic kidney disease, stage 4 (severe); E78.00 Pure hypercholesterolemia, unspecified; E21.3 Hyperparathyroidism, unspecified; I12.9 Hypertensive chronic kidney disease with stage 1 through stage 4 chronic kidney disease, or unspecified chronic kidney disease; R79.89 Other specified abnormal findings of blood chemistry; G63 Polyneuropathy in diseases classified elsewhere; E55.9 Vitamin D deficiency, unspecified; E03.9 Hypothyroidism, unspecified; J45.20 Mild intermittent asthma, uncomplicated; F25.9 Schizoaffective disorder, unspecified; G40.909 Epilepsy, unspecified, not intractable, without status epilepticus; K21.9 Gastro-esophageal reflux disease without esophagitis

== ENCOUNTER → 2025-02-16 09:38 | Outpatient (BNVA) | payer OTHER, SELFPAY | PROVIDERS: PCP Internal Medicine; Visit Provider Internal Medicine | DX: E10.22 Type 1 diabetes mellitus with diabetic chronic kidney disease (principal); I12.9 Hypertensive chronic kidney disease with stage 1 through stage 4 chronic kidney disease, or unspecified chronic kidney disease; N18.4 Chronic kidney disease, stage 4 (severe); E78.00 Pure hypercholesterolemia, unspecified; E21.3 Hyperparathyroidism, unspecified; R79.89 Other specified abnormal findings of blood chemistry; G63 Polyneuropathy in diseases classified elsewhere; E55.9 Vitamin D deficiency, unspecified; E03.9 Hypothyroidism, unspecified; J45.20 Mild intermittent asthma, uncomplicated; G40.909 Epilepsy, unspecified, not intractable, without status epilepticus; K21.9 Gastro-esophageal reflux disease without esophagitis; F25.9 Schizoaffective disorder, unspecified | CPT/HCPCS: 96127; 99212 ==

== ENCOUNTER 2025-02-28 07:41 | Outpatient (REF) | payer OTHER, SELFPAY ==
--- OUTSIDE RECORDS SUMMARY | 2025-02-28 07:44 | XMS_ITS | Patient Health Record ---
Author Organization [facility] Address [address] [place] [address] Care Team Providers Care Grocery Worker Name Role Phone Roby GUTIERREZ, [place] Primary Care Provider Unava Emiliano Miller Unavailable [phone] Reason For Referral No Information Plan Of Treatment No Information Insurance Providers Payer Name Payer Address Payer Phone Subscriber Number Group Number Insured Name Patient Relationship to Insured Coverage Start Date Coverage End Date [facility] [address] [place] [address] [id number] SAMEER HERR Self - patient is the insured
--- OUTSIDE RECORDS SUMMARY | 2025-02-28 07:44 | XMS_ITS | Clinical Summary ---
Author Organization [facility] Address [address] [place] [address] Phone Care Team Providers Care Scullion Chief Name Role Phone Zeb Ca MD Primary Care Provider +1- [phone] Allergies No known active allergies Medications zonisamide [...] diskus inhaler Activ e ergocalciferol 1.25 MG (16922 UT) capsule Take 1 capsule by mouth [...] evening. Take with meals. 07/22/20 24 Active pregabalin (LYRICA) 100 MG capsule Take [...] 45 capsule 3 01/28/20 25 026 Active sodium bicarbonate 650 MG tablet TAKE 1 TABLET BY MOUTH IN THE MORNING, 1 TAB AT NOON, 1 TAB IN EVENING, AND 1 TAB AT BEDTIME DAILY 360 tablet 02/26/20 25 Active sodium bicarbonate 650 MG tablet TAKE 1 TABLET BY MOUTH IN THE MORNING, 1 TAB AT NOON, 1 TAB IN EVENING, AND 1 TAB AT BEDTIME DAILY 360 tablet 12/02/19 25 025 Discontinued Active Problems Problem Noted Date Diagnosed Date Autosomal dominant polycystic kidney disease Multiple renal cysts 06/09/2024 Hyperkalemia 02/09/2024 Chronic kidney disease, stage 4 (severe) 022 Renal osteodystrophy 05/27/2022 Chronic kidney disease stage 3 11/29/2021 Essential hypertension 11/29/2021 Renal disorder due to type 2 diabetes mellitus 0 11/29/2021 Type 2 diabetes mellitus with peripheral angiopa thy 11/29/2021 Encounters Date Type Department Care Team Description 02/24/2025 Refill [facility] [address] [place] [address] Nelson Knowles MD 02/17/2025 10:45 AM EDT Office Visit [facility] [address] [phone] Nelson Knowles MD Chronic kidney disease, stage 4 (severe) (HCC) (Primary Dx); Renal disorder due to type 2 diabetes mellitus <Diabetic nephropathy> (HCC); Autosomal dominant polycystic kidney disease 02/08/2025 Office Communication [facility] [address] [phone] Jessy, [facility] 01/27/2025 Refill [facility] [address] [phone] [facility] 01/18/2025 Refill [facility] [address] [address] Nelson Knowles MD 12/09/2024 4:15 PM EDT Office Visit [facility] [address] [place] [address] Nelson Knowles MD Chronic kidney disease, stage 4 (severe) (HCC) (Primary Dx); Renal osteodystrophy 11/30/2024 Refill [facility] [address] [place] [address] Nelson Knowles MD from Last 3 Months Family History Relation Status Comments Father Mother Alive Social History Tobacco Use Types Packs/Day Years [...] Sign Reading Time Taken Comments Blood Pressure 100/60 02/17/2025 10:02 AM EDT Pulse 75 02/17/2025 10:02 AM EDT Temperature - - Respiratory Rate - - Oxygen Saturation 98% 02/17/2025 10:02 AM EDT Inhaled Oxygen Concentration - - Weight 91.4 kg (201 lb 9.6 oz) 02/17/2025 10:02 AM EDT Height - - Body Mass Index - - Plan of Treatment Upcoming Encounters Date Type Department Care Team (Late st Contact Info) Description 03/31/2025 10:15 AM EDT Office Visit [facility] [address] [place] [phone] Nelson Knowles MD [address] [phone] 06/27/2025 1:00 PM EST Office Visit [facility] [address] [place] [address] Nelson Knowles MD [address] [address] Health Maintenance Due Date Last [...] MD LAB URINE ORDERABLES Final Re sult [place] See order comments [place] [address] * (ABNORMAL) Albumin, urine, random (12/09/2024 5:08 [...] ORDERABLES Final Re sult Performing Organization Address [facility] Phone Number [place] See order comments [place] [address] * (ABNORMAL) Urinalysis (12/09/2024 5:08 PM EDT) Color Urine Yellow See orde r comments Appearance Urine Clear See order comments pH Urine 5.5 5.0 - 9.0 See order comments Glucose Urine 100(A) Negative mg/dL See order comments Blood, Urine Negative Negative See ord er comments Specific [place] Urine <=1.005 1.005 - 1.025 See order comments Protein Urine Negative Neg-Trace mg/dL See order comments Ketones, Urine Negative Negative mg/dL See order comments Nitrite, Urine Negative Negative See o rder comments Leukocyte Esterase Urine Negative Negative See order comments 12/09/2024 5:08 PM EDT 12/09/2024 5:08 PM EDT us Nelson Knowles MD LAB URINE ORDERABLES Final Re sult Performing Organization Address [facility] Phone Number [place] See order comments [place] [address] * (ABNORMAL) Creatinine (12/09/2024 3:32 PM EDT) Creatinine Serum 2.74(H) 0.5 - 1.4 mg/dL See order comments eGFR (Calc) 24 See orde r comments Comment: Chronic Kidney Disease: Estimated GFR < 60 mL/min/1.73m2 Severe Kidney Disease: Estimated GFR < 15 mL/min/1.73m2 12/09/2024 3:32 PM EDT 12/09/2024 3:32 PM EDT Nelson Knowles MD LAB BLOOD ORDERABLES Final Re sult [place] See order comments [place] [address] * (ABNORMAL) PTH, Intact (12/09/2024 3:32 PM EDT) Parathyroid Hormone, Intact 349.6(H) 8.7 - 77.1 pg/mL See order comments 12/09/2024 3:32 PM EDT 12/09/2024 3:32 PM EDT Nelson Knowles MD LAB [id number] SOLICITED RESULTS Final Result Performing Organization Address [facility] Co de Phone Number [place] See order comments [place] [address] * Vitamin D 25 Hydroxy (12/09/2024 3:32 [...] order comments [place] [address] * (ABNORMAL) CBC and Differential (12/09/2024 3:32 [...] ORDERABLES Final Re sult Performing Organization Address [facility] Phone Number [place] See order comments [place] [address] * (ABNORMAL) BUN (12/09/2024 3:32 PM EDT) BUN 79(H) 9 - 16 mg/dL See order comments 12/09/2024 3:32 PM EDT 12/09/2024 3:32 PM EDT us Nelson Knowles MD LAB BLOOD ORDERABLES Final Re sult Performing Organization Address [facility] Phone Number [place] See order comments [place] [address] * (ABNORMAL) Phosphorus (12/09/2024 3:32 PM EDT) Phosphorus, Serum 5.0(H) 2.7 - 4.5 mg/dL See order comments 12/09/2024 3:32 PM EDT 12/09/2024 3:32 PM EDT us Nelson Knowles MD LAB BLOOD ORDERABLES Final Re sult Performing Organization Address [facility] Number [place] See order comments [place] [address] * (ABNORMAL) Magnesium (12/09/2024 3:32 PM EDT) Magnesium 2.8(H) 1.6 - 2.6 mg/dL See order comments 12/09/2024 3:32 PM EDT 12/09/2024 3:32 PM EDT us Nelson Knowles MD LAB BLOOD ORDERABLES Final Re sult Performing Organization Address [facility] Phone Number [place] See order comments [place] [address] * Calcium (12/09/2024 3:32 PM EDT) Calcium 8.4 8.4 - 10.2 mg/dL See order comments 12/09/2024 3:32 PM EDT 12/09/2024 3:32 PM EDT us Nelson Knowles MD LAB BLOOD ORDERABLES Final Re sult Performing Organization Address [facility] Phone Number [place] See order comments [place] [address] * Albumin (12/09/2024 3:32 PM EDT) Albumin 4.2 3.5 - 5.0 g/dL See order comments 12/09/2024 3:32 PM EDT 12/09/2024 3:32 PM EDT us Nelson Knowles MD LAB BLOOD ORDERABLES Final Re sult Performing Organization Address [facility] Phone Number [place] See order comments [place] [address] * (ABNORMAL) Electrolyte panel (12/09/2024 3:32 PM [...] MD LAB BLOOD ORDERABLES Final Re sult [place] See order comments [place] [address] * ALT EXT LABS (09/01/2024) Hemoglobin A1C 5.5 4.0 - 6.0 09/01/2024 us Historical Provider LAB BLOOD ORDERABLES Lizbeth l Result from Last 3 Months or Most Recently Relevant to Health Maintenance [place] [address] ([id number]) [place] [id number] [facility] ([id number]) [place] [id number] Care Teams Scullion Chief Relationship Specialty Start Date End Date Zeb Ca MD [address] [place] [address] DRIVE [address] [place] [address] PCP - General Internal Medicine 09/21/21
--- OUTSIDE RECORDS SUMMARY | 2025-02-28 07:44 | XMS_ITS | Clinical Summary ---
Author Organization [facility] Address 175 [place] [address] Phone Care Team Providers Care Superintendent Compressor Stations Name Role Phone Zeb Ca MD Primary [...] Type 2 diabetes mellitus wit h hyperglycemia ([facility] V24, [facility] V28) 06/09/2024 Polycystic kidney disease 06/09/2024 GERD (gastroesophageal reflux disease) IBS (irritable bowel syndrome) 06/09/2024 Fatty liver 06/09/2024 Prolonged QT interval 06/09/2024 Encounters Date Type Department Care Team Description 12/06/2024 10:15 AM EDT Office Visit Orthopedic Surgery - [address] [phone] Michael Mercedes, DPM Tendonitis, Achilles, left (Primary Dx); Bursitis of left foot; Dermatophytosis of nail; Corns and callosities; Type II diabetes mellitus with peripheral circulatory disorder ([facility] V24, [facility] V28); Metatarsalgia of both feet; Diabetic mononeuropathy simplex ([facility] V24, [facility] V28); Pain in toe of left foot; [...] AM EDT Office Visit Orthopedic Surgery - [place] [address] [phone] Michael Mercedes, DPM [address] [address] Health Maintenance Due Date Last Done Comments [...] Panel) 03/05/2024 Colorectal Cancer Screening: Colonoscopy 03/05/2024 HIV Screening 03/05/2024 Hepatitis C Screening 03/05/2024 Medicare Annual Wellness Visit 03/05/2024 Social Influencers of Health Screening 03/05/2024 Diabetes: Annual Urine Albumin-Creatinine Ratio (uACR) 06/09/2024 Diabetes: Blood Sugar Control Test (HGBA1C) 06/09/2024 Hypertension/CHF/CAD Annual BMP Blood Test 06/09/2024 Depression Screening 08/04/2024 Influenza Vaccine (#1) 2025 , 04/30/2022, 09/18/2021, [...] Group ID:[id number] Type:Not on file Address: [address] [place] [address] [place] - [place] Care Teams Superintendent Compressor Stations Relationship Specialty Start Date End Date Zeb Ca MD [address] [place] [address] [place] [address] PCP - General Internal Medicine 05/07/24
[2025-02-28 08:03] LABS: MANUAL DIFF FLAG NO
[2025-02-28 08:16] LABS: Hematocrit 34.6 % (42.0-52.0); Hemoglobin 11.1 g/dl (14.0-18.0); Imm Gran Abs Auto 0.03 X10*3/uL (0.00-0.03); Imm Gran Pct Auto 0.4 % (0.0-0.4); Lymphocytes Absolute Auto 1.4 X10*3/uL (1.2-4.9); Mean Corpuscular HGB Conc 32.1 g/dl (31.0-36.0); Mean Corpuscular Hemoglobin 29.0 pg (27.0-33.0); Mean Corpuscular Volume 90.3 fL (80.0-98.0); NRBC Abs Auto 0.000 X10*3/uL (0.0-0.012); NRBC Pct Auto 0.0 /100WBC (0.0-0.2); Platelet Count 197 X10*3/uL (160-400); Red Blood Count 3.83 X10*6/uL (4.60-5.80); White Blood Count 6.7 X10*3/uL (4.8-10.8)
[2025-02-28 08:29] LABS: Appearance Urine Clear; Glucose Urine UA 250 mg/dL (Negative); PH 6.0 (5.0-9.0); Specific Gravity - Urine <= 1.005 (1.005-1.025)
[2025-02-28 08:53] LABS: Alkaline Phosphatase 161 U/L (39-117); Anion Gap 11 (12-20); Aspartate Amino Transferase 28 U/L (5-37); Blood Urea Nitrogen 50 mg/dL (9-16); Calcium 9.0 mg/dL (8.4-10.2); Carbon Dioxide 21 mmol/L (22-29); Chloride 113 mmol/L (96-108); Estimated Glomerular Filt Rate 22; Potassium 5.1 mmol/L (3.3-5.1); Sodium 140 mmol/L (135-145)
[2025-02-28 08:56] LABS: Parathyroid Hormone Intact 174.6 pg/mL (8.7-77.1)
[2025-02-28 09:04] LABS: Alanine Aminotransferase 33 U/L (0-40)
[2025-02-28 09:10] LABS: Microalbum/Creatinine Ratio Ur 200.3 ug/mg cr (<30); Protein/Creatinine Ratio, Ur 0.35 (<0.2); Total Protein Urine Random 9 mg/dL (<12)
== END 2025-02-28 07:42 | disposition home or self-care (01) ==
LOC: HO.LAB 07:41
PROVIDERS: PCP Internal Medicine; Visit Provider Internal Medicine Nephrology
DX: E11.22 Type 2 diabetes mellitus with diabetic chronic kidney disease (principal); N18.4 Chronic kidney disease, stage 4 (severe); Q61.2 Polycystic kidney, adult type
CPT/HCPCS: 36415; 80051; 81001; 82043; 82247; 82248; 82310; 82565; 82570; 83970; 84075; 84156; 84450; 84460; 84520; 85025

== ENCOUNTER 2025-03-27 09:13 | Outpatient (REF) | payer OTHER, SELFPAY ==
--- NOTE | ~2025-03-27 | MR_ITS ---
EXAMINATION: MR ABDOMEN WITHOUT CONTRAST CLINICAL INFORMATION: Chronic kidney disease, stage IV. Polycystic kidneys. COMPARISON: Correlated to CT abdomen pelvis dated September 14, 2024 and January 30, 2016. TECHNIQUE: MR abdomen is performed without gadolinium contrast. FINDINGS: LUNG BASES: No gross signal abnormality within the included lung bases. LIVER, GALLBLADDER, AND BILIARY TREE: Liver measures 17 cm the dome XA excluded. No gross cystic lesions. The flow-void signal within the included hepatic veins and intrahepatic portion of the IVC and main portal veins is normal. Gallbladder is contracted without pericholecystic fluid collection or gallbladder wall thickening. Common bile duct measures 4 mm. No intrahepatic biliary ductal dilatation. PANCREAS: There is a 5 mm fluid signal characteristic lesion near the tail of pancreas. There is a cluster of 3 mm fluid signal characteristic lesions in the head of the pancreas. No main pancreatic ductal dilatation. No peripancreatic fluid collection. SPLEEN: 11 cm. No cystic lesion. ADRENAL GLANDS: No nodular lesions. KIDNEYS AND URETERS: Right kidney: There are numerous, different sizes, round and lobulated well-defined, faint wall and mostly nonseptated predominantly fluid signal characteristic lesions throughout the parenchyma in an exophytic and cortical medullary junction distribution, the largest in the lower pole measures 7 cm. There are multiple intrinsic hyperintense T1 and hypointense T2 signal abnormality within some of those cystic lesions with fluid fluid levels. No hydronephrosis. The overall appearance of the kidney is enlarged. Left kidney: Appears enlarged. No hydronephrosis. There are numerous, different sizes, well-defined, round and ovoid shaped, predominantly fluid signal characteristic lesions throughout the parenchyma, the largest measures 6 cm. There are multiple, cystic lesions with intrinsic hyperintense T1 and hypointense T2 signal abnormality and fluid fluid levels. The lesions are distributed throughout the exophytic and cortical medullary junction. GASTROINTESTINAL TRACT: No intestinal obstruction pattern. ABDOMINAL WALL: Small fat-containing umbilical hernia. LYMPH NODES: No mesenteric or retroperitoneal lymphadenopathy. VASCULAR: No aneurysm or dissection, abdominal aorta. OSSEOUS STRUCTURES: Multilevel thoracolumbar spondylosis with a and a shaped curvature of the thoracolumbar spine no fully included in the [id number]. MR/MR abdomen wo con IMPRESSION: Concerning autosomal dominant polycystic kidney disease in the correct clinical settings. Multiple likely hemorrhagic cystic lesions, bilaterally. Subcentimeter cystic lesions, head and tail of the pancreas. Hepatomegaly, mild. Electronically signed by: Júnior Burgos MD 03/28/2025 09:31 AM EDT RP
--- OUTSIDE RECORDS SUMMARY | 2025-03-27 09:20 | XMS_ITS | Patient Health Record ---
Author Organization [facility] Address [address] [place] [address] Care Team Providers Care Electrical Continuity Inspector Name Role Phone Roby GUTIERREZ, [place] Primary Care Provider Unava Emiliano Miller Unavailable [phone] Reason For Referral No Information Plan Of Treatment No Information Insurance Providers Payer Name Payer Address Payer Phone Subscriber Number Group Number Insured Name Patient Relationship to Insured Coverage Start Date Coverage End Date [facility] [address] [place] [address] [id number] SAMEER HERR Self - patient is the insured
--- OUTSIDE RECORDS SUMMARY | 2025-03-27 09:20 | XMS_ITS | Clinical Summary ---
Author Organization [facility] Address [address] [place] [address] Phone Care Team Providers Care Farmer Cash Grain Name Role Phone Zeb Ca MD Primary Care Provider [phone] Allergies No known active allergies Medications zonisamide [...] diskus inhaler Activ e ergocalciferol 1.25 MG (76444 UT) capsule Take 1 capsule by mouth [...] the evening. Take with meals. 4 Active pregabalin (LYRICA) 100 MG capsule Take 100 mg by mouth 5 Active rosuvastatin (CRESTOR) 5 MG tablet Take 5 mg by mouth 1 (one) time each day 5 Active LORazepam (ATIVAN) 0.5 MG tablet Take 0.5 mg by mouth every 6 hours as needed Active Sodium Zirconium Cyclosilicate (Lokelma) 10 g pack TAKE 10 G BY MOUTH 5 (FIVE) TIMES A WEEK TAKE 90 each 5 04/19/20 25 Active calcitriol (Rocaltrol) 0.25 MCG capsule Take 1 capsule (0.25 mcg total) by mouth every other day 45 capsule 3 5 01/28/20 26 Active sodium bicarbonate 650 MG tablet TAKE 1 TABLET BY MOUTH IN THE MORNING, 1 TAB AT NOON, 1 TAB IN EVENING, AND 1 TAB AT BEDTIME DAILY 360 tablet 5 Active Active Problems Problem Noted Date Diagnosed [...] Encounters Date Type Department Care Team Description 02/28/2025 Orders Only [facility] [address] [place] [address] [address] [place] [phone] Nelson Knowles MD 02/24/2025 Refill [facility] [address] [place] [address] [place] [phone] Nelson Knowles MD 02/17/2025 10:45 AM EDT Office Visit [facility] [address] [phone] Nelson Knowles MD Chronic kidney disease, stage 4 (severe) (HCC) (Primary Dx); Renal disorder due to type 2 diabetes mellitus <Diabetic nephropathy> (HCC); Autosomal dominant polycystic kidney disease 02/08/2025 Office Communication [facility] [address] [phone] Brenda Jiménez 01/27/2025 Refill [facility] [address] [phone] GrubbsShelley 01/18/2025 Refill [facility] [address] [phone] Nelson Knowles MD from Last 3 Months [...] Office Visit [facility] [address] [phone] Nelson Knowles MD [address] [facility] [address] [place] [address] 06/27/2025 1:00 PM EST Office Visit [facility] [address] [place] [address] Nelson Knowles MD [address] [phone] Health Maintenance Due Date Last [...] Procedure Name Priority Date/Time Associated Diagnosis Comments ALBUMIN, URINE, RANDOM Routine 02/28/2025 8:09 AM EDT PROTEIN / CREATININE RATIO, URINE Routine 02/28/2025 8:09 AM EDT Chronic kidney disease, stage 4 (severe) (HCC) Renal disorder due to type 2 diabetes mellitus <Diabetic nephropathy> (HCC) Autosomal dominant polycystic kidney disease URINALYSIS WITH MICROSCOPIC Routine 02/28/2025 8:09 AM EDT Chronic kidney disease, stage 4 (severe) (HCC) Renal disorder due to type 2 diabetes mellitus <Diabetic nephropathy> (HCC) Autosomal dominant polycystic kidney disease PTH, INTACT (HC) Routine 02/28/2025 8:0 2 AM EDT CALCIUM Routine 02/28/2025 8:02 AM EDT CREATININE, BLOOD Routine 02/28/2025 8:0 2 AM EDT BUN Routine 02/28/2025 8:02 AM EDT ELECTROLYTE PANEL Routine 02/28/2025 8:0 2 AM EDT BILIRUBIN, DIRECT Routine 02/28/2025 8:0 2 AM EDT BILIRUBIN, TOTAL Routine 02/28/2025 8:02 AM EDT CBC AND DIFFERENTIAL Routine 02/28/2025 8:02 AM EDT ALKALINE PHOSPHATASE Routine 02/28/2025 8:02 AM EDT Chronic kidney disease, stage 4 (severe) (HCC) Renal disorder due to type 2 diabetes mellitus <Diabetic nephropathy> (HCC) Autosomal dominant polycystic kidney disease ALT Routine 02/28/2025 8:02 AM EDT Chronic kidney disease, stage 4 (severe) (HCC) Renal disorder due to type 2 diabetes mellitus <Diabetic nephropathy> (HCC) Autosomal dominant polycystic kidney disease AST Routine 02/28/2025 8:02 AM EDT Chronic kidney disease, stage 4 (severe) (HCC) Renal disorder due to type 2 diabetes mellitus <Diabetic nephropathy> (HCC) Autosomal dominant polycystic kidney disease ALT EXT LABS Routine 09/01/2024 from Last 3 Months or Most Recently Relevant to Health Maintenance Results * (ABNORMAL) Protein, Total, Random Urine w/Creatinine (Protein/Creat Ratio) (02/28/2025 8:09 AM EDT) Protein Urine Random 9 <12 mg/dL See order comments Protein/Creati nine Ratio, Urine 0.35(H) <0.2 See order comments Comment: The spot urine protein:creatinine ratio may increase to 0.3 during normal . Urine Urine specimen obtained by clean catch procedure / Unknown 02/28/2025 8:09 AM EDT 02/28/2025 8:09 AM EDT Nelson Knowles MD LAB URINE ORDERABLES Final Re sult Performing Organization Address [facility] Co de Phone Number [place] See order comments [place] [address] * (ABNORMAL) Albumin, urine, random (02/28/2025 8:09 AM EDT) Creatinine, Urine 25.96 mg/dL Se e order comments Urine Microalbumin 52.0 mg/L See order comments Microalbumin/Crea tinine Ratio 200.3(H) <30 ug/mg cr See order comments Comment: Albumin/Creatinine Ratio Reference Ranges: Normal: < 30 ug/mg creatinine Microalbuminuria: 30 - 300 ug/mg creatinine Clinical Albuminuria: > 300 ug/mg creatinine 02/28/2025 8:09 AM EDT 02/28/2025 8:09 AM EDT Nelson Knowles MD LAB URINE ORDERABLES Final Re [facility] Performing Organization Address [facility] de Phone Number [place] See order comments [place] [address] * (ABNORMAL) Urinalysis with microscopic (02/28/2025 8:09 AM EDT) Color Urine Yellow See orde r comments Appearance Urine Clear See order comments pH Urine 6.0 5.0 - 9.0 See order comments Glucose Urine 250(A) Negative mg/dL See order comments Blood, Urine Negative Negative See ord er comments Specific [place] Urine <=1.005 1.005 - 1.025 See order comments Protein Urine Negative Neg-Trace mg/dL See order comments Ketones, Urine Negative Negative mg/dL See order comments Nitrite, Urine Negative Negative See o rder comments Leukocyte Esterase Urine Negative Negative See order comments RBC, Urine 0-2 0 - 2 /HPF See orde r comments WBC 0-5 0 - 5 /HPF See order comments Squamous Epithelial, Urine 0-2 0 - 2 /HPF See order comments Bacteria, Urine None Seen None Seen See order comments Hyaline Casts, Urine 0-2 0 - 2 /LPF See order comments Urine Urine specimen obtained by clean catch procedure / Unknown 02/28/2025 8:09 AM EDT 02/28/2025 8:09 AM EDT us Nelson Knowles MD LAB URINE ORDERABLES Final Re sult Performing Organization Address [facility] de Phone Number [place] See order comments [place] [address] * (ABNORMAL) Creatinine (02/28/2025 8:02 AM EDT) Creatinine Serum 2.97(H) 0.5 - 1.4 mg/dL See order comments eGFR (Calc) 22 See orde r comments Comment: Chronic Kidney Disease: Estimated GFR < 60 mL/min/1.73m2 Severe Kidney Disease: Estimated GFR < 15 mL/min/1.73m2 02/28/2025 8:02 AM EDT 02/28/2025 8:02 AM EDT us Nelson Knowles MD LAB BLOOD ORDERABLES Final Re sult Performing Organization Address [facility] de Phone Number [place] See order comments [place] [address] * (ABNORMAL) PTH, Intact (02/28/2025 8:02 AM EDT) Parathyroid Hormone, Intact 174.6(H) 8.7 - 77.1 pg/mL See order comments 02/28/2025 8:02 AM EDT 02/28/2025 8:02 AM EDT us Nelson Knowles MD LAB [id number] SOLICITED RESULTS Final Result Performing Organization Address [facility] de Phone Number [place] See order comments [place] [address] * (ABNORMAL) CBC and Differential (02/28/2025 8:02 AM EDT) WBC 6.7 4.8 - 10.8 X10*3/uL See order comments RBC 3.83(L) 4.60 - 5.80 X10*6/uL See order comments Hgb 11.1(L) 14.0 - 18.0 g/dl See order comments Hematocrit 34.6(L) 42.0 - 52.0 % See order comments MCV 90.3 80.0 - 98.0 fL See order comments MCH 29.0 27.0 - 33.0 pg See order comments MCHC 32.1 31.0 - 36.0 g/dl See order comments RDW 14.2 11.0 - 16.0 % See order comments Platelets 197 160 - 400 X10*3/uL See order comments MPV 9.0(L) 9.4 - 12.4 fL See order comments Neutrophils % Auto 69.5 45 - 73 % See order comments Immature Granulocytes 0.4 0.0 - 0.4 % See order comments Lymphocytes Relative 21.1 20 - 40 % See order comments Monocytes 5.6 2 - 11 % See order comments Eosinophils Relative 3.0 0 - 4 % See order comments Basophils Relative 0.4 0 - 2 % See order comments nRBC Count 0.0 0.0 - 0.2 /100WBC See order comments Neutrophils Absolute 4.7 2.0 - 8.3 x10*3/uL See order comments Immature Grans (Absolute) 0.03 0.00 - 0.03 X10*3/uL See order comments Lymphocytes Absolute 1.4 1.2 - 4.9 X10*3/uL See order comments Monocytes Absolute 0.4 0.1 - 1.2 X10*3/uL See order comments Eosinophils Absolute 0.2 0.0 - 0.4 X10*3/uL See order comments Basophils Absolute 0.0 0.0 - 0.2 X10*3/uL See order comments NRBC Absolute 0.000 0.0 - 0.012 X10*3/uL See order comments 02/28/2025 8:02 AM EDT 02/28/2025 8:02 AM EDT us Nelson Knowles MD LAB BLOOD ORDERABLES Final Re sult [place] See order comments [place] [address] * (ABNORMAL) BUN (02/28/2025 8:02 AM EDT) BUN 50(H) 9 - 16 mg/dL See order comments 02/28/2025 8:02 AM EDT 02/28/2025 8:02 AM EDT Nelson Knowles MD LAB BLOOD ORDERABLES Final Re sult Performing Organization Address [facility] Co de Phone Number [place] See order comments [place] [address] * ALT (02/28/2025 8:02 AM EDT) ALT (SGPT) 33 0 - 40 U/L See orde r comments Blood Venous blood / Unknown 02/28/2025 8:02 AM EDT 02/28/2025 8:02 AM EDT us Nelson Knowles MD LAB BLOOD ORDERABLES Final Re sult Performing Organization Address [facility] Co de Phone Number [place] See order comments [place] [address] * AST (02/28/2025 8:02 AM EDT) AST (SGOT) 28 5 - 37 U/L See orde r comments Blood Venous blood / Unknown 02/28/2025 8:02 AM EDT 02/28/2025 8:02 AM EDT us Nelson Knowles MD LAB BLOOD ORDERABLES Final Re sult Performing Organization Address [facility] Co de Phone Number [place] See order comments [place] [address] * (ABNORMAL) Alkaline phosphatase (02/28/2025 8:02 AM EDT) Alkaline phosphatase 161(H) 39 - 117 U/L See order comments Blood Venous blood / Unknown 02/28/2025 8:02 AM EDT 02/28/2025 8:02 AM EDT us Nelson Knowles MD LAB BLOOD ORDERABLES Final Re sult Performing Organization Address [facility] de Phone Number [place] See order comments [place] [address] * Calcium (02/28/2025 8:02 AM EDT) Calcium 9.0 8.4 - 10.2 mg/dL See order comments 02/28/2025 8:02 AM EDT 02/28/2025 8:02 AM EDT us Nelson Knowles MD LAB BLOOD ORDERABLES Final Re sult Performing Organization Address [facility] de Phone Number [place] See order comments [place] [address] * Bilirubin, direct (02/28/2025 8:02 AM EDT) Bilirubin, Direct 0.1 0.0 - 0.5 mg/dL See order comments 02/28/2025 8:02 AM EDT 02/28/2025 8:02 AM EDT us Nelson Knowles MD LAB BLOOD ORDERABLES Final Re sult Performing Organization Address [facility] de Phone Number [place] See order comments [place] [address] * Bilirubin, total (02/28/2025 8:02 AM EDT) Total Bilirubin 0.3 0.0 - 1.0 mg/dL See order comments 02/28/2025 8:02 AM EDT 02/28/2025 8:02 AM EDT us Nelson Knowles MD LAB BLOOD ORDERABLES Final Re sult Performing Organization Address [facility] de Phone Number [place] See order comments [place] [address] * (ABNORMAL) Electrolyte panel (02/28/2025 8:02 AM EDT) Sodium 140 135 - 145 mmol/L See order comments Potassium 5.1 3.3 - 5.1 mmol/L See order comments Chloride 113(H) 96 - 108 mmol/L See order comments Bicarbonate (CO2) 21(L) 22 - 29 mmol/L See order comments Anion Gap 11(L) 12 - 20 See order comments 02/28/2025 8:02 AM EDT 02/28/2025 8:02 AM EDT Nelson Knowles MD LAB BLOOD ORDERABLES Final Re sult [place] See order comments [place] [address] * ALT EXT LABS (09/01/2024) Hemoglobin A1C 5.5 4.0 - 6.0 09/01/2024 Historical Provider LAB BLOOD ORDERABLES Lizbeth l Result from Last 3 Months or Most Recently Relevant to Health Maintenance Insurance * Guarantor: Shaheen Munoz Account Type Relation to Patient Date of Phone Billing Address Personal/Family Self 1970 [address] [facility] ([id number][facility] * Guarantor: Shaheen Munoz Account Type Relation to Patient Date of Phone Billing Address Personal/Family Self 1970 [address] [place] [facility] ([id number]) [place] [phone] Care Teams Farmer Cash Grain Relationship Specialty Start Date End Date Zeb Ca MD [address] [place] [id number] PCP - General Internal Medicine 09/21/21
--- OUTSIDE RECORDS SUMMARY | 2025-03-27 09:20 | XMS_ITS | Clinical Summary ---
Author Organization [address] [facility] Address [address] [place] [address] Phone Care Team Providers Care Parts Processor Name Role Phone Zeb Ca MD Primary Care Provider + [phone] Allergies No known active allergies Medications albuterol [...] Type 2 diabetes mellitus wit h hyperglycemia (CMS/HCC V24, CMS/HCC V28) 06/09/2024 Polycystic kidney disease 06/09/2024 GERD (gastroesophageal reflux disease) IBS (irritable bowel syndrome) 06/09/2024 Fatty liver 06/09/2024 Prolonged QT interval 06/09/2024 Encounters Date Type Department Care Team Description 03/22/2025 1:00 PM EDT Office Visit Orthopedic Surgery [address] [place] [address] Michael Mercedes DPM Tendonitis, Achilles, left (Primary Dx); Bursitis of left foot; Dermatophytosis of nail; Corns and callosities; Pain in toe of right foot; Type II diabetes mellitus with peripheral circulatory disorder ([facility] V24, [facility] V28); Pain in toe of left foot; Diabetic mononeuropathy simplex ([facility] V24, [facility] V28); Metatarsalgia of both feet from Last 3 Months Social History Tobacco Use Types Packs/Day Years Used Date Smoking Tobacco: Never Assessed Sex and Gender Information Value Date Recorded Sex Assigned at Male 03/08/2025 5:50 PM EDT Legal Sex Male 11:07 AM EDT Gender Identity Male 03/08/2025 5:50 PM EDT Sexual Orientation Straight 03/08/2025 5: 50 PM EDT Last Filed Vital Signs Vital Sign Reading [...] Care Team (Late st Contact Info) Description 05/05/2025 1:15 PM EDT Office Visit Orthopedic Surgery - [place] [id number] [phone] Michael Mercedes DPM [address] [address] Health Maintenance Due Date Last Done Comments [...] Social Influencers of Health Screening 03/05/2024 Diabetes: Blood Sugar Control Test (HGBA1C) 06/09/2024 Hypertension/CHF/CAD Annual BMP Blood Test 06/09/2024 Depression Screening 08/04/2024 Influenza Vaccine (#1) 2025 , 04/30/2022, 09/18/2021, Additional history exists Diabetes: Annual Urine Albumin-Creatinine Ratio (uACR) 02/28/2026 02/28/2025 COVID-19 Vaccine Completed 11/24/2024, 04/2023, 06/03/2022, Additional [...] capacity to 2 hrs Insurance [facility] MEDICARE Member Subscriber Plan / Payer (Ef fective 2015-Present) Name:SAMEER MUNOZ Relation to Subscriber:Self Name:Sameer Munoz Payer ID:[id number] Group ID:[id number] Type:Not on file Address: [facility] [address] [place] [phone] MEDICAID - [place] Care Teams Parts Processor Relationship Specialty Start Date End Date Zeb Ca MD [address] [place] [address] [address] [place], [place] PCP - General Internal Medicine 05/07/24
== END 2025-03-27 09:14 | disposition home or self-care (01) ==
LOC: HO.MRI 09:13
PROVIDERS: PCP Internal Medicine; Visit Provider Internal Medicine Nephrology
DX: E11.21 Type 2 diabetes mellitus with diabetic nephropathy (principal); E11.22 Type 2 diabetes mellitus with diabetic chronic kidney disease; N18.4 Chronic kidney disease, stage 4 (severe)
CPT/HCPCS: 74181

== ENCOUNTER → 2025-03-27 09:25 | Outpatient (BNV) | payer OTHER, SELFPAY | PROVIDERS: PCP Internal Medicine; Visit Provider Radiology Diagnostic Radiology | DX: N18.4 Chronic kidney disease, stage 4 (severe) (principal); N28.1 Cyst of kidney, acquired; K86.2 Cyst of pancreas | CPT/HCPCS: 74181 ==

== ENCOUNTER → 2025-04-07 23:59 | Outpatient (BNV) | payer OTHER, SELFPAY | PROVIDERS: PCP Internal Medicine; Visit Provider Internal Medicine | DX: F25.9 Schizoaffective disorder, unspecified (principal); F43.10 Post-traumatic stress disorder, unspecified | CPT/HCPCS: G0179 ==

== ENCOUNTER 2025-05-02 09:56 | Outpatient (AMB) | payer OTHER, SELFPAY ==
--- NOTE | 2025-05-02 10:20 | A.OFFVIS_ITS ---
Intake Visit Reasons: 1 year f/u Allergies atorvastatin Adverse Reaction (Intermediate, Verified 05/02/25 10:25) elevated LFTs Medication List - Last Reconciled 05/02/25 by Lilli Edgar CNP albuterol sulfate 90 mcg/actuation 2 puffs inhalation Q4H PRN aripiprazole 5 mg PO DAILY dapagliflozin propanediol (Farxiga) 10 mg PO DAILY ergocalciferol (vitamin D2) 1,250 mcg PO WE@0900 fluoxetine 40 mg PO DAILY fluticasone propionate 220 mcg/actuation 1 puff PO BID lamotrigine (Lamictal) 200 mg PO BID levothyroxine 125 mcg PO DAILY@0600 lidocaine 5% 1 appl topical BEDTIME PRN lidocaine 5% 1 appl topical QID PRN 15 days lidocaine-prilocaine 2.5-2.5 % 1 appl topical TID PRN lisinopril 2.5 mg PO BID 90 days melatonin 5 mg PO BEDTIME methocarbamol 750 mg PO Q8H 30 days omega 2-auj-hyt-fish oil 1,200 (144-216) mg (Fish Oil) 1 cap PO DAILY omeprazole 20 mg PO DAILY pregabalin (Lyrica) 100 mg PO BID rosuvastatin 5 mg PO DAILY sodium bicarbonate 650 mg PO QID 30 days sodium zirconium cyclosilicate (Lokelma) 10 grams PO MOWEFR@0900 trazodone 50 mg PO BEDTIME PRN zonisamide 400 mg (4 x 100 mg) PO DAILY 30 days HPI Comments Details: 55-year-old man with IDDM, depression, anxiety, renal insufficiency, 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 He was doing okay. He was taking zonisamide, no medication side effects. No seizures. Sleep was generally okay. [facility] Medical History (Updated 05/02/25 @ 10:25 by Lilli Edgar CNP) Peripheral neuropathy Essential hypertension Right shoulder pain Paresthesia of both lower extremities Type 2 diabetes mellitus with diabetic chronic kidney disease Type 2 diabetes mellitus with hyperglycemia Left shoulder pain Chronic kidney disease, stage 3 Difficulty walking Dental caries Preoperative examination Synovial cyst of elbow COVID-19 Type 1 diabetes Type 1 diabetes mellitus Polycystic kidney disease Lumbar spondylosis Degenerative joint disease of thoracic spine Overweight (BMI 25.0-29.9) Chronic kidney disease, stage 4 (severe) Prolonged QT interval Hyperkalemia Memory impairment Vitamin D deficiency Hypothyroidism Seizures Anxiety Fatty liver IBS (irritable colon syndrome) GERD (gastroesophageal reflux disease) Obesity (BMI 30-39.9) Schizoaffective disorder Asthma Epilepsy Pure hypercholesterolemia 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 Cognitive needs: No Hearing needs: No Vision needs: Yes (glasses) Review of Systems Const Denies chills, Denies daytime sleepiness, Denies difficulty sleeping, Reports fatigue, Denies fever(s), Denies frequent falls, Denies headache(s), Denies increased appetite, Denies poor appetite, Denies snoring, Denies weakness, Denies weight gain and Denies weight loss Eyes Denies loss of vision ENT Denies vertigo, Denies dizziness and Denies headache(s) Card Denies chest pain at rest, Denies chest pain with activity, Denies syncope, Denies leg edema and Denies palpitations Resp Denies snoring GI Denies constipation, Denies heartburn, Denies diarrhea and Denies nausea Denies urinary frequency, Denies urinary incontinence and Denies urinary urgency Musc Denies abnormal gait, Denies numbness and Denies tingling Skin/Breast Denies dry skin and Denies rash Neuro Denies abnormal gait, Denies vertigo, Denies dizziness, Denies syncope, Denies frequent falls, Denies headache(s), Denies lack of coordination, Denies loss of vision, Denies memory loss, Denies numbness, Denies restless legs, Denies seizure-like activity, Denies tingling, Denies paresthesias, Denies tremor(s) and Denies weakness Psych Denies anxiety, Denies depression, Denies auditory hallucinations, Denies memory loss, Denies visual hallucinations and Denies suicidal ideation Endo Reports fatigue and Denies palpitations Physical Exam Const Other: General Appearance:? normal, in no acute distress. Skin:? no rashes, no significant birthmarks. Heart:? S1, S2 normal, no murmurs. Lungs:? clear anteriorly and posteriorly. Extremities:? no edema. Psych:? alert, oriented, cognitive function intact, cooperative with exam. Neuro Other: Mental Status:?Normal attention, orientation, and flat affect.? Cranial Nerves:?Pupils are equal, round and reactive to light. External occular muscles are intact. Visual chu are full. Face is symmetrical. Facial sensations are normal. Tongue is midline. Palate elevates symmetrically. Shoulder shrugging is normal. Hearing to bedside conversation is normal. Sensory Exam:?....? Coordination:?No ataxia,?no titubation.? Gait Exam: Within normal limits. Cerebellar Signs:?Carxuo-in-objj is okay. Extrapyramidal System:?No tremor, rigidity with normal facial expressions.? Pronator Drift:?Not present.? Involuntary Movements:?No tremors seen.? Speech:?Normal.? Results Reviewed Results Reviewed: MRI brain WO at [facility] [place] in [place]: right inf frontal encephalomalacia CT brain WO at [facility] [place] in 2018: midl frontal atrophy Routine EEG at office in Oct 2015: sharply contored theta, generalized [place] [facility]: epileptiform discharges from left temporal areas Routine EEG at office in 2014: intermittent slowing. Assessment & Plan Assessment & Plan (1) Complex partial seizure: Code(s): G40.209 - Localization-related (focal) (partial) symptomatic epilepsy and epi leptic syndromes with complex partial seizures, not intractable, without status epilepticus Category: Medical Plan: Continue zonisamide 100mg 4 capsules daily. (2) H/O traumatic brain injury: Code(s): Z87.820 - Personal history of traumatic brain injury Category: Medical Plan . Coding Level of Care Code Est Pt Level 3 (48315) Diagnoses Complex partial seizure G40.209 H/O traumatic brain injury Z87.820
--- OUTSIDE RECORDS SUMMARY | 2025-05-02 10:55 | XMS_ITS | Clinical Summary ---
Author Organization [facility] Address [address] [place] [address] Phone Care Team Providers Care Grinder Gear Name Role Phone Zeb Ca MD Primary Care Provider [phone] Allergies No known active allergies Medications zonisamide [...] diskus inhaler Activ e ergocalciferol 1.25 MG (43705 UT) capsule Take 1 capsule by mouth [...] AT BEDTIME DAILY 360 tablet 5 Active Sodium Zirconium Cyclosilicate (Lokelma) 10 g pack TAKE 10 G BY MOUTH 5 (FIVE) TIMES A WEEK TAKE 90 each 5 04/19/20 25 Active Problems Problem Noted Date Diagnosed [...] Encounters Date Type Department Care Team Description 04/21/2025 Office Communication [facility] [address] [phone] Brenda Jiménez 03/31/2025 10:15 AM EDT Office Visit [facility] [address] [phone] Nelson Knowles MD Autosomal dominant polycystic kidney disease (Primary Dx); Type 2 diabetes mellitus with peripheral angiopathy (HCC); Renal osteodystrophy; Essential hypertension 02/28/2025 Orders Only [facility] [address] [phone] Nelson Knowles MD 02/24/2025 Refill [facility] [address] [place] [phone] Nelson Knowles MD 02/17/2025 10:45 AM EDT Office Visit [facility] [address] [phone] Nelson Knowles MD Chronic kidney disease, stage 4 (severe) (HCC) (Primary Dx); Renal disorder due to type 2 diabetes mellitus <Diabetic nephropathy> (HCC); Autosomal dominant polycystic kidney disease 02/08/2025 Office Communication [facility] [address] [phone] JessyBrenda from Last 3 Months Family History Relation [...] Sign Reading Time Taken Comments Blood Pressure 114/62 03/31/2025 9:55 AM EDT Pulse 51 03/31/2025 9:55 AM EDT Temperature - - Respiratory Rate - - Oxygen Saturation 98% 03/31/2025 9:55 AM EDT Inhaled Oxygen Concentration - - Weight 93 kg (205 lb) 03/31/2025 9:55 AM EDT Height - - Body Mass Index - - Plan of Treatment Upcoming Encounters Date Type Department Care Team (Latest Contact Info) Description 05/11/2025 Orders Only [facility] [address] [place] [address] Nelson Knowles MD [address] [phone] Chronic kidney disease, stage 4 (severe) (HCC); Renal osteodystrophy 10/03/2025 3:00 PM EST Office Visit [facility] [address] [place] [address] Nelson Knowles MD [address] [phone] Health Maintenance Due Date Last [...] kidney disease PTH, INTACT (HC) Routine 02/28/2025 8:02 AM EDT CALCIUM Routine 02/28/2025 8:02 AM [...] ORDERABLES Final Re sult Performing Organization Address [facility]/[place] de Phone Number [place] See order comments [place] [address] * (ABNORMAL) Albumin, urine, random (02/28/2025 8:09 AM EDT) Pathologist [facility] Creatinine, Urine 25.96 mg/dL Se e order comments Urine Microalbumin 52.0 mg/L See order comments Microalbumin/Crea tinine Ratio 200.3(H) <30 ug/mg cr See order comments Comment: Albumin/Creatinine Ratio Reference Ranges: Normal: < 30 ug/mg creatinine Microalbuminuria: 30 - 300 ug/mg creatinine Clinical Albuminuria: > 300 ug/mg creatinine 02/28/2025 8:09 AM EDT 02/28/2025 8:09 AM EDT Nelson Knowles MD LAB URINE ORDERABLES Final Re [facility] Performing Organization Address [facility]/[place] de Phone Number [place] See order comments [place] [address] * (ABNORMAL) Urinalysis with microscopic (02/28/2025 8:09 AM EDT) Color Urine Yellow See orde r comments Appearance Urine Clear See order comments pH Urine 6.0 5.0 - 9.0 See order comments Glucose Urine 250(A) Negative mg/dL See order comments Blood, Urine Negative Negative See ord er comments Specific [place] Urine <=1.005 1.005 - 1.025 See order [...] MD LAB URINE ORDERABLES Final Re sult [facility] See order comments [place] [address] * (ABNORMAL) Creatinine (02/28/2025 8:02 AM EDT) Creatinine Serum 2.97(H) 0.5 - 1.4 mg/dL See order comments eGFR (Calc) 22 See orde r comments Comment: Chronic Kidney Disease: Estimated GFR < 60 mL/min/1.73m2 Severe Kidney Disease: Estimated GFR < 15 mL/min/1.73m2 02/28/2025 8:02 AM EDT 02/28/2025 8:02 AM EDT us Nelson Knowles MD LAB BLOOD ORDERABLES Final Re sult Performing Organization Address City/[facility]/ZIP Co de Phone Number See order comments [place] [address] * (ABNORMAL) PTH, Intact (02/28/2025 8:02 AM EDT) Parathyroid Hormone, Intact 174.6(H) 8.7 - 77.1 pg/mL See order comments 02/28/2025 8:02 AM EDT 02/28/2025 8:02 AM EDT Nelson Knowles MD LAB [id number] SOLICITED RESULTS Final Result [place] See order comments [place] [address] * (ABNORMAL) CBC and Differential (02/28/2025 8:02 [...] ORDERABLES Final Re sult Performing Organization Address [facility] Phone Number [place] See order comments [place] [address] * (ABNORMAL) BUN (02/28/2025 8:02 AM EDT) BUN 50(H) 9 - 16 mg/dL See order comments 02/28/2025 8:02 AM EDT 02/28/2025 8:02 AM EDT us Nelson Knowles MD LAB BLOOD ORDERABLES Final Re sult Performing Organization Address [facility] Phone Number [place] See order comments [place] [address] * ALT (02/28/2025 8:02 AM EDT) ALT (SGPT) 33 0 - 40 U/L See orde r comments Blood Venous blood / Unknown 02/28/2025 8:02 AM EDT 02/28/2025 8:02 AM EDT us Nelson Knowles MD LAB BLOOD ORDERABLES Final Re sult Performing Organization Address [facility] Phone Number [place] See order comments [place] [address] * AST (02/28/2025 8:02 AM EDT) AST (SGOT) 28 5 - 37 U/L See orde r comments Blood Venous blood / Unknown 02/28/2025 8:02 AM EDT 02/28/2025 8:02 AM EDT us Nelson Knowles MD LAB BLOOD ORDERABLES Final Re sult Performing Organization Address [facility] Phone [facility] See order comments [place] [address] * (ABNORMAL) Alkaline phosphatase (02/28/2025 8:02 AM EDT) Alkaline phosphatase 161(H) 39 - 117 U/L See order comments Blood Venous blood / Unknown 02/28/2025 8:02 AM EDT 02/28/2025 8:02 AM EDT us Nelson Knowles MD LAB BLOOD ORDERABLES Final Re sult Performing Organization Address [facility]/[place] Phone Number [place] See order comments [place] [address] * Calcium (02/28/2025 8:02 AM EDT) Calcium 9.0 8.4 - 10.2 mg/dL See order comments 02/28/2025 8:02 AM EDT 02/28/2025 8:02 AM EDT us Nelson Knowles MD LAB BLOOD ORDERABLES Final Re sult Performing Organization Address [facility] Phone Number [place] See order comments [place] [address] * Bilirubin, direct (02/28/2025 8:02 AM EDT) Bilirubin, Direct 0.1 0.0 - 0.5 mg/dL See order comments 02/28/2025 8:02 AM EDT 02/28/2025 8:02 AM EDT us Nelson Knowles MD LAB BLOOD ORDERABLES Final Re sult Performing Organization Address [facility]/[place] de Phone Number [place] See order comments [place] [address] * Bilirubin, total (02/28/2025 8:02 AM EDT) Total Bilirubin 0.3 0.0 - 1.0 mg/dL See order comments 02/28/2025 8:02 AM EDT 02/28/2025 8:02 AM EDT us Nelson Knowles MD LAB BLOOD ORDERABLES [facility] See order comments [place] [address] * (ABNORMAL) Electrolyte panel (02/28/2025 8:02 AM [...] order comments [place] [address] * ALT EXT LABS (09/01/2024) Hemoglobin A1C 5.5 4.0 - 6.0 09/01/2024 Historical Provider LAB BLOOD ORDERABLES Lizbeth l Result from Last 3 Months or Most Recently Relevant to Health Maintenance Insurance [facility] ([id number]) [facility] ([id number]) [place] [id number] Care Teams Grinder Gear Relationship Specialty Start Date End Date Zeb Ca MD [address] [place], [place] [phone] PCP - General Internal Medicine 09/21/21
--- OUTSIDE RECORDS SUMMARY | 2025-05-02 10:55 | XMS_ITS | Patient Health Record ---
Author Organization [facility] Address [address] [place] [address] Care Team Providers Care Crude Tester Name Role Phone Roby GUTIERREZ, Vancourt Primary Care Provider Unava Emiliano Miller Unavailable [phone] Reason For Referral No Information Plan Of Treatment No Information Insurance Providers Payer Name Payer Address Payer Phone Subscriber Number Group Number Insured Name Patient Relationship to Insured Coverage Start Date Coverage End Date [facility] [address] [place] [address] [id number] SAMEER HERR Self - patient is the insured
--- OUTSIDE RECORDS SUMMARY | 2025-05-02 10:55 | XMS_ITS | Clinical Summary ---
Author Organization [address] [facility] Address [address] [place] [address] Phone Care Team Providers Care Elementary Reading Tutor Name Role Phone Zeb Ca MD Primary Care Provider + [phone] Allergies No known active allergies Medications albuterol [...] mouth 1 (one) time each day. Active fluticasone HFA (FLOVENT HFA) 220 mcg/actuation [...] time each day before breakfast. Active lisinopriL (PRINIVIL,ZESTRIL ) 2.5 mg tablet Take 1 tablet (2.5 [...] 100 Units under the skin at bedtime. 2024 Discontinued Active Problems Problem Noted Date Diagnosed Date Type 2 diabetes mellitus wit h hyperglycemia (CMS/HCC V24, CMS/HCC V28) 06/09/2024 Polycystic kidney disease 06/09/2024 GERD (gastroesophageal reflux disease) IBS (irritable bowel syndrome) 06/09/2024 Fatty liver 06/09/2024 Prolonged QT interval 06/09/2024 Encounters Date Type Department Care Team Description 04/12/2025 Telephone Orthopedic Surgery [facility] [address] [phone] Michael Mercedes DPM 04/11/2025 Telephone Orthopedic Surgery [place] [address] [phone] Marion Black 03/22/2025 1:00 PM EDT Office Visit [place] [address] [phone] Michael Mercedes DPM Tendonitis, Achilles, left (Primary Dx); Bursitis of left foot; Dermatophytosis of nail; Corns and callosities; Pain in toe of right foot; Type II diabetes mellitus with peripheral circulatory disorder ([facility] V24, [facility] V28); Pain in toe of left foot; Diabetic mononeuropathy simplex ([facility] V24, [facility] V28); Metatarsalgia of both feet from Last [...] 05/05/2025 1:15 PM EDT Office Visit Orthopedic [place] [address] [phone] Michael Mercedes DPM [address] [phone] Health Maintenance Due Date Last Done Comments [...] Annual Urine Albumin-Creatinine Ratio (uACR) 02/28/2026 02/28/2025 RSV Immunization Adult Patients (1 - 1-dose 75+ series) 2046 COVID-19 Vaccine Completed 11/24/2024, 04/2023, 06/03/2022, Additional [...] [facility] MEDIC[facility] Member Subscriber Plan / Payer (Ef fective 2015-Present) Name:SAMEER MUNOZ Relation to Subscriber:Self Name:Sameer Munoz Payer ID:[id number] Group ID:[id number] Type:Not on file Address: [address] [place] [id number] MEDICAID - [place] Care Teams Elementary Reading Tutor Relationship Specialty Start Date End Date Zeb Ca MD [address] [place] [address] [address] [place] PCP - General Internal Medicine 05/07/24
== END 2025-05-02 10:31 | disposition home or self-care (01) ==
LOC: HO.HSM 09:57
PROVIDERS: PCP Internal Medicine; Referring Provider Internal Medicine; Visit Provider Registered Nurse
DX: G40.209 Localization-related (focal) (partial) symptomatic epilepsy and epileptic syndromes with complex partial seizures, not intractable, without status epilepticus (principal); Z87.820 Personal history of traumatic brain injury
CPT/HCPCS: 99213

== ENCOUNTER → 2025-05-02 09:56 | Outpatient (BNVA) | payer OTHER, SELFPAY | PROVIDERS: PCP Internal Medicine; Referring Provider Internal Medicine; Visit Provider Registered Nurse | DX: G40.209 Localization-related (focal) (partial) symptomatic epilepsy and epileptic syndromes with complex partial seizures, not intractable, without status epilepticus (principal); Z87.820 Personal history of traumatic brain injury | CPT/HCPCS: 99212 ==

== ENCOUNTER 2025-05-03 10:16 | Outpatient (AMB) | payer OTHER, SELFPAY ==
--- NOTE | 2025-05-03 10:29 | A.OFFVIS_ITS ---
Vital Signs 05/03/25 10:32 Height 5 ft 9 in Weight 212 lb 8.41 oz BMI 31.4 BP 126/99 H Blood Pressure Location Rt brachial Position Sitting Pulse 72 Intake Visit Reasons: Gerd, TINEO, 3 MO F/U , r/s 03/08, 04/07 Intake Note: Shaheen returns to in office visit today in follow up of GERD and TINEO. CC: Instructor Business Education Required: No Allergies gabapentin Allergy (Unknown, Verified 05/03/25 10:34) kidneys can't break it HPI HPI Gerd, TINEO, 3 MO F/U , r/s 03/08, 04/07: Details: Assessment & Plan (1) GERD (gastroesophageal reflux disease): Code(s): K21.9 - Gastro-esophageal reflux disease without esophagitis Category: Medical Qualifiers: Esophagitis presence: without esophagitis Qualified Code(s): K21.9 - Gastro-esophageal reflux disease without esophagitis (2) Irritable bowel syndrome with both constipation and diarrhea: Code(s): K58.2 - Mixed irritable bowel syndrome Category: Medical (3) Elevated LFTs: Comment: BASELINE LABS;: 03/30/2020 total bili 0.4, alk-phos is 165, AST/ALT is 34 11/20/23 06:50 Plt Count 219 Estimated GFR 24 Total Bilirubin 0.4 AST 134 H ALT 61 H Alkaline Phosphatase 153 H TSH 0.76 MONSE Screen NEGATIVE Anti-Mitochondrial Ab NEGATIVE Anti-Smooth Muscle Ab <20 Hepatitis A IgM Ab Nonreactive Hep Bs Antigen Negative Hep Bs Antibody NONREACTIVE Hep B Core Total Ab Nonreactive Hepatitis C Ab (EIA) Nonreactive HIV 1&2 Ab/P24 Ag 4thGn Nonreactive CURRENT LABS 11/19/2404/11/2404 14:0401:0903:[id number] Estimated GFR 19 Total Bilirubin 0.2 AST 17 ALT 15 Alkaline Phosphatase 137 H C-Reactive Protein 0.27 Lipase 65 MONSE Screen NEGATIVE Anti-Mitochondrial Ab NEGATIVE Anti-Smooth Muscle Ab <20 Hepatitis A IgM Ab Nonreactive Hep Bs Antigen Negative Hep Bs Antibody NONREACTIVE Hep B Core Total Ab Nonreactive Hepatitis C Ab (EIA) Nonreactive HIV 1&2 Ab/P24 Ag 4thGn Nonreactive LIVER FIBROSIS PANEL AND FERRITIN NOT OBTAINED ULTRASOUND OF THE ABDOMEN Code(s): R79.89 - Other specified abnormal findings of blood chemistry Category: Medical (4) Diabetic nephropathy: Code(s): E11.21 - Type 2 diabetes mellitus with diabetic nephropathy Category: Medical (5) Polycystic kidney disease: Comment: abdominal US done on 11/28/2023 revealed (+) enlarged kidneys replaced by innumerable cysts consistent with autosomal dominant polycystic kidney disease Code(s): Q61.3 - Polycystic kidney, unspecified Category: Medical Plan He is doing well on his omeprazole, his focus has been on his renal status. He has not happen constipated recently and when he does have trouble he simply increases the fiber in his diet. Needs TINEO updates, getting labs and US. May have an element of hepatorenal syndrome in play. ROV 3 mos. Orders: Orders US abdomen complete Today R79.89 - Other specified abnormal findings of blood chemistry Comprehensive Met. Panel Today R79.89 - Other specified abnormal findings of blood chemistry Medications: Refilled omeprazole 20 mg PO DAILY 90 caps 2RF LABS: Laboratory Tests 09/28/24 02/28/25 08:25 08:02 WBC 6.2 Hgb 12.0 L Hct 37.3 L MCV 92.6 MCH 29.8 Plt Count 221 Estimated GFR 22 Total Bilirubin 0.3 Direct Bilirubin 0.1 AST 28 ALT 33 Alkaline Phosphatase 161 H ULTRASOUND OF THE ABDOMEN 02/04/2025 Findings: The visualized pancreatic head, aorta, and inferior vena cava are unremarkable. The liver is not well seen due to limited acoustic window, normal in size, grossly normal in echogenicity, no focal lesion is seen in the visualized liver. No bile duct dilatation. Common duct 3 mm diameter. Physiologic distention of the gallbladder, no stone is seen, avascular nonshadowing echogenic focus 4 mm along the gallbladder wall may reflect small polyp. No gallbladder wall thickening. Negative sonographic Moss's sign. Main portal vein shows antegrade flow. Bilateral kidneys are not well seen due to bowel gas shadowing, they appear enlarged with diffusely increased echogenicity, right kidney measures 16.3 cm in length, left kidney 16.6 cm in length, no apparent calculus or hydronephrosis. Numerous simple and septated cysts of the bilateral kidneys, dominant cyst of the each kidney is simple, 6.2 cm on the right, 5.0 cm on the left, please note multiple cysts including the septated cyst are not well visualized. Spleen is partially visualized, grossly normal, 10.6 cm in length. No free fluid in the right upper quadrant of the abdomen. Impression: 1. Suggestion of medical renal disease and polycystic kidney disease, renal cysts are not well visualized. 2. Probable 4 mm gallbladder polyp. MRI OF THE ABDOMEN 03/28/2025 IMPRESSION: Concerning autosomal dominant polycystic kidney disease in the correct clinical settings. Multiple likely hemorrhagic cystic lesions, bilaterally. Subcentimeter cystic lesions, head and tail of the pancreas. Hepatomegaly, mild. TODAY'S VISIT [facility] Medical History Peripheral neuropathy Essential hypertension Right shoulder pain Paresthesia of both lower extremities Type 2 diabetes mellitus with diabetic chronic kidney disease Type 2 diabetes mellitus with hyperglycemia Left shoulder pain Chronic kidney disease, stage 3 Difficulty walking Dental caries Preoperative examination Synovial cyst of elbow COVID-19 Type 1 diabetes Type 1 diabetes mellitus Polycystic kidney disease Lumbar spondylosis Degenerative joint disease of thoracic spine Overweight (BMI 25.0-29.9) Chronic kidney disease, stage 4 (severe) Prolonged QT interval Hyperkalemia Memory impairment Vitamin D deficiency Hypothyroidism Seizures Anxiety Fatty liver IBS (irritable colon syndrome) GERD (gastroesophageal reflux disease) Obesity (BMI 30-39.9) Schizoaffective disorder Asthma Epilepsy Pure hypercholesterolemia USP (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 Surgical History History of surgery on lower extremity History of dental surgery H/O colonoscopy Family History Father No problems noted. 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 Cognitive needs: No Hearing needs: No Vision needs: Yes (glasses) Review of Systems Const Denies fatigue, Denies fever(s), Denies night sweats, Denies poor appetite and Denies weight loss Eyes Details: GLASSES Reports requires corrective lenses ENT Reports Normal hearing present, Denies dental pain, Denies dysphagia, Denies hearing loss, Denies mouth pain, Denies odynophagia, Denies throat swelling, Denies tongue swelling and Reports other (Dentition adequate) Card Reports no additional complaints Resp Reports no additional complaints GI Details: Denies abdominal pain, Denies melena, Denies bloating, Denies hematochezia, Denies constipation, Denies GI cramping, Denies dysphagia, Denies excessive flatus, Denies early satiety, Reports heartburn, Denies diarrhea, Denies nausea, Denies odynophagia, Denies vomiting and Denies hematemesis Skin/Breast Denies pruritus, Denies lesions, Denies rash and Denies jaundice Neuro Reports Normal hearing present and Denies Abnormal speech present Endo Denies fatigue Aller/Immun Denies throat swelling and Denies tongue swelling Physical Exam Vital Signs: Last Vital Signs Pulse 72 05/03/25 10:32 BP 126/99 H 05/03/25 10:32 BMI result Body Mass Index 31.4 Const General: cooperative, no acute distress, well developed and well groomed Nutritional Appearance: well nourished and obese Orientation/consciousness: oriented to person, oriented to place and oriented to time Limitations: No language barrier HEENT Head: Yes normocephalic and Yes atraumatic Eyes General: appearance normal, both eyes and all related structures Pupils: Equal, round and reactive pupils present Neck Neck: Yes normal visual inspection and Yes no lymphadenopathy Thyroid: Thyroid normal Resp Effort & Inspection: normal respiratory effort and able to speak in complete sentences Auscultation: clear to auscultation bilaterally Cardio Rate: regular rate Rhythm: regular rhythm Heart sounds: Normal, physiologic split S2 sound present Peripheral pulses: radial pulses present and posterior tibial pulses present GI Inspection: No distended, No Abdominal panniculus present and Yes obesity Palpation (GI): Soft to palpation, nontender, no guarding, not rigid and No hepatosplenomegaly present Percussion: Yes normal to percussion Auscultation: normal bowel sounds Rectal Exam - Male: Yes deferred Skin General skin exam: no rashes or lesions noted, turgor normal, skin not dry, no jaundice, No spider nevi and no striae Rashes: no rashes Nails: normal Neuro General: oriented to person, oriented to place and oriented to time Cranial nerves: Yes Equal, round and reactive pupils present and Yes Normal hearing present Speech: No Abnormal speech present Extrem General: Yes normal to inspection, No clubbing, No cyanosis and No edema Psych Appearance: grossly normal and well kempt Mental Status: mental status grossly normal Speech and movement: Normal speech and movement present Affect: normal affect Attitude: cooperative Thought process: Normal thought process present and not confabulating Thought content: Normal thought content present Insight: Limited insight present (Psych) Judgement: Limited judgement present (Psych) Results Reviewed Results Reviewed: Laboratory Tests 09/28/24 02/28/25 08:25 08:02 WBC 6.2 Hgb 12.0 L Hct 37.3 L MCV 92.6 MCH 29.8 Plt Count 221 Estimated GFR 22 Total Bilirubin 0.3 Direct Bilirubin 0.1 AST 28 ALT 33 Alkaline Phosphatase 161 H ULTRASOUND OF THE ABDOMEN 02/04/2025 Findings: The visualized pancreatic head, aorta, and inferior vena cava are unremarkable. The liver is not well seen due to limited acoustic window, normal in size, grossly normal in echogenicity, no focal lesion is seen in the visualized liver. No bile duct dilatation. Common duct 3 mm diameter. Physiologic distention of the gallbladder, no stone is seen, avascular nonshadowing echogenic focus 4 mm along the gallbladder wall may reflect small polyp. No gallbladder wall thickening. Negative sonographic Moss's sign. Main portal vein shows antegrade flow. Bilateral kidneys are not well seen due to bowel gas shadowing, they appear enlarged with diffusely increased echogenicity, right kidney measures 16.3 cm in length, left kidney 16.6 cm in length, no apparent calculus or hydronephrosis. Numerous simple and septated cysts of the bilateral kidneys, dominant cyst of the each kidney is simple, 6.2 cm on the right, 5.0 cm on the left, please note multiple cysts including the septated cyst are not well visualized. Spleen is partially visualized, grossly normal, 10.6 cm in length. No free fluid in the right upper quadrant of the abdomen. Impression: 1. Suggestion of medical renal disease and polycystic kidney disease, renal cysts are not well visualized. 2. Probable 4 mm gallbladder polyp. MRI OF THE ABDOMEN 03/28/2025 IMPRESSION: Concerning autosomal dominant polycystic kidney disease in the correct clinical settings. Multiple likely hemorrhagic cystic lesions, bilaterally. Subcentimeter cystic lesions, head and tail of the pancreas. Hepatomegaly, mild. Assessment & Plan Assessment & Plan (1) GERD (gastroesophageal reflux disease): Code(s): K21.9 - Gastro-esophageal reflux disease without esophagitis Category: Medical Qualifiers: Esophagitis presence: without esophagitis Qualified Code(s): K21.9 - Gastro-esophageal reflux disease without esophagitis (2) Elevated LFTs: Comment: BASELINE LABS;: 03/30/2020 total bili 0.4, alk-phos is 165, AST/ALT is 27/34 11/20/23 06:50 Plt Count 219 Estimated GFR 24 Total Bilirubin 0.4 AST 134 H ALT 61 H Alkaline Phosphatase 153 H TSH 0.76 MONSE Screen NEGATIVE Anti-Mitochondrial Ab NEGATIVE Anti-Smooth Muscle Ab <20 Hepatitis A IgM Ab Nonreactive Hep Bs Antigen Negative Hep Bs Antibody NONREACTIVE Hep B Core Total Ab Nonreactive Hepatitis C Ab (EIA) Nonreactive HIV 1&2 Ab/P24 Ag 4thGn Nonreactive CURRENT LABS 02/28/25 Total Bilirubin 0.3 Direct Bilirubin 0.1 AST 28 ALT 33 Alkaline Phosphatase 161 H ULTRASOUND OF THE ABDOMEN 02/04/2025 Findings: The visualized pancreatic head, aorta, and inferior vena cava are unremarkable. The liver is not well seen due to limited acoustic window, normal in size, grossly normal in echogenicity, no focal lesion is seen in the visualized liver. No bile duct dilatation. Common duct 3 mm diameter. Physiologic distention of the gallbladder, no stone is seen, avascular nonshadowing echogenic focus 4 mm along the gallbladder wall may reflect small polyp. No gallbladder wall thickening. Negative sonographic Moss's sign. Main portal vein shows antegrade flow. Bilateral kidneys are not well seen due to bowel gas shadowing, they appear enlarged with diffusely increased echogenicity, right kidney measures 16.3 cm in length, left kidney 16.6 cm in length, no apparent calculus or hydronephrosis. Numerous simple and septated cysts of the bilateral kidneys, dominant cyst of the each kidney is simple, 6.2 cm on the right, 5.0 cm on the left, please note multiple cysts including the septated cyst are not well visualized. Spleen is partially visualized, grossly normal, 10.6 cm in length. No free fluid in the right upper quadrant of the abdomen. Impression: 1. Suggestion of medical renal disease and polycystic kidney disease, renal cysts are not well visualized. 2. Probable 4 mm gallbladder polyp. MRI OF THE ABDOMEN 03/28/2025 IMPRESSION: Concerning autosomal dominant polycystic kidney disease in the correct clinical settings. Multiple likely hemorrhagic cystic lesions, bilaterally. Subcentimeter cystic lesions, head and tail of the pancreas. Hepatomegaly, mild. Code(s): R79.89 - Other specified abnormal findings of blood chemistry Category: Medical (3) Irritable bowel syndrome with both constipation and diarrhea: Code(s): K58.2 - Mixed irritable bowel syndrome Category: Medical Plan We change from omeprazole 20 mg a day to lansoprazole to try to 8 him with his renal function since lansoprazole is metabolize more through the liver then the kidneys. His GERD was well controlled. He is now struggling with his renal status as recent imaging seems to show polycystic kidney disease. Apparently he was also positive for genetic screening for this. He continues to follow with Nephrology but his GFR is quite low averaging in the low 20s the last being 22. We review all of his liver labs and it appears that his fatty liver is quite stable and is even improved slightly. I think this is more to do with him controlling his sugars since he has gained some weight. Apparently he recently was taken off of insulin because he was controlling his sugars quite well. Return office visit in 6 months Medications: New lansoprazole 30 mg PO DAILY 30 caps 6RF K21.9 - Gastro-esophageal reflux disease without esophagitis calcium polycarbophil (Fiber (calcium polycarbophil)) 625 mg PO BID PRN 60 tabs 6RF constipation K58.2 - Mixed irritable bowel syndrome Discontinued omeprazole Discontinued Reason: Doctor's Order 20 mg PO DAILY 90 caps 2RF Coding Level of Care Code Est Pt Level 3 (47642) Diagnoses Gastroesophageal reflux disease without esophagitis K21.9 Esophagitis presence: without esophagitis Elevated LFTs R79.89 Irritable bowel syndrome with both constipation and diarrhea K58.2
[2025-05-03 10:32] VITALS: BP 126/99; PULSE 72; BMI 31.4
--- OUTSIDE RECORDS SUMMARY | 2025-05-03 11:25 | XMS_ITS | Clinical Summary ---
Author Organization [facility] Address [address] [place] [address] Phone Care Team Providers Care Office Clin Asst Name Role Phone Zeb Ca MD Primary Care Provider [phone] Allergies No known active allergies Medications zonisamide [...] diskus inhaler Activ e ergocalciferol 1.25 MG (10963 UT) capsule Take 1 capsule by mouth [...] Office Communication [facility] [address] [phone] Brenda Jiménez 03/31/2025 10:15 AM EDT Office Visit [facility] [address] [phone] Nelson Knowles MD Autosomal dominant polycystic kidney disease (Primary Dx); Type 2 diabetes mellitus with peripheral angiopathy (HCC); Renal osteodystrophy; Essential hypertension 02/28/2025 Orders Only [facility] [address] [phone] Nelson Knowles MD 02/24/2025 Refill [facility] [address] [place] [address] Nelson Knowles MD 02/17/2025 10:45 AM EDT Office Visit [facility] [address] [phone] Nelson Knowles MD Chronic kidney disease, stage 4 (severe) (HCC) (Primary Dx); Renal disorder due to type 2 diabetes mellitus <Diabetic nephropathy> (HCC); Autosomal dominant polycystic kidney disease 02/08/2025 Office Communication [facility] [address] [phone] JessyBrenda from Last 3 Months [...] Only [facility] [address] [place] [address] Nelson Knowles MD [address] [phone] Chronic kidney disease, stage 4 (severe) (HCC); Renal osteodystrophy 10/03/2025 3:00 PM EST Office Visit [facility] [address] [place] [address] Nelson Knowles MD [address] [phone] Health Maintenance Due Date Last [...] ORDERABLES Final Re sult Performing Organization Address [facility] de Phone Number [place] See order comments [place] [address] * (ABNORMAL) Albumin, urine, random (02/28/2025 8:09 AM EDT) Pathologist [facility] Creatinine, Urine 25.96 mg/dL Se e order comments Urine Microalbumin 52.0 mg/L See order comments Microalbumin/Crea tinine Ratio 200.3(H) <30 ug/mg cr See order comments Comment: Albumin/Creatinine Ratio Reference Ranges: Normal: < 30 ug/mg creatinine Microalbuminuria: 30 - 300 ug/mg creatinine Clinical Albuminuria: > 300 ug/mg creatinine 02/28/2025 8:09 AM EDT 02/28/2025 8:09 AM EDT Nelson Knowles MD LAB URINE ORDERABLES Final Re [facility] Performing Organization Address [facility] de Phone Number [place] See order comments [place] [address] * (ABNORMAL) Urinalysis with microscopic (02/28/2025 8:09 AM EDT) Color Urine Yellow See orde r comments Appearance Urine Clear See order comments pH Urine 6.0 5.0 - 9.0 See order comments Glucose Urine 250(A) Negative mg/dL See order comments Blood, Urine Negative Negative See ord er comments Specific [place] Urine <=1.005 1.005 - 1.025 See order [...] MD LAB URINE ORDERABLES Final Re sult [facility] See order comments [place] [address] * (ABNORMAL) Creatinine (02/28/2025 8:02 AM EDT) Creatinine Serum 2.97(H) 0.5 - 1.4 mg/dL See order comments eGFR (Calc) 22 See orde r comments Comment: Chronic Kidney Disease: Estimated GFR < 60 mL/min/1.73m2 Severe Kidney Disease: Estimated GFR < 15 mL/min/1.73m2 02/28/2025 8:02 AM EDT 02/28/2025 8:02 AM EDT us Nelson Knowles MD LAB BLOOD ORDERABLES Final Re sult Performing Organization Address City/[facility]/ZIP Co de Phone Number See order comments [place] [address] * (ABNORMAL) PTH, Intact (02/28/2025 8:02 AM EDT) Parathyroid Hormone, Intact 174.6(H) 8.7 - 77.1 pg/mL See order comments 02/28/2025 8:02 AM EDT 02/28/2025 8:02 AM EDT Nelson nKowles MD LAB [id number] SOLICITED RESULTS Final Result [place] See order comments [place] [address] * (ABNORMAL) CBC and Differential (02/28/2025 8:02 [...] ORDERABLES Final Re sult Performing Organization Address [facility] Phone Number [place] See order comments [place] [address] * (ABNORMAL) BUN (02/28/2025 8:02 AM EDT) BUN 50(H) 9 - 16 mg/dL See order comments 02/28/2025 8:02 AM EDT 02/28/2025 8:02 AM EDT us Nelson Knowles MD LAB BLOOD ORDERABLES Final Re sult Performing Organization Address [facility] Phone Number [place] See order comments [place] [address] * ALT (02/28/2025 8:02 AM EDT) ALT (SGPT) 33 0 - 40 U/L See orde r comments Blood Venous blood / Unknown 02/28/2025 8:02 AM EDT 02/28/2025 8:02 AM EDT us Nelson Knowles MD LAB BLOOD ORDERABLES Final Re sult Performing Organization Address [facility] Phone Number [place] See order comments [place] [address] * AST (02/28/2025 8:02 AM EDT) AST (SGOT) 28 5 - 37 U/L See orde r comments Blood Venous blood / Unknown 02/28/2025 8:02 AM EDT 02/28/2025 8:02 AM EDT us Nelson Knowles MD LAB BLOOD ORDERABLES Final Re sult Performing Organization Address [facility] Phone [facility] See order comments [place] [address] * (ABNORMAL) Alkaline phosphatase (02/28/2025 8:02 AM EDT) Alkaline phosphatase 161(H) 39 - 117 U/L See order comments Blood Venous blood / Unknown 02/28/2025 8:02 AM EDT 02/28/2025 8:02 AM EDT us Nelson Knowles MD LAB BLOOD ORDERABLES Final Re sult Performing Organization Address [facility] de Phone Number [place] See order comments [place] [address] * Calcium (02/28/2025 8:02 AM EDT) Calcium 9.0 8.4 - 10.2 mg/dL See order comments 02/28/2025 8:02 AM EDT 02/28/2025 8:02 AM EDT us Nelson Knowles MD LAB BLOOD ORDERABLES Final Re sult Performing Organization Address [facility] Phone Number [place] See order comments [place] [address] * Bilirubin, direct (02/28/2025 8:02 AM EDT) Bilirubin, Direct 0.1 0.0 - 0.5 mg/dL See order comments 02/28/2025 8:02 AM EDT 02/28/2025 8:02 AM EDT us Nelson Knowles MD LAB BLOOD ORDERABLES Final Re sult Performing Organization Address [facility] de Phone Number [place] See order comments [place] [address] * Bilirubin, total (02/28/2025 8:02 AM EDT) Total Bilirubin 0.3 0.0 - 1.0 mg/dL See order comments 02/28/2025 8:02 AM EDT 02/28/2025 8:02 AM EDT us Nelson Knowles MD LAB BLOOD ORDERABLES Final [facility]ult [facility] See order comments [place] [address] * (ABNORMAL) Electrolyte panel (02/28/2025 8:02 AM [...] order comments [place] [address] * ALT EXT LABS (09/01/2024) Hemoglobin A1C 5.5 4.0 - 6.0 09/01/2024 Historical Provider LAB BLOOD ORDERABLES Lizbeth l Result from Last 3 Months or Most Recently Relevant to Health Maintenance Insurance [facility] ([id number]) [facility] ([id number]) JUSTIN ROSALES [id number] Care Teams Office Clin Asst Relationship Specialty Start Date End Date Zeb Ca MD [address] [place], [place] [id number] PCP - General Internal Medicine 09/21/21
--- OUTSIDE RECORDS SUMMARY | 2025-05-03 11:25 | XMS_ITS | Patient Health Record ---
Author Organization [facility] Address [address] [place] [address] Care Team Providers Care Manager Financial Reporting Name Role Phone Roby GUTIERREZ, [place] Primary Care Provider Unava Emiliano Miller Unavailable [phone] Reason For Referral No Information Plan Of Treatment No Information Insurance Providers Payer Name Payer Address Payer Phone Subscriber Number Group Number Insured Name Patient Relationship to Insured Coverage Start Date Coverage End Date [facility] [address] [place] [address] [id number] SAMEER HERR Self - patient is the insured
--- OUTSIDE RECORDS SUMMARY | 2025-05-03 11:25 | XMS_ITS | Clinical Summary ---
Author Organization 175 [facility] Address 175 [place] [address] Phone Care Team Providers Care Court Recording Monitor Name Role Phone Zeb Ca MD Primary Care Provider + [phone] Allergies No known active allergies Medications albuterol [...] Care Team Description 04/12/2025 Telephone Orthopedic Surgery [facility] [address] [phone] Michael Mercedes DPM 04/11/2025 Telephone Orthopedic Surgery [place] [address] [address] Marion Black 03/22/2025 1:00 PM EDT Office Visit [place] [address] [address] Michael Mercedes DPM Tendonitis, Achilles, left (Primary Dx); Bursitis of left foot; Dermatophytosis of nail; Corns and callosities; Pain in toe of right foot; Type II diabetes mellitus with peripheral circulatory disorder ([facility] V24, [facility] V28); Pain in toe of left foot; Diabetic mononeuropathy simplex ([facility] V24, [facility] V28); Metatarsalgia of both feet from Last [...] 05/05/2025 1:15 PM EDT Office Visit Orthopedic [place] [address] [phone] Michael Mercedes DPM [address] [phone] Health Maintenance Due Date Last Done Comments Colorectal Cancer Screening: Colonoscopy 1971 Diabetes: Annual GFR (Glomerular Filtration Rate) 1971 Diabetes: Annual Foot Exam 1981 Diabetes: Annual Retina Eye Exam 1981 Hepatitis B Vaccines (1 of 3 - 19+ 3-dose series) 1990 Pneumococcal Vaccine: 50+ Years (2 of 2 - PCV) 05/03/2020 05/03/2019, 02/01/2016 Zoster Vaccines (2 of 2) 07/29/2022 06/03/2022 DTaP,Tdap,and Td Vaccines (2 - Td or Tdap) 01/28/2023 01/28/2013 Cholesterol Screening (Lipid Panel) 03/05/2024 HIV Screening 03/05/2024 Hepatitis C Screening [...] increase walking capacity to 2 hrs Insurance [facility] MEDICARE Member Subscriber Plan / Payer (Ef fective 2015-Present) Name:SAMEER MUNOZ Relation to Subscriber:Self Name:Sameer Munoz Payer ID:[id number] Group ID:[id number] Type:Not on file Address: [address] [place] [id number] MEDICAID - [place] Care Teams Court Recording Monitor Relationship Specialty Start Date End Date Zeb Ca MD [address] [place] [address] [address] [place] PCP - General Internal Medicine 05/07/24
== END 2025-05-03 11:16 | disposition home or self-care (01) ==
LOC: HO.HGI 10:16
PROVIDERS: PCP Internal Medicine; Visit Provider Nurse Practitioner
DX: K21.9 Gastro-esophageal reflux disease without esophagitis (principal); R79.89 Other specified abnormal findings of blood chemistry; K58.2 Mixed irritable bowel syndrome
CPT/HCPCS: 99213

== ENCOUNTER → 2025-05-03 10:16 | Outpatient (BNVA) | payer OTHER, SELFPAY | PROVIDERS: PCP Internal Medicine; Visit Provider Nurse Practitioner | DX: K21.9 Gastro-esophageal reflux disease without esophagitis (principal); K58.2 Mixed irritable bowel syndrome; R79.89 Other specified abnormal findings of blood chemistry | CPT/HCPCS: 99212 ==

== ENCOUNTER 2025-06-01 09:59 | Outpatient (AMB) | payer OTHER, SELFPAY ==
--- NOTE | 2025-06-01 10:02 | A.OFFVIS_ITS ---
Vital Signs 06/01/25 10:03 Height 5 ft 9 in Weight 211 lb 10.3 oz BMI 31.3 BP 122/76 Blood Pressure Location Rt brachial Position Sitting Pulse 75 Pulse Source Pulse Oximeter Pulse Oximetry (%) 96 Oxygen Delivery Method Room Air Intake Visit Reasons: DMT1 Intake Note: Patient presents today for a follow-up on Type 1 Diabetes Mellitus: Last Diabetic eye exam was on: 10/15/2024, [facility]. Last Podiatry exam was on: 05/05/2025, [facility] Dr Mercedes. Most recent HbA1c: 6.4%, 06/01/2025 Random Glucose- 145 mg/dL, Today [employer] Labourer Required: No Accompanied by: Self / Same As Patient Allergies gabapentin Allergy (Unknown, Verified 06/01/25 10:03) kidneys can't break it HPI Comments Details: The patient is a 55-year-old individual with a history of diabetes mellitus, HTN, Vit D deficiency, bipolar disorder and schizophrenia, Chronic kidney disease stage 4, PCKD, seen in the office for evaluation and management of diabetes. Initially diagnosed at age 22 following hospitalization for diabetic ketoacidosis (DKA). At diagnosis, the patient was started on an oral antihyperglycemic agent (name not recalled, possibly a sulfonylurea or similar), which was continued for approximately one year. Insulin therapy was initiated after one year due to worsening glycemic control, not due to recurrent DKA. The patient was subsequently managed with long-acting insulin (Lantus), initially at 12 units daily, later reduced to 8 units daily, in conjunction with lifestyle modifications including regular exercise and dietary changes. The patient also trialed Trulicity, but discontinued it independently after the machine carton marker ran out of the prescribed dose. The patient has been off all diabetes medications, including insulin and GLP-1 agonists, for the past 8?9 months, with no episodes of DKA or hospitalizations since discontinuation. The patient reports ongoing adherence to lifestyle modifications, including regular gym attendance and dietary vigilance. Weight has decreased from a maximum of 222 lbs to a current range of 186?190 lbs, with the most recent weight loss being gradual and not concerning for rapid or unexplained loss. The patient denies current symptoms of hyperglycemia (polyuria, polydipsia, polyphagia) or hypoglycemia. The most recent self-monitored blood glucose was 140 mg/dL. The patient is not routinely checking blood sugars at home. Complications/Screening: Retinopathy: Last eye exam was last year; no reported diabetes-related ocular complications. Nephropathy: Recent labs noted proteinuria. Neuropathy: Reports intermittent tingling in the feet, primarily after prolonged walking/exercise. No persistent or nocturnal symptoms. Has been evaluated by podiatry for Achilles tendonitis, treated with corticosteroid injections, with good response. Cardiovascular: No history of IA or CVA. Patient is not currently monitoring his blood sugar. Physical exam: General: Well appearing. NAD. CV: RRR, no murmur. No edema. Resp:Lungs clear to auscultation bilaterally Abdomen: Soft, nontender. nondistended Extremities/Neuro: No weakness or tremor of outstretched hands labs: Laboratory Tests 04/30/24 12/09/24 02/28/25 07:57 15:32 08:02 Hgb 10.6 L 11.1 L Hct 32.2 L 34.6 L Sodium 140 Potassium 5.1 BUN 50 H Creatinine 2.97 H Glucose (Clinic) Hgb A1c (Clinic) Calcium 9.0 D ELEUTERIO Antibody 14 H 06/01/25 06/01/25 10:09 10:18 Hgb Hct Sodium Potassium BUN Creatinine Glucose (Clinic) 145 H Hgb A1c (Clinic) 6.4 H Calcium ELEUTERIO Antibody [facility] Medical History Peripheral neuropathy Essential hypertension Right shoulder pain Paresthesia of both lower extremities Type 2 diabetes mellitus with diabetic chronic kidney disease Type 2 diabetes mellitus with hyperglycemia Left shoulder pain Chronic kidney disease, stage 3 Difficulty walking Dental caries Preoperative examination Synovial cyst of elbow COVID-19 Type 1 diabetes Type 1 diabetes mellitus Polycystic kidney disease Lumbar spondylosis Degenerative joint disease of thoracic spine Overweight (BMI 25.0-29.9) Chronic kidney disease, stage 4 (severe) Prolonged QT interval Hyperkalemia Memory impairment Vitamin D deficiency Hypothyroidism Seizures Anxiety Fatty liver IBS (irritable colon syndrome) GERD (gastroesophageal reflux disease) Obesity (BMI 30-39.9) Schizoaffective disorder Asthma Epilepsy Pure hypercholesterolemia MCC (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 Surgical History History of surgery on lower extremity History of dental surgery H/O colonoscopy Family History Father No problems noted. 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 Cognitive needs: No Hearing needs: No Vision needs: Yes (glasses) Physical Exam Vital Signs: Last Vital Signs Pulse 75 06/01/25 10:03 BP 122/76 06/01/25 10:03 Pulse Ox 96 06/01/25 10:03 Oxygen Delivery Method Room Air 06/01/25 10:03 BMI result Body Mass Index 31.3 Results AMB Hemoglobin A1c AMB Hemoglobin A1c 6.4 % Last Edit by GABE Mota on 06/01/25 10:19 Results Reviewed Results Reviewed: Laboratory Last Values Glucose (Clinic) 145 mg/dL (60-115) H 06/01/25 10:09 Hgb A1c (Clinic) 6.4 % (4.0-6.0) H 06/01/25 10:18 Assessment & Plan Assessment & Plan (1) Type 1 diabetes mellitus: Code(s): E10.9 - Type 1 diabetes mellitus without complications Category: Medical Qualifiers: Chronic kidney disease stage: stage 4 (GFR 15-29) Diabetes mellitus complication detail: with chronic kidney disease Diabetes mellitus complication status: with kidney complications Qualified Code(s): E10.22 - Type 1 diabetes mellitus with diabetic chronic kidney disease; N18.4 - Chronic kidney disease, stage 4 (severe) Plan: 55 years old male with past medical history of HTN, Vit D deficiency, bipolar disorder and schizophrenia, Chronic kidney disease stage 4, PCKD, seen in the office for evaluation and management of diabetes. The patient was diagnosed with diabetes at age 22 after presenting with DKA, initially managed with oral agents, then transitioned to insulin due to worsening glycemic control. 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 He is maintaining euglycemia with lifestyle alone. The clinical course is atypical for classic type 1 diabetes, as patients with absolute insulin deficiency typically cannot discontinue insulin for this duration without metabolic decompensation. The course is more consistent with slowly progressive autoimmune diabetes (JAMEY), atypical type 1, or type 2 diabetes with a false positive antibody. Plan Current A1c is not reliable in the setting of anemia of chronic disease due to CKD stage 4. We will obtain fructosamine which is not affected by anemia C-peptide (random, non-fasting): Assess endogenous insulin production. Repeat GAD65 antibody and ZnT8 to further clarify autoimmune status. Encourage periodic self-monitoring of blood glucose, especially if symptoms of hyperglycemia or hypoglycemia develop, or if there are changes in weight, activity, or health status. Plan 45 minutes spent reviewing previous records, labs, imaging, education and documenting in the chart Orders: Orders AMB Hemoglobin A1c Today E10.22 - Type 1 diabetes mellitus with diabetic chronic kidney disease, N18.4 - Chronic kidney disease, stage 4 (severe) Fructosamine Today E10.22 - Type 1 diabetes mellitus with diabetic chronic kidney disease, N18.4 - Chronic kidney disease, stage 4 (severe) Glutamic acid decarboxylase Ab Today E10.22 - Type 1 diabetes mellitus with diabetic chronic kidney disease, N18.4 - Chronic kidney disease, stage 4 (severe) ZNT8 Antibodies Today E10.22 - Type 1 diabetes mellitus with diabetic chronic kidney disease, N18.4 - Chronic kidney disease, stage 4 (severe) C Peptide Today E10.22 - Type 1 diabetes mellitus with diabetic chronic kidney disease, N18.4 - Chronic kidney disease, stage 4 (severe) Coding Level of Care Code Est Pt Level 4 (65238) Diagnoses Type 1 diabetes mellitus with stage 4 chronic kidney disease E10.22; N18.4 Chronic kidney disease stage: stage 4 (GFR 15-29) Diabetes mellitus complication detail: with chronic kidney disease Diabetes mellitus complication status: with kidney complications
[2025-06-01 10:03] VITALS: BP 122/76; PULSE 75; O2SAT 96; BMI 31.3
[2025-06-01 10:13] LABS: Glucose, Whole Blood 145 mg/dL (60-115)
--- OUTSIDE RECORDS SUMMARY | 2025-06-01 12:07 | XMS_ITS | Clinical Summary ---
Author Organization 175 [facility] Address 175 [place] [address] Phone Care Team Providers Care Deck Engine Operator Name Role Phone Zeb Ca MD Primary Care Provider + [phone] Allergies No known active allergies Medications albuterol [...] lidocaine (PF) (XYLOCAINE-MPF) 1 % injection 0.5 mLIndications:Tendon itis, Achilles, left,Bursitis of left foot,Plantar fascial fibromatosis .5 mL Once PRN Procedure 05/05/2025 05/05/2025 Ended triamcinolone acetonide (KENALOG-40) 40 mg/mL injection 20 mgIndications:Tendon itis, Achilles, left,Bursitis of left foot,Plantar fascial fibromatosis 20 mg Once PRN Procedure 05/05/2025 05/05/2025 Ended Active Problems Problem Noted Date Diagnosed Date Type 2 diabetes mellitus wit h hyperglycemia ([facility] V24, [facility] V28) 06/09/2024 Polycystic kidney disease 06/09/2024 GERD (gastroesophageal reflux disease) IBS (irritable bowel syndrome) 06/09/2024 Fatty liver 06/09/2024 Prolonged QT interval 06/09/2024 Encounters Date Type Department Care Team Description 05/24/2025 Telephone Orthopedic Surgery [place] [address] [phone] Michael Mercedes DPM 05/10/2025 Telephone Orthopedic [facility] [address] [phone] Michael Mercedes DPM 05/05/2025 1:15 PM EDT Office Visit Orthopedic [place] [address] [phone] Michael Mercedes DPM Tendonitis, Achilles, left (Primary Dx); Bursitis of left foot; Dermatophytosis of nail; Plantar fascial fibromatosis 04/12/2025 Telephone Orthopedic [facility] [address] [address] Michael Mercedes DPM 04/11/2025 Telephone Orthopedic [facility] [address] [phone] Marion Black 03/22/2025 1:00 PM EDT Office Visit Orthopedic [place] [address] [phone] Michael Mercedes DPM Tendonitis, Achilles, left (Primary Dx); Bursitis of left foot; Dermatophytosis of nail; Corns and callosities; Pain in toe of right foot; Type II diabetes mellitus with peripheral circulatory disorder ([facility] V24, [facility] V28); Pain in toe of left foot; Diabetic mononeuropathy simplex ([facility] V24, [facility] V28); Metatarsalgia of both feet from Last [...] Care Team (Late st Contact Info) Description 06/16/2025 9:15 AM EST Office Visit Orthopedic Surgery - [address] [phone] Michael Mercedes, DPM [address] [place] [phone] Health Maintenance Due Date Last Done Comments Colorectal Cancer Screening: Colonoscopy 1971 Diabetes: Annual GFR (Glomerular Filtration Rate) 1971 Diabetes: Annual Foot Exam 1981 Diabetes: Annual Retina Eye Exam 1981 Hepatitis B Vaccines (1 of 3 - 19+ 3-dose series) 1990 Pneumococcal Vaccine: 50+ Years (2 of 2 - PCV) 05/03/2020 05/03/2019, 02/01/2016 RSV Immunization Adult Patients (1 - Risk 50-74 years 1-dose series) 2021 Zoster Vaccines (2 of 2) 07/29/2022 06/03/2022 [...] Diagnosis Comments INJECTION TENDON OR LIGAMENT Routine 05/05/2025 1:15 PM EDT Tendonitis, Achilles, left Bursitis of left foot Plantar fascial fibromatosis from Last 3 Months Results * Injection tendon or ligament (05/05/2025 1:15 PM EDT) Michael Romo DPM - 05/05/2025 1:15 PM EDT Michael Mercedes DPM 05/05/2025 6:04 PM Injection tendon or ligament Indications: pain Details: 25 G needle Medications: 0.5 mL lidocaine (PF) 1 %; 20 mg triamcinolone acetonide 40 mg/mL Informed Consent: Site: Foot ligament tendon us Michael Mercedes DPM IN CLINIC/BEDSIDE ORDERAB LES Edited Result - Final from Last 3 Months Insurance [facility] MEDICARE Member Subscriber Plan / Payer (Ef fective 2015-Present) Name:SAMEER MUNOZ Relation to Subscriber:Self Name:Sameer Munoz Payer ID:[id number] Group ID:[id number] Type:Not on file Address: [facility] [address] [place] [phone] MEDICAID - [place] Care Teams Deck Engine Operator Relationship Specialty Start Date End Date Zeb Ca MD [address] [place] [address] Zohra [address] [place] PCP - General Internal Medicine 05/07/24
--- OUTSIDE RECORDS SUMMARY | 2025-06-01 12:07 | XMS_ITS | Clinical Summary ---
Author Organization [facility] Address [address] [place] [address] Phone Care Team Providers Care Extension Service Specialist In Charge Name Role Phone Zeb Ca MD Primary Care Provider [phone] Allergies No known active allergies Medications zonisamide [...] diskus inhaler Activ e ergocalciferol 1.25 MG (88309 UT) capsule Take 1 capsule by mouth [...] mouth every other day 45 capsule 3 05/12/20 25 026 Active sodium bicarbonate 650 MG tablet TAKE 1 TABLET BY MOUTH IN THE MORNING, 1 TAB AT NOON, 1 TAB IN EVENING, AND 1 TAB AT BEDTIME DAILY 360 tablet 05/23/20 25 Active calcitriol (Rocaltrol) 0.25 MCG capsule Take 1 capsule (0.25 mcg total) by mouth every other day 45 capsule 3 01/28/20 25 025 Discontinued(Re order (does not appear on AVS)) sodium bicarbonate 650 MG tablet TAKE 1 TABLET BY MOUTH IN THE MORNING, 1 TAB AT NOON, 1 TAB IN EVENING, AND 1 TAB AT BEDTIME DAILY 360 tablet 02/26/20 25 025 Discontinued Active Problems Problem Noted [...] Encounters Date Type Department Care Team Description 05/20/2025 Refill [facility] [address] [place], [place] [address] Nelson Knowles MD 05/12/2025 Refill [facility] [address] [place] [phone] Narcisa Davis MA 05/11/2025 Orders Only [facility] [address] [place] [phone] Nelson Knowles MD Chronic kidney disease, stage 4 (severe) (HCC); Renal osteodystrophy 03/31/2025 10:15 AM EDT Office Visit [facility] [place] [address] [phone] Nelson Knowles MD Autosomal dominant polycystic kidney disease (Primary Dx); Type 2 diabetes mellitus with peripheral angiopathy (HCC); Renal osteodystrophy; Essential hypertension from Last 3 Months Family History Relation [...] Care Team (Late st Contact Info) Description 10/03/2025 3:00 PM EST Office Visit [facility] [address] [place] [phone] Nelson Knowles MD [address] [phone] Health Maintenance Due Date Last Done Comments [...] Most Recently Relevant to Health Maintenance Insurance [facility] ([id number]) [place] [phone] [facility] ([id number]) [place] [phone] Care Teams Extension Service Specialist In Charge Relationship Specialty Start Date End Date Zeb Ca MD [address] [place] [address] PCP - General Internal Medicine 09/21/21
--- OUTSIDE RECORDS SUMMARY | 2025-06-01 12:07 | XMS_ITS | Data Portability ---
Author Organization [employer] [facility], [employer] [facility] Address [address] [place] [address] Care Team Providers Care Triage Register Nurse Name Role Phone HIM CCA OTHER Assessment Encounter Date Assessment Date Assessment LastModified by Organization Details LastModified Time 12/25/2022 12/25/2022 Mr. Shaheen Munoz is a 52yoM w/ a PmHx of CKD, DM2 who is seen today for right sided chest pain. Mr. Munoz reports that on Friday he developed right sided chest pain that radiated towards his back. He presented to [place] ED where he was told that it wasn't cardiac in nature and was likely muscular pain. He states that the pain improved but then reoccured today while walking around. He reports that it is worsened by moving his right arm. No left sided chest pain or shortness of breath, no numbness/tingli ng to b/l UE. Took tylenol with minimal relief this morning. VSS. Budget Report Clerk on site reports no distress. 12 lead obtained and without ST elevations or depressions suggestive of ACS Given recent ED presentation of similar pain and atypical location, unlikely to be ACS or aortic pathology. PE less likely given normal SpO2, no tachycardia, no pleuritic pain/SOB. Aggravated with motion and will treat with a one time dose of toradol now. Primary team, Mr. Munoz would benefit from follow up in the next few days to make sure that his right sided chest pain is improving. Not available 12/25/2022 17:41:25 Plan of Treatment Reminders Order Date Submit Date Provider Last Modified By Organization Details Last Modified Time Details Appointments None recorded. Lab None recorded. Referral None recorded. Procedures None recorded. Surgeries None recorded. Imaging None recorded. Medication Orders ketorolac 60 mg/2 mL intramuscul ar solution 2022 023 Not available 05/24/202 3 21:14:22 Patient TargetsNo targets recorded. Patient InstructionsNo instructions recorded. Reason for Referral None Reported. Medical Equipment None Reported. Medications Name Sig Start Date Stop Date Status Note LastModified by Organization Details LastModified Time fluoxetine 40 mg capsule TAKE 2 CAPSULES BY MOUTH EVERY DAY IN THE MORNING active Not Available Not Available No t Available lamotrigine 200 mg tablet TAKE 1 TABLET BY MOUTH TWICE A DAY active Not Available Not Available No t Available trazodone 50 mg tablet TAKE 1 TABLET BY MOUTH EVERYDAY AT BEDTIME active Not Available Not Available No t Available atorvastatin 10 mg tablet TAKE 1 TABLET BY MOUTH EVERY DAY AT BEDTIME active Not Available Not Available No t Available tizanidine 4 mg tablet TAKE 1 TABLET BY MOUTH 3 TIMES A DAY NEEDED FOR FOR MUSCLE SPASM active Not Available Not Available No t Available FreeStyle Lancets 28 gauge USE 1 LANCET TO TEST EVERY DAY active Not Available Not Available No t Available zonisamide 100 mg capsule TAKE 4 CAPSULES BY MOUTH EVERY DAY active Not Available Not Available No t Available levothyroxin e 125 mcg tablet TAKE 1 TABLET BY MOUTH EVERY DAY active Not Available Not Available No t Available omeprazole 20 mg capsule,elias yed release TAKE 1 CAPSULE BY MOUTH EVERY DAY FOR 30 DAYS. active Not Available Not Available No t Available ergocalcifer ol (vitamin D2) 1,250 mcg (50,000 unit) capsule TAKE 1 CAPSULE BY MOUTH EVERY WEEK active Not Available Not Available No t Available fluoxetine 20 mg capsule TAKE 1 CAPSULE BY MOUTH EVERY DAY IN THE MORNING active Not Available Not Available No t Available lisinopril 2.5 mg tablet TAKE 1 TABLET BY MOUTH TWICE A DAY active Not Available Not Available No t Available aripiprazole 5 mg tablet TAKE 1 TABLET BY MOUTH EVERY DAY IN THE MORNING active Not Available Not Available No t Available Flovent HFA 220 mcg/actuatio n aerosol inhaler INHALE 1 PUFF BY MOUTH TWICE A DAY active Not Available Not Available No t Available Lantus Solostar U-100 Insulin 100 unit/mL (3 mL) subcutaneous pen INJECT 8 UNIT SUBCUTANEOU SLY EVERY EVENING active Not Available Not Available No t Available Fiber (calcium polycarbophi l) 625 mg tablet TAKE 1 TABLET BY MOUTH TWICE A DAY NEEDED FOR CONSTIPATIO N active Not Available Not Available No t Available melatonin 5 mg tablet TAKE 1 TABLET BY MOUTH EVERYDAY AT BEDTIME active Not Available Not Available No t Available Farxiga 10 mg tablet TAKE 1 TABLET BY MOUTH ONCE DAILY active Not Available Not Available No t Available Trulicity 1.5 mg/0.5 mL subcutaneous pen injector INJECT 1 PEN SUBCUTANEOU SLY ONCE WEEKLY active Not Available Not Available No t Available BD Leeanne 2nd Gen Pen Needle 32 gauge x USE ONCE A DAY active Not Available Not Available No t Available Fish Oil 1,200 mg (144 mg-216 mg) capsule TAKE 1 CAPSULE BY MOUTH EVERY DAY active Not Available Not Available No t Available Vitals Date Recorded Heart rate Respiratory rate Oxygen saturation Oxygen saturation in Arterial blood by Pulse oximetry Systolic And Diastolic Provider Name and Address Organization Details Last Updated DateTime 3 85 /min 20 /min 98 % 98 % 122/84 mm[Hg] Not Available [facility] - production 3 15:50:58 Social History None recorded. Functional Status None recorded. Mental Status None recorded. Family History Nothing Reported. Medical History No medical history recorded. Past Encounters Encounter ID Performer Location Encounter Start Date Encounter Closed Date Diagnosis/Indication Diagnosis SNOMED-CT Code Diagnosis ICD10 Code Diagnosis IMO Codes Diagnosis Note [id number] Lilli López MD [facility] - [facility] [address] [place] [phone] 12/25/2022 15:50:55 12/27/2022 14:03:53 Chest wall pain 231372759 R07.89 Health Concerns Section Related Observation LastModified by Organization Detai ls LastModified Time None Recorded Concern Status LastModified by Organization Details LastModified Time None Recorded Advance Directives Directive None Recorded Payers Insurance Date Sequence Insurance Name Policy Number Policy Foreman Covered Member ID Foreman Member ID Guarantor Name 12/05/2023 1 [facility] - DOS ON OR AFTER 2022 - DUAL ELIGIBLE - ALF OPTIONS AND ONE CARE (MEDICARE REPLACEMENT/ADV ANTAGE - HMO) Shaheen Munoz [id number] Shaheen Munoz Notes Date Note Type Note Provider Name and Address Organization Details Recorded Time 12/25/2022 text/html HPI: 52 y.o. M reports going to [facility] ER on Sat due to cp. He stayed to complete testing and was told pain was related to muscular strain, mentioning that he thinks he lifted a heavy box earlier that day. Mbr c/o intermittent R-sided cp returning today while at rest, though he finds it hard to describe quality of pain. Pain is rated at 2/10 at this time and R chest is tender to the touch. Jayla denies sob, dizziness, nausea, diaphoresis, L arm or jaw pain, but was advised if any of these develop to call 911. He states he called his PCP today and they advised him to go to the ER, but he does not want to go again. Jayla has not taken anything for pain, stating he has tylenol and ibuprofen at home that he usually takes at night. He was advised to try either tylenol or ibuprofen (w/ food) to see if this relieves mild discomfort he is describing. Jayla also agreed to [facility] eval. He was made aware he can call the [facility] 24/02 for any new or worsening s/sx. PMHx includes seizures, CKD, schizoaffective disorder. ..................... ..................... ..................... ..................... ..................... ..................... ............... CRC Nursing Assessment: Comments: CRC RN DID NOT NEED FURTHER INFO ..................... ..................... ..................... ..................... ..................... ..................... ............... Budget Report Clerk Note From Boris Wheeler: [facility] dispatched to location for PT with chest pain. U/A to location PT 52 y.o. male found ambulatory. PT presents awake CAOx4 with pink/warm/dry skin speaking full sentences. PT states he is experiencing right sided chest pain radiating into his back feels like a numb pain 7/10 on pain scale X 2.5 hours acute onset while walking. Pain increases with right arm movement. PT denies SOB, LS clear bi lat with room air SPO2 98%. PT states he self administered 1500mg tylenol via PO when pain started. PT states he was experiencing same pain approx 5 days ago (Friday) and went to the ER ([facility]) PT states ER told him blood labs were normal and ECG was normal and this was a muscular pain. PT does not have paperwork from visit. [facility] [place] and informed of PT condition/history. [facility] [place] 12 lead ECG and 15mg Ketorolac. [facility] crews completes 12 lead showing non diagnostic for STEMI. 15mg ketorolac administered via IM to PT right deltoid. *All times are approximate and red flags discussed* ..................... ..................... ..................... ..................... ..................... ..................... ............... Disposition: Fulfilled Lilli López MD [address] [facility],[address], [place], [address], [place] [employer] [facility] 12/25/2022 21:14:30
--- OUTSIDE RECORDS SUMMARY | 2025-06-01 12:07 | XMS_ITS | Encounter Summary ---
Author Organization [employer] Address [address] [place] [address] Care Team Providers Care Interior Assemblies Installer Name Role Phone Zeb Ca MD Primary Care Provider [phone] Reason for Visit * Reason Onset Date Comments PA needed 05/10/2025 Encounter Details Date Type Department Care Team (Late st Contact Info) Description 05/10/2025 Telephone Orthopedic Surgery - [place] [address] [place] [phone] Michael Mercedes, DPM [address] [place] [address] Social History Tobacco Use Types Packs/Day Years Used Date Smoking Tobacco: Never Assessed Sex and Gender Information Value Date Recorded Sex Assigned at Male 03/08/2025 5:50 PM EDT Legal Sex Male 11:07 AM EDT Gender Identity Male 03/08/2025 5:50 PM EDT Sexual Orientation Straight 03/08/2025 5: 50 PM EDT documented as of this encounter Progress Notes * [place] Black - 05/30/2025 9:38 AM EDT Patient called the office this morning stating that he received the notice of approval for the MRI. Patient would like to have the MRI scheduled at [place]. * Sofia Bhatia - 05/20/2025 3:33 PM EDT CCA requested clinicals via fax. Clinicals faxed with Standard PA request form Pending Determination * Sofia Bhatia - 05/18/2025 11:01 AM EDT JAN: 05/10/2025 FUV: 06/16/2025 MRI ordered by : DR MERCEDES Facility: [facility] PA sent: 05/18/2025 Clinical uploaded/faxed: Yes Additional Information: PENDING APPROVAL * Kalyani Rodriguez - 05/10/2025 3:12 PM EDT Joselyn, from [facility] MRI Dept, she is calling stating that a PA is needed for MRI, pt has CCA, and since Dr Mercedes is an outside provider , the office needs to obtain a Prior Auth.. Please advise. Any questions please call [phone]. Thanks. documented in this encounter Plan of Treatment Upcoming Encounters Date Type Department Care Team (Late st Contact Info) Description 06/16/2025 9:15 AM EST Office Visit Orthopedic Surgery - [address] [phone] Michael Mercedes, DPM [facility] [place] [address] documented as of this encounter Goals Goal [...] 2 hrs documented as of this encounter Visit Diagnoses Not on filedocumented in this encounter Care Teams Interior Assemblies Installer Relationship Specialty Start Date End Date Zeb Ca MD [address] [place] [address] Dr [address] [place] PCP - General Internal Medicine 05/07/24 documented as of this encounter
--- OUTSIDE RECORDS SUMMARY | 2025-06-01 12:07 | XMS_ITS | Patient Health Record ---
Author Organization [facility] Address [address] [place] [address] Care Team Providers Care Space And Missile Operations Name Role Phone Roby GUTIERREZ, [place] Primary Care Provider Unava Emiliano Miller Unavailable [phone] Reason For Referral No Information Plan Of Treatment No Information Insurance Providers Payer Name Payer Address Payer Phone Subscriber Number Group Number Insured Name Patient Relationship to Insured Coverage Start Date Coverage End Date [facility] [address] [place] [address] [id number] SAMEER HERR Self - patient is the insured
--- OUTSIDE RECORDS SUMMARY | 2025-06-01 12:07 | XMS_ITS | Encounter Summary ---
Author Organization [employer] Address [address] [place] [address] Care Team Providers Care Activities Specialist Name Role Phone Zeb Ca MD Primary Care Provider Reason for Visit * Reason Onset Date Comments Order for Diabetic boots 05/24/2025 Encounter Details Date Type Department Care Team (Late st Contact Info) Description 05/24/2025 Telephone Orthopedic Surgery - [place] [address] [place] [phone] Michael Mercedes, DPM [address] [place] [phone] Social History Tobacco Use Types Packs/Day Years Used Date Smoking Tobacco: Never Assessed Sex and Gender Information Value Date Recorded Sex Assigned at Male 03/08/2025 5:50 PM EDT Legal Sex Male 11:07 AM EDT Gender Identity Male 03/08/2025 5:50 PM EDT Sexual Orientation Straight 03/08/2025 5: 50 PM EDT documented as of this encounter Progress Notes * Kalyani Rodriguez - 05/24/2025 2:58 PM EDT Patient is calling for an Order for diabetic boots for Winter? Please advise, He states it should be faxed to [facility] @ [phone]. Thanks. documented in this encounter Plan of Treatment Upcoming Encounters Date Type Department Care Team (Late st Contact Info) Description 06/16/2025 9:15 AM EST Office Visit Orthopedic Surgery - [place] [address] [place] [phone] Michael Mercedes, DPM [address] [place] [phone] documented as of this encounter Goals Goal [...] on filedocumented in this encounter Care Teams Activities Specialist Relationship Specialty Start Date End Date Zeb Ca MD [address] [place] [address] [address] [place], [place] PCP - General Internal Medicine 05/07/24 documented as of this encounter
== END 2025-06-01 10:38 | disposition home or self-care (01) ==
LOC: HO.ENCR 10:00
PROVIDERS: PCP Internal Medicine; Visit Provider Student in an Organized Health Care Education/Training Program
DX: E10.22 Type 1 diabetes mellitus with diabetic chronic kidney disease (principal); N18.4 Chronic kidney disease, stage 4 (severe)
CPT/HCPCS: 99214

== ENCOUNTER → 2025-06-01 09:59 | Outpatient (BNVA) | payer OTHER, SELFPAY | PROVIDERS: PCP Internal Medicine; Visit Provider Student in an Organized Health Care Education/Training Program | DX: E10.22 Type 1 diabetes mellitus with diabetic chronic kidney disease (principal); E10.42 Type 1 diabetes mellitus with diabetic polyneuropathy; E10.65 Type 1 diabetes mellitus with hyperglycemia; N18.4 Chronic kidney disease, stage 4 (severe); Q61.3 Polycystic kidney, unspecified; Z79.4 Long term (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 | CPT/HCPCS: 82947; 83036; 99212 ==

== ENCOUNTER 2025-06-27 07:40 | Outpatient (REF) | payer OTHER, SELFPAY ==
--- OUTSIDE RECORDS SUMMARY | 2025-06-27 07:43 | XMS_ITS | Patient Health Record ---
Author Organization [facility] Address [address] [place] [address] Care Team Providers Care Beck Tender Name Role Phone Roby GUTIERREZ, [place] Primary Care Provider Unava Emiliano Miller Unavailable [phone] Reason For Referral No Information Plan Of Treatment No Information Insurance Providers Payer Name Payer Address Payer Phone Subscriber Number Group Number Insured Name Patient Relationship to Insured Coverage Start Date Coverage End Date [facility] [address] [place] [address] [id number] SAMEER HERR Self - patient is the insured
--- OUTSIDE RECORDS SUMMARY | 2025-06-27 07:43 | XMS_ITS | Clinical Summary ---
Author Organization [facility] Address [address] [place] [address] Phone Care Team Providers Care Hot Walker Name Role Phone Zeb Ca MD Primary Care Provider + [phone] Allergies No known active allergies Medications albuterol [...] Encounters Date Type Department Care Team Description 06/16/2025 9:15 AM EST Office Visit Orthopedic Surgery - [address] [phone] Michael Mercedes, DPM Tendonitis, Achilles, left (Primary Dx); Type II diabetes mellitus with peripheral circulatory disorder ([facility] V24, [facility] V28); Diabetic mononeuropathy simplex ([facility] V24, [facility] V28); Metatarsalgia of both feet; Corns and callosities; Dermatophytosis of nail; Pain in toe of left foot; Pain in toe of right foot 05/24/2025 Telephone Orthopedic Surgery [facility] [address] [phone] Michael Mercedes DPM 05/10/2025 Telephone Orthopedic Surgery [facility] [address] [phone] Michael Mercedes DPM 05/05/2025 1:15 PM EDT Office Visit Orthopedic [facility] [address] [phone] Michael Mercedes DPM Tendonitis, Achilles, left (Primary Dx); Bursitis of left foot; Dermatophytosis of nail; Plantar fascial fibromatosis 04/12/2025 Telephone Orthopedic Surgery [facility] [address] [phone] Michael Mercedes DPM 04/11/2025 [place] [facility] [address] [phone] Marion Black from Last 3 Months Social History Tobacco [...] Care Team (Late st Contact Info) Description 09/15/2025 10:00 AM EST Office Visit Orthopedic Surgery - [place] [address] [phone] Michael Mercedes, DPM [address] [phone] Health Maintenance Due Date Last Done Comments [...] BMP Blood Test 06/09/2024 Depression Screening 08/04/2024 COVID-19 Vaccine ( season) 2025 11/24/2024, 05/12/2023, 06/03/2022, Additional history exists Influenza Vaccine (#1) 2025 , 04/30/2022, 09/18/2021, Additional history exists Diabetes: Annual Urine Albumin-Creatinine Ratio (uACR) 02/28/2026 02/28/2025 HIB Vaccines Aged Out No longer eligi [...] tendon or ligament (05/05/2025 1:15 PM EDT) Narrative Michael Mercedes DPM - 05/05/2025 1:15 PM EDT Michael [...] ID:[id number] Group ID:[id number] Type:Not on file Address: [facility] [address] [id number] MEDICAID - [place] Care Teams Hot Walker Relationship Specialty Start Date End Date Zeb Ca MD [address] [place] [address] [address] [place], [place] PCP - General Internal Medicine 05/07/24
--- OUTSIDE RECORDS SUMMARY | 2025-06-27 07:43 | XMS_ITS | Clinical Summary ---
Author Organization [facility] Address [address] [place] [address] Phone Care Team Providers Care Signal Operator Linguist Name Role Phone Zeb Ca MD Primary Care Provider [phone] Allergies No known active allergies Medications zonisamide [...] diskus inhaler Activ e ergocalciferol 1.25 MG (05491 UT) capsule Take 1 capsule by mouth [...] every other day 45 capsule 3 5 05/12/20 26 Active sodium bicarbonate 650 MG tablet [...] 05/20/2025 Refill [facility] [address] [place] [phone] Nelson Knowles MD 05/12/2025 Refill [facility] [address] [facility] [address] [place] [phone] Narcisa Davis [place] 05/11/2025 Orders Only [facility] [address] [place] [address] Nelson Knowles MD Chronic kidney disease, stage 4 (severe) (HCC); Renal osteodystrophy 03/31/2025 10:15 AM EDT Office Visit [facility] [address] [phone] Nelson Knowles MD Autosomal dominant polycystic kidney disease (Primary Dx); Type 2 diabetes mellitus with peripheral angiopathy (HCC); Renal osteodystrophy; Essential hypertension from Last 3 Months Family History Relation Status Comments Father Mother Alive Social History Tobacco Use Types Packs/Day Years Used Date Smoking Tobacco: Former Cigarettes 0 Q uit: 08/04/2014 Tobacco Cessation:Counseling Given: Not [...] Team (Late st Contact Info) Description 10/03/2025 10:00 AM EST Office Visit [facility] [address] [phone] Nelson Knowles MD [address] [phone] Health Maintenance Due Date Last Done Comments [...] Most Recently Relevant to Health Maintenance Insurance [facility] ([id number]) [facility] ([id number]) Care Teams Signal Operator Linguist Relationship Specialty Start Date End Date Zeb Ca MD [address] [place] [address] PCP - General Internal Medicine 09/21/21
--- OUTSIDE RECORDS SUMMARY | 2025-06-27 07:43 | XMS_ITS | Encounter Summary ---
Author Organization [employer] Address [address] [place] [address] Care Team Providers Care Ward Assistant Name Role Phone Zeb Ca MD Primary Care Provider Reason for Visit * Reason Onset Date Comments Order for Diabetic boots 05/24/2025 Encounter Details Date Type Department Care Team (Late st Contact Info) Description 05/24/2025 Telephone Orthopedic Surgery - [place] [address] [phone] Michael Mercedes, DPM 175 [facility] [address] [place] [phone] Social History Tobacco Use Types Packs/Day Years Used Date Smoking Tobacco: Never Assessed Sex and Gender Information Value Date Recorded Sex Assigned at Male 03/08/2025 5:50 PM EDT Legal Sex Male 11:07 AM EDT Gender Identity Male 03/08/2025 5:50 PM EDT Sexual Orientation Straight 03/08/2025 5: 50 PM EDT documented as of this encounter Progress Notes * [place] Black - 06/13/2025 3:35 PM EST I spoke with the patient, he stated that he spoke with [facility] and they will cover two pairs of diabetic shoes. He was able to get a pair of boots but he is looking for a new order for sneakers. Once completed, please fax to [facility] in [place]. Dr. Mercedes, I did pend an order for Diabetic shoes specifying sneakers, however I am not sure how many inserts you would like to be given with the Rx. Can you please go in and adjust as you see fit andsign? Thank you, [place] * Kalyani Rodriguez - 05/24/2025 2:58 PM EDT Patient is calling for an Order for diabetic boots for Winter? Please advise, He states it should be faxed to [facility] @ [phone]. Thanks. documented in this encounter Plan of Treatment Upcoming Encounters Date Type Department Care Team (Late st Contact Info) Description 09/15/2025 10:00 AM EST Office Visit Orthopedic Surgery - [place] [address] [phone] Michael Mercedes, DPM [address] [phone] documented as of this encounter Goals Goal [...] on filedocumented in this encounter Care Teams Ward Assistant Relationship Specialty Start Date End Date Zeb Ca MD [address] [place] [address] [address] [place] PCP - General Internal Medicine 05/07/24 documented as of this encounter
--- OUTSIDE RECORDS SUMMARY | 2025-06-27 07:43 | XMS_ITS | Data Portability ---
Author Organization [facility] [facility] Address [address] [place] [address] Care Team Providers Care Forepart Rounder Name Role Phone HIM CCA OTHER Assessment Encounter Date Assessment Date Assessment LastModified by Organization Details LastModified Time 12/25/2022 12/25/2022 Mr. Shaheen Munoz is a 52yoM w/ a PmHx of CKD, DM2 who is seen today for right sided chest pain. Mr. Munoz reports that on Friday he developed right sided chest pain that radiated towards his back. He presented to [place] ED where he was told that it wasn't cardiac in nature and was likely muscular pain. He states that the pain improved but then reoccured today while walking around. He reports that it is worsened by moving his right arm. No left sided chest pain or shortness of breath, no numbness/tingli ng to b/l UE. Took tylenol with minimal relief this morning. VSS. Classifier Tender on site reports no distress. 12 lead [...] Recorded Heart rate Respiratory rate Oxygen saturation Systolic And Diastolic Provider Name and Address Organization Details Last Updated DateTime 12/25/2022 85 /min 20 /min 98 % 122/84 mm[Hg] Not Available [facility] - production 15:50:58 Social History None recorded. Functional Status None recorded. Mental Status None recorded. Family History Nothing Reported. Medical History No medical history recorded. Past Encounters Encounter ID Performer Location Encounter Start Date Encounter Closed Date Diagnosis/Indication Diagnosis SNOMED-CT Code Diagnosis ICD10 Code Diagnosis IMO Codes Diagnosis Note [id number] Lilli López MD [facility] - [facility] [address] [place] [phone] 12/25/2022 15:50:55 12/27/2022 14:03:53 Chest wall pain 970512718 R07.89 Health Concerns Section Related Observation LastModified by Organization Detai ls LastModified Time None Recorded Concern Status LastModified by Organization Details LastModified Time None Recorded Advance Directives Directive None Recorded Payers Insurance Date Sequence Insurance Name Policy Number Policy Foreman Covered Member ID Foreman Member ID Guarantor Name 12/05/2023 1 [facility] - DOS ON OR AFTER 2022 - DUAL ELIGIBLE - [employer] AND ONE [employer] (MEDICARE REPLACEMENT/ADV ANTAGE - HMO) Shaheen Munoz [id number] Shaheen Munoz Notes Date Note Type Note Provider Name and Address Organization Details Recorded Time 12/25/2022 text/html HPI: 52 y.o. M reports going to [facility] ER on Sat due to cp. He [...] ..................... ..................... ..................... ..................... ..................... ..................... ............... Classifier Tender Note From Boris Wheeler: [facility] dispatched to [...] ago (Friday) and went to the ER ([facility]) PT states ER told him blood labs were normal and ECG was normal and this was a muscular pain. PT does not have paperwork from visit. [facility] [place] condition[place]history. [facility] [facility] [place] 12 [place] ECG and 15mg Ketorolac. [facility] crews completes 12 lead showing non diagnostic for STEMI. 15mg ketorolac administered via IM to PT right deltoid. *All times are approximate and red flags discussed* ..................... ..................... ..................... ..................... ..................... ..................... ............... Disposition: Fulfilled Lilli López MD [address] [facility],[address], [place], [address], [facility] 12/25/2022 21:14:30
[2025-06-27 07:52] LABS: MANUAL DIFF FLAG NO
[2025-06-27 08:28] LABS: Hematocrit 35.5 % (42.0-52.0); Hemoglobin 11.0 g/dl (14.0-18.0); Imm Gran Abs Auto 0.06 X10*3/uL (0.00-0.03); Imm Gran Pct Auto 1.0 % (0.0-0.4); Lymphocytes Absolute Auto 1.5 X10*3/uL (1.2-4.9); Mean Corpuscular HGB Conc 31.0 g/dl (31.0-36.0); Mean Corpuscular Hemoglobin 28.3 pg (27.0-33.0); Mean Corpuscular Volume 91.3 fL (80.0-98.0); NRBC Abs Auto 0.000 X10*3/uL (0.0-0.012); NRBC Pct Auto 0.0 /100WBC (0.0-0.2); Platelet Count 220 X10*3/uL (160-400); Red Blood Count 3.89 X10*6/uL (4.60-5.80); White Blood Count 6.2 X10*3/uL (4.8-10.8)
[2025-06-27 08:52] LABS: Appearance Urine Clear; Glucose Urine UA 500 mg/dL (Negative); PH 6.0 (5.0-9.0); Specific Gravity - Urine 1.010 (1.005-1.025)
[2025-06-27 08:57] LABS: Alanine Aminotransferase 35 U/L (0-40); Albumin Level 4.6 g/dL (3.5-5.0); Alkaline Phosphatase 174 U/L (39-117); Anion Gap 15 (12-20); Aspartate Amino Transferase 27 U/L (5-37); Blood Urea Nitrogen 59 mg/dL (9-16); Calcium 8.8 mg/dL (8.4-10.2); Carbon Dioxide 23 mmol/L (22-29); Chloride 110 mmol/L (96-108); Cholesterol 163 mg/dL (<200); Estimated Glomerular Filt Rate 20; HDL Cholesterol 42 mg/dL (>40); Potassium 5.2 mmol/L (3.3-5.1); Sodium 143 mmol/L (135-145); Total Protein 7.4 g/dL (6.5-8.0); Triglycerides 142 mg/dL (<150)
[2025-06-27 09:18] LABS: Vitamin B12 803 pg/mL (200-900)
[2025-06-27 09:33] LABS: Microalbum/Creatinine Ratio Ur 142.9 ug/mg cr (<30)
== END 2025-06-27 07:41 | disposition home or self-care (01) ==
LOC: HO.LAB 07:40
PROVIDERS: Internal Medicine; Absent Provider Student in an Organized Health Care Education/Training Program; PCP Internal Medicine; Visit Provider Internal Medicine
DX: Z01.84 Encounter for antibody response examination (principal); E10.22 Type 1 diabetes mellitus with diabetic chronic kidney disease; N18.4 Chronic kidney disease, stage 4 (severe); E10.42 Type 1 diabetes mellitus with diabetic polyneuropathy; E55.9 Vitamin D deficiency, unspecified; R30.0 Dysuria; E78.00 Pure hypercholesterolemia, unspecified; D64.9 Anemia, unspecified
CPT/HCPCS: 36415; 80053; 80061; 81003; 82043; 82306; 82570; 82607; 82985; 83036; 84443; 84681; 85025; 86341

== ENCOUNTER 2025-06-29 09:09 | Outpatient (AMB) | payer OTHER, SELFPAY ==
[2025-06-29 09:24] VITALS: BP 102/66; PULSE 88; RESP 18; O2SAT 98; BMI 32.9
--- NOTE | 2025-06-29 09:24 | A.OFFPC_ITS ---
Vital Signs 06/29/25 09:24 Height 5 ft 9 in Weight 223 lb BMI 32.9 BP 102/66 Blood Pressure Location Lt brachial Position Sitting Respiration 18 Pulse 88 Pulse Source Pulse Oximeter Temp Source Temporal Artery Scan Pulse Oximetry (%) 98 Oxygen Delivery Method Room Air [facility] Room Worker Required: No Accompanied by: Self / Same As Patient Allergies gabapentin Allergy (Unknown, Verified 06/29/25 10:08) kidneys can't break it Medication List - Last Reconciled 06/29/25 by Zeb Ca MD albuterol sulfate 90 mcg/actuation 2 puffs inhalation Q4H PRN aripiprazole 15 mg PO QAM calcitriol 0.25 mcg PO Q OTHER DAY calcium polycarbophil (Fiber (calcium polycarbophil)) 625 mg PO BID PRN dapagliflozin propanediol (Farxiga) 10 mg PO DAILY dexlansoprazole (Dexilant) 60 mg PO DAILY 30 days ergocalciferol (vitamin D2) 1,250 mcg PO WE@0900 fluoxetine 40 mg PO DAILY fluticasone propionate 220 mcg/actuation 1 puff PO BID lamotrigine (Lamictal) 200 mg PO BID lansoprazole 30 mg PO DAILY levothyroxine 125 mcg PO DAILY@0600 lisinopril 2.5 mg PO BID 90 days melatonin 5 mg PO BEDTIME methocarbamol 750 mg PO Q8H 30 days omega 4-xah-swe-fish oil 300 mg (120 mg- 180mg)-1,000 mg 1 cap PO DAILY 90 days pregabalin (Lyrica) 100 mg PO BID rosuvastatin 5 mg PO DAILY sodium bicarbonate 650 mg PO QID 30 days sodium zirconium cyclosilicate (Lokelma) 10 grams PO MOWEFR@0900 trazodone 50 mg PO BEDTIME PRN zonisamide 400 mg (4 x 100 mg) PO DAILY 30 days Tobacco use date assessed: 06/29/25 Dental Screening Dental Screen Date: 06/29/25 Did you have a dental visit in the last 12 months?: Yes Did you have a dental problem in the last 6 months where you did not have access to dental care?: No Was dental information given to patient?: Patient has dentist HPI 4mt f/u HPI Details Patient comes in today for his follow up visit States that he currently feels okay He denies any headaches or dizziness Denies any chest pains, no increased SOB No nausea/vomiting, no abdominal pain No change in bowel habits noted He had his follow labs done a couple of days ago - to discuss his results He would also like to get his flu shot today [facility] Medical History Peripheral neuropathy Essential hypertension Right shoulder pain Paresthesia of both lower extremities Type 2 diabetes mellitus with diabetic chronic kidney disease Type 2 diabetes mellitus with hyperglycemia Left shoulder pain Chronic kidney disease, stage 3 Difficulty walking Dental caries Preoperative examination Synovial cyst of elbow COVID-19 Type 1 diabetes Type 1 diabetes mellitus Polycystic kidney disease Lumbar spondylosis Degenerative joint disease of thoracic spine Overweight (BMI 25.0-29.9) Chronic kidney disease, stage 4 (severe) Prolonged QT interval Hyperkalemia Memory impairment Vitamin D deficiency Hypothyroidism Seizures Anxiety Fatty liver IBS (irritable colon syndrome) GERD (gastroesophageal reflux disease) Obesity (BMI 30-39.9) Schizoaffective disorder Asthma Epilepsy Pure hypercholesterolemia 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 1. Little interest or pleasure in doing things: nearly every day 2. Feeling down, depressed, or hopeless: nearly every day 3. Trouble falling or staying asleep, or sleeping too much: nearly every day 4. Feeling tired or having little energy: nearly every day 5. Poor appetite or overeating: nearly every day 6. Feeling bad about yourself - or that you are a failure or have let yourself or your family down: nearly every day 7. Trouble concentrating on things, such as reading the newspaper or watching television: nearly every day 8. Moving or speaking so slowly that other people could have noticed. Or the opposite - being so fidgety or restless that you have been moving around a lot more than usual: nearly every day 9. Thoughts that you would be better off or of hurting yourself in some way: nearly every day Total score: 27 Depression Screening Interpretation: Positive Depression Screening Follow-up: Existing condition and In treatment Depression Screening Done: Yes 46343 - PHQ-9 Billing: Yes Source: Developed by Drs. Emiliano Ledezma, Ashly Pat, Rohit Tilley and colleagues, with an educational danette from [employer]. Thrive Questionnaire Date Thrive assessed: 06/29/25 I am a: Patient What is your living situation today?: I have a steady place to live Within the past 12 months, did the food you bought not last and you didn't have the money to get more?: I choose not to answer this question Within the past 12 months, did you worry whether your food would run out before you got money to buy more?: I choose not to answer this question Do you have trouble paying for medicines?: No Do you have trouble getting transportation to medical appointments?: No Do you have trouble paying your heating and electricity bill?: No Do you have trouble taking care of your child, family member or friend?: No Do you have trouble with day-to-day activities such as bathing, preparing meals, shopping, managing finances, etc.?: No Are you currently unemployed and looking for a job?: Yes Are you interested in more education?: I choose not to answer this question Please select the resources that you would like help with: Food Currently or been in a relationship where the following occur: I choose not to answer THRIVE Score: 0 AUDIT C Alcohol Use Questionnaire (AUDIT-C) 1. How often do you have a drink containing alcohol?: Monthly or less Total Score: 1 Score Reviewed/Action Taken: Yes ELEUTERIO-7 AMB Questionnaire ELEUTERIO-7 Date ELEUTERIO - 7 assessed: 02/16/25 Feeling nervous, anxious, or on edge: 0 = Not at all Not being able to stop or control worryin = Not at all Worrying too much about different things: 0 = Not at all Trouble relaxin = Not at all Being so restless that it is hard to sit still: 0 = Not at all Becoming easily annoyed or irritable: 0 = Not at all Feeling afraid as if something awful might happen: 0 = Not at all Total ELEUTERIO-7 score (0-4 normal; 5-9 mild; 10-14 moderate; 15-21 severe): 0 Source: Developed by Drs. Emiliano Ledezma, Ashly Pat, Rohit Tilley and colleagues, with an educational danette from [employer]. Review of Systems Const Denies chills, Reports fatigue, Denies fever(s) and Denies headache(s) ENT Denies dysphagia, Denies dizziness, Denies otalgia, Denies headache(s), Denies neck pain, Denies odynophagia and Denies sore throat Card Denies chest pain, Denies palpitations and Denies dyspnea Resp Denies chest congestion, Denies cough and Denies dyspnea GI Denies abdominal pain, Denies constipation, Denies dysphagia, Denies heartburn, Denies diarrhea, Denies nausea, Denies odynophagia and Denies vomiting Denies difficulty urinating, Denies dysuria, Denies nocturia and Denies urinary frequency Musc Reports back pain (on and off), Denies arthralgias, Denies joint swelling and Denies neck pain Skin/Breast Denies rash Neuro Denies dizziness, Denies headache(s) and Reports paresthesias (in both feet ) Psych Reports anxiety and Reports depression (Rx helping) Endo Reports fatigue and Denies palpitations Physical exam (Primary Care) Vital Signs: Last Vital Signs Pulse 88 06/29/25 09:24 Resp 18 06/29/25 09:24 BP 102/66 06/29/25 09:24 Pulse Ox 98 06/29/25 09:24 Oxygen Delivery Method Room Air 06/29/25 09:24 BMI result Body Mass Index 32.9 Tobacco/Smoking Status: Tobacco use Status Tobacco use date assessed 06/29/25 06/29/25 09:31 Patient Tobacco Use Status Former Tobacco user 06/29/25 09:31 Tobacco use type Cigarette 06/29/25 09:31 e-Cigarette/Vaping Use Never Used 06/29/25 09:31 PHQ-9: PHQ-9 Score PHQ-9: Total score 27 06/29/25 10:15 Depression Screening Interpretation: Positive Depression Screening Follow-up: Existing condition and In treatment Thrive Assessment: Date of Thrive Assessment Date Thrive assessed 06/29/25 06/29/25 09:31 Currently or been in a relationship where the following occur: I choose not to answer Const General: no acute distress and alert HENMT Ears: TM's normal bilaterally and EAC's normal Throat: Yes posterior oropharynx normal and Yes tonsils normal (no TP congestion noted) Neck Neck: Yes supple and No lymphadenopathy Thyroid: Thyroid normal Resp Auscultation: clear to auscultation bilaterally, no rales and no wheezes Cardio Rate: regular rate Rhythm: regular rhythm Heart sounds: no murmurs GI Palpation (GI): Soft to palpation and nontender Auscultation: normal bowel sounds General: Yes no CVA tenderness Back/Spine/Pelvis Back: no CVA tenderness Thoracic/Lumbar Spine: No lumbar spinal tenderness Skin Rashes: no rashes Extrem General: Yes no clubbing, cyanosis or edema Office Procedures Flu Questionnaire Does the patient have a severe egg allergy?: No Does the patient have severe life threatening allergies?: No Does the patient have a fever or illness today?: No Has the patient ever had Guillain-Florence Syndrome?: No Has the patient ever had any past reaction to a flu shot?: No Immunizations Fluarix [id number] (PF) 45 mcg (15 mcg x 3)/0.5 mL IM syringe Performing Provider: Zeb Ca MD [facility] Administered by: Samra Mcclelland CMA on 06/29/25 10:19 Dose Route Admin Location Dispensed Lot Number Expiration Date [facility] Last Model Department Supervisor 0.5 mL IM Left Deltoid 0.5 mL [id number] 01/31/26 [id number] [employer] VIS Given Date VIS Provided VIS Publication Date 06/29/25 Single Vaccine 24 Eligibility Eligibility Date Funding Source Not [facility] Eligible 06/29/25 Private Results Reviewed Results Reviewed: Laboratory Tests 06/27/25 07:50 WBC 6.2 Hgb 11.0 L Hct 35.5 L Plt Count 220 Sodium 143 Potassium 5.2 H Creatinine 3.31 H Estimated GFR 20 Fasting Glucose 124 H Hemoglobin A1c % 6.1 H C-Peptide 4.82 H Calcium 8.8 AST 27 ALT 35 Triglycerides 142 Cholesterol 163 LDL Cholesterol, Calc 93 HDL Cholesterol 42 Vitamin B12 803 25-OH Vitamin D Total 59.7 TSH 0.53 Ur Specific [place] 1.010 Urine Protein Trace Urine Glucose (UA) 500 H Urine Blood Negative Urine Nitrite Negative Ur Leukocyte Esterase Negative Microalb/Creat Ratio 142.9 H Coding Level of Care Code Est Pt Level 4 (43996) Diagnoses Type 1 diabetes mellitus with stage 4 chronic kidney disease E10.22; N18.4 Chronic kidney disease stage: stage 4 (GFR 15-29) Diabetes mellitus complication detail: with chronic kidney disease Diabetes mellitus complication status: with kidney complications Chronic kidney disease, stage 4 (severe) N18.4 Pure hypercholesterolemia E78.00 Hyperparathyroidism E21.3 Essential hypertension I10 Elevated LFTs R79.89 Polyneuropathy associated with underlying disease G63 Peripheral neuropathy type: polyneuropathy associated with underlying disease Vitamin D deficiency E55.9 Acquired hypothyroidism E03.9 Hypothyroidism type: acquired Mild intermittent asthma without complication J45.20 Asthma complication type: uncomplicated Asthma persistence: intermittent Asthma severity: mild Nonintractable epilepsy without status epilepticus, unspecified epilepsy type G40.909 Epilepsy type: unspecified Intractability: not intractable Status epilepticus: without status epilepticus Gastroesophageal reflux disease without esophagitis K21.9 Esophagitis presence: without esophagitis Schizoaffective disorder, unspecified type F25.9 Schizoaffective disorder type: unspecified Additional Codes PHQ-9 - 25927 - PHQ-9 Billing: Yes ([id number]) Assessment & Plan Assessment & Plan (1) Type 1 diabetes mellitus: Code(s): E10.9 - Type 1 diabetes mellitus without complications Category: Medical Qualifiers: Chronic kidney disease stage: stage 4 (GFR 15-29) Diabetes mellitus complication detail: with chronic kidney disease Diabetes mellitus complication status: with kidney complications Qualified Code(s): E10.22 - Type 1 diabetes mellitus with diabetic chronic kidney disease; N18.4 - Chronic kidney disease, stage 4 (severe) Plan: Patient has diabetes for years and testing (elevated CLAIR Ab in April 2024) indicate that he is a type 1 diabetic Reinforced diabetic diet - goal is HgbA1c of at least <7.0% His HgbA1c was at 6.1% on his labs done a couple of days ago (in-office HgbA1c was previously at 5.9% back on 12/01/2024) Continue Lantus 8 units SQ Q HS and Farxiga 10 mg QD (this was started by nephrology for his CKD) Follow up with diabetic academic interventionist and with endocrinology as scheduled (2) Chronic kidney disease, stage 4 (severe): Code(s): N18.4 - Chronic kidney disease, stage 4 (severe) Category: Medical Plan: His renal function has been stable on his recent labs Continue Farxiga 10 mg QD and Lisinopril 2.5 mg QD Have emphasized to patient again complete avoidance of all NSAIDs and tight control of his BP and blood sugar to slow down progression of his kidney disease His abdominal US done in November 2023 also incidentally revealed (+) enlarged kidneys replaced by innumerable cysts consistent with autosomal dominant polycystic kidney disease and bilateral nonobstructing renal calculi (3) Pure hypercholesterolemia: Code(s): E78.00 - Pure hypercholesterolemia, unspecified Category: Medical Plan: Results of his labs done a couple of days ago reviewed and discussed with patient Reinforced low cholesterol diet Continue Rosuvastatin at 5 mg QD Will have him recheck his labs and fasting lipids in 4 months for follow up (4) Hyperparathyroidism: Code(s): E21.3 - Hyperparathyroidism, unspecified Category: Medical Plan: His intact PTH level remains significantly elevated on his recent labs At this point, he will likely require parathyroidectomy but his advanced CKD may complicate his management Follow-up with endocrinology and with nephrology as scheduled (5) Essential hypertension: Code(s): I10 - Essential (primary) hypertension Category: Medical Plan: Reinforced low-sodium diet -? goal is systolic BP of at least 120 to 130 mm or less Continue Lisinopril 2.5 mg QD (6) Elevated LFTs: Comment: BASELINE LABS;: 03/30/2020 total bili 0.4, alk-phos is 165, AST/ALT is 27/34 11/20/23 06:50 Plt Count 219 Estimated GFR 24 Total Bilirubin 0.4 AST 134 H ALT 61 H Alkaline Phosphatase 153 H TSH 0.76 MONSE Screen NEGATIVE Anti-Mitochondrial Ab NEGATIVE Anti-Smooth Muscle Ab <20 Hepatitis A IgM Ab Nonreactive Hep Bs Antigen Negative Hep Bs Antibody NONREACTIVE Hep B Core Total Ab Nonreactive Hepatitis C Ab (EIA) Nonreactive HIV 1&2 Ab/P24 Ag 4thGn Nonreactive CURRENT LABS 02/28/25 Total Bilirubin 0.3 Direct Bilirubin 0.1 AST 28 ALT 33 Alkaline Phosphatase 161 H ULTRASOUND OF THE ABDOMEN 02/04/2025 Findings: The visualized pancreatic head, aorta, and inferior vena cava are unremarkable. The liver is not well seen due to limited acoustic window, normal in size, grossly normal in echogenicity, no focal lesion is seen in the visualized liver. No bile duct dilatation. Common duct 3 mm diameter. Physiologic distention of the gallbladder, no stone is seen, avascular nonshadowing echogenic focus 4 mm along the gallbladder wall may reflect small polyp. No gallbladder wall thickening. Negative sonographic Moss's sign. Main portal vein shows antegrade flow. Bilateral kidneys are not well seen due to bowel gas shadowing, they appear enlarged with diffusely increased echogenicity, right kidney measures 16.3 cm in length, left kidney 16.6 cm in length, no apparent calculus or hydronephrosis. Numerous simple and septated cysts of the bilateral kidneys, dominant cyst of the each kidney is simple, 6.2 cm on the right, 5.0 cm on the left, please note multiple cysts including the septated cyst are not well visualized. Spleen is partially visualized, grossly normal, 10.6 cm in length. No free fluid in the right upper quadrant of the abdomen. Impression: 1. Suggestion of medical renal disease and polycystic kidney disease, renal cysts are not well visualized. 2. Probable 4 mm gallbladder polyp. MRI OF THE ABDOMEN 03/28/2025 IMPRESSION: Concerning autosomal dominant polycystic kidney disease in the correct clinical settings. Multiple likely hemorrhagic cystic lesions, bilaterally. Subcentimeter cystic lesions, head and tail of the pancreas. Hepatomegaly, mild. Code(s): R79.89 - Other specified abnormal findings of blood chemistry Category: Medical Plan: His LFTs have remained normal on his most recent labs - this was likely due to effects of his previous statin Rx (Atorvastatin) Abdominal US done in November 2023 revealed findings consistent with hepatic steatosis Patient had a repeat abdominal US done a couple of weeks ago (ordered by GI) that showed findings of medical renal disease and polycystic kidney disease although the renal cysts are supposedly not well visualized. The view of the liver was also limited but there does not appear to be any abnormalities at this time. There is also a probable 4 mm gallbladder polyp seen incidentally Will continue to monitor his LFTs regularly (7) Peripheral neuropathy: Code(s): G62.9 - Polyneuropathy, unspecified Category: Medical Qualifiers: Peripheral neuropathy type: polyneuropathy associated with underlying disease Qualified Code(s): G63 - Polyneuropathy in diseases classified elsewhere Plan: Have advised patient that this is primarily the reason for the recurrent symptoms of paresthesia in his extremities MG and NCV extremities done last month (January 2025) revealed findings of moderately severe sensory and motor chronic peripheral neuropathy with features of demyelination and axonal loss Continue topical Lidocaine ointment 5% QID PRN for symptomatic reliefand Pregabalin 100 mg BID (8) Vitamin D deficiency: Code(s): E55.9 - Vitamin D deficiency, unspecified Category: Medical Plan: Continue Vitamin D2 66904 units once a week (9) Hypothyroidism: Code(s): E03.9 - Hypothyroidism, unspecified Category: Medical Qualifiers: Hypothyroidism type: acquired Qualified Code(s): E03.9 - Hypothyroidism, unspecified Plan: His TFTs remained normal on his recent labs Continue Levothyroxine 125 mcg QD Will recheck his TFTs in 4 months (10) Asthma: Code(s): J45.909 - Unspecified asthma, uncomplicated Category: Medical Qualifiers: Asthma complication type: uncomplicated Asthma persistence: intermittent Asthma severity: mild Qualified Code(s): J45.20 - Mild intermittent asthma, uncomplicated Plan: Controlled Continue Albuterol HFA 2 inhalations up to 4 times a day as needed Follow up with pulmonary as scheduled (11) Epilepsy: Code(s): G40.909 - Epilepsy, unspecified, not intractable, without status epilepticus Category: Medical Qualifiers: Epilepsy type: unspecified Intractability: not intractable Status epilepticus: without status epilepticus Qualified Code(s): G40.909 - Epilepsy, unspecified, not intractable, without status epilepticus Plan: EEG done in the past showed findings consistent with partial complex seizure - patient states that he has not had any seizures lately Continue Zonisamide 100 mg QID Follow-up with Neurology as scheduled (12) GERD (gastroesophageal reflux disease): Code(s): K21.9 - Gastro-esophageal reflux disease without esophagitis Category: Medical Qualifiers: Esophagitis presence: without esophagitis Qualified Code(s): K21.9 - Gastro-esophageal reflux disease without esophagitis Plan: Dietary restrictions reinforced Continue Omeprazole 20 mg QD (13) Schizoaffective disorder: Code(s): F25.9 - Schizoaffective disorder, unspecified Category: Medical Qualifiers: Schizoaffective disorder type: unspecified Qualified Code(s): F25.9 - Schizoaffective disorder, unspecified Plan: Continue Lamotrigine 200 mg twice a day, Zyprexa 5 mg daily at bedtime and Fluoxetine 40 mg QD Continue Trazodone 50 mg Q HS and Melatonin 5 mg Q HS Follow-up with Psychiatry as scheduled Plan Per request, flu vaccine given today Follow up in 4 months Orders: Orders Microalbumin, Random (w Creat) 4 Months E11.9 - Type 2 diabetes mellitus without complications Hemoglobin A1c 4 Months E11.9 - Type 2 diabetes mellitus without complications Complete Blood Count Auto Diff 4 Months D64.9 - Anemia, unspecified Comprehensive [place]. Panel Fast 4 Months E78.00 - Pure hypercholesterolemia, unspecified Lipid Panel 4 Months E78.00 - Pure hypercholesterolemia, unspecified Free T4 (Free Thyroxine) 4 Months E03.9 - Hypothyroidism, unspecified Thyroid Stimulating Hormone 4 Months E03.9 - Hypothyroidism, unspecified UA CC w/rflx Micro + Cult 4 Months R30.0 - Dysuria Vitamin D 25-OH Total 4 Months E55.9 - Vitamin D deficiency, unspecified Vitamin B12 and Folate 4 Months E53.8 - Deficiency of other specified B group vitamins Influenza [id number] Immunization Today Z23 - Encounter for immunization
--- OUTSIDE RECORDS SUMMARY | 2025-06-29 10:00 | XMS_ITS | Clinical Summary ---
Author Organization [address] [facility] Address [address] [place] [address] Phone Care Team Providers Care Poultry Culler Name Role Phone Zeb Ca MD Primary Care Provider + [phone] Allergies No known active allergies Medications albuterol [...] AM EST Office Visit Orthopedic Surgery - [address] [phone] Michael Mercedes, DPM Tendonitis, Achilles, left (Primary Dx); Type II diabetes mellitus with peripheral circulatory disorder ([facility] V24, [facility] V28); Diabetic mononeuropathy simplex ([facility] V24, [facility] V28); Metatarsalgia of both feet; Corns and callosities; Dermatophytosis of nail; Pain in toe of left foot; Pain in toe of right foot 05/24/[address] [facility] [address] [phone] Michael Mercedes DPM 05/10/[address] [facility] [address] [phone] Michael Mercedes DPM 05/05/2025 1:15 PM EDT Office Visit Orthopedic [facility] [address] [phone] Michael Mercedes DPM Tendonitis, Achilles, left (Primary Dx); Bursitis of left foot; Dermatophytosis of nail; Plantar fascial fibromatosis 04/12/[address] [facility] [address] [phone] Michael Mercedes DPM 04/11/2025 [place] [facility] [address] [phone] Marion Black from Last 3 Months Social [...] AM EST Office Visit Orthopedic Surgery - [place] [address] [phone] Michael Mercedes, DPM [address] [phone] Health Maintenance Due Date Last [...] ID:[id number] Group ID:[id number] Type:Not on file Address: [facility] [address] [id number] MEDICAID - [place] Care Teams Poultry Culler Relationship Specialty Start Date End Date Zeb Ca MD [address] [place] [address] [address] [place], [place] PCP - General Internal Medicine 05/07/24
--- OUTSIDE RECORDS SUMMARY | 2025-06-29 10:00 | XMS_ITS | Patient Health Record ---
Author Organization [facility] Address [address] [place] [address] Care Team Providers Care Irb Compliance Coordinator Name Role Phone Roby GUTIERREZ, [place] Primary Care Provider Unava Emiliano Miller Unavailable [phone] Reason For Referral No Information Plan Of Treatment No Information Insurance Providers Payer Name Payer Address Payer Phone Subscriber Number Group Number Insured Name Patient Relationship to Insured Coverage Start Date Coverage End Date [facility] [address] [place] [address] [id number] SAMEER HERR Self - patient is the insured
--- OUTSIDE RECORDS SUMMARY | 2025-06-29 10:00 | XMS_ITS | Data Portability ---
Author Organization [email or web address] [facility] [place] [employer] [facility] Address [address] [place] [address] Care Team Providers Care Non Ferrous Material Handler Name Role Phone HIM CCA OTHER Assessment Encounter Date Assessment Date Assessment LastModified by Organization Details LastModified Time 12/25/2022 12/25/2022 Mr. Shaheen Munoz is a 52yoM w/ a PmHx of CKD, DM2 who is seen today for right sided chest pain. Mr. Munoz reports that on Friday he developed right sided chest pain that radiated towards his back. He presented to [place] ED where he was told that it wasn't cardiac in nature and was likely muscular pain. He states that the pain improved but then reoccured today while walking around. He reports that it is worsened by moving his right arm. No left sided chest pain or shortness of breath, no numbness/tingli ng to b/l UE. Took tylenol with minimal relief this morning. VSS. Academic Advisement Director on site reports no distress. 12 lead [...] ICD10 Code Diagnosis IMO Codes Diagnosis Note [id number] Lilli López MD Main - [facility] [address] [place] [phone] 12/25/2022 15:50:55 12/27/2022 14:03:53 Chest wall pain [id number] R07.89 Health Concerns Section Related Observation LastModified by Organization Detai ls LastModified Time None Recorded Concern Status LastModified by Organization Details LastModified Time None Recorded Advance Directives Directive None Recorded Payers Insurance Date Sequence Insurance Name Policy Number Policy Foreman Covered Member ID Foreman Member ID Guarantor Name 12/05/2023 1 [facility] - DOS ON OR AFTER 2022 - DUAL ELIGIBLE - GROUP HOME OPTIONS AND ONE CARE (MEDICARE REPLACEMENT/ADV ANTAGE - HMO) Shaheen Munoz [id number] Shaheen Munoz Notes Date Note Type Note Provider Name and Address Organization Details Recorded Time 12/25/2022 text/html HPI: 52 y.o. M reports going to [facility] ER on Sat due to [...] ..................... ..................... ..................... ..................... ..................... ..................... ............... Academic Advisement Director Note From Boris Wheeler: [facility] dispatched to [...] ago (Friday) and went to the ER ([facility]) PT states ER told him blood labs were normal and ECG was normal and this was a muscular pain. PT does not have paperwork from visit. [facility] contacted and informed of PT condition/history. [facility] orders 12 lead ECG and 15mg Ketorolac. [facility] crews completes 12 lead showing non diagnostic for STEMI. 15mg ketorolac administered via IM to PT right deltoid. *All times are approximate and red flags discussed* ..................... ..................... ..................... ..................... ..................... ..................... ............... Disposition: Fulfilled Lilli López MD [address] [facility],[address], [place], [address], [employer] 12/25/2022 21:14:30
--- OUTSIDE RECORDS SUMMARY | 2025-06-29 10:00 | XMS_ITS | Clinical Summary ---
Author Organization [facility] Address [address] [place] [address] Phone Care Team Providers Care Coupon Clerk Name Role Phone Zeb Ca MD Primary Care Provider [phone] Allergies No known active allergies Medications zonisamide [...] diskus inhaler Activ e ergocalciferol 1.25 MG (64822 UT) capsule Take 1 capsule by mouth [...] 05/20/2025 Refill [facility] [address] [place] [address] Nelson Knowles MD 05/12/2025 Refill [facility] [address] [facility] [address] [place] [phone] Narcisa Davis MA 05/11/2025 Orders Only [facility] [address] [place] [address] Nelson Knowles MD Chronic kidney disease, stage 4 (severe) (HCC); Renal osteodystrophy 03/31/2025 10:15 AM EDT Office Visit [facility] [address] [phone] Nelson Knowles MD Autosomal dominant polycystic kidney [...] Office Visit [facility] [address] [phone] Nelson Knowles MD [address] [phone] Health Maintenance Due Date Last Done Comments [...] Most Recently Relevant to Health Maintenance Insurance [facility] ([id number]) [facility] ([id number]) Care Teams Coupon Clerk Relationship Specialty Start Date End Date Zeb Ca MD [address] [place] [address] PCP - General Internal Medicine 09/21/21
--- OUTSIDE RECORDS SUMMARY | 2025-06-29 10:00 | XMS_ITS | Encounter Summary ---
Author Organization [email or web address] Address [address] [place] [address] Care Team Providers Care Aerial Planting And Cultivation Manager Name Role Phone Zeb Ca MD Primary Care Provider Reason for Visit * Reason Onset Date Comments Order for Diabetic boots 05/24/2025 Encounter Details Date Type Department Care Team (Late st Contact Info) Description 05/24/2025 Telephone Orthopedic Surgery - [place] [address] [phone] Michael Mercedes, DPM [address] [facility] [address] [place] [phone] Social History Tobacco Use Types Packs/Day Years [...] patient, he stated that he spoke with [facility] and they will cover two pairs of diabetic shoes. He was able to get a pair of boots but he is looking for a new order for sneakers. Once completed, please fax to [facility] in [place]. Dr. Mercedes, I did pend an order [...] be faxed to [facility] @ [phone]. Thanks. documented in this encounter Plan of Treatment Upcoming Encounters Date Type Department Care Team (Late st Contact Info) Description 09/15/2025 10:00 AM EST Office Visit Orthopedic Surgery - [place] [address] [phone] Michael Mercedes, DPM [address] [phone] documented as of this encounter Goals Goal [...] on filedocumented in this encounter Care Teams Aerial Planting And Cultivation Manager Relationship Specialty Start Date End Date Zeb Ca MD [address] [place] [address] [address] [place] PCP - General Internal Medicine 05/07/24 documented as of this encounter
== END 2025-06-29 10:24 | disposition home or self-care (01) ==
LOC: HO.HMCH 09:10
PROVIDERS: PCP Internal Medicine; Visit Provider Internal Medicine
DX: E10.22 Type 1 diabetes mellitus with diabetic chronic kidney disease (principal); N18.4 Chronic kidney disease, stage 4 (severe); E78.00 Pure hypercholesterolemia, unspecified; E21.3 Hyperparathyroidism, unspecified; I12.9 Hypertensive chronic kidney disease with stage 1 through stage 4 chronic kidney disease, or unspecified chronic kidney disease; R79.89 Other specified abnormal findings of blood chemistry; G63 Polyneuropathy in diseases classified elsewhere; E55.9 Vitamin D deficiency, unspecified; E03.9 Hypothyroidism, unspecified; G40.909 Epilepsy, unspecified, not intractable, without status epilepticus; F25.9 Schizoaffective disorder, unspecified; J45.20 Mild intermittent asthma, uncomplicated; K21.9 Gastro-esophageal reflux disease without esophagitis; Z23 Encounter for immunization

== ENCOUNTER → 2025-06-29 09:09 | Outpatient (BNVA) | payer OTHER, SELFPAY | PROVIDERS: PCP Internal Medicine; Visit Provider Internal Medicine | DX: E10.22 Type 1 diabetes mellitus with diabetic chronic kidney disease (principal); I12.9 Hypertensive chronic kidney disease with stage 1 through stage 4 chronic kidney disease, or unspecified chronic kidney disease; N18.4 Chronic kidney disease, stage 4 (severe); E78.00 Pure hypercholesterolemia, unspecified; E21.3 Hyperparathyroidism, unspecified; R79.89 Other specified abnormal findings of blood chemistry; G63 Polyneuropathy in diseases classified elsewhere; E55.9 Vitamin D deficiency, unspecified; E03.9 Hypothyroidism, unspecified; J45.20 Mild intermittent asthma, uncomplicated; G40.909 Epilepsy, unspecified, not intractable, without status epilepticus; K21.9 Gastro-esophageal reflux disease without esophagitis; F25.9 Schizoaffective disorder, unspecified; Z23 Encounter for immunization | CPT/HCPCS: 90471; 90656; 96127; 99212 ==